=== PATIENT | female | born 1940 | race Caucasian/White ===

== ENCOUNTER 2023-02-05 07:18 | Inpatient (IN) | payer OTHER ==
[~2023-02-05] VITALS: Ht 393.7 cm; Wt 95.1 kg
[2023-02-05] MEDS ORDERED: methylPREDNISolone SOD SUCC 125 MG/2 ML VL IV ONE ×2 (07:30→08:15)
[2023-02-05 08:08] LABS: Basophils # (auto) 0.1 10 ^3/uL (0-0.2); Basophils % (auto) 0.5 % (0.0-2.0); Eosinophils # (auto) 0.6 10 ^3/uL (0-0.8); Eosinophils % (auto) 5.2 % (0.0-7.0); Hematocrit 36.6 % (36.0-46.0); Lymphocytes # (auto) 1.3 10 ^3/uL (0.4-5.4); Lymphocytes % (auto) 11.9 % (10.0-50.0); Mean Corpuscular Hemoglobin 30.5 pg (28.0-32.0); Mean Corpuscular Hgb Conc. 32.8 g/dL (32.0-36.0); Mean Corpuscular Volume 92.9 fL (80.0-100.0); Monocytes # (auto) 0.7 10 ^3/uL (0-1.3); Neutrophils # (auto) 8.1 10 ^3/uL (1.6-8.6); Neutrophils % (auto) 75.4 % (37.0-80.0); Nucleated Red Blood Cells % 0.3 %; Red Blood Cells 3.94 10^6/uL (4.0-5.20); Red Cell Distribution Width 15.5 % (11.8-14.3); White Blood Cell 10.7 10^3/uL (4.4-10.8)
[2023-02-05] MEDS ORDERED: methylPREDNISolone SOD SUCC 40 MG/ML VL ONE (08:15)
[2023-02-05 08:23] LABS: Albumin 3.4 g/dL (3.4-5.0); Calcium 8.9 mg/dL (8.5-10.1); Potassium 4.4 mmol/L (3.5-5.1)
[2023-02-05 08:25] LABS: Bilirubin, Total 0.6 mg/dL (0.2-1.0); Total Protein 7.4 g/dL (6.4-8.2)
[2023-02-05 08:33] LABS: BUN/Creatinine Ratio 20.5 (10.0-20.0)
[2023-02-05 08:46] LABS: INR 1.05 (0.9-1.15); Partial Thromboplastin Time 30.8 sec (24.6-33.4)
[2023-02-05] MEDS ORDERED: cefTRIAXone 1GM/50ML D5W 50 ML IV ONE (10:15)
[2023-02-05] MEDS ORDERED: AZITHROMYCIN 500MG/ 250ML 250 ML IV ONE (10:15)
[2023-02-05] MEDS: SODIUM CHLORIDE 0.9% 1,000 ML IV SCH ×2 (12:00→22:48)
[2023-02-05] MEDS ORDERED: MORPHINE SULFATE INJ 2 MG/ml SYRG IV PRN (12:00)
[2023-02-05] MEDS ORDERED: NITROGLYCERIN 0.4 MG SL TAB SL PRN (12:00)
[2023-02-05] MEDS ORDERED: ONDANSETRON HCL 4 MG/2 ML VIAL IV PRN (12:00)
[2023-02-05] MEDS ORDERED: PROMETHAZINE W/CODEINE 5 ML ORAL SYRUP PO PRN (12:00)
[2023-02-05 13:54] LABS: Urine Bacteria NONE SEEN /hpf (None Seen); Urine Blood Negative /uL (Negative); Urine Specific Gravity 1.014 (1.001-1.035); Urine WBC <1 /hpf (0 - 5)
[2023-02-05] MEDS ORDERED: ALBUTEROL SULF HFA 90MCG INH 200DOSE IN SCH (14:00)
[2023-02-05] MEDS: PIPERACILLIN-TAZOB 3.375GM 100 ML IV SCH ×2 (14:06→22:48)
[2023-02-05] MEDS: ALBUTEROL SULF 2.5 MG/0.5ML(0.5%) NEB SOLN NEB SCH ×2 (14:26→22:55)
[2023-02-05] MEDS: amLODIPine BESYLATE 5 MG TAB PO SCH (17:31)
[2023-02-05] MEDS ORDERED: AMIODARONE 450mg/250ml AE 250 ML IV SCH (18:30)
[2023-02-05] MEDS ORDERED: AMIODARONE HCL (50 MG/ ML) 3 ML VIAL IV ONE (18:42)
[2023-02-05] MEDS: AMIODARONE HCL 150 MG in D5W 5% 100 ML IV ONE ×2 (18:46→19:33)
[2023-02-05] MEDS ORDERED: DIGOXIN (250MCG/ML) 2 ML AMPULE IV ONE (20:00)
[2023-02-05] MEDS: ENOXAPARIN SOD 80 MG/0.8ML SYRINGE SC SCH (21:02)
[2023-02-05] MEDS ORDERED: METOPROLOL TARTRATE 25 MG TAB PO SCH (22:00)
[2023-02-05] MEDS ORDERED: ENOXAPARIN SOD 60 MG/0.6 ML SYRINGE SC SCH (22:00)
[2023-02-05] MEDS: methylPREDNISolone SOD SUCC 40 MG/ML VL IV SCH (22:48)
[2023-02-05] MEDS: CARVEDILOL 3.125 MG TAB PO SCH (22:48)
[2023-02-05 23:55] VITALS: BP 121/79
[2023-02-06] MEDS: AMIODARONE 450mg/250ml AE 250 ML IV SCH ×3 (00:30→21:03)
[2023-02-06] MEDS ORDERED: BUSP15TA60 PO (00:46)
[2023-02-06] MEDS ORDERED: MULT-1018 PO (00:46)
[2023-02-06] MEDS ORDERED: ZINC220C8 PO (00:46)
[2023-02-06] MEDS ORDERED: ATOR20TA50 PO (00:46)
[2023-02-06] MEDS ORDERED: ALBU2SYP10 NEB (00:46)
[2023-02-06] MEDS ORDERED: FURO1TAB33 PO (00:46)
[2023-02-06] MEDS ORDERED: CHOL20007 PO (00:46)
[2023-02-06] MEDS ORDERED: SODI10PA PO (00:46)
[2023-02-06] MEDS: PIPERACILLIN-TAZOB 3.375GM 100 ML IV SCH ×3 (05:30→21:14)
[2023-02-06 05:33] VITALS: BP_SYST 101; BP_SYST 130; BP_DIAS 57; BP_DIAS 80
[2023-02-06] MEDS: ALBUTEROL SULF 2.5 MG/0.5ML(0.5%) NEB SOLN NEB SCH ×2 (06:53→21:51)
[2023-02-06] MEDS ORDERED: ASPI-543 PO (06:57)
[2023-02-06] MEDS ORDERED: PSYL58.632 PO (06:57)
[2023-02-06 07:19] LABS: BUN/Creatinine Ratio 20.6 (10.0-20.0); Calcium 8.7 mg/dL (8.5-10.1); Potassium 4.5 mmol/L (3.5-5.1)
[2023-02-06] MEDS: ENOXAPARIN SOD 80 MG/0.8ML SYRINGE SC SCH ×3 (08:19→20:45)
[2023-02-06] MEDS: CARVEDILOL 3.125 MG TAB PO SCH ×2 (08:58→21:13)
[2023-02-06] MEDS: FAMOTIDINE 20 MG TAB PO SCH (08:58)
[2023-02-06] MEDS: methylPREDNISolone SOD SUCC 40 MG/ML VL IV SCH ×2 (08:59→21:13)
[2023-02-06 09:00] VITALS: BP 135/91
[2023-02-06 13:00] VITALS: BP 130/89
[2023-02-06] MEDS: SODIUM CHLORIDE 0.9% 1,000 ML IV SCH ×2 (13:45→22:05)
[2023-02-06] MEDS ORDERED: ALBUTEROL SULF 2.5 MG/0.5ML(0.5%) NEB SOLN NEB PRN (13:45)
[2023-02-06 16:47] VITALS: BP 154/81
[2023-02-06] MEDS: amLODIPine BESYLATE 5 MG TAB PO SCH (18:10)
[2023-02-06] MEDS ORDERED: ALBUTEROL SULF HFA 90MCG INH 200DOSE IN PRN (20:00)
[2023-02-06] MEDS: busPIRone HCL 10 MG TAB PO SCH (21:13)
[2023-02-06] MEDS: ATORVASTATIN 20 MG TAB PO SCH (21:14)
[2023-02-06] MEDS: ACETYLCYSTEINE 20%(200MG/ML) SOL 4ML NEB SCH (21:51)
[2023-02-07] MEDS: SODIUM CHLORIDE 0.9% 1,000 ML IV SCH ×3 (02:23→23:05)
[2023-02-07 05:00] VITALS: BP 143/95
[2023-02-07] MEDS: PIPERACILLIN-TAZOB 3.375GM 100 ML IV SCH ×2 (05:19→14:11)
[2023-02-07 05:54] LABS: Potassium 4.8 mmol/L (3.5-5.1)
[2023-02-07 06:05] LABS: Albumin 3.2 g/dL (3.4-5.0); BUN/Creatinine Ratio 26.4 (10.0-20.0); Bilirubin, Total 0.4 mg/dL (0.2-1.0); Calcium 8.4 mg/dL (8.5-10.1); Total Protein 6.9 g/dL (6.4-8.2)
[2023-02-07] MEDS: ACETYLCYSTEINE 20%(200MG/ML) SOL 4ML NEB SCH ×3 (07:36→21:59)
[2023-02-07] MEDS: ALBUTEROL SULF 2.5 MG/0.5ML(0.5%) NEB SOLN NEB SCH ×3 (07:36→21:59)
[2023-02-07 08:00] VITALS: BP 150/89
[2023-02-07 09:00] VITALS: BP 150/89
[2023-02-07] MEDS: methylPREDNISolone SOD SUCC 40 MG/ML VL IV SCH ×2 (10:26→22:05)
[2023-02-07] MEDS: ENOXAPARIN SOD 80 MG/0.8ML SYRINGE SC SCH ×2 (10:26→19:32)
[2023-02-07] MEDS: CARVEDILOL 3.125 MG TAB PO SCH ×2 (10:27→22:06)
[2023-02-07] MEDS: busPIRone HCL 10 MG TAB PO SCH ×2 (10:27→22:05)
[2023-02-07] MEDS: FAMOTIDINE 20 MG TAB PO SCH (10:27)
[2023-02-07 13:00] VITALS: BP 129/88
[2023-02-07] MEDS: AMIODARONE 450mg/250ml AE 250 ML IV SCH (16:42)
[2023-02-07 17:00] VITALS: BP 155/91
[2023-02-07] MEDS: amLODIPine BESYLATE 5 MG TAB PO SCH (17:53)
[2023-02-07] MEDS: DOXYCYCLINE 100MG/250ML 250 ML IV SCH (19:32)
[2023-02-07] MEDS: ATORVASTATIN 20 MG TAB PO SCH (22:05)
[2023-02-07 23:32] VITALS: BP 118/73
[2023-02-08] VITALS (15 sets, daily range): BP systolic 118–147; BP diastolic 60–80
[2023-02-08] MEDS: DOXYCYCLINE 100MG/250ML 250 ML IV SCH (06:43)
[2023-02-08] MEDS: ALBUTEROL SULF 2.5 MG/0.5ML(0.5%) NEB SOLN NEB SCH ×2 (07:05→14:35)
[2023-02-08] MEDS: SODIUM CHLORIDE 0.9% 1,000 ML IV SCH (07:25)
[2023-02-08] MEDS: ENOXAPARIN SOD 80 MG/0.8ML SYRINGE SC SCH (09:12)
[2023-02-08] MEDS: busPIRone HCL 10 MG TAB PO SCH (10:16)
[2023-02-08] MEDS: methylPREDNISolone SOD SUCC 40 MG/ML VL IV SCH (10:16)
[2023-02-08] MEDS: CARVEDILOL 3.125 MG TAB PO SCH (10:17)
[2023-02-08] MEDS: FAMOTIDINE 20 MG TAB PO SCH (10:17)
[2023-02-08] MEDS: ACETYLCYSTEINE 20%(200MG/ML) SOL 4ML NEB SCH ×2 (13:39→14:35)
[2023-02-08] MEDS ORDERED: MULT-1018 PO (15:07)
[2023-02-08] MEDS ORDERED: APIX2.5T PO (15:07)
[2023-02-08] MEDS ORDERED: GUAI1SOL3 PO (15:07)
[2023-02-08] MEDS ORDERED: CAR3125T PO (15:07)
[2023-02-08] MEDS ORDERED: LOPERAMIDE HCL 2 MG CAP/TAB PO PRN (17:00)
[2023-02-08] MEDS: amLODIPine BESYLATE 5 MG TAB PO SCH (18:44)
[2023-02-08] MEDS ORDERED: APIXABAN 2.5 MG TAB PO SCH (22:00)
== END 2023-02-08 19:49 | disposition home or self-care (01) | DRG 177 ==
LOC: EDBD 07:18 → ER 07:18 → TELE 11:52 → TELE-WESTW 23:38
PROVIDERS: ADMIT Hospitalist; ATTEND Hospitalist
DX: U07.1 COVID-19 (principal); J18.9 Pneumonia, unspecified organism; J96.00 Acute respiratory failure, unspecified whether with hypoxia or hypercapnia; I48.92 Unspecified atrial flutter; J98.11 Atelectasis; N17.9 Acute kidney failure, unspecified; E66.9 Obesity, unspecified; U09.9 Post COVID-19 condition, unspecified; I12.9 Hypertensive chronic kidney disease with stage 1 through stage 4 chronic kidney disease, or unspecified chronic kidney disease; I48.91 Unspecified atrial fibrillation; N18.9 Chronic kidney disease, unspecified; Z68.35 Body mass index [BMI] 35.0-35.9, adult; Z82.49 Family history of ischemic heart disease and other diseases of the circulatory system
CPT/HCPCS: 36415; 71045; 76775; 80048; 80053; 81001; 83880; 84484; 85025; 85379; 85610; 85730; 87426; 93005; 93306; 94640; 96365; 96368; 97110; 97116; 97163; 97530; 99291; G0378; J0696; J2405; J2543; J3490; J7060

== ENCOUNTER 2023-02-10 19:46 | Inpatient (IN) | payer OTHER ==
[~2023-02-10] VITALS: Ht 160 cm; Wt 81.6 kg
[~2023-02-10 19:46] MED LIST: ALBU2SYP10 NEB; APIX2.5T PO; ATOR20TA50 PO; BUSP15TA60 PO; CAR3125T PO; CHOL20007 PO; FURO1TAB33 PO; GUAI1SOL3 PO; MULT-1018 PO
[2023-02-10 20:51] LABS: Basophils # (auto) 0 10 ^3/uL (0-0.2); Basophils % (auto) 0.3 % (0.0-2.0); Eosinophils # (auto) 0.4 10 ^3/uL (0-0.8); Eosinophils % (auto) 3.4 % (0.0-7.0); Hematocrit 39.7 % (36.0-46.0); Hemoglobin 13.3 g/dL (12.2-16.2); Lymphocytes # (auto) 1.3 10 ^3/uL (0.4-5.4); Lymphocytes % (auto) 12.5 % (10.0-50.0); Mean Corpuscular Hemoglobin 30.3 pg (28.0-32.0); Mean Corpuscular Hgb Conc. 33.5 g/dL (32.0-36.0); Mean Corpuscular Volume 90.7 fL (80.0-100.0); Monocytes # (auto) 1.5 10 ^3/uL (0-1.3); Monocytes % (auto) 13.5 % (0.0-12.0); Neutrophils # (auto) 7.6 10 ^3/uL (1.6-8.6); Neutrophils % (auto) 70.3 % (37.0-80.0); Nucleated Red Blood Cells % 0.3 %; Red Blood Cells 4.38 10^6/uL (4.0-5.20); Red Cell Distribution Width 15.2 % (11.8-14.3); White Blood Cell 10.8 10^3/uL (4.4-10.8)
[2023-02-10] MEDS ORDERED: FUROSEMIDE 20 MG TAB PO ONE (21:00)
[2023-02-10] MEDS ORDERED: ALPRAZolam 0.25 MG TAB PO ONE (21:00)
[2023-02-10 21:05] LABS: Albumin 3.3 g/dL (3.4-5.0); BUN/Creatinine Ratio 30.8 (10.0-20.0); Calcium 9.1 mg/dL (8.5-10.1); Magnesium 2.6 mg/dL (1.6-2.6); Potassium 4.2 mmol/L (3.5-5.1)
[2023-02-10 21:06] LABS: INR 1.05 (0.9-1.15); Partial Thromboplastin Time 29.1 sec (24.6-33.4)
[2023-02-10 21:07] LABS: Bilirubin, Total 0.7 mg/dL (0.2-1.0); Total Protein 7.1 g/dL (6.4-8.2)
[2023-02-11 03:58] LABS: Urine Bacteria NONE SEEN /hpf (None Seen); Urine Blood Negative /uL (Negative); Urine Specific Gravity 1.006 (1.001-1.035); Urine WBC 1 /hpf (0 - 5)
[2023-02-11] MEDS ORDERED: HEPARIN SODIUM (PORCINE) 5000 UNITS/ML 1ML VIAL IV ONE (04:45)
[2023-02-11] MEDS ORDERED: MORPHINE SULFATE INJ 2 MG/ml SYRG IV PRN (05:00)
[2023-02-11] MEDS ORDERED: ONDANSETRON HCL 4 MG/2 ML VIAL IV PRN (05:00)
[2023-02-11] MEDS ORDERED: ACETAMINOPHEN 325 MG TAB PO PRN (05:00)
[2023-02-11] MEDS ORDERED: NITROGLYCERIN 0.4 MG SL TAB SL PRN (05:00)
[2023-02-11] MEDS ORDERED: HEPARIN SODIUM (PORCINE) 5000 UNITS/ML 1ML VIAL IV PRN (05:15)
[2023-02-11] MEDS: ALBUTEROL SULF 2.5 MG/0.5ML(0.5%) NEB SOLN NEB PRN (06:08)
[2023-02-11] MEDS: HEPARIN DRIP/D5W 100UNITS/ML 250 ML IV SCH (06:15)
[2023-02-11 06:27] VITALS: BP 148/68
[2023-02-11] MEDS: FUROSEMIDE 20 MG/2 ML VIAL IV SCH ×2 (06:31→16:01)
[2023-02-11 07:54] LABS: INR 1.14 (0.9-1.15); Partial Thromboplastin Time 41.8 sec (24.6-33.4)
[2023-02-11] MEDS ORDERED: PANTOPRAZOLE 40 MG TAB PO SCH (10:00)
[2023-02-11] MEDS ORDERED: ASPirin 81 mg TAB PO SCH (10:00)
[2023-02-11] MEDS: CARVEDILOL 3.125 MG TAB PO SCH ×2 (10:47→22:44)
[2023-02-11] MEDS: APIXABAN 2.5 MG TAB PO SCH ×2 (10:48→22:43)
[2023-02-11] MEDS ORDERED: metOLazone 5 MG TAB PO ONE (13:30)
[2023-02-11 13:52] LABS: INR 1.14 (0.9-1.15); Partial Thromboplastin Time 45.7 sec (24.6-33.4)
[2023-02-11] MEDS ORDERED: busPIRone HCL 10 MG TAB PO PRN (18:00)
[2023-02-11 21:06] LABS: INR 1.15 (0.9-1.15); Partial Thromboplastin Time 66.1 sec (24.6-33.4)
[2023-02-11] MEDS: ATORVASTATIN 20 MG TAB PO SCH (22:44)
[2023-02-12] MEDS: HEPARIN DRIP/D5W 100UNITS/ML 250 ML IV SCH (03:18)
[2023-02-12 05:55] LABS: Basophils # (auto) 0.1 10 ^3/uL (0-0.2); Basophils % (auto) 0.8 % (0.0-2.0); Eosinophils # (auto) 0.7 10 ^3/uL (0-0.8); Eosinophils % (auto) 5.7 % (0.0-7.0); Hematocrit 38.5 % (36.0-46.0); Hemoglobin 13.3 g/dL (12.2-16.2); Lymphocytes % (auto) 17.5 % (10.0-50.0); Mean Corpuscular Hgb Conc. 34.6 g/dL (32.0-36.0); Mean Corpuscular Volume 89.6 fL (80.0-100.0); Monocytes # (auto) 1.1 10 ^3/uL (0-1.3); Monocytes % (auto) 9.8 % (0.0-12.0); Neutrophils # (auto) 7.6 10 ^3/uL (1.6-8.6); Neutrophils % (auto) 66.2 % (37.0-80.0); Nucleated Red Blood Cells % 0.1 %; White Blood Cell 11.5 10^3/uL (4.4-10.8)
[2023-02-12 06:11] LABS: Potassium 4.2 mmol/L (3.5-5.1)
[2023-02-12 06:26] LABS: Albumin 2.8 g/dL (3.4-5.0); BUN/Creatinine Ratio 23.1 (10.0-20.0); Bilirubin, Total 0.8 mg/dL (0.2-1.0); Calcium 8.5 mg/dL (8.5-10.1)
[2023-02-12] MEDS ORDERED: FUROSEMIDE 20 MG TAB PO SCH (10:00)
[2023-02-12] MEDS: ASPirin 81 mg TAB PO SCH (10:01)
[2023-02-12] MEDS: APIXABAN 2.5 MG TAB PO SCH ×2 (10:02→21:54)
[2023-02-12] MEDS: ALBUTEROL SULF 2.5 MG/0.5ML(0.5%) NEB SOLN NEB PRN (10:08)
[2023-02-12] MEDS: CHOLECALCIFEROL (VITD3) 1,000UNIT=25mCg TAB PO SCH (10:13)
[2023-02-12] MEDS: FUROSEMIDE 20 MG TAB PO SCH (12:02)
[2023-02-12] MEDS: CARVEDILOL 3.125 MG TAB PO SCH ×2 (12:03→21:54)
[2023-02-12] MEDS: ATORVASTATIN 20 MG TAB PO SCH (21:54)
[2023-02-12 22:03] VITALS: BP_SYST 124; BP_SYST 130; BP_DIAS 64; BP_DIAS 79
[2023-02-12] MEDS ORDERED: levoFLOXacin 500MG 100 ML IV ONE (22:15)
[2023-02-13 04:24] VITALS: BP 113/48
[2023-02-13 09:00] VITALS: BP 118/51
[2023-02-13] MEDS: levoFLOXacin 250MG 50 ML IV SCH (09:33)
[2023-02-13] MEDS: APIXABAN 2.5 MG TAB PO SCH ×2 (09:33→21:33)
[2023-02-13] MEDS: FUROSEMIDE 20 MG TAB PO SCH (09:34)
[2023-02-13] MEDS: CHOLECALCIFEROL (VITD3) 1,000UNIT=25mCg TAB PO SCH (09:35)
[2023-02-13] MEDS: ASPirin 81 mg TAB PO SCH (09:35)
[2023-02-13] MEDS: CARVEDILOL 3.125 MG TAB PO SCH ×2 (09:35→21:33)
[2023-02-13 12:41] VITALS: BP 108/44
[2023-02-13] MEDS ORDERED: FUR20T PO (14:28)
[2023-02-13] MEDS ORDERED: LEVO500T31 PO (14:28)
[2023-02-13 16:29] VITALS: BP 127/58
[2023-02-13] MEDS: ATORVASTATIN 20 MG TAB PO SCH (21:34)
[2023-02-13 22:00] VITALS: BP 112/53
[2023-02-14 05:00] VITALS: BP 120/58
[2023-02-14 07:46] VITALS: BP 113/64
[2023-02-14 09:00] VITALS: BP 112/69
[2023-02-14] MEDS: FUROSEMIDE 20 MG TAB PO SCH (09:43)
[2023-02-14] MEDS: CARVEDILOL 3.125 MG TAB PO SCH (09:44)
[2023-02-14] MEDS: APIXABAN 2.5 MG TAB PO SCH (09:45)
[2023-02-14] MEDS: CHOLECALCIFEROL (VITD3) 1,000UNIT=25mCg TAB PO SCH (09:45)
[2023-02-14] MEDS: levoFLOXacin 250MG 50 ML IV SCH (09:45)
== END 2023-02-14 13:05 | disposition hospice, home (50) | DRG 280 ==
LOC: EDBD 19:46 → ER 19:46 → TELE 02-11 04:51 → TELE-WESTW 02-12 18:07
PROVIDERS: ADMIT Nurse Practitioner; ATTEND Internal Medicine
DX: I21.4 Non-ST elevation (NSTEMI) myocardial infarction (principal); J18.9 Pneumonia, unspecified organism; J96.01 Acute respiratory failure with hypoxia; I13.0 Hypertensive heart and chronic kidney disease with heart failure and stage 1 through stage 4 chronic kidney disease, or unspecified chronic kidney disease; J98.11 Atelectasis; I50.20 Unspecified systolic (congestive) heart failure; N17.9 Acute kidney failure, unspecified; I35.0 Nonrheumatic aortic (valve) stenosis; E66.9 Obesity, unspecified; F41.9 Anxiety disorder, unspecified; Z20.822 Contact with and (suspected) exposure to COVID-19; R79.89 Other specified abnormal findings of blood chemistry; I48.91 Unspecified atrial fibrillation; N18.9 Chronic kidney disease, unspecified; F32.A Depression, unspecified; I25.2 Old myocardial infarction; Z86.16 Personal history of COVID-19; Z68.31 Body mass index [BMI] 31.0-31.9, adult; Z82.49 Family history of ischemic heart disease and other diseases of the circulatory system; Z87.01 Personal history of pneumonia (recurrent); Z79.899 Other long term (current) drug therapy
CPT/HCPCS: 36415; 71045; 71250; 76604; 78582; 80053; 81001; 83735; 83880; 84484; 85025; 85610; 85730; 87040; 87081; 87426; 93970; 94640; 99291; G0378; J1956

== ENCOUNTER 2023-06-25 07:47 | Day surgery (SDC) | payer OTHER ==
[~2023-06-25] VITALS: Ht 162.6 cm; Wt 81.6 kg
[2023-06-25] VITALS (9 sets, daily range): BP systolic 89–114; BP diastolic 33–56; PULSE 72–82; RESP 13–17; TEMP 97.9; O2SAT 91–95
[~2023-06-25 07:47] MED LIST changes: +ALBU108A5 IN; -ALBU2SYP10 NEB; +ASPI1TAB19 PO; -CAR3125T PO; +CARV3.1240 PO; +CHOL1CAP55 PO; -CHOL20007 PO; -FURO1TAB33 PO; +FURO20TA3 PO; -GUAI1SOL3 PO; +LEVO500T91 PO; +LIDOCAINE VISCOUS 2% 15ML UD PO ONE; +MIDAZOLAM HCL 2MG/2ML 2ml VIAL (1mg/ml) IV ONE; -MULT-1018 PO; +PANT40TA2 PO; +fentaNYL CITRATE 100 MCG/2 ML VL IV ONE
[2023-06-25] MEDS ORDERED: VERAPAMIL 2.5MG/ML INJ 2ML VIAL IV ONE (09:33)
[2023-06-25] MEDS ORDERED: ANGIOMAX 250 MG VIAL IV ONE (09:33)
[2023-06-25] MEDS ORDERED: LIDOCAINE 2%HCL (LOCAL ANESTH.) INJ 10ml MDV ONE (09:33)
[2023-06-25] MEDS ORDERED: IODIXANOL 320MG/ML 100ML BTL IV ONE (09:33)
[2023-06-25] MEDS ORDERED: HEPARIN SODIUM (PORCINE) 5000 UNITS/ML 1ML VIAL ONE (09:33)
[2023-06-25] MEDS ORDERED: SODIUM CHL 0.9% 0 ML ONE (09:33)
[2023-06-25] MEDS ORDERED: LIDOCAINE 2%HCL (LOCAL ANESTH.) INJ 20ML MDV ONE (09:35)
== END 2023-06-25 13:10 | disposition home or self-care (01) ==
LOC: CATH 07:47
PROVIDERS: ATTEND Internal Medicine
DX: I25.10 Atherosclerotic heart disease of native coronary artery without angina pectoris (principal); I35.0 Nonrheumatic aortic (valve) stenosis; Z79.82 Long term (current) use of aspirin; Z79.899 Other long term (current) drug therapy; Z87.891 Personal history of nicotine dependence; Z82.49 Family history of ischemic heart disease and other diseases of the circulatory system; Z90.710 Acquired absence of both cervix and uterus
CPT/HCPCS: 93005; 93312; 93458; C1725; C1757; C1769; C1894; J1644; J2250; J3010; J7030; Q9967; 99152; 99153; J2001

== ENCOUNTER 2024-02-21 09:14 | Inpatient (IN) | payer OTHER ==
[2024-02-21] VITALS (9 sets, daily range): BP systolic 103–112; BP diastolic 32–46; PULSE 77–106; RESP 13–25; TEMP 98.2–99.1; O2SAT 95–100
[~2024-02-21] VITALS: Ht 154.9 cm; Wt 93.3 kg
[~2024-02-21 09:14] MED LIST changes: -LIDOCAINE VISCOUS 2% 15ML UD PO ONE; -MIDAZOLAM HCL 2MG/2ML 2ml VIAL (1mg/ml) IV ONE; -fentaNYL CITRATE 100 MCG/2 ML VL IV ONE
[2024-02-21 09:41] LABS: Basophils # (auto) 0.1 10 ^3/uL (0-0.2); Eosinophils # (auto) 0.3 10 ^3/uL (0-0.8)
[2024-02-21 09:44] LABS: Basophils % (auto) 1.4 % (0.0-2.0); Eosinophils % (auto) 4.4 % (0.0-7.0); Hematocrit 17.3 % (36.0-46.0); Lymphocytes % (auto) 15.5 % (10.0-50.0); Mean Corpuscular Hemoglobin 28.6 pg (28.0-32.0); Mean Corpuscular Hgb Conc. 32.5 g/dL (32.0-36.0); Mean Corpuscular Volume 88.1 fL (80.0-100.0); Monocytes # (auto) 0.5 10 ^3/uL (0-1.3); Monocytes % (auto) 8.4 % (0.0-12.0); Neutrophils # (auto) 4.6 10 ^3/uL (1.6-8.6); Neutrophils % (auto) 70.3 % (37.0-80.0); Nucleated Red Blood Cells % 0.1 %; Red Blood Cells 1.96 10^6/uL (4.0-5.20); Red Cell Distribution Width 16.1 % (11.8-14.3); White Blood Cell 6.5 10^3/uL (4.4-10.8)
[2024-02-21 10:00] LABS: Alanine Aminotransferase 16 U/L (7-40); Alkaline Phosphatase 45 U/L (46-116); Anion Gap 10 (5-15); Aspartate Aminotransferase 21 U/L (13-40); BUN/Creatinine Ratio 29.9 (10.0-20.0); Blood Urea Nitrogen 52 mg/dL (9-23); Carbon Dioxide 22 mmol/L (20-30); Chloride 108 mmol/L (98-107); Glucose 129 mg/dL (74-106); Potassium 4.2 mmol/L (3.5-5.1); Sodium 140 mmol/L (136-145)
[2024-02-21 10:01] LABS: Bilirubin, Total 0.3 mg/dL (0.2-1.0); Total Protein 5.5 g/dL (5.7-8.2)
[2024-02-21 10:07] LABS: Hemoglobin 5.6 g/dL (12.2-16.2)
[2024-02-21] MEDS: FUROSEMIDE 20 MG/2 ML VIAL IV ONE (12:17)
[2024-02-21 13:40] LABS: Urine Bacteria None Seen /hpf (None Seen)
[2024-02-21 13:56] LABS: Urine Blood Negative /uL (Negative); Urine Clarity Clear (Clear); Urine Hyaline Cast FEW /lpf (0 - 2); Urine Protein, UAD Negative (Negative); Urine Specific Gravity 1.008 (1.001-1.035); Urine Urobilinogen Normal (Negative); Urine WBC <1 /hpf (0 - 5); Urine pH 5.5 (5.0-9.0)
[2024-02-21 13:59] LABS: Urine Color Straw (Yellow)
[2024-02-21] MEDS ORDERED: DOCUSATE SOD 100 MG CAP PO PRN (15:15)
[2024-02-21] MEDS ORDERED: ONDANSETRON HCL 4 MG/2 ML VIAL IV PRN (15:15)
[2024-02-21] MEDS ORDERED: HYDROcodone-ACET 5/325MG TAB PO PRN (15:15)
[2024-02-21] MEDS ORDERED: ACETAMINOPHEN 325 MG TAB PO PRN (15:15)
[2024-02-21] MEDS ORDERED: MORPHINE SULFATE INJ 2 MG/ml SYRG IV PRN ×2 (15:15)
[2024-02-21] MEDS: PANTOPRAZOLE 40mg/50ML NS AE 50 ML IV SCH (19:08)
[2024-02-21] MEDS: D5W/SOD CHLO 0.9% 1,000 ML IV SCH (20:43)
[2024-02-21 22:13] LABS: Hematocrit 22.1 % (36.0-46.0); Hemoglobin 7.1 g/dL (12.2-16.2)
[2024-02-22] VITALS (12 sets, daily range): BP systolic 100–139; BP diastolic 29–67; PULSE 74–97; RESP 16–74; TEMP 36.5; O2SAT 92–100
[2024-02-22 07:00] LABS: Eosinophils # (auto) 0.3 10 ^3/uL (0-0.8); Hemoglobin 8.3 g/dL (12.2-16.2); Neutrophils # (auto) 5.1 10 ^3/uL (1.6-8.6); White Blood Cell 7.6 10^3/uL (4.4-10.8)
[2024-02-22 07:02] LABS: Basophils # (auto) 0 10 ^3/uL (0-0.2); Basophils % (auto) 0.6 % (0.0-2.0); Hematocrit 25.2 % (36.0-46.0); Lymphocytes # (auto) 1.1 10 ^3/uL (0.4-5.4); Lymphocytes % (auto) 14.5 % (10.0-50.0); Mean Corpuscular Hemoglobin 29.8 pg (28.0-32.0); Mean Corpuscular Hgb Conc. 33.2 g/dL (32.0-36.0); Mean Corpuscular Volume 89.9 fL (80.0-100.0); Monocytes % (auto) 13.5 % (0.0-12.0); Neutrophils % (auto) 67.4 % (37.0-80.0); Nucleated Red Blood Cells % 0.1 %; Red Cell Distribution Width 15.8 % (11.8-14.3)
[2024-02-22 07:17] LABS: Alanine Aminotransferase 13 U/L (7-40); Albumin 3.7 g/dL (3.2-4.8); Alkaline Phosphatase 45 U/L (46-116); Anion Gap 8 (5-15); Aspartate Aminotransferase 19 U/L (13-40); BUN/Creatinine Ratio 23.5 (10.0-20.0); Carbon Dioxide 25 mmol/L (20-30); Chloride 112 mmol/L (98-107); Glucose 99 mg/dL (74-106); Potassium 4.3 mmol/L (3.5-5.1)
[2024-02-22 07:18] LABS: Bilirubin, Total 0.6 mg/dL (0.2-1.0); Total Protein 5.3 g/dL (5.7-8.2)
[2024-02-22 07:28] LABS: Blood Urea Nitrogen 38 mg/dL (9-23); Sodium 145 mmol/L (136-145)
[2024-02-22] MEDS ORDERED: LORazepam 2MG/ML-1ML VIAL ONE (13:14)
[2024-02-22] MEDS: LORazepam 2MG/ML-1ML VIAL IV ONE (13:23)
[2024-02-22 14:20] LABS: Hematocrit 26.8 % (36.0-46.0); Hemoglobin 8.6 g/dL (12.2-16.2)
[2024-02-22 22:28] LABS: Hemoglobin 7.8 g/dL (12.2-16.2)
[2024-02-23] VITALS (9 sets, daily range): BP systolic 113–138; BP diastolic 40–94; PULSE 68–85; RESP 16–19; TEMP 97.8–98.6; O2SAT 96–100
[2024-02-23 10:19] LABS: Basophils # (auto) 0 10 ^3/uL (0-0.2); Basophils % (auto) 0.5 % (0.0-2.0); Eosinophils # (auto) 0.3 10 ^3/uL (0-0.8); Eosinophils % (auto) 4.1 % (0.0-7.0); Hemoglobin 8.5 g/dL (12.2-16.2); Lymphocytes # (auto) 1.1 10 ^3/uL (0.4-5.4); Lymphocytes % (auto) 12.9 % (10.0-50.0); Mean Corpuscular Hemoglobin 29.7 pg (28.0-32.0); Mean Corpuscular Hgb Conc. 32.7 g/dL (32.0-36.0); Monocytes % (auto) 12.4 % (0.0-12.0); Neutrophils # (auto) 5.9 10 ^3/uL (1.6-8.6); Neutrophils % (auto) 70.1 % (37.0-80.0); Nucleated Red Blood Cells % 0.1 %; Red Blood Cells 2.86 10^6/uL (4.0-5.20); Red Cell Distribution Width 16.1 % (11.8-14.3); White Blood Cell 8.5 10^3/uL (4.4-10.8)
[2024-02-23 10:29] LABS: Alanine Aminotransferase 16 U/L (7-40); Albumin 3.9 g/dL (3.2-4.8); Alkaline Phosphatase 49 U/L (46-116); Anion Gap 10 (5-15); Aspartate Aminotransferase 29 U/L (13-40); BUN/Creatinine Ratio 13.7 (10.0-20.0); Bilirubin, Total 0.8 mg/dL (0.2-1.0); Blood Urea Nitrogen 19 mg/dL (9-23); Calcium 9.1 mg/dL (8.7-10.4); Carbon Dioxide 22 mmol/L (20-30); Chloride 110 mmol/L (98-107); Glucose 111 mg/dL (74-106); Potassium 4.5 mmol/L (3.5-5.1); Sodium 142 mmol/L (136-145)
[2024-02-23 10:34] LABS: INR 1.03 (0.9-1.15); Prothrombin Time 10.8 sec (9.3-11.8)
[2024-02-23] MEDS ORDERED: LIDOCAINE VISCOUS 2% 15ML UD ONE (14:06)
[2024-02-23] MEDS ORDERED: MIDAZOLAM HCL 2MG/2ML 2ml VIAL (1mg/ml) ONE (14:09)
[2024-02-23] MEDS ORDERED: fentaNYL CITRATE 100 MCG/2 ML VL ONE (14:09)
[2024-02-23] MEDS ORDERED: DexAMETHasone SOD PHOS 10MG/1ML VIAL INJ ONE (14:20)
[2024-02-23] MEDS ORDERED: PROPOFOL 10 MG/ML 20 ML IV ONE (14:20)
[2024-02-24] VITALS (8 sets, daily range): BP systolic 123–146; BP diastolic 52–73; PULSE 73–90; RESP 15–20; TEMP 97.5–99; O2SAT 93–98
[2024-02-25] VITALS (16 sets, daily range): BP systolic 97–159; BP diastolic 45–86; PULSE 64–103; RESP 18–24; TEMP 97.5–99.2; O2SAT 94–100
[2024-02-25] MEDS: NITROGLYCERIN 0.4 MG SL TAB SL PRN (08:13)
[2024-02-25] MEDS: ALBUTEROL SULF 2.5 MG/0.5ML(0.5%) NEB SOLN NEB PRN (15:34)
[2024-02-25] MEDS: IPRATROPIUM BROM 0.5 MG/2.5ML INH SOL NEB PRN (15:35)
[2024-02-25] MEDS: ALBUTEROL SULF 2.5 MG/0.5ML(0.5%) NEB SOLN NEB SCH (19:15)
[2024-02-25] MEDS: IPRATROPIUM BROM 0.5 MG/2.5ML INH SOL NEB SCH (19:15)
[2024-02-25] MEDS: CARVEDILOL 3.125 MG TAB PO SCH (22:00)
[2024-02-25] MEDS: APIXABAN 2.5 MG TAB PO SCH (22:34)
[2024-02-26] VITALS (16 sets, daily range): BP systolic 97–122; BP diastolic 43–59; PULSE 53–98; RESP 16–24; TEMP 97.9–99.2; O2SAT 93–100
[2024-02-26] MEDS: busPIRone HCL 10 MG TAB PO PRN (08:21)
[2024-02-26 16:13] LABS: Hematocrit 23.8 % (36.0-46.0); Hemoglobin 7.6 g/dL (12.2-16.2)
[2024-02-26] MEDS: busPIRone HCL 10 MG TAB PO SCH (21:37)
[2024-02-27] VITALS (18 sets, daily range): BP systolic 119–134; BP diastolic 47–66; PULSE 74–101; RESP 17–24; TEMP 98.1–98.9; O2SAT 96–100
[2024-02-27] MEDS ORDERED: FUROSEMIDE 20 MG/2 ML VIAL IV SCH (06:30)
[2024-02-27] MEDS: methylPREDNISolone SOD SUCC 125 MG/2 ML VL IV SCH (06:52)
[2024-02-27] MEDS: FUROSEMIDE 40 MG/4 ML VIAL IV ONE (12:17)
[2024-02-27 15:56] LABS: Hematocrit 25.6 % (36.0-46.0); Hemoglobin 8.3 g/dL (12.2-16.2); Mean Corpuscular Hemoglobin 28.9 pg (28.0-32.0); Red Blood Cells 2.86 10^6/uL (4.0-5.20)
[2024-02-27 15:57] LABS: Mean Corpuscular Hgb Conc. 32.3 g/dL (32.0-36.0); Mean Corpuscular Volume 89.5 fL (80.0-100.0); Red Cell Distribution Width 16.4 % (11.8-14.3); White Blood Cell 7.3 10^3/uL (4.4-10.8)
[2024-02-27 16:00] LABS: Basophils % (manual) 0 (0.0-2.0); Blast Cells 0; Eosinophils % (manual) 0 (0-7); Metamyelocytes % 0; Myelocytes % 0; Promyelocytes % 0; Reactive Lymphocytes 0
[2024-02-27 16:16] LABS: Alanine Aminotransferase 17 U/L (7-40); Alkaline Phosphatase 48 U/L (46-116); Anion Gap 9 (5-15); Aspartate Aminotransferase 16 U/L (13-40); BUN/Creatinine Ratio 10.5 (10.0-20.0); Bilirubin, Total 0.5 mg/dL (0.2-1.0); Blood Urea Nitrogen 15 mg/dL (9-23); Calcium 8.8 mg/dL (8.5-10.1); Carbon Dioxide 20 mmol/L (20-30); Chloride 111 mmol/L (98-107); Glucose 204 mg/dL (74-106); Potassium 4.8 mmol/L (3.5-5.1); Sodium 140 mmol/L (136-145); Total Protein 5.9 g/dL (5.7-8.2)
[2024-02-27 16:22] LABS: Band Neutrophils % (manual) 4; Lymphocytes % (manual) 7 (10.0-50.0); Monocytes % (manual) 1 (0-12); Platelet Estimate Adequate
[2024-02-28] VITALS (16 sets, daily range): BP systolic 122–146; BP diastolic 44–66; PULSE 70–93; RESP 16–21; TEMP 98.2–98.5; O2SAT 95–100
[2024-02-28] MEDS: THROAT LOZENGES(CEPASTAT) MT PRN (06:47)
[2024-02-28] MEDS: FUROSEMIDE 20 MG TAB PO SCH (15:12)
== END 2024-02-28 19:55 | DRG 811 ==
LOC: ER 09:14 → EDUNIT# 09:14 → EDBD 09:14 → TELE 15:03 → TELE-WESTW 23:20
PROVIDERS: ADMIT Internal Medicine; ATTEND Internal Medicine
PROC: 30233N1 Transfusion of Nonautologous Red Blood Cells into Peripheral Vein, Percutaneous Approach (ICD-10-PCS; principal; 2024-02-21)
PROC: 0DB48ZX Excision of Esophagogastric Junction, Via Natural or Artificial Opening Endoscopic, Diagnostic (ICD-10-PCS; 2024-02-23)
DX: D62 Acute posthemorrhagic anemia (principal); I50.33 Acute on chronic diastolic (congestive) heart failure; I13.0 Hypertensive heart and chronic kidney disease with heart failure and stage 1 through stage 4 chronic kidney disease, or unspecified chronic kidney disease; J45.901 Unspecified asthma with (acute) exacerbation; K92.1 Melena; I35.0 Nonrheumatic aortic (valve) stenosis; N18.9 Chronic kidney disease, unspecified; I25.10 Atherosclerotic heart disease of native coronary artery without angina pectoris; F41.1 Generalized anxiety disorder; Z88.5 Allergy status to narcotic agent
CPT/HCPCS: 36415; 71045; 80053; 81001; 82270; 83880; 84484; 85007; 85014; 85018; 85025; 85027; 85610; 86850; 86900; 86901; 86920; 93005; 94640; 96374; 97110; 97116; 97163; 97530; 99291; G0378; J1100; J2250; J2704; J7042

== ENCOUNTER 2025-06-11 09:41 | Inpatient (IN) | payer MEDICARE, MEDICAID ==
[~2025-06-11] VITALS: Ht 157.5 cm; Wt 96.0 kg
[~2025-06-11 09:41] MED LIST changes: +ALLO100T PO; -BUSP15TA60 PO; -CHOL1CAP55 PO; +FURO40TA4 PO; -LEVO500T91 PO; +MONT-8 PO
--- NOTE | 2025-06-11 10:01 | ED.PDOC ---
SOB-HPI HPI Comments This is a 85 year old female ARDENA presenting to the ED with chief complaint of SOB. Patient reports that she has been experiencing SOB with associated chest pain for the past 2 days. EMS relays that the patient was at 95% O2 on room air and the patient has been utilizing her Abuterol inhalers for relief. EMS states that they provided the patient a DuoNeb breathing treatment on route. Patient denies any N/V, cough, fever, chills, abdominal pain, or dizziness. Chief Complaint: Shortness of Breath Time Seen by MD: 09:59 Primary Care Provider: TIFFANIE Reviewed notes: Nurses Notes, [employer] Supervisor Notes, Medications, Allergies Information Source: Patient, Emergency Med Personnel Mode of Arrival: EMS Severity: Moderate Timing: Days Duration: Since onset Context: At Rest PE Risk Factors: None History of: COPD, CHF Prehospital treatment: Breathing Tx Associated Signs and Symptoms: Chest Pain Quality: Tightness Radiation: No Radiation Location: Substernal Past Medical History PAST MEDICAL HISTORY: CHF, CKF, COPD, GERD, HTN, [place] Surgical History (Other): Valve replacement 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 Hx Family History Family History: Reviewed,noncontributory to illness Social History Smoker: Non-Smoker Alcohol: Denies ETOH Use Drugs: Denies Drug Use Lives In: Home Constitutional: denies: chills, diaphoresis, fatigue, fever, malaise, sweats, weakness, others EENTM: denies: blurred vision, double vision, ear bleeding, ear discharge, ear drainage, ear pain, ear ringing, eye pain, eye redness, hearing loss, mouth pain, mouth swelling, nasal discharge, nose bleeding, nose congestion, nose pain, photophobia, tearing, throat pain, throat swelling, voice changes, others Respiratory: reports: shortness of breath; denies: cough, hemoptysis, orthopnea, SOB at rest, SOB with excertion, stridor, wheezing, others Cardiovascular: reports: chest pain; denies: dizzy spells, diaphoresis, Dyspnea on exertion, edema, irregular heart beat, left arm pain, lightheadedness, palpitations, PND, syncope, others Gastrointestinal: denies: abdomen distended, abdominal pain, blood streaked bowels, constipated, diarrhea, dysphagia, difficulty swallowing, hematemesis, melena, nausea, poor appetite, poor fluid intake, rectal bleeding, rectal pain, vomiting, others Genitourinary: denies: abnormal vagina bleeding, burning, dyspareunia, dysuria, flank pain, frequency, hematuria, incontinence, pain, , vagina discharge, urgency, others Neurological: denies: dizziness, fainting, headache, left sided numbness, left sided weakness, numbness, paresthesia, pre-existing deficit, right sided numbness, right sided weakness, seizure, speech problems, tingling, tremors, weakness, others Musculoskeletal: denies: back pain, gout, joint pain, joint swelling, muscle pain, muscle stiffness, neck pain, others Integumetry: denies: bruises, change in color, change in hair/nails, dryness, laceration, lesions, lumps, rash, wounds, others Allergic/Immunocompromised: denies: Difficulty Healing, Frequent Infections, Hives, Itching, others Hematologic/Lymphatic: denies: anemia, blood clots, easy bleeding, easy bruising, swollen glands, others Endocrine: denies: excessive hunger, excessive sweating, excessive thirst, excessive urination, flushing, intolerance to cold, intolerance to heat, unexplained weight gain, unexplained weight loss, others Psychiatric: denies: anxiety, bipolar disorder, depression, hopeless, panic disorder, schizophrenia, sleepless, suicidal, others All Other Systems: Reviewed and Negative Physical Exam General Appearance: No Apparent Distress, Normal HEENT: Normal ENT Inspection, Pharynx Normal, TMs Normal Neck: Full Range of Motion, Non-Tender, Normal, Normal Inspection Respiratory: Chest Non-Tender, Lungs Clear, No Accessory Muscle Use, No Respiratory Distress, Normal Breath Sounds Cardiovascular: Bradycardia, No Edema, No JVD, No Murmur, No Gallop, Normal Peripheral Pulses Breast Exam: Deferred Gastrointestinal: No Organomegaly, Non Tender, No Pulsatile Mass, Normal Bowel Sounds, Soft Genitalia: Deferred Pelvic: Deferred Rectal: Deferred Extremities: No calf tenderness, Normal capillary refill, Normal inspection, Normal range of motion, Non-tender, No pedal edema Musculoskeletal : Apperance: Normal Neurologic: Alert, bottle labeler II-XII nml as Tested, No Motor Deficits, Normal Affect, Normal Mood, No Sensory Deficits Cerebellar Function: NOT DONE Reflexes: NOT DONE Skin: Dry, Normal Color, Warm Peripheral Pulses: 3+ Radial (R), 3+ Radial (L) Lymphatic: No Adenopathy EKG EKG : Pulse Rate (adult): 43 [place]: Normal Cardiac Rhythm: SB Block: None Hypertrophy: None ST: Normal Was a procedure done? Was a procedure done?: No Differential Dx Differential Diagnosis: Anxiety, Asthma, Bronchitis, CHF, COPD, Pneumonia, Respiratory Distress X-Ray, Labs, Meds, VS Vital Signs Date Time Temp Pulse Resp B/P (MAP) Pulse Ox O2 Delivery O2 Flow Rate FiO2 06/11/25 10:54 40 20 99 Nasal Cannula* 3 32 06/11/25 10:36 131/34 06/11/25 10:35 98.0 45 14 131/34 (66) 99 98.0 06/11/25 10:01 43 06/11/25 09:54 43 06/11/25 09:50 98.3 50 18 164/62 97 98.3 Lab Test 06/11/25 11:33 06/11/25 10:25 Range/Units Troponin I High Sensitivity Pending 186 *H </=34 ng/L White Blood Count 12.3 H 4.4-10.8 10^3/uL Red Blood Count 3.45 L 4.0-5.20 10^6/uL Hemoglobin 10.8 L 12.2-16.2 g/dL Hematocrit 33.1 L 36.0-46.0 % Mean Corpuscular Volume 95.8 80.0-100.0 fL Mean Corpuscular Hemoglobin 31.2 28.0-32.0 pg Mean Corpuscular Hemoglobin Concent 32.6 32.0-36.0 g/dL Red Cell Distribution Width 16.5 H 11.8-14.3 % Platelet Count 211 140-450 10^3/uL Mean Platelet Volume 10.3 6.9-10.8 fL Neutrophils (%) (Auto) 68.0 37.0-80.0 % Lymphocytes (%) (Auto) 8.6 L 10.0-50.0 % Monocytes (%) (Auto) 13.4 H 0.0-12.0 % Eosinophils (%) (Auto) 9.3 H 0.0-7.0 % Basophils (%) (Auto) 0.7 0.0-2.0 % Neutrophils # (Auto) 8.4 1.6-8.6 10 ^3/uL Lymphocytes # (Auto) 1.1 0.4-5.4 10 ^3/uL Monocytes # (Auto) 1.7 H 0-1.3 10 ^3/uL Eosinophils # (Auto) 1.2 H 0-0.8 10 ^3/uL Basophils # (Auto) 0.1 0-0.2 10 ^3/uL Nucleated Red Blood Cells 0.1 % Sodium Level 141 136-145 mmol/L Potassium Level 4.5 3.5-5.1 mmol/L Chloride Level 107 98-107 mmol/L Carbon Dioxide Level 26 20-31 mmol/L Anion Gap 8 5-15 Blood Urea Nitrogen 39 H 9-23 mg/dL Creatinine 1.87 H 0.550-1.02 mg/dL Glomerular Filtration Rate Calc 26 >90 mL/min BUN/Creatinine Ratio 20.9 H 10.0-20.0 Serum Glucose 104 74-106 mg/dL Calcium Level 9.2 8.7-10.4 mg/dL B-Type Natriuretic Peptide 792.39 0-100 pg/mL Current Medications Medications (Trade) Dose Ordered Sig/Payam Route Start Time Stop Time Status Last Admin Furosemide (Lasix Injection) 40 mg ONCE ONCE IV 06/11/25 10:15 06/11/25 10:16 DC 06/11/25 10:36 Methylprednisolone Sodium Succinate (Solu Medrol) 125 mg ONCE ONCE IV 06/11/25 10:15 06/11/25 10:16 DC 06/11/25 10:36 Time of 1ST Reevaluation: 10:57 Reevaluation 1ST: Unchanged Patient Education/Counseling: Diagnosis, Treatment Family Education/Counseling: No Family Present SEPSIS Sepsis Screen Date sepsis recognized/suspect: Jun 11, 2025 Time Sepsis recognized/suspect: 951 Recent Procedure: No On Antibiotic Therapy: No Respiratory Rate >20: No Heart Rate >90: No Temp<36 C (96.8 F) or >38.3 C: No SBP <90 or MAP <65 mmHG: No New Acute Mental Status Change: No Is the patient on CPAP, BIPAP,: No Physician Orders Chest Portable (06/11/25 10:05) Urinalysis (06/11/25 10:05) Troponin-I Hs (06/11/25 11:05) Troponin-I Hs (06/11/25 13:05) Electrocardigram (06/11/25 10:09) Complete Blood Count (06/11/25 12:09) Comprehensive Metabolic Panel (06/11/25 12:09) PTPTT (06/11/25 12:09) Urinalysis (06/11/25 12:09) Chest Portable (06/11/25 12:09) Accucheck (06/11/25 12:09) Blood Culture (06/11/25 12:09) Vancomycin 1gm/200ml Pm (06/11/25 12:15) Lactic Acid W/ Reflex Order (06/11/25 14:00) Lactic Acid W/ Reflex Order (06/11/25 16:00) Cefepime 1gm/ 50ml (Maxipime 1gm/50ml) (06/11/25 14:00) Notify Md If Map <65 Or Bp<90 (06/11/25 12:09) If Map<65 Start Vasopressor (06/11/25 12:09) Sepsis Reassesment After Fluid (06/11/25 13:09) Vital Signs Date Time Temp Pulse Resp B/P (MAP) Pulse Ox O2 Delivery O2 Flow Rate FiO2 06/11/25 10:54 40 20 99 Nasal Cannula* 3 32 06/11/25 10:36 131/34 06/11/25 10:35 98.0 45 14 131/34 (66) 99 98.0 06/11/25 10:01 43 06/11/25 09:54 43 06/11/25 09:50 98.3 50 18 164/62 97 98.3 Laboratory Tests Test 06/11/25 10:25 White Blood Count 12.3 10^3/uL (4.4-10.8) H Medications Medications Dose Ordered Sig/Payam Route Start Time Stop Time Status Last Admin Dose Admin Furosemide 40 mg ONCE ONCE IV 06/11/25 10:15 06/11/25 10:16 DC 06/11/25 10:36 Methylprednisolone Sodium Succinate 125 mg ONCE ONCE IV 06/11/25 10:15 06/11/25 10:16 DC 06/11/25 10:36 Departure 1 Departure Time of Disposition: 12:15 Impression: Primary Impression: CHF (congestive heart failure) Qualified Codes: I50.43 - Acute on chronic combined systolic (congestive) and diastolic (congestive) heart failure Additional Impressions: NSTEMI (non-ST elevated myocardial infarction) Sepsis, unspecified organism Qualified Codes: A41.9 - Sepsis, unspecified organism Disposition: ADMITTED INPATIENT Admit to: Med Surg Condition: Guarded Critical Care Note Critical Care Time?: Yes (90 min-critical care time only) Stability Stability form required: No Heart Score Heart Score: Heart Score Response (Comments) Value History Moderate Suspicious 1 EKG Normal 0 Age >65 2 Risk Factors >3 or Hx ASHD 2 Troponin >3 x's Normal limit 2 Total 7 I personally scribed for NIMA DIAS MD ([email or web address]) on 06/11/25 at 10:01. Electronically submitted by Benji Fonseca ([email or web address]). NIMA DIAS MD Jun 11, 2025 10:01
--- NOTE | 2025-06-11 10:35 | DVH ---
EXAM: XY CHEST PORTABLE Indication: sob Technique: Single frontal view of the chest was obtained Comparison: XY CHEST PORTABLE on DOS: 02/27/24, XY CHEST PORTABLE on DOS: 02/21/24, US CHEST ULTRASOUND on DOS: 02/11/23, CT CHEST WITHOUT CONTRAST on DOS: 02/11/23, XY CHEST PORTABLE on DOS: 02/10/23 FINDINGS: Lines and Tubes: None Lungs: No focal consolidation. Pleura: No effusion. No pneumothorax. Cardiomediastinal contours: Unremarkable Bones: No acute osseous abnormality. IMPRESSION: No acute cardiopulmonary disease.
[2025-06-11] MEDS: FUROSEMIDE 40 MG/4 ML VIAL IV ONE (10:36)
[2025-06-11] MEDS: methylPREDNISolone SOD SUCC 125 MG/2 ML VL IV ONE (10:36)
[2025-06-11 10:54] VITALS: PULSE 40; RESP 20; O2SAT 99
[2025-06-11 11:10] LABS: Hematocrit 33.1 % (36.0-46.0); Hemoglobin 10.8 g/dL (12.2-16.2); Mean Corpuscular Hemoglobin 31.2 pg (28.0-32.0); Mean Corpuscular Volume 95.8 fL (80.0-100.0); Nucleated Red Blood Cells % 0.1 %
[2025-06-11 11:17] LABS: Chloride 107 mmol/L (98-107); Potassium 4.5 mmol/L (3.5-5.1); Sodium 141 mmol/L (136-145)
[2025-06-11 11:18] LABS: Anion Gap 8 (5-15); Calcium 9.2 mg/dL (8.7-10.4); Carbon Dioxide 26 mmol/L (20-31)
[2025-06-11 11:23] LABS: BUN/Creatinine Ratio 20.9 (10.0-20.0); Glucose 104 mg/dL (74-106)
[2025-06-11 11:24] LABS: Blood Urea Nitrogen 39 mg/dL (9-23)
[2025-06-11] MEDS: VANCOMYCIN 1GM/200ML PM 200 ML IV ONE (12:21)
[2025-06-11 12:36] LABS: Alanine Aminotransferase 14 U/L (7-40); Albumin 3.9 g/dL (3.2-4.8); Alkaline Phosphatase 75 U/L (46-116); Anion Gap 9 (5-15); BUN/Creatinine Ratio 23.7 (10.0-20.0); Calcium 8.8 mg/dL (8.7-10.4); Carbon Dioxide 26 mmol/L (20-31); Chloride 106 mmol/L (98-107); Glucose 101 mg/dL (74-106); Potassium 4.6 mmol/L (3.5-5.1); Sodium 141 mmol/L (136-145)
[2025-06-11 12:37] LABS: Bilirubin, Total 0.4 mg/dL (0.2-1.0)
[2025-06-11 12:38] LABS: Blood Urea Nitrogen 44 mg/dL (9-23); Total Protein 5.6 g/dL (5.7-8.2)
[2025-06-11 12:46] LABS: INR 1.06 (0.9-1.15); Partial Thromboplastin Time 28.4 SEC (24.5-34.5); Prothrombin Time 11.2 sec (9.3-11.8)
[2025-06-11] MEDS: CEFEPIME 1GM/ 50ML 50 ML IV SCH (14:52)
[2025-06-11 17:34] LABS: Urine Protein, UAD Negative (Negative)
--- NOTE | 2025-06-11 18:27 | ECG ---
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
--- NOTE | 2025-06-11 19:40 | DVHHP2 ---
Admitting Diagnosis: Shortness of breaths History of Present Illness This is a 85 year old female ARDENA presenting to the ED with chief complaint of SOB. Patient reports that she has been experiencing SOB with associated chest pain for the past 2 days. EMS relays that the patient was at 95% O2 on room air and the patient has been utilizing her Abuterol inhalers for relief. EMS states that they provided the patient a DuoNeb breathing treatment on route. Patient denies any N/V, cough, fever, chills, abdominal pain, or dizziness. PAST MEDICAL HISTORY: CHF, CKF, COPD, GERD, HTN, [place] Surgical History (Other): Valve replacement [employer] MAN History: Denies all [employer] MAN Hx Family History Family History: Reviewed,noncontributory to illness Social History Smoker: Non-Smoker Alcohol: Denies ETOH Use Drugs: Denies Drug Use Lives In: Home Patient Family History: Hypertension G8 MOTHER G8 FATHER 19 CHILD Allergies: Coded Allergies: Acetaminophen (Verified Allergy, Unknown, 06/11/25) Hydrocodone (Verified Allergy, Unknown, 06/11/25) Tramadol (Verified Allergy, Unknown, 02/21/24) Home Meds Reported Medications Pantoprazole Sodium Sesquihydr (Protonix) 40 Mg Tab, 1 TAB PO QAM for GERD 06/20/23 Aspirin (Aspirin) 81 Mg Tab, 2 TAB PO QAM for CAD 06/20/23 Furosemide (Furosemide) 20 Mg Tab, 1 TAB PO QAM for CHF 06/20/23 Carvedilol (Carvedilol) 3.125 Mg Tab, 1 TAB PO QAM for HYPERTENSION 06/20/23 Apixaban Base (ELIQUIS) 2.5 Mg Tab, 1 TAB PO BID for CAD 06/20/23 Albuterol Sulfate (Albuterol Sulfate Hfa) 108 Mcg/Act Aer, 2 PUFF IN QID PRN for SHORTNESS OF BREATH 06/20/23 Atorvastatin Calcium (ATORVASTATIN CALCIUM) 20 Mg Tab, 1 TAB PO QPM for HIGH CHOLESTEROL 02/06/23 Current Medications Current Medications Medications (Trade) Dose Ordered Sig/Payam Route PRN Reason Start Time Stop Time Status Last Admin Cefepime HCl 50 ml @ 12.5 mls/hr DAILY IV 06/11/25 14:00 06/11/25 14:52 Vital Signs Vital Signs Date Time Temp Pulse Resp B/P (MAP) Pulse Ox O2 Delivery O2 Flow Rate FiO2 06/11/25 16:00 46 12 172/61 (98) 94 06/11/25 10:54 Nasal Cannula* 3 32 06/11/25 10:35 98.0 98.0 Physical Exam Generally-85 years old woman, overweight, sitting on bed. Mild distress On nasal cannula HEENT-atraumatic normocephalic Heart-sinus bradycardic Lungs decreased breath sounds bilaterally Abdomen soft nontender nondistended Musculoskeletal-pedal edema, no cyanosis. Tender to palpate Neuro-AO x3, no focal deficits SEPSIS Sepsis Screen Date sepsis recognized/suspect: Jun 11, 2025 Time Sepsis recognized/suspect: 951 Recent Procedure: No On Antibiotic Therapy: No Respiratory Rate >20: No Heart Rate >90: No Temp<36 C (96.8 F) or >38.3 C: No SBP <90 or MAP <65 mmHG: No New Acute Mental Status Change: No Is the patient on CPAP, BIPAP,: No Physician Orders Chest Portable (06/11/25 10:05) Accucheck (06/11/25 12:09) Blood Culture (06/11/25 12:09) Cefepime 1gm/ 50ml (Maxipime 1gm/50ml) (06/11/25 14:00) Notify Md If Map <65 Or Bp<90 (06/11/25 12:09) If Map<65 Start Vasopressor (06/11/25 12:09) Sepsis Reassesment After Fluid (06/11/25 13:09) Cardiac Diet-2gna,Lofat,Lochol (06/11/25 Dinner) Vital Signs Date Time Temp Pulse Resp B/P (MAP) Pulse Ox O2 Delivery O2 Flow Rate FiO2 06/11/25 16:00 46 12 172/61 (98) 94 06/11/25 16:00 46 06/11/25 14:00 43 18 143/49 (80) 94 06/11/25 12:00 41 06/11/25 10:54 40 20 99 Nasal Cannula* 3 32 06/11/25 10:36 131/34 06/11/25 10:35 98.0 45 14 131/34 (66) 99 98.0 06/11/25 10:01 43 06/11/25 09:54 43 06/11/25 09:50 98.3 50 18 164/62 97 98.3 Laboratory Tests Test 06/11/25 10:25 06/11/25 12:30 White Blood Count 12.3 10^3/uL (4.4-10.8) H Lactic Acid Level 1.3 mmol/L (0.4-2.0) Medications Medications Dose Ordered Sig/Payam Route Start Time Stop Time Status Last Admin Dose Admin Cefepime HCl 50 ml @ 12.5 mls/hr DAILY IV 06/11/25 14:00 06/11/25 14:52 Furosemide 40 mg ONCE ONCE IV 06/11/25 10:15 06/11/25 10:16 DC 06/11/25 10:36 Methylprednisolone Sodium Succinate 125 mg ONCE ONCE IV 06/11/25 10:15 06/11/25 10:16 DC 06/11/25 10:36 Vancomycin HCl 200 ml @ 200 mls/hr ONCE ONCE IV 06/11/25 12:15 06/11/25 13:15 DC 06/11/25 12:21 Results Labs Test 06/11/25 17:00 06/11/25 12:30 06/11/25 11:33 06/11/25 10:25 Range/Units Urine Color Colorless Yellow Urine Clarity Clear Clear Urine pH 5.5 5.0-9.0 Urine Specific [place] 1.007 1.001-1.035 Urine Protein Negative Negative Urine Ketones Negative Negative Urine Blood Negative Negative /uL Urine Nitrite Negative Negative Urine Bilirubin Negative Negative Urine Urobilinogen Normal Negative mg/dL Urine Leukocyte Esterase Negative Negative /uL Urine RBC 1 0 - 4 /hpf Urine Microscopic WBC 2 0-5 /HPF Urine Squamous Epithelial Cells Few <5 /hpf Urine Bacteria Few H None Seen /hpf Urine Glucose Normal Normal mg/dL Lactic Acid Level 1.3 0.4-2.0 mmol/L Troponin I High Sensitivity 186 *H </=34 ng/L Sodium Level 141 136-145 mmol/L Potassium Level 4.6 3.5-5.1 mmol/L Chloride Level 106 98-107 mmol/L Carbon Dioxide Level 26 20-31 mmol/L Anion Gap 9 5-15 Blood Urea Nitrogen 44 H 9-23 mg/dL Creatinine 1.86 H 0.550-1.02 mg/dL Glomerular Filtration Rate Calc 27 >90 mL/min BUN/Creatinine Ratio 23.7 H 10.0-20.0 Serum Glucose 101 74-106 mg/dL Calcium Level 8.8 8.7-10.4 mg/dL Total Bilirubin 0.4 0.2-1.0 mg/dL Aspartate Amino Transferase (AST) 20 13-40 U/L Alanine Aminotransferase (ALT) 14 7-40 U/L Alkaline Phosphatase 75 46-116 U/L Total Protein 5.6 L 5.7-8.2 g/dL Albumin 3.9 3.2-4.8 g/dL White Blood Count 12.3 H 4.4-10.8 10^3/uL Red Blood Count 3.45 L 4.0-5.20 10^6/uL Hemoglobin 10.8 L 12.2-16.2 g/dL Hematocrit 33.1 L 36.0-46.0 % Mean Corpuscular Volume 95.8 80.0-100.0 fL Mean Corpuscular Hemoglobin 31.2 28.0-32.0 pg Mean Corpuscular Hemoglobin Concent 32.6 32.0-36.0 g/dL Red Cell Distribution Width 16.5 H 11.8-14.3 % Platelet Count 211 140-450 10^3/uL Mean Platelet Volume 10.3 6.9-10.8 fL Neutrophils (%) (Auto) 68.0 37.0-80.0 % Lymphocytes (%) (Auto) 8.6 L 10.0-50.0 % Monocytes (%) (Auto) 13.4 H 0.0-12.0 % Eosinophils (%) (Auto) 9.3 H 0.0-7.0 % Basophils (%) (Auto) 0.7 0.0-2.0 % Neutrophils # (Auto) 8.4 1.6-8.6 10 ^3/uL Lymphocytes # (Auto) 1.1 0.4-5.4 10 ^3/uL Monocytes # (Auto) 1.7 H 0-1.3 10 ^3/uL Eosinophils # (Auto) 1.2 H 0-0.8 10 ^3/uL Basophils # (Auto) 0.1 0-0.2 10 ^3/uL Nucleated Red Blood Cells 0.1 % Prothrombin Time 11.2 9.3-11.8 sec Prothrombin Time INR 1.06 0.9-1.15 Activated Partial Thromboplast Time 28.4 24.5-34.5 SEC B-Type Natriuretic Peptide 792.39 0-100 pg/mL Primary Diagnosis Shortness of breaths likely due to CHF exacerbation Leukocytosis possible pneumonia Plan IV Lasix 40 mg b.i.d. Nephrology consult DESTINEE on CKD Daily weights Fluid restriction Strict in and out Potassium greater than four, magnesium greater than two Ceftriaxone, azithromycin for possible pneumonia bcx, sputum cx Check procalcitonin Oxygen saturation goal greater than 92% Resume home meds Cardiac diet Full code Heparin for DVT prophylaxis No GI prophylaxis needed Plan discussed with: Patient Problems List: (1) CHF (congestive heart failure) Status: Acute (2) Sepsis, unspecified organism Status: Acute (3) Awece-ya-nducsdr kidney injury Status: Acute Date of Service: Jun 11, 2025 Billing Provider: MEHREEN BABCOCK MD Common Visit Codes: [id number] INP/OBS CARE (HIGH) MEHREEN BABCOCK MD Jun 11, 2025 19:40
[2025-06-11] MEDS ORDERED: ONDANSETRON HCL 4 MG/2 ML VIAL IV PRN (19:45)
[2025-06-11] MEDS ORDERED: DOCUSATE SOD 100 MG CAP PO PRN (19:45)
[2025-06-11] MEDS ORDERED: HYDROcodone-ACET 5/325MG TAB PO PRN (19:45)
[2025-06-11 20:25] VITALS: PULSE 45; RESP 20; O2SAT 100
[2025-06-11 21:18] VITALS: RESP 18; O2SAT 98
[2025-06-11] MEDS: ALBUTEROL SULF 2.5 MG/0.5ML(0.5%) NEB SOLN NEB SCH (21:18)
[2025-06-11 21:24] VITALS: PULSE 43; RESP 18; O2SAT 100
[2025-06-11] MEDS: cefTRIAXone 1GM/50ML D5W 50 ML IV SCH (23:36)
[2025-06-11] MEDS: methylPREDNISolone SOD SUCC 125 MG/2 ML VL IV SCH (23:37)
[2025-06-11] MEDS: SODIUM CHLOR 0.9% PF (SALINE LOCK) 10ML VIAL/SYR IV SCH (23:37)
[2025-06-12] VITALS (18 sets, daily range): BP systolic 128–171; BP diastolic 34–104; PULSE 40–76; RESP 16–24; TEMP 97–98.3; O2SAT 95–100
[2025-06-12] MEDS: AZITHROMYCIN 500MG/ 250ML 250 ML IV SCH (10:46)
[2025-06-12 11:00] LABS: Hematocrit 33.5 % (36.0-46.0); Hemoglobin 10.9 g/dL (12.2-16.2); Mean Corpuscular Hemoglobin 31.3 pg (28.0-32.0); Mean Corpuscular Volume 96.7 fL (80.0-100.0); Nucleated Red Blood Cells % 0.0 %
[2025-06-12 11:22] LABS: Alanine Aminotransferase 17 U/L (7-40); Albumin 4.7 g/dL (3.2-4.8); Alkaline Phosphatase 78 U/L (46-116); Anion Gap 14 (5-15); BUN/Creatinine Ratio 22.7 (10.0-20.0); Bilirubin, Total 0.4 mg/dL (0.2-1.0); Calcium 9.1 mg/dL (8.7-10.4); Carbon Dioxide 22 mmol/L (20-31); Chloride 103 mmol/L (98-107); Magnesium 2.6 mg/dL (1.6-2.6); Potassium 4.1 mmol/L (3.5-5.1); Sodium 139 mmol/L (136-145); Total Protein 7.0 g/dL (5.7-8.2)
[2025-06-12 11:33] LABS: Blood Urea Nitrogen 52 mg/dL (9-23); Glucose 247 mg/dL (74-106)
--- NOTE | 2025-06-12 13:52 | DVHPN2 ---
Subjective c/o wheezing/denies any chest pain Changes from previous H/P or p: No Changes Objective Vitals Vital Signs Date Time Temp Pulse Resp B/P (MAP) Pulse Ox O2 Delivery O2 Flow Rate FiO2 06/12/25 12:30 43 20 06/12/25 12:20 100 06/12/25 08:09 Nasal Cannula* 2 28 06/12/25 05:00 97.0 162/69 (100) 97.0 Intake/Output Intake and Output 06/12/25 07:00 Intake Total 940.0 ml Balance 940.0 ml Intake Oral 690 ml IV Total 250.0 ml # Voids 2 General Appearance: Alert, Oriented X3, Cooperative Lungs: Other (bilateral wheezing ) Cardiovascular: Regular rate, Normal S1, Normal S2 Abdomen: Normal bowel sounds, Soft, No tenderness, No hepatospenomegaly Musculoskeletal: Normal sensory function, Normal motor function Neuro: Normal speech, Strength at 5/5 X4 ext, Normal tone, Sensation intact, C ranial nerves 3-12 NL Psych/Mental Status: Mental status NL Medications Current Medications Medications Dose Ordered Sig/Payam Route Start Time Stop Time Status Last Admin Dose Admin Ceftriaxone Sodium 50 ml @ 100 mls/hr DAILY IV 06/11/25 19:45 06/12/25 10:46 100 MLS/HR Azithromycin 250 ml @ 125 mls/hr DAILY IV 06/12/25 10:00 06/12/25 10:46 125 MLS/HR Albuterol 2.5 mg Q6H NEB 06/11/25 19:45 06/12/25 12:19 2.5 MG Methylprednisolone Sodium Succinate 60 mg Q6HR IV 06/12/25 00:00 06/12/25 12:18 60 MG Sodium Chloride 10 ml Q8HR IV 06/11/25 22:00 06/12/25 06:12 10 ML Docusate Sodium 100 mg BIDPRN PRN PO 06/11/25 19:45 Acetaminophen 650 mg Q6HP PRN PO 06/11/25 19:45 Acetaminophen/ Hydrocodone Bitart 1 tab Q4HP PRN PO 06/11/25 19:45 Hold Ondansetron HCl 4 mg Q4HP PRN IV 06/11/25 19:45 Laboratory Results Laboratory Tests 06/12/25 10:29 Chemistry Test 06/12/25 10:29 Albumin 4.7 g/dL (3.2-4.8) Calcium Level 9.1 mg/dL (8.7-10.4) Magnesium Level 2.6 mg/dL (1.6-2.6) Total Protein 7.0 g/dL (5.7-8.2) LFT Test 06/12/25 10:29 Alanine Aminotransferase (ALT) 17 U/L (7-40) Alkaline Phosphatase 78 U/L (46-116) Aspartate Amino Transferase (AST) 20 U/L (13-40) Total Bilirubin 0.4 mg/dL (0.2-1.0) Urinalysis Test 06/11/25 17:00 Urine Color Colorless (Yellow) Urine Clarity Clear (Clear) Urine pH 5.5 (5.0-9.0) Urine Specific [place] 1.007 (1.001-1.035) Urine Protein Negative (Negative) Urine Ketones Negative (Negative) Urine Blood Negative /uL (Negative) Urine Nitrite Negative (Negative) Urine Bilirubin Negative (Negative) Urine Urobilinogen Normal mg/dL (Negative) Urine Leukocyte Esterase Negative /uL (Negative) Urine RBC 1 /hpf (0 - 4) Urine Microscopic WBC 2 /HPF (0-5) Urine Squamous Epithelial Cells Few /hpf (<5) Urine Bacteria Few /hpf (None Seen) H Urine Glucose Normal mg/dL (Normal) Microbiology Microbiology Date/Time Source Procedure Growth Status 06/11/25 12:30 Blood Blood Culture - Preliminary NO GROWTH AFTER 24 HOURS OF INCUBATION. Resulted Assessment/Plan Assessment/Plan chf NORMAL CORONARY ANGIOGRAM 2022 symptomatic bradycardia-called cardiology again/transfer to [facility]- asthma- but low hr does not explain- s/p avr- obesity Plan discussed with: Patient, Other My Orders Orders - ARAMIS APODACA MD Procedure Category Date Status Time * Cardiology Consult CONS 06/12/25 Transmitted 13:38 Transfer Orders XFER 06/12/25 Transmitted 13:44 Date of Service: Jun 12, 2025 Billing Provider: ARAMIS APODACA MD Common Visit Codes: [id number] INP/OBS CARE(HIGH) ARAMIS APODACA MD Jun 12, 2025 13:52
--- NOTE | 2025-06-12 14:42 | DVHSR ---
APPROVED REPORT EXAM: Two-dimensional and M-mode echocardiogram with Doppler and color Doppler. Blood Pressure: 162/69 mmHg INDICATION Elevated toponin Rule out ACS CHF exacerbation Surgery/Intervention Valve Replacement: Bioprosthetic Type: TAVR RISK FACTORS Obesity: Height: 5'2", Weight: 218 DIMENSIONS LVDd4.3 (3.8-5.7cm)LA (2D)5.4 (1.9-4.0cm)Aortic Root (2.0-3.7cm) LVDs2.9 (2.5-4.0cm)LA (MM) (1.9-4.0cm)Aortic Cusp Exc (1.5-2.0cm) EF (%) 61.0 (55-70%)Rt. Atrium4.8 (1.9-4.0cm)Asc. Aorta cm IVSd1.3 (0.7-1.1cm)RV (D) (1.8-2.4cm) PWd1.1 (0.7-1.1cm) Mitral Valve MitralMitral Stenosis E wave0.56m/sMV Mean GR.7mmHg A wave1.68m/sMV Peak GR.27mmHg E/A ratio0.32D MVAcm2 DECEL [id number] 1/2 Timems Aortic Valve Aortic ValveAortic Stenosis V11.58m/Zuleika Mean GR.9mmHg V22.00m/[place] Peak GR.16mmHg LVOT Diameter1.8 (1.8-2.4cm)Doppler AVA2.01cm2 Pulmonic Valve V21.38m/s Tricuspid Valve TR Velocity3.29m/s [id number] Other Information Technically limited study due to body habitus. Conclusion MODERATE DEGREE LVH AND MODERATE DEGREE LV DIASTOLIC DYSFUNCTION LV EF IS 65% VERY HEAVILY CALCIFIED ANTERIOR AND POSTERIOR MITRAL LEAFLETS WITH DECREASED EXCURSION CALCIFIC MITRAL STENOSIS MODERATELY DILATED LA MODERATELY DILATED RV BUT NORMAL FUNCTION RVSP IS 58 MM OF HG AND IS VERY HIGH SEVERE PULMONARY HYPERTENSION NO EFFUSION
--- NOTE | 2025-06-12 15:24 | DVHINCON2 ---
Date Seen: Jun 12, [address] 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 On presentation,12-lead ECG revealed sinus bradycardia in the 40s, and initial troponin was elevated at 180s, trending down to 150s. Blood pressure is elevated at171/69. The patient is alert and oriented and reports she followed up with her butane compressor operator, Dr Thomas, on 05/27/25. She describes an episode two days ago of chest tightness radiating to the left arm, associated with shortness of breath, which prompted her ED visit. She denies any dizziness, syncope, or palpitations. She has history of transient atrial fibrillation, diastolic heart failure, severe pulmonary hypertension, and severe aortic stenosis for which she underwent TAVR in March 2024. She is currently on Eliquis, isosorbide, furosemide, carvedilol, and atorvastatin. Prior left heart catheterization in June 2023 showed mild CAD and severe , which led to the TAVR referral. A repeat echocardiogram during this admission shows EF 65%, moderate LVH, LV diastolic dysfunction, and severe pulmonary hypertension with RVSP 58mmHg. Past Medical History As stated in HPI Past Surgical History TAVR Family History: Hypertension G8 MOTHER G8 FATHER 19 CHILD Family History Reviewed, non-contributory to the management of this case. Social History The patient lives at home, denies smoking, alcohol or illicit drugs abuse. Allergies: Coded Allergies: Acetaminophen (Verified Allergy, Unknown, 06/11/25) Hydrocodone (Verified Allergy, Unknown, 06/11/25) Tramadol (Verified Allergy, Unknown, 02/21/24) Home Meds Reported Medications Allopurinol (Allopurinol) 100 Mg Tab, 100 MG PO DAILY for 30 Days, MG 06/12/25 Pantoprazole Sodium Sesquihydr (Protonix) 40 Mg Tab, 1 TAB PO QAM for GERD 06/20/23 Aspirin (Aspirin) 81 Mg Tab, 2 TAB PO QAM for CAD 06/20/23 Furosemide (Furosemide) 20 Mg Tab, 1 TAB PO QAM for CHF 06/20/23 Carvedilol (Carvedilol) 3.125 Mg Tab, 1 TAB PO QAM for HYPERTENSION 06/20/23 Apixaban Base (ELIQUIS) 2.5 Mg Tab, 1 TAB PO BID for CAD 06/20/23 Albuterol Sulfate (Albuterol Sulfate Hfa) 108 Mcg/Act Aer, 2 PUFF IN QID PRN for SHORTNESS OF BREATH 06/20/23 Atorvastatin Calcium (ATORVASTATIN CALCIUM) 20 Mg Tab, 1 TAB PO QPM for HIGH CHOLESTEROL 02/06/23 Current Medications Current Medications Medications (Trade) Dose Ordered Sig/Payam Route PRN Reason Start Time Stop Time Status Last Admin Ceftriaxone Sodium 50 ml @ 100 mls/hr DAILY IV 06/11/25 19:45 06/12/25 10:46 Azithromycin 250 ml @ 125 mls/hr DAILY IV 06/12/25 10:00 06/12/25 10:46 Albuterol (Ventolin Medneb) 2.5 mg Q6H NEB 06/11/25 19:45 06/12/25 12:19 Methylprednisolone Sodium Succinate (Solu Medrol) 60 mg Q6HR IV 06/12/25 00:00 06/12/25 12:18 Sodium Chloride (Saline Lock Ns) 10 ml Q8HR IV 06/11/25 22:00 06/12/25 14:34 Docusate Sodium (Colace Capsule) 100 mg BIDPRN PRN PO FOR CONSTIPATION 06/11/25 19:45 Acetaminophen (Tylenol Tablet) 650 mg Q6HP PRN PO PAIN SCALE 1-3 OR TEMP>100.4 06/11/25 19:45 Acetaminophen/ Hydrocodone Bitart ([place] 5/325MG Tab) 1 tab Q4HP PRN PO MODERATE PAIN (4-6 PAIN SCALE) 06/11/25 19:45 Hold Ondansetron HCl (Zofran) 4 mg Q4HP PRN IV NAUSEA / VOMITING 06/11/25 19:45 Review of Systems Constitutional: No symptom reported Ears, Nose, & Throat: No symptom reported Eyes: No symptom reported Neurological: No symptoms reported Pulmonary/Respiratory: No symptom reported Cardiovascular: Chest pain, shortness of breath Gastrointestinal: No symptom reported Genitourinary: No symptom reported Musculoskeletal: No symptom reported Skin: No symptom reported Psychiatric: No symptom reported Endocrine: No symptom reported Hematologic/Lymphatic: No symptom reported Vital Signs Vital Signs Date Time Temp Pulse Resp B/P (MAP) Pulse Ox O2 Delivery O2 Flow Rate FiO2 8/2/25 13:00 97.9 46 20 171/69 (103) 96 97.9 06/12/25 08:09 Nasal Cannula* 2 28 Physical Exam INITIAL VITAL SIGNS: Reviewed by me GENERAL: Alert and interactive. No acute distress. HEAD: Head is normocephalic and atraumatic. EYES: EOMI, PERRL. No scleral icterus. No conjunctival injection. ENT: Moist mucous membranes. NECK: Supple, No masses, Full range of motion. RESPIRATORY: No tachypnea. Clear breath sounds bilaterally. No wheezing, rales, rhonchi. CV: Bradycardic, regular rhythm, no murmur GI/: Active bowel sounds, soft, nondistended, nontender. No guarding. No rebound. No masses. No CVA tenderness. INTEGUMENTARY: Warm and dry. No obvious rashes. NEUROLOGIC: Alert and oriented. Face is symmetric. Speech is normal. Moves all extremities equally. Labs/Diagnostic Data Labs Test 06/12/25 10:29 06/11/25 17:00 06/11/25 12:30 06/11/25 10:25 Range/Units White Blood Count 13.7 H 4.4-10.8 10^3/uL Red Blood Count 3.47 L 4.0-5.20 10^6/uL Hemoglobin 10.9 L 12.2-16.2 g/dL Hematocrit 33.5 L 36.0-46.0 % Mean Corpuscular Volume 96.7 80.0-100.0 fL Mean Corpuscular Hemoglobin 31.3 28.0-32.0 pg Mean Corpuscular Hemoglobin Concent 32.4 32.0-36.0 g/dL Red Cell Distribution Width 16.7 H 11.8-14.3 % Platelet Count 220 140-450 10^3/uL Mean Platelet Volume 10.3 6.9-10.8 fL Neutrophils (%) (Auto) 95.9 H 37.0-80.0 % Lymphocytes (%) (Auto) 2.6 L 10.0-50.0 % Monocytes (%) (Auto) 1.4 0.0-12.0 % Eosinophils (%) (Auto) 0.0 0.0-7.0 % Basophils (%) (Auto) 0.1 0.0-2.0 % Neutrophils # (Auto) 13.1 H 1.6-8.6 10 ^3/uL Lymphocytes # (Auto) 0.3 L 0.4-5.4 10 ^3/uL Monocytes # (Auto) 0.2 0-1.3 10 ^3/uL Eosinophils # (Auto) 0 0-0.8 10 ^3/uL Basophils # (Auto) 0 0-0.2 10 ^3/uL Nucleated Red Blood Cells 0.0 % Platelet Estimate Adequate Sodium Level 139 136-145 mmol/L Potassium Level 4.1 3.5-5.1 mmol/L Chloride Level 103 98-107 mmol/L Carbon Dioxide Level 22 20-31 mmol/L Anion Gap 14 5-15 Blood Urea Nitrogen 52 H 9-23 mg/dL Creatinine 2.29 H 0.550-1.02 mg/dL Glomerular Filtration Rate Calc 21 >90 mL/min BUN/Creatinine Ratio 22.7 H 10.0-20.0 Serum Glucose 247 H 74-106 mg/dL Calcium Level 9.1 8.7-10.4 mg/dL Magnesium Level 2.6 1.6-2.6 mg/dL Total Bilirubin 0.4 0.2-1.0 mg/dL Aspartate Amino Transferase (AST) 20 13-40 U/L Alanine Aminotransferase (ALT) 17 7-40 U/L Alkaline Phosphatase 78 46-116 U/L Troponin I High Sensitivity 152 *H </=34 ng/L Total Protein 7.0 5.7-8.2 g/dL Albumin 4.7 3.2-4.8 g/dL Urine Color Colorless Yellow Urine Clarity Clear Clear Urine pH 5.5 5.0-9.0 Urine Specific [place] 1.007 1.001-1.035 Urine Protein Negative Negative Urine Ketones Negative Negative Urine Blood Negative Negative /uL Urine Nitrite Negative Negative Urine Bilirubin Negative Negative Urine Urobilinogen Normal Negative mg/dL Urine Leukocyte Esterase Negative Negative /uL Urine RBC 1 0 - 4 /hpf Urine Microscopic WBC 2 0-5 /HPF Urine Squamous Epithelial Cells Few <5 /hpf Urine Bacteria Few H None Seen /hpf Urine Glucose Normal Normal mg/dL Lactic Acid Level 1.3 0.4-2.0 mmol/L Prothrombin Time 11.2 9.3-11.8 sec Prothrombin Time INR 1.06 0.9-1.15 Activated Partial Thromboplast Time 28.4 24.5-34.5 SEC B-Type Natriuretic Peptide 792.39 0-100 pg/mL Microbiology Date/Time Source Procedure Growth Status 06/11/25 12:30 Blood Blood Culture - Preliminary NO GROWTH AFTER 24 HOURS OF INCUBATION. Resulted PROCEDURE(s): CXRP - CHEST PORTABLE REASON: sob ORDER NUMBER(s): [id number], ACCESSION NUMBER(s): [id number] EXAM: XY CHEST PORTABLE Indication: sob Technique: Single frontal view of the chest was obtained Comparison: XY CHEST PORTABLE on DOS: 02/27/24, XY CHEST PORTABLE on DOS: 02/21/24, US CHEST ULTRASOUND on DOS: 02/11/23, CT CHEST WITHOUT CONTRAST on DOS: 02/11/23, XY CHEST PORTABLE on DOS: 02/10/23 FINDINGS: Lines and Tubes: None Lungs: No focal consolidation. Pleura: No effusion. No pneumothorax. Cardiomediastinal contours: Unremarkable Bones: No acute osseous abnormality. IMPRESSION: No acute cardiopulmonary disease. Assessment NSTEMI Symptomatic bradycardia Transient AFib on anticoagulation Acute on chronic diastolic HF (HFpEF) Severe pulmonary hypertension Severe aortic stenosis, s/p TAVR Hypertension COPD Obesity Plan/Recommendation (Dr. Ayala ): Troponins are down trending from 180s -150s. Current echocardiogram shows preserved EF (65%) , moderate LVH, diastolic dysfunction and severe pulmonary hypertension (RVSP 58 mmHg). Given symptomatic bradycardia, carvedilol is held at this time. Due to worsening renal function, SALONI inhibitors and arbs are avoided. The patient remains hypertensive, and for afterload reduction and BP control, we will continue isosorbide mononitrate 60 daily, initiate amlodipine 5 mg daily, and start hydralazine 25 mg b.i.d. Furosemide 20 mg daily will be continued for volume management, with monitoring of renal function and electrolytes. We will continue to monitor rate, rhythm, BP, and renal function closely. This medical document was created using an electronic medical record system with voice recognition software and computerized dictation system. Although this document has been carefully reviewed, there might still be some phonetic and typographical errors. Occasional wrong-word or ``sound-alike substitutions may have occurred due to the inherent limitations of voice recognition software. These areas are purely typographical due to imperfections of the software programs and do not reflect any compromise in the patient's medical care. Please read the chart carefully and recognize, using context, where these substitutions have occurred. Plan discussed with: Patient Symptomatic bradycardia and elevated BP Plan discussed with: Patient NYHA Physical activity limitations: Class2(Slight)fatigue,sob Date of Service: Jun 12, 2025 Billing Provider: CHELY AYALA MD Cardiology Common Codes: CONSULT ONLY Cardiology Consultation Codes: 67561-[id number] CONSULT <45MIN WILIAN CLAYTON [facility] Jun 12, 2025 15:24
[2025-06-12] MEDS ORDERED: hydrALAZINE HCL 20 MG/ML VL IV PRN (15:30)
[2025-06-12] MEDS: ENOXAPARIN SOD 30 MG/0.3 ML SYRINGE SC ONE (18:06)
--- NOTE | 2025-06-12 23:41 | DVHINCON2 ---
Date Seen: Jun 12, [address] 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 On presentation,12-lead ECG revealed sinus bradycardia in the 40s, and initial troponin was elevated at 180s, trending down to 150s. Blood pressure is elevated at171/69. Patient is alert and oriented and reports she followed up with her certified midwife, Dr Thomas, on 05/27/25. Patient describes an episode two days ago of chest tightness radiating to the left arm, associated with shortness of breath, which prompted her ED visit. Patient denies any dizziness, syncope, or palpitations. Patient has history of transient atrial fibrillation, diastolic heart failure, severe pulmonary hypertension, and severe aortic stenosis for which she underwent TAVR in March 2024. She is currently on Eliquis, isosorbide, furosemide, carvedilol, and atorvastatin. Prior left heart catheterization in June 2023 showed mild CAD and severe , which led to the TAVR referral. A repeat echocardiogram during this admission shows EF 65%, moderate LVH, LV diastolic dysfunction, and severe pulmonary hypertension with RVSP 58mmHg. Chest x-ray shows NAD. Patient was admitted to the hospital. I am asked to consult on this patient. Past Medical History As stated in HPI Past Surgical History TAVR Family History: Hypertension G8 MOTHER G8 FATHER 19 CHILD Allergies: Coded Allergies: Acetaminophen (Verified Allergy, Unknown, 06/11/25) Hydrocodone (Verified Allergy, Unknown, 06/11/25) Tramadol (Verified Allergy, Unknown, 02/21/24) Home Meds Reported Medications Allopurinol (Allopurinol) 100 Mg Tab, 100 MG PO DAILY for 30 Days, MG 06/12/25 Pantoprazole Sodium Sesquihydr (Protonix) 40 Mg Tab, 1 TAB PO QAM for GERD 06/20/23 Aspirin (Aspirin) 81 Mg Tab, 2 TAB PO QAM for CAD 06/20/23 Furosemide (Furosemide) 20 Mg Tab, 1 TAB PO QAM for CHF 06/20/23 Carvedilol (Carvedilol) 3.125 Mg Tab, 1 TAB PO QAM for HYPERTENSION 06/20/23 Apixaban Base (ELIQUIS) 2.5 Mg Tab, 1 TAB PO BID for CAD 06/20/23 Albuterol Sulfate (Albuterol Sulfate Hfa) 108 Mcg/Act Aer, 2 PUFF IN QID PRN for SHORTNESS OF BREATH 06/20/23 Atorvastatin Calcium (ATORVASTATIN CALCIUM) 20 Mg Tab, 1 TAB PO QPM for HIGH CHOLESTEROL 02/06/23 Current Medications Current Medications Medications (Trade) Dose Ordered Sig/Payam Route PRN Reason Start Time Stop Time Status Last Admin Azithromycin 250 ml @ 125 mls/hr DAILY IV 06/12/25 10:00 06/12/25 10:46 Methylprednisolone Sodium Succinate (Solu Medrol) 60 mg Q6HR IV 06/12/25 00:00 06/12/25 18:05 Hydralazine HCl (Apresoline Injection) 10 mg Q6HP PRN IV SBP>150 06/12/25 15:30 Hydralazine HCl (Apresoline Tablet) 25 mg BID PO 06/12/25 22:00 06/12/25 21:18 Amlodipine Besylate (Norvasc Tablet) 5 mg DAILY PO 06/13/25 10:00 Isosorbide Mononitrate (Imdur Er Tablet) 60 mg DAILY PO 06/13/25 10:00 Enoxaparin Sodium (Lovenox) 30 mg DAILY SC 06/13/25 10:00 06/12/25 17:19 DC Enoxaparin Sodium (Lovenox) 30 mg DAILY SC 06/13/25 10:00 Review of Systems Constitutional: No symptom reported Ears, Nose, & Throat: No symptom reported Eyes: No symptom reported Neurological: No symptoms reported Pulmonary/Respiratory: No symptom reported Cardiovascular: Chest pain, shortness of breath Gastrointestinal: No symptom reported Genitourinary: No symptom reported Musculoskeletal: No symptom reported Skin: No symptom reported Psychiatric: No symptom reported Endocrine: No symptom reported Hematologic/Lymphatic: No symptom reported Vital Signs Vital Signs Date Time Temp Pulse Resp B/P (MAP) Pulse Ox O2 Delivery O2 Flow Rate FiO2 06/12/25 21:18 140/69 06/12/25 21:00 97.7 45 19 98 97.7 06/12/25 20:20 Nasal Cannula* 3 32 Physical Exam GENERAL: Alert and oriented x 3. No acute distress. EYES: PERRL, EOMI. Anicteric. HENT: Moist mucous membranes. LUNGS: Clear to auscultation bilaterally. CARDIOVASCULAR: Regular rate and rhythm. ABDOMEN: Soft, nontender and nondistended. EXTREMITIES: No edema. NEUROLOGIC: No focal neurological deficits. SKIN: Warm, dry. Labs/Diagnostic Data Labs Test 06/12/25 17:58 06/12/25 10:29 06/11/25 17:00 06/11/25 12:30 Range/Units Troponin I High Sensitivity 168 *H </=34 ng/L White Blood Count 13.7 H 4.4-10.8 10^3/uL Red Blood Count 3.47 L 4.0-5.20 10^6/uL Hemoglobin 10.9 L 12.2-16.2 g/dL Hematocrit 33.5 L 36.0-46.0 % Mean Corpuscular Volume 96.7 80.0-100.0 fL Mean Corpuscular Hemoglobin 31.3 28.0-32.0 pg Mean Corpuscular Hemoglobin Concent 32.4 32.0-36.0 g/dL Red Cell Distribution Width 16.7 H 11.8-14.3 % Platelet Count 220 140-450 10^3/uL Mean Platelet Volume 10.3 6.9-10.8 fL Neutrophils (%) (Auto) 95.9 H 37.0-80.0 % Lymphocytes (%) (Auto) 2.6 L 10.0-50.0 % Monocytes (%) (Auto) 1.4 0.0-12.0 % Eosinophils (%) (Auto) 0.0 0.0-7.0 % Basophils (%) (Auto) 0.1 0.0-2.0 % Neutrophils # (Auto) 13.1 H 1.6-8.6 10 ^3/uL Lymphocytes # (Auto) 0.3 L 0.4-5.4 10 ^3/uL Monocytes # (Auto) 0.2 0-1.3 10 ^3/uL Eosinophils # (Auto) 0 0-0.8 10 ^3/uL Basophils # (Auto) 0 0-0.2 10 ^3/uL Nucleated Red Blood Cells 0.0 % Platelet Estimate Adequate Sodium Level 139 136-145 mmol/L Potassium Level 4.1 3.5-5.1 mmol/L Chloride Level 103 98-107 mmol/L Carbon Dioxide Level 22 20-31 mmol/L Anion Gap 14 5-15 Blood Urea Nitrogen 52 H 9-23 mg/dL Creatinine 2.29 H 0.550-1.02 mg/dL Glomerular Filtration Rate Calc 21 >90 mL/min BUN/Creatinine Ratio 22.7 H 10.0-20.0 Serum Glucose 247 H 74-106 mg/dL Calcium Level 9.1 8.7-10.4 mg/dL Magnesium Level 2.6 1.6-2.6 mg/dL Total Bilirubin 0.4 0.2-1.0 mg/dL Aspartate Amino Transferase (AST) 20 13-40 U/L Alanine Aminotransferase (ALT) 17 7-40 U/L Alkaline Phosphatase 78 46-116 U/L Total Protein 7.0 5.7-8.2 g/dL Albumin 4.7 3.2-4.8 g/dL Urine Color Colorless Yellow Urine Clarity Clear Clear Urine pH 5.5 5.0-9.0 Urine Specific [place] 1.007 1.001-1.035 Urine Protein Negative Negative Urine Ketones Negative Negative Urine Blood Negative Negative /uL Urine Nitrite Negative Negative Urine Bilirubin Negative Negative Urine Urobilinogen Normal Negative mg/dL Urine Leukocyte Esterase Negative Negative /uL Urine RBC 1 0 - 4 /hpf Urine Microscopic WBC 2 0-5 /HPF Urine Squamous Epithelial Cells Few <5 /hpf Urine Bacteria Few H None Seen /hpf Urine Glucose Normal Normal mg/dL Lactic Acid Level 1.3 0.4-2.0 mmol/L Test 06/11/25 10:25 Range/Units Prothrombin Time 11.2 9.3-11.8 sec Prothrombin Time INR 1.06 0.9-1.15 Activated Partial Thromboplast Time 28.4 24.5-34.5 SEC B-Type Natriuretic Peptide 792.39 0-100 pg/mL Microbiology Date/Time Source Procedure Growth Status 06/11/25 12:30 Blood Blood Culture - Preliminary NO GROWTH AFTER 24 HOURS OF INCUBATION. Resulted Assessment NSTEMI. Symptomatic bradycardia. Transient AFib on anticoagulation. Acute on chronic diastolic HF (HFpEF). Severe pulmonary hypertension. Severe aortic stenosis, s/p TAVR. Hypertension. COPD. Obesity. Plan/Recommendation I agree with your ongoing assessment and care of plan. Patient has been seen by Janie Adams NP on my behalf, her and I discussed the plan with the patient. Troponins are down trending from 180s -150s. Current echocardiogram shows preserved EF (65%) , moderate LVH, diastolic dysfunction and severe pulmonary hypertension (RVSP 58 mmHg). Given symptomatic bradycardia, carvedilol is held at this time. Due to worsening renal function, SALONI inhibitors and arbs are avoided. The patient remains hypertensive, and for afterload reduction and BP control, we will continue isosorbide mononitrate 60 daily, initiate amlodipine 5 mg daily, and start hydralazine 25 mg b.i.d. Furosemide 20 mg daily will be continued for volume management, with monitoring of renal function and electrolytes. We will continue to monitor rate, rhythm, BP, and renal function closely. Additional plan as per the hospital course. Plan discussed with: Patient NYHA Physical activity limitations: Class2(Slight)fatigue,sob Date of Service: Jun 12, 2025 Billing Provider: CHELY SUMNER MD Cardiology Common Codes: 13342-[id number] INP/OBS CARE (High) Cardiology Consultation Codes: [id number] CONSULT <45MIN CHELY SUMNER MD Jun 12, 2025 22:18
[2025-06-13] VITALS (18 sets, daily range): BP systolic 113–144; BP diastolic 34–57; PULSE 4–48; RESP 15–20; TEMP 96.1–98.4; O2SAT 96–100
[2025-06-13 07:27] LABS: Hematocrit 31.6 % (36.0-46.0); Hemoglobin 10.6 g/dL (12.2-16.2); Mean Corpuscular Hemoglobin 31.7 pg (28.0-32.0); Mean Corpuscular Volume 94.7 fL (80.0-100.0); Nucleated Red Blood Cells % 0.1 %
[2025-06-13 07:28] LABS: Albumin 4.3 g/dL (3.2-4.8); Alkaline Phosphatase 74 U/L (46-116); Anion Gap 14 (5-15); BUN/Creatinine Ratio 27.0 (10.0-20.0); Calcium 9.0 mg/dL (8.7-10.4); Carbon Dioxide 21 mmol/L (20-31); Chloride 102 mmol/L (98-107); Potassium 4.2 mmol/L (3.5-5.1); Sodium 137 mmol/L (136-145); Total Protein 6.4 g/dL (5.7-8.2)
[2025-06-13 07:29] LABS: Bilirubin, Total 0.3 mg/dL (0.2-1.0)
[2025-06-13 07:34] LABS: Alanine Aminotransferase 42 U/L (7-40); Blood Urea Nitrogen 65 mg/dL (9-23); Glucose 182 mg/dL (74-106); Magnesium 2.8 mg/dL (1.6-2.6)
[2025-06-13] MEDS: FUROSEMIDE 20 MG/2 ML VIAL IV SCH (08:54)
[2025-06-13] MEDS: ENOXAPARIN SOD 30 MG/0.3 ML SYRINGE SC SCH (08:55)
[2025-06-13] MEDS: ISOSORBIDE MONONITRATE ER 60 MG TAB PO SCH (08:55)
[2025-06-13] MEDS ORDERED: ENOXAPARIN SOD 30 MG/0.3 ML SYRINGE SC SCH (10:00)
--- NOTE | 2025-06-13 15:48 | DVHPN2 ---
Subjective No cardiac events reported Denies chest pain, dizziness or syncope Reviewed: Care Plan Changes from previous H/P or p: No Changes Objective Vitals Vital Signs Date Time Temp Pulse Resp B/P (MAP) Pulse Ox O2 Delivery O2 Flow Rate FiO2 06/13/25 13:00 97.2 46 20 118/57 (77) 97 97.2 06/13/25 11:41 Nasal Cannula 3.0 06/13/25 11:41 32 Intake/Output Intake and Output 06/13/25 07:00 Intake Total 1980 ml Balance 1980 ml Intake Oral 1630 ml IV Total 350 ml # Voids 7 General Appearance: Alert, Oriented X3, Cooperative Lungs: Other (bilateral wheezing ) Cardiovascular: Regular rate, Normal S1, Normal S2 Abdomen: Normal bowel sounds, Soft, No tenderness, No hepatospenomegaly Musculoskeletal: Normal sensory function, Normal motor function Neuro: Normal speech, Strength at 5/5 X4 ext, Normal tone, Sensation intact, C ranial nerves 3-12 NL Psych/Mental Status: Mental status NL Medications Current Medications Medications Dose Ordered Sig/Payam Route Start Time Stop Time Status Last Admin Dose Admin Ceftriaxone Sodium 50 ml @ 100 mls/hr DAILY IV 06/11/25 19:45 06/13/25 08:56 100 MLS/HR Azithromycin 250 ml @ 125 mls/hr DAILY IV 06/12/25 10:00 06/13/25 11:30 125 MLS/HR Albuterol 2.5 mg Q6H NEB 06/11/25 19:45 06/13/25 11:41 2.5 MG Methylprednisolone Sodium Succinate 60 mg Q6HR IV 06/12/25 00:00 06/13/25 11:30 60 MG Sodium Chloride 10 ml Q8HR IV 06/11/25 22:00 06/13/25 14:00 10 ML Docusate Sodium 100 mg BIDPRN PRN PO 06/11/25 19:45 Acetaminophen 650 mg Q6HP PRN PO 06/11/25 19:45 Acetaminophen/ Hydrocodone Bitart 1 tab Q4HP PRN PO 06/11/25 19:45 Hold Ondansetron HCl 4 mg Q4HP PRN IV 06/11/25 19:45 Hydralazine HCl 10 mg Q6HP PRN IV 06/12/25 15:30 Hydralazine HCl 25 mg BID PO 06/12/25 22:00 8/2/25 21:18 25 MG Amlodipine Besylate 5 mg DAILY PO 06/13/25 10:00 Isosorbide Mononitrate 60 mg DAILY PO 06/13/25 10:00 06/13/25 08:55 60 MG Enoxaparin Sodium 30 mg DAILY SC 06/13/25 10:00 06/13/25 08:55 30 MG Furosemide 20 mg DAILY IV 06/13/25 10:00 06/13/25 08:54 20 MG Laboratory Results Laboratory Tests 06/13/25 06:42 Chemistry Test 06/13/25 06:42 Albumin 4.3 g/dL (3.2-4.8) Calcium Level 9.0 mg/dL (8.7-10.4) Magnesium Level 2.8 mg/dL (1.6-2.6) H Total Protein 6.4 g/dL (5.7-8.2) Cardiac Markers Test 06/13/25 06:42 B-Type Natriuretic Peptide 1267.22 pg/mL (0-100) LFT Test 06/13/25 06:42 Alanine Aminotransferase (ALT) 42 U/L (7-40) H Alkaline Phosphatase 74 U/L (46-116) Aspartate Amino Transferase (AST) 35 U/L (13-40) Total Bilirubin 0.3 mg/dL (0.2-1.0) HgA1c, TSH Test 06/13/25 06:42 Thyroid Stimulating Hormone (TSH) 0.29 uIU/mL (0.55-4.78) L Urinalysis Test 06/11/25 17:00 Urine Color Colorless (Yellow) Urine Clarity Clear (Clear) Urine pH 5.5 (5.0-9.0) Urine Specific [place] 1.007 (1.001-1.035) Urine Protein Negative (Negative) Urine Ketones Negative (Negative) Urine Blood Negative /uL (Negative) Urine Nitrite Negative (Negative) Urine Bilirubin Negative (Negative) Urine Urobilinogen Normal mg/dL (Negative) Urine Leukocyte Esterase Negative /uL (Negative) Urine RBC 1 /hpf (0 - 4) Urine Microscopic WBC 2 /HPF (0-5) Urine Squamous Epithelial Cells Few /hpf (<5) Urine Bacteria Few /hpf (None Seen) H Urine Glucose Normal mg/dL (Normal) Microbiology Microbiology Date/Time Source Procedure Growth Status 06/11/25 12:30 Blood Blood Culture - Preliminary NO GROWTH AFTER 48 HOURS OF INCUBATION. Resulted Assessment/Plan Assessment/Plan Assessment NSTEMI Symptomatic bradycardia Transient AFib on anticoagulation Acute on chronic diastolic HF (HFpEF) Severe pulmonary hypertension Severe aortic stenosis, s/p TAVR Hypertension COPD Obesity Plan/Recommendation (Dr. Torre ): 06/13/25 - continue with O2 supplement, telemetry monitoring, avoid AV loi agents. Close cardiac surveillance. Cardiology to continue to follow. Troponins are down trending from 180s -150s. Current echocardiogram shows preserved EF (65%) , moderate LVH, diastolic dysfunction and severe pulmonary hypertension (RVSP 58 mmHg). Given symptomatic bradycardia, carvedilol is held at this time. Due to worsening renal function, SALONI inhibitors and arbs are avoided. The patient remains hypertensive, and for afterload reduction and BP control, we will continue isosorbide mononitrate 60 daily, initiate amlodipine 5 mg daily, and start hydralazine 25 mg b.i.d. Furosemide 20 mg daily will be continued for volume management, with monitoring of renal function and electrolytes. We will continue to monitor rate, rhythm, BP, and renal function closely. This medical document was created using an electronic medical record system with voice recognition software and computerized dictation system. Although this document has been carefully reviewed, there might still be some phonetic and typographical errors. Occasional wrong-word or ``sound-alike substitutions may have occurred due to the inherent limitations of voice recognition software. These areas are purely typographical due to imperfections of the software programs and do not reflect any compromise in the patient's medical care. Please read the chart carefully and recognize, using context, where these substitutions have occurred. Plan discussed with: Patient Symptomatic bradycardia and elevated BP Plan discussed with: Patient NYHA Plan discussed with: Patient My Orders Orders - WILIAN CLAYTON [employer]NA[employer] Procedure Category Date Status Time Hydralazine Hcl PHA 06/12/25 In Process Tablet (Apresoline 22:00 Amlodipine Tablet PHA 06/13/25 In Process (Norvasc Tablet) 10:00 Isosorbide PHA 06/13/25 In Process Mononitrate Tablet 10:00 Electrocardigram EKG 06/13/25 Logged 04:00 Date of Service: Jun 13, 2025 Billing Provider: JENN TORRE MD Common Visit Codes: CONSULT ONLY Consultation Codes: [id number] CONSULT <45MIN WILIAN CLAYTON [facility] Jun 13, 2025 15:48
--- NOTE | 2025-06-13 15:54 | DVHPN2 ---
Subjective c/o wheezing/denies any chest pain Reviewed: Care Plan Changes from previous H/P or p: No Changes Objective Vitals Vital Signs Date Time Temp Pulse Resp B/P (MAP) Pulse Ox O2 Delivery O2 Flow Rate FiO2 06/13/25 13:00 97.2 46 20 118/57 (77) 97 97.2 06/13/25 11:41 Nasal Cannula 3.0 06/13/25 11:41 32 Intake/Output Intake and Output 06/13/25 07:00 Intake Total 1980 ml Balance 1980 ml Intake Oral 1630 ml IV Total 350 ml # Voids 7 General Appearance: Alert, Oriented X3, Cooperative Lungs: Other (bilateral wheezing ) Cardiovascular: Regular rate, Normal S1, Normal S2 Abdomen: Normal bowel sounds, Soft, No tenderness, No hepatospenomegaly Musculoskeletal: Normal sensory function, Normal motor function Neuro: Normal speech, Strength at 5/5 X4 ext, Normal tone, Sensation intact, C ranial nerves 3-12 NL Psych/Mental Status: Mental status NL Medications Current Medications Medications Dose Ordered Sig/Payam Route Start Time Stop Time Status Last Admin Dose Admin Ceftriaxone Sodium 50 ml @ 100 mls/hr DAILY IV 06/11/25 19:45 06/13/25 08:56 100 MLS/HR Azithromycin 250 ml @ 125 mls/hr DAILY IV 06/12/25 10:00 06/13/25 11:30 125 MLS/HR Albuterol 2.5 mg Q6H NEB 06/11/25 19:45 06/13/25 11:41 2.5 MG Methylprednisolone Sodium Succinate 60 mg Q6HR IV 06/12/25 00:00 06/13/25 11:30 60 MG Sodium Chloride 10 ml Q8HR IV 06/11/25 22:00 06/13/25 14:00 10 ML Docusate Sodium 100 mg BIDPRN PRN PO 06/11/25 19:45 Acetaminophen 650 mg Q6HP PRN PO 06/11/25 19:45 Acetaminophen/ Hydrocodone Bitart 1 tab Q4HP PRN PO 06/11/25 19:45 Hold Ondansetron HCl 4 mg Q4HP PRN IV 06/11/25 19:45 Hydralazine HCl 10 mg Q6HP PRN IV 06/12/25 15:30 Hydralazine HCl 25 mg BID PO 06/12/25 22:00 06/12/25 21:18 25 MG Amlodipine Besylate 5 mg DAILY PO 06/13/25 10:00 Isosorbide Mononitrate 60 mg DAILY PO 06/13/25 10:00 06/13/25 08:55 60 MG Enoxaparin Sodium 30 mg DAILY SC 06/13/25 10:00 06/13/25 08:55 30 MG Furosemide 20 mg DAILY IV 06/13/25 10:00 06/13/25 08:54 20 MG Laboratory Results Laboratory Tests 06/13/25 06:42 Chemistry Test 06/13/25 06:42 Albumin 4.3 g/dL (3.2-4.8) Calcium Level 9.0 mg/dL (8.7-10.4) Magnesium Level 2.8 mg/dL (1.6-2.6) H Total Protein 6.4 g/dL (5.7-8.2) Cardiac Markers Test 06/13/25 06:42 B-Type Natriuretic Peptide 1267.22 pg/mL (0-100) LFT Test 06/13/25 06:42 Alanine Aminotransferase (ALT) 42 U/L (7-40) H Alkaline Phosphatase 74 U/L (46-116) Aspartate Amino Transferase (AST) 35 U/L (13-40) Total Bilirubin 0.3 mg/dL (0.2-1.0) HgA1c, TSH Test 06/13/25 06:42 Thyroid Stimulating Hormone (TSH) 0.29 uIU/mL (0.55-4.78) L Urinalysis Test 06/11/25 17:00 Urine Color Colorless (Yellow) Urine Clarity Clear (Clear) Urine pH 5.5 (5.0-9.0) Urine Specific [place] 1.007 (1.001-1.035) Urine Protein Negative (Negative) Urine Ketones Negative (Negative) Urine Blood Negative /uL (Negative) Urine Nitrite Negative (Negative) Urine Bilirubin Negative (Negative) Urine Urobilinogen Normal mg/dL (Negative) Urine Leukocyte Esterase Negative /uL (Negative) Urine RBC 1 /hpf (0 - 4) Urine Microscopic WBC 2 /HPF (0-5) Urine Squamous Epithelial Cells Few /hpf (<5) Urine Bacteria Few /hpf (None Seen) H Urine Glucose Normal mg/dL (Normal) Microbiology Microbiology Date/Time Source Procedure Growth Status 06/11/25 12:30 Blood Blood Culture - Preliminary NO GROWTH AFTER 48 HOURS OF INCUBATION. 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 Moreno Critical CONS 06/12/25 Transmitted Care 17:15 Enoxaparin Sodium PHA 06/13/25 In Process (Lovenox) 10:00 Date of Service: Jun 13, 2025 Billing Provider: ARAMIS APODACA MD Common Visit Codes: [id number] INP/OBS CARE(HIGH) ARAMIS APODACA MD Jun 13, 2025 15:54
[2025-06-13] MEDS: FUROSEMIDE 20 MG/2 ML VIAL IV ONE (16:12)
[2025-06-14] VITALS (15 sets, daily range): BP systolic 124–155; BP diastolic 40–67; PULSE 39–47; RESP 15–20; TEMP 97.7–98.6; O2SAT 94–100
[2025-06-14 10:50] LABS: Hematocrit 31.2 % (36.0-46.0); Hemoglobin 10.2 g/dL (12.2-16.2); Mean Corpuscular Hemoglobin 31.1 pg (28.0-32.0); Mean Corpuscular Volume 95.1 fL (80.0-100.0); Nucleated Red Blood Cells % 0.1 %
[2025-06-14 10:51] LABS: Alanine Aminotransferase 39 U/L (7-40); Albumin 4.3 g/dL (3.2-4.8); Alkaline Phosphatase 68 U/L (46-116); Anion Gap 13 (5-15); BUN/Creatinine Ratio 31.1 (10.0-20.0); Carbon Dioxide 23 mmol/L (20-31); Chloride 101 mmol/L (98-107); Potassium 4.2 mmol/L (3.5-5.1); Sodium 137 mmol/L (136-145); Total Protein 6.3 g/dL (5.7-8.2)
[2025-06-14 10:52] LABS: Bilirubin, Total 0.3 mg/dL (0.2-1.0)
[2025-06-14 10:55] LABS: Blood Urea Nitrogen 79 mg/dL (9-23); Calcium 8.5 mg/dL (8.7-10.4); Glucose 307 mg/dL (74-106); Magnesium 2.9 mg/dL (1.6-2.6)
--- NOTE | 2025-06-14 12:01 | ECG ---
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
--- NOTE | 2025-06-14 12:26 | ECG ---
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
--- NOTE | 2025-06-14 12:27 | DVHPN2 ---
Progress Note Date Seen: Jun 14, 2025 Medical Necessity Reason Pt with a Central, PICC or Fol: No Subjective Patient reports: No new complaints Review of Systems: HEENT:Normal, CVS:Normal, RESPIRATORY:Normal, GI:Normal, :Normal, MSK:Normal, NEURO:Normal Objective vital signs Vital Sign Date Time Temp Pulse Resp B/P (MAP) Pulse Ox O2 Delivery O2 Flow Rate FiO2 06/14/25 11:57 45 19 99 06/14/25 11:51 Nasal Cannula 3.0 06/14/25 11:51 32 06/14/25 10:31 140/72 06/14/25 09:00 98.3 98.3 Total Intake and Output 06/13/25 06/13/25 06/14/25 15:00 23:00 07:00 Intake Total 536 ml 466 ml 595 ml Output Total 700 ml 350 ml Balance 536 ml -234 ml 245 ml medications Current Medications Medications Dose Ordered Sig/Payam Route Start Time Stop Time Status Last Admin Dose Admin Ceftriaxone Sodium 50 ml @ 100 mls/hr DAILY IV 06/11/25 19:45 06/14/25 09:04 100 MLS/HR Azithromycin 250 ml @ 125 mls/hr DAILY IV 06/12/25 10:00 06/14/25 10:28 125 MLS/HR Albuterol 2.5 mg Q6H NEB 06/11/25 19:45 06/14/25 11:51 2.5 MG Methylprednisolone Sodium Succinate 60 mg Q6HR IV 06/12/25 00:00 06/14/25 11:44 60 MG Sodium Chloride 10 ml Q8HR IV 06/11/25 22:00 06/14/25 05:06 10 ML Docusate Sodium 100 mg BIDPRN PRN PO 06/11/25 19:45 Acetaminophen 650 mg Q6HP PRN PO 06/11/25 19:45 Acetaminophen/ Hydrocodone Bitart 1 tab Q4HP PRN PO 06/11/25 19:45 Hold Ondansetron HCl 4 mg Q4HP PRN IV 06/11/25 19:45 Hydralazine HCl 10 mg Q6HP PRN IV 06/12/25 15:30 Hydralazine HCl 25 mg BID PO 06/12/25 22:00 06/14/25 10:31 25 MG Amlodipine Besylate 5 mg DAILY PO 06/13/25 10:00 Isosorbide Mononitrate 60 mg DAILY PO 06/13/25 10:00 06/14/25 09:07 60 MG Enoxaparin Sodium 30 mg DAILY SC 06/13/25 10:00 06/14/25 09:04 30 MG Furosemide 20 mg DAILY IV 06/13/25 10:00 06/14/25 09:07 20 MG Examination: GENERAL:Normal, HEENT:Normal, NECK:Normal, LUNGS:Normal, LUNGS:Abnormal (on oxygen, rhonchi), CVS:Normal, ABDOMEN:Normal, MSK:Normal, SKIN:Normal, NEURO:Normal, :Normal laboratory and microbiology Laboratory Tests 06/14/25 09:55 Test 06/14/25 09:55 Range/Units Serum Glucose 307 H 74-106 mg/dL Microbiology Date/Time Source Procedure Growth Status 06/11/25 12:30 Blood Blood Culture - Preliminary NO GROWTH AFTER 48 HOURS OF INCUBATION. Resulted Problem List/Assessment/Plan Problem List/Assessment/Plan #1 acute resp failure: cont oxygen #2 acute on chronic diastolic heart failure: lasix iv #3 htn #4 morbid obesity #5 acute on chronic renal failure ?vasomotor nephropathy: nephro eval #6 s/p tavr #7 bradycardia #8 gout #9 copd ?exacerbation #10 ?pneumonia- gram positive/neg: iv antibiotics advance care planning- full code- time spent 19 mins Plan discussed with: Patient My Orders My Orders Orders - ARI FRAZIER MD Procedure Category Date Status Time Furosemide Injection PHA 06/14/25 Transmitted (Lasix Injection) 22:00 Azithromycin Tablet PHA 06/15/25 Transmitted (Zithromax Tablet) 10:00 *[facility] CONS 06/14/25 Transmitted -[place] 12:15 Basic Metabolic Panel LAB 06/15/25 Verified 06:00 Complete Blood Count LAB 06/15/25 Verified 06:00 Chest Portable XY 06/15/25 Logged 06:00 Date of Service: Jun 14, 2025 Billing Provider: ARI FRAZIER MD Common Visit Codes: [id number] INP/OBS CARE(HIGH) Secondary Visit Codes: [id number] CARE PLAN 30 MINUTES ARI FRAZIER MD Jun 14, 2025 12:27
--- NOTE | 2025-06-14 12:27 | ECG ---
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
[2025-06-14] MEDS: ALLOPURINOL 100 MG TAB PO ONE (13:51)
--- NOTE | 2025-06-14 13:55 | DVHPN2 ---
Progress Note Date Seen: Jun 14, 2025 Medical Necessity Reason Pt with a Central, PICC or Fol: No Subjective Patient reports: Feels better Objective vital signs Vital Sign Date Time Temp Pulse Resp B/P (MAP) Pulse Ox O2 Delivery O2 Flow Rate FiO2 06/14/25 11:57 45 19 99 06/14/25 11:51 Nasal Cannula 3.0 06/14/25 11:51 32 06/14/25 10:31 140/72 06/14/25 09:00 98.3 98.3 Total Intake and Output 06/13/25 06/13/25 06/14/25 15:00 23:00 07:00 Intake Total 536 ml 466 ml 595 ml Output Total 700 ml 350 ml Balance 536 ml -234 ml 245 ml medications Current Medications Medications Dose Ordered Sig/Payam Route Start Time Stop Time Status Last Admin Dose Admin Ceftriaxone Sodium 50 ml @ 100 mls/hr DAILY IV 06/11/25 19:45 06/14/25 09:04 100 MLS/HR Albuterol 2.5 mg Q6H NEB 06/11/25 19:45 06/14/25 11:51 2.5 MG Sodium Chloride 10 ml Q8HR IV 06/11/25 22:00 06/14/25 13:51 10 ML Docusate Sodium 100 mg BIDPRN PRN PO 06/11/25 19:45 Acetaminophen 650 mg Q6HP PRN PO 06/11/25 19:45 Acetaminophen/ Hydrocodone Bitart 1 tab Q4HP PRN PO 06/11/25 19:45 Hold Ondansetron HCl 4 mg Q4HP PRN IV 06/11/25 19:45 Hydralazine HCl 10 mg Q6HP PRN IV 06/12/25 15:30 Hydralazine HCl 25 mg BID PO 06/12/25 22:00 06/14/25 10:31 25 MG Amlodipine Besylate 5 mg DAILY PO 06/13/25 10:00 Isosorbide Mononitrate 60 mg DAILY PO 06/13/25 10:00 06/14/25 09:07 60 MG Enoxaparin Sodium 30 mg DAILY SC 06/13/25 10:00 06/14/25 09:04 30 MG Furosemide 20 mg BIDD IV 06/14/25 18:00 Azithromycin 500 mg DAILY PO 06/15/25 10:00 Allopurinol 100 mg DAILY PO 06/15/25 10:00 Examination: GENERAL:Abnormal, HEENT:Abnormal, LUNGS:Abnormal, CVS:Abnormal, ABDOMEN:Abnormal laboratory and microbiology Laboratory Tests 06/14/25 09:55 Test 06/14/25 09:55 Range/Units Serum Glucose 307 H 74-106 mg/dL Microbiology Date/Time Source Procedure Growth Status 06/11/25 12:30 Blood Blood Culture - Preliminary NO GROWTH AFTER 72 HOURS OF INCUBATION. Resulted Problem List/Assessment/Plan Problem List/Assessment/Plan sp tavr diastolc advanced HF CKD advanced morbid obesity HTN pulm htn pt on iv lasix 20 here, poor uop, on 60 at home with her nepro increase diuresis renal consult, renal function may worsen could add revatio, minimal help prob 2:1 av block, possible PPM for sinus rates 40s off BB, d/w pt and MD Moreno Plan discussed with: Patient Date of Service: Jun 14, 2025 Billing Provider: JENN TORRE MD Common Visit Codes: NOT BILLABLE JENN TORRE MD Jun 14, 2025 13:55
--- NOTE | 2025-06-14 17:09 | DVHINCON2 ---
Date of service: Jun 14, [address] Moreno Reason for Consultation Acute kidney injury History of Present Illness 85-year-old female past medical history of chronic kidney disease stage [address] Casiano , aortic valve disease status post TAVR on AC, congestive heart failure, hypertension, COPD she presents to the hospital complaining of progressive cough and shortness of breath. She was admitted with a diagnosis of CHF. Nephrology was consulted due to progressive worsening renal function during the hospitalization. Allergies: Coded Allergies: Acetaminophen (Verified Allergy, Unknown, 06/11/25) Hydrocodone (Verified Allergy, Unknown, 06/11/25) Tramadol (Verified Allergy, Unknown, 02/21/24) Home Meds Reported Medications Montelukast Sodium (MONTELUKAST SODIUM) 10 Mg Tab, 1 TAB PO DAILY for 30 Days, #30 06/14/25 Furosemide (Furosemide) 40 Mg Tab, 1 TAB PO DAILY for 30 Days, #30 06/14/25 Allopurinol (Allopurinol) 100 Mg Tab, 1 TAB PO DAILY for 30 Days, #30 06/12/25 Pantoprazole Sodium Sesquihydr (Protonix) 40 Mg Tab, 1 TAB PO QAM for GERD 06/20/23 Aspirin (Aspirin) 81 Mg Tab, 2 TAB PO QAM for CAD 06/20/23 Carvedilol (Carvedilol) 3.125 Mg Tab, 1 TAB PO QAM for HYPERTENSION 06/20/23 Apixaban Base (ELIQUIS) 2.5 Mg Tab, 1 TAB PO BID for CAD 06/20/23 Albuterol Sulfate (Albuterol Sulfate Hfa) 108 Mcg/Act Aer, 2 PUFF IN QID PRN for SHORTNESS OF BREATH 06/20/23 Atorvastatin Calcium (ATORVASTATIN CALCIUM) 20 Mg Tab, 1 TAB PO QPM for HIGH CHOLESTEROL 02/06/23 Current Medications Current Medications Medications (Trade) Dose Ordered Sig/Payam Route PRN Reason Start Time Stop Time Status Last Admin Furosemide (Lasix Injection) 20 mg BIDD IV 06/14/25 18:00 Azithromycin (Zithromax Tablet) 500 mg DAILY PO 06/15/25 10:00 Allopurinol (Zyloprim Tablet) 100 mg DAILY PO 06/15/25 10:00 Family History: Hypertension G8 MOTHER G8 FATHER 19 CHILD H&P Exam Vital Signs/I&O Vital Sign Date Time Temp Pulse Resp B/P (MAP) Pulse Ox O2 Delivery O2 Flow Rate FiO2 06/14/25 16:42 97.9 41 16 124/40 (68) 98 97.9 06/14/25 11:51 Nasal Cannula 3.0 06/14/25 11:51 32 Intake and Output 06/13/25 06/14/25 19:00 07:00 Intake Total 1002 ml 595 ml Output Total 700 ml 350 ml Balance 302 ml 245 ml Intake Oral 702 ml 595 ml IV Total 300 ml Output Urine Total 700 ml 350 ml # Bowel Movements 1 Physical Exam Obese elderly white female Mildly in distress Abdomen is soft nontender nondistended Currently has a cough poor inspiratory effort Bradycardia Trace edema Labs/Diagnostic Data Labs/Diagnostic Data Laboratory Tests Test 06/14/25 09:55 06/13/25 06:42 06/12/25 17:58 06/12/25 10:29 Range/Units White Blood Count 12.8 H 15.6 H 13.7 H 4.4-10.8 10^3/uL Red Blood Count 3.28 L 3.33 L 3.47 L 4.0-5.20 10^6/uL Hemoglobin 10.2 L 10.6 L 10.9 L 12.2-16.2 g/dL Hematocrit 31.2 L 31.6 L 33.5 L 36.0-46.0 % Mean Corpuscular Volume 95.1 94.7 96.7 80.0-100.0 fL Mean Corpuscular Hemoglobin 31.1 31.7 31.3 28.0-32.0 pg Mean Corpuscular Hemoglobin Concent 32.7 33.5 32.4 32.0-36.0 g/dL Red Cell Distribution Width 16.5 H 16.5 H 16.7 H 11.8-14.3 % Platelet Count 225 204 220 140-450 10^3/uL Mean Platelet Volume 11.2 H 10.8 10.3 6.9-10.8 fL Neutrophils (%) (Auto) 96.1 H 94.6 H 95.9 H 37.0-80.0 % Lymphocytes (%) (Auto) 1.9 L 2.6 L 2.6 L 10.0-50.0 % Monocytes (%) (Auto) 2.0 2.8 1.4 0.0-12.0 % Eosinophils (%) (Auto) 0.0 0.0 0.0 0.0-7.0 % Basophils (%) (Auto) 0.0 0.0 0.1 0.0-2.0 % Neutrophils # (Auto) 12.3 H 14.8 H 13.1 H 1.6-8.6 10 ^3/uL Lymphocytes # (Auto) 0.2 L 0.4 0.3 L 0.4-5.4 10 ^3/uL Monocytes # (Auto) 0.3 0.4 0.2 0-1.3 10 ^3/uL Eosinophils # (Auto) 0 0 0 0-0.8 10 ^3/uL Basophils # (Auto) 0 0 0 0-0.2 10 ^3/uL Nucleated Red Blood Cells 0.1 0.1 0.0 % Sodium Level 137 137 139 136-145 mmol/L Potassium Level 4.2 4.2 4.1 3.5-5.1 mmol/L Chloride Level 101 102 103 98-107 mmol/L Carbon Dioxide Level 23 21 22 20-31 mmol/L Anion Gap 13 14 14 5-15 Blood Urea Nitrogen 79 #H 65 #H 52 H 9-23 mg/dL Creatinine 2.54 H 2.41 H 2.29 H 0.550-1.02 mg/dL Glomerular Filtration Rate Calc 18 19 21 >90 mL/min BUN/Creatinine Ratio 31.1 H 27.0 H 22.7 H 10.0-20.0 Serum Glucose 307 H 182 H 247 H 74-106 mg/dL Calcium Level 8.5 L 9.0 9.1 8.7-10.4 mg/dL Magnesium Level 2.9 H 2.8 H 2.6 1.6-2.6 mg/dL Total Bilirubin 0.3 0.3 0.4 0.2-1.0 mg/dL Aspartate Amino Transferase (AST) 24 35 20 13-40 U/L Alanine Aminotransferase (ALT) 39 42 H 17 7-40 U/L Alkaline Phosphatase 68 74 78 46-116 U/L B-Type Natriuretic Peptide 832.48 1267.22 0-100 pg/mL Total Protein 6.3 6.4 7.0 5.7-8.2 g/dL Albumin 4.3 4.3 4.7 3.2-4.8 g/dL Thyroid Stimulating Hormone (TSH) 0.29 L 0.55-4.78 uIU/mL Free Thyroxine (T4) Calculated 1.02 0.89-1.76 ng/dL Troponin I High Sensitivity 168 *H 152 *H </=34 ng/L Platelet Estimate Adequate Test 06/11/25 17:00 06/11/25 12:30 06/11/25 11:33 06/11/25 10:25 Range/Units Urine Color Colorless Yellow Urine Clarity Clear Clear Urine pH 5.5 5.0-9.0 Urine Specific [place] 1.007 1.001-1.035 Urine Protein Negative Negative Urine Ketones Negative Negative Urine Blood Negative Negative /uL Urine Nitrite Negative Negative Urine Bilirubin Negative Negative Urine Urobilinogen Normal Negative mg/dL Urine Leukocyte Esterase Negative Negative /uL Urine RBC 1 0 - 4 /hpf Urine Microscopic WBC 2 0-5 /HPF Urine Squamous Epithelial Cells Few <5 /hpf Urine Bacteria Few H None Seen /hpf Urine Glucose Normal Normal mg/dL Lactic Acid Level 1.3 0.4-2.0 mmol/L Troponin I High Sensitivity 186 *H 177 *H 186 *H </=34 ng/L Sodium Level 141 141 136-145 mmol/L Potassium Level 4.6 4.5 3.5-5.1 mmol/L Chloride Level 106 107 98-107 mmol/L Carbon Dioxide Level 26 26 20-31 mmol/L Anion Gap 9 8 5-15 Blood Urea Nitrogen 44 H 39 H 9-23 mg/dL Creatinine 1.86 H 1.87 H 0.550-1.02 mg/dL Glomerular Filtration Rate Calc 27 26 >90 mL/min BUN/Creatinine Ratio 23.7 H 20.9 H 10.0-20.0 Serum Glucose 101 104 74-106 mg/dL Calcium Level 8.8 9.2 8.7-10.4 mg/dL Total Bilirubin 0.4 0.2-1.0 mg/dL Aspartate Amino Transferase (AST) 20 13-40 U/L Alanine Aminotransferase (ALT) 14 7-40 U/L Alkaline Phosphatase 75 46-116 U/L Total Protein 5.6 L 5.7-8.2 g/dL Albumin 3.9 3.2-4.8 g/dL White Blood Count 12.3 H 4.4-10.8 10^3/uL Red Blood Count 3.45 L 4.0-5.20 10^6/uL Hemoglobin 10.8 L 12.2-16.2 g/dL Hematocrit 33.1 L 36.0-46.0 % Mean Corpuscular Volume 95.8 80.0-100.0 fL Mean Corpuscular Hemoglobin 31.2 28.0-32.0 pg Mean Corpuscular Hemoglobin Concent 32.6 32.0-36.0 g/dL Red Cell Distribution Width 16.5 H 11.8-14.3 % Platelet Count 211 140-450 10^3/uL Mean Platelet Volume 10.3 6.9-10.8 fL Neutrophils (%) (Auto) 68.0 37.0-80.0 % Lymphocytes (%) (Auto) 8.6 L 10.0-50.0 % Monocytes (%) (Auto) 13.4 H 0.0-12.0 % Eosinophils (%) (Auto) 9.3 H 0.0-7.0 % Basophils (%) (Auto) 0.7 0.0-2.0 % Neutrophils # (Auto) 8.4 1.6-8.6 10 ^3/uL Lymphocytes # (Auto) 1.1 0.4-5.4 10 ^3/uL Monocytes # (Auto) 1.7 H 0-1.3 10 ^3/uL Eosinophils # (Auto) 1.2 H 0-0.8 10 ^3/uL Basophils # (Auto) 0.1 0-0.2 10 ^3/uL Nucleated Red Blood Cells 0.1 % Prothrombin Time 11.2 9.3-11.8 sec Prothrombin Time INR 1.06 0.9-1.15 Activated Partial Thromboplast Time 28.4 24.5-34.5 SEC B-Type Natriuretic Peptide 792.39 0-100 pg/mL Assessment 85-year-old female past medical chronic kidney disease and aortic valve disease presents with shortness of breath Acute kidney injury suspect in the setting of cardiorenal syndrome and hemodynamics Chronic kidney disease stage 3 a, Dr. 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 History of TAVR Patient likely has a combination of systolic heart failure and pneumonia. Worsening creatinine while diuresis likely may be due to poor mobilization of fluid and poor cardiac function. We will gradually increase diuretic therapy although we will add albumin IV for the next 24 hours. Given patient's extensive cardiac history recommend avoid hypotensive or hemodynamic changes at this time. If patient were to receive contrast studies for any reason at this time she would be high-risk for contrast induced nephropathy and would likely need to start dialysis recommend evaluation b enefits prior to making a decision if required. Treatment of pneumonia Cardiology Patient has very guarded renal prognosis with very high-risk and requiring acute or long-term dialysis. Care time 55mins Plan discussed with: Patient GREG HA MD Jun 14, 2025 17:08
[2025-06-14] MEDS ORDERED: FUROSEMIDE 20 MG/2 ML VIAL IV SCH (18:00)
[2025-06-14] MEDS: ALBUMIN 25% 50 ML IV SCH (18:08)
[2025-06-14] MEDS: FUROSEMIDE 20 MG/2 ML VIAL IV SCH (18:32)
[2025-06-15] VITALS (19 sets, daily range): BP systolic 107–135; BP diastolic 45–57; PULSE 36–45; RESP 17–22; TEMP 97.1–98.7; O2SAT 92–100
--- NOTE | 2025-06-15 01:29 | DVH ---
BILATERAL RENAL ULTRASOUND CLINICAL HISTORY: [place] COMPARISON: US ABDOMEN LIMITED on DOS: 02/06/23 TECHNIQUE: High-resolution real-time grayscale and color flow imaging is performed. FINDINGS: Right kidney: Measures 7.3 cm in length. No hydronephrosis. Increased parenchymal echogenicity. Joann l cortical thickness. Left kidney: Measures 7.9 cm in length. No hydronephrosis. Increased parenchymal echogenicity. Joann l cortical thickness. Bladder: The bladder is partially filled, but grossly unremarkable as visualized. IMPRESSION: No hydronephrosis. Increased bilateral renal parenchymal echogenicity which can be seen with medical renal disease. Plea se correlate clinically. HS:Y
[2025-06-15] MEDS: AZITHROMYCIN 250 MG TAB PO SCH (09:13)
[2025-06-15] MEDS: ALLOPURINOL 100 MG TAB PO SCH (09:15)
--- NOTE | 2025-06-15 09:29 | DVH ---
EXAM: XY CHEST PORTABLE Indication: chf Technique: Single frontal view of the chest was obtained Comparison: XY CHEST PORTABLE on DOS: 06/11/25, XY CHEST PORTABLE on DOS: 02/27/24, XY CHEST PORTABLE on DOS: 02/21/24, US CHEST ULTRASOUND on DOS: 02/11/23, CT CHEST WITHOUT CONTRAST on DOS: 02/11/23 FINDINGS: Lines and Tubes: None Lungs: Mild pulmonary vascular congestion. Pleura: No effusion. No pneumothorax. Cardiomediastinal contours: Unremarkable. Atherosclerotic vascular calcifications of the thoracic ao rta are noted. Bones: No acute osseous abnormality. IMPRESSION: Mild pulmonary vascular congestion.
--- NOTE | 2025-06-15 11:04 | DVHPN2 ---
Progress Note Date Seen: Jun 15, 2025 Medical Necessity Reason Pt with a Central, PICC or Fol: No Subjective Patient reports: No new complaints Review of Systems: HEENT:Normal, CVS:Normal, RESPIRATORY:Normal, GI:Normal, :Normal, MSK:Normal, NEURO:Normal Objective vital signs Vital Sign Date Time Temp Pulse Resp B/P (MAP) Pulse Ox O2 Delivery O2 Flow Rate FiO2 06/15/25 09:39 122/74 06/15/25 08:50 97.1 43 20 98 97.1 06/15/25 06:34 Nasal Cannula 3.0 06/15/25 06:34 32 Total Intake and Output 06/14/25 06/14/25 06/15/25 15:00 23:00 07:00 Intake Total 300 ml 700 ml 200 ml Output Total 900 ml 1100 ml Balance 300 ml -200 ml -900 ml medications Current Medications Medications Dose Ordered Sig/Payam Route Start Time Stop Time Status Last Admin Dose Admin Ceftriaxone Sodium 50 ml @ 100 mls/hr DAILY IV 06/11/25 19:45 06/15/25 09:37 100 MLS/HR Albuterol 2.5 mg Q6H NEB 06/11/25 19:45 06/15/25 06:34 2.5 MG Sodium Chloride 10 ml Q8HR IV 06/11/25 22:00 06/15/25 05:43 10 ML Docusate Sodium 100 mg BIDPRN PRN PO 06/11/25 19:45 Acetaminophen 650 mg Q6HP PRN PO 06/11/25 19:45 Acetaminophen/ Hydrocodone Bitart 1 tab Q4HP PRN PO 06/11/25 19:45 Hold Ondansetron HCl 4 mg Q4HP PRN IV 06/11/25 19:45 Hydralazine HCl 10 mg Q6HP PRN IV 06/12/25 15:30 Hydralazine HCl 25 mg BID PO 06/12/25 22:00 06/15/25 09:39 25 MG Amlodipine Besylate 5 mg DAILY PO 06/13/25 10:00 Isosorbide Mononitrate 60 mg DAILY PO 06/13/25 10:00 06/15/25 09:15 60 MG Enoxaparin Sodium 30 mg DAILY SC 06/13/25 10:00 06/15/25 09:15 30 MG Azithromycin 500 mg DAILY PO 06/15/25 10:00 06/15/25 09:13 500 MG Allopurinol 100 mg DAILY PO 06/15/25 10:00 06/15/25 09:15 100 MG Furosemide 40 mg BIDD IV 06/14/25 18:00 06/15/25 05:44 40 MG Examination: GENERAL:Normal, HEENT:Normal, NECK:Normal, LUNGS:Normal, LUNGS:Abnormal (on oxygen), CVS:Normal, ABDOMEN:Normal, MSK:Normal, SKIN:Normal, NEURO:Normal, :Normal laboratory and microbiology Laboratory Tests 06/14/25 09:55 Test 06/14/25 09:55 Range/Units Serum Glucose 307 H 74-106 mg/dL Microbiology Date/Time Source Procedure Growth Status 06/11/25 12:30 Blood Blood Culture - Preliminary NO GROWTH AFTER 72 HOURS OF INCUBATION. Resulted Problem List/Assessment/Plan Problem List/Assessment/Plan #1 acute resp failure: cont oxygen #2 acute on chronic diastolic heart failure: lasix iv #3 htn #4 morbid obesity #5 acute on chronic renal failure ?vasomotor nephropathy: nephro eval #6 s/p tavr #7 bradycardia #8 gout #9 copd ?exacerbation #10 ?pneumonia- gram positive/neg: iv antibiotics advance care planning- full code- time spent 19 mins Plan discussed with: Patient My Orders My Orders Orders - ARI FRAZIER MD Procedure Category Date Status Time Azithromycin Tablet PHA 06/15/25 In Process (Zithromax Tablet) 10:00 *[facility] CONS 06/14/25 Transmitted -[facility] 12:15 Chest Portable XY 06/15/25 Resulted 06:00 Allopurinol Tablet PHA 06/15/25 In Process (Zyloprim Tablet) 10:00 Date of Service: Jun 15, 2025 Billing Provider: ARI FRAZIER MD Common Visit Codes: [id number] INP/OBS CARE([facility]) ARI FRAZIER MD Jun 15, 2025 11:04
[2025-06-15 11:42] LABS: Hematocrit 29.1 % (36.0-46.0); Hemoglobin 9.6 g/dL (12.2-16.2); Mean Corpuscular Hemoglobin 30.8 pg (28.0-32.0); Mean Corpuscular Volume 93.5 fL (80.0-100.0); Nucleated Red Blood Cells % 0.1 %
[2025-06-15 11:56] LABS: Alanine Aminotransferase 28 U/L (7-40); Albumin 4.3 g/dL (3.2-4.8); Alkaline Phosphatase 60 U/L (46-116); Anion Gap 10 (5-15); BUN/Creatinine Ratio 37.1 (10.0-20.0); Carbon Dioxide 27 mmol/L (20-31); Chloride 99 mmol/L (98-107); Potassium 3.7 mmol/L (3.5-5.1); Sodium 136 mmol/L (136-145); Total Protein 6.2 g/dL (5.7-8.2)
[2025-06-15 11:57] LABS: Bilirubin, Total 0.3 mg/dL (0.2-1.0)
[2025-06-15 12:07] LABS: Glucose 171 mg/dL (74-106)
--- NOTE | 2025-06-15 12:09 | DVHPN2 ---
Progress Note Date Seen: Jun 16, 2025 Medical Necessity Reason Pt with a Central, PICC or Fol: No Objective vital signs Vital Sign Date Time Temp Pulse Resp B/P (MAP) Pulse Ox O2 Delivery O2 Flow Rate FiO2 06/15/25 11:48 38 18 100 06/15/25 11:42 Nasal Cannula* 2 28 06/15/25 09:39 122/74 06/15/25 08:50 97.1 97.1 Total Intake and Output 06/14/25 06/14/25 06/15/25 15:00 23:00 07:00 Intake Total 300 ml 700 ml 200 ml Output Total 900 ml 1100 ml Balance 300 ml -200 ml -900 ml medications Current Medications Medications Dose Ordered Sig/Payam Route Start Time Stop Time Status Last Admin Dose Admin Ceftriaxone Sodium 50 ml @ 100 mls/hr DAILY IV 06/11/25 19:45 06/15/25 09:37 100 MLS/HR Albuterol 2.5 mg Q6H NEB 06/11/25 19:45 06/15/25 11:42 2.5 MG Sodium Chloride 10 ml Q8HR IV 06/11/25 22:00 06/15/25 05:43 10 ML Docusate Sodium 100 mg BIDPRN PRN PO 06/11/25 19:45 Acetaminophen 650 mg Q6HP PRN PO 06/11/25 19:45 Ondansetron HCl 4 mg Q4HP PRN IV 06/11/25 19:45 Hydralazine HCl 10 mg Q6HP PRN IV 06/12/25 15:30 Hydralazine HCl 25 mg BID PO 06/12/25 22:00 06/15/25 09:39 25 MG Amlodipine Besylate 5 mg DAILY PO 06/13/25 10:00 Isosorbide Mononitrate 60 mg DAILY PO 06/13/25 10:00 06/15/25 09:15 60 MG Enoxaparin Sodium 30 mg DAILY SC 06/13/25 10:00 06/15/25 09:15 30 MG Azithromycin 500 mg DAILY PO 06/15/25 10:00 06/15/25 09:13 500 MG Allopurinol 100 mg DAILY PO 06/15/25 10:00 06/15/25 09:15 100 MG Furosemide 40 mg BIDD IV 06/14/25 18:00 06/15/25 05:44 40 MG laboratory and microbiology Laboratory Tests 06/15/25 11:13 Test 06/15/25 11:13 Range/Units Serum Glucose Pending Microbiology Date/Time Source Procedure Growth Status 06/11/25 12:30 Blood Blood Culture - Preliminary NO GROWTH AFTER 72 HOURS OF INCUBATION. Resulted Problem List/Assessment/Plan Problem List/Assessment/Plan sp tavr diastolc advanced HF CKD advanced morbid obesity HTN pulm htn pt on iv lasix 20 here, poor uop, on 60 at home with her nepro increase diuresis renal consult, renal function may worsen could add revatio, minimal help prob 2:1 av block, possible PPM for sinus rates 40s off BB, d/w pt and MD Moreno Plan discussed with: Patient Date of Service: Jun 16, 2025 Billing Provider: JENN TORRE MD Common Visit Codes: NOT BILLABLE JENN TORRE MD Jun 15, 2025 12:09
[2025-06-15 12:10] LABS: Blood Urea Nitrogen 96 mg/dL (9-23); Calcium 8.5 mg/dL (8.7-10.4); Magnesium 2.8 mg/dL (1.6-2.6)
--- NOTE | 2025-06-15 13:00 | DVHPN2 ---
Progress Note Date Seen: Jun 15, 2025 Medical Necessity Reason Pt with a Central, PICC or Fol: No Subjective Patient reports: Feels better Review of Systems: CVS:Abnormal Objective vital signs Vital Sign Date Time Temp Pulse Resp B/P (MAP) Pulse Ox O2 Delivery O2 Flow Rate FiO2 06/15/25 12:35 97.3 42 19 107/45 (65) 99 97.3 06/15/25 11:42 Nasal Cannula* 2 28 Total Intake and Output 06/14/25 06/14/25 06/15/25 15:00 23:00 07:00 Intake Total 300 ml 700 ml 200 ml Output Total 900 ml 1100 ml Balance 300 ml -200 ml -900 ml medications Current Medications Medications Dose Ordered Sig/Payam Route Start Time Stop Time Status Last Admin Dose Admin Ceftriaxone Sodium 50 ml @ 100 mls/hr DAILY IV 06/11/25 19:45 06/15/25 09:37 100 MLS/HR Albuterol 2.5 mg Q6H NEB 06/11/25 19:45 06/15/25 11:42 2.5 MG Sodium Chloride 10 ml Q8HR IV 06/11/25 22:00 06/15/25 05:43 10 ML Docusate Sodium 100 mg BIDPRN PRN PO 06/11/25 19:45 Acetaminophen 650 mg Q6HP PRN PO 06/11/25 19:45 Ondansetron HCl 4 mg Q4HP PRN IV 06/11/25 19:45 Hydralazine HCl 10 mg Q6HP PRN IV 06/12/25 15:30 Hydralazine HCl 25 mg BID PO 06/12/25 22:00 06/15/25 09:39 25 MG Amlodipine Besylate 5 mg DAILY PO 06/13/25 10:00 Isosorbide Mononitrate 60 mg DAILY PO 06/13/25 10:00 06/15/25 09:15 60 MG Enoxaparin Sodium 30 mg DAILY SC 06/13/25 10:00 06/15/25 09:15 30 MG Azithromycin 500 mg DAILY PO 06/15/25 10:00 06/15/25 09:13 500 MG Allopurinol 100 mg DAILY PO 06/15/25 10:00 06/15/25 09:15 100 MG Furosemide 40 mg BIDD IV 06/14/25 18:00 06/15/25 05:44 40 MG Examination: GENERAL:Abnormal, LUNGS:Abnormal, CVS:Abnormal laboratory and microbiology Laboratory Tests 06/15/25 11:13 Test 06/15/25 11:13 Range/Units Serum Glucose 171 H 74-106 mg/dL Microbiology Date/Time Source Procedure Growth Status 06/11/25 12:30 Blood Blood Culture - Preliminary NO GROWTH AFTER 72 HOURS OF INCUBATION. Resulted Problem List/Assessment/Plan Problem List/Assessment/Plan 85-year-old female past medical chronic kidney disease and aortic valve disease presents with shortness of breath Acute kidney injury suspect in the setting of cardiorenal syndrome and hemodynamics Chronic kidney disease stage 3 a, Dr. 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 s/p 2L removed with diuretics . Will hold dose today and resume tomorrow due to BUN rise resume tomorrow as 40mg IV daily Given patient's extensive cardiac history recommend avoid hypotensive or hemodynamic changes at this time. If patient were to receive contrast studies for any reason at this time she would be high-risk for contrast induced nephropathy and would likely need to start dialysis recommend evaluation benefits prior to making a decision if required. Treatment of pneumonia Cardiology Patient has very guarded renal prognosis with very high-risk and requiring acute or long-term dialysis. Plan discussed with: Patient My Orders My Orders Orders - GREG HA MD Procedure Category Date Status Time Furosemide Injection PHA 06/14/25 In Process (Lasix Injection) 18:00 Kidney US 06/14/25 Resulted 17:09 Total Time (mins): 40 GREG HA MD Jun 15, 2025 13:00
[2025-06-15] MEDS: ACETAMINOPHEN 325 MG TAB PO PRN (21:51)
[2025-06-16] VITALS (14 sets, daily range): BP systolic 118–163; BP diastolic 50–57; PULSE 40–51; RESP 16–20; TEMP 97.6–98.5; O2SAT 92–100
[2025-06-16 08:31] LABS: Hematocrit 32.8 % (36.0-46.0); Mean Corpuscular Hemoglobin 31.1 pg (28.0-32.0); Mean Corpuscular Volume 95.1 fL (80.0-100.0); Nucleated Red Blood Cells % 0.1 %
[2025-06-16 08:32] LABS: Hemoglobin 10.7 g/dL (12.2-16.2)
[2025-06-16 08:55] LABS: Alanine Aminotransferase 25 U/L (7-40); Albumin 4.2 g/dL (3.2-4.8); Alkaline Phosphatase 58 U/L (46-116); Anion Gap 12 (5-15); BUN/Creatinine Ratio 36.4 (10.0-20.0); Carbon Dioxide 26 mmol/L (20-31); Chloride 100 mmol/L (98-107); Potassium 4.2 mmol/L (3.5-5.1); Sodium 138 mmol/L (136-145); Total Protein 5.9 g/dL (5.7-8.2)
[2025-06-16 08:56] LABS: Bilirubin, Total 0.6 mg/dL (0.2-1.0)
[2025-06-16 09:02] LABS: Glucose 111 mg/dL (74-106)
[2025-06-16 09:03] LABS: Blood Urea Nitrogen 92 mg/dL (9-23); Calcium 8.7 mg/dL (8.7-10.4); Magnesium 3.1 mg/dL (1.6-2.6)
[2025-06-16] MEDS: FUROSEMIDE 40 MG/4 ML VIAL IV SCH (09:41)
[2025-06-16] MEDS: ALBUTEROL SULF 2.5 MG/0.5ML(0.5%) NEB SOLN NEB SCH (11:13)
--- NOTE | 2025-06-16 11:25 | DVHPN2 ---
Progress Note Date Seen: Jun 16, 2025 Medical Necessity Reason Pt with a Central, PICC or Fol: No Subjective Patient reports: No new complaints Review of Systems: HEENT:Normal, CVS:Normal, RESPIRATORY:Normal, GI:Normal, :Normal, MSK:Normal, NEURO:Normal Objective vital signs Vital Sign Date Time Temp Pulse Resp B/P (MAP) Pulse Ox O2 Delivery O2 Flow Rate FiO2 06/16/25 11:22 51 18 100 06/16/25 11:16 Nasal Cannula* 2 28 06/16/25 09:42 163/52 06/16/25 09:00 98.5 98.5 Total Intake and Output 06/15/25 06/15/25 06/16/25 15:00 23:00 07:00 Intake Total 100 ml 580 ml 150 ml Output Total 801 ml 400 ml Balance 100 ml -221 ml -250 ml medications Current Medications Medications Dose Ordered Sig/Payam Route Start Time Stop Time Status Last Admin Dose Admin Ceftriaxone Sodium 50 ml @ 100 mls/hr DAILY IV 06/11/25 19:45 06/16/25 09:41 100 MLS/HR Sodium Chloride 10 ml Q8HR IV 06/11/25 22:00 06/16/25 05:40 10 ML Docusate Sodium 100 mg BIDPRN PRN PO 06/11/25 19:45 Acetaminophen 650 mg Q6HP PRN PO 06/11/25 19:45 06/15/25 21:51 650 MG Ondansetron HCl 4 mg Q4HP PRN IV 06/11/25 19:45 Hydralazine HCl 10 mg Q6HP PRN IV 06/12/25 15:30 Hydralazine HCl 25 mg BID PO 06/12/25 22:00 06/16/25 09:42 25 MG Amlodipine Besylate 5 mg DAILY PO 06/13/25 10:00 06/16/25 09:42 5 MG Isosorbide Mononitrate 60 mg DAILY PO 06/13/25 10:00 06/16/25 09:42 60 MG Enoxaparin Sodium 30 mg DAILY SC 06/13/25 10:00 06/16/25 09:42 30 MG Azithromycin 500 mg DAILY PO 06/15/25 10:00 06/16/25 09:43 500 MG Allopurinol 100 mg DAILY PO 06/15/25 10:00 06/16/25 09:43 100 MG Furosemide 40 mg DAILY IV 06/16/25 10:00 06/16/25 09:41 40 MG Albuterol 2.5 mg Q6H NEB 06/16/25 12:00 06/16/25 11:13 2.5 MG Examination: GENERAL:Normal, HEENT:Normal, NECK:Normal, LUNGS:Normal, LUNGS:Abnormal (on oxygen), CVS:Normal, CVS:Abnormal (ana), ABDOMEN:Normal, MSK:Normal, SKIN:Normal, NEURO:Normal, :Normal laboratory and microbiology Laboratory Tests 06/16/25 07:40 Test 06/16/25 07:40 Range/Units Serum Glucose 111 H 74-106 mg/dL Microbiology Date/Time Source Procedure Growth Status 06/11/25 12:30 Blood Blood Culture - Preliminary NO GROWTH AFTER 72 HOURS OF INCUBATION. Resulted Problem List/Assessment/Plan Problem List/Assessment/Plan #1 acute resp failure: cont oxygen #2 acute on chronic diastolic heart failure: hold lasix iv #3 htn #4 morbid obesity #5 acute on chronic renal failure ?vasomotor nephropathy: nephro eval #6 s/p tavr #7 bradycardia ?pacer #8 gout #9 copd ?exacerbation: iv steroids #10 ?pneumonia- gram positive/neg: iv antibiotics #11 left ear wax: debrox advance care planning- full code- time spent 19 mins Plan discussed with: Patient Date of Service: Jun 16, 2025 Billing Provider: ARI FRAZIER MD Common Visit Codes: [id number] INP/OBS CARE([facility]) ARI FRAZIER MD Jun 16, 2025 11:25
[2025-06-16] MEDS: methylPREDNISolone SOD SUCC 40 MG/ML VL IV ONE (12:15)
[2025-06-16] MEDS: CARBAMIDE PEROXIDE 6.5% OTIC(EAR) SOLN 15ML LEFT EAR ONE (12:15)
--- NOTE | 2025-06-16 17:28 | DVHPN2 ---
Progress Note Date Seen: Jun 16, 2025 Medical Necessity Reason Pt with a Central, PICC or Fol: No Objective vital signs Vital Sign Date Time Temp Pulse Resp B/P (MAP) Pulse Ox O2 Delivery O2 Flow Rate FiO2 06/16/25 11:22 51 18 100 06/16/25 11:16 Nasal Cannula* 2 28 06/16/25 09:42 163/52 06/16/25 09:00 98.5 98.5 Total Intake and Output 06/15/25 06/15/25 06/16/25 15:00 23:00 07:00 Intake Total 100 ml 580 ml 150 ml Output Total 801 ml 400 ml Balance 100 ml -221 ml -250 ml medications Current Medications Medications Dose Ordered Sig/Payam Route Start Time Stop Time Status Last Admin Dose Admin Ceftriaxone Sodium 50 ml @ 100 mls/hr DAILY IV 06/11/25 19:45 06/16/25 09:41 100 MLS/HR Sodium Chloride 10 ml Q8HR IV 06/11/25 22:00 06/16/25 13:16 10 ML Docusate Sodium 100 mg BIDPRN PRN PO 06/11/25 19:45 Acetaminophen 650 mg Q6HP PRN PO 06/11/25 19:45 06/15/25 21:51 650 MG Ondansetron HCl 4 mg Q4HP PRN IV 06/11/25 19:45 Hydralazine HCl 10 mg Q6HP PRN IV 06/12/25 15:30 Hydralazine HCl 25 mg BID PO 06/12/25 22:00 06/16/25 09:42 25 MG Amlodipine Besylate 5 mg DAILY PO 06/13/25 10:00 06/16/25 09:42 5 MG Isosorbide Mononitrate 60 mg DAILY PO 06/13/25 10:00 06/16/25 09:42 60 MG Azithromycin 500 mg DAILY PO 06/15/25 10:00 06/16/25 09:43 500 MG Allopurinol 100 mg DAILY PO 06/15/25 10:00 06/16/25 09:43 100 MG Albuterol 2.5 mg Q6H NEB 06/16/25 12:00 06/16/25 11:13 2.5 MG Methylprednisolone Sodium Succinate 40 mg BID IV 06/16/25 22:00 Carbamide Peroxide 5 drop Q12HR LEFT EAR 06/16/25 22:00 Albuterol 2.5 mg Q4HPRN PRN NEB 06/16/25 11:30 Examination: GENERAL:Abnormal, HEENT:Abnormal, LUNGS:Abnormal, CVS:Abnormal, ABDOMEN:Abnormal laboratory and microbiology Laboratory Tests 06/16/25 07:40 Test 06/16/25 07:40 Range/Units Serum Glucose 111 H 74-106 mg/dL Microbiology Date/Time Source Procedure Growth Status 06/11/25 12:30 Blood Blood Culture - Final NO GROWTH AFTER 5 DAYS OF INCUBATION. Complete Problem List/Assessment/Plan Problem List/Assessment/Plan sp tavr diastolc advanced HF CKD advanced morbid obesity HTN pulm htn pt on iv lasix 20 here, poor uop, on 60 at home with her nepro increase diuresis renal consult, renal function may worsen could add revatio, minimal help prob 2:1 av block, possible PPM for sinus rates 40s off BB, d/w pt and MD Moreno Plan discussed with: Patient Dietary Evaluation Review Comments: Nutrition Recommendaiton 1) MVI 1 tab daily 2) Monitor PO intake, lab values, weight trend, and I/O Expected Outcomes/Goals: Lab values to improve Fu 3-5 days Date of Service: Jun 20, 2025 Billing Provider: JENN TORRE MD Common Visit Codes: NOT BILLABLE JENN TORRE MD Jun 16, 2025 17:28
--- NOTE | 2025-06-16 18:47 | DVHPN2 ---
Progress Note Date Seen: Jun 16, 2025 Medical Necessity Reason Pt with a Central, PICC or Fol: No Subjective Patient reports: No new complaints Review of Systems: Deferred Objective vital signs Vital Sign Date Time Temp Pulse Resp B/P (MAP) Pulse Ox O2 Delivery O2 Flow Rate FiO2 06/16/25 17:00 97.6 43 17 123/57 (79) 99 97.6 06/16/25 11:16 Nasal Cannula* 2 28 Total Intake and Output 06/15/25 06/15/25 06/16/25 15:00 23:00 07:00 Intake Total 100 ml 580 ml 150 ml Output Total 801 ml 400 ml Balance 100 ml -221 ml -250 ml medications Current Medications Medications Dose Ordered Sig/Payam Route Start Time Stop Time Status Last Admin Dose Admin Ceftriaxone Sodium 50 ml @ 100 mls/hr DAILY IV 06/11/25 19:45 06/16/25 09:41 100 MLS/HR Sodium Chloride 10 ml Q8HR IV 06/11/25 22:00 06/16/25 13:16 10 ML Docusate Sodium 100 mg BIDPRN PRN PO 06/11/25 19:45 Acetaminophen 650 mg Q6HP PRN PO 06/11/25 19:45 06/15/25 21:51 650 MG Ondansetron HCl 4 mg Q4HP PRN IV 06/11/25 19:45 Hydralazine HCl 10 mg Q6HP PRN IV 06/12/25 15:30 Hydralazine HCl 25 mg BID PO 06/12/25 22:00 06/16/25 09:42 25 MG Amlodipine Besylate 5 mg DAILY PO 06/13/25 10:00 06/16/25 09:42 5 MG Isosorbide Mononitrate 60 mg DAILY PO 06/13/25 10:00 06/16/25 09:42 60 MG Azithromycin 500 mg DAILY PO 06/15/25 10:00 06/16/25 09:43 500 MG Allopurinol 100 mg DAILY PO 06/15/25 10:00 06/16/25 09:43 100 MG Albuterol 2.5 mg Q6H NEB 06/16/25 12:00 06/16/25 17:43 2.5 MG Methylprednisolone Sodium Succinate 40 mg BID IV 06/16/25 22:00 Carbamide Peroxide 5 drop Q12HR LEFT EAR 06/16/25 22:00 Albuterol 2.5 mg Q4HPRN PRN NEB 06/16/25 11:30 laboratory and microbiology Laboratory Tests 06/16/25 07:40 Test 06/16/25 07:40 Range/Units Serum Glucose 111 H 74-106 mg/dL Microbiology Date/Time Source Procedure Growth Status 06/11/25 12:30 Blood Blood Culture - Final NO GROWTH AFTER 5 DAYS OF INCUBATION. Complete Problem List/Assessment/Plan Problem List/Assessment/Plan Acute kidney injury suspect in the setting of cardiorenal syndrome and hemodynamics Chronic kidney disease stage 3 a, Dr. 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
[2025-06-16] MEDS: methylPREDNISolone SOD SUCC 40 MG/ML VL IV SCH (22:03)
[2025-06-16] MEDS: CARBAMIDE PEROXIDE 6.5% OTIC(EAR) SOLN 15ML LEFT EAR SCH (22:13)
[2025-06-17] VITALS (19 sets, daily range): BP systolic 125–157; BP diastolic 52–76; PULSE 28–78; RESP 16–20; TEMP 97.7–98.4; O2SAT 94–100
[2025-06-17 06:53] LABS: Hematocrit 31.8 % (36.0-46.0); Hemoglobin 10.7 g/dL (12.2-16.2); Mean Corpuscular Hemoglobin 31.4 pg (28.0-32.0); Mean Corpuscular Volume 93.2 fL (80.0-100.0); Nucleated Red Blood Cells % 0.0 %
[2025-06-17 06:57] LABS: Chloride 100 mmol/L (98-107); Potassium 4.4 mmol/L (3.5-5.1); Sodium 137 mmol/L (136-145)
[2025-06-17 06:58] LABS: Anion Gap 11 (5-15); Carbon Dioxide 26 mmol/L (20-31)
[2025-06-17 06:59] LABS: Calcium 9.2 mg/dL (8.7-10.4)
[2025-06-17 07:04] LABS: BUN/Creatinine Ratio 36.1 (10.0-20.0)
[2025-06-17 07:10] LABS: Glucose 177 mg/dL (74-106)
[2025-06-17 07:12] LABS: Blood Urea Nitrogen 88 mg/dL (9-23)
--- NOTE | 2025-06-17 16:13 | DVHPN2 ---
Progress Note Date Seen: Jun 17, 2025 Medical Necessity Reason Pt with a Central, PICC or Fol: No Subjective Patient reports: No new complaints Review of Systems: HEENT:Normal, CVS:Normal, RESPIRATORY:Normal, GI:Normal, :Normal, MSK:Normal, NEURO:Normal Objective vital signs Vital Sign Date Time Temp Pulse Resp B/P (MAP) Pulse Ox O2 Delivery O2 Flow Rate FiO2 06/17/25 13:03 40 16 98 06/17/25 13:00 98.4 147/52 (83) 98.4 06/17/25 08:14 Nasal Cannula* 3 32 Total Intake and Output 06/16/25 06/16/25 06/17/25 15:00 23:00 07:00 Intake Total 50 ml 715 ml 500 ml Output Total 1300 ml 900 ml Balance 50 ml -585 ml -400 ml medications Current Medications Medications Dose Ordered Sig/Payam Route Start Time Stop Time Status Last Admin Dose Admin Ceftriaxone Sodium 50 ml @ 100 mls/hr DAILY IV 06/11/25 19:45 06/17/25 10:18 100 MLS/HR Sodium Chloride 10 ml Q8HR IV 06/11/25 22:00 06/17/25 14:28 10 ML Docusate Sodium 100 mg BIDPRN PRN PO 06/11/25 19:45 Acetaminophen 650 mg Q6HP PRN PO 06/11/25 19:45 06/15/25 21:51 650 MG Ondansetron HCl 4 mg Q4HP PRN IV 06/11/25 19:45 Hydralazine HCl 10 mg Q6HP PRN IV 06/12/25 15:30 Hydralazine HCl 25 mg BID PO 06/12/25 22:00 06/16/25 09:42 25 MG Amlodipine Besylate 5 mg DAILY PO 06/13/25 10:00 06/16/25 09:42 5 MG Isosorbide Mononitrate 60 mg DAILY PO 06/13/25 10:00 06/16/25 09:42 60 MG Azithromycin 500 mg DAILY PO 06/15/25 10:00 06/17/25 10:18 500 MG Allopurinol 100 mg DAILY PO 06/15/25 10:00 06/17/25 10:18 100 MG Albuterol 2.5 mg Q6H NEB 06/16/25 12:00 06/17/25 12:53 2.5 MG Methylprednisolone Sodium Succinate 40 mg BID IV 06/16/25 22:00 06/17/25 10:18 40 MG Carbamide Peroxide 5 drop Q12HR LEFT EAR 06/16/25 22:00 06/17/25 10:18 5 DROP Albuterol 2.5 mg Q4HPRN PRN NEB 06/16/25 11:30 Examination: GENERAL:Normal, HEENT:Normal, NECK:Normal, LUNGS:Normal, LUNGS:Abnormal (on oxygen), CVS:Normal, ABDOMEN:Normal, MSK:Normal, SKIN:Normal, NEURO:Normal, :Normal laboratory and microbiology Laboratory Tests 06/17/25 05:18 Test 06/17/25 05:18 Range/Units Serum Glucose 177 H 74-106 mg/dL Microbiology Date/Time Source Procedure Growth Status 06/11/25 12:30 Blood Blood Culture - Final NO GROWTH AFTER 5 DAYS OF INCUBATION. Complete Problem List/Assessment/Plan Problem List/Assessment/Plan #1 acute resp failure: cont oxygen #2 acute on chronic diastolic heart failure: hold lasix iv #3 htn #4 morbid obesity #5 acute on chronic renal failure ?vasomotor nephropathy: nephro eval #6 s/p tavr #7 bradycardia/ a flutter: pacer today #8 gout #9 copd ?exacerbation: iv steroids #10 ?pneumonia- gram positive/neg: iv antibiotics #11 left ear wax: debrox advance care planning- full code- time spent 19 mins Plan discussed with: Other (rn) My Orders My Orders Orders - ARI FRAZIER MD Procedure Category Date Status Time Communication Order ORDERS 06/16/25 Transmitted 16:52 Basic Metabolic Panel LAB 06/18/25 Verified 06:00 Complete Blood Count LAB 06/18/25 Verified 06:00 Dietary Evaluation Review Comments: Nutrition Recommendaiton 1) MVI 1 tab daily 2) Monitor PO intake, lab values, weight trend, and I/O Expected Outcomes/Goals: Lab values to improve Fu 3-5 days Date of Service: Jun 17, 2025 Billing Provider: ARI FRAZIER MD Common Visit Codes: [id number] INP/OBS CARE([facility]) ARI FRAZIER MD Jun 17, 2025 16:12
--- NOTE | 2025-06-17 17:26 | DVHPN2 ---
Progress Note Date Seen: Jun 17, 2025 Medical Necessity Reason Pt with a Central, PICC or Fol: No Objective vital signs Vital Sign Date Time Temp Pulse Resp B/P (MAP) Pulse Ox O2 Delivery O2 Flow Rate FiO2 06/17/25 13:03 40 16 98 06/17/25 13:00 98.4 147/52 (83) 98.4 06/17/25 08:14 Nasal Cannula* 3 32 Total Intake and Output 06/16/25 06/16/25 06/17/25 15:00 23:00 07:00 Intake Total 50 ml 715 ml 500 ml Output Total 1300 ml 900 ml Balance 50 ml -585 ml -400 ml medications Current Medications Medications Dose Ordered Sig/Payam Route Start Time Stop Time Status Last Admin Dose Admin Ceftriaxone Sodium 50 ml @ 100 mls/hr DAILY IV 06/11/25 19:45 06/17/25 10:18 100 MLS/HR Sodium Chloride 10 ml Q8HR IV 06/11/25 22:00 06/17/25 14:28 10 ML Docusate Sodium 100 mg BIDPRN PRN PO 06/11/25 19:45 Acetaminophen 650 mg Q6HP PRN PO 06/11/25 19:45 06/15/25 21:51 650 MG Ondansetron HCl 4 mg Q4HP PRN IV 06/11/25 19:45 Hydralazine HCl 10 mg Q6HP PRN IV 06/12/25 15:30 Hydralazine HCl 25 mg BID PO 06/12/25 22:00 06/16/25 09:42 25 MG Amlodipine Besylate 5 mg DAILY PO 06/13/25 10:00 06/16/25 09:42 5 MG Isosorbide Mononitrate 60 mg DAILY PO 06/13/25 10:00 06/16/25 09:42 60 MG Azithromycin 500 mg DAILY PO 06/15/25 10:00 06/17/25 10:18 500 MG Allopurinol 100 mg DAILY PO 06/15/25 10:00 06/17/25 10:18 100 MG Albuterol 2.5 mg Q6H NEB 06/16/25 12:00 06/17/25 12:53 2.5 MG Methylprednisolone Sodium Succinate 40 mg BID IV 06/16/25 22:00 06/17/25 10:18 40 MG Carbamide Peroxide 5 drop Q12HR LEFT EAR 06/16/25 22:00 06/17/25 10:18 5 DROP Albuterol 2.5 mg Q4HPRN PRN NEB 06/16/25 11:30 Examination: GENERAL:Abnormal, LUNGS:Abnormal, CVS:Abnormal laboratory and microbiology Laboratory Tests 06/17/25 05:18 Test 06/17/25 05:18 Range/Units Serum Glucose 177 H 74-106 mg/dL Microbiology Date/Time Source Procedure Growth Status 06/11/25 12:30 Blood Blood Culture - Final NO GROWTH AFTER 5 DAYS OF INCUBATION. Complete Problem List/Assessment/Plan Problem List/Assessment/Plan 85-year-old female past medical chronic kidney disease and aortic valve disease presents with shortness of breath Acute kidney injury suspect in the setting of cardiorenal syndrome and hemodynamics Chronic kidney disease stage 3 a, Dr. 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
[2025-06-17] MEDS: LIDOCAINE 2%HCL (LOCAL ANESTH.) INJ 20ML MDV ONE ×2 (20:07→21:20)
[2025-06-17] MEDS: VANCOMYCIN HCL 1000 MG VL ONE (20:07)
[2025-06-17] MEDS: VANCOMYCIN 1GM/200ML PM 200 ML IV ONE (20:09)
[2025-06-17] MEDS: MIDAZOLAM HCL 2MG/2ML 2ml VIAL (1mg/ml) ONE ×2 (20:13→21:18)
[2025-06-17] MEDS: fentaNYL CITRATE 100 MCG/2 ML VL ONE ×2 (20:13→21:18)
--- NOTE | 2025-06-17 21:23 | DVHPN2 ---
Progress Note - Dictate Date Seen: Jun 13, 2025 Medical Necessity Reason Pt with a Central, PICC or Fol: No Subjective Patient was seen and evaluated in follow up. Patient resting in bed. She denies any cardiac symptoms. No chest pain or SOB. vital signs Vital Sign Date Time Temp Pulse Resp B/P (MAP) Pulse Ox O2 Delivery O2 Flow Rate FiO2 06/17/25 13:03 40 16 98 06/17/25 13:00 98.4 147/52 (83) 98.4 06/17/25 08:14 Nasal Cannula* 3 32 Total Intake and Output 06/16/25 06/16/25 06/17/25 15:00 23:00 07:00 Intake Total 50 ml 715 ml 500 ml Output Total 1300 ml 900 ml Balance 50 ml -585 ml -400 ml medications Current Medications Medications Dose Ordered Sig/Payam Route Start Time Stop Time Status Last Admin Dose Admin Ceftriaxone Sodium 50 ml @ 100 mls/hr DAILY IV 06/11/25 19:45 06/17/25 10:18 100 MLS/HR Sodium Chloride 10 ml Q8HR IV 06/11/25 22:00 06/17/25 14:28 10 ML Docusate Sodium 100 mg BIDPRN PRN PO 06/11/25 19:45 Acetaminophen 650 mg Q6HP PRN PO 06/11/25 19:45 06/15/25 21:51 650 MG Ondansetron HCl 4 mg Q4HP PRN IV 06/11/25 19:45 Hydralazine HCl 10 mg Q6HP PRN IV 06/12/25 15:30 Hydralazine HCl 25 mg BID PO 06/12/25 22:00 06/16/25 09:42 25 MG Amlodipine Besylate 5 mg DAILY PO 06/13/25 10:00 06/16/25 09:42 5 MG Isosorbide Mononitrate 60 mg DAILY PO 06/13/25 10:00 06/16/25 09:42 60 MG Azithromycin 500 mg DAILY PO 06/15/25 10:00 06/17/25 10:18 500 MG Allopurinol 100 mg DAILY PO 06/15/25 10:00 06/17/25 10:18 100 MG Albuterol 2.5 mg Q6H NEB 06/16/25 12:00 06/17/25 12:53 2.5 MG Methylprednisolone Sodium Succinate 40 mg BID IV 06/16/25 22:00 06/17/25 10:18 40 MG Carbamide Peroxide 5 drop Q12HR LEFT EAR 06/16/25 22:00 06/17/25 10:18 5 DROP Albuterol 2.5 mg Q4HPRN PRN NEB 06/16/25 11:30 objective GENERAL: Alert and oriented x 3. No acute distress. EYES: PERRL, EOMI. Anicteric. HENT: Moist mucous membranes. LUNGS: Clear to auscultation bilaterally. CARDIOVASCULAR: Regular rate and rhythm. ABDOMEN: Soft, nontender and nondistended. EXTREMITIES: No edema. NEUROLOGIC: No focal neurological deficits. SKIN: Warm, dry. laboratory and microbiology Laboratory Tests 06/17/25 05:18 Test 06/17/25 05:18 Range/Units Serum Glucose 177 H 74-106 mg/dL Problem List NSTEMI. Symptomatic bradycardia. Transient AFib on anticoagulation. Acute on chronic diastolic HF (HFpEF). Severe pulmonary hypertension. Severe aortic stenosis, s/p TAVR. Hypertension. COPD. Obesity. Assessment/Plan Continued all current supportive medical care. Current echocardiogram shows preserved EF (65%) , moderate LVH, diastolic dysfunction and severe pulmonary hypertension (RVSP 58 mmHg). Given symptomatic bradycardia, carvedilol is held at this time. Due to worsening renal function, SALONI inhibitors and arbs are avoided. The patient remains hypertensive, and for afterload reduction and BP control, we will continue isosorbide mononitrate 60 daily, initiate amlodipine 5 mg daily, and start hydralazine 25 mg b.i.d. Furosemide 20 mg daily will be continued for volume management, with monitoring of renal function and electrolytes. We will continue to monitor rate, rhythm, BP, and renal function closely. Additional plan as per the hospital course. Dietary Evaluation Review Comments: Nutrition Recommendaiton 1) MVI 1 tab daily 2) Monitor PO intake, lab values, weight trend, and I/O Expected Outcomes/Goals: Lab values to improve Fu 3-5 days Plan discussed with: Patient CHELY SUMNER MD Jun 17, 2025 21:23
--- NOTE | 2025-06-17 21:25 | DVHPN2 ---
Progress Note - Dictate Date Seen: Jun 14, 2025 Medical Necessity Reason Pt with a Central, PICC or Fol: No Subjective Patient was seen and evaluated in follow up. No overnight events. She is on supplemental O2. Patient reports feeling well today. Telemetry reviewed. vital signs Vital Sign Date Time Temp Pulse Resp B/P (MAP) Pulse Ox O2 Delivery O2 Flow Rate FiO2 06/17/25 13:03 40 16 98 06/17/25 13:00 98.4 147/52 (83) 98.4 06/17/25 08:14 Nasal Cannula* 3 32 Total Intake and Output 06/16/25 06/16/25 06/17/25 15:00 23:00 07:00 Intake Total 50 ml 715 ml 500 ml Output Total 1300 ml 900 ml Balance 50 ml -585 ml -400 ml medications Current Medications Medications Dose Ordered Sig/Payam Route Start Time Stop Time Status Last Admin Dose Admin Ceftriaxone Sodium 50 ml @ 100 mls/hr DAILY IV 06/11/25 19:45 06/17/25 10:18 100 MLS/HR Sodium Chloride 10 ml Q8HR IV 06/11/25 22:00 06/17/25 14:28 10 ML Docusate Sodium 100 mg BIDPRN PRN PO 06/11/25 19:45 Acetaminophen 650 mg Q6HP PRN PO 06/11/25 19:45 06/15/25 21:51 650 MG Ondansetron HCl 4 mg Q4HP PRN IV 06/11/25 19:45 Hydralazine HCl 10 mg Q6HP PRN IV 06/12/25 15:30 Hydralazine HCl 25 mg BID PO 06/12/25 22:00 06/16/25 09:42 25 MG Amlodipine Besylate 5 mg DAILY PO 06/13/25 10:00 06/16/25 09:42 5 MG Isosorbide Mononitrate 60 mg DAILY PO 06/13/25 10:00 06/16/25 09:42 60 MG Azithromycin 500 mg DAILY PO 06/15/25 10:00 06/17/25 10:18 500 MG Allopurinol 100 mg DAILY PO 06/15/25 10:00 06/17/25 10:18 100 MG Albuterol 2.5 mg Q6H NEB 06/16/25 12:00 06/17/25 12:53 2.5 MG Methylprednisolone Sodium Succinate 40 mg BID IV 06/16/25 22:00 06/17/25 10:18 40 MG Carbamide Peroxide 5 drop Q12HR LEFT EAR 06/16/25 22:00 06/17/25 10:18 5 DROP Albuterol 2.5 mg Q4HPRN PRN NEB 06/16/25 11:30 objective GENERAL: Alert and oriented x 3. No acute distress. EYES: PERRL, EOMI. Anicteric. HENT: Moist mucous membranes. LUNGS: Clear to auscultation bilaterally. CARDIOVASCULAR: Regular rate and rhythm. ABDOMEN: Soft, nontender and nondistended. EXTREMITIES: No edema. NEUROLOGIC: No focal neurological deficits. SKIN: Warm, dry. laboratory and microbiology Laboratory Tests 06/17/25 05:18 Test 06/17/25 05:18 Range/Units Serum Glucose 177 H 74-106 mg/dL Problem List NSTEMI. Symptomatic bradycardia. Transient AFib on anticoagulation. Acute on chronic diastolic HF (HFpEF). Severe pulmonary hypertension. Severe aortic stenosis, s/p TAVR. Hypertension. COPD. Obesity. Assessment/Plan Continued all current supportive medical care. Current echocardiogram shows preserved EF (65%) , moderate LVH, diastolic dysfunction and severe pulmonary hypertension (RVSP 58 mmHg). Given symptomatic bradycardia, carvedilol is held at this time. Due to worsening renal function, SALONI inhibitors and arbs are avoided. The patient remains hypertensive, and for afterload reduction and BP control, we will continue isosorbide mononitrate 60 daily, initiate amlodipine 5 mg daily, and start hydralazine 25 mg b.i.d. Furosemide 20 mg daily will be continued for volume management, with monitoring of renal function and electrolytes. We will continue to monitor rate, rhythm, BP, and renal function closely. Additional plan as per the hospital course. Dietary Evaluation Review Comments: Nutrition Recommendaiton 1) MVI 1 tab daily 2) Monitor PO intake, lab values, weight trend, and I/O Expected Outcomes/Goals: Lab values to improve Fu 3-5 days Plan discussed with: Patient CHELY SUMNER MD Jun 17, 2025 21:25
--- NOTE | 2025-06-17 21:26 | DVHPN2 ---
Progress Note - Dictate Date Seen: Jun 15, 2025 Medical Necessity Reason Pt with a Central, PICC or Fol: No Subjective Patient was seen and evaluated in follow up. Patient is on 3 LPM NC. Patient has poor urine output, diuretics increased. HS in the 40s, may benefit from PPM. Telemetry reviewed. vital signs Vital Sign Date Time Temp Pulse Resp B/P (MAP) Pulse Ox O2 Delivery O2 Flow Rate FiO2 06/17/25 13:03 40 16 98 06/17/25 13:00 98.4 147/52 (83) 98.4 06/17/25 08:14 Nasal Cannula* 3 32 Total Intake and Output 06/16/25 06/16/25 06/17/25 15:00 23:00 07:00 Intake Total 50 ml 715 ml 500 ml Output Total 1300 ml 900 ml Balance 50 ml -585 ml -400 ml medications Current Medications Medications Dose Ordered Sig/Payam Route Start Time Stop Time Status Last Admin Dose Admin Ceftriaxone Sodium 50 ml @ 100 mls/hr DAILY IV 06/11/25 19:45 06/17/25 10:18 100 MLS/HR Sodium Chloride 10 ml Q8HR IV 06/11/25 22:00 06/17/25 14:28 10 ML Docusate Sodium 100 mg BIDPRN PRN PO 06/11/25 19:45 Acetaminophen 650 mg Q6HP PRN PO 06/11/25 19:45 06/15/25 21:51 650 MG Ondansetron HCl 4 mg Q4HP PRN IV 06/11/25 19:45 Hydralazine HCl 10 mg Q6HP PRN IV 06/12/25 15:30 Hydralazine HCl 25 mg BID PO 06/12/25 22:00 06/16/25 09:42 25 MG Amlodipine Besylate 5 mg DAILY PO 06/13/25 10:00 06/16/25 09:42 5 MG Isosorbide Mononitrate 60 mg DAILY PO 06/13/25 10:00 06/16/25 09:42 60 MG Azithromycin 500 mg DAILY PO 06/15/25 10:00 06/17/25 10:18 500 MG Allopurinol 100 mg DAILY PO 06/15/25 10:00 06/17/25 10:18 100 MG Albuterol 2.5 mg Q6H NEB 06/16/25 12:00 06/17/25 12:53 2.5 MG Methylprednisolone Sodium Succinate 40 mg BID IV 06/16/25 22:00 06/17/25 10:18 40 MG Carbamide Peroxide 5 drop Q12HR LEFT EAR 06/16/25 22:00 06/17/25 10:18 5 DROP Albuterol 2.5 mg Q4HPRN PRN NEB 06/16/25 11:30 objective GENERAL: Alert and oriented x 3. No acute distress. EYES: PERRL, EOMI. Anicteric. HENT: Moist mucous membranes. LUNGS: Clear to auscultation bilaterally. CARDIOVASCULAR: Regular rate and rhythm. ABDOMEN: Soft, nontender and nondistended. EXTREMITIES: No edema. NEUROLOGIC: No focal neurological deficits. SKIN: Warm, dry. laboratory and microbiology Laboratory Tests 06/17/25 05:18 Test 06/17/25 05:18 Range/Units Serum Glucose 177 H 74-106 mg/dL Problem List NSTEMI. Symptomatic bradycardia. Transient AFib on anticoagulation. Acute on chronic diastolic HF (HFpEF). Severe pulmonary hypertension. Severe aortic stenosis, s/p TAVR. Hypertension. COPD. Obesity. Assessment/Plan Continued all current supportive medical care. Current echocardiogram shows preserved EF (65%) , moderate LVH, diastolic dysfunction and severe pulmonary hypertension (RVSP 58 mmHg). Given symptomatic bradycardia, carvedilol is held at this time. Due to worsening renal function, SALONI inhibitors and arbs are avoided. The patient remains hypertensive, and for afterload reduction and BP control, we will continue isosorbide mononitrate 60 daily, initiate amlodipine 5 mg daily, and start hydralazine 25 mg b.i.d. Furosemide 20 mg daily will be continued for volume management, with monitoring of renal function and electrolytes. We will continue to monitor rate, rhythm, BP, and renal function closely. Additional plan as per the hospital course. Dietary Evaluation Review Comments: Nutrition Recommendaiton 1) MVI 1 tab daily 2) Monitor PO intake, lab values, weight trend, and I/O Expected Outcomes/Goals: Lab values to improve Fu 3-5 days Plan discussed with: Patient CHELY SUMNER MD Jun 17, 2025 21:26
--- NOTE | 2025-06-17 21:29 | DVHPN2 ---
Progress Note - Dictate Date Seen: Jun 16, 2025 Medical Necessity Reason Pt with a Central, PICC or Fol: No Subjective Patient was seen and evaluated in follow up. Patient is on 3 LPM NC. Patients HR continues to be in the mid 40s. Patient advised for PPM insertion at this time. Risks and benefits were discussed with the patient. Patient scheduled for cytology laboratory manager tomorrow. Telemetry reviewed. vital signs Vital Sign Date Time Temp Pulse Resp B/P (MAP) Pulse Ox O2 Delivery O2 Flow Rate FiO2 06/17/25 13:03 40 16 98 06/17/25 13:00 98.4 147/52 (83) 98.4 06/17/25 08:14 Nasal Cannula* 3 32 Total Intake and Output 06/16/25 06/16/25 06/17/25 15:00 23:00 07:00 Intake Total 50 ml 715 ml 500 ml Output Total 1300 ml 900 ml Balance 50 ml -585 ml -400 ml medications Current Medications Medications Dose Ordered Sig/Payam Route Start Time Stop Time Status Last Admin Dose Admin Ceftriaxone Sodium 50 ml @ 100 mls/hr DAILY IV 06/11/25 19:45 06/17/25 10:18 100 MLS/HR Sodium Chloride 10 ml Q8HR IV 06/11/25 22:00 06/17/25 14:28 10 ML Docusate Sodium 100 mg BIDPRN PRN PO 06/11/25 19:45 Acetaminophen 650 mg Q6HP PRN PO 06/11/25 19:45 06/15/25 21:51 650 MG Ondansetron HCl 4 mg Q4HP PRN IV 06/11/25 19:45 Hydralazine HCl 10 mg Q6HP PRN IV 06/12/25 15:30 Hydralazine HCl 25 mg BID PO 06/12/25 22:00 06/16/25 09:42 25 MG Amlodipine Besylate 5 mg DAILY PO 06/13/25 10:00 06/16/25 09:42 5 MG Isosorbide Mononitrate 60 mg DAILY PO 06/13/25 10:00 06/16/25 09:42 60 MG Azithromycin 500 mg DAILY PO 06/15/25 10:00 06/17/25 10:18 500 MG Allopurinol 100 mg DAILY PO 06/15/25 10:00 06/17/25 10:18 100 MG Albuterol 2.5 mg Q6H NEB 06/16/25 12:00 06/17/25 12:53 2.5 MG Methylprednisolone Sodium Succinate 40 mg BID IV 06/16/25 22:00 06/17/25 10:18 40 MG Carbamide Peroxide 5 drop Q12HR LEFT EAR 06/16/25 22:00 06/17/25 10:18 5 DROP Albuterol 2.5 mg Q4HPRN PRN NEB 06/16/25 11:30 objective GENERAL: Alert and oriented x 3. No acute distress. EYES: PERRL, EOMI. Anicteric. HENT: Moist mucous membranes. LUNGS: Clear to auscultation bilaterally. CARDIOVASCULAR: Regular rate and rhythm. ABDOMEN: Soft, nontender and nondistended. EXTREMITIES: No edema. NEUROLOGIC: No focal neurological deficits. SKIN: Warm, dry. laboratory and microbiology Laboratory Tests 06/17/25 05:18 Test 06/17/25 05:18 Range/Units Serum Glucose 177 H 74-106 mg/dL Problem List NSTEMI. Symptomatic bradycardia. Transient AFib on anticoagulation. Acute on chronic diastolic HF (HFpEF). Severe pulmonary hypertension. Severe aortic stenosis, s/p TAVR. Hypertension. COPD. Obesity. Assessment/Plan Continued all current supportive medical care. Amlodipine. IV antibiotics as ordered. IV Hydralazine for SBP >150. Hydralazine. Imdur. IVFs. PPM insertion. Risks and benefits discussed with the patient. Additional plan as per the hospital course. Dietary Evaluation Review Comments: Nutrition Recommendaiton 1) MVI 1 tab daily 2) Monitor PO intake, lab values, weight trend, and I/O Expected Outcomes/Goals: Lab values to improve Fu 3-5 days Plan discussed with: Patient CHELY SUMNER MD Jun 17, 2025 21:29
--- NOTE | 2025-06-17 21:30 | DVHPN2 ---
Progress Note - Dictate Date Seen: Jun 17, 2025 Medical Necessity Reason Pt with a Central, PICC or Fol: No Subjective Patient was seen and evaluated in follow up. No overnight events. Patient remains on 3 LPM NC. Patient continues to be bradycardia, HR in the 40s. Patient is scheduled for PPM today. Patient NPO for procedure. Telemetry reviewed. vital signs Vital Sign Date Time Temp Pulse Resp B/P (MAP) Pulse Ox O2 Delivery O2 Flow Rate FiO2 06/17/25 13:03 40 16 98 06/17/25 13:00 98.4 147/52 (83) 98.4 06/17/25 08:14 Nasal Cannula* 3 32 Total Intake and Output 06/16/25 06/16/25 06/17/25 15:00 23:00 07:00 Intake Total 50 ml 715 ml 500 ml Output Total 1300 ml 900 ml Balance 50 ml -585 ml -400 ml medications Current Medications Medications Dose Ordered Sig/Payam Route Start Time Stop Time Status Last Admin Dose Admin Ceftriaxone Sodium 50 ml @ 100 mls/hr DAILY IV 06/11/25 19:45 06/17/25 10:18 100 MLS/HR Sodium Chloride 10 ml Q8HR IV 06/11/25 22:00 06/17/25 14:28 10 ML Docusate Sodium 100 mg BIDPRN PRN PO 06/11/25 19:45 Acetaminophen 650 mg Q6HP PRN PO 06/11/25 19:45 06/15/25 21:51 650 MG Ondansetron HCl 4 mg Q4HP PRN IV 06/11/25 19:45 Hydralazine HCl 10 mg Q6HP PRN IV 06/12/25 15:30 Hydralazine HCl 25 mg BID PO 06/12/25 22:00 06/16/25 09:42 25 MG Amlodipine Besylate 5 mg DAILY PO 06/13/25 10:00 06/16/25 09:42 5 MG Isosorbide Mononitrate 60 mg DAILY PO 06/13/25 10:00 06/16/25 09:42 60 MG Azithromycin 500 mg DAILY PO 06/15/25 10:00 06/17/25 10:18 500 MG Allopurinol 100 mg DAILY PO 06/15/25 10:00 06/17/25 10:18 100 MG Albuterol 2.5 mg Q6H NEB 06/16/25 12:00 06/17/25 12:53 2.5 MG Methylprednisolone Sodium Succinate 40 mg BID IV 06/16/25 22:00 06/17/25 10:18 40 MG Carbamide Peroxide 5 drop Q12HR LEFT EAR 06/16/25 22:00 06/17/25 10:18 5 DROP Albuterol 2.5 mg Q4HPRN PRN [facility] 06/16/25 11:30 objective GENERAL: Alert and oriented x 3. No acute distress. EYES: PERRL, EOMI. Anicteric. HENT: Moist mucous membranes. LUNGS: Clear to auscultation bilaterally. CARDIOVASCULAR: Regular rate and rhythm. ABDOMEN: Soft, nontender and nondistended. EXTREMITIES: No edema. NEUROLOGIC: No focal neurological deficits. SKIN: Warm, dry. laboratory and microbiology Laboratory Tests 06/17/25 05:18 Test 06/17/25 05:18 Range/Units Serum Glucose 177 H 74-106 mg/dL Problem List NSTEMI. Symptomatic bradycardia. Transient AFib on anticoagulation. Acute on chronic diastolic HF (HFpEF). Severe pulmonary hypertension. Severe aortic stenosis, s/p TAVR. Hypertension. COPD. Obesity. Assessment/Plan Continued all current supportive medical care. Amlodipine. IV antibiotics as ordered. IV Hydralazine for SBP >150. Hydralazine. Imdur. IVFs. Additional plan as per the hospital course. Dietary Evaluation Review Comments: Nutrition Recommendaiton 1) MVI 1 tab daily 2) Monitor PO intake, lab values, weight trend, and I/O Expected Outcomes/Goals: Lab values to improve Fu 3-5 days Plan discussed with: Patient CHELY SUMNER MD Jun 17, 2025 21:30
--- NOTE | 2025-06-17 23:45 | ECG ---
[facility] Test Date: 2025-06-17 Test Time: 23:43:21 Pat Name: KEN BENTLEY Department: Respiratoy Room: 0294T A Gender: F [employer] Lead: AT : 1940 Requested By: CHELY SUMNER Order Number: [id number] Reading MD: Farooq Jarquin Measurements Intervals [place] Rate: 70 P: -3 [place]: 215 QRS: -68 QRSD: 151 T: 93 QT: 486 QTc: 525 Interpretive Statements Atrial-sensed ventricular-paced rhythm No further analysis attempted due to paced rhythm Electronically Signed On 06-21-2025 18:41:05 PDT by Farooq Jarquin Please click the below link to view image of tracing.
--- NOTE | 2025-06-17 23:53 | DVH ---
CHEST RADIOGRAPH Indication: S/P PACEMAKER Technique: 1 view Comparison: XY CHEST PORTABLE on DOS: 06/15/25, XY CHEST PORTABLE on DOS: 06/11/25, XY CHEST PORTABLE on DOS: 02/27/24, XY CHEST PORTABLE on DOS: 02/21/24, CT CHEST WITHOUT CONTRAST on DOS: 02/11/23 FINDINGS: Heterogeneously dense material overlying the left shoulder, axilla and chest. Lines and Tubes: Left implanted cardiac device with leads terminating over the right atrial appendage and right ventricle. Lungs: Bilateral interstitial prominence. No focal consolidation. Pleura: No large effusion or pneumothorax. Cardiomediastinal contours: Unremarkable. Other: No acute osseous abnormality. IMPRESSION: 1. Mild heart failure pattern similar to 2 days prior. 2. Intervally placed cardiac device with expected positioning.
[2025-06-18] VITALS (15 sets, daily range): BP systolic 99–150; BP diastolic 53–85; PULSE 70–86; RESP 16–22; TEMP 97.8–98.8; O2SAT 96–99
--- NOTE | 2025-06-18 00:01 | DVHOP ---
DATE OF SURGERY: 06/17/2025 TECHNIQUE PERFORMED: 1. Emergency case. 2. Left subclavian venography. 3. Fluoroscopic guidance and supervision. 4. Management of the conscious sedation. 5. Implantation of a dual chamber permanent pacemaker from the left subclavian region under fluoroscopic guidance. 6. Interrogation of the device. COMPLICATIONS: None. ASSISTANTS: Assisted by the staff here is: Juany and Henri. INDICATIONS: The patient had advanced heart block, heart rate dropping down to 20. DESCRIPTION OF PROCEDURE: In a standard manner, risks and benefits discussed. The patient was brought to our labor service representative. The left femoral area thoroughly cleaned with soap and Betadine. Lidocaine was given. Venography was done. A venous line has been obtained under fluoroscopy guidance. An incision was made 2 inches semi-horizontally. A 9-Greek venous sheath was passed. Dilator was removed. Ventricular lead was passed, screwed in very well. Subsequently, a 7-Greek venous lead was passed. Atrial lead was passed, screwed in very well. Both atrial and ventricular leads have been individually sutured with Ethibond. Pulse generator applied, screwed in very well, put under subcutaneous pocket. Antibiotic powder was applied. An antibiotic sleeve applied. Prior to that, the whole area was cleaned with antibiotic solution. Subsequently, we used 2-0 Vicryl, 3-0 and 4-0 Monocryl and subsequently the Dermabond, the whole wound has been very well closed without any problem. We have following report available, the right atrium is 6.4, pacing impedance 608, threshold 1.25 at 0.4 ms, right ventricle 4.8, pacing impedance 551, threshold 0.5 at 0.4 ms. The procedure went well. PLAN OF ACTION: Doxycycline for the next 2-week period and advised to remove the dressing 3 weeks. The patient is following Dr. Thomas. Dr. Thomas is going to follow the patient and advised not to wet the dressing and keep the left arm in a sling for 3 weeks. Tomas Ayala MD MP/MATTHEW TID: [id number] RECEIPT: [id number]
[2025-06-18 06:37] LABS: Hematocrit 31.0 % (36.0-46.0); Hemoglobin 10.2 g/dL (12.2-16.2); Mean Corpuscular Hemoglobin 31.0 pg (28.0-32.0); Mean Corpuscular Volume 94.2 fL (80.0-100.0); Nucleated Red Blood Cells % 0.0 %
[2025-06-18 06:49] LABS: Chloride 102 mmol/L (98-107); Potassium 4.5 mmol/L (3.5-5.1); Sodium 140 mmol/L (136-145)
[2025-06-18 06:50] LABS: Anion Gap 12 (5-15); Carbon Dioxide 26 mmol/L (20-31)
[2025-06-18 06:51] LABS: Calcium 8.9 mg/dL (8.7-10.4)
[2025-06-18 06:55] LABS: BUN/Creatinine Ratio 48.2 (10.0-20.0)
[2025-06-18 06:57] LABS: Glucose 201 mg/dL (74-106)
[2025-06-18 06:58] LABS: Blood Urea Nitrogen 106 mg/dL (9-23)
--- NOTE | 2025-06-18 07:40 | ECG ---
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
--- NOTE | 2025-06-18 08:11 | ECG ---
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
--- NOTE | 2025-06-18 08:47 | DVH ---
CHEST RADIOGRAPH Indication: CXR FOR PACEMAKER/ICD LEAD PLACEMENT Technique: Single frontal view of the chest was obtained COMPARISON: XY CHEST PORTABLE on DOS: 06/17/25, XY CHEST PORTABLE on DOS: 06/15/25, XY CHEST PORTABLE on DOS: 06/11/25, XY CHEST PORTABLE on DOS: 02/27/24, XY CHEST PORTABLE on DOS: 02/21/24 FINDINGS: Lines and Tubes: Left chest pacemaker Lungs: Congestion Pleura: No effusion. No pneumothorax. Cardiomediastinal contours: Unremarkable Bones: Unremarkable IMPRESSION: Increased interstital prominence. This may represent pulmonary vascular congestion or viral pneumonia . Clinical correlation advised.
[2025-06-18] MEDS: ceFAZolin 1GM/50ML 50 ML IV SCH (09:58)
[2025-06-18] MEDS: DOXYCYCLINE 100 MG TAB/CAP PO SCH (09:59)
[2025-06-18] MEDS: MORPHINE SULFATE INJ 2 MG/ml SYRG IV PRN (11:13)
--- NOTE | 2025-06-18 12:03 | DVHPN2 ---
Progress Note Date Seen: Jun 18, 2025 Medical Necessity Reason Pt with a Central, PICC or Fol: No Subjective Changes from previous H/P or p: No Changes Objective vital signs Vital Sign Date Time Temp Pulse Resp B/P (MAP) Pulse Ox O2 Delivery O2 Flow Rate FiO2 06/18/25 11:13 74 20 134/53 06/18/25 09:00 98.2 96 98.2 06/18/25 07:58 Nasal Cannula* 3 32 Total Intake and Output 06/17/25 06/17/25 06/18/25 15:00 23:00 07:00 Intake Total 50 ml 0 ml 560 ml Output Total 450 ml 500 ml Balance 50 ml -450 ml 60 ml medications Current Medications Medications Dose Ordered Sig/Payam Route Start Time Stop Time Status Last Admin Dose Admin Sodium Chloride 10 ml Q8HR IV 06/11/25 22:00 06/18/25 11:43 10 ML Docusate Sodium 100 mg BIDPRN PRN PO 06/11/25 19:45 Acetaminophen 650 mg Q6HP PRN PO 06/11/25 19:45 06/15/25 21:51 650 MG Ondansetron HCl 4 mg Q4HP PRN IV 06/11/25 19:45 Hydralazine HCl 10 mg Q6HP PRN IV 06/12/25 15:30 Hydralazine HCl 25 mg BID PO 06/12/25 22:00 06/18/25 00:00 25 MG Amlodipine Besylate 5 mg DAILY PO 06/13/25 10:00 06/18/25 09:59 5 MG Isosorbide Mononitrate 60 mg DAILY PO 06/13/25 10:00 06/18/25 09:59 60 MG Allopurinol 100 mg DAILY PO 06/15/25 10:00 06/18/25 09:59 100 MG Albuterol 2.5 mg Q6H NEB 06/16/25 12:00 06/18/25 07:24 2.5 MG Methylprednisolone Sodium Succinate 40 mg BID IV 06/16/25 22:00 06/18/25 09:58 40 MG Carbamide Peroxide 5 drop Q12HR LEFT EAR 06/16/25 22:00 06/18/25 09:58 5 DROP Albuterol 2.5 mg Q4HPRN PRN NEB 06/16/25 11:30 Doxycycline Monohydrate 100 mg Q12HR PO 06/18/25 10:00 06/18/25 09:59 100 MG Cefazolin Sodium 50 ml @ 100 mls/hr Q12HR IV 06/18/25 10:00 06/18/25 09:58 100 MLS/HR Oxycodone HCl 5 mg Q6HP PRN PO 06/18/25 11:00 Morphine Sulfate 1 mg Q6HP PRN IV 06/18/25 11:00 06/18/25 11:13 1 MG Examination: GENERAL:Normal, LUNGS:Abnormal, CVS:Abnormal, SKIN:Normal laboratory and microbiology Laboratory Tests 06/18/25 05:17 Test 06/18/25 05:17 Range/Units Serum Glucose 201 H 74-106 mg/dL Microbiology Date/Time Source Procedure Growth Status 06/11/25 12:30 Blood Blood Culture - Final NO GROWTH AFTER 5 DAYS OF INCUBATION. Complete Problem List/Assessment/Plan Problem List/Assessment/Plan 85-year-old female past medical chronic kidney disease and aortic valve disease presents with shortness of breath Acute kidney injury suspect in the setting of cardiorenal syndrome and hemodynamics Chronic kidney disease stage 3 a, Dr. 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 --> HR 30s-40s History of TAVR no acute changes noted from renal standpoint. will continue treatment plan pending PPM diuretics on hold Azotemia due to catabolism and steroids Treatment of pneumonia Cardiology Patient has very guarded renal prognosis with very high-risk Plan discussed with: Patient Dietary Evaluation Review Comments: Nutrition Recommendaiton 1) MVI 1 tab daily 2) Monitor PO intake, lab values, weight trend, and I/O Expected Outcomes/Goals: Lab values to improve Fu 3-5 days Total Time (mins): 33 GREG HA MD Jun 18, 2025 12:03
--- NOTE | 2025-06-18 17:42 | DVHPN2 ---
Subjective Patient continues to report having chest pain Reviewed: Care Plan Changes from previous H/P or p: No Changes General: Per HPI Objective Vitals Vital Signs Date Time Temp Pulse Resp B/P (MAP) Pulse Ox O2 Delivery O2 Flow Rate FiO2 06/18/25 13:00 98.1 79 22 121/63 (82) 98 98.1 06/18/25 12:48 Nasal Cannula* 3 32 Intake/Output Intake and Output 06/18/25 07:00 Intake Total 610 ml Output Total 950 ml Balance -340 ml Intake Oral 560 ml IV Total 50 ml Output Urine Total 950 ml General Appearance: Alert, Oriented X3, Cooperative Lungs: Other (bilateral wheezing ) Chest/Breasts: Other (Left upper chest surgical site dry and intact.) Cardiovascular: Regular rate, Normal S1, Normal S2 Abdomen: Normal bowel sounds, Soft, No tenderness, No hepatospenomegaly Musculoskeletal: Normal sensory function, Normal motor function Neuro: Normal speech, Strength at 5/5 X4 ext, Normal tone, Sensation intact, C ranial nerves 3-12 NL Psych/Mental Status: Mental status NL Medications Current Medications Medications Dose Ordered Sig/Payam Route Start Time Stop Time Status Last Admin Dose Admin Sodium Chloride 10 ml Q8HR IV 06/11/25 22:00 06/18/25 11:43 10 ML Docusate Sodium 100 mg BIDPRN PRN PO 06/11/25 19:45 Acetaminophen 650 mg Q6HP PRN PO 06/11/25 19:45 06/15/25 21:51 650 MG Ondansetron HCl 4 mg Q4HP PRN IV 06/11/25 19:45 Hydralazine HCl 10 mg Q6HP PRN IV 06/12/25 15:30 Hydralazine HCl 25 mg BID PO 06/12/25 22:00 06/18/25 00:00 25 MG Amlodipine Besylate 5 mg DAILY PO 06/13/25 10:00 06/18/25 09:59 5 MG Isosorbide Mononitrate 60 mg DAILY PO 06/13/25 10:00 06/18/25 09:59 60 MG Allopurinol 100 mg DAILY PO 06/15/25 10:00 06/18/25 09:59 100 MG Albuterol 2.5 mg Q6H NEB 06/16/25 12:00 06/18/25 12:52 2.5 MG Methylprednisolone Sodium Succinate 40 mg BID IV 06/16/25 22:00 06/18/25 09:58 40 MG Carbamide Peroxide 5 drop Q12HR LEFT EAR 06/16/25 22:00 06/18/25 09:58 5 DROP Albuterol 2.5 mg Q4HPRN PRN NEB 06/16/25 11:30 Doxycycline Monohydrate 100 mg Q12HR PO 06/18/25 10:00 06/18/25 09:59 100 MG Cefazolin Sodium 50 ml @ 100 mls/hr Q12HR IV 06/18/25 10:00 06/18/25 09:58 100 MLS/HR Oxycodone HCl 5 mg Q6HP PRN PO 06/18/25 11:00 Morphine Sulfate 1 mg Q6HP PRN IV 06/18/25 11:00 06/18/25 11:13 1 MG Laboratory Results Laboratory Tests 06/18/25 05:17 Chemistry Test 06/18/25 05:17 Calcium Level 8.9 mg/dL (8.7-10.4) Urinalysis Test 06/11/25 17:00 Urine Color Colorless (Yellow) Urine Clarity Clear (Clear) Urine pH 5.5 (5.0-9.0) Urine Specific [place] 1.007 (1.001-1.035) Urine Protein Negative (Negative) Urine Ketones Negative (Negative) Urine Blood Negative /uL (Negative) Urine Nitrite Negative (Negative) Urine Bilirubin Negative (Negative) Urine Urobilinogen Normal mg/dL (Negative) Urine Leukocyte Esterase Negative /uL (Negative) Urine RBC 1 /hpf (0 - 4) Urine Microscopic WBC 2 /HPF (0-5) Urine Squamous Epithelial Cells Few /hpf (<5) Urine Bacteria Few /hpf (None Seen) H Urine Glucose Normal mg/dL (Normal) Microbiology Microbiology Date/Time Source Procedure Growth Status 06/11/25 12:30 Blood Blood Culture - Final NO GROWTH AFTER 5 DAYS OF INCUBATION. Complete Labs and/or images reviewed: Labs reviewed by me, Image(s) reviewed by me Assessment/Plan Assessment/Plan Impression: -acute hypoxic respiratory failure -acute on chronic diastolic heart failure -pulmonary hypertension -atrial flutter with persistent bradycardia -primary hypertension -obesity -acute on chronic renal failure with questionable vasomotor nephropathy -status post TAVR -COPD with exacerbation -rule out community-acquired pneumonia, Gram-positive/Gram-negative etiology -left ear wax Plan: -O2 supplementation to keep saturation greater than 90% -patient is status post PPI. Heart rate in the 80s. -stop steroids -continue antibiotics -bronchodilators -pain management -consultations: Cardiology, Nephrology -repeat labs in a.m. Total time spent with patient discussing and formulating plan of care: 35 minutes. This medical document was created using an electronic medical record system with [employer] dictation system. Although this document has been carefully reviewed, there may still be some phonetic and typographical errors. These areas are purely typographical due to imperfections of the software programs, and do not reflect any compromise in the patient's medical care. Plan discussed with: Patient, Other (RN) My Orders Orders - JEREMY KELLY NP Procedure Category Date Status Time Oxycodone Immediate PHA 06/18/25 In Process Rel Tablet 11:00 Morphine Sulfate PHA 06/18/25 In Process Injection 11:00 Date of Service: Jun 18, 2025 Billing Provider: JEREMY KELLY NP Common Visit Codes: [id number] INP/OBS CARE(HIGH) JEREMY KELLY NP Jun 18, 2025 17:41
--- NOTE | 2025-06-18 21:52 | DVHPN2 ---
Progress Note - Dictate Date Seen: Jun 18, 2025 Medical Necessity Reason Pt with a Central, PICC or Fol: No Subjective Patient was seen and evaluated in follow up. Patient remains on 3 LPM NC. 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 Patient advised for Doxycycline for the next 2-week period and advised to remove the dressing 3 weeks. The patient is following Dr. Thomas. Dr. Thomas is going to follow the patient and advised not to wet the dressing and keep the left arm in a sling for 3 weeks. Telemetry reviewed. vital signs Vital Sign Date Time Temp Pulse Resp B/P (MAP) Pulse Ox O2 Delivery O2 Flow Rate FiO2 06/18/25 18:38 83 16 99 06/18/25 18:32 Nasal Cannula* 3 32 06/18/25 17:00 98.8 99/60 (73) 98.8 Total Intake and Output 06/17/25 06/17/25 06/18/25 15:00 23:00 07:00 Intake Total 50 ml 0 ml 560 ml Output Total 450 ml 500 ml Balance 50 ml -450 ml 60 ml medications Current Medications Medications Dose Ordered Sig/Payam Route Start Time Stop Time Status Last Admin Dose Admin Sodium Chloride 10 ml Q8HR IV 06/11/25 22:00 06/18/25 11:43 10 ML Docusate Sodium 100 mg BIDPRN PRN PO 06/11/25 19:45 Acetaminophen 650 mg Q6HP PRN PO 06/11/25 19:45 06/15/25 21:51 650 MG Ondansetron HCl 4 mg Q4HP PRN IV 06/11/25 19:45 Hydralazine HCl 10 mg Q6HP PRN IV 06/12/25 15:30 Hydralazine HCl 25 mg BID PO 06/12/25 22:00 06/18/25 00:00 25 MG Amlodipine Besylate 5 mg DAILY PO 06/13/25 10:00 06/18/25 09:59 5 MG Isosorbide Mononitrate 60 mg DAILY PO 06/13/25 10:00 06/18/25 09:59 60 MG Allopurinol 100 mg DAILY PO 06/15/25 10:00 06/18/25 09:59 100 MG Albuterol 2.5 mg Q6H NEB 06/16/25 12:00 06/18/25 18:32 2.5 MG Carbamide Peroxide 5 drop Q12HR LEFT EAR 06/16/25 22:00 06/18/25 09:58 5 DROP Albuterol 2.5 mg Q4HPRN PRN NEB 06/16/25 11:30 Doxycycline Monohydrate 100 mg Q12HR PO 06/18/25 10:00 06/18/25 09:59 100 MG Cefazolin Sodium 50 ml @ 100 mls/hr Q12HR IV 06/18/25 10:00 06/18/25 09:58 100 MLS/HR Oxycodone HCl 5 mg Q6HP PRN PO 06/18/25 11:00 06/18/25 19:35 5 MG Morphine Sulfate 1 mg Q6HP PRN IV 06/18/25 11:00 06/18/25 11:13 1 MG objective GENERAL: Alert and oriented x 3. No acute distress. EYES: PERRL, EOMI. Anicteric. HENT: Moist mucous membranes. LUNGS: Clear to auscultation bilaterally. CARDIOVASCULAR: Regular rate and rhythm. ABDOMEN: Soft, nontender and nondistended. EXTREMITIES: No edema. NEUROLOGIC: No focal neurological deficits. SKIN: Warm, dry. laboratory and microbiology Laboratory Tests 06/18/25 05:17 Test 06/18/25 05:17 Range/Units Serum Glucose 201 H 74-106 mg/dL Problem List NSTEMI. Symptomatic bradycardia. Transient AFib on anticoagulation. Acute on chronic diastolic HF (HFpEF). Severe pulmonary hypertension. Severe aortic stenosis, s/p TAVR. Hypertension. COPD. Obesity. Assessment/Plan Continued all current supportive medical care. Amlodipine. IV antibiotics as ordered. Doxycycline x 2 weeks. Advised not to wet the dressing and keep the left arm in a sling for 3 weeks. Remove the dressing in 3 weeks. Follow up with Dr. Thomas. Dr. Thomas is going IV Hydralazine for SBP >150. Hydralazine. Imdur. IVFs. Additional plan as per the hospital course. Dietary Evaluation Review Comments: Nutrition Recommendaiton 1) MVI 1 tab daily 2) Monitor PO intake, lab values, weight trend, and I/O Expected Outcomes/Goals: Lab values to improve Fu 3-5 days Plan discussed with: Patient CHELY SUMNER MD Jun 18, 2025 21:52
[2025-06-19] VITALS (18 sets, daily range): BP systolic 115–143; BP diastolic 40–89; PULSE 63–79; RESP 16–20; TEMP 97.7–98.1; O2SAT 96–100
--- NOTE | 2025-06-19 10:40 | DVHPN2 ---
Progress Note Date Seen: Jun 19, 2025 Medical Necessity Reason Pt with a Central, PICC or Fol: No Subjective Patient reports: Feels better Objective vital signs Vital Sign Date Time Temp Pulse Resp B/P (MAP) Pulse Ox O2 Delivery O2 Flow Rate FiO2 06/19/25 09:44 126/56 06/19/25 09:00 98.1 79 17 97 98.1 06/19/25 08:17 Nasal Cannula* 3 32 Total Intake and Output 06/18/25 06/18/25 06/19/25 15:00 23:00 07:00 Intake Total 50 ml 800 ml 440 ml Output Total 615 ml 800 ml Balance 50 ml 185 ml -360 ml medications Current Medications Medications Dose Ordered Sig/Payam Route Start Time Stop Time Status Last Admin Dose Admin Sodium Chloride 10 ml Q8HR IV 06/11/25 22:00 06/19/25 06:00 10 ML Docusate Sodium 100 mg BIDPRN PRN PO 06/11/25 19:45 Acetaminophen 650 mg Q6HP PRN PO 06/11/25 19:45 06/15/25 21:51 650 MG Ondansetron HCl 4 mg Q4HP PRN IV 06/11/25 19:45 Hydralazine HCl 10 mg Q6HP PRN IV 06/12/25 15:30 Hydralazine HCl 25 mg BID PO 06/12/25 22:00 06/18/25 22:30 25 MG Amlodipine Besylate 5 mg DAILY PO 06/13/25 10:00 06/18/25 09:59 5 MG Isosorbide Mononitrate 60 mg DAILY PO 06/13/25 10:00 06/18/25 09:59 60 MG Allopurinol 100 mg DAILY PO 06/15/25 10:00 06/18/25 09:59 100 MG Albuterol 2.5 mg Q6H NEB 06/16/25 12:00 06/19/25 05:41 2.5 MG Carbamide Peroxide 5 drop Q12HR LEFT EAR 06/16/25 22:00 06/18/25 22:33 5 DROP Albuterol 2.5 mg Q4HPRN PRN NEB 06/16/25 11:30 Doxycycline Monohydrate 100 mg Q12HR PO 06/18/25 10:00 06/19/25 10:03 100 MG Cefazolin Sodium 50 ml @ 100 mls/hr Q12HR IV 06/18/25 10:00 06/19/25 10:03 100 MLS/HR Oxycodone HCl 5 mg Q6HP PRN PO 06/18/25 11:00 06/19/25 05:13 5 MG Morphine Sulfate 1 mg Q6HP PRN IV 06/18/25 11:00 06/18/25 11:13 1 MG Examination: GENERAL:Abnormal, HEENT:Abnormal, LUNGS:Abnormal, CVS:Abnormal, ABDOMEN:Abnormal laboratory and microbiology Laboratory Tests 06/18/25 05:17 Test 06/18/25 05:17 Range/Units Serum Glucose 201 H 74-106 mg/dL Microbiology Date/Time Source Procedure Growth Status 06/11/25 12:30 Blood Blood Culture - Final NO GROWTH AFTER 5 DAYS OF INCUBATION. Complete Problem List/Assessment/Plan Problem List/Assessment/Plan sp tavr diastolc advanced HF CKD advanced morbid obesity HTN pulm htn sp PPM for sick sinus/ intermittent 2: 1 block , on doxycycline for abx could add revatio, minimal help prob 2:1 av block, possible PPM for sinus rates 40s off BB, cont renal eval consider PT/OT placement if indicated d/w pt and MD [place] Plan discussed with: Patient Dietary Evaluation Review Comments: Nutrition Recommendaiton 1) MVI 1 tab daily 2) Monitor PO intake, lab values, weight trend, and I/O Expected Outcomes/Goals: Lab values to improve Fu 3-5 days Date of Service: Jun 19, 2025 Billing Provider: JENN TORRE MD Common Visit Codes: NOT BILLABLE JENN TORRE MD Jun 19, 2025 10:40
--- NOTE | 2025-06-19 15:39 | DVHPN2 ---
Progress Note Date Seen: Jun 19, 2025 Medical Necessity Reason Pt with a Central, PICC or Fol: No Subjective Patient reports: Feels better Objective vital signs Vital Sign Date Time Temp Pulse Resp B/P (MAP) Pulse Ox O2 Delivery O2 Flow Rate FiO2 06/19/25 13:00 97.8 68 20 134/68 (90) 98 97.8 06/19/25 11:15 Nasal Cannula* 3 32 Total Intake and Output 06/18/25 06/18/25 06/19/25 15:00 23:00 07:00 Intake Total 50 ml 800 ml 440 ml Output Total 615 ml 800 ml Balance 50 ml 185 ml -360 ml medications Current Medications Medications Dose Ordered Sig/Payam Route Start Time Stop Time Status Last Admin Dose Admin Sodium Chloride 10 ml Q8HR IV 06/11/25 22:00 06/19/25 06:00 10 ML Docusate Sodium 100 mg BIDPRN PRN PO 06/11/25 19:45 Acetaminophen 650 mg Q6HP PRN PO 06/11/25 19:45 06/15/25 21:51 650 MG Ondansetron HCl 4 mg Q4HP PRN IV 06/11/25 19:45 Hydralazine HCl 10 mg Q6HP PRN IV 06/12/25 15:30 Hydralazine HCl 25 mg BID PO 06/12/25 22:00 06/18/25 22:30 25 MG Amlodipine Besylate 5 mg DAILY PO 06/13/25 10:00 06/18/25 09:59 5 MG Isosorbide Mononitrate 60 mg DAILY PO 06/13/25 10:00 06/18/25 09:59 60 MG Allopurinol 100 mg DAILY PO 06/15/25 10:00 06/19/25 11:09 100 MG Albuterol 2.5 mg Q6H NEB 06/16/25 12:00 06/19/25 11:15 2.5 MG Carbamide Peroxide 5 drop Q12HR LEFT EAR 06/16/25 22:00 06/19/25 11:10 5 DROP Albuterol 2.5 mg Q4HPRN PRN NEB 06/16/25 11:30 Doxycycline Monohydrate 100 mg Q12HR PO 06/18/25 10:00 06/19/25 10:03 100 MG Cefazolin Sodium 50 ml @ 100 mls/hr Q12HR IV 06/18/25 10:00 06/19/25 10:03 100 MLS/HR Oxycodone HCl 5 mg Q6HP PRN PO 06/18/25 11:00 06/19/25 05:13 5 MG Morphine Sulfate 1 mg Q6HP PRN IV 06/18/25 11:00 06/18/25 11:13 1 MG Examination: GENERAL:Abnormal, CVS:Abnormal, SKIN:Normal laboratory and microbiology Laboratory Tests 06/18/25 05:17 Test 06/18/25 05:17 Range/Units Serum Glucose 201 H 74-106 mg/dL Microbiology Date/Time Source Procedure Growth Status 06/11/25 12:30 Blood Blood Culture - Final NO GROWTH AFTER 5 DAYS OF INCUBATION. Complete Problem List/Assessment/Plan Problem List/Assessment/Plan 85-year-old female past medical chronic kidney disease and aortic valve disease presents with shortness of breath Acute kidney injury suspect in the setting of cardiorenal syndrome and hemodynamics Chronic kidney disease stage 3 a, Dr. 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 --> HR 30s-40s s/p PPM HR is better now History of TAVR PPM placed HR better steroids stopped expect BUN to decrease over the next 48 hrs diuretics on hold Treatment of pneumonia Cardiology cr has been stable, continue to monitor UOP Plan discussed with: Patient My Orders My Orders Orders - GREG HA MD Procedure Category Date Status Time Basic Metabolic Panel LAB 06/19/25 Logged 15:35 Basic Metabolic Panel LAB 06/20/25 Verified 04:00 Dietary Evaluation Review Comments: Nutrition Recommendaiton 1) MVI 1 tab daily 2) Monitor PO intake, lab values, weight trend, and I/O Expected Outcomes/Goals: Lab values to improve Fu 3-5 days Total Time (mins): 26 GREG HA MD Jun 19, 2025 15:39
[2025-06-19 16:32] LABS: Chloride 102 mmol/L (98-107); Potassium 4.3 mmol/L (3.5-5.1); Sodium 141 mmol/L (136-145)
[2025-06-19 16:33] LABS: Anion Gap 10 (5-15); Calcium 9.1 mg/dL (8.7-10.4); Carbon Dioxide 29 mmol/L (20-31)
[2025-06-19 16:38] LABS: BUN/Creatinine Ratio 47.1 (10.0-20.0)
[2025-06-19 16:40] LABS: Glucose 127 mg/dL (74-106)
[2025-06-19 16:41] LABS: Blood Urea Nitrogen 90 mg/dL (9-23)
--- NOTE | 2025-06-19 17:28 | DVHPN2 ---
Subjective Patient continues to report having chest pain Reviewed: Care Plan Changes from previous H/P or p: No Changes General: Per HPI Objective Vitals Vital Signs Date Time Temp Pulse Resp B/P (MAP) Pulse Ox O2 Delivery O2 Flow Rate FiO2 06/19/25 16:33 97.9 70 17 129/89 (102) 99 97.9 06/19/25 11:15 Nasal Cannula* 3 32 Intake/Output Intake and Output 06/19/25 07:00 Intake Total 1290 ml Output Total 1415 ml Balance -125 ml Intake Oral 1190 ml IV Total 100 ml Output Urine Total 1415 ml General Appearance: Alert, Oriented X3, Cooperative Lungs: Other Chest/Breasts: Other Cardiovascular: Regular rate, Normal S1, Normal S2 Abdomen: Normal bowel sounds, Soft, No tenderness, No hepatospenomegaly Musculoskeletal: Normal sensory function, Normal motor function Neuro: Normal speech, Strength at 5/5 X4 ext, Normal tone, Sensation intact, C ranial nerves 3-12 NL Skin: Dry, Intact Psych/Mental Status: Mental status NL Medications Current Medications Medications Dose Ordered Sig/Payam Route Start Time Stop Time Status Last Admin Dose Admin Sodium Chloride 10 ml Q8HR IV 06/11/25 22:00 06/19/25 15:44 10 ML Docusate Sodium 100 mg BIDPRN PRN PO 06/11/25 19:45 Acetaminophen 650 mg Q6HP PRN PO 06/11/25 19:45 06/15/25 21:51 650 MG Ondansetron HCl 4 mg Q4HP PRN IV 06/11/25 19:45 Hydralazine HCl 10 mg Q6HP PRN IV 06/12/25 15:30 Hydralazine HCl 25 mg BID PO 06/12/25 22:00 06/18/25 22:30 25 MG Amlodipine Besylate 5 mg DAILY PO 06/13/25 10:00 06/18/25 09:59 5 MG Isosorbide Mononitrate 60 mg DAILY PO 06/13/25 10:00 06/18/25 09:59 60 MG Allopurinol 100 mg DAILY PO 06/15/25 10:00 06/19/25 11:09 100 MG Albuterol 2.5 mg Q6H NEB 06/16/25 12:00 06/19/25 11:15 2.5 MG Carbamide Peroxide 5 drop Q12HR LEFT EAR 06/16/25 22:00 06/19/25 11:10 5 DROP Albuterol 2.5 mg Q4HPRN PRN NEB 06/16/25 11:30 Doxycycline Monohydrate 100 mg Q12HR PO 06/18/25 10:00 06/19/25 10:03 100 MG Cefazolin Sodium 50 ml @ 100 mls/hr Q12HR IV 06/18/25 10:00 06/19/25 10:03 100 MLS/HR Oxycodone HCl 5 mg Q6HP PRN PO 06/18/25 11:00 06/19/25 05:13 5 MG Morphine Sulfate 1 mg Q6HP PRN IV 06/18/25 11:00 06/18/25 11:13 1 MG Laboratory Results Laboratory Tests 06/18/25 05:17 06/19/25 16:11 Chemistry Test 06/19/25 16:11 Calcium Level 9.1 mg/dL (8.7-10.4) Urinalysis Test 06/11/25 17:00 Urine Color Colorless (Yellow) Urine Clarity Clear (Clear) Urine pH 5.5 (5.0-9.0) Urine Specific [place] 1.007 (1.001-1.035) Urine Protein Negative (Negative) Urine Ketones Negative (Negative) Urine Blood Negative /uL (Negative) Urine Nitrite Negative (Negative) Urine Bilirubin Negative (Negative) Urine Urobilinogen Normal mg/dL (Negative) Urine Leukocyte Esterase Negative /uL (Negative) Urine RBC 1 /hpf (0 - 4) Urine Microscopic WBC 2 /HPF (0-5) Urine Squamous Epithelial Cells Few /hpf (<5) Urine Bacteria Few /hpf (None Seen) H Urine Glucose Normal mg/dL (Normal) Microbiology Microbiology Date/Time Source Procedure Growth Status 06/11/25 12:30 Blood Blood Culture - Final NO GROWTH AFTER 5 DAYS OF INCUBATION. Complete Labs and/or images reviewed: Labs reviewed by me, Image(s) reviewed by me Assessment/Plan Assessment/Plan Impression: -acute hypoxic respiratory failure -acute on chronic diastolic heart failure -pulmonary hypertension -atrial flutter with persistent bradycardia -primary hypertension -obesity -acute on chronic renal failure with questionable vasomotor nephropathy -status post TAVR -COPD with exacerbation -rule out community-acquired pneumonia, Gram-positive/Gram-negative etiology -left ear wax Plan: Events: No events overnight. Clinically improving. Renal function improving -physical therapy -O2 supplementation to keep saturation greater than 90% -patient is status post PPI. Heart rate in the 80s. -continue antibiotics -bronchodilators -pain management -consultations: Cardiology, Nephrology -repeat labs in a.m. Total time spent with patient discussing and formulating plan of care: 35 minutes. This medical document was created using an electronic medical record system with [employer] dictation system. Although this document has been carefully reviewed, there may still be some phonetic and typographical errors. These areas are purely typographical due to imperfections of the software programs, and do not reflect any compromise in the patient's medical care. Plan discussed with: Patient, Other (RN) My Orders Orders - JEREMY KELLY NP Procedure Category Date Status Time Chest Portable XY 06/20/25 Logged 04:00 Complete Blood Count LAB 06/20/25 Verified 04:00 Pt Request For Service PT 06/19/25 Logged 17:08 Date of Service: Jun 19, 2025 Billing Provider: JEREMY KELLY NP Common Visit Codes: [id number] INP/OBS CARE(HIGH) JEREMY KELLY NP Jun 19, 2025 17:28
--- NOTE | 2025-06-19 21:10 | DVHPN2 ---
Progress Note - Dictate Date Seen: Jun 19, 2025 Medical Necessity Reason Pt with a Central, PICC or Fol: No Subjective Patient was seen and evaluated in follow up. No overnight events. Patient remains on 3 LPM NC. Patient reports feeling better today. BUN 90, Side Door Worker 1.91. Pending PT eval. Telemetry reviewed. vital signs Vital Sign Date Time Temp Pulse Resp B/P (MAP) Pulse Ox O2 Delivery O2 Flow Rate FiO2 06/19/25 19:20 78 16 100 06/19/25 19:14 Nasal Cannula 3.0 06/19/25 19:14 32 06/19/25 16:33 97.9 129/89 (102) 97.9 Total Intake and Output 06/18/25 06/18/25 06/19/25 15:00 23:00 07:00 Intake Total 50 ml 800 ml 440 ml Output Total 615 ml 800 ml Balance 50 ml 185 ml -360 ml medications Current Medications Medications Dose Ordered Sig/Payam Route Start Time Stop Time Status Last Admin Dose Admin Sodium Chloride 10 ml Q8HR IV 06/11/25 22:00 06/19/25 15:44 10 ML Docusate Sodium 100 mg BIDPRN PRN PO 06/11/25 19:45 Acetaminophen 650 mg Q6HP PRN PO 06/11/25 19:45 06/15/25 21:51 650 MG Ondansetron HCl 4 mg Q4HP PRN IV 06/11/25 19:45 Hydralazine HCl 10 mg Q6HP PRN IV 06/12/25 15:30 Hydralazine HCl 25 mg BID PO 06/12/25 22:00 06/18/25 22:30 25 MG Amlodipine Besylate 5 mg DAILY PO 06/13/25 10:00 06/18/25 09:59 5 MG Isosorbide Mononitrate 60 mg DAILY PO 06/13/25 10:00 06/18/25 09:59 60 MG Allopurinol 100 mg DAILY PO 06/15/25 10:00 06/19/25 11:09 100 MG Albuterol 2.5 mg Q6H NEB 06/16/25 12:00 06/19/25 19:14 2.5 MG Carbamide Peroxide 5 drop Q12HR LEFT EAR 06/16/25 22:00 06/19/25 11:10 5 DROP Albuterol 2.5 mg Q4HPRN PRN NEB 06/16/25 11:30 Doxycycline Monohydrate 100 mg Q12HR PO 06/18/25 10:00 06/19/25 10:03 100 MG Cefazolin Sodium 50 ml @ 100 mls/hr Q12HR IV 06/18/25 10:00 06/19/25 10:03 100 MLS/HR Oxycodone HCl 5 mg Q6HP PRN PO 06/18/25 11:00 06/19/25 05:13 5 MG Morphine Sulfate 1 mg Q6HP PRN IV 06/18/25 11:00 06/18/25 11:13 1 MG objective GENERAL: Alert and oriented x 3. No acute distress. EYES: PERRL, EOMI. Anicteric. HENT: Moist mucous membranes. LUNGS: Clear to auscultation bilaterally. CARDIOVASCULAR: Regular rate and rhythm. ABDOMEN: Soft, nontender and nondistended. EXTREMITIES: No edema. NEUROLOGIC: No focal neurological deficits. SKIN: Warm, dry. laboratory and microbiology Laboratory Tests 06/19/25 16:11 06/18/25 05:17 Test 06/19/25 16:11 Range/Units Serum Glucose 127 H 74-106 mg/dL Problem List NSTEMI. Symptomatic bradycardia. Transient AFib on anticoagulation. Acute on chronic diastolic HF (HFpEF). Severe pulmonary hypertension. Severe aortic stenosis, s/p TAVR. Hypertension. COPD. Obesity. Assessment/Plan Continued all current supportive medical care. Amlodipine. IV antibiotics as ordered. Doxycycline x 2 weeks. Advised not to wet the dressing and keep the left arm in a sling for 3 weeks. Remove the dressing in 3 weeks. Follow up with Dr. Thomas. Dr. Thomas is going IV Hydralazine for SBP >150. Hydralazine. Imdur. IVFs. Additional plan as per the hospital course. Dietary Evaluation Review Comments: Nutrition Recommendaiton 1) MVI 1 tab daily 2) Monitor PO intake, lab values, weight trend, and I/O Expected Outcomes/Goals: Lab values to improve Fu 3-5 days Plan discussed with: Patient CHELY SUMNER MD Jun 19, 2025 21:10
[2025-06-20] VITALS (17 sets, daily range): BP systolic 114–149; BP diastolic 42–76; PULSE 65–79; RESP 14–99; TEMP 97.9–98.5; O2SAT 96–100
[2025-06-20 07:30] LABS: Chloride 104 mmol/L (98-107); Potassium 4.3 mmol/L (3.5-5.1); Sodium 140 mmol/L (136-145)
[2025-06-20 07:31] LABS: Anion Gap 7 (5-15); Calcium 8.7 mg/dL (8.7-10.4); Carbon Dioxide 29 mmol/L (20-31); Hematocrit 31.9 % (36.0-46.0); Hemoglobin 10.7 g/dL (12.2-16.2); Mean Corpuscular Hemoglobin 31.4 pg (28.0-32.0); Mean Corpuscular Volume 93.8 fL (80.0-100.0); Nucleated Red Blood Cells % 0.0 %
[2025-06-20 07:36] LABS: BUN/Creatinine Ratio 32.8 (10.0-20.0); Glucose 97 mg/dL (74-106)
[2025-06-20 07:38] LABS: Blood Urea Nitrogen 60 mg/dL (9-23)
--- NOTE | 2025-06-20 11:48 | DVHPN2 ---
Progress Note Date Seen: Jun 20, 2025 Medical Necessity Reason Pt with a Central, PICC or Fol: No Subjective Patient reports: Feels better Objective vital signs Vital Sign Date Time Temp Pulse Resp B/P (MAP) Pulse Ox O2 Delivery O2 Flow Rate FiO2 06/20/25 09:39 148/75 06/20/25 08:39 97.9 69 18 98 97.9 06/20/25 08:18 Nasal Cannula* 2 28 Total Intake and Output 06/19/25 06/19/25 06/20/25 15:00 23:00 07:00 Intake Total 230 ml 990 ml 800 ml Output Total 450 ml 700 ml Balance 230 ml 540 ml 100 ml medications Current Medications Medications Dose Ordered Sig/Payam Route Start Time Stop Time Status Last Admin Dose Admin Sodium Chloride 10 ml Q8HR IV 06/11/25 22:00 06/20/25 05:13 10 ML Docusate Sodium 100 mg BIDPRN PRN PO 06/11/25 19:45 Acetaminophen 650 mg Q6HP PRN PO 06/11/25 19:45 06/20/25 04:09 650 MG Ondansetron HCl 4 mg Q4HP PRN IV 06/11/25 19:45 Hydralazine HCl 10 mg Q6HP PRN IV 06/12/25 15:30 Hydralazine HCl 25 mg BID PO 06/12/25 22:00 06/20/25 09:38 25 MG Amlodipine Besylate 5 mg DAILY PO 06/13/25 10:00 06/20/25 09:39 5 MG Isosorbide Mononitrate 60 mg DAILY PO 06/13/25 10:00 06/18/25 09:59 60 MG Allopurinol 100 mg DAILY PO 06/15/25 10:00 06/20/25 09:38 100 MG Albuterol 2.5 mg Q6H NEB 06/16/25 12:00 06/20/25 07:14 2.5 MG Carbamide Peroxide 5 drop Q12HR LEFT EAR 06/16/25 22:00 06/19/25 21:00 5 DROP Albuterol 2.5 mg Q4HPRN PRN NEB 06/16/25 11:30 Doxycycline Monohydrate 100 mg Q12HR PO 06/18/25 10:00 06/20/25 09:38 100 MG Cefazolin Sodium 50 ml @ 100 mls/hr Q12HR IV 06/18/25 10:00 06/20/25 09:37 100 MLS/HR Oxycodone HCl 5 mg Q6HP PRN PO 06/18/25 11:00 06/19/25 05:13 5 MG Morphine Sulfate 1 mg Q6HP PRN IV 06/18/25 11:00 06/18/25 11:13 1 MG Examination: GENERAL:Normal, CVS:Normal laboratory and microbiology Laboratory Tests 06/20/25 06:58 Test 06/20/25 06:58 Range/Units Serum Glucose 97 74-106 mg/dL Microbiology Date/Time Source Procedure Growth Status 06/11/25 12:30 Blood Blood Culture - Final NO GROWTH AFTER 5 DAYS OF INCUBATION. Complete Problem List/Assessment/Plan Problem List/Assessment/Plan 85-year-old female past medical chronic kidney disease and aortic valve disease presents with shortness of breath Acute kidney injury suspect in the setting of cardiorenal syndrome and hemodynamics Chronic kidney disease stage 3 a, Dr. 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
--- NOTE | 2025-06-20 12:43 | DVHPN2 ---
Progress Note Date Seen: Jun 20, 2025 Medical Necessity Reason Pt with a Central, PICC or Fol: No Subjective Patient reports: Feels better Objective vital signs Vital Sign Date Time Temp Pulse Resp B/P (MAP) Pulse Ox O2 Delivery O2 Flow Rate FiO2 06/20/25 12:27 98.5 74 20 142/42 (75) 99 98.5 06/20/25 08:18 Nasal Cannula* 2 28 Total Intake and Output 06/19/25 06/19/25 06/20/25 15:00 23:00 07:00 Intake Total 230 ml 990 ml 800 ml Output Total 450 ml 700 ml Balance 230 ml 540 ml 100 ml medications Current Medications Medications Dose Ordered Sig/Payam Route Start Time Stop Time Status Last Admin Dose Admin Sodium Chloride 10 ml Q8HR IV 06/11/25 22:00 06/20/25 05:13 10 ML Docusate Sodium 100 mg BIDPRN PRN PO 06/11/25 19:45 Acetaminophen 650 mg Q6HP PRN PO 06/11/25 19:45 06/20/25 04:09 650 MG Ondansetron HCl 4 mg Q4HP PRN IV 06/11/25 19:45 Hydralazine HCl 10 mg Q6HP PRN IV 06/12/25 15:30 Hydralazine HCl 25 mg BID PO 06/12/25 22:00 06/20/25 09:38 25 MG Amlodipine Besylate 5 mg DAILY PO 06/13/25 10:00 06/20/25 09:39 5 MG Isosorbide Mononitrate 60 mg DAILY PO 06/13/25 10:00 06/18/25 09:59 60 MG Allopurinol 100 mg DAILY PO 06/15/25 10:00 06/20/25 09:38 100 MG Albuterol 2.5 mg Q6H NEB 06/16/25 12:00 06/20/25 11:58 2.5 MG Carbamide Peroxide 5 drop Q12HR LEFT EAR 06/16/25 22:00 06/19/25 21:00 5 DROP Albuterol 2.5 mg Q4HPRN PRN NEB 06/16/25 11:30 Doxycycline Monohydrate 100 mg Q12HR PO 06/18/25 10:00 06/20/25 09:38 100 MG Cefazolin Sodium 50 ml @ 100 mls/hr Q12HR IV 06/18/25 10:00 06/20/25 09:37 100 MLS/HR Oxycodone HCl 5 mg Q6HP PRN PO 06/18/25 11:00 06/19/25 05:13 5 MG Morphine Sulfate 1 mg Q6HP PRN IV 06/18/25 11:00 06/18/25 11:13 1 MG Furosemide 40 mg DAILY PO 06/20/25 11:45 Examination: GENERAL:Abnormal, HEENT:Abnormal, LUNGS:Abnormal, CVS:Abnormal, ABDOMEN:Normal, ABDOMEN:Abnormal laboratory and microbiology Laboratory Tests 06/20/25 06:58 Test 06/20/25 06:58 Range/Units Serum Glucose 97 74-106 mg/dL Microbiology Date/Time Source Procedure Growth Status 06/11/25 12:30 Blood Blood Culture - Final NO GROWTH AFTER 5 DAYS OF INCUBATION. Complete Problem List/Assessment/Plan Problem List/Assessment/Plan sp tavr diastolc advanced HF CKD advanced morbid obesity HTN pulm htn sp PPM for sick sinus/ intermittent 2: 1 block , on doxycycline for abx could add revatio, minimal help prob 2:1 av block, possible PPM for sinus rates 40s off BB, cont renal eval--renal function much better now consider PT/OT placement if indicated Plan discussed with: Patient Dietary Evaluation Review Comments: Nutrition Recommendaiton 1) MVI 1 tab daily 2) Monitor PO intake, lab values, weight trend, and I/O Expected Outcomes/Goals: Lab values to improve Fu 3-5 days Date of Service: Jun 20, 2025 Billing Provider: JENN TORRE MD Common Visit Codes: NOT BILLABLE JENN TORRE MD Jun 20, 2025 12:43
[2025-06-20] MEDS: FUROSEMIDE 20 MG TAB PO SCH (13:44)
--- NOTE | 2025-06-20 14:18 | DVH ---
INDICATION: pna TECHNIQUE: Single frontal view of the chest was obtained COMPARISON: XY CHEST XRAY 1 VIEW on DOS: 06/18/25, XY CHEST PORTABLE on DOS: 06/17/25, XY CHEST PORTABLE on DOS: 06/15/25, XY CHEST PORTABLE on DOS: 06/11/25, XY CHEST PORTABLE on DOS: 02/27/24, XY CHEST XRAY 1 VIEW on DOS: 06/18/25 FINDINGS: Lines and Tubes: Left chest pacemaker Lungs: Congestion Pleura: No effusion. No pneumothorax. Cardiomediastinal contours: Unremarkable Bones: Unremarkable IMPRESSION: Increased interstital prominence. This may represent pulmonary vascular congestion or viral pneumonia . Clinical correlation advised.
--- NOTE | 2025-06-20 14:59 | DVHPN2 ---
Subjective Patient denies any chest pain. Reports respiratory status has improved. Reviewed: Care Plan Changes from previous H/P or p: Changes General: Per HPI Objective Vitals Vital Signs Date Time Temp Pulse Resp B/P (MAP) Pulse Ox O2 Delivery O2 Flow Rate FiO2 06/20/25 13:44 143/56 06/20/25 12:27 98.5 74 20 99 98.5 06/20/25 08:18 Nasal Cannula* 2 28 Intake/Output Intake and Output 06/20/25 07:00 Intake Total 2020 ml Output Total 1150 ml Balance 870 ml Intake Oral 1970 ml IV Total 50 ml Output Urine Total 1150 ml # Voids 3 General Appearance: Alert, Oriented X3, Cooperative Lungs: Other Chest/Breasts: Other Cardiovascular: Regular rate, Normal S1, Normal S2 Abdomen: Normal bowel sounds, Soft, No tenderness, No hepatospenomegaly Musculoskeletal: Normal sensory function, Normal motor function Neuro: Normal speech, Strength at 5/5 X4 ext, Normal tone, Sensation intact, C ranial nerves 3-12 NL Skin: Dry, Intact Psych/Mental Status: Mental status NL Medications Current Medications Medications Dose Ordered Sig/Payam Route Start Time Stop Time Status Last Admin Dose Admin Sodium Chloride 10 ml Q8HR IV 06/11/25 22:00 06/20/25 05:13 10 ML Docusate Sodium 100 mg BIDPRN PRN PO 06/11/25 19:45 Acetaminophen 650 mg Q6HP PRN PO 06/11/25 19:45 06/20/25 04:09 650 MG Ondansetron HCl 4 mg Q4HP PRN IV 06/11/25 19:45 Hydralazine HCl 10 mg Q6HP PRN IV 06/12/25 15:30 Hydralazine HCl 25 mg BID PO 06/12/25 22:00 06/20/25 09:38 25 MG Amlodipine Besylate 5 mg DAILY PO 06/13/25 10:00 06/20/25 09:39 5 MG Isosorbide Mononitrate 60 mg DAILY PO 06/13/25 10:00 06/18/25 09:59 60 MG Allopurinol 100 mg DAILY PO 06/15/25 10:00 06/20/25 09:38 100 MG Albuterol 2.5 mg Q6H NEB 06/16/25 12:00 06/20/25 11:58 2.5 MG Carbamide Peroxide 5 drop Q12HR LEFT EAR 06/16/25 22:00 06/20/25 13:45 5 DROP Albuterol 2.5 mg Q4HPRN PRN NEB 06/16/25 11:30 Doxycycline Monohydrate 100 mg Q12HR PO 06/18/25 10:00 06/20/25 09:38 100 MG Cefazolin Sodium 50 ml @ 100 mls/hr Q12HR IV 06/18/25 10:00 06/20/25 09:37 100 MLS/HR Oxycodone HCl 5 mg Q6HP PRN PO 06/18/25 11:00 06/19/25 05:13 5 MG Morphine Sulfate 1 mg Q6HP PRN IV 06/18/25 11:00 06/18/25 11:13 1 MG Furosemide 40 mg DAILY PO 06/20/25 11:45 06/20/25 13:44 40 MG Laboratory Results Laboratory Tests 06/20/25 06:58 Chemistry Test 06/19/25 16:11 06/20/25 06:58 Calcium Level 9.1 mg/dL (8.7-10.4) 8.7 mg/dL (8.7-10.4) Urinalysis Test 06/11/25 17:00 Urine Color Colorless (Yellow) Urine Clarity Clear (Clear) Urine pH 5.5 (5.0-9.0) Urine Specific [place] 1.007 (1.001-1.035) Urine Protein Negative (Negative) Urine Ketones Negative (Negative) Urine Blood Negative /uL (Negative) Urine Nitrite Negative (Negative) Urine Bilirubin Negative (Negative) Urine Urobilinogen Normal mg/dL (Negative) Urine Leukocyte Esterase Negative /uL (Negative) Urine RBC 1 /hpf (0 - 4) Urine Microscopic WBC 2 /HPF (0-5) Urine Squamous Epithelial Cells Few /hpf (<5) Urine Bacteria Few /hpf (None Seen) H Urine Glucose Normal mg/dL (Normal) Microbiology Microbiology Date/Time Source Procedure Growth Status 06/11/25 12:30 Blood Blood Culture - Final NO GROWTH AFTER 5 DAYS OF INCUBATION. Complete Labs and/or images reviewed: Labs reviewed by me, Image(s) reviewed by me Assessment/Plan Assessment/Plan Impression: -acute hypoxic respiratory failure -acute on chronic diastolic heart failure -pulmonary hypertension -atrial flutter with persistent bradycardia -primary hypertension -obesity -acute on chronic renal failure with questionable vasomotor nephropathy -status post TAVR -COPD with exacerbation -rule out community-acquired pneumonia, Gram-positive/Gram-negative etiology -left ear wax Plan: Events: BUN and creatinine improving. Surgical site benign. Out of bed with nursing to chair. Continues to report having ear pain -physical therapy -O2 supplementation to keep saturation greater than 90% . Currently on 2 L nasal cannula -continue antibiotics -bronchodilators -pain management -consultations: Cardiology, Nephrology -repeat labs in a.m. Total time spent with patient discussing and formulating plan of care: 35 minutes. This medical document was created using an electronic medical record system with [email or web address] dictation system. Although this document has been carefully reviewed, there may still be some phonetic and typographical errors. These areas are purely typographical due to imperfections of the software programs, and do not reflect any compromise in the patient's medical care. Plan discussed with: Patient, Other (RN) My Orders Orders - JEREMY KELLY NP Procedure Category Date Status Time Chest Portable XY 06/20/25 Resulted 04:00 Pt Request For Service PT 06/19/25 Logged 17:08 Basic Metabolic Panel LAB 06/21/25 Verified 05:00 Basic Metabolic Panel LAB 06/22/25 Verified 05:00 Basic Metabolic Panel LAB 06/23/25 Verified 05:00 Complete Blood Count LAB 06/21/25 Verified 05:00 Complete Blood Count LAB 06/22/25 Verified 05:00 Complete Blood Count LAB 06/23/25 Verified 05:00 Date of Service: Jun 20, 2025 Billing Provider: JEREMY KELLY NP Common Visit Codes: [id number] INP/OBS CARE(HIGH) JEREMY KELLY NP Jun 20, 2025 14:58
--- NOTE | 2025-06-20 21:08 | DVHPN2 ---
Progress Note - Dictate Date Seen: Jun 20, 2025 Medical Necessity Reason Pt with a Central, PICC or Fol: No Subjective Patient was seen and evaluated in follow up. No overnight events. Patient now on 2 LPM NC. Patient reports improvement in SOB. WBC 14.5, BUN 60, Small Equipment Operator 1.83. Telemetry reviewed. vital signs Vital Sign Date Time Temp Pulse Resp B/P (MAP) Pulse Ox O2 Delivery O2 Flow Rate FiO2 06/20/25 16:50 98.3 79 20 114/53 (73) 99 98.3 06/20/25 08:18 Nasal Cannula* 2 28 Total Intake and Output 06/19/25 06/19/25 06/20/25 15:00 23:00 07:00 Intake Total 230 ml 990 ml 800 ml Output Total 450 ml 700 ml Balance 230 ml 540 ml 100 ml medications Current Medications Medications Dose Ordered Sig/Payam Route Start Time Stop Time Status Last Admin Dose Admin Sodium Chloride 10 ml Q8HR IV 06/11/25 22:00 06/20/25 17:25 10 ML Docusate Sodium 100 mg BIDPRN PRN PO 06/11/25 19:45 Acetaminophen 650 mg Q6HP PRN PO 06/11/25 19:45 06/20/25 04:09 650 MG Ondansetron HCl 4 mg Q4HP PRN IV 06/11/25 19:45 Hydralazine HCl 10 mg Q6HP PRN IV 06/12/25 15:30 Hydralazine HCl 25 mg BID PO 06/12/25 22:00 06/20/25 09:38 25 MG Amlodipine Besylate 5 mg DAILY PO 06/13/25 10:00 06/20/25 09:39 5 MG Isosorbide Mononitrate 60 mg DAILY PO 06/13/25 10:00 06/18/25 09:59 60 MG Allopurinol 100 mg DAILY PO 06/15/25 10:00 06/20/25 09:38 100 MG Albuterol 2.5 mg Q6H NEB 06/16/25 12:00 06/20/25 11:58 2.5 MG Carbamide Peroxide 5 drop Q12HR LEFT EAR 06/16/25 22:00 06/20/25 13:45 5 DROP Albuterol 2.5 mg Q4HPRN PRN NEB 06/16/25 11:30 Doxycycline Monohydrate 100 mg Q12HR PO 06/18/25 10:00 06/20/25 09:38 100 MG Cefazolin Sodium 50 ml @ 100 mls/hr Q12HR IV 06/18/25 10:00 06/20/25 09:37 100 MLS/HR Oxycodone HCl 5 mg Q6HP PRN PO 06/18/25 11:00 06/19/25 05:13 5 MG Morphine Sulfate 1 mg Q6HP PRN IV 06/18/25 11:00 06/18/25 11:13 1 MG Furosemide 40 mg DAILY PO 06/20/25 11:45 06/20/25 13:44 40 MG objective GENERAL: Alert and oriented x 3. No acute distress. EYES: PERRL, EOMI. Anicteric. HENT: Moist mucous membranes. LUNGS: Clear to auscultation bilaterally. CARDIOVASCULAR: Regular rate and rhythm. ABDOMEN: Soft, nontender and nondistended. EXTREMITIES: No edema. NEUROLOGIC: No focal neurological deficits. SKIN: Warm, dry. laboratory and microbiology Laboratory Tests 06/20/25 06:58 Test 06/20/25 06:58 Range/Units Serum Glucose 97 74-106 mg/dL Problem List NSTEMI. Symptomatic bradycardia. Transient AFib on anticoagulation. Acute on chronic diastolic HF (HFpEF). Severe pulmonary hypertension. Severe aortic stenosis, s/p TAVR. Hypertension. COPD. Obesity. Assessment/Plan Continued all current supportive medical care. Amlodipine. IV antibiotics as ordered. Doxycycline x 2 weeks. Advised not to wet the dressing and keep the left arm in a sling for 3 weeks. Remove the dressing in 3 weeks. Follow up with Dr. Thomas. Dr. Thomas is going IV Hydralazine for SBP >150. Hydralazine. Imdur. IVFs. Additional plan as per the hospital course. Dietary Evaluation Review Comments: Nutrition Recommendaiton 1) MVI 1 tab daily 2) Monitor PO intake, lab values, weight trend, and I/O Expected Outcomes/Goals: Lab values to improve Fu 3-5 days Plan discussed with: Patient CHELY SUMNER MD Jun 20, 2025 21:08
[2025-06-21] VITALS (14 sets, daily range): BP systolic 95–127; BP diastolic 42–86; PULSE 50–94; RESP 16–20; TEMP 97.7–98.3; O2SAT 95–100
[2025-06-21 07:40] LABS: Hematocrit 33.6 % (36.0-46.0); Hemoglobin 11.3 g/dL (12.2-16.2); Mean Corpuscular Hemoglobin 31.3 pg (28.0-32.0); Mean Corpuscular Volume 93.1 fL (80.0-100.0); Nucleated Red Blood Cells % 0.0 %
[2025-06-21 07:46] LABS: Chloride 101 mmol/L (98-107); Potassium 4.2 mmol/L (3.5-5.1); Sodium 139 mmol/L (136-145)
[2025-06-21 07:47] LABS: Anion Gap 9 (5-15); Calcium 8.8 mg/dL (8.7-10.4); Carbon Dioxide 29 mmol/L (20-31)
[2025-06-21 07:52] LABS: BUN/Creatinine Ratio 27.2 (10.0-20.0)
[2025-06-21 07:53] LABS: Blood Urea Nitrogen 43 mg/dL (9-23); Glucose 112 mg/dL (74-106)
--- NOTE | 2025-06-21 12:14 | DVHPN2 ---
Progress Note Date Seen: Jun 21, 2025 Medical Necessity Reason Pt with a Central, PICC or Fol: No Subjective Patient reports: No new complaints Review of Systems: HEENT:Normal, CVS:Normal, RESPIRATORY:Normal, GI:Normal, :Normal, MSK:Normal, NEURO:Normal Objective vital signs Vital Sign Date Time Temp Pulse Resp B/P (MAP) Pulse Ox O2 Delivery O2 Flow Rate FiO2 06/21/25 11:55 60 16 100 06/21/25 11:49 Nasal Cannula 2.0 06/21/25 11:49 28 06/21/25 10:00 120/86 06/21/25 09:05 98.2 98.2 Total Intake and Output 06/20/25 06/20/25 06/21/25 15:00 23:00 07:00 Intake Total 450 ml 600 ml Output Total 800 ml Balance 450 ml -200 ml medications Current Medications Medications Dose Ordered Sig/Payam Route Start Time Stop Time Status Last Admin Dose Admin Sodium Chloride 10 ml Q8HR IV 06/11/25 22:00 06/21/25 06:14 10 ML Docusate Sodium 100 mg BIDPRN PRN PO 06/11/25 19:45 Acetaminophen 650 mg Q6HP PRN PO 06/11/25 19:45 06/20/25 21:29 650 MG Ondansetron HCl 4 mg Q4HP PRN IV 06/11/25 19:45 Hydralazine HCl 10 mg Q6HP PRN IV 06/12/25 15:30 Hydralazine HCl 25 mg BID PO 06/12/25 22:00 06/20/25 09:38 25 MG Allopurinol 100 mg DAILY PO 06/15/25 10:00 06/21/25 09:13 100 MG Albuterol 2.5 mg Q6H NEB 06/16/25 12:00 06/21/25 11:49 2.5 MG Carbamide Peroxide 5 drop Q12HR LEFT EAR 06/16/25 22:00 06/21/25 09:12 5 DROP Albuterol 2.5 mg Q4HPRN PRN NEB 06/16/25 11:30 Cefazolin Sodium 50 ml @ 100 mls/hr Q12HR IV 06/18/25 10:00 06/21/25 09:07 100 MLS/HR Oxycodone HCl 5 mg Q6HP PRN PO 06/18/25 11:00 06/19/25 05:13 5 MG Morphine Sulfate 1 mg Q6HP PRN IV 06/18/25 11:00 06/18/25 11:13 1 MG Furosemide 40 mg DAILY PO 06/20/25 11:45 06/21/25 09:13 40 MG Isosorbide Mononitrate 30 mg DAILY PO 06/22/25 10:00 UNV Examination: GENERAL:Normal, HEENT:Normal, NECK:Normal, LUNGS:Normal, LUNGS:Abnormal (ON OXYGEN), CVS:Normal, ABDOMEN:Normal, MSK:Normal, SKIN:Normal, NEURO:Normal, :Normal laboratory and microbiology Laboratory Tests 06/21/25 06:56 06/21/25 06:54 Test 06/21/25 06:56 Range/Units Serum Glucose 112 H 74-106 mg/dL Microbiology Date/Time Source Procedure Growth Status 06/11/25 12:30 Blood Blood Culture - Final NO GROWTH AFTER 5 DAYS OF INCUBATION. Complete Problem List/Assessment/Plan Problem List/Assessment/Plan #1 acute resp failure: cont oxygen #2 acute on chronic diastolic heart failure: hold lasix #3 htn #4 morbid obesity #5 acute on chronic renal failure ?vasomotor nephropathy: improving #6 s/p tavr #7 bradycardia/ a flutter: pacer today #8 gout #9 copd ?exacerbation: iv steroids #10 ?pneumonia- gram positive/neg: iv antibiotics #11 left ear wax: debrox advance care planning- full code- time spent 19 mins Plan discussed with: Patient, Son My Orders My Orders Orders - ARI FRAZIER MD Procedure Category Date Status Time Isosorbide PHA 06/22/25 Logged Mononitrate Tablet 10:00 Dietary Evaluation Review Comments: Nutrition Recommendaiton 1) MVI 1 tab daily 2) Monitor PO intake, lab values, weight trend, and I/O Expected Outcomes/Goals: Lab values to improve Fu 3-5 days Date of Service: Jun 21, 2025 Billing Provider: ARI FRAZIER MD Common Visit Codes: [id number] INP/OBS CARE(HIGH) ARI FRAZIER MD Jun 21, 2025 12:14
--- NOTE | 2025-06-21 14:47 | DVHPN2 ---
Progress Note Date Seen: Jun 21, 2025 Medical Necessity Reason Pt with a Central, PICC or Fol: No Subjective Patient reports: No new complaints, Feels better Review of Systems: RESPIRATORY:Abnormal Objective vital signs Vital Sign Date Time Temp Pulse Resp B/P (MAP) Pulse Ox O2 Delivery O2 Flow Rate FiO2 06/21/25 13:24 97.7 84 20 95/48 (64) 95 97.7 06/21/25 11:49 Nasal Cannula 2.0 06/21/25 11:49 28 Total Intake and Output 06/20/25 06/20/25 06/21/25 15:00 23:00 07:00 Intake Total 450 ml 600 ml Output Total 800 ml Balance 450 ml -200 ml medications Current Medications Medications Dose Ordered Sig/Payam Route Start Time Stop Time Status Last Admin Dose Admin Sodium Chloride 10 ml Q8HR IV 06/11/25 22:00 06/21/25 06:14 10 ML Docusate Sodium 100 mg BIDPRN PRN PO 06/11/25 19:45 Acetaminophen 650 mg Q6HP PRN PO 06/11/25 19:45 06/20/25 21:29 650 MG Ondansetron HCl 4 mg Q4HP PRN IV 06/11/25 19:45 Hydralazine HCl 10 mg Q6HP PRN IV 06/12/25 15:30 Hydralazine HCl 25 mg BID PO 06/12/25 22:00 06/20/25 09:38 25 MG Allopurinol 100 mg DAILY PO 06/15/25 10:00 06/21/25 09:13 100 MG Albuterol 2.5 mg Q6H NEB 06/16/25 12:00 06/21/25 11:49 2.5 MG Carbamide Peroxide 5 drop Q12HR LEFT EAR 06/16/25 22:00 06/21/25 09:12 5 DROP Albuterol 2.5 mg Q4HPRN PRN NEB 06/16/25 11:30 Cefazolin Sodium 50 ml @ 100 mls/hr Q12HR IV 06/18/25 10:00 06/21/25 09:07 100 MLS/HR Oxycodone HCl 5 mg Q6HP PRN PO 06/18/25 11:00 06/19/25 05:13 5 MG Morphine Sulfate 1 mg Q6HP PRN IV 06/18/25 11:00 06/18/25 11:13 1 MG Furosemide 40 mg DAILY PO 06/20/25 11:45 06/21/25 09:13 40 MG Isosorbide Mononitrate 30 mg DAILY PO 06/22/25 10:00 Montelukast Sodium 10 mg HS PO 06/21/25 22:00 Examination: GENERAL:Normal, LUNGS:Abnormal, MSK:Abnormal, NEURO:Normal laboratory and microbiology Laboratory Tests 06/21/25 06:56 06/21/25 06:54 Test 06/21/25 06:56 Range/Units Serum Glucose 112 H 74-106 mg/dL Microbiology Date/Time Source Procedure Growth Status 06/11/25 12:30 Blood Blood Culture - Final NO GROWTH AFTER 5 DAYS OF INCUBATION. Complete Problem List/Assessment/Plan Problem List/Assessment/Plan Acute kidney injury suspect in the setting of cardiorenal syndrome and hemodynamics Chronic kidney disease stage 3 Dr. 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
[2025-06-21] MEDS: PANTOPRAZOLE 40 MG TAB PO ONE (17:26)
[2025-06-21] MEDS: MONTELUKAST SODIUM 10 MG TAB PO SCH (21:18)
--- NOTE | 2025-06-21 23:41 | DVHPN2 ---
Progress Note - Dictate Date Seen: Jun 21, 2025 Medical Necessity Reason Pt with a Central, PICC or Fol: No Subjective Patient was seen and evaluated in follow up. Patient now on 2 LPM NC. Patient states she feels better today. 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 Telemetry reviewed. vital signs Vital Sign Date Time Temp Pulse Resp B/P (MAP) Pulse Ox O2 Delivery O2 Flow Rate FiO2 06/21/25 21:16 99/42 06/21/25 21:00 98.0 63 17 95 98.0 06/21/25 20:00 Nasal Cannula* 2 28 Total Intake and Output 06/20/25 06/20/25 06/21/25 15:00 23:00 07:00 Intake Total 450 ml 600 ml Output Total 800 ml Balance 450 ml -200 ml medications Current Medications Medications Dose Ordered Sig/Payam Route Start Time Stop Time Status Last Admin Dose Admin Sodium Chloride 10 ml Q8HR IV 06/11/25 22:00 06/21/25 21:18 10 ML Docusate Sodium 100 mg BIDPRN PRN PO 06/11/25 19:45 Acetaminophen 650 mg Q6HP PRN PO 06/11/25 19:45 06/20/25 21:29 650 MG Ondansetron HCl 4 mg Q4HP PRN IV 06/11/25 19:45 Hydralazine HCl 10 mg Q6HP PRN IV 06/12/25 15:30 Hydralazine HCl 25 mg BID PO 06/12/25 22:00 06/20/25 09:38 25 MG Allopurinol 100 mg DAILY PO 06/15/25 10:00 06/21/25 09:13 100 MG Albuterol 2.5 mg Q6H NEB 06/16/25 12:00 06/21/25 18:59 2.5 MG Carbamide Peroxide 5 drop Q12HR LEFT EAR 06/16/25 22:00 06/21/25 21:17 5 DROP Albuterol 2.5 mg Q4HPRN PRN NEB 06/16/25 11:30 Cefazolin Sodium 50 ml @ 100 mls/hr Q12HR IV 06/18/25 10:00 06/21/25 21:17 100 MLS/HR Oxycodone HCl 5 mg Q6HP PRN PO 06/18/25 11:00 06/19/25 05:13 5 MG Morphine Sulfate 1 mg Q6HP PRN IV 06/18/25 11:00 06/18/25 11:13 1 MG Furosemide 40 mg DAILY PO 06/20/25 11:45 06/21/25 09:13 40 MG Isosorbide Mononitrate 30 mg DAILY PO 06/22/25 10:00 Montelukast Sodium 10 mg HS PO 06/21/25 22:00 06/21/25 21:18 10 MG Pantoprazole Sodium 40 mg DAILY@0600 PO 06/22/25 06:00 objective GENERAL: Alert and oriented x 3. No acute distress. EYES: PERRL, EOMI. Anicteric. HENT: Moist mucous membranes. LUNGS: Clear to auscultation bilaterally. CARDIOVASCULAR: Regular rate and rhythm. ABDOMEN: Soft, nontender and nondistended. EXTREMITIES: No edema. NEUROLOGIC: No focal neurological deficits. SKIN: Warm, dry. laboratory and microbiology Laboratory Tests 06/21/25 06:56 06/21/25 06:54 Test 06/21/25 06:56 Range/Units Serum Glucose 112 H 74-106 mg/dL Problem List NSTEMI. Symptomatic bradycardia. Transient AFib on anticoagulation. Acute on chronic diastolic HF (HFpEF). Severe pulmonary hypertension. Severe aortic stenosis, s/p TAVR. Hypertension. COPD. Obesity. Assessment/Plan Continued all current supportive medical care. Amlodipine. IV antibiotics as ordered. Doxycycline x 2 weeks. Advised not to wet the dressing and keep the left arm in a sling for 3 weeks. Remove the dressing in 3 weeks. Follow up with Dr. Thomas. Dr. Thomas is going IV Hydralazine for SBP >150. Hydralazine. Imdur. IVFs. Additional plan as per the hospital course. Dietary Evaluation Review Comments: Nutrition Recommendaiton 1) MVI 1 tab daily 2) Monitor PO intake, lab values, weight trend, and I/O Expected Outcomes/Goals: Lab values to improve Fu 3-5 days Plan discussed with: Patient CHELY SUMNER MD Jun 21, 2025 23:41
[2025-06-22] VITALS (15 sets, daily range): BP systolic 120–132; BP diastolic 42–78; PULSE 61–80; RESP 16–20; TEMP 97.7–98.5; O2SAT 95–100
[2025-06-22] MEDS: PANTOPRAZOLE 40 MG TAB PO SCH (05:21)
[2025-06-22 07:40] LABS: Anion Gap 8 (5-15); Carbon Dioxide 29 mmol/L (20-31); Chloride 102 mmol/L (98-107); Potassium 4.1 mmol/L (3.5-5.1); Sodium 139 mmol/L (136-145)
[2025-06-22 07:43] LABS: Hematocrit 31.1 % (36.0-46.0); Hemoglobin 10.6 g/dL (12.2-16.2); Mean Corpuscular Hemoglobin 31.5 pg (28.0-32.0); Mean Corpuscular Volume 92.4 fL (80.0-100.0); Nucleated Red Blood Cells % 0.1 %
[2025-06-22 07:46] LABS: BUN/Creatinine Ratio 26.6 (10.0-20.0)
[2025-06-22 07:47] LABS: Blood Urea Nitrogen 46 mg/dL (9-23); Calcium 8.5 mg/dL (8.7-10.4); Glucose 107 mg/dL (74-106)
[2025-06-22] MEDS: ISOSORBIDE MONONITRATE ER 60 MG TAB PO SCH (09:40)
--- NOTE | 2025-06-22 13:56 | DVHPN2 ---
Progress Note Date Seen: Jun 22, 2025 Medical Necessity Reason Pt with a Central, PICC or Fol: No Subjective Patient reports: No new complaints Review of Systems: HEENT:Normal, CVS:Normal, RESPIRATORY:Normal, GI:Normal, :Normal, MSK:Normal, NEURO:Normal Objective vital signs Vital Sign Date Time Temp Pulse Resp B/P (MAP) Pulse Ox O2 Delivery O2 Flow Rate FiO2 06/22/25 12:39 98.4 61 20 120/62 (81) 95 98.4 06/22/25 11:51 Nasal Cannula 2.0 06/22/25 11:51 28 Total Intake and Output 06/21/25 06/21/25 06/22/25 15:00 23:00 07:00 Intake Total 50 ml 700 ml 425 ml Output Total 300 ml 450 ml Balance 50 ml 400 ml -25 ml medications Current Medications Medications Dose Ordered Sig/Payam Route Start Time Stop Time Status Last Admin Dose Admin Sodium Chloride 10 ml Q8HR IV 06/11/25 22:00 06/22/25 13:36 10 ML Docusate Sodium 100 mg BIDPRN PRN PO 06/11/25 19:45 Acetaminophen 650 mg Q6HP PRN PO 06/11/25 19:45 06/20/25 21:29 650 MG Ondansetron HCl 4 mg Q4HP PRN IV 06/11/25 19:45 Hydralazine HCl 10 mg Q6HP PRN IV 06/12/25 15:30 Hydralazine HCl 25 mg BID PO 06/12/25 22:00 06/22/25 09:40 25 MG Allopurinol 100 mg DAILY PO 06/15/25 10:00 06/22/25 09:41 100 MG Albuterol 2.5 mg Q6H NEB 06/16/25 12:00 06/22/25 11:51 2.5 MG Carbamide Peroxide 5 drop Q12HR LEFT EAR 06/16/25 22:00 06/22/25 10:04 5 DROP Albuterol 2.5 mg Q4HPRN PRN NEB 06/16/25 11:30 Cefazolin Sodium 50 ml @ 100 mls/hr Q12HR IV 06/18/25 10:00 06/22/25 09:39 100 MLS/HR Oxycodone HCl 5 mg Q6HP PRN PO 06/18/25 11:00 06/19/25 05:13 5 MG Morphine Sulfate 1 mg Q6HP PRN IV 06/18/25 11:00 06/18/25 11:13 1 MG Furosemide 40 mg DAILY PO 06/20/25 11:45 06/22/25 09:41 40 MG Isosorbide Mononitrate 30 mg DAILY PO 06/22/25 10:00 06/22/25 09:40 30 MG Montelukast Sodium 10 mg HS PO 06/21/25 22:00 06/21/25 21:18 10 MG Pantoprazole Sodium 40 mg DAILY@0600 PO 06/22/25 06:00 06/22/25 05:21 40 MG Examination: GENERAL:Normal, HEENT:Normal, NECK:Normal, LUNGS:Normal, LUNGS:Abnormal (on oxygen), CVS:Normal, ABDOMEN:Normal, MSK:Normal, SKIN:Normal, NEURO:Normal, :Normal laboratory and microbiology Laboratory Tests 06/22/25 06:48 Test 06/22/25 06:48 Range/Units Serum Glucose 107 H 74-106 mg/dL Microbiology Date/Time Source Procedure Growth Status 06/11/25 12:30 Blood Blood Culture - Final NO GROWTH AFTER 5 DAYS OF INCUBATION. Complete Problem List/Assessment/Plan Problem List/Assessment/Plan #1 acute resp failure: cont oxygen #2 acute on chronic diastolic heart failure: hold lasix #3 htn #4 morbid obesity #5 acute on chronic renal failure ?vasomotor nephropathy: improving #6 s/p tavr #7 bradycardia/ a flutter: pacer today #8 gout #9 copd ?exacerbation: iv steroids #10 ?pneumonia- gram positive/neg: iv antibiotics #11 left ear wax: debrox advance care planning- full code- time spent 19 mins Plan discussed with: Patient My Orders My Orders Orders - ARI FRAZIER MD Procedure Category Date Status Time Pantoprazole Tablet PHA 06/22/25 In Process (Protonix Tablet) 06:00 * Brick 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
--- NOTE | 2025-06-22 16:08 | DVHPN2 ---
Progress Note Date Seen: Jun 22, 2025 Medical Necessity Reason Pt with a Central, PICC or Fol: No Objective vital signs Vital Sign Date Time Temp Pulse Resp B/P (MAP) Pulse Ox O2 Delivery O2 Flow Rate FiO2 06/22/25 12:39 98.4 61 20 120/62 (81) 95 98.4 06/22/25 11:51 Nasal Cannula 2.0 06/22/25 11:51 28 Total Intake and Output 06/21/25 06/21/25 06/22/25 15:00 23:00 07:00 Intake Total 50 ml 700 ml 425 ml Output Total 300 ml 450 ml Balance 50 ml 400 ml -25 ml medications Current Medications Medications Dose Ordered Sig/Payam Route Start Time Stop Time Status Last Admin Dose Admin Sodium Chloride 10 ml Q8HR IV 06/11/25 22:00 06/22/25 13:36 10 ML Docusate Sodium 100 mg BIDPRN PRN PO 06/11/25 19:45 Acetaminophen 650 mg Q6HP PRN PO 06/11/25 19:45 06/20/25 21:29 650 MG Ondansetron HCl 4 mg Q4HP PRN IV 06/11/25 19:45 Hydralazine HCl 10 mg Q6HP PRN IV 06/12/25 15:30 Hydralazine HCl 25 mg BID PO 06/12/25 22:00 06/22/25 09:40 25 MG Allopurinol 100 mg DAILY PO 06/15/25 10:00 06/22/25 09:41 100 MG Albuterol 2.5 mg Q6H NEB 06/16/25 12:00 06/22/25 11:51 2.5 MG Carbamide Peroxide 5 drop Q12HR LEFT EAR 06/16/25 22:00 06/22/25 10:04 5 DROP Albuterol 2.5 mg Q4HPRN PRN NEB 06/16/25 11:30 Cefazolin Sodium 50 ml @ 100 mls/hr Q12HR IV 06/18/25 10:00 06/22/25 09:39 100 MLS/HR Oxycodone HCl 5 mg Q6HP PRN PO 06/18/25 11:00 06/19/25 05:13 5 MG Morphine Sulfate 1 mg Q6HP PRN IV 06/18/25 11:00 06/18/25 11:13 1 MG Isosorbide Mononitrate 30 mg DAILY PO 06/22/25 10:00 06/22/25 09:40 30 MG Montelukast Sodium 10 mg HS PO 06/21/25 22:00 06/21/25 21:18 10 MG Pantoprazole Sodium 40 mg DAILY@0600 PO 06/22/25 06:00 06/22/25 05:21 40 MG Examination: GENERAL:Abnormal, HEENT:Abnormal, LUNGS:Abnormal, CVS:Abnormal, ABDOMEN:Normal laboratory and microbiology Laboratory Tests 06/22/25 06:48 Test 06/22/25 06:48 Range/Units Serum Glucose 107 H 74-106 mg/dL Microbiology Date/Time Source Procedure Growth Status 06/11/25 12:30 Blood Blood Culture - Final NO GROWTH AFTER 5 DAYS OF INCUBATION. Complete Problem List/Assessment/Plan Problem List/Assessment/Plan sp tavr diastolc advanced HF CKD advanced morbid obesity HTN pulm htn sp PPM for sick sinus/ intermittent 2: 1 block , on doxycycline for abx could add revatio, minimal help prob 2:1 av block, possible PPM for sinus rates 40s off BB, cont renal eval--renal function much better now consider PT/OT placement if indicated Plan discussed with: Patient Dietary Evaluation Review Comments: Nutrition Recommendaiton 1) MVI 1 tab daily 2) Monitor PO intake, lab values, weight trend, and I/O Expected Outcomes/Goals: Lab values to improve Fu 3-5 days Date of Service: Jun 22, 2025 Billing Provider: JENN TORRE MD Common Visit Codes: NOT BILLABLE JENN TORRE MD Jun 22, 2025 16:08
--- NOTE | 2025-06-22 21:06 | DVHPN2 ---
Progress Note Date Seen: Jun 22, 2025 Medical Necessity Reason Pt with a Central, PICC or Fol: No Subjective Patient reports: No new complaints Review of Systems: Deferred Objective vital signs Vital Sign Date Time Temp Pulse Resp B/P (MAP) Pulse Ox O2 Delivery O2 Flow Rate FiO2 06/22/25 19:52 Nasal Cannula* 2 28 06/22/25 16:54 97.7 61 20 132/78 (96) 98 97.7 Total Intake and Output 06/21/25 06/21/25 06/22/25 15:00 23:00 07:00 Intake Total 50 ml 700 ml 425 ml Output Total 300 ml 450 ml Balance 50 ml 400 ml -25 ml medications Current Medications Medications Dose Ordered Sig/Payam Route Start Time Stop Time Status Last Admin Dose Admin Sodium Chloride 10 ml Q8HR IV 06/11/25 22:00 06/22/25 13:36 10 ML Docusate Sodium 100 mg BIDPRN PRN PO 06/11/25 19:45 Acetaminophen 650 mg Q6HP PRN PO 06/11/25 19:45 06/22/25 17:50 650 MG Ondansetron HCl 4 mg Q4HP PRN IV 06/11/25 19:45 Hydralazine HCl 10 mg Q6HP PRN IV 06/12/25 15:30 Hydralazine HCl 25 mg BID PO 06/12/25 22:00 06/22/25 09:40 25 MG Allopurinol 100 mg DAILY PO 06/15/25 10:00 06/22/25 09:41 100 MG Albuterol 2.5 mg Q6H NEB 06/16/25 12:00 06/22/25 19:48 2.5 MG Carbamide Peroxide 5 drop Q12HR LEFT EAR 06/16/25 22:00 06/22/25 10:04 5 DROP Albuterol 2.5 mg Q4HPRN PRN NEB 06/16/25 11:30 Cefazolin Sodium 50 ml @ 100 mls/hr Q12HR IV 06/18/25 10:00 06/22/25 09:39 100 MLS/HR Oxycodone HCl 5 mg Q6HP PRN PO 06/18/25 11:00 06/19/25 05:13 5 MG Morphine Sulfate 1 mg Q6HP PRN IV 06/18/25 11:00 06/18/25 11:13 1 MG Isosorbide Mononitrate 30 mg DAILY PO 06/22/25 10:00 06/22/25 09:40 30 MG Montelukast Sodium 10 mg HS PO 06/21/25 22:00 06/21/25 21:18 10 MG Pantoprazole Sodium 40 mg DAILY@0600 PO 06/22/25 06:00 06/22/25 05:21 40 MG Examination: GENERAL:Normal, LUNGS:Abnormal, MSK:Abnormal, SKIN:Abnormal laboratory and microbiology Laboratory Tests 06/22/25 06:48 Test 06/22/25 06:48 Range/Units Serum Glucose 107 H 74-106 mg/dL Microbiology Date/Time Source Procedure Growth Status 06/11/25 12:30 Blood Blood Culture - Final NO GROWTH AFTER 5 DAYS OF INCUBATION. Complete Problem List/Assessment/Plan Problem List/Assessment/Plan Acute kidney injury suspect in the setting of cardiorenal syndrome and hemodynamics Chronic kidney disease stage 3 Dr. 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
--- NOTE | 2025-06-22 23:04 | DVHPN2 ---
Progress Note - Dictate Date Seen: Jun 22, 2025 Medical Necessity Reason Pt with a Central, PICC or Fol: No Subjective Patient was seen and evaluated in follow up. Patient is on 2 LPM NC. Patient is c/o minimal SOB, she is receiving PRN breathing treatments. 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 Telemetry reviewed. vital signs Vital Sign Date Time Temp Pulse Resp B/P (MAP) Pulse Ox O2 Delivery O2 Flow Rate FiO2 06/22/25 21:22 126/43 06/22/25 21:00 98.1 80 16 96 98.1 06/22/25 19:52 Nasal Cannula* 2 28 Total Intake and Output 06/21/25 06/21/25 06/22/25 15:00 23:00 07:00 Intake Total 50 ml 700 ml 425 ml Output Total 300 ml 450 ml Balance 50 ml 400 ml -25 ml medications Current Medications Medications Dose Ordered Sig/Payam Route Start Time Stop Time Status Last Admin Dose Admin Sodium Chloride 10 ml Q8HR IV 06/11/25 22:00 06/22/25 21:21 10 ML Docusate Sodium 100 mg BIDPRN PRN PO 06/11/25 19:45 Acetaminophen 650 mg Q6HP PRN PO 06/11/25 19:45 06/22/25 17:50 650 MG Ondansetron HCl 4 mg Q4HP PRN IV 06/11/25 19:45 Hydralazine HCl 10 mg Q6HP PRN IV 06/12/25 15:30 Hydralazine HCl 25 mg BID PO 06/12/25 22:00 06/22/25 21:22 25 MG Allopurinol 100 mg DAILY PO 06/15/25 10:00 06/22/25 09:41 100 MG Albuterol 2.5 mg Q6H NEB 06/16/25 12:00 06/22/25 19:48 2.5 MG Carbamide Peroxide 5 drop Q12HR LEFT EAR 06/16/25 22:00 06/22/25 21:22 5 DROP Albuterol 2.5 mg Q4HPRN PRN NEB 06/16/25 11:30 Cefazolin Sodium 50 ml @ 100 mls/hr Q12HR IV 06/18/25 10:00 06/22/25 21:21 100 MLS/HR Oxycodone HCl 5 mg Q6HP PRN PO 06/18/25 11:00 06/19/25 05:13 5 MG Morphine Sulfate 1 mg Q6HP PRN IV 06/18/25 11:00 06/18/25 11:13 1 MG Isosorbide Mononitrate 30 mg DAILY PO 06/22/25 10:00 06/22/25 09:40 30 MG Montelukast Sodium 10 mg HS PO 06/21/25 22:00 06/22/25 21:22 10 MG Pantoprazole Sodium 40 mg DAILY@0600 PO 06/22/25 06:00 06/22/25 05:21 40 MG objective GENERAL: Alert and oriented x 3. No acute distress. EYES: PERRL, EOMI. Anicteric. HENT: Moist mucous membranes. LUNGS: Clear to auscultation bilaterally. CARDIOVASCULAR: Regular rate and rhythm. ABDOMEN: Soft, nontender and nondistended. EXTREMITIES: No edema. NEUROLOGIC: No focal neurological deficits. SKIN: Warm, dry. laboratory and microbiology Laboratory Tests 06/22/25 06:48 Test 06/22/25 06:48 Range/Units Serum Glucose 107 H 74-106 mg/dL Problem List NSTEMI. Symptomatic bradycardia. Transient AFib on anticoagulation. Acute on chronic diastolic HF (HFpEF). Severe pulmonary hypertension. Severe aortic stenosis, s/p TAVR. Hypertension. COPD. Obesity. Assessment/Plan Continued all current supportive medical care. Antibiotics as ordered. IV Hydralazine for SBP >150. Hydralazine. Imdur. GI prophylactics. Additional plan as per the hospital course. Dietary Evaluation Review Comments: Nutrition Recommendaiton 1) MVI 1 tab daily 2) Monitor PO intake, lab values, weight trend, and I/O Expected Outcomes/Goals: Lab values to improve Fu 3-5 days Plan discussed with: Patient CHELY SUMNER MD Jun 22, 2025 23:04
[2025-06-23] VITALS (18 sets, daily range): BP systolic 101–143; BP diastolic 41–83; PULSE 60–89; RESP 16–19; TEMP 97.9–98.3; O2SAT 95–100
[2025-06-23 07:18] LABS: Anion Gap 9 (5-15); Carbon Dioxide 29 mmol/L (20-31); Chloride 100 mmol/L (98-107); Potassium 3.8 mmol/L (3.5-5.1); Sodium 138 mmol/L (136-145)
[2025-06-23 07:21] LABS: Hematocrit 30.2 % (36.0-46.0); Hemoglobin 10.1 g/dL (12.2-16.2); Mean Corpuscular Hemoglobin 31.3 pg (28.0-32.0); Mean Corpuscular Volume 93.6 fL (80.0-100.0); Nucleated Red Blood Cells % 0.0 %
[2025-06-23 07:24] LABS: BUN/Creatinine Ratio 24.5 (10.0-20.0)
[2025-06-23 07:27] LABS: Blood Urea Nitrogen 49 mg/dL (9-23); Calcium 8.4 mg/dL (8.7-10.4); Glucose 168 mg/dL (74-106)
--- NOTE | 2025-06-23 12:30 | DVHPN2 ---
Progress Note Date Seen: Jun 23, 2025 Medical Necessity Reason Pt with a Central, PICC or Fol: No Subjective Patient reports: No new complaints Review of Systems: HEENT:Normal, CVS:Normal, RESPIRATORY:Normal, GI:Normal, :Normal, MSK:Normal, NEURO:Normal Objective vital signs Vital Sign Date Time Temp Pulse Resp B/P (MAP) Pulse Ox O2 Delivery O2 Flow Rate FiO2 06/23/25 11:05 60 18 98 06/23/25 11:00 Nasal Cannula 2.0 06/23/25 11:00 28 06/23/25 10:16 101/83 06/23/25 09:00 97.9 97.9 Total Intake and Output 06/22/25 06/22/25 06/23/25 15:00 23:00 07:00 Intake Total 500 ml 800 ml Output Total 800 ml Balance 500 ml 0 ml medications Current Medications Medications Dose Ordered Sig/Payam Route Start Time Stop Time Status Last Admin Dose Admin Sodium Chloride 10 ml Q8HR IV 06/11/25 22:00 06/23/25 05:04 10 ML Docusate Sodium 100 mg BIDPRN PRN PO 06/11/25 19:45 Acetaminophen 650 mg Q6HP PRN PO 06/11/25 19:45 06/23/25 11:50 650 MG Ondansetron HCl 4 mg Q4HP PRN IV 06/11/25 19:45 Hydralazine HCl 10 mg Q6HP PRN IV 06/12/25 15:30 Hydralazine HCl 25 mg BID PO 06/12/25 22:00 06/23/25 10:16 25 MG Allopurinol 100 mg DAILY PO 06/15/25 10:00 06/23/25 10:15 100 MG Albuterol 2.5 mg Q6H NEB 06/16/25 12:00 06/23/25 11:00 2.5 MG Carbamide Peroxide 5 drop Q12HR LEFT EAR 06/16/25 22:00 06/23/25 10:18 5 DROP Albuterol 2.5 mg Q4HPRN PRN NEB 06/16/25 11:30 Cefazolin Sodium 50 ml @ 100 mls/hr Q12HR IV 06/18/25 10:00 06/23/25 11:50 100 MLS/HR Oxycodone HCl 5 mg Q6HP PRN PO 06/18/25 11:00 06/19/25 05:13 5 MG Morphine Sulfate 1 mg Q6HP PRN IV 06/18/25 11:00 06/18/25 11:13 1 MG Isosorbide Mononitrate 30 mg DAILY PO 06/22/25 10:00 06/23/25 10:15 30 MG Montelukast Sodium 10 mg HS PO 06/21/25 22:00 06/22/25 21:22 10 MG Pantoprazole Sodium 40 mg DAILY@0600 PO 06/22/25 06:00 06/23/25 05:04 40 MG Examination: GENERAL:Normal, HEENT:Normal, NECK:Normal, LUNGS:Normal, CVS:Normal, ABDOMEN:Normal, MSK:Normal, SKIN:Normal, NEURO:Normal, :Normal laboratory and microbiology Laboratory Tests 06/23/25 06:27 Test 06/23/25 06:27 Range/Units Serum Glucose 168 H 74-106 mg/dL Microbiology Date/Time Source Procedure Growth Status 06/11/25 12:30 Blood Blood Culture - Final NO GROWTH AFTER 5 DAYS OF INCUBATION. Complete Problem List/Assessment/Plan Problem List/Assessment/Plan #1 acute resp failure: cont oxygen #2 acute on chronic diastolic heart failure: hold lasix #3 htn #4 morbid obesity #5 acute on chronic renal failure ?vasomotor nephropathy: improving #6 s/p tavr #7 bradycardia/ a flutter: pacer today #8 gout #9 copd ?exacerbation: iv steroids #10 ?pneumonia- gram positive/neg: iv antibiotic, chest xray #11 left ear wax: debrox- dc advance care planning- full code- time spent 19 mins Plan discussed with: Patient My Orders My Orders Orders - ARI FRAZIER MD Procedure Category Date Status Time * [facility] Director CONS 06/22/25 Transmitted Consult Transfer Orders XFER 06/22/25 Transmitted 18:16 Chest Portable XY 06/23/25 Logged 12:23 Doxycycline PHA 06/23/25 Transmitted 100mg/100ml 12:30 Urinalysis LAB 06/23/25 Uncollected 12:26 Dietary Evaluation Review Comments: Nutrition Recommendaiton 1) MVI 1 tab daily 2) Monitor PO intake, lab values, weight trend, and I/O Expected Outcomes/Goals: Lab values to improve Fu 3-5 days Date of Service: Jun 23, 2025 Billing Provider: ARI FRAZIER MD Common Visit Codes: [id number] INP/OBS CARE(HIGH) ARI FRAZIER MD Jun 23, 2025 12:30
--- NOTE | 2025-06-23 13:28 | DVH ---
INDICATION: chf TECHNIQUE: Frontal view of the chest. COMPARISON: XY CHEST PORTABLE on DOS: 06/20/25, XY CHEST XRAY 1 VIEW on DOS: 06/18/25, XY CHEST PORTABLE on DOS: 06/17/25, XY CHEST PORTABLE on DOS: 06/15/25, XY CHEST PORTABLE on DOS: 06/11/25 FINDINGS: Left sided pacemaker . The heart and mediastinal contours are grossly unremarkable. There is no evid ence of pleural disease. The lungs are clear. The bony structures of the chest are intact without fracture. IMPRESSION: 1. No evidence of acute disease.
[2025-06-23] MEDS: PANTOPRAZOLE 40 MG TAB PO ONE (15:54)
[2025-06-23] MEDS: DOXYCYCLINE 100MG/100ML 100 ML IV SCH (15:55)
--- NOTE | 2025-06-23 18:16 | DVHPN2 ---
Progress Note Date Seen: Jun 23, 2025 Medical Necessity Reason Pt with a Central, PICC or Fol: No Subjective Patient reports: No new complaints Review of Systems: HEENT:Normal, RESPIRATORY:Abnormal, MSK:Abnormal Objective vital signs Vital Sign Date Time Temp Pulse Resp B/P (MAP) Pulse Ox O2 Delivery O2 Flow Rate FiO2 06/23/25 13:00 97.9 60 19 143/81 (101) 95 97.9 06/23/25 11:00 Nasal Cannula 2.0 06/23/25 11:00 28 Total Intake and Output 06/22/25 06/22/25 06/23/25 15:00 23:00 07:00 Intake Total 500 ml 800 ml Output Total 800 ml Balance 500 ml 0 ml medications Current Medications Medications Dose Ordered Sig/Payam Route Start Time Stop Time Status Last Admin Dose Admin Sodium Chloride 10 ml Q8HR IV 06/11/25 22:00 06/23/25 14:00 10 ML Docusate Sodium 100 mg BIDPRN PRN PO 06/11/25 19:45 Acetaminophen 650 mg Q6HP PRN PO 06/11/25 19:45 06/23/25 11:50 650 MG Ondansetron HCl 4 mg Q4HP PRN IV 06/11/25 19:45 Hydralazine HCl 10 mg Q6HP PRN IV 06/12/25 15:30 Hydralazine HCl 25 mg BID PO 06/12/25 22:00 06/23/25 10:16 25 MG Allopurinol 100 mg DAILY PO 06/15/25 10:00 06/23/25 10:15 100 MG Albuterol 2.5 mg Q6H NEB 06/16/25 12:00 06/23/25 11:00 2.5 MG Albuterol 2.5 mg Q4HPRN PRN NEB 06/16/25 11:30 Oxycodone HCl 5 mg Q6HP PRN PO 06/18/25 11:00 06/19/25 05:13 5 MG Morphine Sulfate 1 mg Q6HP PRN IV 06/18/25 11:00 06/18/25 11:13 1 MG Isosorbide Mononitrate 30 mg DAILY PO 06/22/25 10:00 06/23/25 10:15 30 MG Montelukast Sodium 10 mg HS PO 06/21/25 22:00 06/22/25 21:22 10 MG Doxycycline Hyclate 100 ml @ 50 mls/hr Q12H IV 06/23/25 12:30 06/23/25 15:55 50 MLS/HR Pantoprazole Sodium 40 mg DAILY@0600 PO 06/24/25 06:00 Examination: GENERAL:Normal, MSK:Abnormal, SKIN:Abnormal laboratory and microbiology Laboratory Tests 06/23/25 06:27 Test 06/23/25 06:27 Range/Units Serum Glucose 168 H 74-106 mg/dL Microbiology Date/Time Source Procedure Growth Status 06/11/25 12:30 Blood Blood Culture - Final NO GROWTH AFTER 5 DAYS OF INCUBATION. Complete Problem List/Assessment/Plan Problem List/Assessment/Plan Acute kidney injury suspect in the setting of cardiorenal syndrome and hemodynamics Chronic kidney disease stage 3 Dr. 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
[2025-06-23 19:52] LABS: Urine Protein, UAD TRACE (Negative)
--- NOTE | 2025-06-23 23:49 | DVHPN2 ---
Progress Note - Dictate Date Seen: Jun 23, 2025 Medical Necessity Reason Pt with a Central, PICC or Fol: No Subjective Patient was seen and evaluated in follow up. Patient is stable on 2 LPM NC. Patient complains of chest pain/acid reflux. 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 Chest x-ray showed NAD. Telemetry reviewed. vital signs Vital Sign Date Time Temp Pulse Resp B/P (MAP) Pulse Ox O2 Delivery O2 Flow Rate FiO2 06/23/25 13:00 97.9 60 19 143/81 (101) 95 97.9 06/23/25 11:00 Nasal Cannula 2.0 06/23/25 11:00 28 Total Intake and Output 06/22/25 06/22/25 06/23/25 15:00 23:00 07:00 Intake Total 500 ml 800 ml Output Total 800 ml Balance 500 ml 0 ml medications Current Medications Medications Dose Ordered Sig/Payam Route Start Time Stop Time Status Last Admin Dose Admin Sodium Chloride 10 ml Q8HR IV 06/11/25 22:00 06/23/25 05:04 10 ML Docusate Sodium 100 mg BIDPRN PRN PO 06/11/25 19:45 Acetaminophen 650 mg Q6HP PRN PO 06/11/25 19:45 06/23/25 11:50 650 MG Ondansetron HCl 4 mg Q4HP PRN IV 06/11/25 19:45 Hydralazine HCl 10 mg Q6HP PRN IV 06/12/25 15:30 Hydralazine HCl 25 mg BID PO 06/12/25 22:00 06/23/25 10:16 25 MG Allopurinol 100 mg DAILY PO 06/15/25 10:00 06/23/25 10:15 100 MG Albuterol 2.5 mg Q6H NEB 06/16/25 12:00 06/23/25 11:00 2.5 MG Albuterol 2.5 mg Q4HPRN PRN NEB 06/16/25 11:30 Oxycodone HCl 5 mg Q6HP PRN PO 06/18/25 11:00 06/19/25 05:13 5 MG Morphine Sulfate 1 mg Q6HP PRN IV 06/18/25 11:00 06/18/25 11:13 1 MG Isosorbide Mononitrate 30 mg DAILY PO 06/22/25 10:00 06/23/25 10:15 30 MG Montelukast Sodium 10 mg HS PO 06/21/25 22:00 06/22/25 21:22 10 MG Doxycycline Hyclate 100 ml @ 50 mls/hr Q12H IV 06/23/25 12:30 Pantoprazole Sodium 40 mg DAILY@0600 PO 06/24/25 06:00 objective GENERAL: Alert and oriented x 3. No acute distress. EYES: PERRL, EOMI. Anicteric. HENT: Moist mucous membranes. LUNGS: Clear to auscultation bilaterally. CARDIOVASCULAR: Regular rate and rhythm. ABDOMEN: Soft, nontender and nondistended. EXTREMITIES: No edema. NEUROLOGIC: No focal neurological deficits. SKIN: Warm, dry. laboratory and microbiology Laboratory Tests 06/23/25 06:27 Test 06/23/25 06:27 Range/Units Serum Glucose 168 H 74-106 mg/dL Problem List NSTEMI. Symptomatic bradycardia. Transient AFib on anticoagulation. Acute on chronic diastolic HF (HFpEF). Severe pulmonary hypertension. Severe aortic stenosis, s/p TAVR. Hypertension. COPD. Obesity. Assessment/Plan Continued all current supportive medical care. IV antibiotics as ordered. IV Hydralazine for SBP >150. Hydralazine. Imdur. GI prophylactics. Additional plan as per the hospital course. Dietary Evaluation Review Comments: Nutrition Recommendaiton 1) MVI 1 tab daily 2) Monitor PO intake, lab values, weight trend, and I/O Expected Outcomes/Goals: Lab values to improve Fu 3-5 days Plan discussed with: Patient CHELY SUMNER MD Jun 23, 2025 14:50
[2025-06-24] VITALS (15 sets, daily range): BP systolic 102–133; BP diastolic 40–66; PULSE 60–84; RESP 16–18; TEMP 97.7–98.6; O2SAT 96–100
[2025-06-24] MEDS: PANTOPRAZOLE 40 MG TAB PO SCH (06:11)
--- NOTE | 2025-06-24 08:17 | ECG ---
[facility] Test Date: 2025-06-23 Test Time: 11:42:20 Pat Name: KEN BENTLEY Department: Room: 0294T A Gender: F [employer]: tb : [id number] Requested By: ARI FRAZIER Order Number: [id number] Reading MD: Farooq Jarquin Measurements Intervals [place] Rate: 60 P: 0 MD: 38 QRS: -71 QRSD: 146 T: 92 QT: 590 QTc: 590 Interpretive Statements Ventricular-paced rhythm No further analysis attempted due to paced rhythm Electronically Signed On 06-28-2025 22:13:30 PDT by Farooq Jarquin Please click the below link to view image of tracing.
[2025-06-24 12:19] LABS: Chloride 102 mmol/L (98-107); Potassium 4.6 mmol/L (3.5-5.1); Sodium 139 mmol/L (136-145)
[2025-06-24 12:20] LABS: Anion Gap 11 (5-15); Carbon Dioxide 26 mmol/L (20-31)
[2025-06-24 12:23] LABS: Calcium 8.5 mg/dL (8.7-10.4)
[2025-06-24 12:25] LABS: BUN/Creatinine Ratio 24.0 (10.0-20.0)
[2025-06-24 12:26] LABS: Blood Urea Nitrogen 53 mg/dL (9-23); Glucose 148 mg/dL (74-106)
--- NOTE | 2025-06-24 12:53 | DVHPN2 ---
Progress Note Date Seen: Jun 24, 2025 Medical Necessity Reason Pt with a Central, PICC or Fol: No Subjective Patient reports: Other (iv site pain ) Review of Systems: Deferred Objective vital signs Vital Sign Date Time Temp Pulse Resp B/P (MAP) Pulse Ox O2 Delivery O2 Flow Rate FiO2 06/24/25 11:01 133/66 06/24/25 09:00 97.7 65 18 97 97.7 06/24/25 06:18 Nasal Cannula* 2 28 Total Intake and Output 06/23/25 06/23/25 06/24/25 15:00 23:00 07:00 Intake Total 50 ml 550 ml 770 ml Output Total 451 ml Balance 50 ml 550 ml 319 ml medications Current Medications Medications Dose Ordered Sig/Payam Route Start Time Stop Time Status Last Admin Dose Admin Sodium Chloride 10 ml Q8HR IV 06/11/25 22:00 06/24/25 06:11 10 ML Docusate Sodium 100 mg BIDPRN PRN PO 06/11/25 19:45 Acetaminophen 650 mg Q6HP PRN PO 06/11/25 19:45 06/23/25 21:57 650 MG Ondansetron HCl 4 mg Q4HP PRN IV 06/11/25 19:45 Hydralazine HCl 10 mg Q6HP PRN IV 06/12/25 15:30 Hydralazine HCl 25 mg BID PO 06/12/25 22:00 06/24/25 11:01 25 MG Allopurinol 100 mg DAILY PO 06/15/25 10:00 06/24/25 11:00 100 MG Albuterol 2.5 mg Q6H NEB 06/16/25 12:00 06/24/25 06:18 2.5 MG Albuterol 2.5 mg Q4HPRN PRN NEB 06/16/25 11:30 Oxycodone HCl 5 mg Q6HP PRN PO 06/18/25 11:00 06/19/25 05:13 5 MG Morphine Sulfate 1 mg Q6HP PRN IV 06/18/25 11:00 06/18/25 11:13 1 MG Isosorbide Mononitrate 30 mg DAILY PO 06/22/25 10:00 06/24/25 11:00 30 MG Montelukast Sodium 10 mg HS PO 06/21/25 22:00 06/23/25 21:47 10 MG Doxycycline Hyclate 100 ml @ 50 mls/hr Q12H IV 06/23/25 12:30 06/24/25 00:37 50 MLS/HR Pantoprazole Sodium 40 mg DAILY@0600 PO 06/24/25 06:00 06/24/25 06:11 40 MG Sodium Chloride 1,000 ml @ 75 mls/hr [id number] IV 06/24/25 13:00 UNV Examination: GENERAL:Normal, LUNGS:Normal, MSK:Normal, SKIN:Abnormal, NEURO:Normal laboratory and microbiology Laboratory Tests 06/24/25 11:39 06/23/25 06:27 Test 06/24/25 11:39 Range/Units Serum Glucose 148 H 74-106 mg/dL Microbiology Date/Time Source Procedure Growth Status 06/11/25 12:30 Blood Blood Culture - Final NO GROWTH AFTER 5 DAYS OF INCUBATION. Complete Problem List/Assessment/Plan Problem List/Assessment/Plan Acute kidney injury suspect in the setting of cardiorenal syndrome and hemodynamics Chronic kidney disease stage 3 a, Dr. 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 History of TAVR recs Ns iv as ordered slightly worse renal function--abx ?induced dc lasix Plan discussed with: Patient, Son My Orders My Orders Orders - TONO WITT MD Procedure Category Date Status Time Basic Metabolic Panel LAB 06/25/25 Verified 05:00 Basic Metabolic Panel LAB 06/26/25 Verified 05:00 Basic Metabolic Panel LAB 06/27/25 Verified 05:00 Basic Metabolic Panel LAB 06/28/25 Verified 05:00 Basic Metabolic Panel LAB 06/29/25 Verified 05:00 Basic Metabolic Panel LAB 06/30/25 Verified 05:00 Basic Metabolic Panel LAB 07/01/25 Verified 05:00 Sodium Chloride 0.9% PHA 06/24/25 Logged 13:00 Dietary Evaluation Review Comments: Nutrition Recommendaiton 1) MVI 1 tab daily 2) Monitor PO intake, lab values, weight trend, and I/O Expected Outcomes/Goals: Lab values to improve Fu 3-5 days TONO WITT MD Jun 24, 2025 12:52
--- NOTE | 2025-06-24 16:25 | DVHPN2 ---
Progress Note Date Seen: Jun 24, 2025 Medical Necessity Reason Pt with a Central, PICC or Fol: No Subjective Patient reports: No new complaints Review of Systems: HEENT:Normal, CVS:Normal, RESPIRATORY:Normal, GI:Normal, :Normal, MSK:Normal, NEURO:Normal Objective vital signs Vital Sign Date Time Temp Pulse Resp B/P (MAP) Pulse Ox O2 Delivery O2 Flow Rate FiO2 06/24/25 13:00 98.3 60 16 106/64 (78) 99 98.3 06/24/25 12:37 Nasal Cannula* 2 28 Total Intake and Output 06/23/25 06/23/25 06/24/25 15:00 23:00 07:00 Intake Total 50 ml 550 ml 770 ml Output Total 451 ml Balance 50 ml 550 ml 319 ml medications Current Medications Medications Dose Ordered Sig/Payam Route Start Time Stop Time Status Last Admin Dose Admin Sodium Chloride 10 ml Q8HR IV 06/11/25 22:00 06/24/25 06:11 10 ML Docusate Sodium 100 mg BIDPRN PRN PO 06/11/25 19:45 Acetaminophen 650 mg Q6HP PRN PO 06/11/25 19:45 06/23/25 21:57 650 MG Ondansetron HCl 4 mg Q4HP PRN IV 06/11/25 19:45 Hydralazine HCl 10 mg Q6HP PRN IV 06/12/25 15:30 Hydralazine HCl 25 mg BID PO 06/12/25 22:00 06/24/25 11:01 25 MG Allopurinol 100 mg DAILY PO 06/15/25 10:00 06/24/25 11:00 100 MG Albuterol 2.5 mg Q6H NEB 06/16/25 12:00 06/24/25 12:37 2.5 MG Albuterol 2.5 mg Q4HPRN PRN NEB 06/16/25 11:30 Oxycodone HCl 5 mg Q6HP PRN PO 06/18/25 11:00 06/19/25 05:13 5 MG Morphine Sulfate 1 mg Q6HP PRN IV 06/18/25 11:00 06/18/25 11:13 1 MG Isosorbide Mononitrate 30 mg DAILY PO 06/22/25 10:00 06/24/25 11:00 30 MG Montelukast Sodium 10 mg HS PO 06/21/25 22:00 06/23/25 21:47 10 MG Doxycycline Hyclate 100 ml @ 50 mls/hr Q12H IV 06/23/25 12:30 06/24/25 00:37 50 MLS/HR Pantoprazole Sodium 40 mg DAILY@0600 PO 06/24/25 06:00 06/24/25 06:11 40 MG Sodium Chloride 1,000 ml @ 75 mls/hr [id number] IV 06/24/25 13:00 Examination: GENERAL:Normal, HEENT:Normal, NECK:Normal, LUNGS:Normal, CVS:Normal, ABDOMEN:Normal, MSK:Normal, SKIN:Normal, NEURO:Normal, :Normal laboratory and microbiology Laboratory Tests 06/24/25 11:39 06/23/25 06:27 Test 06/24/25 11:39 Range/Units Serum Glucose 148 H 74-106 mg/dL Microbiology Date/Time Source Procedure Growth Status 06/11/25 12:30 Blood Blood Culture - Final NO GROWTH AFTER 5 DAYS OF INCUBATION. Complete Problem List/Assessment/Plan Problem List/Assessment/Plan #1 acute resp failure: cont oxygen #2 acute on chronic diastolic heart failure: hold lasix #3 htn #4 morbid obesity #5 acute on chronic renal failure ?vasomotor nephropathy: improving #6 s/p tavr #7 bradycardia/ a flutter: pacer today #8 gout #9 copd ?exacerbation: iv steroids #10 ?pneumonia- gram positive/neg: iv antibiotic, chest xray #11 left ear wax: debrox- dc advance care planning- full code- time spent 19 mins Plan discussed with: Patient My Orders My Orders Orders - ARI FRAZIER MD Procedure Category Date Status Time Complete Blood Count LAB 06/25/25 Verified 06:00 Dietary Evaluation Review Comments: Nutrition Recommendaiton 1) MVI 1 tab daily 2) Monitor PO intake, lab values, weight trend, and I/O Expected Outcomes/Goals: Lab values to improve Fu 3-5 days Date of Service: Jun 24, 2025 Billing Provider: ARI FRAZIER MD Common Visit Codes: [id number] INP/OBS CARE(HIGH) ARI FRAZIER MD Jun 24, 2025 16:25
[2025-06-24] MEDS: SODIUM CHLORIDE 0.9% 1,000 ML IV SCH (17:00)
--- NOTE | 2025-06-24 23:17 | DVHPN2 ---
Progress Note - Dictate Date Seen: Jun 24, 2025 Medical Necessity Reason Pt with a Central, PICC or Fol: No Subjective Patient was seen and evaluated in follow up. Patient remains on 2 LPM NC. Patient complains of chest discomfort with acid reflux. 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 Telemetry reviewed. vital signs Vital Sign Date Time Temp Pulse Resp B/P (MAP) Pulse Ox O2 Delivery O2 Flow Rate FiO2 06/24/25 12:43 80 18 100 06/24/25 12:37 Nasal Cannula* 2 28 06/24/25 11:01 133/66 06/24/25 09:00 97.7 97.7 Total Intake and Output 06/23/25 06/23/25 06/24/25 15:00 23:00 07:00 Intake Total 50 ml 550 ml 770 ml Output Total 451 ml Balance 50 ml 550 ml 319 ml medications Current Medications Medications Dose Ordered Sig/Payam Route Start Time Stop Time Status Last Admin Dose Admin Sodium Chloride 10 ml Q8HR IV 06/11/25 22:00 06/24/25 06:11 10 ML Docusate Sodium 100 mg BIDPRN PRN PO 06/11/25 19:45 Acetaminophen 650 mg Q6HP PRN PO 06/11/25 19:45 06/23/25 21:57 650 MG Ondansetron HCl 4 mg Q4HP PRN IV 06/11/25 19:45 Hydralazine HCl 10 mg Q6HP PRN IV 06/12/25 15:30 Hydralazine HCl 25 mg BID PO 06/12/25 22:00 06/24/25 11:01 25 MG Allopurinol 100 mg DAILY PO 06/15/25 10:00 06/24/25 11:00 100 MG Albuterol 2.5 mg Q6H NEB 06/16/25 12:00 06/24/25 12:37 2.5 MG Albuterol 2.5 mg Q4HPRN PRN NEB 06/16/25 11:30 Oxycodone HCl 5 mg Q6HP PRN PO 06/18/25 11:00 06/19/25 05:13 5 MG Morphine Sulfate 1 mg Q6HP PRN IV 06/18/25 11:00 06/18/25 11:13 1 MG Isosorbide Mononitrate 30 mg DAILY PO 06/22/25 10:00 06/24/25 11:00 30 MG Montelukast Sodium 10 mg HS PO 06/21/25 22:00 06/23/25 21:47 10 MG Doxycycline Hyclate 100 ml @ 50 mls/hr Q12H IV 06/23/25 12:30 06/24/25 00:37 50 MLS/HR Pantoprazole Sodium 40 mg DAILY@0600 PO 06/24/25 06:00 06/24/25 06:11 40 MG Sodium Chloride 1,000 ml @ 75 mls/hr [id number] IV 06/24/25 13:00 objective GENERAL: Alert and oriented x 3. No acute distress. EYES: PERRL, EOMI. Anicteric. HENT: Moist mucous membranes. LUNGS: Clear to auscultation bilaterally. CARDIOVASCULAR: Regular rate and rhythm. ABDOMEN: Soft, nontender and nondistended. EXTREMITIES: No edema. NEUROLOGIC: No focal neurological deficits. SKIN: Warm, dry. laboratory and microbiology Laboratory Tests 06/24/25 11:39 06/23/25 06:27 Test 06/24/25 11:39 Range/Units Serum Glucose 148 H 74-106 mg/dL Problem List NSTEMI. Symptomatic bradycardia. Transient AFib on anticoagulation. Acute on chronic diastolic HF (HFpEF). Severe pulmonary hypertension. Severe aortic stenosis, s/p TAVR. Hypertension. COPD. Obesity. Assessment/Plan Continued all current supportive medical care. IV antibiotics as ordered. IV Hydralazine for SBP >150. Hydralazine. Imdur. GI prophylactics. Additional plan as per the hospital course. Dietary Evaluation Review Comments: Nutrition Recommendaiton 1) MVI 1 tab daily 2) Monitor PO intake, lab values, weight trend, and I/O Expected Outcomes/Goals: Lab values to improve Fu 3-5 days Plan discussed with: Patient CHELY SUMNER MD Jun 24, 2025 13:12
[2025-06-25] VITALS (15 sets, daily range): BP systolic 113–137; BP diastolic 40–88; PULSE 55–84; RESP 16–24; TEMP 97.4–98.8; O2SAT 90–99
[2025-06-25 08:04] LABS: Hematocrit 26.0 % (36.0-46.0); Hemoglobin 8.9 g/dL (12.2-16.2); Mean Corpuscular Hemoglobin 31.9 pg (28.0-32.0); Mean Corpuscular Volume 93.6 fL (80.0-100.0); Nucleated Red Blood Cells % 0.1 %
[2025-06-25 08:14] LABS: Anion Gap 9 (5-15); Carbon Dioxide 26 mmol/L (20-31); Chloride 104 mmol/L (98-107); Potassium 3.9 mmol/L (3.5-5.1); Sodium 139 mmol/L (136-145)
[2025-06-25 08:20] LABS: BUN/Creatinine Ratio 19.3 (10.0-20.0); Glucose 99 mg/dL (74-106)
[2025-06-25 08:21] LABS: Blood Urea Nitrogen 39 mg/dL (9-23); Calcium 8.3 mg/dL (8.7-10.4)
--- NOTE | 2025-06-25 10:10 | DVHPN2 ---
Progress Note Date Seen: Jun 25, 2025 Medical Necessity Reason Pt with a Central, PICC or Fol: No Subjective Patient reports: Feels worse Review of Systems: MSK:Abnormal (ue pain iv site) Objective vital signs Vital Sign Date Time Temp Pulse Resp B/P (MAP) Pulse Ox O2 Delivery O2 Flow Rate FiO2 06/25/25 09:35 135/61 06/25/25 08:30 97.9 57 17 90 97.9 06/25/25 06:53 Nasal Cannula 2.0 06/25/25 06:53 28 Total Intake and Output 06/24/25 06/24/25 06/25/25 15:00 23:00 07:00 Intake Total 550 ml 1285 ml Output Total 450 ml Balance 550 ml 835 ml medications Current Medications Medications Dose Ordered Sig/Payam Route Start Time Stop Time Status Last Admin Dose Admin Sodium Chloride 10 ml Q8HR IV 06/11/25 22:00 06/25/25 06:08 10 ML Docusate Sodium 100 mg BIDPRN PRN PO 06/11/25 19:45 Acetaminophen 650 mg Q6HP PRN PO 06/11/25 19:45 06/23/25 21:57 650 MG Ondansetron HCl 4 mg Q4HP PRN IV 06/11/25 19:45 Hydralazine HCl 10 mg Q6HP PRN IV 06/12/25 15:30 Hydralazine HCl 25 mg BID PO 06/12/25 22:00 06/25/25 09:35 25 MG Allopurinol 100 mg DAILY PO 06/15/25 10:00 06/25/25 09:35 100 MG Albuterol 2.5 mg Q6H NEB 06/16/25 12:00 06/25/25 06:53 2.5 MG Albuterol 2.5 mg Q4HPRN PRN NEB 06/16/25 11:30 Oxycodone HCl 5 mg Q6HP PRN PO 06/18/25 11:00 06/19/25 05:13 5 MG Morphine Sulfate 1 mg Q6HP PRN IV 06/18/25 11:00 06/18/25 11:13 1 MG Isosorbide Mononitrate 30 mg DAILY PO 06/22/25 10:00 06/25/25 09:35 30 MG Montelukast Sodium 10 mg HS PO 06/21/25 22:00 06/24/25 21:51 10 MG Doxycycline Hyclate 100 ml @ 50 mls/hr Q12H IV 06/23/25 12:30 06/25/25 00:46 50 MLS/HR Pantoprazole Sodium 40 mg DAILY@0600 PO 06/24/25 06:00 06/25/25 06:08 40 MG Sodium Chloride 1,000 ml @ 75 mls/hr [id number] IV 06/24/25 13:00 06/24/25 17:00 75 MLS/HR Examination: GENERAL:Normal, MSK:Normal, NEURO:Normal laboratory and microbiology Laboratory Tests 06/25/25 06:46 Test 06/25/25 06:46 Range/Units Serum Glucose 99 74-106 mg/dL Microbiology Date/Time Source Procedure Growth Status 06/11/25 12:30 Blood Blood Culture - Final NO GROWTH AFTER 5 DAYS OF INCUBATION. Complete Problem List/Assessment/Plan Problem List/Assessment/Plan Acute kidney injury hemodynamic mediated etiology Chronic kidney disease stage 3 a, Dr. 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 History of TAVR recs Ns iv as ordered continue for today and stop tomorrow Better Renal function Plan discussed with: Patient, Son My Orders My Orders Orders - TONO WITT MD Procedure Category Date Status Time Basic Metabolic Panel LAB 06/26/25 Verified 05:00 Basic Metabolic Panel LAB 06/27/25 Verified 05:00 Basic Metabolic Panel LAB 06/28/25 Verified 05:00 Basic Metabolic Panel LAB 06/29/25 Verified 05:00 Basic Metabolic Panel LAB 06/30/25 Verified 05:00 Basic Metabolic Panel LAB 07/01/25 Verified 05:00 Sodium Chloride 0.9% PHA 06/24/25 In Process 13:00 Dietary Evaluation Review Comments: Nutrition Recommendaiton 1) MVI 1 tab daily 2) Monitor PO intake, lab values, weight trend, and I/O Expected Outcomes/Goals: Lab values to improve Fu 3-5 days TONO WITT MD Jun 25, 2025 10:10
--- NOTE | 2025-06-25 14:32 | DVHPN2 ---
Subjective Patient denies any chest pain. Reports respiratory status has improved. Reviewed: Care Plan Changes from previous H/P or p: No Changes General: Per HPI Objective Vitals Vital Signs Date Time Temp Pulse Resp B/P (MAP) Pulse Ox O2 Delivery O2 Flow Rate FiO2 06/25/25 13:06 97.4 55 16 121/44 (69) 91 97.4 06/25/25 11:19 Nasal Cannula* 2 28 Intake/Output Intake and Output 06/25/25 07:00 Intake Total 1835 ml Output Total 450 ml Balance 1385 ml Intake Oral 990 ml IV Total 845 ml Output Urine Total 450 ml # Voids 2 # Bowel Movements 1 General Appearance: Alert, Oriented X3, Cooperative HEENT: Atraumatic, PERRLA Lungs: Other Chest/Breasts: Other Cardiovascular: Regular rate, Normal S1, Normal S2 Abdomen: Normal bowel sounds, Soft, No tenderness, No hepatospenomegaly Musculoskeletal: Normal sensory function, Normal motor function Neuro: Normal speech, Strength at 5/5 X4 ext, Normal tone, Sensation intact, C ranial nerves 3-12 NL Skin: Dry, Intact Psych/Mental Status: Mental status NL, Mood NL Medications Current Medications Medications Dose Ordered Sig/Payam Route Start Time Stop Time Status Last Admin Dose Admin Sodium Chloride 10 ml Q8HR IV 06/11/25 22:00 06/25/25 06:08 10 ML Docusate Sodium 100 mg BIDPRN PRN PO 06/11/25 19:45 Acetaminophen 650 mg Q6HP PRN PO 06/11/25 19:45 06/23/25 21:57 650 MG Ondansetron HCl 4 mg Q4HP PRN IV 06/11/25 19:45 Hydralazine HCl 10 mg Q6HP PRN IV 06/12/25 15:30 Hydralazine HCl 25 mg BID PO 06/12/25 22:00 06/25/25 09:35 25 MG Allopurinol 100 mg DAILY PO 06/15/25 10:00 06/25/25 09:35 100 MG Albuterol 2.5 mg Q6H NEB 06/16/25 12:00 06/25/25 11:19 2.5 MG Albuterol 2.5 mg Q4HPRN PRN NEB 06/16/25 11:30 Oxycodone HCl 5 mg Q6HP PRN PO 06/18/25 11:00 06/19/25 05:13 5 MG Morphine Sulfate 1 mg Q6HP PRN IV 06/18/25 11:00 06/18/25 11:13 1 MG Isosorbide Mononitrate 30 mg DAILY PO 06/22/25 10:00 06/25/25 09:35 30 MG Montelukast Sodium 10 mg HS PO 06/21/25 22:00 06/24/25 21:51 10 MG Doxycycline Hyclate 100 ml @ 50 mls/hr Q12H IV 06/23/25 12:30 06/25/25 12:57 50 MLS/HR Pantoprazole Sodium 40 mg DAILY@0600 PO 06/24/25 06:00 06/25/25 06:08 40 MG Sodium Chloride 1,000 ml @ 75 mls/hr [id number] IV 06/24/25 13:00 06/24/25 17:00 75 MLS/HR Laboratory Results Laboratory Tests 06/25/25 06:46 Chemistry Test 06/25/25 06:46 Calcium Level 8.3 mg/dL (8.7-10.4) L Urinalysis Test 06/23/25 19:39 Urine Color Yellow (Yellow) Urine Clarity Turbid (Clear) H Urine pH 5.5 (5.0-9.0) Urine Specific [place] 1.019 (1.001-1.035) Urine Protein Trace (Negative) H Urine Ketones Negative (Negative) Urine Blood Negative /uL (Negative) Urine Nitrite Negative (Negative) Urine Bilirubin Negative (Negative) Urine Urobilinogen Normal mg/dL (Negative) Urine Leukocyte Esterase 3+ /uL (Negative) Urine RBC 22 /hpf (0 - 4) Urine Microscopic WBC 31 /HPF (0-5) H Urine Squamous Epithelial Cells Few /hpf (<5) Urine Bacteria Few /hpf (None Seen) H Urine Glucose Normal mg/dL (Normal) Microbiology Microbiology Date/Time Source Procedure Growth Status 06/11/25 12:30 Blood Blood Culture - Final NO GROWTH AFTER 5 DAYS OF INCUBATION. Complete Labs and/or images reviewed: Labs reviewed by me, Image(s) reviewed by me Assessment/Plan Assessment/Plan Impression: -acute hypoxic respiratory failure -acute on chronic diastolic heart failure -pulmonary hypertension -atrial flutter with persistent bradycardia -primary hypertension -obesity -acute on chronic renal failure with questionable vasomotor nephropathy -status post TAVR -COPD with exacerbation -rule out community-acquired pneumonia, Gram-positive/Gram-negative etiology -left ear wax Plan: Events: Patient reporting have severe dyspnea while ambulating. [facility]. Patient states that her dyspnea is too severe to be transferred today. Re-evaluate for transfer to SNF tomorrow. -physical therapy -O2 supplementation to keep saturation greater than 90% . Currently on 2 L nasal cannula -continue antibiotics -bronchodilators -pain management -consultations: Cardiology, Nephrology -repeat labs in a.m. Total time spent with patient discussing and formulating plan of care: 35 minutes. This medical document was created using an electronic medical record system with [employer] dictation system. Although this document has been carefully reviewed, there may still be some phonetic and typographical errors. These areas are purely typographical due to imperfections of the software programs, and do not reflect any compromise in the patient's medical care. Plan discussed with: Patient, Other (RN) Date of Service: Jun 25, 2025 Billing Provider: JEREMY KELLY NP Common Visit Codes: [id number] INP/OBS CARE(HIGH) JEREMY KELLY NP Jun 25, 2025 14:32
--- NOTE | 2025-06-25 20:36 | DVHPN2 ---
Progress Note - Dictate Date Seen: Jun 25, 2025 Medical Necessity Reason Pt with a Central, PICC or Fol: No Subjective Patient was seen and evaluated in follow up. Patient remains on 2 LPM NC. Patient complains of perineal itching/redness. 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 Telemetry reviewed. vital signs Vital Sign Date Time Temp Pulse Resp B/P (MAP) Pulse Ox O2 Delivery O2 Flow Rate FiO2 06/25/25 13:06 97.4 55 16 121/44 (69) 91 97.4 06/25/25 11:19 Nasal Cannula* 2 28 Total Intake and Output 06/24/25 06/24/25 06/25/25 15:00 23:00 07:00 Intake Total 550 ml 1285 ml Output Total 450 ml Balance 550 ml 835 ml medications Current Medications Medications Dose Ordered Sig/Payam Route Start Time Stop Time Status Last Admin Dose Admin Sodium Chloride 10 ml Q8HR IV 06/11/25 22:00 06/25/25 06:08 10 ML Docusate Sodium 100 mg BIDPRN PRN PO 06/11/25 19:45 Acetaminophen 650 mg Q6HP PRN PO 06/11/25 19:45 06/23/25 21:57 650 MG Ondansetron HCl 4 mg Q4HP PRN IV 06/11/25 19:45 Hydralazine HCl 10 mg Q6HP PRN IV 06/12/25 15:30 Hydralazine HCl 25 mg BID PO 06/12/25 22:00 06/25/25 09:35 25 MG Allopurinol 100 mg DAILY PO 06/15/25 10:00 06/25/25 09:35 100 MG Albuterol 2.5 mg Q6H NEB 06/16/25 12:00 06/25/25 11:19 2.5 MG Albuterol 2.5 mg Q4HPRN PRN NEB 06/16/25 11:30 Oxycodone HCl 5 mg Q6HP PRN PO 06/18/25 11:00 06/19/25 05:13 5 MG Morphine Sulfate 1 mg Q6HP PRN IV 06/18/25 11:00 06/18/25 11:13 1 MG Isosorbide Mononitrate 30 mg DAILY PO 06/22/25 10:00 06/25/25 09:35 30 MG Montelukast Sodium 10 mg HS PO 06/21/25 22:00 06/24/25 21:51 10 MG Doxycycline Hyclate 100 ml @ 50 mls/hr Q12H IV 06/23/25 12:30 06/25/25 12:57 50 MLS/HR Pantoprazole Sodium 40 mg DAILY@0600 PO 06/24/25 06:00 06/25/25 06:08 40 MG Sodium Chloride 1,000 ml @ 75 mls/hr [id number] IV 06/24/25 13:00 06/24/25 17:00 75 MLS/HR objective GENERAL: Alert and oriented x 3. No acute distress. EYES: PERRL, EOMI. Anicteric. HENT: Moist mucous membranes. LUNGS: Clear to auscultation bilaterally. CARDIOVASCULAR: Regular rate and rhythm. ABDOMEN: Soft, nontender and nondistended. EXTREMITIES: No edema. NEUROLOGIC: No focal neurological deficits. SKIN: Warm, dry. laboratory and microbiology Laboratory Tests 06/25/25 06:46 Test 06/25/25 06:46 Range/Units Serum Glucose 99 74-106 mg/dL Problem List NSTEMI. Symptomatic bradycardia. Transient AFib on anticoagulation. Acute on chronic diastolic HF (HFpEF). Severe pulmonary hypertension. Severe aortic stenosis, s/p TAVR. Hypertension. COPD. Obesity. Assessment/Plan Continued all current supportive medical care. IV antibiotics as ordered. IV Hydralazine for SBP >150. Hydralazine. Imdur. GI prophylactics. Additional plan as per the hospital course. Dietary Evaluation Review Comments: Nutrition Recommendaiton 1) MVI 1 tab daily 2) Monitor PO intake, lab values, weight trend, and I/O Expected Outcomes/Goals: Lab values to improve Fu 3-5 days Plan discussed with: Patient CHELY SUMNER MD Jun 25, 2025 13:50
[2025-06-25] MEDS: DOXYCYCLINE 100 MG TAB/CAP PO SCH (22:07)
[2025-06-26] VITALS (15 sets, daily range): BP systolic 108–155; BP diastolic 51–88; PULSE 61–162; RESP 18–22; TEMP 97.7–98.5; O2SAT 91–100
[2025-06-26 08:23] LABS: Anion Gap 11 (5-15); Carbon Dioxide 23 mmol/L (20-31); Chloride 105 mmol/L (98-107); Potassium 4.1 mmol/L (3.5-5.1); Sodium 139 mmol/L (136-145)
[2025-06-26] MEDS: dilTIAZem 25 MG/5 ML VIAL IV ONE (08:28)
[2025-06-26 08:29] LABS: BUN/Creatinine Ratio 15.4 (10.0-20.0)
[2025-06-26 08:31] LABS: Blood Urea Nitrogen 31 mg/dL (9-23); Calcium 8.6 mg/dL (8.7-10.4); Glucose 112 mg/dL (74-106)
--- NOTE | 2025-06-26 09:07 | DVHPN2 ---
Progress Note Date Seen: Jun 26, 2025 Medical Necessity Reason Pt with a Central, PICC or Fol: No Subjective Patient reports: No new complaints Objective vital signs Vital Sign Date Time Temp Pulse Resp B/P (MAP) Pulse Ox O2 Delivery O2 Flow Rate FiO2 06/26/25 08:30 98.2 67 18 138/67 (90) 94 98.2 06/26/25 06:53 Nasal Cannula* 2 28 Total Intake and Output 06/25/25 06/25/25 06/26/25 14:59 22:59 06:59 Intake Total 400 ml 1100 ml 1390 ml Output Total 350 ml Balance 400 ml 1100 ml 1040 ml medications Current Medications Medications Dose Ordered Sig/Payam Route Start Time Stop Time Status Last Admin Dose Admin Sodium Chloride 10 ml Q8HR IV 06/11/25 22:00 06/26/25 06:21 10 ML Docusate Sodium 100 mg BIDPRN PRN PO 06/11/25 19:45 Acetaminophen 650 mg Q6HP PRN PO 06/11/25 19:45 06/25/25 22:12 650 MG Ondansetron HCl 4 mg Q4HP PRN IV 06/11/25 19:45 Hydralazine HCl 10 mg Q6HP PRN IV 06/12/25 15:30 Hydralazine HCl 25 mg BID PO 06/12/25 22:00 06/25/25 09:35 25 MG Allopurinol 100 mg DAILY PO 06/15/25 10:00 06/25/25 09:35 100 MG Albuterol 2.5 mg Q6H NEB 06/16/25 12:00 06/26/25 06:53 2.5 MG Albuterol 2.5 mg Q4HPRN PRN NEB 06/16/25 11:30 Oxycodone HCl 5 mg Q6HP PRN PO 06/18/25 11:00 06/19/25 05:13 5 MG Morphine Sulfate 1 mg Q6HP PRN IV 06/18/25 11:00 06/26/25 08:09 1 MG Isosorbide Mononitrate 30 mg DAILY PO 06/22/25 10:00 06/25/25 09:35 30 MG Montelukast Sodium 10 mg HS PO 06/21/25 22:00 06/25/25 22:08 10 MG Pantoprazole Sodium 40 mg DAILY@0600 PO 06/24/25 06:00 06/26/25 06:21 40 MG Sodium Chloride 1,000 ml @ 75 mls/hr [id number] IV 06/24/25 13:00 06/25/25 22:17 75 MLS/HR Doxycycline Monohydrate 100 mg Q12HR PO 06/25/25 22:00 06/25/25 22:07 100 MG Enoxaparin Sodium 100 mg Q12HR SC 06/26/25 10:00 UNV Examination: GENERAL:Normal, MSK:Normal, NEURO:Normal laboratory and microbiology Laboratory Tests 06/26/25 07:55 06/25/25 06:46 Test 06/26/25 07:55 Range/Units Serum Glucose 112 H 74-106 mg/dL Microbiology Date/Time Source Procedure Growth Status 06/11/25 12:30 Blood Blood Culture - Final NO GROWTH AFTER 5 DAYS OF INCUBATION. Complete Problem List/Assessment/Plan Problem List/Assessment/Plan Acute kidney injury hemodynamic mediated etiology Chronic kidney disease stage 3 a, Dr. 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
[2025-06-26] MEDS: AMIODARONE BOLUS KIT 100 ML IV ONE ×2 (09:47)
[2025-06-26] MEDS: AMIODARONE 360mg/200mL PREMIX 200 ML IV ONE ×2 (09:54)
--- NOTE | 2025-06-26 09:55 | DVHPN2 ---
Subjective AFib with RVR Reviewed: Care Plan Changes from previous H/P or p: Changes (Developed AFib with RVR 160s) General: Per HPI Objective Vitals Vital Signs Date Time Temp Pulse Resp B/P (MAP) Pulse Ox O2 Delivery O2 Flow Rate FiO2 06/26/25 08:30 98.2 67 18 138/67 (90) 94 98.2 06/26/25 06:53 Nasal Cannula* 2 28 Intake/Output Intake and Output 06/26/25 07:00 Intake Total 2890 ml Output Total 350 ml Balance 2540 ml Intake Oral 2290 ml IV Total 600 ml Output Urine Total 350 ml # Voids 5 General Appearance: Alert, Oriented X3, Cooperative HEENT: Atraumatic, PERRLA Lungs: Other Chest/Breasts: Other Cardiovascular: Regular rate, Normal S1, Normal S2 Abdomen: Normal bowel sounds, Soft, No tenderness, No hepatospenomegaly Musculoskeletal: Normal sensory function, Normal motor function Neuro: Normal speech, Strength at 5/5 X4 ext, Normal tone, Sensation intact, C ranial nerves 3-12 NL Skin: Dry, Intact Psych/Mental Status: Mental status NL, Mood NL Medications Current Medications Medications Dose Ordered Sig/Payam Route Start Time Stop Time Status Last Admin Dose Admin Sodium Chloride 10 ml Q8HR IV 06/11/25 22:00 06/26/25 06:21 10 ML Docusate Sodium 100 mg BIDPRN PRN PO 06/11/25 19:45 Acetaminophen 650 mg Q6HP PRN PO 06/11/25 19:45 06/25/25 22:12 650 MG Ondansetron HCl 4 mg Q4HP PRN IV 06/11/25 19:45 Hydralazine HCl 10 mg Q6HP PRN IV 06/12/25 15:30 Hydralazine HCl 25 mg BID PO 06/12/25 22:00 06/25/25 09:35 25 MG Allopurinol 100 mg DAILY PO 06/15/25 10:00 06/25/25 09:35 100 MG Albuterol 2.5 mg Q6H NEB 06/16/25 12:00 06/26/25 06:53 2.5 MG Albuterol 2.5 mg Q4HPRN PRN NEB 06/16/25 11:30 Oxycodone HCl 5 mg Q6HP PRN PO 06/18/25 11:00 06/19/25 05:13 5 MG Morphine Sulfate 1 mg Q6HP PRN IV 06/18/25 11:00 06/26/25 08:09 1 MG Isosorbide Mononitrate 30 mg DAILY PO 06/22/25 10:00 06/25/25 09:35 30 MG Montelukast Sodium 10 mg HS PO 06/21/25 22:00 06/25/25 22:08 10 MG Pantoprazole Sodium 40 mg DAILY@0600 PO 06/24/25 06:00 06/26/25 06:21 40 MG Doxycycline Monohydrate 100 mg Q12HR PO 06/25/25 22:00 06/25/25 22:07 100 MG Enoxaparin Sodium 100 mg Q12HR SC 06/26/25 10:00 UNV Laboratory Results Laboratory Tests 06/25/25 06:46 06/26/25 07:55 Chemistry Test 06/26/25 07:55 Calcium Level 8.6 mg/dL (8.7-10.4) L Urinalysis Test 06/23/25 19:39 Urine Color Yellow (Yellow) Urine Clarity Turbid (Clear) H Urine pH 5.5 (5.0-9.0) Urine Specific [place] 1.019 (1.001-1.035) Urine Protein Trace (Negative) H Urine Ketones Negative (Negative) Urine Blood Negative /uL (Negative) Urine Nitrite Negative (Negative) Urine Bilirubin Negative (Negative) Urine Urobilinogen Normal mg/dL (Negative) Urine Leukocyte Esterase 3+ /uL (Negative) Urine RBC 22 /hpf (0 - 4) Urine Microscopic WBC 31 /HPF (0-5) H Urine Squamous Epithelial Cells Few /hpf (<5) Urine Bacteria Few /hpf (None Seen) H Urine Glucose Normal mg/dL (Normal) Microbiology Microbiology Date/Time Source Procedure Growth Status 06/11/25 12:30 Blood Blood Culture - Final NO GROWTH AFTER 5 DAYS OF INCUBATION. Complete Assessment/Plan Assessment/Plan Assessment AFib with RVR s/p Dual chamber PPM with medtronic NSTEMI Symptomatic bradycardia Transient AFib on anticoagulation Acute on chronic diastolic HF (HFpEF) Severe pulmonary hypertension Severe aortic stenosis, s/p TAVR Hypertension COPD Obesity Plan/Recommendation (Dr. Sumner ): Patient developed atrial fibrillation with rapid ventricular response (150- 160bpm). Initial management with IV diltiazem 10 mg was unsuccessful in controlling rate. Patient was subsequently started on amiodarone per protocol. Anticoagulation initiated with therapeutic Lovenox. Chads Vasc score : 4 HAS-BLED: 1 * Continue amiodarone infusion per protocol * Monitor hemodynamic status, electrolytes, and QT interval * Continue therapeutic Lovenox, transition to Eliquis 2.5mg bid on discharge * Pacemaker interrogation once rate is controlled * Close cardiac surveillance This medical document was created using an electronic medical record system with voice recognition software and computerized dictation system. Although this document has been carefully reviewed, there might still be some phonetic and typographical errors. Occasional wrong-word or ``sound-alike substitutions may have occurred due to the inherent limitations of voice recognition software. These areas are purely typographical due to imperfections of the software programs and do not reflect any compromise in the patient's medical care. Please read the chart carefully and recognize, using context, where these substitutions have occurred. Plan discussed with: Patient Symptomatic bradycardia and elevated BP Plan discussed with: Patient NYHA Plan discussed with: Patient, Other (RN) My Orders Orders - WILIAN CLAYTON Procedure Category Date Status Time Magnesium Vs MOODY 06/26/25 In Process 08:53 Enoxaparin Sodium PHA 06/26/25 Logged (Lovenox) 10:00 Amiodarone PHA 06/26/25 Logged 360mg/200ml Premix 09:15 Amiodarone PHA 06/26/25 Logged 360mg/200ml Premix 15:15 Magnesium LAB 06/26/25 Logged 08:53 Date of Service: Jun 26, 2025 Billing Provider: CHELY SUMNER MD Common Visit Codes: CONSULT ONLY Consultation Codes: [id number] CONSULT <60MIN WILIAN CLAYTON Jun 26, 2025 09:55
[2025-06-26] MEDS: ENOXAPARIN SOD 100 MG/1 ML SYRINGE SC SCH (10:33)
[2025-06-26] MEDS: AMIODARONE 360mg/200mL PREMIX 200 ML IV SCH (15:23)
--- NOTE | 2025-06-26 16:16 | DVHPN2 ---
Subjective Patient denies any chest pain. Reports respiratory status has improved. Reviewed: Care Plan Changes from previous H/P or p: No Changes General: Per HPI Objective Vitals Vital Signs Date Time Temp Pulse Resp B/P (MAP) Pulse Ox O2 Delivery O2 Flow Rate FiO2 06/26/25 13:00 98.5 151 22 108/87 (94) 99 98.5 06/26/25 12:17 Nasal Cannula 2.0 06/26/25 12:17 28 Intake/Output Intake and Output 06/26/25 07:00 Intake Total 2890 ml Output Total 350 ml Balance 2540 ml Intake Oral 2290 ml IV Total 600 ml Output Urine Total 350 ml # Voids 5 General Appearance: Alert, Oriented X3, Cooperative HEENT: Atraumatic, PERRLA Lungs: Other Chest/Breasts: Other Cardiovascular: Regular rate, Normal S1, Normal S2 Abdomen: Normal bowel sounds, Soft, No tenderness, No hepatospenomegaly Musculoskeletal: Normal sensory function, Normal motor function Neuro: Normal speech, Strength at 5/5 X4 ext, Normal tone, Sensation intact, C ranial nerves 3-12 NL Skin: Dry, Intact Psych/Mental Status: Mental status NL, Mood NL Medications Current Medications Medications Dose Ordered Sig/Payam Route Start Time Stop Time Status Last Admin Dose Admin Sodium Chloride 10 ml Q8HR IV 06/11/25 22:00 06/26/25 15:25 10 ML Docusate Sodium 100 mg BIDPRN PRN PO 06/11/25 19:45 Acetaminophen 650 mg Q6HP PRN PO 06/11/25 19:45 06/25/25 22:12 650 MG Ondansetron HCl 4 mg Q4HP PRN IV 06/11/25 19:45 Hydralazine HCl 10 mg Q6HP PRN IV 06/12/25 15:30 Hydralazine HCl 25 mg BID PO 06/12/25 22:00 06/25/25 09:35 25 MG Allopurinol 100 mg DAILY PO 06/15/25 10:00 06/26/25 10:34 100 MG Albuterol 2.5 mg Q6H NEB 06/16/25 12:00 06/26/25 06:53 2.5 MG Albuterol 2.5 mg Q4HPRN PRN NEB 06/16/25 11:30 Oxycodone HCl 5 mg Q6HP PRN PO 06/18/25 11:00 06/19/25 05:13 5 MG Morphine Sulfate 1 mg Q6HP PRN IV 06/18/25 11:00 06/26/25 08:09 1 MG Isosorbide Mononitrate 30 mg DAILY PO 06/22/25 10:00 06/26/25 10:34 30 MG Montelukast Sodium 10 mg HS PO 06/21/25 22:00 06/25/25 22:08 10 MG Pantoprazole Sodium 40 mg DAILY@0600 PO 06/24/25 06:00 06/26/25 06:21 40 MG Doxycycline Monohydrate 100 mg Q12HR PO 06/25/25 22:00 06/26/25 10:34 100 MG Enoxaparin Sodium 100 mg DAILY SC 06/26/25 10:00 06/26/25 10:33 100 MG Laboratory Results Laboratory Tests 06/25/25 06:46 06/26/25 07:55 Chemistry Test 06/26/25 07:55 Calcium Level 8.6 mg/dL (8.7-10.4) L Magnesium Level 2.2 mg/dL (1.6-2.6) Urinalysis Test 06/23/25 19:39 Urine Color Yellow (Yellow) Urine Clarity Turbid (Clear) H Urine pH 5.5 (5.0-9.0) Urine Specific [place] 1.019 (1.001-1.035) Urine Protein Trace (Negative) H Urine Ketones Negative (Negative) Urine Blood Negative /uL (Negative) Urine Nitrite Negative (Negative) Urine Bilirubin Negative (Negative) Urine Urobilinogen Normal mg/dL (Negative) Urine Leukocyte Esterase 3+ /uL (Negative) Urine RBC 22 /hpf (0 - 4) Urine Microscopic WBC 31 /HPF (0-5) H Urine Squamous Epithelial Cells Few /hpf (<5) Urine Bacteria Few /hpf (None Seen) H Urine Glucose Normal mg/dL (Normal) Microbiology Microbiology Date/Time Source Procedure Growth Status 06/11/25 12:30 Blood Blood Culture - Final NO GROWTH AFTER 5 DAYS OF INCUBATION. Complete Labs and/or images reviewed: Labs reviewed by me, Image(s) reviewed by me Assessment/Plan Assessment/Plan Impression: -acute hypoxic respiratory failure -acute on chronic diastolic heart failure -pulmonary hypertension -atrial flutter with persistent bradycardia -primary hypertension -obesity -acute on chronic renal failure with questionable vasomotor nephropathy -status post TAVR -COPD with exacerbation -rule out community-acquired pneumonia, Gram-positive/Gram-negative etiology -left ear wax Plan: Events: Patient went into AFib with RVR. Persistent dyspnea. Re-evaluate echocardiogram. Patient is status post TAVR, with noted severe stenosis of mitral valve with pulmonary hypertension. -patient placed on amiodarone drip by Cardiology. -physical therapy -O2 supplementation to keep saturation greater than 90% . Currently on 2 L nasal cannula -continue antibiotics -bronchodilators -pain management -consultations: Cardiology, Nephrology -repeat labs in a.m. Critical care time spent with patient discussing and formulating plan of care: 40 minutes. This does not include time spent performing procedures. This medical document was created using an electronic medical record system with [employer] dictation system. Although this document has been carefully reviewed, there may still be some phonetic and typographical errors. These areas are purely typographical due to imperfections of the software programs, and do not reflect any compromise in the patient's medical care. Plan discussed with: Patient, Other (RN) My Orders Orders - JEREMY KELLY NP Procedure Category Date Status Time Apply Barrier Cream MOODY 06/25/25 In Process 15:43 Cleanse Wound With MOODY 06/25/25 In Process Mild Soap A 15:43 Date of Service: Jun 26, 2025 Billing Provider: JEREMY KELLY NP Common Visit Codes: 69942-IUF/OBS DISCH DAY >30min JEREMY KELLY NP Jun 26, 2025 16:16
[2025-06-26] MEDS: AMIODARONE HCL 200 MG TAB PO ONE (17:43)
[2025-06-26] MEDS: AMIODARONE HCL 200 MG TAB PO SCH (21:26)
--- NOTE | 2025-06-26 23:14 | DVHPN2 ---
Consult Progress Note Subjective Other Systems: Patient was seen and evaluated in follow up. Patient developed AFib with RVR 160s on the environmental monitoring specialist. BUN 31, MACHINERY REPAIR MAINTENANCE SUPERVISOR 2.01, [place] 8.6. Telemetry reviewed. Objective vital signs Vital Sign Date Time Temp Pulse Resp B/P (MAP) Pulse Ox O2 Delivery O2 Flow Rate FiO2 06/26/25 12:17 98 Nasal Cannula 2.0 06/26/25 12:17 28 06/26/25 12:17 72 18 06/26/25 10:34 119/81 06/26/25 08:30 98.2 98.2 Total Intake and Output 06/25/25 06/25/25 06/26/25 15:00 23:00 07:00 Intake Total 400 ml 1100 ml 1390 ml Output Total 350 ml Balance 400 ml 1100 ml 1040 ml medications Current Medications Medications Dose Ordered Sig/Payam Route Start Time Stop Time Status Last Admin Dose Admin Sodium Chloride 10 ml Q8HR IV 06/11/25 22:00 06/26/25 06:21 10 ML Docusate Sodium 100 mg BIDPRN PRN PO 06/11/25 19:45 Acetaminophen 650 mg Q6HP PRN PO 06/11/25 19:45 06/25/25 22:12 650 MG Ondansetron HCl 4 mg Q4HP PRN IV 06/11/25 19:45 Hydralazine HCl 10 mg Q6HP PRN IV 06/12/25 15:30 Hydralazine HCl 25 mg BID PO 06/12/25 22:00 06/25/25 09:35 25 MG Allopurinol 100 mg DAILY PO 06/15/25 10:00 06/26/25 10:34 100 MG Albuterol 2.5 mg Q6H NEB 06/16/25 12:00 06/26/25 12:17 2.5 MG Albuterol 2.5 mg Q4HPRN PRN NEB 06/16/25 11:30 Oxycodone HCl 5 mg Q6HP PRN PO 06/18/25 11:00 06/19/25 05:13 5 MG Morphine Sulfate 1 mg Q6HP PRN IV 06/18/25 11:00 06/26/25 08:09 1 MG Isosorbide Mononitrate 30 mg DAILY PO 06/22/25 10:00 06/26/25 10:34 30 MG Montelukast Sodium 10 mg HS PO 06/21/25 22:00 06/25/25 22:08 10 MG Pantoprazole Sodium 40 mg DAILY@0600 PO 06/24/25 06:00 06/26/25 06:21 40 MG Doxycycline Monohydrate 100 mg Q12HR PO 06/25/25 22:00 06/26/25 10:34 100 MG Enoxaparin Sodium 100 mg DAILY SC 06/26/25 10:00 06/26/25 10:33 100 MG Examination: GENERAL:Normal, HEENT:Normal, NECK:Normal, LUNGS:Normal, LUNGS:Abnormal, CVS:Abnormal, ABDOMEN:Normal, MSK:Normal laboratory and microbiology Laboratory Tests 06/26/25 07:55 06/25/25 06:46 Test 06/26/25 07:55 Range/Units Serum Glucose 112 H 74-106 mg/dL Problem List/Assessment/Plan Problem List/Assessment/Plan Problem List AFib with RVR. s/p Dual chamber PPM with medtronic. NSTEMI. Symptomatic bradycardia. Transient AFib on anticoagulation. Acute on chronic diastolic HF (HFpEF). Severe pulmonary hypertension. Severe aortic stenosis, s/p TAVR. Hypertension. COPD. Obesity. Assessment/Plan Continued all current supportive medical care. Patient has been seen by Janie Adams NP on my behalf, her and I discussed the plan with the patient. Patient developed atrial fibrillation with rapid ventricular response (150- 160bpm). Initial management with IV diltiazem 10 mg was unsuccessful in controlling rate. Patient was subsequently started on amiodarone per protocol. Anticoagulation initiated with therapeutic Lovenox. Chads Vasc score : 4. HAS-BLED: 1. Continue amiodarone infusion per protocol. Monitor hemodynamic status, electrolytes, and QT interval. Continue therapeutic Lovenox, transition to Eliquis 2.5mg bid on discharge. Pacemaker interrogation once rate is controlled. Close cardiac surveillance. Additional plan as per the hospital course. Plan discussed with: Patient Dietary Evaluation Review Comments: Nutrition Recommendaiton 1) MVI 1 tab daily 2) Monitor PO intake, lab values, weight trend, and I/O Expected Outcomes/Goals: Lab values to improve Fu 3-5 days Date of Service: Jun 26, 2025 Billing Provider: CHELY SUMNER MD Cardiology Common Codes: [id number] HOSP CARE(High Cardiology Consultation Codes: [id number] CONSULT <60MIN CHELY SUMNER MD Jun 26, 2025 13:20
[2025-06-27] VITALS (16 sets, daily range): BP systolic 118–164; BP diastolic 67–97; PULSE 59–85; RESP 16–22; TEMP 97.4–98.7; O2SAT 96–100
--- NOTE | 2025-06-27 10:56 | ECG ---
[facility] Test Date: 2025-06-26 Test Time: 07:55:47 Pat Name: KEN BENTLEY Department: Respiratoy Room: 0294T A Gender: F Benefit Director: RAAD HER : 1940 Requested By: CHELY SUMNER Order Number: [id number] Reading MD: Farooq Jarquin Measurements Intervals [place] Rate: 157 P: 0 IA: 0 QRS: 68 QRSD: 78 T: 246 QT: 274 QTc: 443 Interpretive Statements Atrial fibrillation with rapid V-rate Ventricular premature complex Repolarization abnormality, prob rate related Electronically Signed On 06-28-2025 22:16:02 PDT by Farooq Jarquin Please click the below link to view image of tracing.
[2025-06-27 11:09] LABS: Anion Gap 9 (5-15); Carbon Dioxide 25 mmol/L (20-31); Chloride 105 mmol/L (98-107); Potassium 4.4 mmol/L (3.5-5.1); Sodium 139 mmol/L (136-145)
[2025-06-27 11:10] LABS: Calcium 8.9 mg/dL (8.7-10.4)
[2025-06-27 11:15] LABS: BUN/Creatinine Ratio 18.6 (10.0-20.0); Blood Urea Nitrogen 36 mg/dL (9-23); Glucose 113 mg/dL (74-106)
--- NOTE | 2025-06-27 11:33 | DVHPN2 ---
Subjective Patient denies any chest pain. Reports respiratory status has improved. Reviewed: Care Plan Changes from previous H/P or p: No Changes General: Per HPI Objective Vitals Vital Signs Date Time Temp Pulse Resp B/P (MAP) Pulse Ox O2 Delivery O2 Flow Rate FiO2 06/27/25 09:06 133/72 06/27/25 06:43 59 18 99 06/27/25 06:37 Nasal Cannula 2.0 06/27/25 06:37 28 06/27/25 05:00 98.2 98.2 Intake/Output Intake and Output 06/27/25 07:00 Intake Total 1490 ml Output Total 200 ml Balance 1290 ml Intake Oral 1490 ml Output Urine Total 200 ml # Voids 7 General Appearance: Alert, Oriented X3, Cooperative HEENT: Atraumatic, PERRLA Lungs: Other Chest/Breasts: Other Cardiovascular: Regular rate, Normal S1, Normal S2 Abdomen: Normal bowel sounds, Soft, No tenderness, No hepatospenomegaly Musculoskeletal: Normal sensory function, Normal motor function Neuro: Normal speech, Strength at 5/5 X4 ext, Normal tone, Sensation intact, C ranial nerves 3-12 NL Skin: Dry, Intact Psych/Mental Status: Mental status NL, Mood NL Medications Current Medications Medications Dose Ordered Sig/Payam Route Start Time Stop Time Status Last Admin Dose Admin Sodium Chloride 10 ml Q8HR IV 06/11/25 22:00 06/27/25 06:00 10 ML Docusate Sodium 100 mg BIDPRN PRN PO 06/11/25 19:45 Acetaminophen 650 mg Q6HP PRN PO 06/11/25 19:45 06/27/25 02:16 650 MG Ondansetron HCl 4 mg Q4HP PRN IV 06/11/25 19:45 Hydralazine HCl 10 mg Q6HP PRN IV 06/12/25 15:30 Hydralazine HCl 25 mg BID PO 06/12/25 22:00 06/27/25 09:05 25 MG Allopurinol 100 mg DAILY PO 06/15/25 10:00 06/27/25 09:05 100 MG Albuterol 2.5 mg Q6H NEB 06/16/25 12:00 06/27/25 06:36 2.5 MG Albuterol 2.5 mg Q4HPRN PRN NEB 06/16/25 11:30 Oxycodone HCl 5 mg Q6HP PRN PO 06/18/25 11:00 06/19/25 05:13 5 MG Morphine Sulfate 1 mg Q6HP PRN IV 06/18/25 11:00 06/26/25 08:09 1 MG Isosorbide Mononitrate 30 mg DAILY PO 06/22/25 10:00 06/27/25 09:06 30 MG Montelukast Sodium 10 mg HS PO 06/21/25 22:00 06/26/25 21:26 10 MG Pantoprazole Sodium 40 mg DAILY@0600 PO 06/24/25 06:00 06/27/25 06:42 40 MG Doxycycline Monohydrate 100 mg Q12HR PO 06/25/25 22:00 06/27/25 09:05 100 MG Enoxaparin Sodium 100 mg DAILY SC 06/26/25 10:00 06/27/25 09:07 100 MG Amiodarone HCl 200 mg Q12HR PO 06/26/25 22:00 06/27/25 09:05 200 MG Laboratory Results Laboratory Tests 06/25/25 06:46 06/27/25 10:40 Chemistry Test 06/27/25 10:40 Calcium Level 8.9 mg/dL (8.7-10.4) Urinalysis Test 06/23/25 19:39 Urine Color Yellow (Yellow) Urine Clarity Turbid (Clear) H Urine pH 5.5 (5.0-9.0) Urine Specific [place] 1.019 (1.001-1.035) Urine Protein Trace (Negative) H Urine Ketones Negative (Negative) Urine Blood Negative /uL (Negative) Urine Nitrite Negative (Negative) Urine Bilirubin Negative (Negative) Urine Urobilinogen Normal mg/dL (Negative) Urine Leukocyte Esterase 3+ /uL (Negative) Urine RBC 22 /hpf (0 - 4) Urine Microscopic WBC 31 /HPF (0-5) H Urine Squamous Epithelial Cells Few /hpf (<5) Urine Bacteria Few /hpf (None Seen) H Urine Glucose Normal mg/dL (Normal) Microbiology Microbiology Date/Time Source Procedure Growth Status 06/11/25 12:30 Blood Blood Culture - Final NO GROWTH AFTER 5 DAYS OF INCUBATION. Complete Labs and/or images reviewed: Labs reviewed by me, Image(s) reviewed by me Assessment/Plan Assessment/Plan Impression: -acute hypoxic respiratory failure -acute on chronic diastolic heart failure -pulmonary hypertension -atrial flutter with persistent bradycardia -primary hypertension -obesity -acute on chronic renal failure with questionable vasomotor nephropathy -status post TAVR -COPD with exacerbation -rule out community-acquired pneumonia, Gram-positive/Gram-negative etiology -left ear wax Plan: Events: Patient now V paced. Stop amiodarone drip. Transitioned to p.o.. Stop anticoagulation with Lovenox. Restart Eliquis at 2.5 mg p.o. b.i.d. repeat chest x-ray -patient placed on amiodarone drip by Cardiology. -physical therapy -O2 supplementation to keep saturation greater than 90% . Currently on 2 L nasal cannula -continue antibiotics -bronchodilators -pain management -consultations: Cardiology, Nephrology -repeat labs in a.m. Critical care time spent with patient discussing and formulating plan of care: 40 minutes. This does not include time spent performing procedures. This medical document was created using an electronic medical record system with [employer] dictation system. Although this document has been carefully reviewed, there may still be some phonetic and typographical errors. These areas are purely typographical due to imperfections of the software programs, and do not reflect any compromise in the patient's medical care. Plan discussed with: Patient, Other (RN) My Orders Orders - JEREMY KELLY NP Procedure Category Date Status Time Basic Metabolic Panel LAB 06/28/25 Verified 04:00 Complete Blood Count LAB 06/28/25 Verified 04:00 Chest Xray 1 View XY 06/27/25 Verified 11:29 Apixaban (Eliquis) PHA 06/27/25 Verified 22:00 Date of Service: Jun 27, 2025 Billing Provider: JEREMY KELLY NP Common Visit Codes: [id number] INP/OBS CARE(HIGH) JEREMY KELLY NP Jun 27, 2025 11:33
--- NOTE | 2025-06-27 12:21 | DVHPN2 ---
Progress Note Date Seen: Jun 27, 2025 Medical Necessity Reason Pt with a Central, PICC or Fol: No Subjective Patient reports: No new complaints, Feels better Review of Systems: Deferred Objective vital signs Vital Sign Date Time Temp Pulse Resp B/P (MAP) Pulse Ox O2 Delivery O2 Flow Rate FiO2 06/27/25 11:54 78 18 100 06/27/25 11:48 Nasal Cannula 2.0 06/27/25 11:48 28 06/27/25 09:06 133/72 06/27/25 05:00 98.2 98.2 Total Intake and Output 06/26/25 06/26/25 06/27/25 15:00 23:00 07:00 Intake Total 650 ml 600 ml 240 ml Output Total 200 ml Balance 650 ml 400 ml 240 ml medications Current Medications Medications Dose Ordered Sig/Payam Route Start Time Stop Time Status Last Admin Dose Admin Sodium Chloride 10 ml Q8HR IV 06/11/25 22:00 06/27/25 06:00 10 ML Docusate Sodium 100 mg BIDPRN PRN PO 06/11/25 19:45 Acetaminophen 650 mg Q6HP PRN PO 06/11/25 19:45 06/27/25 02:16 650 MG Ondansetron HCl 4 mg Q4HP PRN IV 06/11/25 19:45 Hydralazine HCl 10 mg Q6HP PRN IV 06/12/25 15:30 Hydralazine HCl 25 mg BID PO 06/12/25 22:00 06/27/25 09:05 25 MG Allopurinol 100 mg DAILY PO 06/15/25 10:00 06/27/25 09:05 100 MG Albuterol 2.5 mg Q6H NEB 06/16/25 12:00 06/27/25 11:48 2.5 MG Albuterol 2.5 mg Q4HPRN PRN NEB 06/16/25 11:30 Isosorbide Mononitrate 30 mg DAILY PO 06/22/25 10:00 06/27/25 09:06 30 MG Montelukast Sodium 10 mg HS PO 06/21/25 22:00 06/26/25 21:26 10 MG Pantoprazole Sodium 40 mg DAILY@0600 PO 06/24/25 06:00 06/27/25 06:42 40 MG Doxycycline Monohydrate 100 mg Q12HR PO 06/25/25 22:00 06/27/25 09:05 100 MG Amiodarone HCl 200 mg Q12HR PO 06/26/25 22:00 06/27/25 09:05 200 MG Apixaban 2.5 mg BID PO 06/27/25 22:00 laboratory and microbiology Laboratory Tests 06/27/25 10:40 06/25/25 06:46 Test 06/27/25 10:40 Range/Units Serum Glucose 113 H 74-106 mg/dL Microbiology Date/Time Source Procedure Growth Status 06/11/25 12:30 Blood Blood Culture - Final NO GROWTH AFTER 5 DAYS OF INCUBATION. Complete Problem List/Assessment/Plan Problem List/Assessment/Plan Acute kidney injury hemodynamic mediated etiology Chronic kidney disease stage 3 a, Dr. 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
--- NOTE | 2025-06-27 12:53 | DVH ---
CHEST RADIOGRAPH Indication: shortness of breath Technique: Single frontal view of the chest was obtained Comparison: XY CHEST PORTABLE on DOS: 06/23/25, XY CHEST PORTABLE on DOS: 06/20/25, XY CHEST XRAY 1 VIE W on DOS: 06/18/25, XY CHEST PORTABLE on DOS: 06/17/25, XY CHEST PORTABLE on DOS: 06/15/25 FINDINGS: Lines and Tubes: Left-sided pacemaker Lungs: No focal consolidation. Pleura: No effusion. No pneumothorax. Cardiomediastinal contours: Cardiomegaly Bones: No acute osseous abnormality. IMPRESSION: Cardiomegaly with CHF
--- NOTE | 2025-06-27 14:32 | DVHPN2 ---
Subjective Cardiac events reported Denies chest pain, palpitations, or shortness of breath Paced rhythm on monitor Reviewed: Care Plan Changes from previous H/P or p: No Changes General: Per HPI Objective Vitals Vital Signs Date Time Temp Pulse Resp B/P (MAP) Pulse Ox O2 Delivery O2 Flow Rate FiO2 06/27/25 11:54 78 18 100 06/27/25 11:48 Nasal Cannula 2.0 06/27/25 11:48 28 06/27/25 09:06 133/72 06/27/25 05:00 98.2 98.2 Intake/Output Intake and Output 06/27/25 07:00 Intake Total 1490 ml Output Total 200 ml Balance 1290 ml Intake Oral 1490 ml Output Urine Total 200 ml # Voids 7 General Appearance: Alert, Oriented X3, Cooperative HEENT: Atraumatic, PERRLA Lungs: Other Chest/Breasts: Other Cardiovascular: Regular rate, Normal S1, Normal S2 Abdomen: Normal bowel sounds, Soft, No tenderness, No hepatospenomegaly Musculoskeletal: Normal sensory function, Normal motor function Neuro: Normal speech, Strength at 5/5 X4 ext, Normal tone, Sensation intact, C ranial nerves 3-12 NL Skin: Dry, Intact Psych/Mental Status: Mental status NL, Mood NL Medications Current Medications Medications Dose Ordered Sig/Payam Route Start Time Stop Time Status Last Admin Dose Admin Sodium Chloride 10 ml Q8HR IV 06/11/25 22:00 06/27/25 06:00 10 ML Docusate Sodium 100 mg BIDPRN PRN PO 06/11/25 19:45 Acetaminophen 650 mg Q6HP PRN PO 06/11/25 19:45 06/27/25 02:16 650 MG Ondansetron HCl 4 mg Q4HP PRN IV 06/11/25 19:45 Hydralazine HCl 10 mg Q6HP PRN IV 06/12/25 15:30 Hydralazine HCl 25 mg BID PO 06/12/25 22:00 06/27/25 09:05 25 MG Allopurinol 100 mg DAILY PO 06/15/25 10:00 06/27/25 09:05 100 MG Albuterol 2.5 mg Q6H NEB 06/16/25 12:00 06/27/25 11:48 2.5 MG Albuterol 2.5 mg Q4HPRN PRN NEB 06/16/25 11:30 Isosorbide Mononitrate 30 mg DAILY PO 06/22/25 10:00 06/27/25 09:06 30 MG Montelukast Sodium 10 mg HS PO 06/21/25 22:00 06/26/25 21:26 10 MG Pantoprazole Sodium 40 mg DAILY@0600 PO 06/24/25 06:00 06/27/25 06:42 40 MG Doxycycline Monohydrate 100 mg Q12HR PO 06/25/25 22:00 06/27/25 09:05 100 MG Amiodarone HCl 200 mg Q12HR PO 06/26/25 22:00 06/27/25 09:05 200 MG Apixaban 2.5 mg BID PO 06/27/25 22:00 Laboratory Results Laboratory Tests 06/25/25 06:46 06/27/25 10:40 Chemistry Test 06/27/25 10:40 Calcium Level 8.9 mg/dL (8.7-10.4) Urinalysis Test 06/23/25 19:39 Urine Color Yellow (Yellow) Urine Clarity Turbid (Clear) H Urine pH 5.5 (5.0-9.0) Urine Specific [place] 1.019 (1.001-1.035) Urine Protein Trace (Negative) H Urine Ketones Negative (Negative) Urine Blood Negative /uL (Negative) Urine Nitrite Negative (Negative) Urine Bilirubin Negative (Negative) Urine Urobilinogen Normal mg/dL (Negative) Urine Leukocyte Esterase 3+ /uL (Negative) Urine RBC 22 /hpf (0 - 4) Urine Microscopic WBC 31 /HPF (0-5) H Urine Squamous Epithelial Cells Few /hpf (<5) Urine Bacteria Few /hpf (None Seen) H Urine Glucose Normal mg/dL (Normal) Microbiology Microbiology Date/Time Source Procedure Growth Status 06/11/25 12:30 Blood Blood Culture - Final NO GROWTH AFTER 5 DAYS OF INCUBATION. Complete Assessment/Plan Assessment/Plan Assessment AFib with RVR, currently paced rhythm s/p Dual chamber PPM with medtronic NSTEMI Symptomatic bradycardia Transient AFib on anticoagulation Acute on chronic diastolic HF (HFpEF) Severe pulmonary hypertension Severe aortic stenosis, s/p TAVR Hypertension COPD Obesity Plan/Recommendation (Dr. Sumner ): Currently paced rhythm in 60s, Transitioned from amiodarone drip to p.o.. Continue with DOAC. Patient developed atrial fibrillation with rapid ventricular response (150- 160bpm). Initial management with IV diltiazem 10 mg was unsuccessful in controlling rate. Patient was subsequently started on amiodarone per protocol. Anticoagulation initiated with therapeutic Lovenox. Chads Vasc score : 4 HAS-BLED: 1 * Continue amiodarone infusion per protocol * Monitor hemodynamic status, electrolytes, and QT interval * Continue therapeutic Lovenox, transition to Eliquis 2.5mg bid on discharge * Pacemaker interrogation once rate is controlled * Close cardiac surveillance This medical document was created using an electronic medical record system with voice recognition software and computerized dictation system. Although this document has been carefully reviewed, there might still be some phonetic and typographical errors. Occasional wrong-word or ``sound-alike substitutions may have occurred due to the inherent limitations of voice recognition software. These areas are purely typographical due to imperfections of the software programs and do not reflect any compromise in the patient's medical care. Please read the chart carefully and recognize, using context, where these substitutions have occurred. Plan discussed with: Patient Symptomatic bradycardia and elevated BP Plan discussed with: Patient NYHA Plan discussed with: Patient My Orders Orders - WILIAN CLAYTON Procedure Category Date Status Time Amiodarone Tablet PHA 06/26/25 In Process (Cordarone Tablet) 22:00 Communication Order ORDERS 06/26/25 Transmitted 17:28 Date of Service: Jun 27, 2025 Billing Provider: CHELY SUMNER MD Common Visit Codes: CONSULT ONLY Consultation Codes: [id number] CONSULT <45MIN WILIAN CLAYTON Jun 27, 2025 14:32
[2025-06-27] MEDS: APIXABAN 2.5 MG TAB PO SCH (21:37)
--- NOTE | 2025-06-27 23:22 | DVHPN2 ---
Consult Progress Note Subjective Other Systems: Patient was seen and evaluated in follow-up. Cardiac events reported. Patient denies chest pain, palpitations, or shortness of breath. Patient is in a paced rhythm on the quality assurance monitor final. BUN 36, FINANCIAL ANALYSIS CONSULTANT 1.94. Telemetry reviewed. Objective vital signs Vital Sign Date Time Temp Pulse Resp B/P (MAP) Pulse Ox O2 Delivery O2 Flow Rate FiO2 06/27/25 11:54 78 18 100 06/27/25 11:48 Nasal Cannula 2.0 06/27/25 11:48 28 06/27/25 09:06 133/72 06/27/25 05:00 98.2 98.2 Total Intake and Output 06/26/25 06/26/25 06/27/25 15:00 23:00 07:00 Intake Total 650 ml 600 ml 240 ml Output Total 200 ml Balance 650 ml 400 ml 240 ml medications Current Medications Medications Dose Ordered Sig/Payam Route Start Time Stop Time Status Last Admin Dose Admin Sodium Chloride 10 ml Q8HR IV 06/11/25 22:00 06/27/25 06:00 10 ML Docusate Sodium 100 mg BIDPRN PRN PO 06/11/25 19:45 Acetaminophen 650 mg Q6HP PRN PO 06/11/25 19:45 06/27/25 02:16 650 MG Ondansetron HCl 4 mg Q4HP PRN IV 06/11/25 19:45 Hydralazine HCl 10 mg Q6HP PRN IV 06/12/25 15:30 Hydralazine HCl 25 mg BID PO 06/12/25 22:00 06/27/25 09:05 25 MG Allopurinol 100 mg DAILY PO 06/15/25 10:00 06/27/25 09:05 100 MG Albuterol 2.5 mg Q6H NEB 06/16/25 12:00 06/27/25 11:48 2.5 MG Albuterol 2.5 mg Q4HPRN PRN NEB 06/16/25 11:30 Isosorbide Mononitrate 30 mg DAILY PO 06/22/25 10:00 06/27/25 09:06 30 MG Montelukast Sodium 10 mg HS PO 06/21/25 22:00 06/26/25 21:26 10 MG Pantoprazole Sodium 40 mg DAILY@0600 PO 06/24/25 06:00 06/27/25 06:42 40 MG Doxycycline Monohydrate 100 mg Q12HR PO 06/25/25 22:00 06/27/25 09:05 100 MG Amiodarone HCl 200 mg Q12HR PO 06/26/25 22:00 06/27/25 09:05 200 MG Apixaban 2.5 mg BID PO 06/27/25 22:00 Examination: GENERAL:Normal, HEENT:Normal, NECK:Normal, LUNGS:Normal, CVS:Normal, ABDOMEN:Normal, MSK:Normal, SKIN:Normal laboratory and microbiology Laboratory Tests 06/27/25 10:40 06/25/25 06:46 Test 06/27/25 10:40 Range/Units Serum Glucose 113 H 74-106 mg/dL Problem List/Assessment/Plan Problem List/Assessment/Plan Problem List AFib with RVR, currently paced rhythm. s/p Dual chamber PPM with medtronic. NSTEMI. Symptomatic bradycardia. Transient AFib on anticoagulation. Acute on chronic diastolic HF (HFpEF). Severe pulmonary hypertension. Severe aortic stenosis, s/p TAVR. Hypertension. COPD. Obesity. Assessment/Plan Continued all current supportive medical care. Patient has been seen by Janie Adams NP on my behalf, her and I discussed the plan with the patient. Currently paced rhythm in 60s, Transitioned from amiodarone drip to p.o.. Continue with DOAC. Patient developed atrial fibrillation with rapid ventricular response (150- 160bpm). Initial management with IV diltiazem 10 mg was unsuccessful in controlling rate. Patient was subsequently started on amiodarone per protocol. Anticoagulation initiated with therapeutic Lovenox. Chads Vasc score : 4. HAS-BLED: 1. Continue amiodarone infusion per protocol. Monitor hemodynamic status, electrolytes, and QT interval. Continue therapeutic Lovenox, transition to Eliquis 2.5mg bid on discharge. Pacemaker interrogation once rate is controlled. Close cardiac surveillance. Additional plan as per the hospital course. Plan discussed with: Patient Dietary Evaluation Review Comments: Nutrition Recommendaiton 1) MVI 1 tab daily 2) Monitor PO intake, lab values, weight trend, and I/O Expected Outcomes/Goals: Lab values to improve Fu 3-5 days Date of Service: Jun 27, 2025 Billing Provider: CHELY SUMNER MD Cardiology Common Codes: [id number] HOSP CARE(High Cardiology Consultation Codes: [id number] CONSULT <45MIN CHELY SUMNER MD Jun 27, 2025 14:50
[2025-06-28] VITALS (18 sets, daily range): BP systolic 111–138; BP diastolic 42–67; PULSE 57–84; RESP 16–22; TEMP 97.9–98.5; O2SAT 96–100
[2025-06-28] MEDS: MELATONIN 5 MG TAB PO ONE (02:15)
[2025-06-28] MEDS: ALBUTEROL SULF 2.5 MG/0.5ML(0.5%) NEB SOLN NEB PRN (04:35)
[2025-06-28 08:51] LABS: Hematocrit 27.5 % (36.0-46.0); Hemoglobin 8.9 g/dL (12.2-16.2); Mean Corpuscular Hemoglobin 31.1 pg (28.0-32.0); Mean Corpuscular Volume 95.6 fL (80.0-100.0); Nucleated Red Blood Cells % 0.1 %
[2025-06-28 09:01] LABS: Chloride 103 mmol/L (98-107); Potassium 4.2 mmol/L (3.5-5.1); Sodium 138 mmol/L (136-145)
[2025-06-28 09:02] LABS: Anion Gap 11 (5-15); Calcium 8.8 mg/dL (8.7-10.4); Carbon Dioxide 24 mmol/L (20-31)
[2025-06-28 09:07] LABS: BUN/Creatinine Ratio 14.7 (10.0-20.0)
[2025-06-28 09:08] LABS: Blood Urea Nitrogen 27 mg/dL (9-23); Glucose 111 mg/dL (74-106)
--- NOTE | 2025-06-28 10:37 | DVHPN2 ---
Progress Note Date Seen: Jun 28, 2025 Medical Necessity Reason Pt with a Central, PICC or Fol: No Objective vital signs Vital Sign Date Time Temp Pulse Resp B/P (MAP) Pulse Ox O2 Delivery O2 Flow Rate FiO2 06/28/25 10:02 138/63 06/28/25 09:00 98.4 84 19 97 98.4 06/28/25 08:00 Nasal Cannula* 2 28 Total Intake and Output 06/27/25 06/27/25 06/28/25 15:00 23:00 07:00 Intake Total 300 ml 185 ml Output Total 225 ml Balance 300 ml -40 ml medications Current Medications Medications Dose Ordered Sig/Payam Route Start Time Stop Time Status Last Admin Dose Admin Sodium Chloride 10 ml Q8HR IV 06/11/25 22:00 06/28/25 05:05 10 ML Docusate Sodium 100 mg BIDPRN PRN PO 06/11/25 19:45 Acetaminophen 650 mg Q6HP PRN PO 06/11/25 19:45 06/27/25 02:16 650 MG Ondansetron HCl 4 mg Q4HP PRN IV 06/11/25 19:45 Hydralazine HCl 10 mg Q6HP PRN IV 06/12/25 15:30 Hydralazine HCl 25 mg BID PO 06/12/25 22:00 06/28/25 09:59 25 MG Allopurinol 100 mg DAILY PO 06/15/25 10:00 06/28/25 10:02 100 MG Albuterol 2.5 mg Q6H NEB 06/16/25 12:00 06/28/25 06:55 2.5 MG Albuterol 2.5 mg Q4HPRN PRN NEB 06/16/25 11:30 06/28/25 04:35 2.5 MG Isosorbide Mononitrate 30 mg DAILY PO 06/22/25 10:00 06/28/25 10:02 30 MG Montelukast Sodium 10 mg HS PO 06/21/25 22:00 06/27/25 21:37 10 MG Pantoprazole Sodium 40 mg DAILY@0600 PO 06/24/25 06:00 06/28/25 05:05 40 MG Doxycycline Monohydrate 100 mg Q12HR PO 06/25/25 22:00 06/28/25 10:00 100 MG Amiodarone HCl 200 mg Q12HR PO 06/26/25 22:00 06/28/25 10:00 200 MG Apixaban 2.5 mg BID PO 06/27/25 22:00 06/28/25 10:00 2.5 MG Examination: GENERAL:Abnormal, SKIN:Normal laboratory and microbiology Laboratory Tests 06/28/25 07:23 Test 06/28/25 07:23 Range/Units Serum Glucose 111 H 74-106 mg/dL Microbiology Date/Time Source Procedure Growth Status 06/11/25 12:30 Blood Blood Culture - Final NO GROWTH AFTER 5 DAYS OF INCUBATION. Complete Problem List/Assessment/Plan Problem List/Assessment/Plan 85-year-old female past medical chronic kidney disease and aortic valve disease presents with shortness of breath Acute kidney injury suspect in the setting of cardiorenal syndrome and hemodynamics Chronic kidney disease stage [address] 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
--- NOTE | 2025-06-28 11:29 | DVHPN2 ---
Progress Note Date Seen: Jun 28, 2025 Medical Necessity Reason Pt with a Central, PICC or Fol: No Subjective Patient reports: No new complaints Review of Systems: HEENT:Normal, CVS:Normal, RESPIRATORY:Normal, GI:Normal, :Normal, MSK:Normal, NEURO:Normal Objective vital signs Vital Sign Date Time Temp Pulse Resp B/P (MAP) Pulse Ox O2 Delivery O2 Flow Rate FiO2 06/28/25 10:02 138/63 06/28/25 09:00 98.4 84 19 97 98.4 06/28/25 08:00 Nasal Cannula* 2 28 Total Intake and Output 06/27/25 06/27/25 06/28/25 15:00 23:00 07:00 Intake Total 300 ml 185 ml Output Total 225 ml Balance 300 ml -40 ml medications Current Medications Medications Dose Ordered Sig/Payam Route Start Time Stop Time Status Last Admin Dose Admin Sodium Chloride 10 ml Q8HR IV 06/11/25 22:00 06/28/25 05:05 10 ML Docusate Sodium 100 mg BIDPRN PRN PO 06/11/25 19:45 Acetaminophen 650 mg Q6HP PRN PO 06/11/25 19:45 06/27/25 02:16 650 MG Ondansetron HCl 4 mg Q4HP PRN IV 06/11/25 19:45 Hydralazine HCl 10 mg Q6HP PRN IV 06/12/25 15:30 Hydralazine HCl 25 mg BID PO 06/12/25 22:00 06/28/25 09:59 25 MG Allopurinol 100 mg DAILY PO 06/15/25 10:00 06/28/25 10:02 100 MG Albuterol 2.5 mg Q6H NEB 06/16/25 12:00 06/28/25 06:55 2.5 MG Albuterol 2.5 mg Q4HPRN PRN NEB 06/16/25 11:30 06/28/25 04:35 2.5 MG Isosorbide Mononitrate 30 mg DAILY PO 06/22/25 10:00 06/28/25 10:02 30 MG Montelukast Sodium 10 mg HS PO 06/21/25 22:00 06/27/25 21:37 10 MG Pantoprazole Sodium 40 mg DAILY@0600 PO 06/24/25 06:00 06/28/25 05:05 40 MG Doxycycline Monohydrate 100 mg Q12HR PO 06/25/25 22:00 06/28/25 10:00 100 MG Amiodarone HCl 200 mg Q12HR PO 06/26/25 22:00 06/28/25 10:00 200 MG Apixaban 2.5 mg BID PO 06/27/25 22:00 06/28/25 10:00 2.5 MG Sildenafil Citrate 20 mg TID@08,14,20 PO 06/28/25 14:00 UNV Examination: GENERAL:Normal, HEENT:Normal, NECK:Normal, LUNGS:Normal, LUNGS:Abnormal (RALES, ON OXYGEN), CVS:Normal, ABDOMEN:Normal, MSK:Normal, SKIN:Normal, NEURO:Normal, :Normal laboratory and microbiology Laboratory Tests 06/28/25 07:23 Test 06/28/25 07:23 Range/Units Serum Glucose 111 H 74-106 mg/dL Microbiology Date/Time Source Procedure Growth Status 06/11/25 12:30 Blood Blood Culture - Final NO GROWTH AFTER 5 DAYS OF INCUBATION. Complete Problem List/Assessment/Plan Problem List/Assessment/Plan #1 acute resp failure: cont oxygen #2 acute on chronic diastolic heart failure: lasix #3 htn #4 morbid obesity #5 acute on chronic renal failure ?vasomotor nephropathy: improving #6 s/p tavr #7 bradycardia/ a flutter: pacer today #8 gout #9 copd ?exacerbation: iv steroids #10 ?pneumonia- gram positive/neg: iv antibiotic, chest xray #11 left ear wax: debrox- dc #12 ? mitral stenosis: fito in am #13 pulmonary htn: revatio advance care planning- full code- time spent 19 mins Plan discussed with: Patient, Son My Orders My Orders Orders - ARI FRAZIER MD Procedure Category Date Status Time Furosemide Injection PHA 06/28/25 Logged (Lasix Injection) 11:30 Basic Metabolic Panel LAB 06/29/25 Verified 06:00 Dietary Evaluation Review Comments: Nutrition Recommendaiton 1) MVI 1 tab daily 2) Monitor PO intake, lab values, weight trend, and I/O Expected Outcomes/Goals: Lab values to improve Fu 3-5 days Date of Service: Jun 28, 2025 Billing Provider: ARI FRAZIER MD Common Visit Codes: [id number] INP/OBS CARE(HIGH) ARI FRAZIER MD Jun 28, 2025 11:29
[2025-06-28] MEDS: FUROSEMIDE 20 MG/2 ML VIAL IV ONE (12:38)
[2025-06-28] MEDS: SILDENAFIL CITRATE 20 MG TAB PO SCH (12:38)
--- NOTE | 2025-06-28 13:43 | DVHPN2 ---
Progress Note Date Seen: Jun 28, 2025 Medical Necessity Reason Pt with a Central, PICC or Fol: No Objective vital signs Vital Sign Date Time Temp Pulse Resp B/P (MAP) Pulse Ox O2 Delivery O2 Flow Rate FiO2 06/28/25 12:38 132/68 06/28/25 12:04 60 18 100 06/28/25 11:58 Nasal Cannula* 2 28 06/28/25 09:00 98.4 98.4 Total Intake and Output 06/27/25 06/27/25 06/28/25 15:00 23:00 07:00 Intake Total 300 ml 185 ml Output Total 225 ml Balance 300 ml -40 ml medications Current Medications Medications Dose Ordered Sig/Payam Route Start Time Stop Time Status Last Admin Dose Admin Sodium Chloride 10 ml Q8HR IV 06/11/25 22:00 06/28/25 12:38 10 ML Docusate Sodium 100 mg BIDPRN PRN PO 06/11/25 19:45 Acetaminophen 650 mg Q6HP PRN PO 06/11/25 19:45 06/27/25 02:16 650 MG Ondansetron HCl 4 mg Q4HP PRN IV 06/11/25 19:45 Hydralazine HCl 10 mg Q6HP PRN IV 06/12/25 15:30 Hydralazine HCl 25 mg BID PO 06/12/25 22:00 06/28/25 09:59 25 MG Allopurinol 100 mg DAILY PO 06/15/25 10:00 06/28/25 10:02 100 MG Albuterol 2.5 mg Q4HPRN PRN NEB 06/16/25 11:30 06/28/25 11:58 2.5 MG Isosorbide Mononitrate 30 mg DAILY PO 06/22/25 10:00 06/28/25 10:02 30 MG Montelukast Sodium 10 mg HS PO 06/21/25 22:00 06/27/25 21:37 10 MG Pantoprazole Sodium 40 mg DAILY@0600 PO 06/24/25 06:00 06/28/25 05:05 40 MG Doxycycline Monohydrate 100 mg Q12HR PO 06/25/25 22:00 06/28/25 10:00 100 MG Amiodarone HCl 200 mg Q12HR PO 06/26/25 22:00 06/28/25 10:00 200 MG Sildenafil Citrate 20 mg TID@08,14,20 PO 06/28/25 14:00 06/28/25 12:38 20 MG Examination: GENERAL:Abnormal, HEENT:Abnormal, LUNGS:Abnormal, CVS:Abnormal, ABDOMEN:Abnormal laboratory and microbiology Laboratory Tests 06/28/25 07:23 Test 06/28/25 07:23 Range/Units Serum Glucose 111 H 74-106 mg/dL Microbiology Date/Time Source Procedure Growth Status 06/11/25 12:30 Blood Blood Culture - Final NO GROWTH AFTER 5 DAYS OF INCUBATION. Complete Problem List/Assessment/Plan Problem List/Assessment/Plan sp tavr diastolc advanced HF CKD advanced morbid obesity HTN pulm htn sp PPM for sick sinus/ intermittent 2: 1 block , on doxycycline for abx could add revatio, minimal help prob 2:1 av block, possible PPM for sinus rates 40s off BB, cont renal eval--renal function much better now consider PT/OT placement if indicated AFIB--- amiodarone moderate MS--ROLY planned for AM ongoing progressive sob, multifacctorial, diastolic HF, ckd, morbid obesity , pulm htn, afib, vavlular heart disease consider home o2 pt/ot prognosis is guarded Plan discussed with: Patient My Orders My Orders Orders - JENN TORRE MD Procedure Category Date Status Time Echo Roly Complete BD 06/28/25 Transmitted 10:54 Sildenafil Citrate PHA 06/28/25 In Process (Revatio) 14:00 Dietary Evaluation Review Comments: Nutrition Recommendaiton 1) MVI 1 tab daily 2) Monitor PO intake, lab values, weight trend, and I/O Expected Outcomes/Goals: Lab values to improve Fu 3-5 days Date of Service: Jun 28, 2025 Billing Provider: JENN TORRE MD Common Visit Codes: NOT BILLABLE JENN TORRE MD Jun 28, 2025 13:43
[2025-06-28] MEDS: ALPRAZolam 0.5 MG TAB PO PRN (17:28)
[2025-06-29] VITALS (10 sets, daily range): BP systolic 92–144; BP diastolic 40–60; PULSE 60–87; RESP 17–22; TEMP 97.9–98.4; O2SAT 92–100
--- NOTE | 2025-06-29 00:31 | DVHPN2 ---
Progress Note - Dictate Date Seen: Jun 28, 2025 Medical Necessity Reason Pt with a Central, PICC or Fol: No Subjective Patient was seen and evaluated in follow up. Patient is on 2 LPM NC. WBC 11.7, HGB 8.9, HCT 27.5, BUN 27, Lead Nurse 1.84. Echocardiogram planned for morning. Telemetry reviewed. vital signs Vital Sign Date Time Temp Pulse Resp B/P (MAP) Pulse Ox O2 Delivery O2 Flow Rate FiO2 06/28/25 22:17 118/50 06/28/25 20:43 98.2 84 18 98 98.2 06/28/25 11:58 Nasal Cannula* 2 28 Total Intake and Output 06/28/25 06/28/25 06/29/25 15:00 23:00 07:00 Intake Total 480 ml Balance 480 ml medications Current Medications Medications Dose Ordered Sig/Payam Route Start Time Stop Time Status Last Admin Dose Admin Sodium Chloride 10 ml Q8HR IV 06/11/25 22:00 06/28/25 22:18 10 ML Docusate Sodium 100 mg BIDPRN PRN PO 06/11/25 19:45 Acetaminophen 650 mg Q6HP PRN PO 06/11/25 19:45 06/27/25 02:16 650 MG Ondansetron HCl 4 mg Q4HP PRN IV 06/11/25 19:45 Hydralazine HCl 10 mg Q6HP PRN IV 06/12/25 15:30 Hydralazine HCl 25 mg BID PO 06/12/25 22:00 06/28/25 22:17 25 MG Allopurinol 100 mg DAILY PO 06/15/25 10:00 06/28/25 10:02 100 MG Albuterol 2.5 mg Q4HPRN PRN NEB 06/16/25 11:30 06/28/25 11:58 2.5 MG Isosorbide Mononitrate 30 mg DAILY PO 06/22/25 10:00 06/28/25 10:02 30 MG Montelukast Sodium 10 mg HS PO 06/21/25 22:00 06/28/25 22:15 10 MG Pantoprazole Sodium 40 mg DAILY@0600 PO 06/24/25 06:00 06/28/25 05:05 40 MG Doxycycline Monohydrate 100 mg Q12HR PO 06/25/25 22:00 06/28/25 22:17 100 MG Amiodarone HCl 200 mg Q12HR PO 06/26/25 22:00 06/28/25 22:17 200 MG Sildenafil Citrate 20 mg TID@08,14,20 PO 06/28/25 14:00 06/28/25 22:16 20 MG Alprazolam 0.5 mg Q8HPRN PRN PO 06/28/25 16:30 06/28/25 17:28 0.5 MG objective GENERAL: Alert and oriented x 3. No acute distress. EYES: PERRL, EOMI. Anicteric. HENT: Moist mucous membranes. LUNGS: Clear to auscultation bilaterally. CARDIOVASCULAR: Regular rate and rhythm. ABDOMEN: Soft, nontender and nondistended. EXTREMITIES: No edema. NEUROLOGIC: No focal neurological deficits. SKIN: Warm, dry. laboratory and microbiology Laboratory Tests 06/28/25 07:23 Test 06/28/25 07:23 Range/Units Serum Glucose 111 H 74-106 mg/dL Problem List AFib with RVR, currently paced rhythm. s/p Dual chamber PPM with medtronic. NSTEMI. Symptomatic bradycardia. Transient AFib on anticoagulation. Acute on chronic diastolic HF (HFpEF). Severe pulmonary hypertension. Severe aortic stenosis, s/p TAVR. Hypertension. COPD. Obesity. Assessment/Plan Continued all current supportive medical care. Pacemaker interrogation once rate is controlled. Close cardiac surveillance. Amiodarone. Oral antibiotics. IV Hydralazine for SBP > 150. Hydralazine. GI prophylactics. Additional plan as per the hospital course. Dietary Evaluation Review Comments: Nutrition Recommendaiton 1) MVI 1 tab daily 2) Monitor PO intake, lab values, weight trend, and I/O Expected Outcomes/Goals: Lab values to improve Fu 3-5 days Plan discussed with: Patient CHELY SUMNER MD Jun 29, 2025 00:31
[2025-06-29 07:40] LABS: Chloride 105 mmol/L (98-107); Potassium 4.6 mmol/L (3.5-5.1); Sodium 139 mmol/L (136-145)
[2025-06-29 07:42] LABS: Anion Gap 10 (5-15); Calcium 8.8 mg/dL (8.7-10.4); Carbon Dioxide 24 mmol/L (20-31)
[2025-06-29 07:47] LABS: BUN/Creatinine Ratio 12.5 (10.0-20.0); Glucose 97 mg/dL (74-106)
[2025-06-29 08:09] LABS: Blood Urea Nitrogen 25 mg/dL (9-23)
--- NOTE | 2025-06-29 09:42 | DVHPN2 ---
Progress Note Date Seen: Jun 29, 2025 Medical Necessity Reason Pt with a Central, PICC or Fol: No Subjective Patient reports: No new complaints Objective vital signs Vital Sign Date Time Temp Pulse Resp B/P (MAP) Pulse Ox O2 Delivery O2 Flow Rate FiO2 06/29/25 08:00 Nasal Cannula* 2 28 06/29/25 07:17 98 06/29/25 05:00 98.2 60 22 144/43 (76) 98.2 Total Intake and Output 06/28/25 06/28/25 06/29/25 14:59 22:59 06:59 Intake Total 480 ml 200 ml Output Total 160 ml Balance 480 ml 40 ml medications Current Medications Medications Dose Ordered Sig/Payam Route Start Time Stop Time Status Last Admin Dose Admin Sodium Chloride 10 ml Q8HR IV 06/11/25 22:00 06/29/25 06:13 10 ML Docusate Sodium 100 mg BIDPRN PRN PO 06/11/25 19:45 Acetaminophen 650 mg Q6HP PRN PO 06/11/25 19:45 06/27/25 02:16 650 MG Ondansetron HCl 4 mg Q4HP PRN IV 06/11/25 19:45 Hydralazine HCl 10 mg Q6HP PRN IV 06/12/25 15:30 Hydralazine HCl 25 mg BID PO 06/12/25 22:00 06/28/25 22:17 25 MG Allopurinol 100 mg DAILY PO 06/15/25 10:00 06/28/25 10:02 100 MG Albuterol 2.5 mg Q4HPRN PRN NEB 06/16/25 11:30 06/28/25 11:58 2.5 MG Isosorbide Mononitrate 30 mg DAILY PO 06/22/25 10:00 06/28/25 10:02 30 MG Montelukast Sodium 10 mg HS PO 06/21/25 22:00 06/28/25 22:15 10 MG Pantoprazole Sodium 40 mg DAILY@0600 PO 06/24/25 06:00 06/29/25 06:12 40 MG Doxycycline Monohydrate 100 mg Q12HR PO 06/25/25 22:00 06/28/25 22:17 100 MG Amiodarone HCl 200 mg Q12HR PO 06/26/25 22:00 06/28/25 22:17 200 MG Sildenafil Citrate 20 mg TID@08,14,20 PO 06/28/25 14:00 06/28/25 22:16 20 MG Alprazolam 0.5 mg Q8HPRN PRN PO 06/28/25 16:30 06/29/25 01:30 0.5 MG Examination: GENERAL:Abnormal, LUNGS:Abnormal, CVS:Abnormal laboratory and microbiology Laboratory Tests 06/29/25 06:41 06/28/25 07:23 Test 06/29/25 06:41 Range/Units Serum Glucose 97 74-106 mg/dL Microbiology Date/Time Source Procedure Growth Status 06/11/25 12:30 Blood Blood Culture - Final NO GROWTH AFTER 5 DAYS OF INCUBATION. Complete Problem List/Assessment/Plan Problem List/Assessment/Plan 85-year-old female past medical chronic kidney disease and aortic valve disease presents with shortness of breath Acute kidney injury suspect in the setting of cardiorenal syndrome and hemodynamics Chronic kidney disease stage 3 a, Dr. 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
--- NOTE | 2025-06-29 11:08 | DVHPN2 ---
Progress Note Date Seen: Jun 29, 2025 Medical Necessity Reason Pt with a Central, PICC or Fol: No Subjective Patient reports: No new complaints Review of Systems: HEENT:Normal, CVS:Normal, RESPIRATORY:Normal, GI:Normal, :Normal, MSK:Normal, NEURO:Normal Objective vital signs Vital Sign Date Time Temp Pulse Resp B/P (MAP) Pulse Ox O2 Delivery O2 Flow Rate FiO2 06/29/25 10:00 124/62 06/29/25 09:00 98.1 80 18 97 98.1 06/29/25 08:00 Nasal Cannula* 2 28 Total Intake and Output 06/28/25 06/28/25 06/29/25 15:00 23:00 07:00 Intake Total 480 ml 200 ml Output Total 160 ml Balance 480 ml 40 ml medications Current Medications Medications Dose Ordered Sig/Payam Route Start Time Stop Time Status Last Admin Dose Admin Sodium Chloride 10 ml Q8HR IV 06/11/25 22:00 06/29/25 06:13 10 ML Docusate Sodium 100 mg BIDPRN PRN PO 06/11/25 19:45 Acetaminophen 650 mg Q6HP PRN PO 06/11/25 19:45 06/27/25 02:16 650 MG Ondansetron HCl 4 mg Q4HP PRN IV 06/11/25 19:45 Hydralazine HCl 10 mg Q6HP PRN IV 06/12/25 15:30 Hydralazine HCl 25 mg BID PO 06/12/25 22:00 06/29/25 09:56 25 MG Allopurinol 100 mg DAILY PO 06/15/25 10:00 06/29/25 09:53 100 MG Albuterol 2.5 mg Q4HPRN PRN NEB 06/16/25 11:30 06/28/25 11:58 2.5 MG Isosorbide Mononitrate 30 mg DAILY PO 06/22/25 10:00 06/29/25 10:00 30 MG Montelukast Sodium 10 mg HS PO 06/21/25 22:00 06/28/25 22:15 10 MG Pantoprazole Sodium 40 mg DAILY@0600 PO 06/24/25 06:00 06/29/25 06:12 40 MG Doxycycline Monohydrate 100 mg Q12HR PO 06/25/25 22:00 06/29/25 09:52 100 MG Amiodarone HCl 200 mg Q12HR PO 06/26/25 22:00 06/29/25 09:45 200 MG Sildenafil Citrate 20 mg TID@08,14,20 PO 06/28/25 14:00 06/29/25 09:52 20 MG Alprazolam 0.5 mg Q8HPRN PRN PO 06/28/25 16:30 06/29/25 01:30 0.5 MG Examination: GENERAL:Normal, HEENT:Normal, NECK:Normal, LUNGS:Normal, LUNGS:Abnormal (ON OXYGEN), CVS:Normal, ABDOMEN:Normal, MSK:Normal, SKIN:Normal, NEURO:Normal, :Normal laboratory and microbiology Laboratory Tests 06/29/25 06:41 06/28/25 07:23 Test 06/29/25 06:41 Range/Units Serum Glucose 97 74-106 mg/dL Microbiology Date/Time Source Procedure Growth Status 06/11/25 12:30 Blood Blood Culture - Final NO GROWTH AFTER 5 DAYS OF INCUBATION. Complete Problem List/Assessment/Plan Problem List/Assessment/Plan #1 acute resp failure: cont oxygen #2 acute on chronic diastolic heart failure: lasix #3 htn #4 morbid obesity #5 acute on chronic renal failure ?vasomotor nephropathy: improving #6 s/p tavr #7 bradycardia/ a flutter: pacer #8 gout #9 copd ?exacerbation #10 ?pneumonia- gram positive/neg: antibiotic, chest xray #11 left ear wax: debrox- dc #12 ? mitral stenosis: fito #13 pulmonary htn: revatio advance care planning- full code- time spent 19 mins Plan discussed with: Patient My Orders My Orders Orders - ARI FRAZIER MD Procedure Category Date Status Time Alprazolam Tablet PHA 06/28/25 In Process (Xanax Tablet) 16:30 Saline (Placer Nasal PHA 06/29/25 Verified [place]) 11:15 Saline (Placer Nasal PHA 06/29/25 Verified [place]) 12:00 Furosemide Tablet PHA 06/29/25 Verified (Lasix Tablet) 11:15 Furosemide Tablet PHA 06/30/25 Verified (Lasix Tablet) 10:00 Complete Blood Count LAB 06/30/25 Verified 06:00 Comprehensive LAB 06/30/25 Verified Metabolic Panel 06:00 Chest Portable XY 06/30/25 Verified 06:00 Dietary Evaluation Review Comments: Nutrition Recommendaiton 1) MVI 1 tab daily 2) Monitor PO intake, lab values, weight trend, and I/O Expected Outcomes/Goals: Lab values to improve Fu 3-5 days Date of Service: Jun 29, 2025 Billing Provider: ARI FRAZIER MD Common Visit Codes: [id number] INP/OBS CARE(HIGH) ARI FRAZIER MD Jun 29, 2025 11:08
[2025-06-29] MEDS: FUROSEMIDE 40 MG TAB PO ONE (11:33)
[2025-06-29] MEDS: SALINE 0.65 % NASAL SPRAY 45ML BOTTLE EACHNOSTRI ONE (11:34)
[2025-06-29] MEDS: SALINE 0.65 % NASAL SPRAY 45ML BOTTLE EACHNOSTRI SCH (11:59)
--- NOTE | 2025-06-29 23:00 | DVHPN2 ---
Progress Note - Dictate Date Seen: Jun 29, 2025 Medical Necessity Reason Pt with a Central, PICC or Fol: No Subjective Patient was seen and evaluated in follow up. Patient is on 2 LPM NC. BUN 25, Installation Supervisor 2.00. Patient transitioned to p.o. Lasix. Chest x-ray is pending. Telemetry reviewed. vital signs Vital Sign Date Time Temp Pulse Resp B/P (MAP) Pulse Ox O2 Delivery O2 Flow Rate FiO2 06/29/25 21:37 105/42 06/29/25 21:00 98.2 87 17 96 98.2 06/29/25 18:50 Nasal Cannula 2.0 06/29/25 18:50 28 Total Intake and Output 06/28/25 06/28/25 06/29/25 15:00 23:00 07:00 Intake Total 480 ml 200 ml Output Total 160 ml Balance 480 ml 40 ml medications Current Medications Medications Dose Ordered Sig/Payam Route Start Time Stop Time Status Last Admin Dose Admin Sodium Chloride 10 ml Q8HR IV 06/11/25 22:00 06/29/25 21:37 10 ML Docusate Sodium 100 mg BIDPRN PRN PO 06/11/25 19:45 Acetaminophen 650 mg Q6HP PRN PO 06/11/25 19:45 06/27/25 02:16 650 MG Ondansetron HCl 4 mg Q4HP PRN IV 06/11/25 19:45 Hydralazine HCl 10 mg Q6HP PRN IV 06/12/25 15:30 Hydralazine HCl 25 mg BID PO 06/12/25 22:00 06/29/25 09:56 25 MG Allopurinol 100 mg DAILY PO 06/15/25 10:00 06/29/25 09:53 100 MG Albuterol 2.5 mg Q4HPRN PRN NEB 06/16/25 11:30 06/28/25 11:58 2.5 MG Isosorbide Mononitrate 30 mg DAILY PO 06/22/25 10:00 06/29/25 10:00 30 MG Montelukast Sodium 10 mg HS PO 06/21/25 22:00 06/29/25 21:56 10 MG Pantoprazole Sodium 40 mg DAILY@0600 PO 06/24/25 06:00 06/29/25 06:12 40 MG Doxycycline Monohydrate 100 mg Q12HR PO 06/25/25 22:00 06/29/25 21:56 100 MG Amiodarone HCl 200 mg Q12HR PO 06/26/25 22:00 06/29/25 21:56 200 MG Sildenafil Citrate 20 mg TID@08,14,20 PO 06/28/25 14:00 06/29/25 20:19 20 MG Alprazolam 0.5 mg Q8HPRN PRN PO 06/28/25 16:30 06/29/25 01:30 0.5 MG Sodium Chloride 1 spr QID EACHNOSTRI 06/29/25 12:00 06/29/25 21:57 1 SPR Furosemide 40 mg DAILY PO 06/30/25 10:00 objective GENERAL: Alert and oriented x 3. No acute distress. EYES: PERRL, EOMI. Anicteric. HENT: Moist mucous membranes. LUNGS: Clear to auscultation bilaterally. CARDIOVASCULAR: Regular rate and rhythm. ABDOMEN: Soft, nontender and nondistended. EXTREMITIES: No edema. NEUROLOGIC: No focal neurological deficits. SKIN: Warm, dry. laboratory and microbiology Laboratory Tests 06/29/25 06:41 06/28/25 07:23 Test 06/29/25 06:41 Range/Units Serum Glucose 97 74-106 mg/dL Problem List AFib with RVR, currently paced rhythm. s/p Dual chamber PPM with medtronic. NSTEMI. Symptomatic bradycardia. Transient AFib on anticoagulation. Acute on chronic diastolic HF (HFpEF). Severe pulmonary hypertension. Severe aortic stenosis, s/p TAVR. Hypertension. COPD. Obesity. Assessment/Plan Continued all current supportive medical care. Amiodarone. Oral antibiotics. Diuretics with Lasix. IV Hydralazine for SBP > 150. Hydralazine. GI prophylactics. Additional plan as per the hospital course. Dietary Evaluation Review Comments: Nutrition Recommendaiton 1) MVI 1 tab daily 2) Monitor PO intake, lab values, weight trend, and I/O Expected Outcomes/Goals: Lab values to improve Fu 3-5 days Plan discussed with: Patient CHELY SUMNER MD Jun 29, 2025 23:00
[2025-06-30] VITALS (13 sets, daily range): BP systolic 112–140; BP diastolic 34–69; PULSE 66–94; RESP 17–21; TEMP 98–99.1; O2SAT 95–99
--- NOTE | 2025-06-30 07:23 | DVH ---
CHEST RADIOGRAPH Indication:CHF Technique: Single frontal view of the chest was obtained COMPARISON: 06/27/2025 FINDINGS: Lines and Tubes: None. Left anterior chest wall cardiac pacing device. Lungs: Stable appearing diffuse increased prominence of the pulmonary vasculature. No evidence of foc al consolidation. Pleura: No definite effusion. No pneumothorax. Cardiomediastinal contours: Unremarkable Bones: Unremarkable IMPRESSION: 1. No acute disease. Stable appearing diffuse increased prominence of the pulmonary vasculature.
[2025-06-30 08:11] LABS: Hematocrit 25.7 % (36.0-46.0); Hemoglobin 8.8 g/dL (12.2-16.2); Mean Corpuscular Hemoglobin 31.9 pg (28.0-32.0); Mean Corpuscular Volume 93.6 fL (80.0-100.0); Nucleated Red Blood Cells % 0.1 %
[2025-06-30 08:24] LABS: Alanine Aminotransferase 13 U/L (7-40); Albumin 3.5 g/dL (3.2-4.8); Alkaline Phosphatase 55 U/L (46-116); Anion Gap 10 (5-15); BUN/Creatinine Ratio 15.3 (10.0-20.0); Bilirubin, Total 0.6 mg/dL (0.2-1.0); Calcium 9.1 mg/dL (8.7-10.4); Carbon Dioxide 25 mmol/L (20-31); Chloride 104 mmol/L (98-107); Glucose 98 mg/dL (74-106); Potassium 4.2 mmol/L (3.5-5.1); Sodium 139 mmol/L (136-145); Total Protein 6.0 g/dL (5.7-8.2)
[2025-06-30 08:26] LABS: Blood Urea Nitrogen 31 mg/dL (9-23)
[2025-06-30] MEDS: FUROSEMIDE 40 MG TAB PO SCH (10:03)
--- NOTE | 2025-06-30 12:36 | DVHPN2 ---
Progress Note Date Seen: Jun 30, 2025 Medical Necessity Reason Pt with a Central, PICC or Fol: No Subjective Patient reports: No new complaints Review of Systems: HEENT:Normal, CVS:Normal, RESPIRATORY:Normal, GI:Normal, :Normal, MSK:Normal, NEURO:Normal Objective vital signs Vital Sign Date Time Temp Pulse Resp B/P (MAP) Pulse Ox O2 Delivery O2 Flow Rate FiO2 06/30/25 10:03 118/67 06/30/25 09:00 98.1 76 17 97 98.1 06/30/25 08:00 Nasal Cannula* 3 32 Total Intake and Output 06/29/25 06/29/25 06/30/25 15:00 23:00 07:00 Intake Total 500 ml 500 ml Output Total 625 ml Balance -125 ml 500 ml medications Current Medications Medications Dose Ordered Sig/Payam Route Start Time Stop Time Status Last Admin Dose Admin Sodium Chloride 10 ml Q8HR IV 06/11/25 22:00 06/30/25 06:07 10 ML Docusate Sodium 100 mg BIDPRN PRN PO 06/11/25 19:45 Acetaminophen 650 mg Q6HP PRN PO 06/11/25 19:45 06/30/25 02:25 650 MG Ondansetron HCl 4 mg Q4HP PRN IV 06/11/25 19:45 Hydralazine HCl 10 mg Q6HP PRN IV 06/12/25 15:30 Hydralazine HCl 25 mg BID PO 06/12/25 22:00 06/29/25 09:56 25 MG Allopurinol 100 mg DAILY PO 06/15/25 10:00 06/30/25 10:03 100 MG Albuterol 2.5 mg Q4HPRN PRN NEB 06/16/25 11:30 06/28/25 11:58 2.5 MG Isosorbide Mononitrate 30 mg DAILY PO 06/22/25 10:00 06/30/25 10:02 30 MG Montelukast Sodium 10 mg HS PO 06/21/25 22:00 06/29/25 21:56 10 MG Pantoprazole Sodium 40 mg DAILY@0600 PO 06/24/25 06:00 06/30/25 06:08 40 MG Doxycycline Monohydrate 100 mg Q12HR PO 06/25/25 22:00 06/30/25 10:03 100 MG Amiodarone HCl 200 mg Q12HR PO 06/26/25 22:00 06/30/25 10:02 200 MG Sildenafil Citrate 20 mg TID@08,14,20 PO 06/28/25 14:00 06/30/25 08:33 20 MG Alprazolam 0.5 mg Q8HPRN PRN PO 06/28/25 16:30 06/30/25 08:36 0.5 MG Sodium Chloride 1 spr QID EACHNOSTRI 06/29/25 12:00 06/30/25 06:08 1 SPR Furosemide 40 mg DAILY PO 06/30/25 10:00 06/30/25 10:03 40 MG Examination: GENERAL:Normal, HEENT:Normal, NECK:Normal, LUNGS:Normal, LUNGS:Abnormal (ON OXYGEN), CVS:Normal, ABDOMEN:Normal, MSK:Normal, SKIN:Normal, NEURO:Normal, :Normal laboratory and microbiology Laboratory Tests 06/30/25 07:20 Test 06/30/25 07:20 Range/Units Serum Glucose 98 74-106 mg/dL Microbiology Date/Time Source Procedure Growth Status 06/11/25 12:30 Blood Blood Culture - Final NO GROWTH AFTER 5 DAYS OF INCUBATION. Complete Problem List/Assessment/Plan Problem List/Assessment/Plan #1 acute resp failure: cont oxygen #2 acute on chronic diastolic heart failure: lasix #3 htn #4 morbid obesity #5 acute on chronic renal failure ?vasomotor nephropathy: improving #6 s/p tavr #7 bradycardia/ a flutter: pacer #8 gout #9 copd ?exacerbation #10 ?pneumonia- gram positive/neg: antibiotic, chest xray #11 left ear wax: debrox- dc #12 ? mitral stenosis: fito #13 pulmonary htn: revatio advance care planning- full code- time spent 19 mins Plan discussed with: Patient Dietary Evaluation Review Comments: Nutrition Recommendaiton 1) MVI 1 tab daily 2) Monitor PO intake, lab values, weight trend, and I/O Expected Outcomes/Goals: Lab values to improve Fu 3-5 days Date of Service: Jun 30, 2025 Billing Provider: ARI FRAZIER MD Common Visit Codes: [id number] INP/OBS CARE(HIGH) ARI FRAZIER MD Jun 30, 2025 12:36
--- NOTE | 2025-06-30 23:09 | DVHPN2 ---
Progress Note - Dictate Date Seen: Jun 30, 2025 Medical Necessity Reason Pt with a Central, PICC or Fol: No Subjective Patient was seen and evaluated in follow up. Patient is on 2 LPM NC. TOMMY has been rescheduled for tomorrow 07/01. Patient to be NPO after midnight. HGB 8.8, HCT 25.7, BUN 31, ENVIRONMENTAL PROTECTION INSPECTOR 2.03. Chest x-ray shows stable appearing diffuse increased prominence of the pulmonary vasculature. Telemetry reviewed. vital signs Vital Sign Date Time Temp Pulse Resp B/P (MAP) Pulse Ox O2 Delivery O2 Flow Rate FiO2 06/30/25 13:00 98.0 66 18 133/51 (78) 98 98.0 06/30/25 08:00 Nasal Cannula* 3 32 Total Intake and Output 06/29/25 06/29/25 06/30/25 15:00 23:00 07:00 Intake Total 500 ml 500 ml Output Total 625 ml Balance -125 ml 500 ml medications Current Medications Medications Dose Ordered Sig/Payam Route Start Time Stop Time Status Last Admin Dose Admin Sodium Chloride 10 ml Q8HR IV 06/11/25 22:00 06/30/25 14:00 10 ML Docusate Sodium 100 mg BIDPRN PRN PO 06/11/25 19:45 Acetaminophen 650 mg Q6HP PRN PO 06/11/25 19:45 06/30/25 02:25 650 MG Ondansetron HCl 4 mg Q4HP PRN IV 06/11/25 19:45 Hydralazine HCl 10 mg Q6HP PRN IV 06/12/25 15:30 Hydralazine HCl 25 mg BID PO 06/12/25 22:00 06/29/25 09:56 25 MG Allopurinol 100 mg DAILY PO 06/15/25 10:00 06/30/25 10:03 100 MG Albuterol 2.5 mg Q4HPRN PRN NEB 06/16/25 11:30 06/28/25 11:58 2.5 MG Isosorbide Mononitrate 30 mg DAILY PO 06/22/25 10:00 06/30/25 10:02 30 MG Montelukast Sodium 10 mg HS PO 06/21/25 22:00 06/29/25 21:56 10 MG Pantoprazole Sodium 40 mg DAILY@0600 PO 06/24/25 06:00 06/30/25 06:08 40 MG Doxycycline Monohydrate 100 mg Q12HR PO 06/25/25 22:00 06/30/25 10:03 100 MG Amiodarone HCl 200 mg Q12HR PO 06/26/25 22:00 06/30/25 10:02 200 MG Sildenafil Citrate 20 mg TID@08,14,20 PO 06/28/25 14:00 06/30/25 08:33 20 MG Alprazolam 0.5 mg Q8HPRN PRN PO 06/28/25 16:30 06/30/25 08:36 0.5 MG Sodium Chloride 1 spr QID EACHNOSTRI 06/29/25 12:00 06/30/25 06:08 1 SPR Furosemide 40 mg DAILY PO 06/30/25 10:00 06/30/25 10:03 40 MG objective GENERAL: Alert and oriented x 3. No acute distress. EYES: PERRL, EOMI. Anicteric. HENT: Moist mucous membranes. LUNGS: Clear to auscultation bilaterally. CARDIOVASCULAR: Regular rate and rhythm. ABDOMEN: Soft, nontender and nondistended. EXTREMITIES: No edema. NEUROLOGIC: No focal neurological deficits. SKIN: Warm, dry. laboratory and microbiology Laboratory Tests 06/30/25 07:20 Test 06/30/25 07:20 Range/Units Serum Glucose 98 74-106 mg/dL Problem List AFib with RVR, currently paced rhythm. s/p Dual chamber PPM with medtronic. NSTEMI. Symptomatic bradycardia. Transient AFib on anticoagulation. Acute on chronic diastolic HF (HFpEF). Severe pulmonary hypertension. Severe aortic stenosis, s/p TAVR. Hypertension. COPD. Obesity. Assessment/Plan Continued all current supportive medical care. Amiodarone. Oral antibiotics. Diuretics with Lasix. IV Hydralazine for SBP > 150. GI prophylactics. Additional plan as per the hospital course. Dietary Evaluation Review Comments: Nutrition Recommendaiton 1) MVI 1 tab daily 2) Monitor PO intake, lab values, weight trend, and I/O Expected Outcomes/Goals: Lab values to improve Fu 3-5 days Plan discussed with: Patient CHELY SUMNER MD Jun 30, 2025 15:01
[2025-07-01] VITALS (21 sets, daily range): BP systolic 87–130; BP diastolic 23–58; PULSE 60–85; RESP 16–22; TEMP 97.9–98.9; O2SAT 93–100
[2025-07-01 08:12] LABS: Calcium 9.1 mg/dL (8.7-10.4); Chloride 104 mmol/L (98-107); Potassium 3.8 mmol/L (3.5-5.1); Sodium 140 mmol/L (136-145)
[2025-07-01 08:13] LABS: Anion Gap 13 (5-15); Carbon Dioxide 23 mmol/L (20-31)
[2025-07-01 08:18] LABS: BUN/Creatinine Ratio 15.7 (10.0-20.0); Glucose 92 mg/dL (74-106)
[2025-07-01 08:24] LABS: Blood Urea Nitrogen 30 mg/dL (9-23)
[2025-07-01] MEDS: LIDOCAINE VISCOUS 2% 15ML UD PO ONE (14:25)
[2025-07-01] MEDS: fentaNYL CITRATE 100 MCG/2 ML VL IV ONE (14:29)
[2025-07-01] MEDS: MIDAZOLAM HCL 2MG/2ML 2ml VIAL (1mg/ml) IV ONE (14:29)
--- NOTE | 2025-07-01 15:24 | DVHPN2 ---
Progress Note Date Seen: Jul 01, 2025 Medical Necessity Reason Pt with a Central, PICC or Fol: No Subjective Patient reports: Feels better Objective vital signs Vital Sign Date Time Temp Pulse Resp B/P (MAP) Pulse Ox O2 Delivery O2 Flow Rate FiO2 07/01/25 12:56 98.0 60 16 119/58 (78) 97 98.0 07/01/25 08:00 Nasal Cannula* 3 32 Total Intake and Output 06/30/25 06/30/25 07/01/25 15:00 23:00 07:00 Intake Total 625 ml 350 ml Balance 625 ml 350 ml medications Current Medications Medications Dose Ordered Sig/Payam Route Start Time Stop Time Status Last Admin Dose Admin Sodium Chloride 10 ml Q8HR IV 06/11/25 22:00 07/01/25 05:49 10 ML Docusate Sodium 100 mg BIDPRN PRN PO 06/11/25 19:45 Acetaminophen 650 mg Q6HP PRN PO 06/11/25 19:45 06/30/25 02:25 650 MG Ondansetron HCl 4 mg Q4HP PRN IV 06/11/25 19:45 Hydralazine HCl 10 mg Q6HP PRN IV 06/12/25 15:30 Hydralazine HCl 25 mg BID PO 06/12/25 22:00 06/29/25 09:56 25 MG Allopurinol 100 mg DAILY PO 06/15/25 10:00 06/30/25 10:03 100 MG Albuterol 2.5 mg Q4HPRN PRN NEB 06/16/25 11:30 06/28/25 11:58 2.5 MG Isosorbide Mononitrate 30 mg DAILY PO 06/22/25 10:00 06/30/25 10:02 30 MG Montelukast Sodium 10 mg HS PO 06/21/25 22:00 06/30/25 21:52 10 MG Pantoprazole Sodium 40 mg DAILY@0600 PO 06/24/25 06:00 07/01/25 05:49 40 MG Doxycycline Monohydrate 100 mg Q12HR PO 06/25/25 22:00 06/30/25 22:03 100 MG Amiodarone HCl 200 mg Q12HR PO 06/26/25 22:00 06/30/25 22:03 200 MG Sildenafil Citrate 20 mg TID@08,,20 PO 06/28/25 14:00 06/30/25 20:08 20 MG Alprazolam 0.5 mg Q8HPRN PRN PO 06/28/25 16:30 06/30/25 08:36 0.5 MG Sodium Chloride 1 spr QID EACHNOSTRI 06/29/25 12:00 06/30/25 18:18 1 SPR Furosemide 40 mg DAILY PO 06/30/25 10:00 06/30/25 10:03 40 MG Examination: GENERAL:Abnormal, HEENT:Abnormal, LUNGS:Abnormal, CVS:Abnormal, ABDOMEN:Abnormal laboratory and microbiology Laboratory Tests 07/01/25 06:53 06/30/25 07:20 Test 07/01/25 06:53 Range/Units Serum Glucose 92 74-106 mg/dL Microbiology Date/Time Source Procedure Growth Status 06/11/25 12:30 Blood Blood Culture - Final NO GROWTH AFTER 5 DAYS OF INCUBATION. Complete Problem List/Assessment/Plan Problem List/Assessment/Plan sp tavr diastolc advanced HF CKD advanced morbid obesity HTN pulm htn sp PPM for sick sinus/ intermittent 2: 1 block , on doxycycline for abx could add revatio, minimal help prob 2:1 av block, possible PPM for sinus rates 40s off BB, cont renal eval--renal function much better now consider PT/OT placement if indicated AFIB--- amiodarone severe MS---noted on TOMMY today, HR in 60s, will review options prognosis is guarded Plan discussed with: Patient My Orders My Orders Orders - JENN TORRE MD Procedure Category Date Status Time Post Cath Vital Signs MOODY 07/01/25 In Process Q 15min Communication Order ORDERS 07/01/25 Transmitted 15:17 Dietary Evaluation Review Comments: Nutrition Recommendaiton 1) MVI 1 tab daily 2) Monitor PO intake, lab values, weight trend, and I/O Expected Outcomes/Goals: Lab values to improve Fu 3-5 days Date of Service: Jul 01, 2025 Billing Provider: JENN TORRE MD Common Visit Codes: NOT BILLABLE JENN TORRE MD Jul 01, 2025 15:24
--- NOTE | 2025-07-01 15:30 | DVHOP2 ---
Operative Report Operative Report CARDIAC GENERAL ASSIGNMENT REPORTER PROCEDURE REPORT [place], [place] Date of Service: 07/01/25 Co Pilot: Jenn Torre MD PROCEDURES PERFORMED: trans esophageal echocardiogram, conscious sedation <15 mins, doppler assesment complete TOMMY, PREOPERATIVE DIAGNOSES: MS POSTOP DIAGNOSIS: severe MS DESCRIPTION OF PROCEDURE: The patient or appropriate family signed informed consent understanding the risks, benefits and alternatives of the procedure, they wished to proceed. The patient was brought to the cardiac skill labor in n.p.o. state. the patient was given 15 ml of oral viscous lidocaine. the patient was placed in a left lateral decubitus position with bite block in mouth. NExt conscious sedation was administered per skill labor protocol with _x_ mg of versed and __25 _ mcg of fentanyl. Next a TOMMY probe was advanced to the mid esophagus with ease and multiple planar images obtained. At the completion of the procedure , probe was removed and there were no immediate complications. FINDINGS: Left Ventricle: Normal LV size and function, LVEF estimated at 55% Right Ventricle: NOrmal RV function Left atrium: enlarged, in LA Right atrium: mild enlarged Left atrial appendage: no thrombus noted, decreased velocity on PW monitoring Aortic valve: s p TAVR, no sig , trivial AI Mitral Valve: structurally normal, heavily calcific and degenerated, severe MS, mean gradient of 10 mmhg, mild to moderate mitral regurg Tricuspid Valve: mild tricuspid regurgitaiton, no TS Pulmonic Valve: strucutrally normal, no severe PIor PS Interatrial septum: negative color flow for R to L shunt Ascending aorta: no severe plaquing JENN TORRE MD Jul 01, 2025 15:29
--- NOTE | 2025-07-01 15:49 | DVHPN2 ---
Progress Note Date Seen: Jul 01, 2025 Medical Necessity Reason Pt with a Central, PICC or Fol: No Subjective Patient reports: No new complaints Review of Systems: HEENT:Normal, CVS:Normal, RESPIRATORY:Normal, GI:Normal, :Normal, MSK:Normal, NEURO:Normal Objective vital signs Vital Sign Date Time Temp Pulse Resp B/P (MAP) Pulse Ox O2 Delivery O2 Flow Rate FiO2 07/01/25 15:20 60 18 108/53 (71) 97 07/01/25 12:56 98.0 98.0 07/01/25 08:00 Nasal Cannula* 3 32 Total Intake and Output 06/30/25 06/30/25 07/01/25 15:00 23:00 07:00 Intake Total 625 ml 350 ml Balance 625 ml 350 ml medications Current Medications Medications Dose Ordered Sig/Payam Route Start Time Stop Time Status Last Admin Dose Admin Sodium Chloride 10 ml Q8HR IV 06/11/25 22:00 07/01/25 05:49 10 ML Docusate Sodium 100 mg BIDPRN PRN PO 06/11/25 19:45 Acetaminophen 650 mg Q6HP PRN PO 06/11/25 19:45 06/30/25 02:25 650 MG Ondansetron HCl 4 mg Q4HP PRN IV 06/11/25 19:45 Hydralazine HCl 10 mg Q6HP PRN IV 06/12/25 15:30 Hydralazine HCl 25 mg BID PO 06/12/25 22:00 06/29/25 09:56 25 MG Allopurinol 100 mg DAILY PO 06/15/25 10:00 06/30/25 10:03 100 MG Albuterol 2.5 mg Q4HPRN PRN NEB 06/16/25 11:30 06/28/25 11:58 2.5 MG Isosorbide Mononitrate 30 mg DAILY PO 06/22/25 10:00 06/30/25 10:02 30 MG Montelukast Sodium 10 mg HS PO 06/21/25 22:00 06/30/25 21:52 10 MG Pantoprazole Sodium 40 mg DAILY@0600 PO 06/24/25 06:00 07/01/25 05:49 40 MG Amiodarone HCl 200 mg Q12HR PO 06/26/25 22:00 06/30/25 22:03 200 MG Sildenafil Citrate 20 mg TID@08,14,20 PO 06/28/25 14:00 06/30/25 20:08 20 MG Alprazolam 0.5 mg Q8HPRN PRN PO 06/28/25 16:30 06/30/25 08:36 0.5 MG Sodium Chloride 1 spr QID EACHNOSTRI 06/29/25 12:00 06/30/25 18:18 1 SPR Furosemide 40 mg DAILY PO 06/30/25 10:00 06/30/25 10:03 40 MG Enteral Nutritional Formula 240 ml BIDWM PO 07/01/25 18:00 UNV Examination: GENERAL:Normal, HEENT:Normal, NECK:Normal, LUNGS:Normal, CVS:Normal, ABDOMEN:Normal, MSK:Normal, SKIN:Normal, NEURO:Normal, :Normal laboratory and microbiology Laboratory Tests 07/01/25 06:53 06/30/25 07:20 Test 07/01/25 06:53 Range/Units Serum Glucose 92 74-106 mg/dL Microbiology Date/Time Source Procedure Growth Status 06/11/25 12:30 Blood Blood Culture - Final NO GROWTH AFTER 5 DAYS OF INCUBATION. Complete Problem List/Assessment/Plan Problem List/Assessment/Plan #1 acute resp failure: cont oxygen #2 acute on chronic diastolic heart failure: lasix #3 htn #4 morbid obesity #5 acute on chronic renal failure ?vasomotor nephropathy: improving #6 s/p tavr #7 bradycardia/ a flutter: pacer #8 gout #9 copd ?exacerbation #10 ?pneumonia- gram positive/neg: antibiotic, chest xray #11 left ear wax: debrox- dc #12 severe mitral stenosis on fito #13 pulmonary htn: revatio advance care planning- full code- time spent 19 mins Plan discussed with: Other (rn) My Orders My Orders Orders - ARI FRAZIER MD Procedure Category Date Status Time Urinalysis LAB 07/01/25 Uncollected 15:43 Nutritional PHA 07/01/25 Logged Supplements (Ensure 18:00 2 Gm Sodium Diet DIET 07/01/25 Transmitted Dinner * Loans Officer CONS 07/01/25 Transmitted Consult Dietary Evaluation Review Comments: Nutrition Recommendaiton 1) MVI 1 tab daily 2) Monitor PO intake, lab values, weight trend, and I/O Expected Outcomes/Goals: Lab values to improve Fu 3-5 days Date of Service: Jul 01, 2025 Billing Provider: ARI FRAZIER MD Common Visit Codes: [id number] INP/OBS CARE(HIGH) ARI FRAZIER MD Jul 01, 2025 15:49
[2025-07-01] MEDS: Ensure HIGH Protein Chocolate 8oz Bottle PO SCH (18:00)
--- NOTE | 2025-07-01 18:57 | DVHPN2 ---
Progress Note Date Seen: Jul 01, 2025 Medical Necessity Reason Pt with a Central, PICC or Fol: No Objective vital signs Vital Sign Date Time Temp Pulse Resp B/P (MAP) Pulse Ox O2 Delivery O2 Flow Rate FiO2 07/01/25 17:45 130/55 07/01/25 17:00 98.1 60 18 98 98.1 07/01/25 08:15 Nasal Cannula 3.0 07/01/25 08:15 32 Total Intake and Output 06/30/25 06/30/25 07/01/25 15:00 23:00 07:00 Intake Total 625 ml 350 ml Balance 625 ml 350 ml medications Current Medications Medications Dose Ordered Sig/Payam Route Start Time Stop Time Status Last Admin Dose Admin Sodium Chloride 10 ml Q8HR IV 06/11/25 22:00 07/01/25 14:00 10 ML Docusate Sodium 100 mg BIDPRN PRN PO 06/11/25 19:45 Acetaminophen 650 mg Q6HP PRN PO 06/11/25 19:45 06/30/25 02:25 650 MG Ondansetron HCl 4 mg Q4HP PRN IV 06/11/25 19:45 Hydralazine HCl 10 mg Q6HP PRN IV 06/12/25 15:30 Hydralazine HCl 25 mg BID PO 06/12/25 22:00 06/29/25 09:56 25 MG Allopurinol 100 mg DAILY PO 06/15/25 10:00 07/01/25 17:44 100 MG Albuterol 2.5 mg Q4HPRN PRN NEB 06/16/25 11:30 06/28/25 11:58 2.5 MG Isosorbide Mononitrate 30 mg DAILY PO 06/22/25 10:00 06/30/25 10:02 30 MG Montelukast Sodium 10 mg HS PO 06/21/25 22:00 06/30/25 21:52 10 MG Pantoprazole Sodium 40 mg DAILY@0600 PO 06/24/25 06:00 07/01/25 05:49 40 MG Amiodarone HCl 200 mg Q12HR PO 06/26/25 22:00 06/30/25 22:03 200 MG Sildenafil Citrate 20 mg TID@08,14,20 PO 06/28/25 14:00 07/01/25 17:44 20 MG Alprazolam 0.5 mg Q8HPRN PRN PO 06/28/25 16:30 06/30/25 08:36 0.5 MG Sodium Chloride 1 spr QID EACHNOSTRI 06/29/25 12:00 06/30/25 18:18 1 SPR Furosemide 40 mg DAILY PO 06/30/25 10:00 07/01/25 17:45 40 MG Enteral Nutritional Formula 240 ml BIDWM PO 07/01/25 18:00 Examination: GENERAL:Normal, CVS:Abnormal, SKIN:Normal laboratory and microbiology Laboratory Tests 07/01/25 06:53 06/30/25 07:20 Test 07/01/25 06:53 Range/Units Serum Glucose 92 74-106 mg/dL Microbiology Date/Time Source Procedure Growth Status 06/11/25 12:30 Blood Blood Culture - Final NO GROWTH AFTER 5 DAYS OF INCUBATION. Complete Problem List/Assessment/Plan Problem List/Assessment/Plan 85-year-old female past medical chronic kidney disease and aortic valve disease presents with shortness of breath Acute kidney injury suspect in the setting of cardiorenal syndrome and hemodynamics Chronic kidney disease stage [address] 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 --> HR 30s-40s s/p PPM HR is better now History of TAVR s/p TOMMY which shows severe MS PPM placed HR better diuretics resume home dose lasix 40mg po once a day renal function has been stable no indication for dialysis Treatment of pneumonia Cardiology s/p TOMMY pulm htn meds stable renal function no medical changes at this time Plan discussed with: Patient Dietary Evaluation Review Comments: Nutrition Recommendaiton 1) MVI 1 tab daily 2) Monitor PO intake, lab values, weight trend, and I/O Expected Outcomes/Goals: Lab values to improve Fu 3-5 days Total Time (mins): 33 GREG HA MD Jul 01, 2025 18:57
[2025-07-01] MEDS: MIDODRINE HCL 10 MG TAB PO SCH (21:27)
--- NOTE | 2025-07-01 22:16 | ECG ---
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
--- NOTE | 2025-07-01 23:50 | DVHPN2 ---
Progress Note - Dictate Date Seen: Jul 01, 2025 Medical Necessity Reason Pt with a Central, PICC or Fol: No Subjective Patient was seen and evaluated in follow up. Patient is on 3 LPM NC. Patient's son Keyon is present at bedside. Patient is scheduled for TOMMY this afternoon. 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 Telemetry reviewed. vital signs Vital Sign Date Time Temp Pulse Resp B/P (MAP) Pulse Ox O2 Delivery O2 Flow Rate FiO2 07/01/25 08:43 97.9 60 18 96/42 (60) 95 97.9 07/01/25 08:00 Nasal Cannula* 3 32 Total Intake and Output 06/30/25 06/30/25 07/01/25 15:00 23:00 07:00 Intake Total 625 ml 350 ml Balance 625 ml 350 ml medications Current Medications Medications Dose Ordered Sig/Payam Route Start Time Stop Time Status Last Admin Dose Admin Sodium Chloride 10 ml Q8HR IV 06/11/25 22:00 07/01/25 05:49 10 ML Docusate Sodium 100 mg BIDPRN PRN PO 06/11/25 19:45 Acetaminophen 650 mg Q6HP PRN PO 06/11/25 19:45 06/30/25 02:25 650 MG Ondansetron HCl 4 mg Q4HP PRN IV 06/11/25 19:45 Hydralazine HCl 10 mg Q6HP PRN IV 06/12/25 15:30 Hydralazine HCl 25 mg BID PO 06/12/25 22:00 06/29/25 09:56 25 MG Allopurinol 100 mg DAILY PO 06/15/25 10:00 06/30/25 10:03 100 MG Albuterol 2.5 mg Q4HPRN PRN NEB 06/16/25 11:30 06/28/25 11:58 2.5 MG Isosorbide Mononitrate 30 mg DAILY PO 06/22/25 10:00 06/30/25 10:02 30 MG Montelukast Sodium 10 mg HS PO 06/21/25 22:00 06/30/25 21:52 10 MG Pantoprazole Sodium 40 mg DAILY@0600 PO 06/24/25 06:00 07/01/25 05:49 40 MG Doxycycline Monohydrate 100 mg Q12HR PO 06/25/25 22:00 06/30/25 22:03 100 MG Amiodarone HCl 200 mg Q12HR PO 06/26/25 22:00 06/30/25 22:03 200 MG Sildenafil Citrate 20 mg TID@08,14,20 PO 06/28/25 14:00 06/30/25 20:08 20 MG Alprazolam 0.5 mg Q8HPRN PRN PO 06/28/25 16:30 06/30/25 08:36 0.5 MG Sodium Chloride 1 spr QID EACHNOSTRI 06/29/25 12:00 06/30/25 18:18 1 SPR Furosemide 40 mg DAILY PO 06/30/25 10:00 06/30/25 10:03 40 MG objective GENERAL: Alert and oriented x 3. No acute distress. EYES: PERRL, EOMI. Anicteric. HENT: Moist mucous membranes. LUNGS: Clear to auscultation bilaterally. CARDIOVASCULAR: Regular rate and rhythm. ABDOMEN: Soft, nontender and nondistended. EXTREMITIES: No edema. NEUROLOGIC: No focal neurological deficits. SKIN: Warm, dry. laboratory and microbiology Laboratory Tests 07/01/25 06:53 06/30/25 07:20 Test 07/01/25 06:53 Range/Units Serum Glucose 92 74-106 mg/dL Problem List AFib with RVR, currently paced rhythm. s/p Dual chamber PPM with medtronic. NSTEMI. Symptomatic bradycardia. Transient AFib on anticoagulation. Acute on chronic diastolic HF (HFpEF). Severe pulmonary hypertension. Severe aortic stenosis, s/p TAVR. Hypertension. COPD. Obesity. Assessment/Plan Continued all current supportive medical care. IV Hydralazine for SBP > 150. GI prophylactics. Additional plan as per the hospital course. Dietary Evaluation Review Comments: Nutrition Recommendaiton 1) MVI 1 tab daily 2) Monitor PO intake, lab values, weight trend, and I/O Expected Outcomes/Goals: Lab values to improve Fu 3-5 days Plan discussed with: Patient CHELY SUMNER MD Jul 01, 2025 12:56
[2025-07-02] VITALS (13 sets, daily range): BP systolic 107–124; BP diastolic 46–90; PULSE 64–90; RESP 16–20; TEMP 97–98.4; O2SAT 94–100
[2025-07-02 06:20] LABS: Urine Protein, UAD Negative (Negative)
--- NOTE | 2025-07-02 11:16 | DVHPN2 ---
Progress Note Date Seen: Jul 02, 2025 Medical Necessity Reason Pt with a Central, PICC or Fol: No Subjective Patient reports: No new complaints Other Systems: Patient seen and examined by myself today in follow-up Objective vital signs Vital Sign Date Time Temp Pulse Resp B/P (MAP) Pulse Ox O2 Delivery O2 Flow Rate FiO2 07/02/25 09:00 98.4 72 20 123/57 (79) 99 98.4 07/02/25 08:00 Nasal Cannula* 3 32 Total Intake and Output 07/01/25 07/01/25 07/02/25 15:00 23:00 07:00 Intake Total 20 ml 100 ml Balance 20 ml 100 ml medications Current Medications Medications Dose Ordered Sig/Payam Route Start Time Stop Time Status Last Admin Dose Admin Sodium Chloride 10 ml Q8HR IV 06/11/25 22:00 07/02/25 05:32 10 ML Docusate Sodium 100 mg BIDPRN PRN PO 06/11/25 19:45 Acetaminophen 650 mg Q6HP PRN PO 06/11/25 19:45 07/02/25 02:35 650 MG Ondansetron HCl 4 mg Q4HP PRN IV 06/11/25 19:45 Hydralazine HCl 10 mg Q6HP PRN IV 06/12/25 15:30 Hydralazine HCl 25 mg BID PO 06/12/25 22:00 06/29/25 09:56 25 MG Allopurinol 100 mg DAILY PO 06/15/25 10:00 07/02/25 08:56 100 MG Albuterol 2.5 mg Q4HPRN PRN NEB 06/16/25 11:30 07/01/25 21:59 2.5 MG Isosorbide Mononitrate 30 mg DAILY PO 06/22/25 10:00 Hold 06/30/25 10:02 30 MG Montelukast Sodium 10 mg HS PO 06/21/25 22:00 07/01/25 23:25 10 MG Pantoprazole Sodium 40 mg DAILY@0600 PO 06/24/25 06:00 07/02/25 05:32 40 MG Amiodarone HCl 200 mg Q12HR PO 06/26/25 22:00 07/02/25 08:56 200 MG Sildenafil Citrate 20 mg TID@08,,20 PO 06/28/25 14:00 07/02/25 08:57 20 MG Alprazolam 0.5 mg Q8HPRN PRN PO 06/28/25 16:30 06/30/25 08:36 0.5 MG Sodium Chloride 1 spr QID EACHNOSTRI 06/29/25 12:00 07/02/25 05:32 1 SPR Furosemide 40 mg DAILY PO 06/30/25 10:00 07/02/25 08:55 40 MG Enteral Nutritional Formula 240 ml BIDWM PO 07/01/25 18:00 07/02/25 08:00 240 ML Midodrine 10 mg TID@0600,1200,1800 PO 07/01/25 21:15 07/01/25 21:27 10 MG Examination: LUNGS:Normal, CVS:Normal, MSK:Normal laboratory and microbiology Laboratory Tests 07/01/25 06:53 06/30/25 07:20 Test 07/01/25 06:53 Range/Units Serum Glucose 92 74-106 mg/dL Microbiology Date/Time Source Procedure Growth Status 06/11/25 12:30 Blood Blood Culture - Final NO GROWTH AFTER 5 DAYS OF INCUBATION. Complete Problem List/Assessment/Plan Problem List/Assessment/Plan Acute kidney injury superimposed Chronic Kidney Disease secondary hemodynamic mediated Chronic kidney disease stage 3 a, Dr. 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
--- NOTE | 2025-07-02 14:29 | DVHPN2 ---
Subjective Patient denies any chest pain. Reports respiratory status has improved. Reviewed: Care Plan Changes from previous H/P or p: No Changes General: Per HPI Objective Vitals Vital Signs Date Time Temp Pulse Resp B/P (MAP) Pulse Ox O2 Delivery O2 Flow Rate FiO2 07/02/25 13:00 97.8 70 19 107/90 (96) 98 97.8 07/02/25 08:00 Nasal Cannula* 3 32 Intake/Output Intake and Output 07/02/25 07:00 Intake Total 120 ml Balance 120 ml Intake Oral 120 ml # Voids 4 General Appearance: Alert, Oriented X3, Cooperative HEENT: Atraumatic, PERRLA Lungs: Other Chest/Breasts: Other Cardiovascular: Regular rate, Normal S1, Normal S2 Abdomen: Normal bowel sounds, Soft, No tenderness, No hepatospenomegaly Musculoskeletal: Normal sensory function, Normal motor function Neuro: Normal speech, Strength at 5/5 X4 ext, Normal tone, Sensation intact, C ranial nerves 3-12 NL Skin: Dry, Intact Psych/Mental Status: Mental status NL, Mood NL Medications Current Medications Medications Dose Ordered Sig/Payam Route Start Time Stop Time Status Last Admin Dose Admin Sodium Chloride 10 ml Q8HR IV 06/11/25 22:00 07/02/25 14:21 10 ML Docusate Sodium 100 mg BIDPRN PRN PO 06/11/25 19:45 Acetaminophen 650 mg Q6HP PRN PO 06/11/25 19:45 07/02/25 02:35 650 MG Ondansetron HCl 4 mg Q4HP PRN IV 06/11/25 19:45 Hydralazine HCl 10 mg Q6HP PRN IV 06/12/25 15:30 Hydralazine HCl 25 mg BID PO 06/12/25 22:00 06/29/25 09:56 25 MG Allopurinol 100 mg DAILY PO 06/15/25 10:00 07/02/25 08:56 100 MG Albuterol 2.5 mg Q4HPRN PRN NEB 06/16/25 11:30 07/01/25 21:59 2.5 MG Isosorbide Mononitrate 30 mg DAILY PO 06/22/25 10:00 Hold 06/30/25 10:02 30 MG Montelukast Sodium 10 mg HS PO 06/21/25 22:00 07/01/25 23:25 10 MG Pantoprazole Sodium 40 mg DAILY@0600 PO 06/24/25 06:00 07/02/25 05:32 40 MG Amiodarone HCl 200 mg Q12HR PO 06/26/25 22:00 07/02/25 08:56 200 MG Sildenafil Citrate 20 mg TID@08,14,20 PO 06/28/25 14:00 07/02/25 08:57 20 MG Alprazolam 0.5 mg Q8HPRN PRN PO 06/28/25 16:30 06/30/25 08:36 0.5 MG Sodium Chloride 1 spr QID EACHNOSTRI 06/29/25 12:00 07/02/25 05:32 1 SPR Furosemide 40 mg DAILY PO 06/30/25 10:00 07/02/25 08:55 40 MG Enteral Nutritional Formula 240 ml BIDWM PO 07/01/25 18:00 07/02/25 08:00 240 ML Midodrine 10 mg TID@0600,1200,1800 PO 07/01/25 21:15 07/01/25 21:27 10 MG Laboratory Results Laboratory Tests 06/30/25 07:20 07/01/25 06:53 Urinalysis Test 07/02/25 05:26 Urine Color Light-yellow (Yellow) Urine Clarity Clear (Clear) Urine pH 5.5 (5.0-9.0) Urine Specific [place] 1.010 (1.001-1.035) Urine Protein Negative (Negative) Urine Ketones Negative (Negative) Urine Blood Negative /uL (Negative) Urine Nitrite Negative (Negative) Urine Bilirubin Negative (Negative) Urine Urobilinogen Normal mg/dL (Negative) Urine Leukocyte Esterase 1+ /uL (Negative) Urine RBC None seen /hpf (0 - 4) Urine Microscopic WBC 3 /HPF (0-5) Urine Squamous Epithelial Cells Few /hpf (<5) Urine Bacteria None seen /hpf (None Seen) Urine Hyaline Casts Few /lpf (0 - 2) Urine Glucose Normal mg/dL (Normal) Microbiology Microbiology Date/Time Source Procedure Growth Status 06/11/25 12:30 Blood Blood Culture - Final NO GROWTH AFTER 5 DAYS OF INCUBATION. Complete Labs and/or images reviewed: Labs reviewed by me, Image(s) reviewed by me Assessment/Plan Assessment/Plan Impression: -acute hypoxic respiratory failure -acute on chronic diastolic heart failure -pulmonary hypertension -atrial flutter with persistent bradycardia -primary hypertension -obesity -acute on chronic renal failure with questionable vasomotor nephropathy -status post TAVR -COPD with exacerbation -rule out community-acquired pneumonia, Gram-positive/Gram-negative etiology -left ear wax -mitral stenosis -pulmonary hypertension Plan: Events: Patient's respiratory status mildly improved. Patient had TOMMY with noted severe mitral stenosis. Patient was started on Revatio. Renal function improved -physical therapy -O2 supplementation to keep saturation greater than 90% . Currently on 2 L nasal cannula -antibiotics discontinued -bronchodilators -pain management -consultations: Cardiology, Nephrology -DC planning for long term facility. Total time spent with patient discussing and formulating plan of care: 35 minutes. This medical document was created using an electronic medical record system with [employer] dictation system. Although this document has been carefully reviewed, there may still be some phonetic and typographical errors. These areas are purely typographical due to imperfections of the software programs, and do not reflect any compromise in the patient's medical care. Plan discussed with: Patient, Other (RN) Date of Service: Jul 02, 2025 Billing Provider: JEREMY KELLY NP Common Visit Codes: [id number] INP/OBS CARE(HIGH) JEREMY KELLY NP Jul 02, 2025 14:28
--- NOTE | 2025-07-02 17:38 | DVHPN2 ---
Progress Note - Dictate Date Seen: Jul 02, 2025 Medical Necessity Reason Pt with a Central, PICC or Fol: No Subjective Patient was seen and evaluated in follow up. Patient is on 3 LPM NC. Patients son is at bedside and is now requesting for patient to be discharged to [facility]. VS are stable. Telemetry reviewed. vital signs Vital Sign Date Time Temp Pulse Resp B/P (MAP) Pulse Ox O2 Delivery O2 Flow Rate FiO2 07/02/25 10:00 123/57 07/02/25 09:00 98.4 72 20 99 98.4 07/02/25 08:00 Nasal Cannula* 3 32 Total Intake and Output 07/01/25 07/01/25 07/02/25 15:00 23:00 07:00 Intake Total 20 ml 100 ml Balance 20 ml 100 ml medications Current Medications Medications Dose Ordered Sig/Payam Route Start Time Stop Time Status Last Admin Dose Admin Sodium Chloride 10 ml Q8HR IV 06/11/25 22:00 07/02/25 05:32 10 ML Docusate Sodium 100 mg BIDPRN PRN PO 06/11/25 19:45 Acetaminophen 650 mg Q6HP PRN PO 06/11/25 19:45 07/02/25 02:35 650 MG Ondansetron HCl 4 mg Q4HP PRN IV 06/11/25 19:45 Hydralazine HCl 10 mg Q6HP PRN IV 06/12/25 15:30 Hydralazine HCl 25 mg BID PO 06/12/25 22:00 06/29/25 09:56 25 MG Allopurinol 100 mg DAILY PO 06/15/25 10:00 07/02/25 08:56 100 MG Albuterol 2.5 mg Q4HPRN PRN NEB 06/16/25 11:30 07/01/25 21:59 2.5 MG Isosorbide Mononitrate 30 mg DAILY PO 06/22/25 10:00 Hold 06/30/25 10:02 30 MG Montelukast Sodium 10 mg HS PO 06/21/25 22:00 07/01/25 23:25 10 MG Pantoprazole Sodium 40 mg DAILY@0600 PO 06/24/25 06:00 07/02/25 05:32 40 MG Amiodarone HCl 200 mg Q12HR PO 06/26/25 22:00 07/02/25 08:56 200 MG Sildenafil Citrate 20 mg TID@08,14,20 PO 06/28/25 14:00 07/02/25 08:57 20 MG Alprazolam 0.5 mg Q8HPRN PRN PO 06/28/25 16:30 06/30/25 08:36 0.5 MG Sodium Chloride 1 spr QID EACHNOSTRI 06/29/25 12:00 07/02/25 05:32 1 SPR Furosemide 40 mg DAILY PO 06/30/25 10:00 07/02/25 08:55 40 MG Enteral Nutritional Formula 240 ml BIDWM PO 07/01/25 18:00 07/02/25 08:00 240 ML Midodrine 10 mg TID@0600,1200,1800 PO 07/01/25 21:15 07/01/25 21:27 10 MG objective GENERAL: Alert and oriented x 3. No acute distress. EYES: PERRL, EOMI. Anicteric. HENT: Moist mucous membranes. LUNGS: Clear to auscultation bilaterally. CARDIOVASCULAR: Regular rate and rhythm. ABDOMEN: Soft, nontender and nondistended. EXTREMITIES: No edema. NEUROLOGIC: No focal neurological deficits. SKIN: Warm, dry. laboratory and microbiology Laboratory Tests 07/01/25 06:53 06/30/25 07:20 Test 07/01/25 06:53 Range/Units Serum Glucose 92 74-106 mg/dL Problem List AFib with RVR, currently paced rhythm. s/p Dual chamber PPM with medtronic. NSTEMI. Symptomatic bradycardia. Transient AFib on anticoagulation. Acute on chronic diastolic HF (HFpEF). Severe pulmonary hypertension. Severe aortic stenosis, s/p TAVR. Hypertension. COPD. Obesity. Assessment/Plan Continued all current supportive medical care. Amiodarone. Diuretics with Lasix. IV Hydralazine for SBP > 150. GI prophylactics. Additional plan as per the hospital course. Dietary Evaluation Review Comments: Nutrition Recommendaiton 1) MVI 1 tab daily 2) Monitor PO intake, lab values, weight trend, and I/O Expected Outcomes/Goals: Lab values to improve Fu 3-5 days Plan discussed with: Patient CHELY SUMNER MD Jul 02, 2025 12:35
[2025-07-03] VITALS (13 sets, daily range): BP systolic 93–134; BP diastolic 45–72; PULSE 76–87; RESP 16–20; TEMP 96.8–98.4; O2SAT 96–100
--- NOTE | 2025-07-03 10:16 | DVHPN2 ---
Progress Note Date Seen: Jul 03, 2025 Medical Necessity Reason Pt with a Central, PICC or Fol: No Subjective Patient reports: No new complaints Other Systems: Patient seen and examined by myself today in follow-up Objective vital signs Vital Sign Date Time Temp Pulse Resp B/P (MAP) Pulse Ox O2 Delivery O2 Flow Rate FiO2 07/03/25 08:54 98.2 81 20 134/72 (92) 97 98.2 07/03/25 08:00 Nasal Cannula* 3 32 Total Intake and Output 07/02/25 07/02/25 07/03/25 15:00 23:00 07:00 Intake Total 1160 ml 0 ml Output Total 350 ml 700 ml Balance 810 ml -700 ml medications Current Medications Medications Dose Ordered Sig/Payam Route Start Time Stop Time Status Last Admin Dose Admin Sodium Chloride 10 ml Q8HR IV 06/11/25 22:00 07/03/25 06:42 10 ML Docusate Sodium 100 mg BIDPRN PRN PO 06/11/25 19:45 Acetaminophen 650 mg Q6HP PRN PO 06/11/25 19:45 07/03/25 06:43 650 MG Ondansetron HCl 4 mg Q4HP PRN IV 06/11/25 19:45 Hydralazine HCl 10 mg Q6HP PRN IV 06/12/25 15:30 Hydralazine HCl 25 mg BID PO 06/12/25 22:00 06/29/25 09:56 25 MG Allopurinol 100 mg DAILY PO 06/15/25 10:00 07/02/25 08:56 100 MG Albuterol 2.5 mg Q4HPRN PRN NEB 06/16/25 11:30 07/02/25 23:47 2.5 MG Isosorbide Mononitrate 30 mg DAILY PO 06/22/25 10:00 Hold 06/30/25 10:02 30 MG Montelukast Sodium 10 mg HS PO 06/21/25 22:00 07/02/25 22:12 10 MG Pantoprazole Sodium 40 mg DAILY@0600 PO 06/24/25 06:00 07/03/25 06:43 40 MG Amiodarone HCl 200 mg Q12HR PO 06/26/25 22:00 07/02/25 22:12 200 MG Sildenafil Citrate 20 mg TID@08,14,20 PO 06/28/25 14:00 07/02/25 20:53 20 MG Alprazolam 0.5 mg Q8HPRN PRN PO 06/28/25 16:30 06/30/25 08:36 0.5 MG Sodium Chloride 1 spr QID EACHNOSTRI 06/29/25 12:00 07/03/25 06:42 1 SPR Furosemide 40 mg DAILY PO 06/30/25 10:00 07/02/25 08:55 40 MG Enteral Nutritional Formula 240 ml BIDWM PO 07/01/25 18:00 07/02/25 18:10 240 ML Midodrine 10 mg TID@0600,1200,1800 PO 07/01/25 21:15 07/01/25 21:27 10 MG Examination: LUNGS:Normal, CVS:Normal, MSK:Normal laboratory and microbiology Laboratory Tests 07/01/25 06:53 06/30/25 07:20 Test 07/01/25 06:53 Range/Units Serum Glucose 92 74-106 mg/dL Microbiology Date/Time Source Procedure Growth Status 06/11/25 12:30 Blood Blood Culture - Final NO GROWTH AFTER 5 DAYS OF INCUBATION. Complete Problem List/Assessment/Plan Problem List/Assessment/Plan Acute kidney injury superimposed Chronic Kidney Disease secondary hemodynamic mediated Chronic kidney disease stage 3 a, Dr. 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
--- NOTE | 2025-07-03 12:55 | DVHPN2 ---
Reviewed: Care Plan Changes from previous H/P or p: No Changes General: Per HPI Objective Vitals Vital Signs Date Time Temp Pulse Resp B/P (MAP) Pulse Ox O2 Delivery O2 Flow Rate FiO2 07/03/25 12:31 98.4 78 18 93/60 (71) 98 98.4 07/03/25 08:00 Nasal Cannula* 3 32 Intake/Output Intake and Output 07/03/25 07:00 Intake Total 1160 ml Output Total 1050 ml Balance 110 ml Intake Oral 1160 ml Output Urine Total 1050 ml # Voids 5 # Bowel Movements 1 General Appearance: Alert, Oriented X3, Cooperative HEENT: Atraumatic, PERRLA Lungs: Other Chest/Breasts: Other Cardiovascular: Regular rate, Normal S1, Normal S2 Abdomen: Normal bowel sounds, Soft, No tenderness, No hepatospenomegaly Musculoskeletal: Normal sensory function, Normal motor function Neuro: Normal speech, Strength at 5/5 X4 ext, Normal tone, Sensation intact, C ranial nerves 3-12 NL Skin: Dry, Intact Psych/Mental Status: Mental status NL, Mood NL Medications Current Medications Medications Dose Ordered Sig/Payam Route Start Time Stop Time Status Last Admin Dose Admin Sodium Chloride 10 ml Q8HR IV 06/11/25 22:00 07/03/25 06:42 10 ML Docusate Sodium 100 mg BIDPRN PRN PO 06/11/25 19:45 Acetaminophen 650 mg Q6HP PRN PO 06/11/25 19:45 07/03/25 06:43 650 MG Ondansetron HCl 4 mg Q4HP PRN IV 06/11/25 19:45 Hydralazine HCl 10 mg Q6HP PRN IV 06/12/25 15:30 Hydralazine HCl 25 mg BID PO 06/12/25 22:00 07/03/25 10:21 25 MG Allopurinol 100 mg DAILY PO 06/15/25 10:00 07/03/25 10:22 100 MG Albuterol 2.5 mg Q4HPRN PRN NEB 06/16/25 11:30 07/02/25 23:47 2.5 MG Isosorbide Mononitrate 30 mg DAILY PO 06/22/25 10:00 Hold 06/30/25 10:02 30 MG Montelukast Sodium 10 mg HS PO 06/21/25 22:00 07/02/25 22:12 10 MG Pantoprazole Sodium 40 mg DAILY@0600 PO 06/24/25 06:00 07/03/25 06:43 40 MG Amiodarone HCl 200 mg Q12HR PO 06/26/25 22:00 07/03/25 10:22 200 MG Sildenafil Citrate 20 mg TID@08,14,20 PO 06/28/25 14:00 07/03/25 10:21 20 MG Alprazolam 0.5 mg Q8HPRN PRN PO 06/28/25 16:30 06/30/25 08:36 0.5 MG Sodium Chloride 1 spr QID EACHNOSTRI 06/29/25 12:00 07/03/25 06:42 1 SPR Furosemide 40 mg DAILY PO 06/30/25 10:00 07/03/25 10:22 40 MG Enteral Nutritional Formula 240 ml BIDWM PO 07/01/25 18:00 07/03/25 08:00 240 ML Midodrine 10 mg TID@0600,1200,1800 PO 07/01/25 21:15 07/01/25 21:27 10 MG Laboratory Results Laboratory Tests 06/30/25 07:20 07/01/25 06:53 Urinalysis Test 07/02/25 05:26 Urine Color Light-yellow (Yellow) Urine Clarity Clear (Clear) Urine pH 5.5 (5.0-9.0) Urine Specific [place] 1.010 (1.001-1.035) Urine Protein Negative (Negative) Urine Ketones Negative (Negative) Urine Blood Negative /uL (Negative) Urine Nitrite Negative (Negative) Urine Bilirubin Negative (Negative) Urine Urobilinogen Normal mg/dL (Negative) Urine Leukocyte Esterase 1+ /uL (Negative) Urine RBC None seen /hpf (0 - 4) Urine Microscopic WBC 3 /HPF (0-5) Urine Squamous Epithelial Cells Few /hpf (<5) Urine Bacteria None seen /hpf (None Seen) Urine Hyaline Casts Few /lpf (0 - 2) Urine Glucose Normal mg/dL (Normal) Microbiology Microbiology Date/Time Source Procedure Growth Status 06/11/25 12:30 Blood Blood Culture - Final NO GROWTH AFTER 5 DAYS OF INCUBATION. Complete Labs and/or images reviewed: Labs reviewed by me, Image(s) reviewed by me Assessment/Plan Assessment/Plan Covering for Dr. 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
--- NOTE | 2025-07-03 17:35 | DVHPN2 ---
Progress Note Date Seen: Jul 03, 2025 Medical Necessity Reason Pt with a Central, PICC or Fol: No Subjective Patient reports: Feels better Other Systems: spoke to son at length last night Objective vital signs Vital Sign Date Time Temp Pulse Resp B/P (MAP) Pulse Ox O2 Delivery O2 Flow Rate FiO2 07/03/25 16:53 97.8 87 18 131/59 (83) 100 97.8 07/03/25 08:00 Nasal Cannula* 3 32 Total Intake and Output 07/02/25 07/02/25 07/03/25 15:00 23:00 07:00 Intake Total 1160 ml 0 ml Output Total 350 ml 700 ml Balance 810 ml -700 ml medications Current Medications Medications Dose Ordered Sig/Payam Route Start Time Stop Time Status Last Admin Dose Admin Sodium Chloride 10 ml Q8HR IV 06/11/25 22:00 07/03/25 14:00 10 ML Docusate Sodium 100 mg BIDPRN PRN PO 06/11/25 19:45 Acetaminophen 650 mg Q6HP PRN PO 06/11/25 19:45 07/03/25 06:43 650 MG Ondansetron HCl 4 mg Q4HP PRN IV 06/11/25 19:45 Hydralazine HCl 10 mg Q6HP PRN IV 06/12/25 15:30 Hydralazine HCl 25 mg BID PO 06/12/25 22:00 07/03/25 10:21 25 MG Allopurinol 100 mg DAILY PO 06/15/25 10:00 07/03/25 10:22 100 MG Albuterol 2.5 mg Q4HPRN PRN NEB 06/16/25 11:30 07/02/25 23:47 2.5 MG Isosorbide Mononitrate 30 mg DAILY PO 06/22/25 10:00 Hold 06/30/25 10:02 30 MG Montelukast Sodium 10 mg HS PO 06/21/25 22:00 07/02/25 22:12 10 MG Pantoprazole Sodium 40 mg DAILY@0600 PO 06/24/25 06:00 07/03/25 06:43 40 MG Amiodarone HCl 200 mg Q12HR PO 06/26/25 22:00 07/03/25 10:22 200 MG Sildenafil Citrate 20 mg TID@08,,20 PO 06/28/25 14:00 07/03/25 10:21 20 MG Alprazolam 0.5 mg Q8HPRN PRN PO 06/28/25 16:30 06/30/25 08:36 0.5 MG Sodium Chloride 1 spr QID EACHNOSTRI 06/29/25 12:00 07/03/25 06:42 1 SPR Furosemide 40 mg DAILY PO 06/30/25 10:00 07/03/25 10:22 40 MG Enteral Nutritional Formula 240 ml BIDWM PO 07/01/25 18:00 07/03/25 08:00 240 ML Midodrine 10 mg TID@0600,1200,1800 PO 07/01/25 21:15 07/01/25 21:27 10 MG Examination: GENERAL:Abnormal, HEENT:Abnormal, LUNGS:Abnormal, CVS:Abnormal, ABDOMEN:Abnormal laboratory and microbiology Laboratory Tests 07/01/25 06:53 06/30/25 07:20 Test 07/01/25 06:53 Range/Units Serum Glucose 92 74-106 mg/dL Microbiology Date/Time Source Procedure Growth Status 06/11/25 12:30 Blood Blood Culture - Final NO GROWTH AFTER 5 DAYS OF INCUBATION. Complete Problem List/Assessment/Plan Problem List/Assessment/Plan sp tavr diastolc advanced HF CKD advanced morbid obesity HTN pulm htn sp PPM for sick sinus/ intermittent 2: 1 block , on doxycycline for abx could add revatio, minimal help prob 2:1 av block, possible PPM for sinus rates 40s off BB, cont renal eval--renal function much better now consider PT/OT placement if indicated AFIB--- amiodarone severe MS---noted on TOMMY today, HR in 60s, will review options prognosis is guarded shira/ diandra regarding pt prognosis Plan discussed with: Patient Dietary Evaluation Review Comments: Nutrition Recommendaiton 1) MVI 1 tab daily 2) Monitor PO intake, lab values, weight trend, and I/O Expected Outcomes/Goals: Lab values to improve Fu 3-5 days Date of Service: Jul 03, 2025 Billing Provider: JENN TORRE MD Common Visit Codes: NOT BILLABLE JENN TORRE MD Jul 03, 2025 17:35
--- NOTE | 2025-07-03 23:26 | DVHPN2 ---
Progress Note - Dictate Date Seen: Jul 03, 2025 Medical Necessity Reason Pt with a Central, PICC or Fol: No Subjective Patient was seen and evaluated in follow up. Patient is on 3 LPM NC. Patient is complaining of BLE pain. TOMMY shows severe MS. Telemetry reviewed. vital signs Vital Sign Date Time Temp Pulse Resp B/P (MAP) Pulse Ox O2 Delivery O2 Flow Rate FiO2 07/03/25 12:31 98.4 78 18 93/60 (71) 98 98.4 07/03/25 08:00 Nasal Cannula* 3 32 Total Intake and Output 07/02/25 07/02/25 07/03/25 15:00 23:00 07:00 Intake Total 1160 ml 0 ml Output Total 350 ml 700 ml Balance 810 ml -700 ml medications Current Medications Medications Dose Ordered Sig/Payam Route Start Time Stop Time Status Last Admin Dose Admin Sodium Chloride 10 ml Q8HR IV 06/11/25 22:00 07/03/25 06:42 10 ML Docusate Sodium 100 mg BIDPRN PRN PO 06/11/25 19:45 Acetaminophen 650 mg Q6HP PRN PO 06/11/25 19:45 07/03/25 06:43 650 MG Ondansetron HCl 4 mg Q4HP PRN IV 06/11/25 19:45 Hydralazine HCl 10 mg Q6HP PRN IV 06/12/25 15:30 Hydralazine HCl 25 mg BID PO 06/12/25 22:00 07/03/25 10:21 25 MG Allopurinol 100 mg DAILY PO 06/15/25 10:00 07/03/25 10:22 100 MG Albuterol 2.5 mg Q4HPRN PRN NEB 06/16/25 11:30 07/02/25 23:47 2.5 MG Isosorbide Mononitrate 30 mg DAILY PO 06/22/25 10:00 Hold 06/30/25 10:02 30 MG Montelukast Sodium 10 mg HS PO 06/21/25 22:00 07/02/25 22:12 10 MG Pantoprazole Sodium 40 mg DAILY@0600 PO 06/24/25 06:00 07/03/25 06:43 40 MG Amiodarone HCl 200 mg Q12HR PO 06/26/25 22:00 07/03/25 10:22 200 MG Sildenafil Citrate 20 mg TID@08,14,20 PO 06/28/25 14:00 07/03/25 10:21 20 MG Alprazolam 0.5 mg Q8HPRN PRN PO 06/28/25 16:30 06/30/25 08:36 0.5 MG Sodium Chloride 1 spr QID EACHNOSTRI 06/29/25 12:00 07/03/25 06:42 1 SPR Furosemide 40 mg DAILY PO 06/30/25 10:00 07/03/25 10:22 40 MG Enteral Nutritional Formula 240 ml BIDWM PO 07/01/25 18:00 07/03/25 08:00 240 ML Midodrine 10 mg TID@0600,1200,1800 PO 07/01/25 21:15 07/01/25 21:27 10 MG objective GENERAL: Alert and oriented x 3. No acute distress. EYES: PERRL, EOMI. Anicteric. HENT: Moist mucous membranes. LUNGS: Clear to auscultation bilaterally. CARDIOVASCULAR: Regular rate and rhythm. ABDOMEN: Soft, nontender and nondistended. EXTREMITIES: No edema. NEUROLOGIC: No focal neurological deficits. SKIN: Warm, dry. laboratory and microbiology Laboratory Tests 07/01/25 06:53 06/30/25 07:20 Test 07/01/25 06:53 Range/Units Serum Glucose 92 74-106 mg/dL Problem List AFib with RVR, currently paced rhythm. s/p Dual chamber PPM with medtronic. NSTEMI. Symptomatic bradycardia. Transient AFib on anticoagulation. Acute on chronic diastolic HF (HFpEF). Severe pulmonary hypertension. Severe aortic stenosis, s/p TAVR. Hypertension. COPD. Obesity. Assessment/Plan Continued all current supportive medical care. Amiodarone. Diuretics with Lasix. IV Hydralazine for SBP > 150. GI prophylactics. Additional plan as per the hospital course. Dietary Evaluation Review Comments: Nutrition Recommendaiton 1) MVI 1 tab daily 2) Monitor PO intake, lab values, weight trend, and I/O Expected Outcomes/Goals: Lab values to improve Fu 3-5 days Plan discussed with: Patient CHELY SUMNER MD Jul 03, 2025 12:45
[2025-07-04] VITALS (13 sets, daily range): BP systolic 115–133; BP diastolic 46–69; PULSE 72–95; RESP 17–19; TEMP 97.6–98.1; O2SAT 92–100
--- NOTE | 2025-07-04 11:00 | DVHPN2 ---
Progress Note Date Seen: Jul 04, 2025 Medical Necessity Reason Pt with a Central, PICC or Fol: No Subjective Review of Systems: RESPIRATORY:Abnormal Other Systems: Patient seen and examined by myself today in follow-up Objective vital signs Vital Sign Date Time Temp Pulse Resp B/P (MAP) Pulse Ox O2 Delivery O2 Flow Rate FiO2 07/04/25 09:29 123/69 07/04/25 09:00 97.7 91 19 92 97.7 07/04/25 08:00 Nasal Cannula* 3 32 Total Intake and Output 07/03/25 07/03/25 07/04/25 15:00 23:00 07:00 Intake Total 450 ml 300 ml Output Total 700 ml 250 ml Balance -250 ml 50 ml medications Current Medications Medications Dose Ordered Sig/Payam Route Start Time Stop Time Status Last Admin Dose Admin Sodium Chloride 10 ml Q8HR IV 06/11/25 22:00 07/04/25 06:34 10 ML Docusate Sodium 100 mg BIDPRN PRN PO 06/11/25 19:45 Acetaminophen 650 mg Q6HP PRN PO 06/11/25 19:45 07/03/25 06:43 650 MG Ondansetron HCl 4 mg Q4HP PRN IV 06/11/25 19:45 Hydralazine HCl 10 mg Q6HP PRN IV 06/12/25 15:30 Hydralazine HCl 25 mg BID PO 06/12/25 22:00 07/04/25 09:29 25 MG Allopurinol 100 mg DAILY PO 06/15/25 10:00 07/04/25 09:30 100 MG Albuterol 2.5 mg Q4HPRN PRN NEB 06/16/25 11:30 07/04/25 01:38 2.5 MG Isosorbide Mononitrate 30 mg DAILY PO 06/22/25 10:00 Hold 06/30/25 10:02 30 MG Montelukast Sodium 10 mg HS PO 06/21/25 22:00 07/03/25 22:37 10 MG Pantoprazole Sodium 40 mg DAILY@0600 PO 06/24/25 06:00 07/04/25 06:35 40 MG Amiodarone HCl 200 mg Q12HR PO 06/26/25 22:00 07/04/25 09:30 200 MG Sildenafil Citrate 20 mg TID@08,14,20 PO 06/28/25 14:00 07/04/25 09:34 20 MG Alprazolam 0.5 mg Q8HPRN PRN PO 06/28/25 16:30 06/30/25 08:36 0.5 MG Sodium Chloride 1 spr QID EACHNOSTRI 06/29/25 12:00 07/03/25 06:42 1 SPR Furosemide 40 mg DAILY PO 06/30/25 10:00 07/04/25 09:29 40 MG Enteral Nutritional Formula 240 ml BIDWM PO 07/01/25 18:00 07/04/25 08:00 240 ML Midodrine 10 mg TID@0600,1200,1800 PO 07/01/25 21:15 07/01/25 21:27 10 MG Examination: LUNGS:Normal, CVS:Normal, MSK:Normal laboratory and microbiology Laboratory Tests 07/01/25 06:53 06/30/25 07:20 Test 07/01/25 06:53 Range/Units Serum Glucose 92 74-106 mg/dL Microbiology Date/Time Source Procedure Growth Status 06/11/25 12:30 Blood Blood Culture - Final NO GROWTH AFTER 5 DAYS OF INCUBATION. Complete Problem List/Assessment/Plan Problem List/Assessment/Plan Acute kidney injury superimposed Chronic Kidney Disease secondary hemodynamic mediated Acute on chronic respiratory failure Chronic kidney disease stage 3 a, Dr. Silva Pneumonia Diastolic heart failure, pulmonary hypertension, Severe 2-1 heart block --> HR 30s-40s s/p PPM HR is better now History of TAVR s/p TOMMY which shows severe MS Recommendations Kidney function stabilize Chronic Kidney Disease stage 4 Increased urine output Strict I&Os I agree with diuresis Renal Avoid nephrotoxic medications Cardiology consult We will continue to follow up Plan discussed with: Patient Dietary Evaluation Review Comments: Nutrition Recommendaiton 1) MVI 1 tab daily 2) Monitor PO intake, lab values, weight trend, and I/O Expected Outcomes/Goals: Lab values to improve Fu 3-5 days DORCAS SILVA MD Jul 04, 2025 11:00
--- NOTE | 2025-07-04 12:53 | DVHPN2 ---
Reviewed: Care Plan Changes from previous H/P or p: No Changes General: Per HPI Objective Vitals Vital Signs Date Time Temp Pulse Resp B/P (MAP) Pulse Ox O2 Delivery O2 Flow Rate FiO2 07/04/25 09:29 123/69 07/04/25 09:00 97.7 91 19 92 97.7 07/04/25 08:00 Nasal Cannula* 3 32 Intake/Output Intake and Output 07/04/25 07:00 Intake Total 750 ml Output Total 950 ml Balance -200 ml Intake Oral 750 ml Output Urine Total 950 ml # Voids 2 # Bowel Movements 1 General Appearance: Alert, Oriented X3, Cooperative HEENT: Atraumatic, PERRLA Lungs: Other Chest/Breasts: Other Cardiovascular: Regular rate, Normal S1, Normal S2 Abdomen: Normal bowel sounds, Soft, No tenderness, No hepatospenomegaly Musculoskeletal: Normal sensory function, Normal motor function Neuro: Normal speech, Strength at 5/5 X4 ext, Normal tone, Sensation intact, C ranial nerves 3-12 NL Skin: Dry, Intact Psych/Mental Status: Mental status NL, Mood NL Medications Current Medications Medications Dose Ordered Sig/Payam Route Start Time Stop Time Status Last Admin Dose Admin Sodium Chloride 10 ml Q8HR IV 06/11/25 22:00 07/04/25 06:34 10 ML Docusate Sodium 100 mg BIDPRN PRN PO 06/11/25 19:45 Acetaminophen 650 mg Q6HP PRN PO 06/11/25 19:45 07/03/25 06:43 650 MG Ondansetron HCl 4 mg Q4HP PRN IV 06/11/25 19:45 Hydralazine HCl 10 mg Q6HP PRN IV 06/12/25 15:30 Hydralazine HCl 25 mg BID PO 06/12/25 22:00 07/04/25 09:29 25 MG Allopurinol 100 mg DAILY PO 06/15/25 10:00 07/04/25 09:30 100 MG Albuterol 2.5 mg Q4HPRN PRN NEB 06/16/25 11:30 07/04/25 01:38 2.5 MG Isosorbide Mononitrate 30 mg DAILY PO 06/22/25 10:00 Hold 06/30/25 10:02 30 MG Montelukast Sodium 10 mg HS PO 06/21/25 22:00 07/03/25 22:37 10 MG Pantoprazole Sodium 40 mg DAILY@0600 PO 06/24/25 06:00 07/04/25 06:35 40 MG Amiodarone HCl 200 mg Q12HR PO 06/26/25 22:00 07/04/25 09:30 200 MG Sildenafil Citrate 20 mg TID@08,14,20 PO 06/28/25 14:00 07/04/25 09:34 20 MG Alprazolam 0.5 mg Q8HPRN PRN PO 06/28/25 16:30 06/30/25 08:36 0.5 MG Sodium Chloride 1 spr QID EACHNOSTRI 06/29/25 12:00 07/03/25 06:42 1 SPR Furosemide 40 mg DAILY PO 06/30/25 10:00 07/04/25 09:29 40 MG Enteral Nutritional Formula 240 ml BIDWM PO 07/01/25 18:00 07/04/25 08:00 240 ML Midodrine 10 mg TID@0600,1200,1800 PO 07/01/25 21:15 07/01/25 21:27 10 MG Laboratory Results Laboratory Tests 06/30/25 07:20 07/01/25 06:53 Urinalysis Test 07/02/25 05:26 Urine Color Light-yellow (Yellow) Urine Clarity Clear (Clear) Urine pH 5.5 (5.0-9.0) Urine Specific [place] 1.010 (1.001-1.035) Urine Protein Negative (Negative) Urine Ketones Negative (Negative) Urine Blood Negative /uL (Negative) Urine Nitrite Negative (Negative) Urine Bilirubin Negative (Negative) Urine Urobilinogen Normal mg/dL (Negative) Urine Leukocyte Esterase 1+ /uL (Negative) Urine RBC None seen /hpf (0 - 4) Urine Microscopic WBC 3 /HPF (0-5) Urine Squamous Epithelial Cells Few /hpf (<5) Urine Bacteria None seen /hpf (None Seen) Urine Hyaline Casts Few /lpf (0 - 2) Urine Glucose Normal mg/dL (Normal) Microbiology Microbiology Date/Time Source Procedure Growth Status 06/11/25 12:30 Blood Blood Culture - Final NO GROWTH AFTER 5 DAYS OF INCUBATION. Complete Labs and/or images reviewed: Labs reviewed by me, Image(s) reviewed by me Assessment/Plan Assessment/Plan Covering for Dr. 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
--- NOTE | 2025-07-04 20:18 | DVHPN2 ---
Progress Note - Dictate Date Seen: Jul 04, 2025 Medical Necessity Reason Pt with a Central, PICC or Fol: No Subjective Patient was seen and evaluated in follow up. Patient is stable on 3 LPM NC. Patient is complaining of BLE discomfort. Telemetry reviewed. vital signs Vital Sign Date Time Temp Pulse Resp B/P (MAP) Pulse Ox O2 Delivery O2 Flow Rate FiO2 07/04/25 13:00 98.1 83 19 133/65 (87) 99 98.1 07/04/25 08:00 Nasal Cannula* 3 32 Total Intake and Output 07/03/25 07/03/25 07/04/25 15:00 23:00 07:00 Intake Total 450 ml 300 ml Output Total 700 ml 250 ml Balance -250 ml 50 ml medications Current Medications Medications Dose Ordered Sig/Payam Route Start Time Stop Time Status Last Admin Dose Admin Sodium Chloride 10 ml Q8HR IV 06/11/25 22:00 07/04/25 06:34 10 ML Docusate Sodium 100 mg BIDPRN PRN PO 06/11/25 19:45 Acetaminophen 650 mg Q6HP PRN PO 06/11/25 19:45 07/03/25 06:43 650 MG Ondansetron HCl 4 mg Q4HP PRN IV 06/11/25 19:45 Hydralazine HCl 10 mg Q6HP PRN IV 06/12/25 15:30 Hydralazine HCl 25 mg BID PO 06/12/25 22:00 07/04/25 09:29 25 MG Allopurinol 100 mg DAILY PO 06/15/25 10:00 07/04/25 09:30 100 MG Albuterol 2.5 mg Q4HPRN PRN NEB 06/16/25 11:30 07/04/25 01:38 2.5 MG Isosorbide Mononitrate 30 mg DAILY PO 06/22/25 10:00 Hold 06/30/25 10:02 30 MG Montelukast Sodium 10 mg HS PO 06/21/25 22:00 07/03/25 22:37 10 MG Pantoprazole Sodium 40 mg DAILY@0600 PO 06/24/25 06:00 07/04/25 06:35 40 MG Amiodarone HCl 200 mg Q12HR PO 06/26/25 22:00 07/04/25 09:30 200 MG Sildenafil Citrate 20 mg TID@,20 PO 06/28/25 14:00 07/04/25 09:34 20 MG Alprazolam 0.5 mg Q8HPRN PRN PO 06/28/25 16:30 06/30/25 08:36 0.5 MG Sodium Chloride 1 spr QID EACHNOSTRI 06/29/25 12:00 07/03/25 06:42 1 SPR Furosemide 40 mg DAILY PO 06/30/25 10:00 07/04/25 09:29 40 MG Enteral Nutritional Formula 240 ml BIDWM PO 07/01/25 18:00 07/04/25 08:00 240 ML Midodrine 10 mg TID@0600,1200,1800 PO 07/01/25 21:15 07/01/25 21:27 10 MG objective GENERAL: Alert and oriented x 3. No acute distress. EYES: PERRL, EOMI. Anicteric. HENT: Moist mucous membranes. LUNGS: Clear to auscultation bilaterally. CARDIOVASCULAR: Regular rate and rhythm. ABDOMEN: Soft, nontender and nondistended. EXTREMITIES: No edema. NEUROLOGIC: No focal neurological deficits. SKIN: Warm, dry. laboratory and microbiology Laboratory Tests 07/01/25 06:53 06/30/25 07:20 Test 07/01/25 06:53 Range/Units Serum Glucose 92 74-106 mg/dL Problem List AFib with RVR, currently paced rhythm. s/p Dual chamber PPM with medtronic. NSTEMI. Symptomatic bradycardia. Transient AFib on anticoagulation. Acute on chronic diastolic HF (HFpEF). Severe pulmonary hypertension. Severe aortic stenosis, s/p TAVR. Hypertension. COPD. Obesity. Assessment/Plan Continued all current supportive medical care. Amiodarone. Diuretics with Lasix. IV Hydralazine for SBP > 150. GI prophylactics. Additional plan as per the hospital course. Dietary Evaluation Review Comments: Nutrition Recommendaiton 1) MVI 1 tab daily 2) Monitor PO intake, lab values, weight trend, and I/O Expected Outcomes/Goals: Lab values to improve Fu 3-5 days Plan discussed with: Patient CHELY SUMNER MD Jul 04, 2025 14:10
[2025-07-05] VITALS (7 sets, daily range): BP systolic 97–130; BP diastolic 42–74; PULSE 74–91; RESP 17–18; TEMP 97.8–98.2; O2SAT 94–97
--- NOTE | 2025-07-05 12:07 | DVHPN2 ---
Progress Note Date Seen: Jul 05, 2025 Medical Necessity Reason Pt with a Central, PICC or Fol: No Subjective Other Systems: possible tx to SNF Objective vital signs Vital Sign Date Time Temp Pulse Resp B/P (MAP) Pulse Ox O2 Delivery O2 Flow Rate FiO2 07/05/25 10:00 97/42 07/05/25 09:00 97.8 84 18 94 97.8 07/05/25 08:25 Nasal Cannula* 3 32 Total Intake and Output 07/04/25 07/04/25 07/05/25 15:00 23:00 07:00 Intake Total 240 ml 740 ml 400 ml Output Total 340 ml Balance 240 ml 400 ml 400 ml medications Current Medications Medications Dose Ordered Sig/Payam Route Start Time Stop Time Status Last Admin Dose Admin Sodium Chloride 10 ml Q8HR IV 06/11/25 22:00 07/05/25 05:45 10 ML Docusate Sodium 100 mg BIDPRN PRN PO 06/11/25 19:45 Acetaminophen 650 mg Q6HP PRN PO 06/11/25 19:45 07/03/25 06:43 650 MG Ondansetron HCl 4 mg Q4HP PRN IV 06/11/25 19:45 Hydralazine HCl 10 mg Q6HP PRN IV 06/12/25 15:30 Hydralazine HCl 25 mg BID PO 06/12/25 22:00 07/04/25 22:18 25 MG Allopurinol 100 mg DAILY PO 06/15/25 10:00 07/05/25 09:26 100 MG Albuterol 2.5 mg Q4HPRN PRN NEB 06/16/25 11:30 07/04/25 20:35 2.5 MG Isosorbide Mononitrate 30 mg DAILY PO 06/22/25 10:00 Hold 06/30/25 10:02 30 MG Montelukast Sodium 10 mg HS PO 06/21/25 22:00 07/04/25 22:19 10 MG Pantoprazole Sodium 40 mg DAILY@0600 PO 06/24/25 06:00 07/05/25 05:45 40 MG Amiodarone HCl 200 mg Q12HR PO 06/26/25 22:00 07/05/25 09:26 200 MG Sildenafil Citrate 20 mg TID@08,14,20 PO 06/28/25 14:00 07/05/25 09:26 20 MG Alprazolam 0.5 mg Q8HPRN PRN PO 06/28/25 16:30 06/30/25 08:36 0.5 MG Sodium Chloride 1 spr QID EACHNOSTRI 06/29/25 12:00 07/04/25 12:00 1 SPR Furosemide 40 mg DAILY PO 06/30/25 10:00 07/04/25 09:29 40 MG Enteral Nutritional Formula 240 ml BIDWM PO 07/01/25 18:00 07/05/25 08:00 240 ML Midodrine 10 mg TID@0600,1200,1800 PO 07/01/25 21:15 07/05/25 05:45 10 MG Examination: GENERAL:Abnormal, HEENT:Abnormal, LUNGS:Abnormal, CVS:Abnormal, ABDOMEN:Abnormal laboratory and microbiology Laboratory Tests 07/01/25 06:53 06/30/25 07:20 Test 07/01/25 06:53 Range/Units Serum Glucose 92 74-106 mg/dL Microbiology Date/Time Source Procedure Growth Status 06/11/25 12:30 Blood Blood Culture - Final NO GROWTH AFTER 5 DAYS OF INCUBATION. Complete Problem List/Assessment/Plan Problem List/Assessment/Plan sp tavr diastolc advanced HF CKD advanced morbid obesity HTN pulm htn sp PPM for sick sinus/ intermittent 2: 1 block , on doxycycline for abx could add revatio, minimal help prob 2:1 av block, possible PPM for sinus rates 40s off BB, cont renal eval--renal function much better now consider PT/OT placement if indicated AFIB--- amiodarone severe MS---noted on TOMMY today, HR in 60s, will review options prognosis is guarded shira/ diandra regarding pt prognosis Plan discussed with: Patient Dietary Evaluation Review Comments: Nutrition Recommendaiton 1) MVI 1 tab daily 2) Monitor PO intake, lab values, weight trend, and I/O Expected Outcomes/Goals: Lab values to improve Fu 3-5 days Date of Service: Jul 05, 2025 Billing Provider: JENN TORRE MD Common Visit Codes: NOT BILLABLE JENN TORRE MD Jul 05, 2025 12:07
--- NOTE | 2025-07-05 12:12 | DVHDS2 ---
Discharge Summary Date of Admission Jun 11, 2025 at 19:47 Date of Discharge: Jul 05, 2025 Labs/Diagnostic Data: Laboratory Results Test 07/02/25 05:26 07/01/25 06:53 06/30/25 07:20 06/26/25 07:55 Urine Color Light-yellow (Yellow) Urine Clarity Clear (Clear) Urine pH 5.5 (5.0-9.0) Urine Specific [place] 1.010 (1.001-1.035) Urine Protein Negative (Negative) Urine Ketones Negative (Negative) Urine Blood Negative /uL (Negative) Urine Nitrite Negative (Negative) Urine Bilirubin Negative (Negative) Urine Urobilinogen Normal mg/dL (Negative) Urine Leukocyte Esterase 1+ /uL (Negative) Urine RBC None seen /hpf (0 - 4) Urine Microscopic WBC 3 /HPF (0-5) Urine Squamous Epithelial Cells Few /hpf (<5) Urine Bacteria None seen /hpf (None Seen) Urine Hyaline Casts Few /lpf (0 - 2) Urine Glucose Normal mg/dL (Normal) Sodium Level 140 mmol/L (136-145) Potassium Level 3.8 mmol/L (3.5-5.1) Chloride Level 104 mmol/L (98-107) Carbon Dioxide Level 23 mmol/L (20-31) Anion Gap 13 (5-15) Blood Urea Nitrogen 30 mg/dL (9-23) Creatinine 1.91 mg/dL (0.550-1.02) Glomerular Filtration Rate Calc 26 mL/min (>90) BUN/Creatinine Ratio 15.7 (10.0-20.0) Serum Glucose 92 mg/dL (74-106) Calcium Level 9.1 mg/dL (8.7-10.4) White Blood Count 10.4 10^3/uL (4.4-10.8) Red Blood Count 2.75 10^6/uL (4.0-5.20) Hemoglobin 8.8 g/dL (12.2-16.2) Hematocrit 25.7 % (36.0-46.0) Mean Corpuscular Volume 93.6 fL (80.0-100.0) Mean Corpuscular Hemoglobin 31.9 pg (28.0-32.0) Mean Corpuscular Hemoglobin Concent 34.1 g/dL (32.0-36.0) Red Cell Distribution Width 16.0 % (11.8-14.3) Platelet Count 231 10^3/uL (140-450) Mean Platelet Volume 9.0 fL (6.9-10.8) Neutrophils (%) (Auto) 73.8 % (37.0-80.0) Lymphocytes (%) (Auto) 7.3 % (10.0-50.0) Monocytes (%) (Auto) 12.4 % (0.0-12.0) Eosinophils (%) (Auto) 5.1 % (0.0-7.0) Basophils (%) (Auto) 1.4 % (0.0-2.0) Neutrophils # (Auto) 7.7 10 ^3/uL (1.6-8.6) Lymphocytes # (Auto) 0.8 10 ^3/uL (0.4-5.4) Monocytes # (Auto) 1.3 10 ^3/uL (0-1.3) Eosinophils # (Auto) 0.5 10 ^3/uL (0-0.8) Basophils # (Auto) 0.1 10 ^3/uL (0-0.2) Nucleated Red Blood Cells 0.1 % Total Bilirubin 0.6 mg/dL (0.2-1.0) Aspartate Amino Transferase (AST) 25 U/L (13-40) Alanine Aminotransferase (ALT) 13 U/L (7-40) Alkaline Phosphatase 55 U/L (46-116) Total Protein 6.0 g/dL (5.7-8.2) Albumin 3.5 g/dL (3.2-4.8) Magnesium Level 2.2 mg/dL (1.6-2.6) Test 06/17/25 05:18 06/13/25 06:42 06/12/25 17:58 06/12/25 10:29 B-Type Natriuretic Peptide 999.47 pg/mL (0-100) Thyroid Stimulating Hormone (TSH) 0.29 uIU/mL (0.55-4.78) Free Thyroxine (T4) Calculated 1.02 ng/dL (0.89-1.76) Troponin I High Sensitivity 168 ng/L (</=34) Platelet Estimate Adequate Test 06/11/25 12:30 06/11/25 10:25 Lactic Acid Level 1.3 mmol/L (0.4-2.0) Prothrombin Time 11.2 sec (9.3-11.8) Prothrombin Time INR 1.06 (0.9-1.15) Activated Partial Thromboplast Time 28.4 SEC (24.5-34.5) Other Laboratory Tests 07/01/25 06:53 06/30/25 07:20 Brief Hx & Hospital Course: see dictated note Condition at Discharge: Guarded Final Diagnosis/Problems List chf Discharge Disposition: [facility] Facility Discharge Instruct/Medications Diet: Cardiac 2g Na,low cholest Activity: No Restrictions, As Tolerated Follow Up/Referral: fu with pcp/cardiology Medications: per mar Scheduled Allopurinol (Allopurinol), 1 TAB PO DAILY, (Reported) Apixaban Base (Eliquis), 1 TAB PO BID, (Reported) Aspirin (Aspirin), 2 TAB PO QAM, (Reported) Atorvastatin Calcium (Atorvastatin Calcium), 1 TAB PO QPM, (Reported) Carvedilol (Carvedilol), 1 TAB PO QAM, (Reported) Furosemide (Furosemide), 1 TAB PO DAILY, (Reported) Montelukast Sodium (Montelukast Sodium), 1 TAB PO DAILY, (Reported) Pantoprazole Sodium Sesquihydr (Protonix), 1 TAB PO QAM, (Reported) Scheduled PRN Albuterol Sulfate (Albuterol Sulfate Hfa), 2 PUFF IN QID PRN for SHORTNESS OF BREATH, (Reported) Discharge Statement: "Patient was advised to return to the ER or call 911 if any headaches, dizziness, shortness of breath, chest pain, abdominal pain, bleeding, fevers, or worsening of medical condition. Patient was counseled about treatment plan, medications, possible side effects, patientverbalized understanding. All questions were answered to the best of my ability. This discharge took greater then 30 minutes in planning, reviewing documentation, counseling the patient, and discussing with other team members." ASSESSMENT ASSESSMENT Assessment chf Date of Service: Jul 05, 2025 Billing Provider: ARI FRAZIER MD Common Visit Codes: 13101-BGY/OBS DISCH DAY >30min ARI FRAZIER MD Jul 05, 2025 12:12
--- NOTE | 2025-07-05 13:33 | DVHDS ---
HISTORY OF PRESENT ILLNESS: The patient is an 85-year-old lady, who was admitted with history of increasing shortness of breath and chest pain and has history of COPD, congestive heart failure, hypertension, GERD, coronary artery disease, and aortic valve replacement. HOSPITAL COURSE: The patient was seen in Cardiology consult by Dr. Thomas. Echocardiogram done showed a moderate degree of LVH with calcified mitral stenosis and moderately dilated LA with severe pulmonary hypertension. The patient was placed on diuretics along with steroids. The patient's respiratory status has since improved. The patient's blood cultures have been negative. She was given antibiotics for possible pneumonia, which has since resolved. The patient had bradycardia and had a pacemaker placed by Dr. Ayala on 06/18/2025. The patient subsequently had a TOMMY done that showed severe mitral stenosis. As per Dr. Thomas, no further intervention can be done at this time. The patient will now be transferred to a assisted facility for further management. FINAL DIAGNOSES: Therefore; * Acute respiratory failure. * Acute on chronic diastolic heart failure. * Hypertension. * Morbid obesity. * Acute on chronic renal failure, likely vasomotor nephropathy. * History of TAVR. * Bradycardia with atrial flutter, status post pacemaker. * Gout. * COPD with exacerbation. * Questionable pneumonia, Gram-positive, Gram-negative. * Severe mitral stenosis. * Severe pulmonary hypertension. Time spent in discharge planning and review of plan with the patient and nursing was 39 minutes. MD ZAHIRA Robles/KWABENA/AMI TID: [id number] RECEIPT: [id number]
--- NOTE | 2025-07-05 18:12 | DVHPN2 ---
Progress Note Date Seen: Jul 05, 2025 Medical Necessity Reason Pt with a Central, PICC or Fol: No Subjective Patient reports: No new complaints Objective vital signs Vital Sign Date Time Temp Pulse Resp B/P (MAP) Pulse Ox O2 Delivery O2 Flow Rate FiO2 07/05/25 13:00 98.1 78 18 130/57 (81) 96 98.1 07/05/25 08:25 Nasal Cannula* 3 32 Total Intake and Output 07/04/25 07/04/25 07/05/25 15:00 23:00 07:00 Intake Total 240 ml 740 ml 400 ml Output Total 340 ml Balance 240 ml 400 ml 400 ml medications Current Medications Medications Dose Ordered Sig/Payam Route Start Time Stop Time Status Last Admin Dose Admin Sodium Chloride 10 ml Q8HR IV 06/11/25 22:00 07/05/25 15:20 10 ML Docusate Sodium 100 mg BIDPRN PRN PO 06/11/25 19:45 Acetaminophen 650 mg Q6HP PRN PO 06/11/25 19:45 07/03/25 06:43 650 MG Ondansetron HCl 4 mg Q4HP PRN IV 06/11/25 19:45 Hydralazine HCl 10 mg Q6HP PRN IV 06/12/25 15:30 Hydralazine HCl 25 mg BID PO 06/12/25 22:00 07/04/25 22:18 25 MG Allopurinol 100 mg DAILY PO 06/15/25 10:00 07/05/25 09:26 100 MG Albuterol 2.5 mg Q4HPRN PRN NEB 06/16/25 11:30 07/04/25 20:35 2.5 MG Isosorbide Mononitrate 30 mg DAILY PO 06/22/25 10:00 Hold 06/30/25 10:02 30 MG Montelukast Sodium 10 mg HS PO 06/21/25 22:00 07/04/25 22:19 10 MG Pantoprazole Sodium 40 mg DAILY@0600 PO 06/24/25 06:00 07/05/25 05:45 40 MG Amiodarone HCl 200 mg Q12HR PO 06/26/25 22:00 07/05/25 09:26 200 MG Sildenafil Citrate 20 mg TID@08,14,20 PO 06/28/25 14:00 07/05/25 15:19 20 MG Alprazolam 0.5 mg Q8HPRN PRN PO 06/28/25 16:30 06/30/25 08:36 0.5 MG Sodium Chloride 1 spr QID EACHNOSTRI 06/29/25 12:00 07/04/25 12:00 1 SPR Furosemide 40 mg DAILY PO 06/30/25 10:00 07/05/25 12:40 40 MG Enteral Nutritional Formula 240 ml BIDWM PO 07/01/25 18:00 07/05/25 08:00 240 ML laboratory and microbiology Laboratory Tests 07/01/25 06:53 06/30/25 07:20 Test 07/01/25 06:53 Range/Units Serum Glucose 92 74-106 mg/dL Microbiology Date/Time Source Procedure Growth Status 06/11/25 12:30 Blood Blood Culture - Final NO GROWTH AFTER 5 DAYS OF INCUBATION. Complete Problem List/Assessment/Plan Problem List/Assessment/Plan Acute kidney injury hemodynamic mediated etiology Chronic kidney disease stage [address] 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 History of TAVR recs stable renal function Plan discussed with: Patient Dietary Evaluation Review Comments: Nutrition Recommendaiton 1) MVI 1 tab daily 2) Monitor PO intake, lab values, weight trend, and I/O Expected Outcomes/Goals: Lab values to improve Fu 3-5 days TONO WITT MD Jul 05, 2025 18:12
--- NOTE | 2025-07-05 21:53 | DVHPN2 ---
Progress Note - Dictate Date Seen: Jul 05, 2025 Medical Necessity Reason Pt with a Central, PICC or Fol: No Subjective Patient was seen and evaluated in follow up. Patient has no new complaints at this time. Patient denies any cardiac symptoms. Patient is cardiac stable for discharge. Follow up with cardiology outpatient. Telemetry reviewed. vital signs Vital Sign Date Time Temp Pulse Resp B/P (MAP) Pulse Ox O2 Delivery O2 Flow Rate FiO2 07/05/25 17:03 81 18 96 07/05/25 13:00 98.1 130/57 (81) 98.1 07/05/25 08:25 Nasal Cannula* 3 32 Total Intake and Output 07/04/25 07/04/25 07/05/25 15:00 23:00 07:00 Intake Total 240 ml 740 ml 400 ml Output Total 340 ml Balance 240 ml 400 ml 400 ml objective GENERAL: Alert and oriented x 3. No acute distress. EYES: PERRL, EOMI. Anicteric. HENT: Moist mucous membranes. LUNGS: Clear to auscultation bilaterally. CARDIOVASCULAR: Regular rate and rhythm. ABDOMEN: Soft, nontender and nondistended. EXTREMITIES: No edema. NEUROLOGIC: No focal neurological deficits. SKIN: Warm, dry. laboratory and microbiology Laboratory Tests 07/01/25 06:53 06/30/25 07:20 Test 07/01/25 06:53 Range/Units Serum Glucose 92 74-106 mg/dL Problem List AFib with RVR, currently paced rhythm. s/p Dual chamber PPM with medtronic. NSTEMI. Symptomatic bradycardia. Transient AFib on anticoagulation. Acute on chronic diastolic HF (HFpEF). Severe pulmonary hypertension. Severe aortic stenosis, s/p TAVR. Hypertension. COPD. Obesity. Assessment/Plan Continued all current supportive medical care. Amiodarone. Diuretics with Lasix. IV Hydralazine for SBP > 150. GI prophylactics. Additional plan as per the hospital course. Dietary Evaluation Review Comments: Nutrition Recommendaiton 1) MVI 1 tab daily 2) Monitor PO intake, lab values, weight trend, and I/O Expected Outcomes/Goals: Lab values to improve Fu 3-5 days Plan discussed with: Patient CHELY SUMNER MD Jul 05, 2025 21:53
== END 2025-07-05 18:26 | DRG 242 ==
LOC: EDBD 09:41 → ER 09:41 → OVERFLOW 19:47 → TELE-WESTW 22:50
PROVIDERS: ADMIT Internal Medicine; ATTEND Internal Medicine
PROC: 0JH606Z Insertion of Pacemaker, Dual Chamber into Chest Subcutaneous Tissue and Fascia, Open Approach (ICD-10-PCS; principal; 2025-06-17)
PROC: 02H63JZ Insertion of Pacemaker Lead into Right Atrium, Percutaneous Approach (ICD-10-PCS; 2025-06-17)
PROC: 02HK3JZ Insertion of Pacemaker Lead into Right Ventricle, Percutaneous Approach (ICD-10-PCS; 2025-06-17)
PROC: B517YZZ Fluoroscopy of Left Subclavian Vein using Other Contrast (ICD-10-PCS; 2025-06-17)
PROC: B24BZZ4 Ultrasonography of Heart with Aorta, Transesophageal (ICD-10-PCS; 2025-07-01)
DX: I13.0 Hypertensive heart and chronic kidney disease with heart failure and stage 1 through stage 4 chronic kidney disease, or unspecified chronic kidney disease (principal); I50.33 Acute on chronic diastolic (congestive) heart failure; J96.01 Acute respiratory failure with hypoxia; J15.69 Pneumonia due to other Gram-negative bacteria; N17.0 Acute kidney failure with tubular necrosis; J15.9 Unspecified bacterial pneumonia; I48.92 Unspecified atrial flutter; J44.1 Chronic obstructive pulmonary disease with (acute) exacerbation; J44.0 Chronic obstructive pulmonary disease with (acute) lower respiratory infection; Z68.41 Body mass index [BMI] 40.0-44.9, adult; I25.10 Atherosclerotic heart disease of native coronary artery without angina pectoris; I27.20 Pulmonary hypertension, unspecified; I35.0 Nonrheumatic aortic (valve) stenosis; I48.91 Unspecified atrial fibrillation; E66.01 Morbid (severe) obesity due to excess calories; K21.9 Gastro-esophageal reflux disease without esophagitis; M10.9 Gout, unspecified; H61.22 Impacted cerumen, left ear; I05.0 Rheumatic mitral stenosis; N18.30 Chronic kidney disease, stage 3 unspecified; Z79.899 Other long term (current) drug therapy; Z82.49 Family history of ischemic heart disease and other diseases of the circulatory system; Z95.2 Presence of prosthetic heart valve; Z88.5 Allergy status to narcotic agent; Z88.6 Allergy status to analgesic agent; Z79.82 Long term (current) use of aspirin; Z79.01 Long term (current) use of anticoagulants
CPT/HCPCS: 33208; 36415; 71045; 76775; 80048; 80053; 81001; 83605; 83735; 83880; 84439; 84443; 84484; 85025; 85610; 85730; 87040; 93005; 93306; 93312; 94640; 96365; 96375; 97110; 97116; 97163; 97530; 99152; 99291; 99292; G0378; J2250

== ENCOUNTER 2025-08-09 13:16 | Inpatient (IN) | payer MEDICARE, MEDICAID ==
[~2025-08-09] VITALS: Ht 195.6 cm; Wt 91.0 kg
[~2025-08-09 13:16] MED LIST changes: +AMIO200T13 PO; +ATOR-507 PO; +COLC1CAP PO; -FURO20TA3 PO; +SILD20TA41 PO
[2025-08-09] MEDS: IPRATROPIUM BROM 0.5 MG/2.5ML INH SOL NEB ONE ×2 (13:41→19:42)
[2025-08-09] MEDS: ALBUTEROL SULF 2.5 MG/0.5ML(0.5%) NEB SOLN NEB ONE ×2 (13:41→19:42)
--- NOTE | 2025-08-09 13:42 | ED.PDOC ---
SOB-HPI HPI Comments 85 year old female PMHx CHF, CKF, COPD, GERD, HTN, GA presents to the ED with a chief complaint of cough onset 5 days. Patient was discharged from [facility] on 07/05/25, was treated for Pneumonia, had pacemaker placed on 06/18/25. Patient is currently at [facility]. She states she has been experiencing cough for the past 5 days, began experiencing hemoptysis for the past day, with chest pain. Upon EMS arrival O2 sat was 87%on RA, was placed on 1L current o2 sat was 90%. She is currently on Eliquis. Denies fever, chills, nausea, vomiting, diarrhea, hematemesis, dizziness, blurred vision. No other symptoms or modifying factors present at this time. Time Seen by MD: 13:30 Primary Care Provider: TIFFANIE Doss notes: Medications, Allergies Information Source: Patient, Emergency Med Personnel Mode of Arrival: EMS Severity: Moderate Timing: Days Duration: Since onset Context: At Rest PE Risk Factors: None History of: COPD, CHF, Recent URI Prehospital treatment: Oxygen Modifying Factors: Nothing Associated Signs and Symptoms: Cough Quality: Pressure Radiation: No Radiation Past Medical History PAST MEDICAL HISTORY: CHF, CKF, COPD, GERD, HTN, GA Surgical History: Pacemaker [employer]AND [employer]OR History: Denies all BRAND [employer]OR Hx Family History Family History: Reviewed,noncontributory to illness Social History Smoker: Non-Smoker Alcohol: Denies ETOH Use Drugs: Denies Drug Use Lives In: Home Constitutional: denies: chills, diaphoresis, fatigue, fever, malaise, sweats, weakness, others EENTM: denies: blurred vision, double vision, ear bleeding, ear discharge, ear drainage, ear pain, ear ringing, eye pain, eye redness, hearing loss, mouth pain, mouth swelling, nasal discharge, nose bleeding, nose congestion, nose pain, photophobia, tearing, throat pain, throat swelling, voice changes, others Respiratory: reports: cough, hemoptysis; denies: orthopnea, SOB at rest, shortness of breath, SOB with excertion, stridor, wheezing, others Cardiovascular: reports: chest pain; denies: dizzy spells, diaphoresis, Dyspnea on exertion, edema, irregular heart beat, left arm pain, lightheadedness, palpitations, PND, syncope, others Gastrointestinal: denies: abdomen distended, abdominal pain, blood streaked bowels, constipated, diarrhea, dysphagia, difficulty swallowing, hematemesis, melena, nausea, poor appetite, poor fluid intake, rectal bleeding, rectal pain, vomiting, others Genitourinary: denies: abnormal vagina bleeding, burning, dyspareunia, dysuria, flank pain, frequency, hematuria, incontinence, pain, , vagina discharg e, urgency, others Neurological: denies: dizziness, fainting, headache, left sided numbness, left sided weakness, numbness, paresthesia, pre-existing deficit, right sided numbness, right sided weakness, seizure, speech problems, tingling, tremors, weakness, others Musculoskeletal: denies: back pain, gout, joint pain, joint swelling, muscle pain, muscle stiffness, neck pain, others Integumetry: denies: bruises, change in color, change in hair/nails, dryness, laceration, lesions, lumps, rash, wounds, others Allergic/Immunocompromised: denies: Difficulty Healing, Frequent Infections, Hives, Itching, others Hematologic/Lymphatic: denies: anemia, blood clots, easy bleeding, easy bruising, swollen glands, others Endocrine: denies: excessive hunger, excessive sweating, excessive thirst, excessive urination, flushing, intolerance to cold, intolerance to heat, unexplained weight gain, unexplained weight loss, others Psychiatric: denies: anxiety, bipolar disorder, depression, hopeless, panic d isorder, schizophrenia, sleepless, suicidal, others All Other Systems: Reviewed and Negative Physical Exam General Appearance: Moderate Distress, Normal HEENT: Normal ENT Inspection, Pharynx Normal, TMs Normal Neck: Full Range of Motion, Non-Tender, Normal, Normal Inspection Respiratory: Chest Non-Tender, No Accessory Muscle Use, Respiratory Distress, Other (Coarse breath sounds) Cardiovascular: No Edema, No JVD, No Murmur, No Gallop, Normal Peripheral Pulses, Regular Rate/Rhythm Breast Exam: Deferred Gastrointestinal: No Organomegaly, Non Tender, No Pulsatile Mass, Normal Bowel Sounds, Soft Genitalia: Deferred Pelvic: Deferred Rectal: Deferred Extremities: No calf tenderness, Normal capillary refill, No pedal edema Musculoskeletal : Apperance: Normal Neurologic: Alert, fashion show director II-XII nml as Tested, No Motor Deficits, Normal Affect, Normal Mood, No Sensory Deficits Cerebellar Function: NOT DONE Reflexes: NOT DONE Skin: Dry, Normal Color, Warm Peripheral Pulses: 3+ Radial (R), 3+ Radial (L) Lymphatic: No Adenopathy Was a procedure done? Was a procedure done?: No Differential Dx Differential Diagnosis: Anxiety, Asthma, Bronchitis, CHF, COPD, Pneumonia, URI X-Ray, Labs, Meds, VS Vital Signs Date Time Temp Pulse Resp B/P (MAP) Pulse Ox O2 Delivery O2 Flow Rate FiO2 08/09/25 16:00 66 08/09/25 14:20 61 19 97 Nasal Cannula* 1 08/09/25 14:19 97.8 61 19 127/104 (112) 97 97.8 08/09/25 13:41 18 91 Nasal Cannula* 1 08/09/25 13:30 97.4 63 14 164/112 90 97.4 Lab Test 08/09/25 14:59 08/09/25 13:43 Range/Units Troponin I High Sensitivity 34 36 *H </=34 ng/L White Blood Count 4.7 4.4-10.8 10^3/uL Red Blood Count 2.80 L 4.0-5.20 10^6/uL Hemoglobin 8.5 L 12.2-16.2 g/dL Hematocrit 26.2 L 36.0-46.0 % Mean Corpuscular Volume 93.5 80.0-100.0 fL Mean Corpuscular Hemoglobin 30.4 28.0-32.0 pg Mean Corpuscular Hemoglobin Concent 32.5 32.0-36.0 g/dL Red Cell Distribution Width 17.2 H 11.8-14.3 % Platelet Count 201 140-450 10^3/uL Mean Platelet Volume 9.6 6.9-10.8 fL Neutrophils (%) (Auto) 37.0-80.0 % Lymphocytes (%) (Auto) 10.0-50.0 % Monocytes (%) (Auto) 0.0-12.0 % Basophils (%) (Auto) 0.0-2.0 % Neutrophils # (Auto) 1.6-8.6 10 ^3/uL Lymphocytes # (Auto) 0.4-5.4 10 ^3/uL Monocytes # (Auto) 0-1.3 10 ^3/uL Differential Total Cells Counted 100.0 100 Neutrophils % (Manual) 54 37.0-80.0 Band Neutrophils % (Manual) 0 Lymphocytes % (Manual) 19 10.0-50.0 Monocytes % (Manual) 20 H 0-12 Eosinophils % (Manual) 7 0-7 Basophils % (Manual) 0 0.0-2.0 Metamyelocytes % (manual) 0 Myelocytes % (Manual) 0 Promyelocytes % (Manual) 0 Blast Cells % (Manual) 0 Reactive Lymphocytes 0 Platelet Estimate Adequate Sodium Level 140 136-145 mmol/L Potassium Level 4.8 3.5-5.1 mmol/L Chloride Level 103 98-107 mmol/L Carbon Dioxide Level 26 20-31 mmol/L Anion Gap 11 5-15 Blood Urea Nitrogen 40 H 9-23 mg/dL Creatinine 2.22 H 0.550-1.02 mg/dL Glomerular Filtration Rate Calc 21 >90 mL/min BUN/Creatinine Ratio 18.0 10.0-20.0 Serum Glucose 96 74-106 mg/dL Calcium Level 8.2 L 8.7-10.4 mg/dL Current Medications Medications (Trade) Dose Ordered Sig/Payam Route Start Time Stop Time Status Last Admin Methylprednisolone Sodium Succinate (Solu Medrol) 125 mg ONCE ONCE IV 08/09/25 13:30 08/09/25 13:32 DC 08/09/25 14:40 Albuterol (Ventolin Medneb) 5 mg ONCE ONCE NEB 08/09/25 13:30 08/09/25 13:32 DC 08/09/25 13:41 Ipratropium [place] (Atrovent Medneb) 0.5 mg ONCE ONCE NEB 08/09/25 13:30 08/09/25 13:32 DC 08/09/25 13:41 Patient alert pain Complaining of shortness a breath. Was given steroid. Was given breathing treatment. Placed on oxygen. Possible pneumonitis. Was given Zosyn. Was given azithromycin. Cardiac marker slightly elevated. Demand ischemia. Explained to the patient. Continue monitoring. Time of 1ST Reevaluation: 14:00 Reevaluation 1ST: Unchanged Patient Education/Counseling: Diagnosis, Treatment, Prognosis Family Education/Counseling: No Family Present SEPSIS Sepsis Screen Physician Orders Chest Portable (08/09/25 13:29) Urinalysis (08/09/25 13:29) Troponin-I Hs (08/09/25 16:29) Vital Signs Date Time Temp Pulse Resp B/P (MAP) Pulse Ox O2 Delivery O2 Flow Rate FiO2 08/09/25 16:00 66 08/09/25 14:20 61 19 97 Nasal Cannula* 1 08/09/25 14:19 97.8 61 19 127/104 (112) 97 97.8 08/09/25 13:41 18 91 Nasal Cannula* 1 08/09/25 13:30 97.4 63 14 164/112 90 97.4 Laboratory Tests Test 08/09/25 13:43 White Blood Count 4.7 10^3/uL (4.4-10.8) Medications Medications Dose Ordered Sig/Payam Route Start Time Stop Time Status Last Admin Dose Admin Albuterol 5 mg ONCE ONCE NEB 08/09/25 13:30 08/09/25 13:32 DC 08/09/25 13:41 Ipratropium [place] 0.5 mg ONCE ONCE NEB 08/09/25 13:30 08/09/25 13:32 DC 08/09/25 13:41 Methylprednisolone Sodium Succinate 125 mg ONCE ONCE IV 08/09/25 13:30 08/09/25 13:32 DC 08/09/25 14:40 Departure 1 Departure Time of Disposition: 17:03 Impression: Primary Impression: Acute respiratory distress Additional Impression: Pneumonitis Disposition: ADMITTED INPATIENT Admit to: Med Surg Condition: Guarded Critical Care Note Critical Care Time?: Yes (90 min-critical care time only) Stability Stability form required: No Heart Score Heart Score: Heart Score Response (Comments) Value History Slightly Suspicious 0 EKG Normal 0 Age >65 2 Risk Factors >3 or Hx ASHD 2 Troponin 1-2 x's Normal limit 1 Total 5 I personally scribed for NIMA DIAS MD ([email or web address]) on 08/09/25 at 13:42. Electronically submitted by Felisha Green [email or web address]). NIMA DIAS MD Aug 09, 2025 13:42
[2025-08-09 13:52] LABS: Hematocrit 26.2 % (36.0-46.0); Hemoglobin 8.5 g/dL (12.2-16.2); Mean Corpuscular Hemoglobin 30.4 pg (28.0-32.0); Mean Corpuscular Volume 93.5 fL (80.0-100.0)
[2025-08-09 14:04] LABS: Chloride 103 mmol/L (98-107); Potassium 4.8 mmol/L (3.5-5.1); Sodium 140 mmol/L (136-145)
[2025-08-09 14:05] LABS: Anion Gap 11 (5-15); Carbon Dioxide 26 mmol/L (20-31)
[2025-08-09 14:06] LABS: Calcium 8.2 mg/dL (8.7-10.4)
[2025-08-09 14:10] LABS: BUN/Creatinine Ratio 18.0 (10.0-20.0); Glucose 96 mg/dL (74-106)
[2025-08-09 14:11] LABS: Blood Urea Nitrogen 40 mg/dL (9-23)
[2025-08-09 14:20] VITALS: PULSE 61; RESP 19; O2SAT 97
[2025-08-09 14:31] LABS: Total Cells Counted 100.0 (100)
[2025-08-09] MEDS: methylPREDNISolone SOD SUCC 125 MG/2 ML VL IV ONE (14:40)
--- NOTE | 2025-08-09 15:40 | DVH ---
CHEST RADIOGRAPH Indication: sob Technique: Single frontal view of the chest was obtained Comparison: XY CHEST PORTABLE on DOS: 06/30/25, XY CHEST XRAY 1 VIEW on DOS: 06/27/25, XY CHEST PORTABL E on DOS: 06/23/25 FINDINGS: Lines and Tubes: Dual-chamber pacemaker is in place with pulse generator over the left chest. Lungs: Pulmonary vascular congestion is seen bilaterally. Pleura: No effusion. No pneumothorax. Cardiomediastinal contours: Cardiac size is at the upper limits of normal. Bones: No acute osseous abnormality. IMPRESSION: 1. Pulmonary vascular congestion. 2. Findings are suggestive of congestive failure. Correlate clinically.
[2025-08-09] MEDS: PIPERACILLIN-TAZOB 3.375GM 100 ML IV ONE ×2 (17:38→21:58)
[2025-08-09] MEDS: AZITHROMYCIN 500MG/ 250ML 250 ML IV ONE (17:59)
[2025-08-09 18:15] LABS: Urine Protein, UAD Negative (Negative)
--- NOTE | 2025-08-09 20:09 | DVHHPRES ---
History of Present Illness Resident Creating Document: LORI LANG RESIDENT History of Present Illness 85-year-old female with past medical history of chronic diastolic heart failure, HFpEF 65%, status post pacemaker on 06/18/2025, hypertension, severe aortic stenosis status post TAVR, gout, COPD, mitral stenosis, GERD, CKD stage 4 presented to the emergency department with a chief complaint of cough for 5 days which was associated with mucus plugs that were brown in color for the past day. Patient states that she uses 4 L of oxygen at home and has been hearing herself wheeze and is short of breath in the past few days. She was discharged from [facility] on 07/05/2025 and was treated for pneumonia and pacemaker was placed on 06/18/2025. She is currently on Eliquis. She denies any fever, chills, nausea, vomiting, diarrhea, dizziness, hematemesis, blurred vision. She is currently on 2 L of oxygen with saturation of 93 and chest x-ray shows pulmonary vascular congestion. past medical history: As stated in [facility] past surgical history: Pacemaker Family history: Reviewed, noncontributory to illness Social history: Nonsmoker, denies drinking alcohol or taking any other drugs allergies: None code: Full code Review of Systems Constitutional: No: Fever, Chills, Sweats, Weakness, Malaise, Other Eyes: No: Pain, Vision change, Conjunctivae inflammation, Eyelid inflammation, Other, Redness ENT: No: Ear pain, Ear discharge, Nose pain, Nose discharge, Nose congestion, Mouth pain, Mouth swelling, Throat pain, Throat swelling, Other Respiratory: Cough, Shortness of breath, SOB with excertion, Wheezing, Sputum; No: Dry, Hemoptysis, Pleuritic Pain, Wheezing, Other Cardiovascular: Chest Pain; No: Palpitations, Orthopnea, Paroxysmal Noc. Dyspnea, Edema, Lt Headedness, Other Gastrointestinal: No: Nausea, Vomiting, Abdominal Pain, Diarrhea, Constipation, Melena, Hematochezia, Other Genitourinary: No Dysuria, No Frequency, No Incontinence, No Hematuria, No Retention, No Other Musculoskeletal: No: other, neck pain, shoulder pain, arm pain, back pain, hand pain, leg pain, foot pain Skin: No: Rash, Lesions, Jaundice, Bruising, Other Neurological: No: Weakness, Numbness, Incoordination, Change in speech, Confusion, Seizures, Other Allergies: Coded Allergies: Acetaminophen (Verified Allergy, Unknown, 08/09/25) Hydrocodone (Verified Allergy, Unknown, 08/09/25) Tramadol (Verified Adverse Reaction, Unknown, 06/18/25) Medications Current Medications Medications Dose Ordered Sig/Payam Route Start Time Stop Time Status Last Admin Dose Admin Albuterol 2.5 mg Q4HPRN PRN NEB 08/09/25 19:15 Ipratropium Greene 0.5 mg Q4HPRN PRN NEB 08/09/25 19:15 Piperacillin Sod/ Tazobactam Sod 100 ml @ 25 mls/hr Q8HR IV 08/09/25 22:00 UNV Azithromycin 250 ml @ 125 mls/hr DAILY IV 08/10/25 10:00 UNV Prednisone 40 mg DAILY PO 08/10/25 10:00 UNV Furosemide 80 mg DAILY IV 08/09/25 19:45 UNV Enoxaparin Sodium 100 mg Q12HR SC 08/10/25 10:00 UNV Pantoprazole Sodium 40 mg DAILY@0600 PO 08/10/25 06:00 UNV Atorvastatin Calcium 40 mg HS PO 08/09/25 22:00 UNV Exam Vital Signs Vital Signs Date Time Temp Pulse Resp B/P (MAP) Pulse Ox O2 Delivery O2 Flow Rate FiO2 08/09/25 19:43 98.0 72 19 125/56 (79) 98 98.0 08/09/25 14:20 Nasal Cannula* 1 24 Exam Pt is lying on bed General Appearance: Alert, Oriented X3, Cooperative, Not in acute distress HEENT: Atraumatic, Mucous membranes moist/pink Respiratory: Clear to auscultation, Normal air movement, bilateral wheezing Cardiovascular: Regular rate, Normal S1, Normal S2, No murmurs Abdominal: Active bowel sounds, Soft, no distention, no tenderness Extremities: No edema, Normal pulses, +1 pitting edema in bilateral legs Skin: No Significant rash, except past surgical scars Neuro: Normal speech, sensorimotor deficits none Psych/Mental Status: Mental status NL, Mood NL Nurse was there as mainframe consultant during examination Labs/Xrays Labs Test 08/09/25 17:10 08/09/25 16:59 08/09/25 13:43 Range/Units Urine Color Colorless Yellow Urine Clarity Clear Clear Urine pH 5.5 5.0-9.0 Urine Specific [place] 1.006 1.001-1.035 Urine Protein Negative Negative Urine Ketones Negative Negative Urine Blood Negative Negative /uL Urine Nitrite Negative Negative Urine Bilirubin Negative Negative Urine Urobilinogen Normal Negative mg/dL Urine Leukocyte Esterase Negative Negative /uL Urine RBC None seen 0 - 4 /hpf Urine Microscopic WBC < 1 0-5 /HPF Urine Squamous Epithelial Cells None seen <5 /hpf Urine Bacteria Many H None Seen /hpf Urine Glucose Normal Normal mg/dL Troponin I High Sensitivity 29 </=34 ng/L White Blood Count 4.7 4.4-10.8 10^3/uL Red Blood Count 2.80 L 4.0-5.20 10^6/uL Hemoglobin 8.5 L 12.2-16.2 g/dL Hematocrit 26.2 L 36.0-46.0 % Mean Corpuscular Volume 93.5 80.0-100.0 fL Mean Corpuscular Hemoglobin 30.4 28.0-32.0 pg Mean Corpuscular Hemoglobin Concent 32.5 32.0-36.0 g/dL Red Cell Distribution Width 17.2 H 11.8-14.3 % Platelet Count 201 140-450 10^3/uL Mean Platelet Volume 9.6 6.9-10.8 fL Neutrophils (%) (Auto) 37.0-80.0 % Lymphocytes (%) (Auto) 10.0-50.0 % Monocytes (%) (Auto) 0.0-12.0 % Basophils (%) (Auto) 0.0-2.0 % Neutrophils # (Auto) 1.6-8.6 10 ^3/uL Lymphocytes # (Auto) 0.4-5.4 10 ^3/uL Monocytes # (Auto) 0-1.3 10 ^3/uL Differential Total Cells Counted 100.0 100 Neutrophils % (Manual) 54 37.0-80.0 Band Neutrophils % (Manual) 0 Lymphocytes % (Manual) 19 10.0-50.0 Monocytes % (Manual) 20 H 0-12 Eosinophils % (Manual) 7 0-7 Basophils % (Manual) 0 0.0-2.0 Metamyelocytes % (manual) 0 Myelocytes % (Manual) 0 Promyelocytes % (Manual) 0 Blast Cells % (Manual) 0 Reactive Lymphocytes 0 Platelet Estimate Adequate Sodium Level 140 136-145 mmol/L Potassium Level 4.8 3.5-5.1 mmol/L Chloride Level 103 98-107 mmol/L Carbon Dioxide Level 26 20-31 mmol/L Anion Gap 11 5-15 Blood Urea Nitrogen 40 H 9-23 mg/dL Creatinine 2.22 H 0.550-1.02 mg/dL Glomerular Filtration Rate Calc 21 >90 mL/min BUN/Creatinine Ratio 18.0 10.0-20.0 Serum Glucose 96 74-106 mg/dL Calcium Level 8.2 L 8.7-10.4 mg/dL SEPSIS Sepsis Screen Date sepsis recognized/suspect: Aug 09, 2025 Time Sepsis recognized/suspect: 1329 Recent Procedure: No On Antibiotic Therapy: No Respiratory Rate >20: No Heart Rate >90: No Temp<36 C (96.8 F) or >38.3 C: No SBP <90 or MAP <65 mmHG: No New Acute Mental Status Change: No Is the patient on CPAP, BIPAP,: No Physician Orders Chest Portable (08/09/25 13:29) Admit (08/09/25 19:06) Oxygen By Nasal Cannula (08/09/25 19:06) Stat Ekg For Chest Pain (08/09/25 19:06) Notify Md Of Changes From Base (08/09/25 19:06) Food Service Director For 24 Hours (08/09/25 19:06) Emergency Dysrhythmia Protocol (08/09/25 19:06) Rhythm Strips Once Every Shift (08/09/25 19:06) Albuterol Medneb (Ventolin Medneb) (08/09/25 19:15) Ipratropium Medneb (Atrovent Medneb) (08/09/25 19:15) Piperacillin-Tazob 3.375gm (Zosyn 3.375g (08/09/25 19:45) Piperacillin-Tazob 3.375gm (Zosyn 3.375g (08/09/25 22:00) Azithromycin 500mg/ 250ml (Zithromax 50 (08/10/25 10:00) Mrsa Screen (08/09/25 19:31) Covid19 Antigen Eladia (08/09/25 ) Rapid Influenza A&B (08/09/25 19:31) Prednisone Tablet (08/09/25 19:45) Prednisone Tablet (08/10/25 10:00) Respiratory Culture W/ Gs (08/09/25 19:31) Chest Portable (08/10/25 04:00) Electrocardigram (08/09/25 19:31) Troponin-I Hs (08/09/25 19:31) B-Type Natriuretic Peptide (08/09/25 19:31) Thyroid Stimulating Hormone (08/09/25 19:31) Furosemide Injection (Lasix Injection) (08/09/25 19:45) D-Dimer (08/09/25 19:31) Enoxaparin Sodium (Lovenox) (08/09/25 19:45) Enoxaparin Sodium (Lovenox) (08/10/25 10:00) Document Fluid Input And Outpu (08/09/25 19:31) Strict I & O QSHIFT (08/09/25 19:31) Cardiac Diet-2gna,Lofat,Lochol (08/10/25 Breakfast) Urinalysis (08/09/25 19:39) Magnesium (08/09/25 19:40) Comprehensive Metabolic Panel (08/09/25 19:40) Basic Metabolic Panel (08/10/25 04:00) Complete Blood Count (08/10/25 04:00) Magnesium (08/10/25 04:00) Pantoprazole Tablet (Protonix Tablet) (08/09/25 19:45) Pantoprazole Tablet (Protonix Tablet) (08/10/25 06:00) Atorvastatin (Lipitor) (08/09/25 22:00) Vital Signs Date Time Temp Pulse Resp B/P (MAP) Pulse Ox O2 Delivery O2 Flow Rate FiO2 08/09/25 19:43 98.0 72 19 125/56 (79) 98 98.0 08/09/25 18:00 60 16 131/50 (77) 97 08/09/25 16:00 66 08/09/25 15:00 60 18 111/45 (67) 97 08/09/25 14:20 61 19 97 Nasal Cannula* 1 24 08/09/25 14:19 97.8 61 19 127/104 (112) 97 97.8 08/09/25 13:41 18 91 Nasal Cannula* 1 24 08/09/25 13:30 97.4 63 14 164/112 90 97.4 Laboratory Tests Test 08/09/25 13:43 White Blood Count 4.7 10^3/uL (4.4-10.8) Medications Medications Dose Ordered Sig/Payam Route Start Time Stop Time Status Last Admin Dose Admin Albuterol 2.5 mg ONCE ONCE NEB 08/09/25 19:15 08/09/25 19:32 DC 08/09/25 19:42 2.5 MG Albuterol 5 mg ONCE ONCE NEB 08/09/25 13:30 08/09/25 13:32 DC 08/09/25 13:41 5 MG Azithromycin 250 ml @ 125 mls/hr ONCE ONCE IV 08/09/25 17:15 08/09/25 19:14 DC 08/09/25 17:59 125 MLS/HR Ipratropium Greene 0.5 mg ONCE ONCE NEB 08/09/25 13:30 08/09/25 13:32 DC 08/09/25 13:41 0.5 MG Ipratropium Greene 0.5 mg ONCE ONCE NEB 08/09/25 19:15 08/09/25 19:32 DC 08/09/25 19:42 0.5 MG Methylprednisolone Sodium Succinate 125 mg ONCE ONCE IV 08/09/25 13:30 08/09/25 13:32 DC 08/09/25 14:40 125 MG Piperacillin Sod/ Tazobactam Sod 100 ml @ 100 mls/hr ONCE ONCE IV 08/09/25 17:15 08/09/25 18:14 DC 08/09/25 17:38 100 MLS/HR Assessment/Plan Assessment/Plan * Acute Hypoxic respiratory failure due to acute exacerbation of COPD versus CHF versus pneumonia * acute exacerbation of COPD * Questionable pneumonia, Gram-positive, Gram-negative. - Med neb ipratropium 0.5 mg q.4 PRN - Med neb albuterol 2.5 mg q.4 PRN - prednisolone 40 mg p.o. daily scheduled - Zosyn 3.375 IV Q8 scheduled - Azithromycin 500 mg IV daily scheduled - Respiratory culture - Influenza, COVID test - MRSA screen - Protonix 40 mg p.o. daily * Acute on chronic diastolic heart failure, HFpEF 65 % * Hypertension * NSTEMI type 2 * Severe aortic stenosis, s/p TAVR. - Severe Mitral stenosis - status post pacemaker 06/18/2025 - last echo done on 07/01/25 - telemetry - EKG - atorvastatin 40 mg p.o. HS - Furosemide 80 mg IV daily scheduled - Enoxaparin sodium 100 mg subcutaneous b.i.d. - strict input-output measurement - BNP - Troponin I 36>34>29 * Acute on chronic renal failure stage 4, likely cardiorenal * Anemia of chronic disease - GFR 21 - creatinine 2.22, BUN 40 - monitor BMP * Morbid obesity - patient counseled regarding weight loss, exercise * Gout - continue home medication allopurinol 100 mg GI prophylaxis: Protonix 40 mg p.o. daily DVT prophylaxis: Lovenox 100 mg subcutaneous b.i.d. Diet: cardiac Goals of care discussed with the patient for more than 27 minutes: Full code status Case discussed with Dr. Justice, patient and nurse. Plan discussed with: Patient Date of Service: Aug 09, 2025 Billing Provider: FAIZAN JUSTICE MD Common Visit Codes: [id number] INP/OBS CARE (HIGH) Secondary Visit Codes: [id number] CARE PLAN 30 MINUTES LORI LANG RESIDENT Aug 09, 2025 20:09
[2025-08-09 20:10] VITALS: BP 125/56; PULSE 72; RESP 19; TEMP 98; O2SAT 97
[2025-08-09 20:21] LABS: Alkaline Phosphatase 57 U/L (46-116); Anion Gap 15 (5-15); BUN/Creatinine Ratio 19.1 (10.0-20.0); Carbon Dioxide 22 mmol/L (20-31); Chloride 103 mmol/L (98-107); Glucose 96 mg/dL (74-106); Magnesium 2.1 mg/dL (1.6-2.6); Potassium 4.8 mmol/L (3.5-5.1); Sodium 140 mmol/L (136-145); Total Protein 6.2 g/dL (5.7-8.2)
[2025-08-09 20:22] LABS: Albumin 3.9 g/dL (3.2-4.8); Bilirubin, Total 0.5 mg/dL (0.2-1.0)
[2025-08-09 20:23] LABS: Alanine Aminotransferase 43 U/L (7-40); Blood Urea Nitrogen 42 mg/dL (9-23); Calcium 8.3 mg/dL (8.7-10.4)
[2025-08-09 21:38] LABS: COVID19 ANTIGEN SOFIA FIA POSITIVE (NEGATIVE)
[2025-08-09] MEDS: predniSONE 20 MG TAB PO ONE (21:57)
[2025-08-09] MEDS: PANTOPRAZOLE 40 MG TAB PO ONE (21:57)
[2025-08-09] MEDS: FUROSEMIDE 100 MG/10ML VIAL IV SCH (22:00)
[2025-08-09] MEDS: ENOXAPARIN SOD 100 MG/1 ML SYRINGE SC ONE (22:00)
[2025-08-09] MEDS: ATORVASTATIN 20 MG TAB PO SCH (22:26)
[2025-08-10] VITALS (12 sets, daily range): BP systolic 132–167; BP diastolic 44–77; PULSE 63–72; RESP 18–20; TEMP 97.1–98.5; O2SAT 90–100
[2025-08-10] MEDS: PIPERACILLIN-TAZOB 3.375GM 100 ML IV SCH (05:35)
[2025-08-10] MEDS: PANTOPRAZOLE 40 MG TAB PO SCH (05:35)
--- NOTE | 2025-08-10 06:25 | ECG ---
[facility] Test Date: 2025-08-09 Test Time: 19:42:31 Pat Name: KEN BENTLEY Department: [facility] ED Patient ID: [facility]-[id number] Room: 0205 Gender: F Governor Assembler: MINNA : 1940 Requested By: MARINE WASHINGTON Order Number: [id number] Reading MD: Farooq Jarquin Measurements Intervals [place] Rate: 67 P: 11 KS: 215 QRS: -75 QRSD: 165 T: 69 QT: 520 QTc: 549 Interpretive Statements Atrial-sensed ventricular-paced rhythm No further analysis attempted due to paced rhythm Baseline wander in lead(s) V2 Electronically Signed On 08-12-2025 22:09:02 PDT by Farooq Jarquin Please click the below link to view image of tracing.
[2025-08-10 07:50] LABS: Hematocrit 28.4 % (36.0-46.0); Hemoglobin 9.6 g/dL (12.2-16.2); Mean Corpuscular Hemoglobin 31.1 pg (28.0-32.0); Mean Corpuscular Volume 92.2 fL (80.0-100.0); Nucleated Red Blood Cells % 0.1 %
[2025-08-10 07:55] LABS: Anion Gap 12 (5-15); Carbon Dioxide 28 mmol/L (20-31); Chloride 100 mmol/L (98-107); Potassium 4.0 mmol/L (3.5-5.1); Sodium 140 mmol/L (136-145)
[2025-08-10 07:56] LABS: Calcium 9.2 mg/dL (8.7-10.4)
[2025-08-10 08:01] LABS: BUN/Creatinine Ratio 14.1 (10.0-20.0); Blood Urea Nitrogen 30 mg/dL (9-23); Glucose 130 mg/dL (74-106); Magnesium 2.3 mg/dL (1.6-2.6)
--- NOTE | 2025-08-10 08:17 | DVH ---
CHEST RADIOGRAPH Indication: sob Technique: Single frontal view of the chest was obtained Comparison: XY CHEST PORTABLE on DOS: 08/09/25 FINDINGS: Lines and Tubes: There is a dual lead pacemaker with right atrial and ventricular leads. Lungs: No focal consolidation. Pleura: No effusion. No pneumothorax. Cardiomediastinal contours: Unremarkable Bones: No acute osseous abnormality. IMPRESSION: 1. No acute cardiopulmonary disease.
[2025-08-10] MEDS: ENOXAPARIN SOD 100 MG/1 ML SYRINGE SC SCH (10:18)
[2025-08-10] MEDS: predniSONE 20 MG TAB PO SCH (10:18)
[2025-08-10] MEDS: AZITHROMYCIN 500MG/ 250ML 250 ML IV SCH (10:18)
[2025-08-10] MEDS: IPRATROPIUM BROM 0.5 MG/2.5ML INH SOL NEB PRN (10:27)
[2025-08-10] MEDS: ALBUTEROL SULF 2.5 MG/0.5ML(0.5%) NEB SOLN NEB PRN (10:27)
--- NOTE | 2025-08-10 13:37 | DVHPNRES ---
Progress Note Date Seen: Aug 10, 2025 Resident Creating Document: LORI LANG RESIDENT Has the PT tested + for MRSA If YES, has PT been informed?: Yes Medical Necessity Reason Pt with a Central, PICC or Fol: Yes Subjective Review of Systems 85-year-old female with past medical history of chronic diastolic heart failure, HFpEF 65%, a flutter with ana status post pacemaker on 06/18/2025, hypertension, severe aortic stenosis status post TAVR, gout, COPD, mitral stenosis, GERD, CKD stage 4 presented to the emergency department with a chief complaint of cough for 5 days which was associated with mucus plugs that were brown in color for the past day. Patient states that she uses 4 L of oxygen at home and has been hearing herself wheeze and is short of breath in the past few days. She was discharged from [facility] on 07/05/2025 and was treated for pneumonia and pacemaker was placed on 06/18/2025. She is currently on Eliquis. She denies any fever, chills, nausea, vomiting, diarrhea, dizziness, hematemesis, blurred vision. She is currently on 2 L of oxygen with saturation of 93 and chest x-ray shows pulmonary vascular congestion. past medical history: As stated in [facility] past surgical history: Pacemaker Family history: Reviewed, noncontributory to illness Social history: Nonsmoker, denies drinking alcohol or taking any other drugs allergies: None code: Full code ROS 08/10/2025: Today the patient reports feeling better but still has bilateral wheezing. Reports show she is COVID positive. Patient reports she takes melatonin 10 mg for insomnia which we began today. We are continuing her IV antibiotics, prednisolone and med neub. possibly starting Jardiance from tomorrow. Objective vital signs Vital Sign Date Time Temp Pulse Resp B/P (MAP) Pulse Ox O2 Delivery O2 Flow Rate FiO2 08/10/25 12:31 98.2 66 18 143/75 (97) 97 98.2 08/10/25 10:27 Nasal Cannula* 2 28 Total Intake and Output 08/09/25 08/09/25 08/10/25 15:00 23:00 07:00 Intake Total 225 ml 200 ml Output Total 350 ml Balance 225 ml -150 ml medications Current Medications Medications Dose Ordered Sig/Payam Route Start Time Stop Time Status Last Admin Dose Admin Albuterol 2.5 mg Q4HPRN PRN NEB 08/09/25 19:15 08/10/25 10:27 2.5 MG Ipratropium Latta 0.5 mg Q4HPRN PRN NEB 08/09/25 19:15 08/10/25 10:27 0.5 MG Piperacillin Sod/ Tazobactam Sod 100 ml @ 25 mls/hr Q8HR IV 08/10/25 06:00 08/10/25 05:35 25 MLS/HR Azithromycin 250 ml @ 125 mls/hr DAILY IV 08/10/25 10:00 08/10/25 10:18 125 MLS/HR Prednisone 40 mg DAILY PO 08/10/25 10:00 08/10/25 10:18 40 MG Furosemide 80 mg DAILY IV 08/09/25 19:45 08/10/25 10:18 80 MG Enoxaparin Sodium 100 mg DAILY SC 08/10/25 10:00 08/10/25 10:18 100 MG Pantoprazole Sodium 40 mg DAILY@0600 PO 08/10/25 06:00 08/10/25 05:35 40 MG Atorvastatin Calcium 40 mg HS PO 08/09/25 22:00 08/09/25 22:26 40 MG Allopurinol 100 mg DAILY PO 08/11/25 10:00 Melatonin 10 mg HS PO 08/10/25 22:00 Carvedilol 3.125 mg BID PO 08/10/25 22:00 Examination Pt is lying on bed General Appearance: Alert, Oriented X3, Cooperative, Not in acute distress HEENT: Atraumatic, Mucous membranes moist/pink, on 2l of o2 NC Respiratory: Clear to auscultation, Normal air movement, bilateral wheezing Cardiovascular: Regular rate, Normal S1, Normal S2, No murmurs Abdominal: Active bowel sounds, Soft, no distention, no tenderness Extremities: No edema, Normal pulses, +1 pitting edema in bilateral legs Skin: No Significant rash, except past surgical scars Neuro: Normal speech, sensorimotor deficits none Psych/Mental Status: Mental status NL, Mood NL Nurse was there as cdl a driver during examination laboratory and microbiology Laboratory Tests 08/10/25 06:53 Test 08/10/25 06:53 Range/Units Serum Glucose 130 H 74-106 mg/dL Microbiology Date/Time Source Procedure Growth Status 08/10/25 06:42 Nose MRSA Screen - Final Complete Labs and/or images reviewed: Labs reviewed by me, Image(s) reviewed by me Problem List/Assessment/Plan Problem List/Assessment/Plan * Acute Hypoxic respiratory failure due to acute exacerbation of COPD versus CHF versus pneumonia * acute exacerbation of COPD * Questionable pneumonia, Gram-positive, Gram-negative. - Med neb ipratropium 0.5 mg q.4 PRN - Med neb albuterol 2.5 mg q.4 PRN - prednisolone 40 mg p.o. daily scheduled - Zosyn 3.375 IV Q8 scheduled - Azithromycin 500 mg IV daily scheduled - Respiratory culture - Influenza neg, COVID test- POSITIVE - MRSA screen - Protonix 40 mg p.o. daily - * Acute on chronic diastolic heart failure, HFpEF 65 % * Hypertension * NSTEMI type 2 * Severe aortic stenosis, s/p TAVR. * Severe Mitral stenosis - status post pacemaker 06/18/2025 - last echo done on 07/01/25 - telemetry - EKG - atorvastatin 40 mg p.o. HS - Furosemide 80 mg IV daily scheduled - Enoxaparin sodium 100 mg subcutaneous b.i.d. - strict input-output measurement - BNP 390.37 - Troponin I 36>34>29 * Acute on chronic renal failure stage 4, likely cardiorenal * Anemia of chronic disease - GFR 21 - creatinine 2.22, BUN 40 - monitor BMP * Morbid obesity - patient counseled regarding weight loss, exercise * Gout - continue home medication allopurinol 100 mg GI prophylaxis: Protonix 40 mg p.o. daily DVT prophylaxis: Lovenox 100 mg subcutaneous b.i.d. Diet: cardiac Goals of care discussed with the patient for more than 27 minutes: Full code status Case discussed with Dr. Justice, patient and nurse. Plan discussed with: Patient, Other (rn) My Orders My Orders Orders - LORI LANG RESIDENT Procedure Category Date Status Time Allopurinol Tablet PHA 08/11/25 In Process (Zyloprim Tablet) 10:00 Melatonin (Melatonin) PHA 08/10/25 In Process 22:00 Carvedilol Tablet PHA 08/10/25 In Process (Coreg Tablet) 22:00 Dietary Evaluation Review Comments: 1) Continue current plan of care 2) Monitor PO intake, lab values, weight trend, and I/O Expected Outcomes/Goals: Lab values to improve Fu 3-5 days Date of Service: Aug 10, 2025 Billing Provider: FAIZAN JUSTICE MD Common Visit Codes: [id number] INP/OBS CARE(HIGH) LORI LANG RESIDENT Aug 10, 2025 13:37 FAIZAN JUSTICE MD Aug 12, 2025 00:12
--- NOTE | 2025-08-10 14:43 | MEDREC ---
[facility] Intervention Section I [facility] Intervention: Review courses of therapy (QTc 549, recommend to switch azithromycin to doxycycline) ANNEMARIE LESLIE [facility] RESIDENT Aug 10, 2025 14:43
[2025-08-10] MEDS: GABAPENTIN 100 MG CAP PO ONE (17:53)
[2025-08-10] MEDS: MELATONIN 5 MG TAB PO SCH (22:16)
[2025-08-10] MEDS: CARVEDILOL 3.125 MG TAB PO SCH (22:17)
[2025-08-10] MEDS: GABAPENTIN 100 MG CAP PO SCH (22:17)
[2025-08-11] VITALS (10 sets, daily range): BP systolic 101–144; BP diastolic 42–78; PULSE 60–62; RESP 13–19; TEMP 97.6–98.4; O2SAT 96–100
[2025-08-11 07:12] LABS: Hematocrit 27.5 % (36.0-46.0); Hemoglobin 9.2 g/dL (12.2-16.2); Mean Corpuscular Hemoglobin 30.4 pg (28.0-32.0); Mean Corpuscular Volume 91.2 fL (80.0-100.0); Nucleated Red Blood Cells % 0.2 %
[2025-08-11 07:23] LABS: Potassium 3.6 mmol/L (3.5-5.1); Sodium 139 mmol/L (136-145)
[2025-08-11 07:24] LABS: Anion Gap 12 (5-15); Calcium 8.8 mg/dL (8.7-10.4); Carbon Dioxide 29 mmol/L (20-31)
[2025-08-11 07:25] LABS: Chloride 98 mmol/L (98-107)
[2025-08-11 07:29] LABS: BUN/Creatinine Ratio 15.8 (10.0-20.0)
[2025-08-11 07:31] LABS: Blood Urea Nitrogen 37 mg/dL (9-23); Glucose 131 mg/dL (74-106)
[2025-08-11] MEDS: ALLOPURINOL 100 MG TAB PO SCH (10:09)
--- NOTE | 2025-08-11 14:02 | DVHPNRES ---
Progress Note Date Seen: Aug 11, 2025 Resident Creating Document: LORI LANG RESIDENT Has the PT tested + for MRSA If YES, has PT been informed?: Yes Medical Necessity Reason Pt with a Central, PICC or Fol: Yes The following are medically ne: [place] Catheter Subjective Review of Systems 85-year-old female with past medical history of chronic diastolic heart failure, HFpEF 65%, a flutter with ana status post pacemaker on 06/18/2025, hypertension, severe aortic stenosis status post TAVR, gout, COPD, mitral stenosis, GERD, CKD stage 4 presented to the emergency department with a chief complaint of cough for 5 days which was associated with mucus plugs that were brown in color for the past day. Patient states that she uses 4 L of oxygen at home and has been hearing herself wheeze and is short of breath in the past few days. She was discharged from [facility] on 07/05/2025 and was treated for pneumonia and pacemaker was placed on 06/18/2025. She is currently on Eliquis. She denies any fever, chills, nausea, vomiting, diarrhea, dizziness, hematemesis, blurred vision. She is currently on 2 L of oxygen with saturation of 93 and chest x-ray shows pulmonary vascular congestion. past medical history: As stated in [place] past surgical history: Pacemaker Family history: Reviewed, noncontributory to illness Social history: Nonsmoker, denies drinking alcohol or taking any other drugs allergies: None code: Full code ROS 08/10/2025: Today the patient reports feeling better but still has bilateral wheezing. Reports show she is COVID positive. Patient reports she takes melatonin 10 mg for insomnia which we began today. We are continuing her IV antibiotics, prednisolone and med neub. possibly starting Jardiance from tomorrow. 08/11/2025: Today patient was seen and examined by me at the bedside. Patient reports feeling slightly better than yesterday. We will be continuing her antibiotics and med nebulizations. Gabapentin is given twice a day for her pins and needle sensation in the feet. Objective vital signs Vital Sign Date Time Temp Pulse Resp B/P (MAP) Pulse Ox O2 Delivery O2 Flow Rate FiO2 08/11/25 12:51 98.4 60 17 144/78 (100) 100 98.4 08/11/25 10:30 Nasal Cannula 2.0 08/11/25 10:30 28 Total Intake and Output 08/10/25 08/10/25 08/11/25 15:00 23:00 07:00 Intake Total 350 ml 900 ml 900 ml Output Total 1610 ml 700 ml Balance 350 ml -710 ml 200 ml medications Current Medications Medications Dose Ordered Sig/Payam Route Start Time Stop Time Status Last Admin Dose Admin Piperacillin Sod/ Tazobactam Sod 100 ml @ 25 mls/hr Q8HR IV 08/10/25 06:00 08/11/25 13:10 25 MLS/HR Azithromycin 250 ml @ 125 mls/hr DAILY IV 08/10/25 10:00 08/11/25 10:09 125 MLS/HR Prednisone 40 mg DAILY PO 08/10/25 10:00 08/11/25 10:10 40 MG Furosemide 80 mg DAILY IV 08/09/25 19:45 08/11/25 10:03 80 MG Enoxaparin Sodium 100 mg DAILY SC 08/10/25 10:00 08/11/25 10:10 100 MG Pantoprazole Sodium 40 mg DAILY@0600 PO 08/10/25 06:00 08/11/25 05:49 40 MG Atorvastatin Calcium 40 mg HS PO 08/09/25 22:00 08/10/25 22:17 40 MG Allopurinol 100 mg DAILY PO 08/11/25 10:00 08/11/25 10:09 100 MG Melatonin 10 mg HS PO 08/10/25 22:00 08/10/25 22:16 10 MG Carvedilol 3.125 mg BID PO 08/10/25 22:00 08/11/25 10:10 3.125 MG Gabapentin 100 mg TID PO 08/10/25 22:00 08/11/25 13:10 100 MG Examination Pt is lying on bed General Appearance: Alert, Oriented X3, Cooperative, Not in acute distress HEENT: Atraumatic, Mucous membranes moist/pink, on 2l of o2 NC Respiratory: Clear to auscultation, Normal air movement, bilateral wheezing Cardiovascular: Regular rate, Normal S1, Normal S2, No murmurs Abdominal: Active bowel sounds, Soft, no distention, no tenderness Extremities: No edema, Normal pulses, +1 pitting edema in bilateral legs Skin: No Significant rash, except past surgical scars Neuro: Normal speech, sensorimotor deficits none Psych/Mental Status: Mental status NL, Mood NL Nurse was there as jogger operator during exam laboratory and microbiology Laboratory Tests 08/11/25 06:37 Test 08/11/25 06:37 Range/Units Serum Glucose 131 H 74-106 mg/dL Microbiology Date/Time Source Procedure Growth Status 08/10/25 06:42 Nose MRSA Screen - Final Complete Labs and/or images reviewed: Labs reviewed by me, Image(s) reviewed by me Problem List/Assessment/Plan Problem List/Assessment/Plan * Acute Hypoxic respiratory failure due to acute exacerbation of COPD versus CHF versus pneumonia * acute exacerbation of COPD * Questionable pneumonia, Gram-positive, Gram-negative. - Med neb ipratropium 0.5 mg q.4 PRN - Med neb albuterol 2.5 mg q.4 PRN - prednisolone 40 mg p.o. daily scheduled - Zosyn 3.375 IV Q8 scheduled - Azithromycin 500 mg IV daily scheduled - Respiratory culture - Influenza neg, COVID test- POSITIVE - MRSA screen - Protonix 40 mg p.o. daily - * Acute on chronic diastolic heart failure, HFpEF 65 % * Hypertension * NSTEMI type 2 * Severe aortic stenosis, s/p TAVR. * Severe Mitral stenosis - status post pacemaker 06/18/2025 - last echo done on 07/01/25 - telemetry - EKG - atorvastatin 40 mg p.o. HS - Furosemide 80 mg IV daily scheduled - Enoxaparin sodium 100 mg subcutaneous b.i.d. - strict input-output measurement - BNP 390.37 - Troponin I 36>34>29 * Acute on chronic renal failure stage 4, likely cardiorenal * Anemia of chronic disease - GFR 21 - creatinine 2.22, BUN 40 - monitor BMP * Morbid obesity - patient counseled regarding weight loss, exercise * Gout - continue home medication allopurinol 100 mg GI prophylaxis: Protonix 40 mg p.o. daily DVT prophylaxis: Lovenox 100 mg subcutaneous b.i.d. Diet: cardiac Goals of care discussed with the patient for more than 27 minutes: Full code status Case discussed with Dr. Justice, and patient Plan discussed with: Patient My Orders My Orders Orders - LORI LANG RESIDENT Procedure Category Date Status Time Gabapentin Capsule PHA 08/10/25 In Process (Neurontin Capsule) 22:00 Discontinue Tele MOODY 08/11/25 In Process 10:37 Transfer Orders XFER 10/1/25 Transmitted 10:37 Dietary Evaluation Review Comments: 1) Continue current plan of care 2) Monitor PO intake, lab values, weight trend, and I/O Expected Outcomes/Goals: Lab values to improve Fu 3-5 days Date of Service: Aug 11, 2025 Billing Provider: FAIZAN JUSTICE MD Common Visit Codes: [id number] INP/OBS CARE(HIGH) LORI LANG RESIDENT Aug 11, 2025 14:02 FAIZAN JUSTICE MD Aug 11, 2025 22:12
[2025-08-12] VITALS (8 sets, daily range): BP systolic 95–154; BP diastolic 46–82; PULSE 58–60; RESP 16–19; TEMP 97.3–98; O2SAT 97–100
[2025-08-12 06:07] LABS: Hematocrit 27.8 % (36.0-46.0); Hemoglobin 9.4 g/dL (12.2-16.2); Mean Corpuscular Hemoglobin 30.8 pg (28.0-32.0); Mean Corpuscular Volume 91.5 fL (80.0-100.0); Nucleated Red Blood Cells % 0.0 %
[2025-08-12 06:20] LABS: Anion Gap 11 (5-15); Chloride 99 mmol/L (98-107); Potassium 3.9 mmol/L (3.5-5.1); Sodium 142 mmol/L (136-145)
[2025-08-12 06:22] LABS: Calcium 8.9 mg/dL (8.7-10.4); Carbon Dioxide 32 mmol/L (20-31)
[2025-08-12 06:26] LABS: Glucose 104 mg/dL (74-106)
[2025-08-12 06:27] LABS: BUN/Creatinine Ratio 16.3 (10.0-20.0)
[2025-08-12 06:31] LABS: Blood Urea Nitrogen 42 mg/dL (9-23)
--- NOTE | 2025-08-12 12:21 | DVHPNRES ---
Progress Note Date Seen: Aug 12, 2025 Resident Creating Document: LORI LANG RESIDENT Has the PT tested + for MRSA If YES, has PT been informed?: Yes Medical Necessity Reason Pt with a Central, PICC or Fol: Yes The following are medically ne: [place] Catheter Subjective Review of Systems 85-year-old female with past medical history of chronic diastolic heart failure, HFpEF 65%, a flutter with ana status post pacemaker on 06/18/2025, hypertension, severe aortic stenosis status post TAVR, gout, COPD, mitral stenosis, GERD, CKD stage 4 presented to the emergency department with a chief complaint of cough for 5 days which was associated with mucus plugs that were brown in color for the past day. Patient states that she uses 4 L of oxygen at home and has been hearing herself wheeze and is short of breath in the past few days. She was discharged from [facility] on 07/05/2025 and was treated for pneumonia and pacemaker was placed on 06/18/2025. She is currently on Eliquis. She denies any fever, chills, nausea, vomiting, diarrhea, dizziness, hematemesis, blurred vision. She is currently on 2 L of oxygen with saturation of 93 and chest x-ray shows pulmonary vascular congestion. past medical history: As stated in [place] past surgical history: Pacemaker Family history: Reviewed, noncontributory to illness Social history: Nonsmoker, denies drinking alcohol or taking any other drugs allergies: None code: Full code 08/10/2025: Today the patient reports feeling better but still has bilateral wheezing. Reports show she is COVID positive. Patient reports she takes melatonin 10 mg for insomnia which we began today. We are continuing her IV antibiotics, prednisolone and med neub. possibly starting Jardiance from tomorrow. 08/11/2025: Today patient was seen and examined by me at the bedside. Patient reports feeling slightly better than yesterday. We will be continuing her antibiotics and med nebulizations. Gabapentin is given twice a day for her pins and needle sensation in the feet. 08/12/2025: today the patient reports feeling better. wheezes have improved. no active new complaints. possible d/c tommorow back home with home health services Objective vital signs Vital Sign Date Time Temp Pulse Resp B/P (MAP) Pulse Ox O2 Delivery O2 Flow Rate FiO2 08/12/25 10:59 60 140/59 08/12/25 09:00 97.7 19 98 97.7 08/11/25 20:00 Nasal Cannula* 2 28 Total Intake and Output 08/11/25 08/11/25 08/12/25 15:00 23:00 07:00 Intake Total 250 ml 550 ml Output Total 1200 ml 750 ml Balance -950 ml -200 ml medications Current Medications Medications Dose Ordered Sig/Payam Route Start Time Stop Time Status Last Admin Dose Admin Piperacillin Sod/ Tazobactam Sod 100 ml @ 25 mls/hr Q8HR IV 08/10/25 06:00 08/12/25 05:45 25 MLS/HR Azithromycin 250 ml @ 125 mls/hr DAILY IV 08/10/25 10:00 08/12/25 10:59 125 MLS/HR Prednisone 40 mg DAILY PO 08/10/25 10:00 08/12/25 10:55 40 MG Furosemide 80 mg DAILY IV 08/09/25 19:45 08/12/25 10:59 80 MG Enoxaparin Sodium 100 mg DAILY SC 08/10/25 10:00 08/12/25 10:59 100 MG Pantoprazole Sodium 40 mg DAILY@0600 PO 08/10/25 06:00 08/12/25 05:45 40 MG Atorvastatin Calcium 40 mg HS PO 08/09/25 22:00 08/11/25 21:24 40 MG Allopurinol 100 mg DAILY PO 08/11/25 10:00 08/12/25 10:56 100 MG Melatonin 10 mg HS PO 08/10/25 22:00 08/11/25 21:24 10 MG Carvedilol 3.125 mg BID PO 08/10/25 22:00 08/12/25 10:59 3.125 MG Gabapentin 100 mg TID PO 08/10/25 22:00 08/12/25 05:45 100 MG Examination Pt is lying on bed General Appearance: Alert, Oriented X3, Cooperative, Not in acute distress HEENT: Atraumatic, Mucous membranes moist/pink, on 2l of o2 NC Respiratory: Clear to auscultation, Normal air movement, mild bilateral wheezing Cardiovascular: Regular rate, Normal S1, Normal S2, No murmurs Abdominal: Active bowel sounds, Soft, no distention, no tenderness Extremities: No edema, Normal pulses, +1 pitting edema in bilateral legs Skin: No Significant rash, except past surgical scars Neuro: Normal speech, sensorimotor deficits none Psych/Mental Status: Mental status NL, Mood NL Nurse was there as idea man during exam laboratory and microbiology Laboratory Tests 08/12/25 05:01 Test 08/12/25 05:01 Range/Units Serum Glucose 104 74-106 mg/dL Microbiology Date/Time Source Procedure Growth Status 08/10/25 06:42 Nose MRSA Screen - Final Complete Labs and/or images reviewed: Labs reviewed by me, Image(s) reviewed by me Problem List/Assessment/Plan Problem List/Assessment/Plan * Acute Hypoxic respiratory failure due to acute exacerbation of COPD versus CHF versus pneumonia * acute exacerbation of COPD * Questionable pneumonia, Gram-positive, Gram-negative. - Med neb ipratropium 0.5 mg q.4 PRN - Med neb albuterol 2.5 mg q.4 PRN - prednisolone 40 mg p.o. daily scheduled - Zosyn 3.375 IV Q8 scheduled - Azithromycin 500 mg IV daily scheduled - Respiratory culture - Influenza neg, COVID test- POSITIVE - MRSA screen - Protonix 40 mg p.o. daily - * Acute on chronic diastolic heart failure, HFpEF 65 % * Hypertension * NSTEMI type 2 * Severe aortic stenosis, s/p TAVR. * Severe Mitral stenosis - status post pacemaker 06/18/2025 - last echo done on 07/01/25 - telemetry - EKG - atorvastatin 40 mg p.o. HS - Furosemide 80 mg IV daily scheduled - Enoxaparin sodium 100 mg subcutaneous b.i.d. - strict input-output measurement - BNP 390.37 - Troponin I 36>34>29 * Acute on chronic renal failure stage 4, likely cardiorenal * Anemia of chronic disease - GFR 21 - creatinine 2.22, BUN 40 - monitor BMP * Morbid obesity - patient counseled regarding weight loss, exercise * Gout - continue home medication allopurinol 100 mg GI prophylaxis: Protonix 40 mg p.o. daily DVT prophylaxis: Lovenox 100 mg subcutaneous b.i.d. Diet: cardiac Goals of care discussed with the patient for more than 27 minutes: Full code status Case discussed with Dr. Justice, and patient Plan discussed with: Patient Dietary Evaluation Review Comments: 1) Continue current plan of care 2) Monitor PO intake, lab values, weight trend, and I/O Expected Outcomes/Goals: Lab values to improve Fu 3-5 days Date of Service: Aug 12, 2025 Billing Provider: FAIZAN JUSTICE MD Common Visit Codes: [id number] INP/OBS CARE(HIGH) LORI LANG RESIDENT Aug 12, 2025 12:21 FAIZAN JUSTICE MD Aug 13, 2025 19:47
--- NOTE | 2025-08-12 15:58 | MEDREC ---
[facility] ASP Intervention Section I [facility] Intervention: Review courses of therapy (QTc 549, recommend to switch azithromycin to doxycycline) JOSE CRUZ PYLE PHARMACIST Aug 12, 2025 15:58
[2025-08-12] MEDS: AMOXICILLIN/CLAVULAN 500 MG TAB PO SCH (18:47)
[2025-08-12] MEDS: APIXABAN 2.5 MG TAB PO SCH (21:18)
[2025-08-12] MEDS: DOXYCYCLINE 100 MG TAB/CAP PO SCH (21:18)
[2025-08-13 01:00] VITALS: BP 151/69; PULSE 60; RESP 17; TEMP 97.3; O2SAT 99
[2025-08-13 05:00] VITALS: BP 160/57; PULSE 60; RESP 17; TEMP 97.3; O2SAT 98
[2025-08-13 05:53] LABS: Chloride 98 mmol/L (98-107); Potassium 3.8 mmol/L (3.5-5.1); Sodium 140 mmol/L (136-145)
[2025-08-13 05:54] LABS: Anion Gap 12 (5-15); Carbon Dioxide 30 mmol/L (20-31)
[2025-08-13 05:55] LABS: Calcium 9.1 mg/dL (8.7-10.4)
[2025-08-13 06:00] LABS: BUN/Creatinine Ratio 16.9 (10.0-20.0)
[2025-08-13 06:08] LABS: Blood Urea Nitrogen 45 mg/dL (9-23); Glucose 114 mg/dL (74-106)
[2025-08-13 06:19] LABS: Hematocrit 30.0 % (36.0-46.0); Hemoglobin 9.9 g/dL (12.2-16.2); Mean Corpuscular Hemoglobin 30.1 pg (28.0-32.0); Mean Corpuscular Volume 91.6 fL (80.0-100.0); Nucleated Red Blood Cells % 0.1 %
[2025-08-13 09:00] VITALS: BP 163/58; PULSE 59; RESP 18; TEMP 97.7; O2SAT 99
[2025-08-13] MEDS: FUROSEMIDE 40 MG TAB PO SCH (09:35)
--- NOTE | 2025-08-13 11:26 | DVH ---
CHEST RADIOGRAPH Indication: sob Technique: Single frontal view of the chest was obtained Comparison: XY CHEST PORTABLE on DOS: 08/10/25, XY CHEST PORTABLE on DOS: 08/09/25, XY CHEST PORTABLE o n DOS: 06/30/25 FINDINGS: Lines and Tubes: Dual-chamber pacemaker in place unchanged from prior study. Lungs: No focal consolidation. Pleura: No effusion. No pneumothorax. Cardiomediastinal contours: Unremarkable Bones: No acute osseous abnormality. IMPRESSION: 1. No significant change 08/10/2025. HS:Y
[2025-08-13 13:00] VITALS: BP 115/60; PULSE 60; RESP 18; TEMP 97.8; O2SAT 99
--- NOTE | 2025-08-13 13:24 | DVHPNRES ---
Progress Note Date Seen: Aug 13, 2025 Resident Creating Document: LORI LANG RESIDENT Has the PT tested + for MRSA If YES, has PT been informed?: Yes Medical Necessity Reason Pt with a Central, PICC or Fol: Yes The following are medically ne: [place] Catheter Subjective Review of Systems 85-year-old female with past medical history of chronic diastolic heart failure, HFpEF 65%, a flutter with ana status post pacemaker on 06/18/2025, hypertension, severe aortic stenosis status post TAVR, gout, COPD, mitral stenosis, GERD, CKD stage 4 presented to the emergency department with a chief complaint of cough for 5 days which was associated with mucus plugs that were brown in color for the past day. Patient states that she uses 4 L of oxygen at home and has been hearing herself wheeze and is short of breath in the past few days. She was discharged from [facility] on 07/05/2025 and was treated for pneumonia and pacemaker was placed on 06/18/2025. She is currently on Eliquis. She denies any fever, chills, nausea, vomiting, diarrhea, dizziness, hematemesis, blurred vision. She is currently on 2 L of oxygen with saturation of 93 and chest x-ray shows pulmonary vascular congestion. past medical history: As stated in [place] past surgical history: Pacemaker Family history: Reviewed, noncontributory to illness Social history: Nonsmoker, denies drinking alcohol or taking any other drugs allergies: None code: Full code 08/10/2025: Today the patient reports feeling better but still has bilateral wheezing. Reports show she is COVID positive. Patient reports she takes melatonin 10 mg for insomnia which we began today. We are continuing her IV antibiotics, prednisolone and med neub. possibly starting Jardiance from tomorrow. 08/11/2025: Today patient was seen and examined by me at the bedside. Patient reports feeling slightly better than yesterday. We will be continuing her antibiotics and med nebulizations. Gabapentin is given twice a day for her pins and needle sensation in the feet. 08/12/2025: today the patient reports feeling better. wheezes have improved. no active new complaints. possible d/c tommorow back home with home health services 08/13/2025: Patient reports feeling better but slightly drowsy. Patient is creatinine levels slowly up trending. Today creatinine was 2.67. Repeat chest x-ray shoed No significant change 08/10/2025. Today the patient had shaking movement of the hands and feet. On distraction however it stopped. We asked her to hold a glass- she had good rug designer, was able to hold it. Objective vital signs Vital Sign Date Time Temp Pulse Resp B/P (MAP) Pulse Ox O2 Delivery O2 Flow Rate FiO2 08/13/25 10:00 Nasal Cannula* 2 28 08/13/25 09:35 163/58 08/13/25 09:35 59 08/13/25 09:00 97.7 18 99 97.7 Total Intake and Output 08/12/25 08/12/25 08/13/25 15:00 23:00 07:00 Intake Total 350 ml 580 ml 700 ml Output Total 540 ml 1150 ml Balance 350 ml 40 ml -450 ml medications Current Medications Medications Dose Ordered Sig/Payam Route Start Time Stop Time Status Last Admin Dose Admin Prednisone 40 mg DAILY PO 08/10/25 10:00 08/13/25 09:35 40 MG Pantoprazole Sodium 40 mg DAILY@0600 PO 08/10/25 06:00 08/13/25 04:59 40 MG Atorvastatin Calcium 40 mg HS PO 08/09/25 22:00 08/12/25 21:18 40 MG Allopurinol 100 mg DAILY PO 08/11/25 10:00 08/13/25 09:36 100 MG Melatonin 10 mg HS PO 08/10/25 22:00 08/12/25 21:18 10 MG Carvedilol 3.125 mg BID PO 08/10/25 22:00 08/13/25 09:35 3.125 MG Gabapentin 100 mg TID PO 08/10/25 22:00 08/13/25 04:59 100 MG Furosemide 40 mg DAILY PO 08/13/25 10:00 08/13/25 09:35 40 MG Amoxicillin/ Clavulanate Potassium 500 mg Q12H PO 08/12/25 17:00 08/13/25 04:59 500 MG Doxycycline Monohydrate 100 mg Q12HR PO 08/12/25 22:00 08/13/25 09:36 100 MG Apixaban 2.5 mg BID PO 08/12/25 22:00 08/13/25 09:35 2.5 MG Examination Pt is lying on bed General Appearance: Alert, Oriented X3, Cooperative, Not in acute distress HEENT: Atraumatic, Mucous membranes moist/pink, on 2l of o2 NC Respiratory: Clear to auscultation, Normal air movement, mild bilateral wheezing Cardiovascular: Regular rate, Normal S1, Normal S2, No murmurs Abdominal: Active bowel sounds, Soft, no distention, no tenderness Extremities: No edema, Normal pulses, +1 pitting edema in bilateral legs Skin: No Significant rash, except past surgical scars Neuro: Normal speech, sensorimotor deficits none Psych/Mental Status: Mental status NL, Mood NL Nurse was there as plier worker during exam laboratory and microbiology Laboratory Tests 08/13/25 04:46 Test 08/13/25 04:46 Range/Units Serum Glucose 114 H 74-106 mg/dL Microbiology Date/Time Source Procedure Growth Status 08/10/25 06:42 Nose MRSA Screen - Final Complete Labs and/or images reviewed: Labs reviewed by me, Image(s) reviewed by me Problem List/Assessment/Plan Problem List/Assessment/Plan * Acute Hypoxic respiratory failure due to acute exacerbation of COPD versus CHF versus pneumonia * acute exacerbation of COPD * Questionable pneumonia, Gram-positive, Gram-negative. - Med neb ipratropium 0.5 mg q.4 PRN - Med neb albuterol 2.5 mg q.4 PRN - prednisolone 40 mg p.o. daily scheduled - Zosyn 3.375 IV Q8 scheduled - Azithromycin 500 mg IV daily scheduled - Respiratory culture - Influenza neg, COVID test- POSITIVE - MRSA screen - Protonix 40 mg p.o. daily - repeat chest x-ray: No significant change 08/10/2025. * Acute on chronic diastolic heart failure, HFpEF 65 % * Hypertension * NSTEMI type 2 * Severe aortic stenosis, s/p TAVR. * Severe Mitral stenosis - status post pacemaker 06/18/2025 - last echo done on 07/01/25 - telemetry - EKG - atorvastatin 40 mg p.o. HS - Furosemide 80 mg IV daily scheduled - Enoxaparin sodium 100 mg subcutaneous b.i.d. - strict input-output measurement - BNP 390.37 - Troponin I 36>34>29 * Acute on chronic renal failure stage 4, likely cardiorenal * Anemia of chronic disease - GFR 21 - creatinine 2.22, BUN 40 - monitor BMP * Morbid obesity - patient counseled regarding weight loss, exercise * Gout - continue home medication allopurinol 100 mg GI prophylaxis: Protonix 40 mg p.o. daily DVT prophylaxis: Lovenox 100 mg subcutaneous b.i.d. Diet: cardiac Goals of care discussed with the patient for more than 27 minutes: Full code status Case discussed with Dr. Justice, and patient Plan discussed with: Patient, Other (rn) Dietary Evaluation Review Comments: 1) Continue current plan of care 2) Monitor PO intake, lab values, weight trend, and I/O Expected Outcomes/Goals: Lab values to improve Fu 3-5 days Date of Service: Aug 13, 2025 Billing Provider: FAIZAN JUSTICE MD Common Visit Codes: [id number] INP/OBS CARE(HIGH) LORI LANG RESIDENT Aug 13, 2025 13:24 FAIZAN JUSTICE MD Aug 13, 2025 20:04
[2025-08-13 15:16] LABS: Potassium 4.5 mmol/L (3.5-5.1); Sodium 139 mmol/L (136-145)
[2025-08-13 15:17] LABS: Anion Gap 10 (5-15); Carbon Dioxide 31 mmol/L (20-31)
[2025-08-13 15:18] LABS: Calcium 9.3 mg/dL (8.7-10.4); Chloride 98 mmol/L (98-107)
[2025-08-13 15:23] LABS: BUN/Creatinine Ratio 18.4 (10.0-20.0); Magnesium 2.2 mg/dL (1.6-2.6)
[2025-08-13 15:24] LABS: Blood Urea Nitrogen 48 mg/dL (9-23); Glucose 125 mg/dL (74-106)
[2025-08-13 16:23] LABS: Uric Acid 6.1 mg/dL (3.1-7.8)
[2025-08-13 17:00] VITALS: BP 149/74; PULSE 59; RESP 18; TEMP 98.3; O2SAT 98
[2025-08-13] MEDS: SODIUM CHLORIDE 0.9% 250 ML IV ONE (18:14)
[2025-08-13 21:00] VITALS: BP 148/80; PULSE 70; RESP 17; TEMP 97.3; O2SAT 97
[2025-08-14 01:00] VITALS: BP 153/60; PULSE 63; RESP 20; TEMP 97.3; O2SAT 98
[2025-08-14 05:00] VITALS: BP 144/57; PULSE 60; RESP 20; TEMP 97.3; O2SAT 100
[2025-08-14 07:04] LABS: Chloride 100 mmol/L (98-107); Potassium 4.5 mmol/L (3.5-5.1); Sodium 140 mmol/L (136-145)
[2025-08-14 07:05] LABS: Anion Gap 14 (5-15); Calcium 8.8 mg/dL (8.7-10.4); Carbon Dioxide 26 mmol/L (20-31)
[2025-08-14 07:11] LABS: BUN/Creatinine Ratio 24.7 (10.0-20.0); Magnesium 2.5 mg/dL (1.6-2.6)
[2025-08-14 07:12] LABS: Blood Urea Nitrogen 61 mg/dL (9-23); Glucose 125 mg/dL (74-106)
[2025-08-14 09:00] VITALS: BP 153/64; PULSE 60; RESP 16; TEMP 97.9; O2SAT 100
--- NOTE | 2025-08-14 09:54 | DVHINCON2 ---
Date of service: Aug 14, [address] Young Reason for Consultation DESTINEE History of Present Illness 85 year old female known to renal service for ckd 4, diastolic HF, CAD, heart block s/p PPM and COPD p/w SOB. WAs admitted for decompensated HF. Inital diuresis improved symptoms but nephrology called for rising cr Past Medical History cad, copd, chf, htn, dm2 Past Surgical History PPM Allergies: Coded Allergies: Acetaminophen (Verified Allergy, Unknown, 08/09/25) Hydrocodone (Verified Allergy, Unknown, 08/09/25) Tramadol (Verified Adverse Reaction, Unknown, 06/18/25) Home Meds Reported Medications Atorvastatin Calcium (Lipitor) 40 Mg Tab, 1 TAB PO DAILY for 31 Days, #31 08/10/25 Sildenafil Citrate (Sildenafil Citrate) 20 Mg Tab, 1 TAB PO TID for 31 Days, #62 08/10/25 Amiodarone HCl (Amiodarone HCl) 200 Mg Tab, 1 TAB PO BID for 31 Days, #62 08/10/25 Carvedilol (Carvedilol) 3.125 Mg Tab, 1 TAB PO BID for 31 Days, #62 08/10/25 Colchicine (Colchicine) 0.6 Mg Cap, 1 CAP PO DAILY for 14 Days, #14 08/10/25 Montelukast Sodium (MONTELUKAST SODIUM) 10 Mg Tab, 1 TAB PO DAILY for 30 Days, #30 06/14/25 Furosemide (Furosemide) 40 Mg Tab, 1 TAB PO DAILY for 30 Days, #30 06/14/25 Allopurinol (Allopurinol) 100 Mg Tab, 1 TAB PO DAILY for 30 Days, #30 06/12/25 Pantoprazole Sodium Sesquihydr (Protonix) 40 Mg Tab, 1 TAB PO QAM for GERD 06/20/23 Apixaban Base (ELIQUIS) 2.5 Mg Tab, 1 TAB PO BID for CAD 06/20/23 Albuterol Sulfate (Albuterol Sulfate Hfa) 108 Mcg/Act Aer, 2 PUFF IN QID PRN for SHORTNESS OF BREATH 06/20/23 Discontinued Reported Medications Aspirin (Aspirin) 81 Mg Tab, 2 TAB PO QAM for CAD 06/20/23 Current Medications Current Medications Medications (Trade) Dose Ordered Sig/Payam Route PRN Reason Start Time Stop Time Status Last Admin Furosemide (Lasix Tablet) 40 mg DAILY PO 10/3/25 10:00 08/13/25 09:35 Buspirone HCl (Buspar Tablet) 15 mg Q12HR PO 08/13/25 22:00 08/13/25 21:27 Family History: Hypertension G8 MOTHER G8 FATHER 19 CHILD Review of Systems SOB H&P Exam Vital Signs/I&O Vital Sign Date Time Temp Pulse Resp B/P (MAP) Pulse Ox O2 Delivery O2 Flow Rate FiO2 08/14/25 07:40 Nasal Cannula* 2 28 08/14/25 05:00 97.3 60 20 144/57 (86) 100 97.3 Intake and Output 08/13/25 08/14/25 19:00 07:00 Intake Total 522 ml 450 ml Output Total 350 ml 1000 ml Balance 172 ml -550 ml Intake Oral 522 ml 450 ml Output Urine Total 350 ml 1000 ml # Bowel Movements 1 3 Physical Exam obese elderly female NAD mild rales 1+ ankle edema soft abd Labs/Diagnostic Data Labs/Diagnostic Data Laboratory Tests Test 08/14/25 04:49 08/13/25 14:52 08/13/25 04:46 08/12/25 05:01 Range/Units Sodium Level 140 139 140 142 136-145 mmol/L Potassium Level 4.5 4.5 3.8 3.9 3.5-5.1 mmol/L Chloride Level 100 98 98 99 98-107 mmol/L Carbon Dioxide Level 26 31 30 32 H 20-31 mmol/L Anion Gap 14 10 12 11 5-15 Blood Urea Nitrogen 61 #H 48 H 45 H 42 H 9-23 mg/dL Creatinine 2.47 H 2.61 H 2.67 H 2.58 H 0.550-1.02 mg/dL Glomerular Filtration Rate Calc 19 18 17 18 >90 mL/min BUN/Creatinine Ratio 24.7 H 18.4 16.9 16.3 10.0-20.0 Serum Glucose 125 H 125 H 114 H 104 74-106 mg/dL Calcium Level 8.8 9.3 9.1 8.9 8.7-10.4 mg/dL Magnesium Level 2.5 2.2 1.6-2.6 mg/dL Uric Acid 6.1 3.1-7.8 mg/dL Phosphorus Level 3.4 2.4-5.1 mg/dL White Blood Count 7.6 7.5 4.4-10.8 10^3/uL Red Blood Count 3.28 L 3.04 L 4.0-5.20 10^6/uL Hemoglobin 9.9 L 9.4 L 12.2-16.2 g/dL Hematocrit 30.0 L 27.8 L 36.0-46.0 % Mean Corpuscular Volume 91.6 91.5 80.0-100.0 fL Mean Corpuscular Hemoglobin 30.1 30.8 28.0-32.0 pg Mean Corpuscular Hemoglobin Concent 32.9 33.7 32.0-36.0 g/dL Red Cell Distribution Width 17.0 H 16.8 H 11.8-14.3 % Platelet Count 270 240 140-450 10^3/uL Mean Platelet Volume 10.4 9.9 6.9-10.8 fL Neutrophils (%) (Auto) 81.4 H 80.2 H 37.0-80.0 % Lymphocytes (%) (Auto) 7.7 L 7.4 L 10.0-50.0 % Monocytes (%) (Auto) 9.6 12.1 H 0.0-12.0 % Eosinophils (%) (Auto) 0.6 0.0 0.0-7.0 % Basophils (%) (Auto) 0.7 0.3 0.0-2.0 % Neutrophils # (Auto) 6.2 6.0 1.6-8.6 10 ^3/uL Lymphocytes # (Auto) 0.6 0.5 0.4-5.4 10 ^3/uL Monocytes # (Auto) 0.7 0.9 0-1.3 10 ^3/uL Eosinophils # (Auto) 0 0 0-0.8 10 ^3/uL Basophils # (Auto) 0.1 0 0-0.2 10 ^3/uL Nucleated Red Blood Cells 0.1 0.0 % Test 08/11/25 06:37 08/10/25 06:53 08/09/25 19:55 08/09/25 19:50 Range/Units White Blood Count 6.1 # 2.3 L 4.4-10.8 10^3/uL Red Blood Count 3.02 L 3.08 L 4.0-5.20 10^6/uL Hemoglobin 9.2 L 9.6 L 12.2-16.2 g/dL Hematocrit 27.5 L 28.4 L 36.0-46.0 % Mean Corpuscular Volume 91.2 92.2 80.0-100.0 fL Mean Corpuscular Hemoglobin 30.4 31.1 28.0-32.0 pg Mean Corpuscular Hemoglobin Concent 33.4 33.7 32.0-36.0 g/dL Red Cell Distribution Width 16.7 H 17.1 H 11.8-14.3 % Platelet Count 236 254 140-450 10^3/uL Mean Platelet Volume 9.9 10.4 6.9-10.8 fL Neutrophils (%) (Auto) 77.8 78.6 37.0-80.0 % Lymphocytes (%) (Auto) 8.2 L 11.0 10.0-50.0 % Monocytes (%) (Auto) 13.8 H 8.1 0.0-12.0 % Eosinophils (%) (Auto) 0.0 2.0 0.0-7.0 % Basophils (%) (Auto) 0.2 0.3 0.0-2.0 % Neutrophils # (Auto) 4.8 1.8 1.6-8.6 10 ^3/uL Lymphocytes # (Auto) 0.5 0.3 L 0.4-5.4 10 ^3/uL Monocytes # (Auto) 0.8 0.2 0-1.3 10 ^3/uL Eosinophils # (Auto) 0 0 0-0.8 10 ^3/uL Basophils # (Auto) 0 0 0-0.2 10 ^3/uL Nucleated Red Blood Cells 0.2 0.1 % Sodium Level 139 140 136-145 mmol/L Potassium Level 3.6 4.0 3.5-5.1 mmol/L Chloride Level 98 100 98-107 mmol/L Carbon Dioxide Level 29 28 20-31 mmol/L Anion Gap 12 12 5-15 Blood Urea Nitrogen 37 H 30 #H 9-23 mg/dL Creatinine 2.34 H 2.13 H 0.550-1.02 mg/dL Glomerular Filtration Rate Calc 20 23 >90 mL/min BUN/Creatinine Ratio 15.8 14.1 10.0-20.0 Serum Glucose 131 H 130 H 74-106 mg/dL Calcium Level 8.8 9.2 8.7-10.4 mg/dL Magnesium Level 2.3 1.6-2.6 mg/dL D-Dimer, Quantitative 0.51 H 0.0-0.49 mg/L FEU Troponin I High Sensitivity 31 </=34 ng/L Influenza Type A Antigen Negative Negative Influenza Type B Antigen Negative Negative SARS-CoV-2 Antigen (Rapid) Positive NEGATIVE Test 08/09/25 17:10 08/09/25 16:59 08/09/25 14:59 08/09/25 13:46 Range/Units Urine Color Colorless Yellow Urine Clarity Clear Clear Urine pH 5.5 5.0-9.0 Urine Specific [place] 1.006 1.001-1.035 Urine Protein Negative Negative Urine Ketones Negative Negative Urine Blood Negative Negative /uL Urine Nitrite Negative Negative Urine Bilirubin Negative Negative Urine Urobilinogen Normal Negative mg/dL Urine Leukocyte Esterase Negative Negative /uL Urine RBC None seen 0 - 4 /hpf Urine Microscopic WBC < 1 0-5 /HPF Urine Squamous Epithelial Cells None seen <5 /hpf Urine Bacteria Many H None Seen /hpf Urine Glucose Normal Normal mg/dL Troponin I High Sensitivity 29 34 </=34 ng/L B-Type Natriuretic Peptide 390.37 0-100 pg/mL Test 08/09/25 13:43 Range/Units White Blood Count 4.7 4.4-10.8 10^3/uL Red Blood Count 2.80 L 4.0-5.20 10^6/uL Hemoglobin 8.5 L 12.2-16.2 g/dL Hematocrit 26.2 L 36.0-46.0 % Mean Corpuscular Volume 93.5 80.0-100.0 fL Mean Corpuscular Hemoglobin 30.4 28.0-32.0 pg Mean Corpuscular Hemoglobin Concent 32.5 32.0-36.0 g/dL Red Cell Distribution Width 17.2 H 11.8-14.3 % Platelet Count 201 140-450 10^3/uL Mean Platelet Volume 9.6 6.9-10.8 fL Neutrophils (%) (Auto) 37.0-80.0 % Lymphocytes (%) (Auto) 10.0-50.0 % Monocytes (%) (Auto) 0.0-12.0 % Basophils (%) (Auto) 0.0-2.0 % Neutrophils # (Auto) 1.6-8.6 10 ^3/uL Lymphocytes # (Auto) 0.4-5.4 10 ^3/uL Monocytes # (Auto) 0-1.3 10 ^3/uL Differential Total Cells Counted 100.0 100 Neutrophils % (Manual) 54 37.0-80.0 Band Neutrophils % (Manual) 0 Lymphocytes % (Manual) 19 10.0-50.0 Monocytes % (Manual) 20 H 0-12 Eosinophils % (Manual) 7 0-7 Basophils % (Manual) 0 0.0-2.0 Metamyelocytes % (manual) 0 Myelocytes % (Manual) 0 Promyelocytes % (Manual) 0 Blast Cells % (Manual) 0 Reactive Lymphocytes 0 Platelet Estimate Adequate Sodium Level 140 136-145 mmol/L Potassium Level 4.8 3.5-5.1 mmol/L Chloride Level 103 98-107 mmol/L Carbon Dioxide Level 22 20-31 mmol/L Anion Gap 15 5-15 Blood Urea Nitrogen 42 H 9-23 mg/dL Creatinine 2.20 H 0.550-1.02 mg/dL Glomerular Filtration Rate Calc 22 >90 mL/min BUN/Creatinine Ratio 19.1 10.0-20.0 Serum Glucose 96 74-106 mg/dL Calcium Level 8.3 L 8.7-10.4 mg/dL Magnesium Level 2.1 1.6-2.6 mg/dL Total Bilirubin 0.5 0.2-1.0 mg/dL Aspartate Amino Transferase (AST) 57 H 13-40 U/L Alanine Aminotransferase (ALT) 43 H 7-40 U/L Alkaline Phosphatase 57 46-116 U/L Troponin I High Sensitivity 36 *H </=34 ng/L Total Protein 6.2 5.7-8.2 g/dL Albumin 3.9 3.2-4.8 g/dL Thyroid Stimulating Hormone (TSH) 4.99 H 0.55-4.78 uIU/mL Microbiology Date/Time Source Procedure Growth Status 08/10/25 06:42 Nose MRSA Screen - Final Complete Assessment Acute kidney injury suspect in the setting of cardiorenal syndrome and hemodynamics Chronic kidney disease stage 3 Dr. Oh slaughter Pneumonia Diastolic heart failure, pulmonary hypertension, Severe 2-1 heart block History of TAVR Acute kidney injury hemodynamic and cardioenal syndrome from decompensated HF - renal function improving on lasix - fluid restriction - low sodium Diastolic HF decompensated moderate pulm hypertension - diuretics as above - convert to lasxi 80mg po daily at DC heart block s/p PPM 06/2025 Ckd 4 - Dr. Casiano clinic return to clinic for volume optimization and advanced CKD COPD bronchdilators as per primary team care time 60mins Plan discussed with: Patient GREG HA MD Aug 14, 2025 09:54
[2025-08-14] MEDS: FUROSEMIDE 40 MG TAB PO SCH (10:23)
[2025-08-14 10:36] LABS: Hematocrit 29.5 % (36.0-46.0); Hemoglobin 9.7 g/dL (12.2-16.2); Mean Corpuscular Hemoglobin 30.0 pg (28.0-32.0); Mean Corpuscular Volume 91.0 fL (80.0-100.0); Nucleated Red Blood Cells % 0.0 %
[2025-08-14 13:00] VITALS: BP 103/60; PULSE 60; RESP 16; TEMP 97.9; O2SAT 95
--- NOTE | 2025-08-14 14:51 | DVHPNRES ---
Progress Note Date Seen: Aug 14, 2025 Resident Creating Document: SIENNA MEZA RESIDENT Has the PT tested + for MRSA If YES, has PT been informed?: No Medical Necessity Reason Pt with a Central, PICC or Fol: Yes The following are medically ne: [place] Catheter Subjective Review of Systems Patient was evaluated today at bedside. She is alert, oriented, and breathing comfortably on 2 L NC (previously 4 L home O?). Reports improvement in dyspnea and wheezing; denies chest pain, fever, chills, nausea, vomiting, or diarrhea.?She had four bowel movements today, tolerating oral diet well. Reports mild fatigue and generalized weakness during PT but not able to ambulate . Tremors that were present two days ago have significantly improved.Sleep has improved with melatonin. No new complaints REVIEW OF SYSTEMS * General: Improving fatigue; afebrile * Respiratory: Mild wheeze; improving dyspnea on 2 L NC * Cardiac: No chest pain, no palpitations * GI: Tolerating oral diet; 4 BMs today; no N/V * Neuro: Tremor improving; alert and oriented * : Voiding adequately * Extremities: No new edema or pain Objective vital signs Vital Sign Date Time Temp Pulse Resp B/P (MAP) Pulse Ox O2 Delivery O2 Flow Rate FiO2 08/14/25 13:00 97.9 60 16 103/60 (74) 95 97.9 08/14/25 10:00 Nasal Cannula* 2 28 Total Intake and Output 08/13/25 08/13/25 08/14/25 15:00 23:00 07:00 Intake Total 522 ml 450 ml Output Total 350 ml 1000 ml Balance 172 ml -550 ml medications Current Medications Medications Dose Ordered Sig/Payam Route Start Time Stop Time Status Last Admin Dose Admin Prednisone 40 mg DAILY PO 08/10/25 10:08/14/25 10:20 40 MG Pantoprazole Sodium 40 mg DAILY@0600 PO 08/10/25 06:00 08/14/25 05:28 40 MG Atorvastatin Calcium 40 mg HS PO 08/09/25 22:00 08/13/25 21:27 40 MG Allopurinol 100 mg DAILY PO 08/11/25 10:00 08/14/25 10:24 100 MG Melatonin 10 mg HS PO 08/10/25 22:00 08/13/25 21:26 10 MG Carvedilol 3.125 mg BID PO 08/10/25 22:00 08/14/25 10:21 3.125 MG Gabapentin 100 mg TID PO 08/10/25 22:00 08/14/25 12:41 100 MG Amoxicillin/ Clavulanate Potassium 500 mg Q12H PO 08/12/25 17:00 08/13/25 17:21 500 MG Doxycycline Monohydrate 100 mg Q12HR PO 08/12/25 22:00 08/14/25 10:23 100 MG Apixaban 2.5 mg BID PO 08/12/25 22:00 08/14/25 10:22 2.5 MG Buspirone HCl 15 mg Q12HR PO 08/13/25 22:00 08/14/25 10:17 15 MG Furosemide 80 mg DAILY PO 08/14/25 10:00 08/14/25 10:23 80 MG Examination General: Elderly female, alert, in no acute distress. HEENT: Normocephalic, no JVD, mucous membranes moist. Lungs: Diminished breath sounds bilaterally with scattered rhonchi and mild wheezing; improving air entry. Cardiac: Regular paced rhythm; no new murmurs; trace peripheral edema. Abdomen: Soft, non-tender, non-distended; bowel sounds active. Neuro: AAOx3, no focal deficit; mild fatigue with PT activity. Skin: Warm, intact. laboratory and microbiology Laboratory Tests 08/14/25 10:25 08/14/25 04:49 Test 08/14/25 04:49 Range/Units Serum Glucose 125 H 74-106 mg/dL Microbiology Date/Time Source Procedure Growth Status 08/10/25 06:42 Nose MRSA Screen - Final Complete Problem List/Assessment/Plan Problem List/Assessment/Plan ASSESSMENT & PLAN 1. Respiratory System Acute Hypoxic Respiratory Failure due to A/C COPD Exacerbation + CHF + Covid viral Pneumonia * COVID-19 positive (08/10); improving respiratory status. * CXR: no new infiltrate; mild vascular congestion. * On 2 L NC with SpO? 93 %. Plan: * Continue prednisolone 40 mg daily ? plan to taper to 20 mg over next 5 days. * Continue PO amoxicillin-clavulanate and doxycycline for broad coverage (Gram atypical). * Inhaled ipratropium and albuterol PRN. * Continue pulmonary toilet, incentive spirometry. * RT to assess need for home oxygen re-qualification prior to discharge. * Outpatient pulmonary follow-up in 12 weeks. 2. Cardiac System Chronic Diastolic HF (HFpEF 65 %), s/p TAVR & Aflutter with Alfredo s/p Pacemaker, HTN.,Type 2 NE * Hemodynamically stable, no volume overload clinically. Plan: * Continue carvedilol 3.125 mg BID and furosemide 80 mg PO daily. * Strict I/O and daily weights. * Monitor BNP and electrolytes. * Continue atorvastatin 40 mg HS. * Resume empagliflozin (Jardiance) 5 mg PO daily starting tomorrow if renal function stable. * Maintain BP goal < 130/80 per AHA HFpEF guidelines. 3. Renal System Acute on CKD Stage IV (Improving Cr 2.44 from 2.61) /VMN * Likely cardiorenal component; responding to oral diuretics. Plan: * Avoid nephrotoxins (NSAIDs, IV contrast). * Continue PO furosemide 80 mg daily. * BMP daily to monitor trend. * Encourage hydration while maintaining euvolemia. * OP follow-up in 2 weeks. 4. Neurologic System Tremor (Improving), Mild Weakness * Likely steroid related or metabolic; no focal deficit.?Plan: Continue gabapentin 100 mg TID for neuropathy; monitor for sedation.?PT/OT evaluation ? recommend front-wheel walker for ambulation support. 5. Infectious Diseases COVID-19 Positive, Resolved Bacterial Component * Afebrile, improving O? requirement, no new leukocytosis.?Plan: Continue current antibiotic course and steroids; droplet precautions as per protocol. 6. Endocrine / Metabolic * Blood glucose stable on steroids; monitor daily. * Consider insulin sliding scale if hyperglycemia > 180 mg/dL. 7. GI / Nutrition * Tolerating diet well. * Continue pantoprazole 40 mg daily (GI prophylaxis). * Cardiac diet with moderate Na restriction and high protein intake. 8. Hematology * Stable anemia of CKD (Hgb 9.7). * Monitor CBC q24h. * Apixaban 2.5 mg BID for atrial flutter (continue). 9. Musculoskeletal / Mobility * Generalized weakness improving.?Plan: Continue PT/OT therapy; arrange home PT on discharge.?Order front-wheel walker for safe ambulation. 10. Psychiatric / Sleep * Anxiety and insomnia controlled with buspirone and melatonin. * Continue current regimen. * Morbid obesity - patient counseled regarding weight loss, exercise * Gout - continue home medication allopurinol 100 mg 11. Prophylaxis and Supportive Care * DVT Prophylaxis: Apixaban (therapeutic). * GI Prophylaxis: Pantoprazole 40 mg PO daily. * Pressure Injury Prevention: Reposition q2h; skin checks daily. * Fall Precautions: PT evaluation, bed alarm, assist for ambulation. * PLAN FOR DISPOSITION * Clinically improving; * Pending PLACEMENT AT sn * Discharge likely tomorrow (08/15/25) TO SNF and close OP follow-up. Case discussed in detail with the attending physician, including the clinical presentation, diagnostic work-up, and comprehensive management plan. The patient was present for the discussion and demonstrated understanding of her condition and the proposed plan. Plan discussed with: Patient, Son My Orders My Orders Orders - SIENNA MEZA RESIDENT Procedure Category Date Status Time Furosemide Tablet PHA 08/14/25 In Process (Lasix Tablet) 10:00 * Tooling Manager CONS 08/14/25 Transmitted Consult * Tooling Manager CONS 08/14/25 Transmitted Consult Pt Request For Service PT 08/14/25 Logged 11:23 Dietary Evaluation Review Comments: 1) Continue current plan of care 2) Monitor PO intake, lab values, weight trend, and I/O Expected Outcomes/Goals: Lab values to improve Fu 3-5 days Date of Service: Aug 14, 2025 Billing Provider: CHRISTIN COVARRUBIAS DO Common Visit Codes: [id number] INP/OBS CARE(HIGH) SIENNA MEZA RESIDENT Aug 14, 2025 14:51 CHRISTIN COVARRUBIAS DO Aug 17, 2025 00:04
[2025-08-14 17:00] VITALS: BP 161/83; PULSE 60; RESP 16; TEMP 97.9; O2SAT 98
[2025-08-14 21:00] VITALS: BP 156/59; PULSE 60; RESP 20; TEMP 97.7; O2SAT 100
[2025-08-15] VITALS (9 sets, daily range): BP systolic 107–184; BP diastolic 62–69; PULSE 60–86; RESP 15–18; TEMP 92.7–98.5; O2SAT 95–100
[2025-08-15 05:42] LABS: Hematocrit 30.4 % (36.0-46.0); Hemoglobin 10.0 g/dL (12.2-16.2); Mean Corpuscular Hemoglobin 30.1 pg (28.0-32.0); Mean Corpuscular Volume 91.5 fL (80.0-100.0); Nucleated Red Blood Cells % 0.0 %
[2025-08-15 05:57] LABS: Chloride 100 mmol/L (98-107); Potassium 4.3 mmol/L (3.5-5.1); Sodium 141 mmol/L (136-145)
[2025-08-15 05:58] LABS: Anion Gap 10 (5-15); Carbon Dioxide 31 mmol/L (20-31)
[2025-08-15 05:59] LABS: Calcium 9.4 mg/dL (8.7-10.4)
[2025-08-15 06:03] LABS: BUN/Creatinine Ratio 19.1 (10.0-20.0)
[2025-08-15 06:04] LABS: Blood Urea Nitrogen 39 mg/dL (9-23); Glucose 117 mg/dL (74-106)
[2025-08-15] MEDS: hydrALAZINE HCL 20 MG/ML VL IV PRN (06:23)
[2025-08-15] MEDS ORDERED: hydrALAZINE HCL 20 MG/ML VL IV ONE (08:45)
[2025-08-15] MEDS ORDERED: ACETAMINOPHEN 325 MG TAB PO ONE (08:45)
--- NOTE | 2025-08-15 11:22 | DVHPNRES ---
Progress Note Date Seen: Aug 15, 2025 Resident Creating Document: LORI LANG RESIDENT Has the PT tested + for MRSA If YES, has PT been informed?: No Medical Necessity Reason Pt with a Central, PICC or Fol: Yes The following are medically ne: [place] Catheter Subjective Review of Systems 85-year-old female with past medical history of chronic diastolic heart failure, HFpEF 65%, a flutter with alfredo status post pacemaker on 06/18/2025, hypertension, severe aortic stenosis status post TAVR, gout, COPD, mitral stenosis, GERD, CKD stage 4 presented to the emergency department with a chief complaint of cough for 5 days which was associated with mucus plugs that were brown in color for the past day. Patient states that she uses 4 L of oxygen at home and has been hearing herself wheeze and is short of breath in the past few days. She was discharged from [facility] on 07/05/2025 and was treated for pneumonia and pacemaker was placed on 06/18/2025. She is currently on Eliquis. She denies any fever, chills, nausea, vomiting, diarrhea, dizziness, hematemesis, blurred vision. She is currently on 2 L of oxygen with saturation of 93 and chest x-ray shows pulmonary vascular congestion. past medical history: As stated in [facility] past surgical history: Pacemaker Family history: Reviewed, noncontributory to illness Social history: Nonsmoker, denies drinking alcohol or taking any other drugs allergies: None code: Full code 08/10/2025: Today the patient reports feeling better but still has bilateral wheezing. Reports show she is COVID positive. Patient reports she takes melatonin 10 mg for insomnia which we began today. We are continuing her IV antibiotics, prednisolone and med neub. possibly starting Jardiance from tomorrow. 08/11/2025: Today patient was seen and examined by me at the bedside. Patient reports feeling slightly better than yesterday. We will be continuing her antibiotics and med nebulizations. Gabapentin is given twice a day for her pins and needle sensation in the feet. 08/12/2025: today the patient reports feeling better. wheezes have improved. no active new complaints. possible d/c tommorow back home with home health services 08/13/2025: Patient reports feeling better but slightly drowsy. Patient is creatinine levels slowly up trending. Today creatinine was 2.67. Repeat chest x-ray shoed No significant change 08/10/2025. Today the patient had shaking movement of the hands and feet. On distraction however it stopped. 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 08/14 Patient was evaluated today at bedside. She is alert, oriented, and breathing comfortably on 2 L NC (previously 4 L home O?). Reports improvement in dyspnea and wheezing; denies chest pain, fever, chills, nausea, vomiting, or diarrhea.?She had four bowel movements today, tolerating oral diet well. Reports mild fatigue and generalized weakness during PT but not able to ambulate . Tremors that were present two days ago have significantly improved.Sleep has improved with melatonin. No new complaints 08/15 Patient was seen and examined by me at the bedside. Patient who reports improved in dyspnea and wheezing but complaints of a headache 04/20 (tylenol given) and overnight her blood pressure was high 184/68mmhg. IV hydralazine 10 was given and her blood pressure came back to 126/ 69mmhg. patient reports that she still feels weak and is not able to walk much. Possible discharge tomorrow go back to [facility]. PT jahal suggested SNF but patient does not want to go back to it. Truck Mechanic Apprentice consulted for home health PT Objective vital signs Vital Sign Date Time Temp Pulse Resp B/P (MAP) Pulse Ox O2 Delivery O2 Flow Rate FiO2 08/15/25 09:18 126/69 08/15/25 09:18 86 08/15/25 09:00 97.9 15 95 97.9 08/14/25 20:00 Nasal Cannula* 2 28 Total Intake and Output 08/14/25 08/14/25 08/15/25 15:00 23:00 07:00 Intake Total 875 ml 1135 ml Output Total 950 ml 2400 ml Balance -75 ml -1265 ml medications Current Medications Medications Dose Ordered Sig/Payam Route Start Time Stop Time Status Last Admin Dose Admin Prednisone 40 mg DAILY PO 08/10/25 10:00 08/15/25 09:17 40 MG Pantoprazole Sodium 40 mg DAILY@0600 PO 08/10/25 06:00 08/15/25 05:47 40 MG Atorvastatin Calcium 40 mg HS PO 08/09/25 22:00 08/14/25 21:38 40 MG Allopurinol 100 mg DAILY PO 08/11/25 10:00 08/15/25 09:18 100 MG Melatonin 10 mg HS PO 08/10/25 22:00 08/14/25 21:37 10 MG Carvedilol 3.125 mg BID PO 08/10/25 22:00 08/15/25 09:18 3.125 MG Gabapentin 100 mg TID PO 08/10/25 22:00 08/15/25 05:47 100 MG Amoxicillin/ Clavulanate Potassium 500 mg Q12H PO 08/12/25 17:00 08/14/25 15:24 500 MG Doxycycline Monohydrate 100 mg Q12HR PO 08/12/25 22:00 08/15/25 09:18 100 MG Apixaban 2.5 mg BID PO 08/12/25 22:00 08/15/25 09:18 2.5 MG Buspirone HCl 15 mg Q12HR PO 08/13/25 22:00 08/15/25 09:19 15 MG Furosemide 80 mg DAILY PO 08/14/25 10:00 08/15/25 09:18 80 MG Hydralazine HCl 10 mg Q6HP PRN IV 08/15/25 06:00 08/15/25 06:23 10 MG Examination General: Elderly female, alert, in no acute distress. HEENT: Normocephalic, no JVD, mucous membranes moist. Lungs: Diminished breath sounds bilaterally with scattered rhonchi and mild wheezing; improving air entry. Cardiac: Regular paced rhythm; no new murmurs; trace peripheral edema. Abdomen: Soft, non-tender, non-distended; bowel sounds active. Neuro: AAOx3, no focal deficit; mild fatigue with PT activity. Skin: Warm, intact. laboratory and microbiology Laboratory Tests 08/15/25 05:03 Test 08/15/25 05:03 Range/Units Serum Glucose 117 H 74-106 mg/dL Microbiology Date/Time Source Procedure Growth Status 08/10/25 06:42 Nose MRSA Screen - Final Complete Labs and/or images reviewed: Labs reviewed by me, Image(s) reviewed by me Problem List/Assessment/Plan Problem List/Assessment/Plan 1. Respiratory System Acute Hypoxic Respiratory Failure due to A/C COPD Exacerbation + CHF + Covid viral Pneumonia * COVID-19 positive (08/10); improving respiratory status. * CXR: no new infiltrate; mild vascular congestion. * On 2 L NC with SpO? 93 %. Plan: * Continue prednisolone 40 mg daily ? plan to taper to 20 mg over next 5 days. * Continue PO amoxicillin-clavulanate and doxycycline for broad coverage (Gram atypical). * Inhaled ipratropium and albuterol PRN. * Continue pulmonary toilet, incentive spirometry. * RT to assess need for home oxygen re-qualification prior to discharge. * Outpatient pulmonary follow-up in 12 weeks. 2. Cardiac System Chronic Diastolic HF (HFpEF 65 %), s/p TAVR & Aflutter with Alfredo s/p Pacemaker, HTN.,Type 2 [place] * Hemodynamically stable, no volume overload clinically. Plan: * Continue carvedilol 3.125 mg BID and furosemide 80 mg PO daily. * Strict I/O and daily weights. * Monitor BNP and electrolytes. * Continue atorvastatin 40 mg HS. * Resume empagliflozin (Jardiance) 5 mg PO daily starting tomorrow if renal function stable. * Maintain BP goal < 130/80 per AHA HFpEF guidelines. 3. Renal System Acute on CKD Stage IV (Improving Cr 2.44 from 2.61) /VMN * Likely cardiorenal component; responding to oral diuretics. Plan: * Avoid nephrotoxins (NSAIDs, IV contrast). * Continue PO furosemide 80 mg daily. * BMP daily to monitor trend. * Encourage hydration while maintaining euvolemia. * OP follow-up in 2 weeks. 4. Neurologic System Tremor (Improving), Mild Weakness * Likely steroid related or metabolic; no focal deficit.?Plan: Continue gabapentin 100 mg TID for neuropathy; monitor for sedation.?PT/OT evaluation ? recommend front-wheel walker for ambulation support. 5. Infectious Diseases COVID-19 Positive, Resolved Bacterial Component * Afebrile, improving O? requirement, no new leukocytosis.?Plan: Continue current antibiotic course and steroids; droplet precautions as per protocol. 6. Endocrine / Metabolic * Blood glucose stable on steroids; monitor daily. * Consider insulin sliding scale if hyperglycemia > 180 mg/dL. 7. GI / Nutrition * Tolerating diet well. * Continue pantoprazole 40 mg daily (GI prophylaxis). * Cardiac diet with moderate Na restriction and high protein intake. 8. Hematology * Stable anemia of CKD (Hgb 9.7). * Monitor CBC q24h. * Apixaban 2.5 mg BID for atrial flutter (continue). 9. Musculoskeletal / Mobility * Generalized weakness improving.?Plan: Continue PT/OT therapy; arrange home PT on discharge.?Order front-wheel walker for safe ambulation. 10. Psychiatric / Sleep * Anxiety and insomnia controlled with buspirone and melatonin. * Continue current regimen. * Morbid obesity - patient counseled regarding weight loss, exercise * Gout - continue home medication allopurinol 100 mg 11. Prophylaxis and Supportive Care * DVT Prophylaxis: Apixaban (therapeutic). * GI Prophylaxis: Pantoprazole 40 mg PO daily. * Pressure Injury Prevention: Reposition q2h; skin checks daily. * Fall Precautions: PT evaluation, bed alarm, assist for ambulation. * PLAN FOR DISPOSITION * Clinically improving; * social service consult for home health PT * possible discharge tomorrow on 08/16/2025 Case discussed in detail with the attending physician, including the clinical presentation, diagnostic work-up, and comprehensive management plan. The patient was present for the discussion and demonstrated understanding of her condition and the proposed plan. Plan discussed with: Dr Valenzuela, Patient, Son Plan discussed with: Patient, Other (rn) My Orders My Orders Orders - LORI LANG RESIDENT Procedure Category Date Status Time Acetaminophen Tablet PHA 08/15/25 Pending (Tylenol Tablet) 08:45 * Truck Mechanic Apprentice CONS 08/15/25 Transmitted Consult Dietary Evaluation Review Comments: 1) Continue current plan of care 2) Monitor PO intake, lab values, weight trend, and I/O Expected Outcomes/Goals: Lab values to improve Fu 3-5 days LORI LANG RESIDENT Aug 15, 2025 11:22
[2025-08-16] VITALS (11 sets, daily range): BP systolic 121–154; BP diastolic 44–67; PULSE 57–89; RESP 15–20; TEMP 97.5–98.3; O2SAT 97–100
[2025-08-16] MEDS ORDERED: SODIUM BICARB 8.4% 50Meq/50ml SYR Vial IV ONE (02:24)
[2025-08-16 07:56] LABS: Hematocrit 30.5 % (36.0-46.0); Hemoglobin 9.8 g/dL (12.2-16.2); Mean Corpuscular Hemoglobin 29.9 pg (28.0-32.0); Mean Corpuscular Volume 93.3 fL (80.0-100.0); Nucleated Red Blood Cells % 0.1 %
[2025-08-16 08:03] LABS: Anion Gap 11 (5-15); Carbon Dioxide 28 mmol/L (20-31); Chloride 100 mmol/L (98-107); Potassium 4.3 mmol/L (3.5-5.1); Sodium 139 mmol/L (136-145)
[2025-08-16 08:05] LABS: Calcium 8.9 mg/dL (8.7-10.4)
[2025-08-16 08:09] LABS: BUN/Creatinine Ratio 18.8 (10.0-20.0); Glucose 97 mg/dL (74-106)
[2025-08-16 08:11] LABS: Blood Urea Nitrogen 42 mg/dL (9-23)
[2025-08-16 10:35] LABS: COVID19 ANTIGEN SOFIA FIA NEGATIVE (NEGATIVE)
--- NOTE | 2025-08-16 11:12 | DVHPN2 ---
Progress Note Date Seen: Aug 16, 2025 Has the PT tested + for MRSA If YES, has PT been informed?: No Medical Necessity Reason Pt with a Central, PICC or Fol: Yes The following are medically ne: [place] Catheter Subjective Review of Systems: RESPIRATORY:Abnormal Other Systems: Patient seen and examined by myself today in follow-up Objective vital signs Vital Sign Date Time Temp Pulse Resp B/P (MAP) Pulse Ox O2 Delivery O2 Flow Rate FiO2 08/16/25 10:30 97 Nasal Cannula* 2 28 08/16/25 09:00 97.8 60 16 150/61 (90) 97.8 Total Intake and Output 08/15/25 08/15/25 08/16/25 15:00 23:00 07:00 Intake Total 1100 ml 375 ml Output Total 925 ml 150 ml Balance 175 ml 225 ml medications Current Medications Medications Dose Ordered Sig/Payam Route Start Time Stop Time Status Last Admin Dose Admin Prednisone 40 mg DAILY PO 08/10/25 10:00 08/16/25 08:52 40 MG Pantoprazole Sodium 40 mg DAILY@0600 PO 08/10/25 06:00 08/16/25 05:31 40 MG Atorvastatin Calcium 40 mg HS PO 08/09/25 22:00 08/15/25 22:10 40 MG Allopurinol 100 mg DAILY PO 08/11/25 10:00 08/16/25 08:54 100 MG Melatonin 10 mg HS PO 08/10/25 22:00 08/15/25 22:19 10 MG Carvedilol 3.125 mg BID PO 08/10/25 22:00 08/16/25 08:52 3.125 MG Gabapentin 100 mg TID PO 08/10/25 22:00 08/16/25 05:31 100 MG Amoxicillin/ Clavulanate Potassium 500 mg Q12H PO 08/12/25 17:00 08/16/25 05:31 500 MG Doxycycline Monohydrate 100 mg Q12HR PO 08/12/25 22:00 08/16/25 08:53 100 MG Apixaban 2.5 mg BID PO 08/12/25 22:00 08/16/25 08:51 2.5 MG Buspirone HCl 15 mg Q12HR PO 08/13/25 22:00 08/16/25 08:51 15 MG Furosemide 80 mg DAILY PO 08/14/25 10:00 08/16/25 08:53 80 MG Ipratropium [place] 0.5 mg Q4HWA [facility] 08/16/25 14:00 Albuterol 2.5 mg Q4HWA [facility] 08/16/25 14:00 Examination: LUNGS:Normal (Bilateral wheezing), LUNGS:Abnormal, CVS:Normal, ABDOMEN:Normal laboratory and microbiology Laboratory Tests 08/16/25 07:29 Test 08/16/25 07:29 Range/Units Serum Glucose 97 74-106 mg/dL Microbiology Date/Time Source Procedure Growth Status 08/10/25 06:42 Nose MRSA Screen - Final Complete Problem List/Assessment/Plan Problem List/Assessment/Plan Acute kidney injury superimposed Chronic Kidney Disease secondary hemodynamic mediated COPD exacerbation Chronic diastolic Congestive heart failure Hypertension Anemia of chronic kidney disease Recommendations Kidney function slowly improving Increased urine output Strict I&Os Renal diet Nebulize treatment q.4 hours Pulmonary consult We will continue to follow up Total care time 35 minutes Plan discussed with: Patient My Orders My Orders Orders - DORCAS SILVA MD Procedure Category Date Status Time Ipratropium Medneb PHA 08/16/25 In Process (Atrovent Medneb) 14:00 Albuterol Medneb PHA 08/16/25 In Process (Ventolin Medneb) 14:00 Dietary Evaluation Review Comments: 1) Continue current plan of care 2) Monitor PO intake, lab values, weight trend, and I/O Expected Outcomes/Goals: Lab values to improve Fu 3-5 days DORCAS SILVA MD Aug 16, 2025 11:12
[2025-08-16] MEDS: ALBUTEROL SULF 2.5 MG/0.5ML(0.5%) NEB SOLN NEB SCH (14:27)
[2025-08-16] MEDS: IPRATROPIUM BROM 0.5 MG/2.5ML INH SOL NEB SCH (14:27)
--- NOTE | 2025-08-16 15:01 | DVHPNRES ---
Progress Note Date Seen: Aug 16, 2025 Resident Creating Document: LORI LANG RESIDENT Has the PT tested + for MRSA If YES, has PT been informed?: No Medical Necessity Reason Pt with a Central, PICC or Fol: Yes The following are medically ne: [place] Catheter Subjective Review of Systems 85-year-old female with past medical history of chronic diastolic heart failure, HFpEF 65%, a flutter with alfredo status post pacemaker on 06/18/2025, hypertension, severe aortic stenosis status post TAVR, gout, COPD, mitral stenosis, GERD, CKD stage 4 presented to the emergency department with a chief complaint of cough for 5 days which was associated with mucus plugs that were brown in color for the past day. Patient states that she uses 4 L of oxygen at home and has been hearing herself wheeze and is short of breath in the past few days. She was discharged from [facility] on 07/05/2025 and was treated for pneumonia and pacemaker was placed on 06/18/2025. She is currently on Eliquis. She denies any fever, chills, nausea, vomiting, diarrhea, dizziness, hematemesis, blurred vision. She is currently on 2 L of oxygen with saturation of 93 and chest x-ray shows pulmonary vascular congestion. past medical history: As stated in [place] [place] past surgical history: Pacemaker Family history: Reviewed, noncontributory to illness Social history: Nonsmoker, denies drinking alcohol or taking any other drugs allergies: None code: Full code 08/10/2025: Today the patient reports feeling better but still has bilateral wheezing. Reports show she is COVID positive. Patient reports she takes melatonin 10 mg for insomnia which we began today. We are continuing her IV antibiotics, prednisolone and med neub. possibly starting Jardiance from tomorrow. 08/11/2025: Today patient was seen and examined by me at the bedside. Patient reports feeling slightly better than yesterday. We will be continuing her antibiotics and med nebulizations. Gabapentin is given twice a day for her pins and needle sensation in the feet. 08/12/2025: today the patient reports feeling better. wheezes have improved. no active new complaints. possible d/c tommorow back home with home health services 08/13/2025: Patient reports feeling better but slightly drowsy. Patient is creatinine levels slowly up trending. Today creatinine was 2.67. Repeat chest x-ray shoed No significant change 08/10/2025. Today the patient had shaking movement of the hands and feet. On distraction however it stopped. 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 08/14 Patient was evaluated today at bedside. She is alert, oriented, and breathing comfortably on 2 L NC (previously 4 L home O?). Reports improvement in dyspnea and wheezing; denies chest pain, fever, chills, nausea, vomiting, or diarrhea.?She had four bowel movements today, tolerating oral diet well. Reports mild fatigue and generalized weakness during PT but not able to ambulate . Tremors that were present two days ago have significantly improved.Sleep has improved with melatonin. No new complaints 08/15 Patient was seen and examined by me at the bedside. Patient who reports improved in dyspnea and wheezing but complaints of a headache 04/20 (tylenol given) and overnight her blood pressure was high 184/68mmhg. IV hydralazine 10 was given and her blood pressure came back to 126/ 69mmhg. patient reports that she still feels weak and is not able to walk much. Possible discharge tomorrow go back to [facility]. PT mushtaq suggested SNF but patient does not want to go back to it. Pickling Grader consulted for home health PT 08/16: Patient was seen and examined by me at the bedside. Patient's son also visited her. We discussed at length regarding patient home needs and patient and son agreed that patient requires SNF placement and requested for [facility] with the son works. patient services specialist consult was placed and we are awaiting on the SNF placement at [facility]. We will discharge the patient once placement has been confirmed. Objective vital signs Vital Sign Date Time Temp Pulse Resp B/P (MAP) Pulse Ox O2 Delivery O2 Flow Rate FiO2 08/16/25 14:35 75 20 100 08/16/25 14:27 Nasal Cannula 2.0 08/16/25 14:27 28 08/16/25 13:00 97.5 121/44 (69) 97.5 Total Intake and Output 08/15/25 08/15/25 08/16/25 15:00 23:00 07:00 Intake Total 1100 ml 375 ml Output Total 925 ml 150 ml Balance 175 ml 225 ml medications Current Medications Medications Dose Ordered Sig/Payam Route Start Time Stop Time Status Last Admin Dose Admin Prednisone 40 mg DAILY PO 08/10/25 10:00 08/16/25 08:52 40 MG Pantoprazole Sodium 40 mg DAILY@0600 PO 08/10/25 06:00 08/16/25 05:31 40 MG Atorvastatin Calcium 40 mg HS PO 08/09/25 22:00 08/15/25 22:10 40 MG Allopurinol 100 mg DAILY PO 08/11/25 10:00 08/16/25 08:54 100 MG Melatonin 10 mg HS PO 08/10/25 22:00 08/15/25 22:19 10 MG Carvedilol 3.125 mg BID PO 08/10/25 22:00 08/16/25 08:52 3.125 MG Gabapentin 100 mg TID PO 08/10/25 22:00 08/16/25 14:20 100 MG Amoxicillin/ Clavulanate Potassium 500 mg Q12H PO 08/12/25 17:00 08/16/25 05:31 500 MG Doxycycline Monohydrate 100 mg Q12HR PO 08/12/25 22:00 08/16/25 08:53 100 MG Apixaban 2.5 mg BID PO 08/12/25 22:00 08/16/25 08:51 2.5 MG Buspirone HCl 15 mg Q12HR PO 08/13/25 22:00 08/16/25 08:51 15 MG Furosemide 80 mg DAILY PO 08/14/25 10:00 08/16/25 08:53 80 MG Ipratropium [place] 0.5 mg Q4HWA [facility] 08/16/25 14:00 08/16/25 14:27 0.5 MG Albuterol 2.5 mg Q4HWA [facility] 08/16/25 14:00 08/16/25 14:27 2.5 MG Examination General: Elderly female, alert, in no acute distress. HEENT: Normocephalic, no JVD, mucous membranes moist. Lungs: Diminished breath sounds bilaterally with scattered rhonchi and mild wheezing; improving air entry. Cardiac: Regular paced rhythm; no new murmurs; trace peripheral edema. Abdomen: Soft, non-tender, non-distended; bowel sounds active. Neuro: AAOx3, no focal deficit; mild fatigue with PT activity. Skin: Warm, intact. laboratory and microbiology Laboratory Tests 08/16/25 07:29 Test 08/16/25 07:29 Range/Units Serum Glucose 97 74-106 mg/dL Microbiology Date/Time Source Procedure Growth Status 08/10/25 06:42 Nose MRSA Screen - Final Complete Problem List/Assessment/Plan Problem List/Assessment/Plan 1. Respiratory System Acute Hypoxic Respiratory Failure due to A/C COPD Exacerbation + CHF + Covid viral Pneumonia * COVID-19 positive (08/10); improving respiratory status. * CXR: no new infiltrate; mild vascular congestion. * On 2 L NC with SpO? 93 %. Plan: * Continue prednisolone 40 mg daily ? plan to taper to 20 mg over next 5 days. * Continue PO amoxicillin-clavulanate and doxycycline for broad coverage (Gram atypical). * Inhaled ipratropium and albuterol PRN. * Continue pulmonary toilet, incentive spirometry. * RT to assess need for home oxygen re-qualification prior to discharge. * Outpatient pulmonary follow-up in 12 weeks. 2. Cardiac System Chronic Diastolic HF (HFpEF 65 %), s/p TAVR & Aflutter with Alfredo s/p Pacemaker, HTN.,Type 2 [place] * Hemodynamically stable, no volume overload clinically. Plan: * Continue carvedilol 3.125 mg BID and furosemide 80 mg PO daily. * Strict I/O and daily weights. * Monitor BNP and electrolytes. * Continue atorvastatin 40 mg HS. * Resume empagliflozin (Jardiance) 5 mg PO daily starting tomorrow if renal function stable. * Maintain BP goal < 130/80 per AHA HFpEF guidelines. 3. Renal System Acute on CKD Stage IV (Improving Cr 2.44 from 2.61) /VMN * Likely cardiorenal component; responding to oral diuretics. Plan: * Avoid nephrotoxins (NSAIDs, IV contrast). * Continue PO furosemide 80 mg daily. * BMP daily to monitor trend. * Encourage hydration while maintaining euvolemia. * OP follow-up in 2 weeks. 4. Neurologic System Tremor (Improving), Mild Weakness * Likely steroid related or metabolic; no focal deficit.?Plan: Continue gabapentin 100 mg TID for neuropathy; monitor for sedation.?PT/OT evaluation ? recommend front-wheel walker for ambulation support. 5. Infectious Diseases COVID-19 Positive, Resolved Bacterial Component * Afebrile, improving O? requirement, no new leukocytosis.?Plan: Continue current antibiotic course and steroids; droplet precautions as per protocol. 6. Endocrine / Metabolic * Blood glucose stable on steroids; monitor daily. * Consider insulin sliding scale if hyperglycemia > 180 mg/dL. 7. GI / Nutrition * Tolerating diet well. * Continue pantoprazole 40 mg daily (GI prophylaxis). * Cardiac diet with moderate Na restriction and high protein intake. 8. Hematology * Stable anemia of CKD (Hgb 9.7). * Monitor CBC q24h. * Apixaban 2.5 mg BID for atrial flutter (continue). 9. Musculoskeletal / Mobility * Generalized weakness improving.?Plan: Continue PT/OT therapy; arrange home PT on discharge.?Order front-wheel walker for safe ambulation. 10. Psychiatric / Sleep * Anxiety and insomnia controlled with buspirone and melatonin. * Continue current regimen. * Morbid obesity - patient counseled regarding weight loss, exercise * Gout - continue home medication allopurinol 100 mg 11. Prophylaxis and Supportive Care * DVT Prophylaxis: Apixaban (therapeutic). * GI Prophylaxis: Pantoprazole 40 mg PO daily. * Pressure Injury Prevention: Reposition q2h; skin checks daily. * Fall Precautions: PT evaluation, bed alarm, assist for ambulation. * PLAN FOR DISPOSITION * Clinically improving; * Waiting for SNF placement Case discussed in detail with the attending physician, including the clinical presentation, diagnostic work-up, and comprehensive management plan. The patient was present for the discussion and demonstrated understanding of her condition and the proposed plan. Plan discussed with: Dr Justice, Patient, Son Plan discussed with: Patient, Son, Other (rn) My Orders My Orders Orders - LORI LANG Procedure Category Date Status Time * Pickling Grader CONS 08/16/25 Transmitted Consult Dietary Evaluation Review Comments: 1) Continue current plan of care 2) Monitor PO intake, lab values, weight trend, and I/O Expected Outcomes/Goals: Lab values to improve Fu 3-5 days Date of Service: Aug 16, 2025 Billing Provider: FAIZAN JUSTICE MD Common Visit Codes: 69815-XMQ/OBS DISCH DAY >30min LORI LANG Aug 16, 2025 15:01 FAIZAN JUSTICE MD Aug 16, 2025 18:29
--- NOTE | 2025-08-16 16:28 | DVHDSRES ---
Discharge Summary Date of Admission Resident Creating Document: LORI LANG RESIDENT Aug 09, 2025 at 19:06 Date of Discharge: Aug 16, 2025 Admitting Diagnosis Acute COPD exacerbation, acute CHF exacerbation Labs/Diagnostic Data: Laboratory Results Test 08/16/25 09:30 08/16/25 07:29 08/14/25 04:49 08/13/25 14:52 SARS-CoV-2 Antigen (Rapid) Negative (NEGATIVE) White Blood Count 10.5 10^3/uL (4.4-10.8) Red Blood Count 3.27 10^6/uL (4.0-5.20) Hemoglobin 9.8 g/dL (12.2-16.2) Hematocrit 30.5 % (36.0-46.0) Mean Corpuscular Volume 93.3 fL (80.0-100.0) Mean Corpuscular Hemoglobin 29.9 pg (28.0-32.0) Mean Corpuscular Hemoglobin Concent 32.1 g/dL (32.0-36.0) Red Cell Distribution Width 16.6 % (11.8-14.3) Platelet Count 258 10^3/uL (140-450) Mean Platelet Volume 10.1 fL (6.9-10.8) Neutrophils (%) (Auto) 80.7 % (37.0-80.0) Lymphocytes (%) (Auto) 9.3 % (10.0-50.0) Monocytes (%) (Auto) 9.4 % (0.0-12.0) Eosinophils (%) (Auto) 0.4 % (0.0-7.0) Basophils (%) (Auto) 0.2 % (0.0-2.0) Neutrophils # (Auto) 8.5 10 ^3/uL (1.6-8.6) Lymphocytes # (Auto) 1.0 10 ^3/uL (0.4-5.4) Monocytes # (Auto) 1.0 10 ^3/uL (0-1.3) Eosinophils # (Auto) 0 10 ^3/uL (0-0.8) Basophils # (Auto) 0 10 ^3/uL (0-0.2) Nucleated Red Blood Cells 0.1 % Sodium Level 139 mmol/L (136-145) Potassium Level 4.3 mmol/L (3.5-5.1) Chloride Level 100 mmol/L (98-107) Carbon Dioxide Level 28 mmol/L (20-31) Anion Gap 11 (5-15) Blood Urea Nitrogen 42 mg/dL (9-23) Creatinine 2.24 mg/dL (0.550-1.02) Glomerular Filtration Rate Calc 21 mL/min (>90) BUN/Creatinine Ratio 18.8 (10.0-20.0) Serum Glucose 97 mg/dL (74-106) Calcium Level 8.9 mg/dL (8.7-10.4) Magnesium Level 2.5 mg/dL (1.6-2.6) Uric Acid 6.1 mg/dL (3.1-7.8) Phosphorus Level 3.4 mg/dL (2.4-5.1) Test 08/09/25 19:55 08/09/25 19:50 08/09/25 17:10 08/09/25 13:46 D-Dimer, Quantitative 0.51 mg/L FEU (0.0-0.49) Troponin I High Sensitivity 31 ng/L (</=34) Influenza Type A Antigen Negative (Negative) Influenza Type B Antigen Negative (Negative) Urine Color Colorless (Yellow) Urine Clarity Clear (Clear) Urine pH 5.5 (5.0-9.0) Urine Specific [place] 1.006 (1.001-1.035) Urine Protein Negative (Negative) Urine Ketones Negative (Negative) Urine Blood Negative /uL (Negative) Urine Nitrite Negative (Negative) Urine Bilirubin Negative (Negative) Urine Urobilinogen Normal mg/dL (Negative) Urine Leukocyte Esterase Negative /uL (Negative) Urine RBC None seen /hpf (0 - 4) Urine Microscopic WBC < 1 /HPF (0-5) Urine Squamous Epithelial Cells None seen /hpf (<5) Urine Bacteria Many /hpf (None Seen) Urine Glucose Normal mg/dL (Normal) B-Type Natriuretic Peptide 390.37 pg/mL (0-100) Test 08/09/25 13:43 Differential Total Cells Counted 100.0 (100) Neutrophils % (Manual) 54 (37.0-80.0) Band Neutrophils % (Manual) 0 Lymphocytes % (Manual) 19 (10.0-50.0) Monocytes % (Manual) 20 (0-12) Eosinophils % (Manual) 7 (0-7) Basophils % (Manual) 0 (0.0-2.0) Metamyelocytes % (manual) 0 Myelocytes % (Manual) 0 Promyelocytes % (Manual) 0 Blast Cells % (Manual) 0 Reactive Lymphocytes 0 Platelet Estimate Adequate Total Bilirubin 0.5 mg/dL (0.2-1.0) Aspartate Amino Transferase (AST) 57 U/L (13-40) Alanine Aminotransferase (ALT) 43 U/L (7-40) Alkaline Phosphatase 57 U/L (46-116) Total Protein 6.2 g/dL (5.7-8.2) Albumin 3.9 g/dL (3.2-4.8) Thyroid Stimulating Hormone (TSH) 4.99 uIU/mL (0.55-4.78) Other Laboratory Tests 08/16/25 07:29 Brief Hx & Hospital Course: 85-year-old female with past medical history of chronic diastolic heart failure, HFpEF 65%, a flutter with ana status post pacemaker on 06/18/2025, hypertension, severe aortic stenosis status post TAVR, gout, COPD, mitral stenosis, GERD, CKD stage 4 presented to the emergency department with a chief complaint of cough for 5 days which was associated with mucus plugs that were brown in color for the past day. Patient states that she uses 4 L of oxygen at home and has been hearing herself wheeze and is short of breath in the past few days. She was discharged from [facility] on 07/05/2025 and was treated for pneumonia and pacemaker was placed on 06/18/2025. She is currently on Eliquis. She denies any fever, chills, nausea, vomiting, diarrhea, dizziness, hematemesis, blurred vision. She is currently on 2 L of oxygen with saturation of 93 and chest x-ray shows pulmonary vascular congestion. past medical history: As stated in [facility] past surgical history: Pacemaker Family history: Reviewed, noncontributory to illness Social history: Nonsmoker, denies drinking alcohol or taking any other drugs allergies: None code: Full code Brief history of hospitalization: patient came to the emergency with complaints of cough for 5 days with brown mucus plugs and shortness of breaths as well as wheezing. She had acute hypoxic respiratory failure due to acute exacerbation of COPD. We did an x-ray which showed marked congestion of bilateral lungs. We started med nebulization of ipratropium and albuterol and gave her prednisolone daily. Oxygen saturation was maintained up to 92 every day and we began Zosyn and azithromycin antibiotics for her. Respiratory culture was sent out and COVID and influenza tests were done. Patient came back COVID positive and was kept on isolation. Since Patient also has cardiac comorbidities in his HFpEF with ejection fraction of 65%, with her pitting edema of bilateral feet we started furosemide 80 mg IV daily. she has been in the hospital, her wheezing has improved and chest x-rays were repeated which improved as well. The bilateral pitting edema in her legs have decreased as well. BNP on admission was 390.37 and troponins were 36 34. Since patient takes Eliquis at home, we started Lovenox 100 mg subcutaneous b.i.d. here in the hospital, monitor on telemetry continued her home medication carvedilol. Patient also has acute on chronic renal failure stage 4, likely cardiorenal and anemia of chronic disease so we continue to monitor her labs. Patient has also been counseled regarding the need of weight loss and exercise for her morbid obesity and during hospitalization we continued her home medication for gout as well. Physical therapy was done daily during hospitalization. A repeat COVID test came back negative on 08/16/2025. Patient is now stable for discharge and will be going to [facility] facility[facility]. Patient and son have communicated understanding and will be discharged with antibiotics, she has agreed to the discharge plan. Pt is lying on bed General Appearance: Alert, Oriented X3, Cooperative, Not in acute distress HEENT: Atraumatic, Mucous membranes moist/pink, on 2l of o2 NC Respiratory: Clear to auscultation, Normal air movement, bilateral wheezing Cardiovascular: Regular rate, Normal S1, Normal S2, No murmurs Abdominal: Active bowel sounds, Soft, no distention, no tenderness Extremities: No edema, Normal pulses, +1 pitting edema in bilateral legs Skin: No Significant rash, except past surgical scars Neuro: Normal speech, sensorimotor deficits none Psych/Mental Status: Mental status NL, Mood NL Nurse was there as clinical rehabilitation aide during exam Operations or Procedures CHEST RADIOGRAPH Indication: sob IMPRESSION: 1. Pulmonary vascular congestion. 2. Findings are suggestive of congestive failure. Correlate clinically. CHEST RADIOGRAPH Indication: sob IMPRESSION: 1. No acute cardiopulmonary disease. Condition at Discharge: Stable Final Diagnosis/Problems List * Acute Hypoxic respiratory failure due to acute exacerbation of COPD, possible CHF exacerbation and acute gram positive/neg community acquired bacterial pneumonia * acute exacerbation of COPD * acute , Gram-positive, Gram-negative community acquired pneumonia * Acute on chronic diastolic heart failure, HFpEF 65 % * Hypertension * NSTEMI type 2 * Severe aortic stenosis, s/p TAVR. * Severe Mitral stenosis * Acute on chronic renal failure stage 4, likely cardiorenal * Anemia of chronic disease * Morbid obesity * Gout Discharge Disposition: Custodial Facility Discharge Instruct/Medications Diet: Consistent carbohydrate, Cardiac 2g Na,low cholest Activity: No Restrictions, As Tolerated Follow Up/Referral: Follow up with primary care physician in 10 days Follow up at [facility] within 2 weeks Follow up with line [facility] within 2 weeks Medications: Trelegy inhalation 1 puff daily Doxycycline 100 mg per orally daily for 5 days Augmentin 875 mg per orally daily for 5 days Scheduled Allopurinol (Allopurinol), 1 TAB PO DAILY, (Reported) Amiodarone HCl (Amiodarone HCl), 1 TAB PO BID, (Reported) Apixaban Base (Eliquis), 1 TAB PO BID, (Reported) Atorvastatin Calcium (Lipitor), 1 TAB PO DAILY, (Reported) Carvedilol (Carvedilol), 1 TAB PO BID, (Reported) Colchicine (Colchicine), 1 CAP PO DAILY, (Reported) Furosemide (Furosemide), 1 TAB PO DAILY, (Reported) Montelukast Sodium (Montelukast Sodium), 1 TAB PO DAILY, (Reported) Pantoprazole Sodium Sesquihydr (Protonix), 1 TAB PO QAM, (Reported) Sildenafil Citrate (Sildenafil Citrate), 1 TAB PO TID, (Reported) Scheduled PRN Albuterol Sulfate (Albuterol Sulfate Hfa), 2 PUFF IN QID PRN for SHORTNESS OF BREATH, (Reported) Discontinued Medications Aspirin (Aspirin), 2 TAB PO QAM, (Reported) Discharge Statement: "Patient was advised to return to the ER or call 911 if any headaches, dizziness, shortness of breath, chest pain, abdominal pain, bleeding, fevers, or worsening of medical condition. Patient was counseled about treatment plan, medications, possible side effects, patientverbalized understanding. All questions were answered to the best of my ability. This discharge took greater then 30 minutes in planning, reviewing documentation, counseling the patient, and discussing with other team members." ASSESSMENT ASSESSMENT Assessment * Acute Hypoxic respiratory failure due to acute exacerbation of COPD, possible CHF exacerbation and acute gram positive/neg community acquired bacterial pneumonia Date of Service: Aug 16, 2025 Billing Provider: LORI LANG Common Visit Codes: 05811-GOI/OBS DISCH DAY >30min LORI LANG Aug 16, 2025 16:28 FAIZAN JUSTICE MD Aug 16, 2025 18:30
[2025-08-16] MEDS ORDERED: SILDENAFIL CITRATE 20 MG TAB PO SCH (22:00)
== END 2025-08-16 19:00 | DRG 280 ==
LOC: EDBD 13:16 → ER 13:16 → OVERFLOW 19:06 → TELE-CENTR 23:45 → CENTRAL 08-11 11:11
PROVIDERS: ADMIT Student in an Organized Health Care Education/Training Program; ATTEND Student in an Organized Health Care Education/Training Program
DX: I13.0 Hypertensive heart and chronic kidney disease with heart failure and stage 1 through stage 4 chronic kidney disease, or unspecified chronic kidney disease (principal); I50.33 Acute on chronic diastolic (congestive) heart failure; I21.A1 Myocardial infarction type 2; U07.1 COVID-19; J96.01 Acute respiratory failure with hypoxia; J12.82 Pneumonia due to coronavirus disease 2019; J15.9 Unspecified bacterial pneumonia; J15.69 Pneumonia due to other Gram-negative bacteria; J44.1 Chronic obstructive pulmonary disease with (acute) exacerbation; N18.4 Chronic kidney disease, stage 4 (severe); J44.0 Chronic obstructive pulmonary disease with (acute) lower respiratory infection; N17.9 Acute kidney failure, unspecified; I48.92 Unspecified atrial flutter; I35.0 Nonrheumatic aortic (valve) stenosis; I05.0 Rheumatic mitral stenosis; E66.01 Morbid (severe) obesity due to excess calories; M10.9 Gout, unspecified; K21.9 Gastro-esophageal reflux disease without esophagitis; I25.10 Atherosclerotic heart disease of native coronary artery without angina pectoris; E11.22 Type 2 diabetes mellitus with diabetic chronic kidney disease; I27.20 Pulmonary hypertension, unspecified; I45.9 Conduction disorder, unspecified; D63.1 Anemia in chronic kidney disease; E11.65 Type 2 diabetes mellitus with hyperglycemia; F41.9 Anxiety disorder, unspecified; G47.00 Insomnia, unspecified; J98.4 Other disorders of lung; Z95.0 Presence of cardiac pacemaker; Z95.2 Presence of prosthetic heart valve; Z79.01 Long term (current) use of anticoagulants; Z88.5 Allergy status to narcotic agent; Z88.1 Allergy status to other antibiotic agents; Z82.49 Family history of ischemic heart disease and other diseases of the circulatory system; Z68.23 Body mass index [BMI] 23.0-23.9, adult
CPT/HCPCS: 36415; 71045; 80048; 80053; 81001; 83735; 83880; 84100; 84443; 84484; 84550; 85007; 85025; 85027; 85379; 87081; 87426; 87804; 93005; 94640; 96365; 97110; 97116; 97163; 99291; 99292; G0378; J2543

== ENCOUNTER 2025-10-22 12:11 | Inpatient (IN) | payer MEDICARE, MEDICAID ==
[~2025-10-22] VITALS: Ht 157.5 cm; Wt 87.2 kg
[2025-10-22] VITALS (15 sets, daily range): BP systolic 127–155; BP diastolic 40–72; PULSE 77–90; RESP 16–25; TEMP 97.7–98.6; O2SAT 93–100
[~2025-10-22 12:11] MED LIST changes: -ASPI1TAB19 PO; -ATOR20TA50 PO
--- NOTE | 2025-10-22 12:42 | ED.PDOC ---
SOB-HPI HPI Comments HPI: 85 year old obese female, presents to the ED via wheelchair with chief complaint of abnormal labs. Patient reports she was told to come to the ED by her PCP after identifying low HGB levels in her blood work yesterday. Patient additionally reports SOB onset as of July, after having pacemaker in place on 06/18/25. Patient reports being on 3L of 02 at home. There are no further complaints or modifying factors at this time. Patients vitals are stable. Initial Vitals BP: 138/52 HR: 79 RR: 18 O2: 99 on RA Temp: 98.5 Past Medical History: CHF, GA, HTN, CKF, COPD Past Surgical History: Heart Valve Replacement X1 year ago, Pacemaker as of 06/18/25 Social History: Denies Medications: Eliquis Allergies: Acetaminophen, Hydrocodone, Tramadol HPI: Poor Historian. REVIEW OF SYSTEMS: CONSTITUTIONAL: Denies acute: fever, diaphoresis, chills, HEAD: Denies acute: headache, photophobia Eyes: Denies acute: Double vision, vision loss, eye pain, eye discharge. EARS: Denies acute: tinnitus, hearing loss, ear discharge, ear pain, THROAT: Denies acute: sore throat, swelling, difficulty swallowing , pain with swallowing, change in voice. NECK: Denies acute: neck pain, neck swelling, stiff neck. HEART: Denies acute : chest pain, palpitations, LUNGS: Denies acute: wheezing, cough, hemoptysis ABDOMEN: Denies acute: abdominal pain, Nausea, Vomiting, diarrhea, melena , hematemesis, hematochezia SKIN: Denies acute: rash, redness, lesions, itchiness. EXTREMITIES: Denies acute: calf pain, numbness, tingling, weakness, denies pain in extremity. Denies acute: Low back pain. Neuro: Denies acute: focal neurological deficit, motor or sensory focal neurological deficit, tremors, seizure like activity, confusion, dizziness, change in mental status, loss of bowel or bladder function, cauda equina like symptoms. : Denies acute: dysuria, hematuria, flank pain, increase in urinary frequency. PSYCH: Denies acute: hallucination, suicidal ideation, homicidal ideation. FEMALE: Denies acute: abnormal vaginal bleeding, foul odor, unusual discharge. PHYSICAL EXAM: General: ----no----acute distress, awake and alert. Head: normocephalic, atraumatic. No raccoon's eyes, no bianchi sign. Neck: supple, trachea is midline, no swelling. Throat: Normal phonation. Eyes:, no erythema, no purulent discharge, no proptosis, no icterus. Heart: regular rate, regular rhythm, no significant murmur appreciated. Lungs: no apparent respiratory distress, Able to speak in full sentences. No wheezing, no rhonchi, no crackles. No stridors Clear to auscultation bilaterally. Abdomen: non tender to palpation, non distended, soft, no guarding, no rebound, + bowel sounds. Neuro: Awake, Alert, oriented to name, self, situation, follows commands GCS=15. Speech is normal. Skin: no petechia, no purpura, no cyanosis, slightly-pale, not jaundice. Lower extremities: --trace bilateral - Pitting edema no deformity, no focal swelling, no calf TTP. Makes eye contact. moves all four extremities. Face: no apparent facial droop. ED COURSE: DISCLAIMER: This medical document was created using an electronic medical record system with voice recognition software and computerized dictation system. Although this document has been carefully reviewed, there might still be some phonetic and typographical errors. Occasional wrong-word or "sound-alike" substitutions may have occurred due to the inherent limitations of voice recognition software. These areas are purely typographical due to imperfections of the software programs and do not reflect any compromise in the patient's medical care. Please read the chart carefully and recognize, using context, where these substitutions have occurred. 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 Was a procedure done?: No Differential Dx Differential Diagnosis: Anxiety, Asthma, Bronchitis, CHF, COPD, Hypertension, Pneumonia, Sinusitis, Pharyngitis X-Ray, Labs, Meds, VS Vital Signs Date Time Temp Pulse Resp B/P (MAP) Pulse Ox O2 Delivery O2 Flow Rate FiO2 10/22/25 13:37 98.6 90 25 127/49 (75) 96 98.6 10/22/25 13:37 90 25 96 Room Air* 0 21 10/22/25 12:59 20 100 Room Air* 0 21 10/22/25 12:21 98.5 79 18 138/52 99 98.5 10/22/25 12:15 87 Lab Test 10/22/25 14:10 10/22/25 13:00 Range/Units Troponin I High Sensitivity 47 *H 41 *H </=34 ng/L Triglycerides Level 66 < 150 mg/dL Cholesterol Level 143 < 200 mg/dL LDL Cholesterol 80 < 100 mg/dL HDL Cholesterol 52 40-59 mg/dL White Blood Count 7.6 4.4-10.8 10^3/uL Red Blood Count 2.59 L 4.0-5.20 10^6/uL Hemoglobin 6.8 *L 12.2-16.2 g/dL Hematocrit 21.7 L 36.0-46.0 % Mean Corpuscular Volume 83.9 80.0-100.0 fL Mean Corpuscular Hemoglobin 26.1 L 28.0-32.0 pg Mean Corpuscular Hemoglobin Concent 31.1 L 32.0-36.0 g/dL Red Cell Distribution Width 19.3 H 11.8-14.3 % Platelet Count 334 140-450 10^3/uL Mean Platelet Volume 8.8 6.9-10.8 fL Neutrophils (%) (Auto) 70.0 37.0-80.0 % Lymphocytes (%) (Auto) 12.0 10.0-50.0 % Monocytes (%) (Auto) 12.8 H 0.0-12.0 % Eosinophils (%) (Auto) 3.9 0.0-7.0 % Basophils (%) (Auto) 1.3 0.0-2.0 % Neutrophils # (Auto) 5.3 1.6-8.6 10 ^3/uL Lymphocytes # (Auto) 0.9 0.4-5.4 10 ^3/uL Monocytes # (Auto) 1.0 0-1.3 10 ^3/uL Eosinophils # (Auto) 0.3 0-0.8 10 ^3/uL Basophils # (Auto) 0.1 0-0.2 10 ^3/uL Nucleated Red Blood Cells 0.1 % Platelet Estimate Adequate Schistocytes Few Sodium Level 140 136-145 mmol/L Potassium Level 4.3 3.5-5.1 mmol/L Chloride Level 106 98-107 mmol/L Carbon Dioxide Level 23 20-31 mmol/L Anion Gap 11 5-15 Blood Urea Nitrogen 24 H 9-23 mg/dL Creatinine 1.79 H 0.550-1.02 mg/dL Glomerular Filtration Rate Calc 28 >90 mL/min BUN/Creatinine Ratio 13.4 10.0-20.0 Serum Glucose 101 74-106 mg/dL Lactic Acid Level 1.7 0.4-2.0 mmol/L Calcium Level 9.3 8.7-10.4 mg/dL Total Bilirubin 0.4 0.2-1.0 mg/dL Aspartate Amino Transferase (AST) 18 13-40 U/L Alanine Aminotransferase (ALT) 15 7-40 U/L Alkaline Phosphatase 69 46-116 U/L B-Type Natriuretic Peptide 394.76 0-100 pg/mL Total Protein 7.1 5.7-8.2 g/dL Albumin 4.4 3.2-4.8 g/dL [place] [id number] Ph: [phone] DIAGNOSTIC IMAGING Diagnostic Imaging Report : [id number] Signed PATIENT: KEN BENTLEY ACCT: [id number] UNIT: [id number] : 1940 LOC: ER ROOM / BED: / AGE / SEX: 85 / F ADM STATUS: REG ER SERVICE [id number] ORDERING PHYSICIAN: KELLEY SUTHERLAND DO PROCEDURE(s): CXRP - CHEST PORTABLE REASON: sob/cp ORDER NUMBER(s): [id number], ACCESSION NUMBER(s): [id number] EXAM: XY CHEST PORTABLE HISTORY: sob/cp COMPARISON: XY CHEST PORTABLE on DOS: 08/13/25, XY CHEST PORTABLE on DOS: 08/10/25, XY CHEST PORTABLE on DOS: 08/09/25, XY CHEST PORTABLE on DOS: 06/30/25, XY CHEST XRAY 1 VIEW on DOS: 06/27/25 TECHNIQUE: Portable upright AP view of the chest was performed. FINDINGS: Left chest pacemaker is re-identified. There is diffuse interstitial prominence throughout both lungs, increased versus prior chest x-ray. No pneumothorax or consolidative infiltrates. The heart is not enlarged. IMPRESSION: Diffusely increased interstitial prominence may be due to worsening CHF, interstitial pneumonia, or reactive airways disease. Time of 1ST Reevaluation: 13:25 Reevaluation 1ST: Unchanged Patient Education/Counseling: Diagnosis, Treatment Family Education/Counseling: No Family Present Comments MDM: patient presented with the above HPI.--abnormal lab----workup was initiated. patient was found with the above mentioned diagnosis. the following medications were ordered: please refer to order lists of meds and tests obtained by myself Dr. Sutherland. Patient ED course and VS have been stabilized. Patient has been reassessed in the ED and remained in a stable condition. Pertinent incidental findings were discussed with the patient and/or family. Patient/family voices understanding and is agreeable with plan. Patient has been observed in the ED adequate length of time to insure improvement/stability. Escalation of care considered: Consideration of escalation to observation or admission Patient was given COPD and CHF medications in the setting of shortness of breath. Patient was ADMITTED to the medicine team for further evaluation and treatment of their presentation. All the reports of any imaging studies that were ordered by myself were reviewed by myself. Departure 1 Departure Time of Disposition: 13:34 Impression: Primary Impression: Symptomatic anemia Additional Impression: Dyspnea Disposition: 09 ADMITTED INPATIENT Admit to: Tele Condition: Guarded e-Prescriptions Ferrous Sulfate (Iron (Ferrous Sulfate)) 50 Mg Tab 50 MG PO MWF for 90 Days, #50 TAB Prov: MIGUEL DUNN RESIDENT 10/25/25 Discharged With: Self Critical Care Note Critical Care Time?: Yes (45 min-critical care time only) Critical care comment: Due to a high probability of clinically significant, life threatening deterioration, the patient required my highest level of preparedness to intervene emergently and I personally spent this critical care time directly and personally managing the patient. This critical care time included obtaining a history; examining the patient; pulse oximetry; ordering and review of studies; arranging urgent treatment with development of a management plan; evaluation of patient's response to treatment; frequent reassessment; and, discussions with other providers. This critical care time was performed to assess and manage the high probability of imminent, life-threatening deterioration that could result in multi-organ failure. It was exclusive of separately billable procedures and treating other patients and teaching time. Please see my other sections and the rest of the note for further information on patient assessment and treatment. I personally scribed for KELLEY SUTHERLAND DO ([email or web address]) on 10/22/25 at 12:42. Electronically submitted by Codi Lozano ([employer]). I personally scribed for KELLEY SUTHERLAND DO ([email or web address]) on 10/22/25 at 13:17. Electronically submitted by Codi Lozano ([employer]). I personally scribed for KELLEY SUTHERLAND DO ([email or web address]) on 10/22/25 at 20:02. Electronically submitted by Keyanna Valencia ([facility]). KELLEY SUTHERLAND DO Oct 22, 2025 12:42
[2025-10-22] MEDS: IPRATROPIUM BROM 0.5 MG/2.5ML INH SOL NEB ONE (12:59)
[2025-10-22] MEDS: ALBUTEROL SULF 2.5 MG/0.5ML(0.5%) NEB SOLN NEB ONE (12:59)
--- NOTE | 2025-10-22 13:01 | DVH ---
EXAM: XY CHEST PORTABLE HISTORY: sob/cp COMPARISON: XY CHEST PORTABLE on DOS: 08/13/25, XY CHEST PORTABLE on DOS: 08/10/25, XY CHEST PORTABLE on DOS: 08/09/25, XY CHEST PORTABLE on DOS: 06/30/25, XY CHEST XRAY 1 VIEW on DOS: 06/27/25 TECHNIQUE: Portable upright AP view of the chest was performed. FINDINGS: Left chest pacemaker is re-identified. There is diffuse interstitial prominence throughout both lungs, increased versus prior chest x-ray. No pneumothorax or consolidative infiltrates. The heart is not enlarged. IMPRESSION: Diffusely increased interstitial prominence may be due to worsening CHF, interstitial pneumonia, or reactive airways disease.
[2025-10-22 13:21] LABS: Hematocrit 21.7 % (36.0-46.0); Mean Corpuscular Hemoglobin 26.1 pg (28.0-32.0); Mean Corpuscular Volume 83.9 fL (80.0-100.0); Nucleated Red Blood Cells % 0.1 %
[2025-10-22 13:24] LABS: Hemoglobin 6.8 g/dL (12.2-16.2)
[2025-10-22 13:38] LABS: Alanine Aminotransferase 15 U/L (7-40); Albumin 4.4 g/dL (3.2-4.8); Alkaline Phosphatase 69 U/L (46-116); Anion Gap 11 (5-15); BUN/Creatinine Ratio 13.4 (10.0-20.0); Calcium 9.3 mg/dL (8.7-10.4); Carbon Dioxide 23 mmol/L (20-31); Chloride 106 mmol/L (98-107); Glucose 101 mg/dL (74-106); Potassium 4.3 mmol/L (3.5-5.1); Sodium 140 mmol/L (136-145); Total Protein 7.1 g/dL (5.7-8.2)
[2025-10-22 13:39] LABS: Bilirubin, Total 0.4 mg/dL (0.2-1.0); Blood Urea Nitrogen 24 mg/dL (9-23)
[2025-10-22] MEDS ORDERED: MORPHINE SULFATE INJ 2 MG/ml SYRG IV PRN (14:30)
[2025-10-22] MEDS ORDERED: MORPHINE SULFATE 4 MG/ML SYR/VIAL IV PRN (14:45)
--- NOTE | 2025-10-22 14:45 | DVHHP2 ---
History of Present Illness History of Present Illness An 85-year-old female with a significant past medical history including HFpEF, severe valvular disease status post TAVR, atrial fibrillation on anticoagulation, chronic kidney disease stage 4, COPD, hypertension, and chronic anemia was sent to the ED by her PCP after outpatient labs showed a markedly low hemoglobin. She reports worsening shortness of breath over the past several days, primarily with exertion. She is currently on room air. She endorses intermittent black stools at home. Baseline hemoglobin is approximately 910. In the ED, hemoglobin was found to be 6.8, and she was started on transfusion of 2 units of packed red blood cells. Chest X-ray demonstrated pulmonary vascular congestion. She was admitted for further evaluation and management. PMHx HFpEF, severe aortic stenosis status post TAVR, severe mitral stenosis, atrial fibrillation on anticoagulation, chronic kidney disease stage 4, COPD, hypertension, chronic anemia, gout, morbid obesity, prior NSTEMI type 2 PSHx TAVR Social History Former smoker, denies alcohol or illicit drug use ROS Negative except as per HPI Review of Systems Allergies: Coded Allergies: Acetaminophen (Verified Allergy, Unknown, 08/09/25) Hydrocodone (Verified Allergy, Unknown, 08/09/25) Tramadol (Verified Adverse Reaction, Unknown, 06/18/25) Medications Current Medications Medications Dose Ordered Sig/Payam Route Start Time Stop Time Status Last Admin Dose Admin Pantoprazole Sodium 40 mg BID IV 10/22/25 22:00 Furosemide 40 mg DAILY IV 10/23/25 10:00 Albuterol 2.5 mg Q8HR NEB 10/22/25 22:00 Ipratropium [place] 0.5 mg Q8HR NEB 10/22/25 22:00 Morphine Sulfate 2 mg Q4HPRN PRN IV 10/22/25 14:45 Exam Vital Signs Vital Signs Date Time Temp Pulse Resp B/P (MAP) Pulse Ox O2 Delivery O2 Flow Rate FiO2 10/22/25 13:37 98.6 90 25 127/49 (75) 96 98.6 10/22/25 13:37 Room Air* 0 21 Exam General: Awake, alert, no acute distress HEENT: Conjunctival pallor present Neck: No JVD Cardiovascular: Regular rate and rhythm, systolic murmur Lungs: Bibasilar crackles, no wheezing Abdomen: Soft, non-tender, non-distended Extremities: Trace bilateral lower extremity edema Neurologic: Alert and oriented, no focal deficits Skin: Pale, warm, intact Labs/Xrays Labs Test 10/22/25 14:10 10/22/25 13:00 Range/Units White Blood Count 7.6 4.4-10.8 10^3/uL Red Blood Count 2.59 L 4.0-5.20 10^6/uL Hemoglobin 6.8 *L 12.2-16.2 g/dL Hematocrit 21.7 L 36.0-46.0 % Mean Corpuscular Volume 83.9 80.0-100.0 fL Mean Corpuscular Hemoglobin 26.1 L 28.0-32.0 pg Mean Corpuscular Hemoglobin Concent 31.1 L 32.0-36.0 g/dL Red Cell Distribution Width 19.3 H 11.8-14.3 % Platelet Count 334 140-450 10^3/uL Mean Platelet Volume 8.8 6.9-10.8 fL Neutrophils (%) (Auto) 70.0 37.0-80.0 % Lymphocytes (%) (Auto) 12.0 10.0-50.0 % Monocytes (%) (Auto) 12.8 H 0.0-12.0 % Eosinophils (%) (Auto) 3.9 0.0-7.0 % Basophils (%) (Auto) 1.3 0.0-2.0 % Neutrophils # (Auto) 5.3 1.6-8.6 10 ^3/uL Lymphocytes # (Auto) 0.9 0.4-5.4 10 ^3/uL Monocytes # (Auto) 1.0 0-1.3 10 ^3/uL Eosinophils # (Auto) 0.3 0-0.8 10 ^3/uL Basophils # (Auto) 0.1 0-0.2 10 ^3/uL Nucleated Red Blood Cells 0.1 % Platelet Estimate Adequate Schistocytes Few Sodium Level 140 136-145 mmol/L Potassium Level 4.3 3.5-5.1 mmol/L Chloride Level 106 98-107 mmol/L Carbon Dioxide Level 23 20-31 mmol/L Anion Gap 11 5-15 Blood Urea Nitrogen 24 H 9-23 mg/dL Creatinine 1.79 H 0.550-1.02 mg/dL Glomerular Filtration Rate Calc 28 >90 mL/min BUN/Creatinine Ratio 13.4 10.0-20.0 Serum Glucose 101 74-106 mg/dL Lactic Acid Level 1.7 0.4-2.0 mmol/L Calcium Level 9.3 8.7-10.4 mg/dL Total Bilirubin 0.4 0.2-1.0 mg/dL Aspartate Amino Transferase (AST) 18 13-40 U/L Alanine Aminotransferase (ALT) 15 7-40 U/L Alkaline Phosphatase 69 46-116 U/L B-Type Natriuretic Peptide 394.76 0-100 pg/mL Total Protein 7.1 5.7-8.2 g/dL Albumin 4.4 3.2-4.8 g/dL SEPSIS Sepsis Screen Date sepsis recognized/suspect: Oct 22, 2025 Time Sepsis recognized/suspect: 1223 Recent Procedure: No On Antibiotic Therapy: No Respiratory Rate >20: No Heart Rate >90: No Temp<36 C (96.8 F) or >38.3 C: No SBP <90 or MAP <65 mmHG: No New Acute Mental Status Change: No Is the patient on CPAP, BIPAP,: No Physician Orders Electrocardigram (10/22/25 12:23) H[employer]head Salvage (10/22/25 ) Chest Portable (10/22/25 12:28) Troponin-I Hs (10/22/25 13:28) Troponin-I Hs (10/22/25 15:28) Type And Screen (10/22/25 13:32) Packedcells -Active Bleeding (10/22/25 13:32) Admit (10/22/25 14:27) Code Status (10/22/25 14:27) Vital Signs .PER UNIT PROTOCOL (10/22/25 14:27) Review Orders With Adm.Md (10/22/25 14:27) Consistent Carb([facility])Diabetes (10/22/25 Dinner) Notify Md Of Changes From Base (10/22/25 14:27) Advance Directive (10/22/25 14:27) Urinalysis (10/22/25 14:27) Lipid Panel (10/22/25 14:27) Patient Condition (10/22/25 14:27) Allergies (10/22/25 14:27) Drug Screen (10/22/25 14:27) Hemoglobin A1c (10/22/25 14:27) Oxygen By Nasal Cannula (10/22/25 14:27) Stat Ekg For Chest Pain (10/22/25 14:27) Notify Md Of Changes From Base (10/22/25 14:27) Locomotive Switch Operator For 24 Hours (10/22/25 14:27) Emergency Dysrhythmia Protocol (10/22/25 14:27) Rhythm Strips Once Every Shift (10/22/25 14:27) Pantoprazole (Protonix) (10/22/25 22:00) Furosemide Injection (Lasix Injection) (10/23/25 10:00) Albuterol Medneb (Ventolin Medneb) (10/22/25 22:00) Ipratropium Medneb (Atrovent Medneb) (10/22/25 22:00) Morphine Sulfate Injection (10/22/25 14:45) Vital Signs Date Time Temp Pulse Resp B/P (MAP) Pulse Ox O2 Delivery O2 Flow Rate FiO2 10/22/25 13:37 98.6 90 25 127/49 (75) 96 98.6 10/22/25 13:37 90 25 96 Room Air* 0 21 10/22/25 12:59 20 100 Room Air* 0 21 10/22/25 12:21 98.5 79 18 138/52 99 98.5 10/22/25 12:15 87 Laboratory Tests Test 10/22/25 13:00 Lactic Acid Level 1.7 mmol/L (0.4-2.0) White Blood Count 7.6 10^3/uL (4.4-10.8) Medications Medications Dose Ordered Sig/Payam Route Start Time Stop Time Status Last Admin Dose Admin Albuterol 2.5 mg ONCE ONCE NEB 10/22/25 12:30 10/22/25 12:31 DC 10/22/25 12:59 2.5 MG Ipratropium [place] 1 mg ONCE ONCE NEB 10/22/25 12:30 10/22/25 12:31 DC 10/22/25 12:59 1 MG Assessment/Plan Assessment/Plan # Acute blood loss anemia Severe anemia with hemoglobin 6.8, significantly below baseline of 910, in the setting of reported intermittent melena and chronic anticoagulation use, concerning for gastrointestinal bleeding. Two units of PRBCs initiated in the ED. Trend hemoglobin and hematocrit, maintain active type and screen, hold anticoagulation, start IV PPI, monitor stools, obtain iron studies, and consult gastroenterology for further evaluation. # Acute on chronic diastolic heart failure Evidence of volume overload with pulmonary vascular congestion on chest X-ray and elevated BNP, likely exacerbated by severe anemia and transfusion. Monitor volume status closely, strict intake and output, daily weights, cautious diuresis as tolerated, and telemetry monitoring. # Chronic kidney disease stage 4 Renal function consistent with baseline with creatinine 1.79 and GFR 28. Avoid n ephrotoxic agents, renally dose medications, and monitor renal function closely during transfusion and diuresis. # Atrial fibrillation Chronic atrial fibrillation previously on anticoagulation, currently held due to concern for active gastrointestinal bleeding. Continue rate control and telemetry monitoring. # Type 2 myocardial infarction Mild troponin elevation without ischemic symptoms, likely demand-mediated in the setting of severe anemia and heart failure. Continue telemetry and trend troponin levels. # Chronic obstructive pulmonary disease No evidence of acute exacerbation. Continue duo nebs and monitor respiratory status. # Hypertension Blood pressure with low diastolic readings on admission. Hold antihypertensive medications for now and reassess as hemodynamics stabilize. Case discussed with Dr Valenzuela Full code Plan discussed with: Patient, Other (rn) My Orders Orders - JESSICA WONG Procedure Category Date Status Time Admit ADMIT 10/22/25 Transmitted 14:27 Code Status CODE 10/22/25 Transmitted 14:27 Vital Signs [facility] 10/22/25 In Process 14:27 Review Orders With MOODY 10/22/25 In Process Adm. 14:27 Consistent DIET 10/22/25 [facility]Diabetes Dinner Notify Of Changes MO[facility] 10/22/25 In Process From Base 14:27 Advance Directive [facility] 10/22/25 In Process 14:27 Urinalysis LAB 10/22/25 Logged 14:27 Lipid Panel LAB 10/22/25 Logged 14:27 Patient Condition ORDERS 10/22/25 Transmitted 14:27 Allergies [facility] 10/22/25 In Process 14:27 Drug Screen LAB 10/22/25 Logged 14:27 Hemoglobin A1c LAB 10/22/25 Logged 14:27 Oxygen By Nasal RT 10/22/25 Transmitted Cannula 14:27 Stat Ekg For Chest [facility] 10/22/25 In Process Pain 14:27 Notify Of Changes [facility]ODY 10/22/25 In Process From Base 14:27 Locomotive Switch Operator For MOODY 10/22/25 In Process 24 Hours 14:27 Emergency Dysrhythmia [facility] 10/22/25 In Process Protocol 14:27 Rhythm Strips Once [facility]ODY 10/22/25 In Process Every Shift 14:27 Pantoprazole PHA 10/22/25 In Process (Protonix) 22:00 Furosemide Injection PHA 10/23/25 In Process (Lasix Injection) 10:00 Albuterol Medneb PHA 10/22/25 In Process (Ventolin Medneb) 22:00 Ipratropium Medneb PHA 10/22/25 In Process (Atrovent Medneb) 22:00 Morphine Sulfate PHA 10/22/25 In Process Injection 14:45 Date of Service: Oct 22, 2025 Billing Provider: TOOTIE VALENZUELA MD Common Visit Codes: 39545-RTONXBP INP/OBS CARE (HIGH) Secondary Visit Codes: [id number] CARE PLAN 30 MINUTES JESSICA WONG RESIDENT Oct 22, 2025 14:45
[2025-10-22] MEDS: FUROSEMIDE 40 MG/4 ML VIAL IV ONE (15:00)
[2025-10-22] MEDS: methylPREDNISolone SOD SUCC 125 MG/2 ML VL IV ONE (15:01)
[2025-10-22 15:08] LABS: Triglycerides 66 mg/dL (< 150)
[2025-10-22 15:10] LABS: Cholesterol 143 mg/dL (< 200); HDL Cholesterol 52 mg/dL (40-59)
[2025-10-22 16:33] LABS: Iron 15.0 ug/dL (50-170); Total Iron Binding Capacity 410.0 ug/dL (250-425)
[2025-10-22] MEDS: ALBUTEROL SULF 2.5 MG/0.5ML(0.5%) NEB SOLN NEB SCH (20:04)
[2025-10-22] MEDS: IPRATROPIUM BROM 0.5 MG/2.5ML INH SOL NEB SCH (20:04)
[2025-10-22] MEDS: PANTOPRAZOLE 40 MG/10 ML VIAL INJ IV SCH (21:39)
[2025-10-22 22:11] LABS: Hemoglobin 8.1 g/dL (12.2-16.2)
[2025-10-22 22:12] LABS: Hematocrit 25.7 % (36.0-46.0)
[2025-10-23] VITALS (18 sets, daily range): BP systolic 115–157; BP diastolic 62–74; PULSE 69–82; RESP 16–20; TEMP 97.6–98.7; O2SAT 90–100
--- NOTE | 2025-10-23 06:03 | DVH ---
CHEST RADIOGRAPH Indication: dyspnea Technique: Single frontal view of the chest was obtained COMPARISON: XY CHEST PORTABLE on DOS: 10/22/25, XY CHEST PORTABLE on DOS: 08/13/25, XY CHEST PORTABLE on DOS: 08/10/25, XY CHEST PORTABLE on DOS: 08/09/25, XY CHEST PORTABLE on DOS: 06/30/25 FINDINGS: Lines and Tubes: Left chest wall pacemaker. Lungs: Diffuse increased interstitial prominence. Pleura: No effusion. No pneumothorax. Cardiomediastinal contours: Cardiomegaly. Bones: Unremarkable IMPRESSION: Cardiomegaly with probable mild pulmonary vascular congestion, unchanged.
[2025-10-23 07:15] LABS: Hematocrit 28.2 % (36.0-46.0); Hemoglobin 9.1 g/dL (12.2-16.2); Mean Corpuscular Hemoglobin 26.5 pg (28.0-32.0); Mean Corpuscular Volume 82.2 fL (80.0-100.0); Nucleated Red Blood Cells % 0.3 %
[2025-10-23 07:29] LABS: Alanine Aminotransferase 13 U/L (7-40); Alkaline Phosphatase 72 U/L (46-116); Anion Gap 11 (5-15); BUN/Creatinine Ratio 12.5 (10.0-20.0); Calcium 9.4 mg/dL (8.7-10.4); Carbon Dioxide 24 mmol/L (20-31); Chloride 106 mmol/L (98-107); Potassium 4.4 mmol/L (3.5-5.1); Sodium 141 mmol/L (136-145); Total Protein 7.1 g/dL (5.7-8.2)
[2025-10-23 07:30] LABS: Albumin 4.4 g/dL (3.2-4.8)
[2025-10-23 07:31] LABS: Bilirubin, Total 0.8 mg/dL (0.2-1.0); Blood Urea Nitrogen 23 mg/dL (9-23); Glucose 152 mg/dL (74-106)
[2025-10-23] MEDS: FUROSEMIDE 40 MG/4 ML VIAL IV SCH (09:23)
[2025-10-23] MEDS: PANTOPRAZOLE 80 MG in SODIUM CHL 0.9% 100 ML IV ONE (09:45)
[2025-10-23 09:53] LABS: Urine Protein, UAD Negative (Negative)
[2025-10-23 10:06] LABS: Amphetamine Screen, Urine Neg (NEGATIVE)
[2025-10-23 10:08] LABS: Barbiturate Scree,Urine Neg (NEGATIVE); Benzodiazephine Screen, Urine Neg (NEGATIVE); Cannabinoid Screen, Urine Neg (NEGATIVE); Cocaine Screen, Urine Neg (NEGATIVE); Opiate Scree,Urine Neg (NEGATIVE); Phencyclidine Screen, Urine Neg (NEGATIVE)
[2025-10-23 10:08] LABS: Wright Stain Ready for Review
[2025-10-23 10:10] LABS: Magnesium 2.5 mg/dL (1.6-2.6)
--- NOTE | 2025-10-23 10:20 | DVHINCON2 ---
Date of service: Oct 23, 2025 Referring Physician ANTONIO Reason for Consultation Severe anemia History of Present Illness The patient is a 85-year-old female with hypertension, COPD, chronic kidney disease, history of TAVR, atrial fibrillation, CHF, history of VA, on anticoagulation admitted with shortness of breath, dyspnea on exertion, found to have severe anemia. GI consultation was obtained. Patient denies gross ble eding, abdominal pain, dysphagia, hematemesis, hematochezia, or recent change in medications. She is on anticoagulation for heart disease. She has a history of the TAVR. Patient states that she had a colonoscopy several years ago and did not recall the results but noted that there were no large polyps or tumors. Patient denies any recent change in bowel habits or significant hemorrhoids. She denies any aspirin or NSAID use. GI consultation was obtained for evaluation. Past Medical History As above Past Surgical History History of TAVR Family History: Hypertension G8 MOTHER G8 FATHER 19 CHILD Family History Denies GI diseases or malignancies Social History Prior tobacco use no alcohol or recreational drug abuse Allergies: Coded Allergies: Acetaminophen (Verified Allergy, Unknown, 08/09/25) Hydrocodone (Verified Allergy, Unknown, 08/09/25) Tramadol (Verified Adverse Reaction, Unknown, 06/18/25) Home Meds Reported Medications Atorvastatin Calcium (Lipitor) 40 Mg Tab, 1 TAB PO DAILY for 31 Days, #31 08/10/25 Sildenafil Citrate (Sildenafil Citrate) 20 Mg Tab, 1 TAB PO TID for 31 Days, #62 08/10/25 Amiodarone HCl (Amiodarone HCl) 200 Mg Tab, 1 TAB PO BID for 31 Days, #62 08/10/25 Carvedilol (Carvedilol) 3.125 Mg Tab, 1 TAB PO BID for 31 Days, #62 08/10/25 Colchicine (Colchicine) 0.6 Mg Cap, 1 CAP PO DAILY for 14 Days, #14 08/10/25 Montelukast Sodium (MONTELUKAST SODIUM) 10 Mg Tab, 1 TAB PO DAILY for 30 Days, #30 06/14/25 Furosemide (Furosemide) 40 Mg Tab, 1 TAB PO DAILY for 30 Days, #30 06/14/25 Allopurinol (Allopurinol) 100 Mg Tab, 1 TAB PO DAILY for 30 Days, #30 06/12/25 Pantoprazole Sodium Sesquihydr (Protonix) 40 Mg Tab, 1 TAB PO QAM for GERD 06/20/23 Apixaban Base (ELIQUIS) 2.5 Mg Tab, 1 TAB PO BID for CAD 06/20/23 Albuterol Sulfate (Albuterol Sulfate Hfa) 108 Mcg/Act Aer, 2 PUFF IN QID PRN for SHORTNESS OF BREATH 06/20/23 Current Medications Current Medications Medications (Trade) Dose Ordered Sig/Payam Route PRN Reason Start Time Stop Time Status Last Admin Morphine Sulfate 2 mg Q4HPRN PRN IV SEVERE PAIN (7-10 PAIN SCALE) 10/22/25 14:30 10/22/25 14:44 DC Pantoprazole Sodium (Protonix) 40 mg BID IV 10/22/25 22:00 10/23/25 09:43 DC 10/23/25 09:13 Furosemide (Lasix Injection) 40 mg DAILY IV 10/23/25 10:00 10/23/25 09:43 DC 10/23/25 09:23 Albuterol (Ventolin Medneb) 2.5 mg Q8HR NEB 10/22/25 22:00 10/23/25 06:52 Ipratropium [place] (Atrovent Medneb) 0.5 mg Q8HR NEB 10/22/25 22:00 10/23/25 06:52 Morphine Sulfate 2 mg Q4HPRN PRN IV SEVERE PAIN (7-10 PAIN SCALE) 10/22/25 14:45 Iron Sucrose 110 ml @ 110 mls/hr DAILY@1200 IV 10/23/25 12:00 10/27/25 11:59 Pantoprazole Sodium 50 ml @ 10 mls/hr Q5H IV 10/23/25 09:45 Review of Systems Review of systems as per HPI Vital Signs Vital Signs Date Time Temp Pulse Resp B/P (MAP) Pulse Ox O2 Delivery O2 Flow Rate FiO2 10/23/25 09:23 134/72 10/23/25 08:51 98.1 81 17 99 98.1 10/23/25 08:12 Nasal Cannula* 2 28 Physical Exam General: Alert and oriented x4 sitting up in bed, HEENT: NC/AT EOMI PERRLA-O/P clear Heart: Regular rate irregular rhythm Lungs: Crackles at bases bilaterally Abdomen: Soft nontender nondistended normoactive bowel sounds Extremities: No clubbing cyanosis or edema Neuro: Cranial nerves 2-12 grossly intact moves all four extremity Labs/Diagnostic Data Labs Test 10/23/25 10:00 10/23/25 06:22 10/22/25 16:00 10/22/25 14:10 Range/Units Urine Color Light-yellow Yellow Urine Clarity Clear Clear Urine pH 6.0 5.0-9.0 Urine Specific [place] 1.016 1.001-1.035 Urine Protein Negative Negative Urine Ketones Negative Negative Urine Blood Negative Negative /uL Urine Nitrite Negative Negative Urine Bilirubin Negative Negative Urine Urobilinogen Normal Negative mg/dL Urine Leukocyte Esterase Negative Negative /uL Urine RBC 1 0 - 4 /hpf Urine Microscopic WBC < 1 0-5 /HPF Urine Squamous Epithelial Cells Few <5 /hpf Urine Bacteria None seen None Seen /hpf Urine Hyaline Casts Few 0 - 2 /lpf Urine Mucus Few None Seen Urine Glucose Normal Normal mg/dL Urine Opiates Screen Neg NEGATIVE Urine Fentanyl Screen Neg NEGATIVE Urine Barbiturates Screen Neg NEGATIVE Urine Phencyclidine Screen Neg NEGATIVE Urine Amphetamines Screen Neg NEGATIVE Urine Benzodiazepines Screen Neg NEGATIVE Urine Cocaine Screen Neg NEGATIVE Urine Cannabinoids Screen Neg NEGATIVE White Blood Count 5.4 # 4.4-10.8 10^3/uL Red Blood Count 3.43 L 4.0-5.20 10^6/uL Hemoglobin 9.1 L 12.2-16.2 g/dL Hematocrit 28.2 L 36.0-46.0 % Mean Corpuscular Volume 82.2 80.0-100.0 fL Mean Corpuscular Hemoglobin 26.5 L 28.0-32.0 pg Mean Corpuscular Hemoglobin Concent 32.3 32.0-36.0 g/dL Red Cell Distribution Width 18.7 H 11.8-14.3 % Platelet Count 311 140-450 10^3/uL Mean Platelet Volume 9.1 6.9-10.8 fL Neutrophils (%) (Auto) 94.3 H 37.0-80.0 % Lymphocytes (%) (Auto) 4.0 L 10.0-50.0 % Monocytes (%) (Auto) 1.4 0.0-12.0 % Eosinophils (%) (Auto) 0.0 0.0-7.0 % Basophils (%) (Auto) 0.3 0.0-2.0 % Neutrophils # (Auto) 5.1 1.6-8.6 10 ^3/uL Lymphocytes # (Auto) 0.2 L 0.4-5.4 10 ^3/uL Monocytes # (Auto) 0.1 0-1.3 10 ^3/uL Eosinophils # (Auto) 0 0-0.8 10 ^3/uL Basophils # (Auto) 0 0-0.2 10 ^3/uL Nucleated Red Blood Cells 0.3 % Reticulocyte Count (auto) 1.71 H 0.5-1.5 % Sodium Level 141 136-145 mmol/L Potassium Level 4.4 3.5-5.1 mmol/L Chloride Level 106 98-107 mmol/L Carbon Dioxide Level 24 20-31 mmol/L Anion Gap 11 5-15 Blood Urea Nitrogen 23 9-23 mg/dL Creatinine 1.84 H 0.550-1.02 mg/dL Glomerular Filtration Rate Calc 27 >90 mL/min BUN/Creatinine Ratio 12.5 10.0-20.0 Serum Glucose 152 H 74-106 mg/dL Calcium Level 9.4 8.7-10.4 mg/dL Phosphorus Level 3.8 2.4-5.1 mg/dL Magnesium Level 2.5 1.6-2.6 mg/dL Total Bilirubin 0.8 0.2-1.0 mg/dL Aspartate Amino Transferase (AST) 20 13-40 U/L Alanine Aminotransferase (ALT) 13 7-40 U/L Alkaline Phosphatase 72 46-116 U/L Total Protein 7.1 5.7-8.2 g/dL Albumin 4.4 3.2-4.8 g/dL Hemoglobin A1c 5.8 H <5.7 % A1C Iron Level 15 L 50-170 ug/dL Total Iron Binding Capacity 410 250-425 ug/dL Percent Iron Saturation 3.7 L 15-50 % Ferritin 15.3 10-291 ng/mL Troponin I High Sensitivity 47 *H </=34 ng/L Triglycerides Level 66 < 150 mg/dL Cholesterol Level 143 < 200 mg/dL LDL Cholesterol 80 < 100 mg/dL HDL Cholesterol 52 40-59 mg/dL Test 10/22/25 13:00 Range/Units Platelet Estimate Adequate Schistocytes Few Lactic Acid Level 1.7 0.4-2.0 mmol/L B-Type Natriuretic Peptide 394.76 0-100 pg/mL Assessment Symptomatic anemia likely multifactorial CHF COPD Anticoagulant use History of TAVR History atrial fibrillation Problems(with codes): (1) Symptomatic anemia (2) Dyspnea (3) Acute respiratory distress (4) CHF (congestive heart failure) (5) [id number] kidney injury (6) Shortness of breath Plan/Recommendation 1. Follow H&H and transfuse as needed, caution with transfusion due to CHF 2. Caution with anticoagulation 3. Diuresis 4. Follow up with CT scan of the abdomen pelvis 5. Labs were for any signs of bleeding 6. Hold off on any endoscopy and colonoscopy at this time 7. Consider EGD and/or colonoscopy if the patient has optimized from a cardiac perspective 8. We will follow up Plan discussed with: Patient VIVIANA SANCHEZ MD Oct 23, 2025 10:20
[2025-10-23 10:24] LABS: INR 1.04 (0.9-1.15); Partial Thromboplastin Time 28.2 SEC (24.5-34.5); Prothrombin Time 11.0 sec (9.3-11.8)
--- NOTE | 2025-10-23 10:38 | DVH ---
EXAM DESCRIPTION: CT CT AB PEL WO CON-NO ORAL OR IV CLINICAL HISTORY: GI bleed COMPARISON: None TECHNIQUE: CT abdomen and pelvis without IV contrast was performed. Coronal and sagittal MPR images were generated.CTDI/ DLP = 27.71 / 1204.51 Dose reduction technique with one or more of the following methods was performed: Automated exposure control, adjustment of the mA and/or kV according to patient size, use of iterative reconstruction technique FINDINGS: Lower chest: Clear lung bases. Liver: Homogenous in attenuation. . Biliary: No calcified gallstones. Dilated common bile duct measuring up to 1.4 cm. Pancreas: No fat stranding or focal lesion. Spleen: Normal in size.. Adrenal glands: No nodularity. Kidneys: No nephrolithiasis. No hydroureteronephrosis. . Bladder: Underdistended, limiting evaluation. Reproductive organs: Status post hysterectomy. No adnexal masses. Bowel: No bowel wall thickening or dilatation. Colonic diverticulosis without evidence of diverticulitis. . Peritoneum: No free fluid. No free air. Vessels: Normal caliber abdominal aorta. Severe atherosclerotic calcifications.. Lymph nodes: No suspicious lymph nodes. Soft tissues: Unremarkable. . Osseous structures: No acute fracture or subluxation. No suspicious osseous lesions. Degenerative changes of the visualized thoracolumbar spine. IMPRESSION: 1. Dilated common bile duct. Recommend further evaluation with MRCP. 2. Active gastrointestinal hemorrhage cannot be evaluated for on this study due to lack of IV contrast. Colonic diverticulosis without evidence of diverticulitis. 3. Severe atherosclerotic vascular disease.
[2025-10-23] MEDS: IRON SUCROSE COMPLEX 110 ML IV SCH (12:14)
[2025-10-23] MEDS: PANTOPRAZOLE 40mg/50ML NS AE 50 ML IV SCH (12:14)
[2025-10-23] MEDS ORDERED: BUSP10TA90 PO (13:23)
--- NOTE | 2025-10-23 14:25 | DVHPNRES ---
Progress Note Date Seen: Oct 23, 2025 Resident Creating Document: ANGELO ALEXANDER RESIDENT Medical Necessity Reason Pt with a Central, PICC or Fol: No Subjective Review of Systems PAtient seen and examined at bedside, Currently has no new complaint Consulted GI, nephrology and cardiology due to complex past medical history. Objective vital signs Vital Sign Date Time Temp Pulse Resp B/P (MAP) Pulse Ox O2 Delivery O2 Flow Rate FiO2 10/23/25 13:30 97.6 71 17 141/74 (96) 99 97.6 10/23/25 10:05 Nasal Cannula* 2 28 Total Intake and Output 10/22/25 10/22/25 10/23/25 15:00 23:00 07:00 Intake Total 900 ml 1460 ml Output Total 600 ml Balance 900 ml 860 ml medications Current Medications Medications Dose Ordered Sig/Payam Route Start Time Stop Time Status Last Admin Dose Admin Albuterol 2.5 mg Q8HR NEB 10/22/25 22:00 10/23/25 06:52 2.5 MG Ipratropium [place] 0.5 mg Q8HR NEB 10/22/25 22:00 10/23/25 06:52 0.5 MG Morphine Sulfate 2 mg Q4HPRN PRN IV 10/22/25 14:45 Iron Sucrose 110 ml @ 110 mls/hr DAILY@1200 IV 10/23/25 12:00 10/27/25 11:59 10/23/25 12:14 110 MLS/HR Pantoprazole Sodium 50 ml @ 10 mls/hr Q5H IV 10/23/25 09:45 10/23/25 12:14 10 MLS/HR Methylprednisolone Sodium Succinate 40 mg BID IV 10/23/25 22:00 UNV Examination Patient lying in bed, in no acute distress General: Lucid, afebrile, mucosae are moist Cardiovascular: Normal S1 and S2. No murmurs, gallops or rubs Respiratory: Normal ventilation mechanics. Diffuse wheezing in bilateral lung ghotra. Abdomen: Soft, nontender, no organomegaly, normal bowel sounds MSK/skin: Mobilizes 4 limbs. Skin is dry and warm Neurological: Oriented in 3 spheres. No motor no sensitive deficits. Pupils are isocoric and reactive laboratory and microbiology Laboratory Tests 10/23/25 06:22 Test 10/23/25 06:22 Range/Units Serum Glucose 152 H 74-106 mg/dL Problem List/Assessment/Plan Problem List/Assessment/Plan # Acute blood loss anemia # Probable GI bleed # Severe normocytic anemia with iron deficiency Severe anemia with hemoglobin 6.8, significantly below baseline of 910, in the setting of reported intermittent melena and chronic anticoagulation use, concerning for gastrointestinal bleeding. Two units of PRBCs initiated in the ED. Trend hemoglobin and hematocrit, maintain active type and screen, hold anticoagulation, start IV PPI, monitor stools, obtain iron studies, and consult gastroenterology for further evaluation. GI on board: Requested evaluation by cardiology (patient has untreated severe mitral stenosis # Acute on chronic diastolic heart failure # Paroxysmal Atrial fibrillation (CHADS VASC 5) secondary hypercoagulability state # Severe mitral stenosis # NSTEMI probable typr II # History of aortic stenosis s/p TAVR # Non Affiliated arrhythmia s/p PPM Evidence of volume overload with pulmonary vascular congestion on chest X-ray and elevated BNP, likely exacerbated by severe anemia and transfusion. Monitor volume status closely, strict intake and output, daily weights, cautious diuresis as tolerated, and telemetry monitoring. Avoid blood thinners due to high bleesing risk # Chronic kidney disease stage IV Renal function consistent with baseline with creatinine 1.79 and GFR 28. Avoid nephrotoxic agents, renally dose medications, and monitor renal function closely during transfusion and diuresis. # COPD exacerbation No evidence of acute exacerbation. Continue duo nebs and monitor respiratory status. Indicated IV steroids, bronchodilators, and empiric Iv antibiotics (Azithromycin) # Hypertension Blood pressure with low diastolic readings on admission. Hold antihypertensive medications for now and reassess as hemodynamics stabilize. Goals of care discussed with patient for over 18 minutes: Full code status Discussed plan with Dr Valenzuela, patient and nurses: Currently on telemetry status. Indicated medical therapy. Pending cardiology evaluation for eventual GI procedure. Plan discussed with: Patient, Other (Nurses) My Orders My Orders Orders - ANGELO ALEXANDER RESIDENT Procedure Category Date Status Time Iron Sucrose Complex PHA 10/23/25 In Process (Venofer) 12:00 Npo (Nothing By DIET 10/23/25 Transmitted Mouth) Diet Lunch Pantoprazole PHA 10/23/25 In Process 40mg/50ml Ns Ae 09:45 Electrocardigram EKG 10/23/25 Logged 09:34 Stool Occult Blood LAB 10/23/25 Logged 09:34 Haptoglobin LAB 10/23/25 In Process 09:34 Folate (Folic Acid) LAB 10/23/25 In Process 09:34 Vitamin D, 25-Hydroxy LAB 10/23/25 In Process 09:34 Vitamin B12 LAB 10/23/25 In Process 09:34 Ct Ab Pel Wo Con-No CT 10/23/25 Resulted Oral Or Iv 09:43 *Dr. [facility] CONS 10/23/25 Transmitted -[place] 14:17 Methylprednisolone PHA 10/23/25 Logged Sod Succ (Solu Medrol 22:00 Methylprednisolone PHA 10/23/25 Logged Sod Succ (Solu Medrol 14:30 * Cardiology Consult CONS 10/23/25 Transmitted 14:21 Visit Coding STANDARD RES Billing Provider: TOOTIE VALENZUELA MD Date of Service if different f: Oct 23, 2025 Common Visit Codes: [id number] INP/OBS CARE(HIGH) ANGELO ALEXANDER RESIDENT Oct 23, 2025 14:25
[2025-10-23] MEDS: methylPREDNISolone SOD SUCC 40 MG/ML VL IV ONE (15:18)
--- NOTE | 2025-10-23 17:45 | DVH ---
INDICATION: Evaluated dilated CBD TECHNIQUE: Multiple real-time sonographic images of the abdomen were obtained. COMPARISON: US GROIN / INGUINAL REGION BILAT on DOS: 12/29/24, US ABDOMEN LIMITED on DOS: 02/06/23 FINDINGS: The liver is homogenous in echogenicity. The liver measures 14 cm. No intrahepatic biliary ductal dilatation is noted. The gallbladder wall measures 0.17 cm and is unremarkable. No gallstones or sludge is seen. The common duct measures 0.67 cm and is mildly dilated. No pericholecystic fluid is noted. The right kidney measures 8.1 cm. No hydronephrosis. The pancreas is not well visualized due to obscuration from bowel gas. The visualized portions of the IVC and aorta are grossly unremarkable. IMPRESSION: 1. Normal exam of the abdomen. 2. Gallbladder appears normal with mildly dilated common bile duct. 3. Liver measures 14 cm in the parenchyma is homogeneous.
[2025-10-23] MEDS: methylPREDNISolone SOD SUCC 40 MG/ML VL IV SCH (21:39)
[2025-10-24] VITALS (11 sets, daily range): BP systolic 126–149; BP diastolic 60–79; PULSE 68–84; RESP 16–20; TEMP 97.5–98.2; O2SAT 94–100
[2025-10-24 08:05] LABS: Nucleated Red Blood Cells % 0.4 %
[2025-10-24 08:09] LABS: Hematocrit 28.1 % (36.0-46.0); Hemoglobin 8.9 g/dL (12.2-16.2); Mean Corpuscular Hemoglobin 26.1 pg (28.0-32.0); Mean Corpuscular Volume 82.1 fL (80.0-100.0)
[2025-10-24 08:10] LABS: Anion Gap 11 (5-15); Calcium 9.4 mg/dL (8.7-10.4); Carbon Dioxide 25 mmol/L (20-31); Chloride 106 mmol/L (98-107); Potassium 4.1 mmol/L (3.5-5.1); Sodium 142 mmol/L (136-145)
[2025-10-24 08:16] LABS: BUN/Creatinine Ratio 15.3 (10.0-20.0)
[2025-10-24 08:17] LABS: Blood Urea Nitrogen 28 mg/dL (9-23); Glucose 127 mg/dL (74-106); Magnesium 2.6 mg/dL (1.6-2.6)
[2025-10-24] MEDS ORDERED: ACETYLCYSTEINE 10 %(100MG/ML) SOL 4ML NEB SCH (10:00)
[2025-10-24] MEDS: PANTOPRAZOLE 40 MG/10 ML VIAL INJ IV SCH (11:02)
--- NOTE | 2025-10-24 12:18 | DVHINCON2 ---
Date of service: Oct 24, 2025 Referring Physician Carolynn Reason for Consultation CKD with anemia History of Present Illness 85-year-old female with past medical history of CKD stage IV, hypertension, heart failure, aortic and mitral stenosis, A-fib, COPD, and gout. Patient presented with chief complaint of worsening dyspnea with exertion, and low hemoglobin per outpatient lab draw. Patient reports she was sent by her physician due to low hemoglobin. Patient is status post blood transfusion. On arrival patient presented with hemoglobin 6.8, creatinine 1.79, BUN 24, GFR 28, NA 140, K+ 4.3. Last GFR 21 from August 2025. Patient denies NSAID use. Reports blood pressures are well-controlled. Follows up outpatient with Dr. Casiano. Received consult for CKD with anemia. Past Medical History CKD stage IV, hypertension, heart failure, aortic and mitral stenosis, A-fib, COPD, and gout. Allergies: Coded Allergies: Acetaminophen (Verified Allergy, Unknown, 08/09/25) Hydrocodone (Verified Allergy, Unknown, 08/09/25) Tramadol (Verified Adverse Reaction, Unknown, 06/18/25) Home Meds Reported Medications Buspirone Hcl (Buspirone Hcl) 10 Mg Tab, 10 MG PO Q12HR for 30 Days, MG 10/23/25 Atorvastatin Calcium (Lipitor) 40 Mg Tab, 1 TAB PO DAILY for 31 Days, #31 08/10/25 Sildenafil Citrate (Sildenafil Citrate) 20 Mg Tab, 1 TAB PO TID for 31 Days, #62 08/10/25 Amiodarone HCl (Amiodarone HCl) 200 Mg Tab, 1 TAB PO BID for 31 Days, #62 08/10/25 Carvedilol (Carvedilol) 3.125 Mg Tab, 1 TAB PO BID for 31 Days, #62 08/10/25 Colchicine (Colchicine) 0.6 Mg Cap, 1 CAP PO DAILY for 14 Days, #14 08/10/25 Montelukast Sodium (MONTELUKAST SODIUM) 10 Mg Tab, 1 TAB PO DAILY for 30 Days, #30 06/14/25 Furosemide (Furosemide) 40 Mg Tab, 1 TAB PO DAILY for 30 Days, #30 06/14/25 Allopurinol (Allopurinol) 100 Mg Tab, 1 TAB PO DAILY for 30 Days, #30 06/12/25 Pantoprazole Sodium Sesquihydr (Protonix) 40 Mg Tab, 1 TAB PO QAM for GERD 06/20/23 Apixaban Base (ELIQUIS) 2.5 Mg Tab, 1 TAB PO BID for CAD 06/20/23 Albuterol Sulfate (Albuterol Sulfate Hfa) 108 Mcg/Act Aer, 2 PUFF IN QID PRN for SHORTNESS OF BREATH 06/20/23 Current Medications Current Medications Medications (Trade) Dose Ordered Sig/Payam Route PRN Reason Start Time Stop Time Status Last Admin Methylprednisolone Sodium Succinate (Solu Medrol) 40 mg BID IV 10/23/25 22:00 10/24/25 11:00 Acetylcysteine (Mucomyst Inahalation 10%) 100 mg Q4HR NEB 10/24/25 10:00 10/24/25 09:41 DC Guaifenesin/ Dextromethorphan (Robitussin-Dm Liquid) 10 ml Q4HP PRN PO FOR COUGH 10/24/25 09:30 Acetylcysteine (Mucomyst Inahalation 10%) 100 mg Q8HR NEB 10/24/25 14:00 Pantoprazole Sodium (Protonix) 40 mg Q12HR IV 10/24/25 10:45 10/24/25 11:02 Family History: Hypertension G8 MOTHER G8 FATHER 19 CHILD Review of Systems 10 systems reviewed and negative except as per HPI H&P Exam Vital Signs/I&O Vital Sign Date Time Temp Pulse Resp B/P (MAP) Pulse Ox O2 Delivery O2 Flow Rate FiO2 10/24/25 13:00 98.2 74 16 126/60 (82) 98 98.2 10/24/25 08:10 Nasal Cannula* 2 28 Intake and Output 10/23/25 10/24/25 19:00 07:00 Intake Total 980 ml 500 ml Balance 980 ml 500 ml Intake Oral 800 ml 500 ml IV Total 180 ml # Voids 4 2 Physical Exam Gen: Appears stated age, NAD HEENT: PERRLA, mucous membranes moist Heart: RRR, normal S1 and S2 Lungs: Bilateral air entry, no rales Abd: Normoactive bowel sounds, soft, nontender, nondistended. Ext: + edema Neuro: Alert and oriented x 4 Labs/Diagnostic Data Labs/Diagnostic Data Laboratory Tests Test 10/24/25 04:43 10/23/25 10:00 10/23/25 09:34 10/23/25 06:22 Range/Units White Blood Count 8.0 # 5.4 # 4.4-10.8 10^3/uL Red Blood Count 3.42 L 3.43 L 4.0-5.20 10^6/uL Hemoglobin 8.9 L 9.1 L 12.2-16.2 g/dL Hematocrit 28.1 L 28.2 L 36.0-46.0 % Mean Corpuscular Volume 82.1 82.2 80.0-100.0 fL Mean Corpuscular Hemoglobin 26.1 L 26.5 L 28.0-32.0 pg Mean Corpuscular Hemoglobin Concent 31.8 L 32.3 32.0-36.0 g/dL Red Cell Distribution Width 19.0 H 18.7 H 11.8-14.3 % Platelet Count 331 311 140-450 10^3/uL Mean Platelet Volume 9.6 9.1 6.9-10.8 fL Neutrophils (%) (Auto) 96.2 H 94.3 H 37.0-80.0 % Lymphocytes (%) (Auto) 2.3 L 4.0 L 10.0-50.0 % Monocytes (%) (Auto) 1.3 1.4 0.0-12.0 % Eosinophils (%) (Auto) 0.0 0.0 0.0-7.0 % Basophils (%) (Auto) 0.2 0.3 0.0-2.0 % Neutrophils # (Auto) 7.7 5.1 1.6-8.6 10 ^3/uL Lymphocytes # (Auto) 0.2 L 0.2 L 0.4-5.4 10 ^3/uL Monocytes # (Auto) 0.1 0.1 0-1.3 10 ^3/uL Eosinophils # (Auto) 0 0 0-0.8 10 ^3/uL Basophils # (Auto) 0 0 0-0.2 10 ^3/uL Nucleated Red Blood Cells 0.4 0.3 % Sodium Level 142 141 136-145 mmol/L Potassium Level 4.1 4.4 3.5-5.1 mmol/L Chloride Level 106 106 98-107 mmol/L Carbon Dioxide Level 25 24 20-31 mmol/L Anion Gap 11 11 5-15 Blood Urea Nitrogen 28 H 23 9-23 mg/dL Creatinine 1.83 H 1.84 H 0.550-1.02 mg/dL Glomerular Filtration Rate Calc 27 27 >90 mL/min BUN/Creatinine Ratio 15.3 12.5 10.0-20.0 Serum Glucose 127 H 152 H 74-106 mg/dL Calcium Level 9.4 9.4 8.7-10.4 mg/dL Phosphorus Level 3.6 3.8 2.4-5.1 mg/dL Magnesium Level 2.6 2.5 1.6-2.6 mg/dL Haptoglobin 167 41-333 mg/dL Urine Color Light-yellow Yellow Urine Clarity Clear Clear Urine pH 6.0 5.0-9.0 Urine Specific [place] 1.016 1.001-1.035 Urine Protein Negative Negative Urine Ketones Negative Negative Urine Blood Negative Negative /uL Urine Nitrite Negative Negative Urine Bilirubin Negative Negative Urine Urobilinogen Normal Negative mg/dL Urine Leukocyte Esterase Negative Negative /uL Urine RBC 1 0 - 4 /hpf Urine Microscopic WBC < 1 0-5 /HPF Urine Squamous Epithelial Cells Few <5 /hpf Urine Bacteria None seen None Seen /hpf Urine Hyaline Casts Few 0 - 2 /lpf Urine Mucus Few None Seen Urine Glucose Normal Normal mg/dL Urine Opiates Screen Neg NEGATIVE Urine Fentanyl Screen Neg NEGATIVE Urine Barbiturates Screen Neg NEGATIVE Urine Phencyclidine Screen Neg NEGATIVE Urine Amphetamines Screen Neg NEGATIVE Urine Benzodiazepines Screen Neg NEGATIVE Urine Cocaine Screen Neg NEGATIVE Urine Cannabinoids Screen Neg NEGATIVE Reticulocyte Count (auto) 1.71 H 0.5-1.5 % Prothrombin Time 11.0 9.3-11.8 sec Prothrombin Time INR 1.04 0.9-1.15 Activated Partial Thromboplast Time 28.2 24.5-34.5 SEC Total Bilirubin 0.8 0.2-1.0 mg/dL Aspartate Amino Transferase (AST) 20 13-40 U/L Alanine Aminotransferase (ALT) 13 7-40 U/L Alkaline Phosphatase 72 46-116 U/L Total Protein 7.1 5.7-8.2 g/dL Albumin 4.4 3.2-4.8 g/dL Thyroid Stimulating Hormone (TSH) 1.04 0.55-4.78 uIU/mL Test 10/22/25 21:58 10/22/25 16:00 10/22/25 14:10 10/22/25 13:00 Range/Units Hemoglobin 8.1 #L 6.8 *L 12.2-16.2 g/dL Hematocrit 25.7 #L 21.7 L 36.0-46.0 % Hemoglobin A1c 5.8 H <5.7 % A1C Iron Level 15 L 50-170 ug/dL Total Iron Binding Capacity 410 250-425 ug/dL Percent Iron Saturation 3.7 L 15-50 % Ferritin 15.3 10-291 ng/mL Troponin I High Sensitivity 47 *H 47 *H 41 *H </=34 ng/L Triglycerides Level 66 < 150 mg/dL Cholesterol Level 143 < 200 mg/dL LDL Cholesterol 80 < 100 mg/dL HDL Cholesterol 52 40-59 mg/dL White Blood Count 7.6 4.4-10.8 10^3/uL Red Blood Count 2.59 L 4.0-5.20 10^6/uL Mean Corpuscular Volume 83.9 80.0-100.0 fL Mean Corpuscular Hemoglobin 26.1 L 28.0-32.0 pg Mean Corpuscular Hemoglobin Concent 31.1 L 32.0-36.0 g/dL Red Cell Distribution Width 19.3 H 11.8-14.3 % Platelet Count 334 140-450 10^3/uL Mean Platelet Volume 8.8 6.9-10.8 fL Neutrophils (%) (Auto) 70.0 37.0-80.0 % Lymphocytes (%) (Auto) 12.0 10.0-50.0 % Monocytes (%) (Auto) 12.8 H 0.0-12.0 % Eosinophils (%) (Auto) 3.9 0.0-7.0 % Basophils (%) (Auto) 1.3 0.0-2.0 % Neutrophils # (Auto) 5.3 1.6-8.6 10 ^3/uL Lymphocytes # (Auto) 0.9 0.4-5.4 10 ^3/uL Monocytes # (Auto) 1.0 0-1.3 10 ^3/uL Eosinophils # (Auto) 0.3 0-0.8 10 ^3/uL Basophils # (Auto) 0.1 0-0.2 10 ^3/uL Nucleated Red Blood Cells 0.1 % Platelet Estimate Adequate Schistocytes Few Sodium Level 140 136-145 mmol/L Potassium Level 4.3 3.5-5.1 mmol/L Chloride Level 106 98-107 mmol/L Carbon Dioxide Level 23 20-31 mmol/L Anion Gap 11 5-15 Blood Urea Nitrogen 24 H 9-23 mg/dL Creatinine 1.79 H 0.550-1.02 mg/dL Glomerular Filtration Rate Calc 28 >90 mL/min BUN/Creatinine Ratio 13.4 10.0-20.0 Serum Glucose 101 74-106 mg/dL Lactic Acid Level 1.7 0.4-2.0 mmol/L Calcium Level 9.3 8.7-10.4 mg/dL Total Bilirubin 0.4 0.2-1.0 mg/dL Aspartate Amino Transferase (AST) 18 13-40 U/L Alanine Aminotransferase (ALT) 15 7-40 U/L Alkaline Phosphatase 69 46-116 U/L B-Type Natriuretic Peptide 394.76 0-100 pg/mL Total Protein 7.1 5.7-8.2 g/dL Albumin 4.4 3.2-4.8 g/dL Plan/Recommendation IMP 1. Hemodynamically mediated DESTINEE on CKD IV 2. Volume depleted state/acute blood loss- s/p blood transfusion repeat hgb 8.9 3. hx of HTN 4. hx of COPD 5. Hx of CHF REC - Stable kidney function known hx of CKD IV - Repeat chemistry panel, CBC in am - Agree with iron infusion - Renal ultrasound - Strict I&O's - Avoidance of NSAIDs, and IV contrast studies if able - GI on board - Will continue to follow Thank you for the consultation Plan discussed with: Patient [facility]ONCHO CERDA [facility] Oct 24, 2025 12:18
[2025-10-24] MEDS: ACETYLCYSTEINE 10 %(100MG/ML) SOL 4ML NEB SCH (14:00)
[2025-10-24] MEDS: guaiFENesin-DM 100/10mg/5ml SYR PO PRN (14:49)
[2025-10-24 15:21] LABS: Protein, Urine 20.4 mg/dL (1-14)
--- NOTE | 2025-10-24 16:58 | DVHPNRES ---
Progress Note Date Seen: Oct 24, 2025 Resident Creating Document: ARI HARVEY RESIDENT Medical Necessity Reason Pt with a Central, PICC or Fol: No Subjective Review of Systems Patient was seen today at bedside Labs and chart reviewed Hemoglobin stable 8.9 Persistently elevated serum creatinine 1.83, Patient was seen by Nephrology recommended uterine sodium, uterine creatinine, uterine protein, kidney ultrasound. Patient on full liquid diet Pending stool occult blood test CT abdomen and pelvis dilated common bile duct, active Gastroenterology hemorrhoids could not be ruled out, chronic diverticulosis without diverticulitis, Gastroenterology recommended for cardiac clearance for possible endoscopy, Also recommended for nephrology cleared NPO Herminio said she is not going to give patient is clearance for severe aortic stenosis. [facility] Dr. Ayala did not put any note as of yet -pending cardiology clearance, Dr. Thomas with the enterprise application developer for the patient, we will ask Dr. Bishop for cardiology clearance tomorrow Patient had IV dilatation of the left upper extremity, Doppler study negative for deep vein thrombosis, there is occlusive thrombosis in the medial branch of the basilic vein distal to the elbow on the left, warm compression Objective vital signs Vital Sign Date Time Temp Pulse Resp B/P (MAP) Pulse Ox O2 Delivery O2 Flow Rate FiO2 10/24/25 16:39 98.1 68 16 142/70 (94) 94 98.1 10/24/25 10:14 Nasal Cannula* 2 28 Total Intake and Output 10/23/25 10/23/25 10/24/25 15:00 23:00 07:00 Intake Total 110 ml 870 ml 500 ml Balance 110 ml 870 ml 500 ml medications Current Medications Medications Dose Ordered Sig/Payam Route Start Time Stop Time Status Last Admin Dose Admin Albuterol 2.5 mg Q8HR NEB 10/22/25 22:00 10/24/25 07:24 2.5 MG Ipratropium [place] 0.5 mg Q8HR NEB 10/22/25 22:00 10/24/25 07:24 0.5 MG Morphine Sulfate 2 mg Q4HPRN PRN IV 10/22/25 14:45 Iron Sucrose 110 ml @ 110 mls/hr DAILY@1200 IV 10/23/25 12:00 10/27/25 11:59 10/24/25 11:03 110 MLS/HR Methylprednisolone Sodium Succinate 40 mg BID IV 10/23/25 22:00 10/24/25 11:00 40 MG Guaifenesin/ Dextromethorphan 10 ml Q4HP PRN PO 10/24/25 09:30 10/24/25 14:59 10 ML Acetylcysteine 100 mg Q8HR NEB 10/24/25 14:00 Pantoprazole Sodium 40 mg Q12HR IV 10/24/25 10:45 10/24/25 11:02 40 MG Examination General examination- awake and alert, HEENT- PEERLA, no acute nasal discharge Cardiovascular- S1-S2 audible, rate and rhythm regular, no murmur Respiratory- CTAB, no wheeze or rhonchi Gastrointestinal-nontender, bowel sound+. Nondistended Musculoskeletal-no acute joint swelling or tenderness or redness Lower extremity- no leg edema Neurological- cranial nerves intact, no acute dysarthria or dysphagia Psychiatry- denies depression or SI or HI Skin- no acute rash or purpura laboratory and microbiology Laboratory Tests 10/24/25 04:43 Test 10/24/25 04:43 Range/Units Serum Glucose 127 H 74-106 mg/dL Problem List/Assessment/Plan Problem List/Assessment/Plan Problem List/Assessment/Plan # Acute blood loss anemia # Probable GI bleed # Severe normocytic anemia with iron deficiency Severe anemia with hemoglobin 6.8, significantly below baseline of 910, in the setting of reported intermittent melena and chronic anticoagulation use, concerning for gastrointestinal bleeding. Two units of PRBCs initiated in the ED. Trend hemoglobin and hematocrit, maintain active type and screen, hold anticoagulation, start IV PPI, monitor stools, obtain iron studies, and consult gastroenterology for further evaluation. GI on board: Requested evaluation by cardiology (patient has untreated severe mitral stenosis) # Acute on chronic diastolic heart failure # Paroxysmal Atrial fibrillation (CHADS VASC 5) secondary hypercoagulability state # Severe mitral stenosis # NSTEMI probable typr II # History of aortic stenosis s/p TAVR # Non Affiliated arrhythmia s/p PPM Evidence of volume overload with pulmonary vascular congestion on chest X-ray and elevated BNP, likely exacerbated by severe anemia and transfusion. Monitor volume status closely, strict intake and output, daily weights, cautious diuresis as tolerated, and telemetry monitoring. Avoid blood thinners due to high bleesing risk -pending cardiology clearance, Dr. Thomas with the enterprise application developer for the patient, we will ask Dr. Bishop for cardiology clearance tomorrow # Chronic kidney disease stage IV Renal function consistent with baseline with creatinine 1.79 and GFR 28. Avoid nephrotoxic agents, renally dose medications, and monitor renal function closely during transfusion and diuresis. # COPD exacerbation No evidence of acute exacerbation. Continue duo nebs and monitor respiratory status. Indicated IV steroids, bronchodilators, and empiric Iv antibiotics (Azithromycin) -ordered and acidosis # Hypertension Blood pressure with low diastolic readings on admission. Hold antihypertensive medications for now and reassess as hemodynamics stabilize. # thrombus in the medial branch of the basilic vein -Doppler study negative for deep vein thrombosis, there is occlusive thrombosis in the medial branch of the basilic vein distal to the elbow on the left, -warm compression # diverticulosis with the diverticulitis-CT scan finding # dilated common bile duct -avoid dehydration and constipation -gastroenterology on board Goals of care discussed with patient for over 18 minutes: Full code status Discussed plan with Dr Valenzuela, patient and nurses: Currently on telemetry status. Indicated medical therapy. Plan discussed with: Patient, Other (Nurses) Plan discussed with: Patient, Other (RN) My Orders My Orders Orders - ARI HARVEY Procedure Category Date Status Time Guaifenesin-Dextromet PHA 10/24/25 In Process Liquid (Robitussin 09:30 Acetylcysteine PHA 10/24/25 In Process Inhalation 10% 14:00 Lt Upper Dvt US 10/24/25 Logged 14:36 Visit Coding STANDARD RES Billing Provider: TOOTIE VALENZUELA MD Date of Service if different f: Oct 24, 2025 Common Visit Codes: [id number] INP/OBS CARE(HIGH) ARI HARVEY Oct 24, 2025 16:58
--- NOTE | 2025-10-24 17:42 | DVH ---
INDICATION: fausto TECHNIQUE: Multiple real-time sonographic images of the kidneys and bladder were obtained. COMPARISON: US KIDNEY on DOS: 06/14/25 FINDINGS: RIGHT KIDNEY: Measures 7.9 cm in length, which is normal in size. There is decreased cortical thickness and increased echogenicity of the right kidney suggesting chronic renal disease. No hydronephrosis. In the cortex of the right kidney is an anechoic nodule measuring 1 x 0.6 x 0.7 cm consistent with a cortical cyst. LEFT KIDNEY: Measures 7.3 cm in length, which is normal in size. There is normal echogenicity of the left kidney. No hydronephrosis. No nephrolithiasis or hydronephrosis. There is decreased cortical thickness with increased echogenicity suggesting chronic renal disease. No large intraluminal masses are seen in the bladder. Prior to voiding the bladder volume measures volume 37 mL. No postvoid bladder images were received. IMPRESSION: 1. Bilateral kidneys appear atrophic. 2. 1 x 0.6 x 0.7 cm cortical cyst in the right kidney is noted 3. Bladder contains 37 mL of urine. 4. No postvoid bladder images were received.
--- NOTE | 2025-10-24 18:36 | DVH ---
LEFT Upper Extremity Venous Duplex CLINICAL HISTORY: infiltration of abx, r/o dvt COMPARISON: None TECHNIQUE: Duplex Doppler evaluation of the venous system of the LEFT lower neck and upper extremity including color Doppler and spectral/pulsed waveform analysis was performed. FINDINGS: The internal jugular vein demonstrates appropriate compressibility and waveform variability. The subclavian vein is patent on color Doppler evaluation without intraluminal thrombus and demonstrates waveform variability. The visualized portion of the brachiocephalic vein is patent on color Doppler evaluation without intraluminal thrombus and demonstrates waveform variability. The axillary vein demonstrates appropriate compressibility and waveform variability. The brachial veins demonstrate appropriate compressibility and patency on Doppler evaluation. The basilic vein demonstrates appropriate compressibility and patency on Doppler evaluation. The cephalic vein demonstrates appropriate compressibility and patency on Doppler evaluation. IMPRESSION: 1. No venous thrombus identified in the LEFT upper extremity vessels evaluated above. 2. THERE IS OCCLUSIVE THROMBUS NOTED IN THE MEDIAL BRANCH OF THE BASILIC VEIN DISTAL TO THE ELBOW ON THE LEFT. 3. If clinical concern/symptoms persist or worsen, short-interval follow-up study is suggested.
--- NOTE | 2025-10-24 19:41 | DVHINCON2 ---
Date of service: Oct 23, 2025 Referring Physician Carolynn Reason for Consultation Severe mitral stenosis History of Present Illness This is an 85-year-old female with a past medical history including HFpEF, severe valvular disease status post TAVR, atrial fibrillation on anticoagulation, chronic kidney disease stage 4, COPD, hypertension, and chronic anemia who was sent to the ED by her PCP after outpatient labs showed a markedly low hemoglobin. She reports worsening shortness of breath over the past several days, primarily with exertion. She is currently on room air. She endorses intermittent black stools at home. Baseline hemoglobin is approximately 910. In the ED, hemoglobin was found to be 6.8, and she was started on transfusion of 2 units of packed red blood cells. Chest x-ray demonstrated pulmonary vascular congestion. Patient was admitted to the hospital. I am asked to consult on this patient. Family History: Hypertension G8 MOTHER G8 FATHER 19 CHILD Allergies: Coded Allergies: Acetaminophen (Verified Allergy, Unknown, 08/09/25) Hydrocodone (Verified Allergy, Unknown, 08/09/25) Tramadol (Verified Adverse Reaction, Unknown, 06/18/25) Home Meds Reported Medications Buspirone Hcl (Buspirone Hcl) 10 Mg Tab, 10 MG PO Q12HR for 30 Days, MG 10/23/25 Atorvastatin Calcium (Lipitor) 40 Mg Tab, 1 TAB PO DAILY for 31 Days, #31 08/10/25 Sildenafil Citrate (Sildenafil Citrate) 20 Mg Tab, 1 TAB PO TID for 31 Days, #62 08/10/25 Amiodarone HCl (Amiodarone HCl) 200 Mg Tab, 1 TAB PO BID for 31 Days, #62 08/10/25 Carvedilol (Carvedilol) 3.125 Mg Tab, 1 TAB PO BID for 31 Days, #62 08/10/25 Colchicine (Colchicine) 0.6 Mg Cap, 1 CAP PO DAILY for 14 Days, #14 08/10/25 Montelukast Sodium (MONTELUKAST SODIUM) 10 Mg Tab, 1 TAB PO DAILY for 30 Days, #30 06/14/25 Furosemide (Furosemide) 40 Mg Tab, 1 TAB PO DAILY for 30 Days, #30 06/14/25 Allopurinol (Allopurinol) 100 Mg Tab, 1 TAB PO DAILY for 30 Days, #30 06/12/25 Pantoprazole Sodium Sesquihydr (Protonix) 40 Mg Tab, 1 TAB PO QAM for GERD 06/20/23 Apixaban Base (ELIQUIS) 2.5 Mg Tab, 1 TAB PO BID for CAD 06/20/23 Albuterol Sulfate (Albuterol Sulfate Hfa) 108 Mcg/Act Aer, 2 PUFF IN QID PRN for SHORTNESS OF BREATH 06/20/23 Current Medications Current Medications Medications (Trade) Dose Ordered Sig/Payam Route PRN Reason Start Time Stop Time Status Last Admin Methylprednisolone Sodium Succinate (Solu Medrol) 40 mg BID IV 10/23/25 22:00 10/24/25 11:00 Acetylcysteine (Mucomyst Inahalation 10%) 100 mg Q4HR NEB 10/24/25 10:00 10/24/25 09:41 DC Guaifenesin/ Dextromethorphan (Robitussin-Dm Liquid) 10 ml Q4HP PRN PO FOR COUGH 10/24/25 09:30 10/24/25 14:59 Acetylcysteine (Mucomyst Inahalation 10%) 100 mg Q8HR NEB 10/24/25 14:00 Pantoprazole Sodium (Protonix) 40 mg Q12HR IV 10/24/25 10:45 10/24/25 11:02 Review of Systems Negative except as per HPI Vital Signs Vital Signs Date Time Temp Pulse Resp B/P (MAP) Pulse Ox O2 Delivery O2 Flow Rate FiO2 10/24/25 16:39 98.1 68 16 142/70 (94) 94 98.1 10/24/25 10:14 Nasal Cannula* 2 28 Physical Exam GENERAL: Alert and oriented x 3. No acute distress. EYES: PERRL, EOMI. Anicteric. HENT: Moist mucous membranes. LUNGS: Clear to auscultation bilaterally. CARDIOVASCULAR: Regular rate and rhythm. ABDOMEN: Soft, nontender and nondistended. EXTREMITIES: No edema. NEUROLOGIC: No focal neurological deficits. SKIN: Warm, dry. Labs/Diagnostic Data Labs Test 10/24/25 04:43 10/23/25 10:00 10/23/25 09:34 10/23/25 06:22 Range/Units White Blood Count 8.0 # 4.4-10.8 10^3/uL Red Blood Count 3.42 L 4.0-5.20 10^6/uL Hemoglobin 8.9 L 12.2-16.2 g/dL Hematocrit 28.1 L 36.0-46.0 % Mean Corpuscular Volume 82.1 80.0-100.0 fL Mean Corpuscular Hemoglobin 26.1 L 28.0-32.0 pg Mean Corpuscular Hemoglobin Concent 31.8 L 32.0-36.0 g/dL Red Cell Distribution Width 19.0 H 11.8-14.3 % Platelet Count 331 140-450 10^3/uL Mean Platelet Volume 9.6 6.9-10.8 fL Neutrophils (%) (Auto) 96.2 H 37.0-80.0 % Lymphocytes (%) (Auto) 2.3 L 10.0-50.0 % Monocytes (%) (Auto) 1.3 0.0-12.0 % Eosinophils (%) (Auto) 0.0 0.0-7.0 % Basophils (%) (Auto) 0.2 0.0-2.0 % Neutrophils # (Auto) 7.7 1.6-8.6 10 ^3/uL Lymphocytes # (Auto) 0.2 L 0.4-5.4 10 ^3/uL Monocytes # (Auto) 0.1 0-1.3 10 ^3/uL Eosinophils # (Auto) 0 0-0.8 10 ^3/uL Basophils # (Auto) 0 0-0.2 10 ^3/uL Nucleated Red Blood Cells 0.4 % Sodium Level 142 136-145 mmol/L Potassium Level 4.1 3.5-5.1 mmol/L Chloride Level 106 98-107 mmol/L Carbon Dioxide Level 25 20-31 mmol/L Anion Gap 11 5-15 Blood Urea Nitrogen 28 H 9-23 mg/dL Creatinine 1.83 H 0.550-1.02 mg/dL Glomerular Filtration Rate Calc 27 >90 mL/min BUN/Creatinine Ratio 15.3 10.0-20.0 Serum Glucose 127 H 74-106 mg/dL Calcium Level 9.4 8.7-10.4 mg/dL Phosphorus Level 3.6 2.4-5.1 mg/dL Magnesium Level 2.6 1.6-2.6 mg/dL Haptoglobin 167 41-333 mg/dL Urine Color Light-yellow Yellow Urine Clarity Clear Clear Urine pH 6.0 5.0-9.0 Urine Specific [place] 1.016 1.001-1.035 Urine Protein Negative Negative Urine Ketones Negative Negative Urine Blood Negative Negative /uL Urine Nitrite Negative Negative Urine Bilirubin Negative Negative Urine Urobilinogen Normal Negative mg/dL Urine Leukocyte Esterase Negative Negative /uL Urine RBC 1 0 - 4 /hpf Urine Microscopic WBC < 1 0-5 /HPF Urine Squamous Epithelial Cells Few <5 /hpf Urine Bacteria None seen None Seen /hpf Urine Hyaline Casts Few 0 - 2 /lpf Urine Mucus Few None Seen Urine Creatinine 87.12 30.0-125.0 mg/dL Urine Sodium 54 40-220 mmol/L Urine Glucose Normal Normal mg/dL Urine Total Protein 20.4 H 1-14 mg/dL Urine Opiates Screen Neg NEGATIVE Urine Fentanyl Screen Neg NEGATIVE Urine Barbiturates Screen Neg NEGATIVE Urine Phencyclidine Screen Neg NEGATIVE Urine Amphetamines Screen Neg NEGATIVE Urine Benzodiazepines Screen Neg NEGATIVE Urine Cocaine Screen Neg NEGATIVE Urine Cannabinoids Screen Neg NEGATIVE Reticulocyte Count (auto) 1.71 H 0.5-1.5 % Prothrombin Time 11.0 9.3-11.8 sec Prothrombin Time INR 1.04 0.9-1.15 Activated Partial Thromboplast Time 28.2 24.5-34.5 SEC Total Bilirubin 0.8 0.2-1.0 mg/dL Aspartate Amino Transferase (AST) 20 13-40 U/L Alanine Aminotransferase (ALT) 13 7-40 U/L Alkaline Phosphatase 72 46-116 U/L Total Protein 7.1 5.7-8.2 g/dL Albumin 4.4 3.2-4.8 g/dL Thyroid Stimulating Hormone (TSH) 1.04 0.55-4.78 uIU/mL Test 10/22/25 16:00 10/22/25 14:10 10/22/25 13:00 Range/Units Hemoglobin A1c 5.8 H <5.7 % A1C Iron Level 15 L 50-170 ug/dL Total Iron Binding Capacity 410 250-425 ug/dL Percent Iron Saturation 3.7 L 15-50 % Ferritin 15.3 10-291 ng/mL Troponin I High Sensitivity 47 *H </=34 ng/L Triglycerides Level 66 < 150 mg/dL Cholesterol Level 143 < 200 mg/dL LDL Cholesterol 80 < 100 mg/dL HDL Cholesterol 52 40-59 mg/dL Platelet Estimate Adequate Schistocytes Few Lactic Acid Level 1.7 0.4-2.0 mmol/L B-Type Natriuretic Peptide 394.76 0-100 pg/mL Assessment Acute blood loss anemia. Acute on chronic diastolic heart failure. Chronic kidney disease stage 4. Atrial fibrillation. Type 2 myocardial infarction. Chronic obstructive pulmonary disease. Hypertension. Plan/Recommendation I agree with your ongoing assessment and care of plan. Morphine for pain management. GI prophylactics. Additional plan as per the hospital course. A total of 45 minutes was spent reviewing the patient record, examining the patient, making a diagnostic and therapeutic plan, discussing this plan with medical personnel, following up on diagnostic studies and following the patient for clinical stability excluding any and all procedures. At least 50% of this time was spent in direct, [id number] contact. Plan discussed with: Patient CHELY SUMNER MD Oct 24, 2025 18:13
--- NOTE | 2025-10-24 19:48 | DVHPN2 ---
Progress Note - Dictate Date Seen: Oct 24, 2025 Medical Necessity Reason Pt with a Central, PICC or Fol: No Subjective Patient seen at bedside, no acute complaint Patient denies any active GI bleeding ; H&H stable at 8.9 Patient has areas of bruising related to anticoagulation for her TVAR Patient stated she has had previous recent endoscopies x2 and colonoscopy as part of her workup for chronic anemia which she reports as negative vital signs Vital Sign Date Time Temp Pulse Resp B/P (MAP) Pulse Ox O2 Delivery O2 Flow Rate FiO2 10/24/25 16:39 98.1 68 16 142/70 (94) 94 98.1 10/24/25 10:14 Nasal Cannula* 2 28 Total Intake and Output 10/23/25 10/23/25 10/24/25 15:00 23:00 07:00 Intake Total 110 ml 870 ml 500 ml Balance 110 ml 870 ml 500 ml medications Current Medications Medications Dose Ordered Sig/Payam Route Start Time Stop Time Status Last Admin Dose Admin Albuterol 2.5 mg Q8HR NEB 10/22/25 22:00 10/24/25 07:24 2.5 MG Ipratropium Fraser 0.5 mg Q8HR NEB 10/22/25 22:00 10/24/25 07:24 0.5 MG Morphine Sulfate 2 mg Q4HPRN PRN IV 10/22/25 14:45 Iron Sucrose 110 ml @ 110 mls/hr DAILY@1200 IV 10/23/25 12:00 10/27/25 11:59 10/24/25 11:03 110 MLS/HR Methylprednisolone Sodium Succinate 40 mg BID IV 10/23/25 22:00 10/24/25 11:00 40 MG Guaifenesin/ Dextromethorphan 10 ml Q4HP PRN PO 10/24/25 09:30 10/24/25 14:59 10 ML Acetylcysteine 100 mg Q8HR NEB 10/24/25 14:00 Pantoprazole Sodium 40 mg Q12HR IV 10/24/25 10:45 10/24/25 11:02 40 MG objective Gen: Appears stated age, NAD HEENT: PERRLA, mucous membranes moist Heart: RRR, normal S1 and S2 Lungs: Bilateral air entry, no rales Abd: Normoactive bowel sounds, soft, nontender, nondistended. Ext: + edema Neuro: Alert and oriented x 4 laboratory and microbiology Laboratory Tests 10/24/25 04:43 Test 10/24/25 04:43 Range/Units Serum Glucose 127 H 74-106 mg/dL Problems(with codes): (1) Symptomatic anemia (2) Shortness of breath (3) CHF (congestive heart failure) (4) [id number] kidney injury Prognosis Assessment plan Based on patient's underlying chronic kidney and cardiac issues with anticoagulation I believe patient has anemia of chronic disease aggravated by her anticoagulation She has had a recent negative GI workup I would recommend conservative treatment and management at this time Protonix 40 mg IV twice a day and taper off the Protonix drip Clear liquid diet advance as tolerated Monitor labs and I will follow up patient with you Transfuse 1 unit PRBC if hemoglobin is less than eight Plan discussed with: Patient, Other (Nurse) PILY MILLS MD Oct 24, 2025 19:48
--- NOTE | 2025-10-24 21:01 | ECG ---
[facility] Test Date: 2025-10-22 Test Time: 12:15:42 Pat Name: KEN BENTLEY Department: ED [facility] Gender: F [employer]: JOHN : 1940 Requested By: TALIA ALLAN Order Number: [id number] Reading MD: Farooq Jarquin Measurements Intervals [place] Rate: 87 P: 0 MA: 59 QRS: -66 QRSD: 136 T: 91 QT: 418 QTc: 503 Interpretive Statements Ventricular-paced rhythm No further analysis attempted due to paced rhythm Electronically Signed On 10-28-2025 8:28:08 PST by Farooq Jarquin Please click the below link to view image of tracing.
[2025-10-24] MEDS: PANTOPRAZOLE 40 MG TAB PO ONE (21:46)
[2025-10-25] VITALS (13 sets, daily range): BP systolic 135–149; BP diastolic 66–76; PULSE 63–75; RESP 18–20; TEMP 97.7–98; O2SAT 96–100
[2025-10-25] MEDS: DOCUSATE SOD 100 MG CAP PO ONE (05:19)
[2025-10-25 06:56] LABS: Hematocrit 28.4 % (36.0-46.0); Hemoglobin 8.7 g/dL (12.2-16.2); Mean Corpuscular Hemoglobin 25.8 pg (28.0-32.0); Mean Corpuscular Volume 84.0 fL (80.0-100.0); Nucleated Red Blood Cells % 0.4 %
[2025-10-25 07:11] LABS: Anion Gap 11 (5-15); Carbon Dioxide 25 mmol/L (20-31); Chloride 106 mmol/L (98-107); Potassium 4.3 mmol/L (3.5-5.1); Sodium 142 mmol/L (136-145)
[2025-10-25 07:13] LABS: Calcium 9.1 mg/dL (8.7-10.4)
[2025-10-25 07:16] LABS: Uric Acid 8.9 mg/dL (3.1-7.8)
[2025-10-25 07:17] LABS: BUN/Creatinine Ratio 19.1 (10.0-20.0); Glucose 96 mg/dL (74-106)
[2025-10-25 07:22] LABS: Blood Urea Nitrogen 36 mg/dL (9-23)
--- NOTE | 2025-10-25 10:54 | ECG ---
[facility] Test Date: 2025-10-23 Test Time: 14:13:07 Pat Name: KEN BENTLEY Department: Respirat[facility] Room: 0251T B Gender: F [employer] Department Chair: CHERYLE GALARZA RN : 1940 Requested By: ANGELO ALEXANDER Order Number: [id number] Reading MD: Farooq Jarquin Measurements Intervals [place] Rate: 73 P: 19 ME: 212 QRS: -70 QRSD: 153 T: 98 QT: 469 QTc: 517 Interpretive Statements Ventricular-paced complexes No further analysis attempted due to paced rhythm Baseline wander in lead(s) V3 Electronically Signed On 10-28-2025 8:17:08 PST by Farooq Jarquin Please click the below link to view image of tracing.
[2025-10-25] MEDS ORDERED: FERR1TAB36 PO (11:46)
--- NOTE | 2025-10-25 11:48 | DVHDSRES ---
Discharge Summary Date of Admission Resident Creating Document: JESSICA ROUSE Oct 22, 2025 at 14:27 Date of Discharge: Oct 25, 2025 Admitting Diagnosis Severe anemia Labs/Diagnostic Data: Laboratory Results Test 10/25/25 05:43 10/24/25 04:43 10/23/25 10:00 10/23/25 09:34 White Blood Count 13.2 10^3/uL (4.4-10.8) Red Blood Count 3.38 10^6/uL (4.0-5.20) Hemoglobin 8.7 g/dL (12.2-16.2) Hematocrit 28.4 % (36.0-46.0) Mean Corpuscular Volume 84.0 fL (80.0-100.0) Mean Corpuscular Hemoglobin 25.8 pg (28.0-32.0) Mean Corpuscular Hemoglobin Concent 30.8 g/dL (32.0-36.0) Red Cell Distribution Width 19.2 % (11.8-14.3) Platelet Count 336 10^3/uL (140-450) Mean Platelet Volume 9.3 fL (6.9-10.8) Neutrophils (%) (Auto) 83.4 % (37.0-80.0) Lymphocytes (%) (Auto) 5.8 % (10.0-50.0) Monocytes (%) (Auto) 10.5 % (0.0-12.0) Eosinophils (%) (Auto) 0.1 % (0.0-7.0) Basophils (%) (Auto) 0.2 % (0.0-2.0) Neutrophils # (Auto) 11.0 10 ^3/uL (1.6-8.6) Lymphocytes # (Auto) 0.8 10 ^3/uL (0.4-5.4) Monocytes # (Auto) 1.4 10 ^3/uL (0-1.3) Eosinophils # (Auto) 0 10 ^3/uL (0-0.8) Basophils # (Auto) 0 10 ^3/uL (0-0.2) Nucleated Red Blood Cells 0.4 % Sodium Level 142 mmol/L (136-145) Potassium Level 4.3 mmol/L (3.5-5.1) Chloride Level 106 mmol/L (98-107) Carbon Dioxide Level 25 mmol/L (20-31) Anion Gap 11 (5-15) Blood Urea Nitrogen 36 mg/dL (9-23) Creatinine 1.88 mg/dL (0.550-1.02) Glomerular Filtration Rate Calc 26 mL/min (>90) BUN/Creatinine Ratio 19.1 (10.0-20.0) Serum Glucose 96 mg/dL (74-106) Uric Acid 8.9 mg/dL (3.1-7.8) Calcium Level 9.1 mg/dL (8.7-10.4) Phosphorus Level 3.0 mg/dL (2.4-5.1) Thyroid Stimulating Hormone (TSH) 1.47 uIU/mL (0.55-4.78) Magnesium Level 2.6 mg/dL (1.6-2.6) Haptoglobin 167 mg/dL (41-333) Urine Color Light-yellow (Yellow) Urine Clarity Clear (Clear) Urine pH 6.0 (5.0-9.0) Urine Specific [place] 1.016 (1.001-1.035) Urine Protein Negative (Negative) Urine Ketones Negative (Negative) Urine Blood Negative /uL (Negative) Urine Nitrite Negative (Negative) Urine Bilirubin Negative (Negative) Urine Urobilinogen Normal mg/dL (Negative) Urine Leukocyte Esterase Negative /uL (Negative) Urine RBC 1 /hpf (0 - 4) Urine Microscopic WBC < 1 /HPF (0-5) Urine Squamous Epithelial Cells Few /hpf (<5) Urine Bacteria None seen /hpf (None Seen) Urine Hyaline Casts Few /lpf (0 - 2) Urine Mucus Few (None Seen) Urine Creatinine 87.12 mg/dL (30.0-125.0) Urine Sodium 54 mmol/L (40-220) Urine Glucose Normal mg/dL (Normal) Urine Total Protein 20.4 mg/dL (1-14) Urine Opiates Screen Neg (NEGATIVE) Urine Fentanyl Screen Neg (NEGATIVE) Urine Barbiturates Screen Neg (NEGATIVE) Urine Phencyclidine Screen Neg (NEGATIVE) Urine Amphetamines Screen Neg (NEGATIVE) Urine Benzodiazepines Screen Neg (NEGATIVE) Urine Cocaine Screen Neg (NEGATIVE) Urine Cannabinoids Screen Neg (NEGATIVE) Test 10/23/25 06:22 10/22/25 16:00 10/22/25 14:10 10/22/25 13:00 Reticulocyte Count (auto) 1.71 % (0.5-1.5) Prothrombin Time 11.0 sec (9.3-11.8) Prothrombin Time INR 1.04 (0.9-1.15) Activated Partial Thromboplast Time 28.2 SEC (24.5-34.5) Total Bilirubin 0.8 mg/dL (0.2-1.0) Aspartate Amino Transferase (AST) 20 U/L (13-40) Alanine Aminotransferase (ALT) 13 U/L (7-40) Alkaline Phosphatase 72 U/L (46-116) Total Protein 7.1 g/dL (5.7-8.2) Albumin 4.4 g/dL (3.2-4.8) Vitamin B12 Level 494 pg/mL (211-911) Folic Acid 23.05 ng/mL (>5.38) Hemoglobin A1c 5.8 % A1C (<5.7) Iron Level 15 ug/dL (50-170) Total Iron Binding Capacity 410 ug/dL (250-425) Percent Iron Saturation 3.7 % (15-50) Ferritin 15.3 ng/mL (10-291) Troponin I High Sensitivity 47 ng/L (</=34) Triglycerides Level 66 mg/dL (< 150) Cholesterol Level 143 mg/dL (< 200) LDL Cholesterol 80 mg/dL (< 100) HDL Cholesterol 52 mg/dL (40-59) Platelet Estimate Adequate Schistocytes Few Lactic Acid Level 1.7 mmol/L (0.4-2.0) B-Type Natriuretic Peptide 394.76 pg/mL (0-100) Other Laboratory Tests 10/25/25 05:43 Brief Hx & Hospital Course: HPI: An 85-year-old female with a significant past medical history including HFpEF, COPD on home oxygen as needed, severe valvular disease status post TAVR, atrial fibrillation on anticoagulation, Non Affiliated arrhythmia s/p PPM, chronic kidney disease stage 4, COPD, hypertension, and chronic anemia was sent to the ED by her PCP after outpatient labs showed a markedly low hemoglobin. She reports worsening shortness of breath over the past several days, primarily with exertion. She is currently on room air. She endorses intermittent black stools at home. Baseline hemoglobin is approximately 910. In the ED, hemoglobin was found to be 6.8, and she was started on transfusion of 2 units of packed red blood cells. Chest X-ray demonstrated pulmonary vascular congestion. She was admitted for further evaluation and management. PMHx: HFpEF, severe aortic stenosis status post TAVR, severe mitral stenosis, atrial fibrillation on anticoagulation, chronic kidney disease stage 4, COPD, hypertension, chronic anemia, gout, morbid obesity, prior NSTEMI type 2 PSHx: TAVR, permanent pacemaker placement. Social History Former smoker, denies alcohol or illicit drug use Brief hospital course: On further evaluation patient was found to have severe normocytic anemia with a iron-deficiency, which initially was attributed to GI blood loss. However, after unremarkable GI workup, patient was started on Protonix. Continue procedure was planned at this time. Her anemia was size most likely due to anemia of chronic disease on top of anticoagulation use at home. The patient received 2 units of packed red blood cells on admission. Her H&H was closely monitored. Patient had history of acute on chronic diastolic heart failure, severe MS, arrhythmia status post ppm, aortic stenosis status post TAVR, paroxysmal AFib. Cardiology consultation was appreciated. Initially the patient was advised to hold dog, she was not deemed suitable candidate for any surgical valve procedures. Continued medical therapy and supportive care was provided. As per patient's history of CKD stage 4, renal function tests including strict I&Os were closely monitored. DVT was ruled out, her superficial thrombus on basilic vein was managed by supportive care including warm compression. Antihypertensive were held due to low blood pressures. On CT abdomen, dilated CBD was found, outpatient follow up with the GI recommended. The day of discharge patient was hemodynamically stable, treatment and discharge plan was discussed with the patient and her son. They verbalized understanding. Patient is advised to follow up outpatient with DC clinic, PCP, GI and Cardiology. Pt is lying on bed General Appearance: Alert, Oriented X3, Cooperative, Mild distress HEENT: Atraumatic, Mucous membranes moist/pink Respiratory: Clear to auscultation, Normal air movement, No added sounds Cardiovascular: Regular rate, Normal S1, Normal S2, No murmurs Abdominal/ : Active bowel sounds, Soft, no distention, no tenderness Extremities: No edema, Normal pulses, No tenderness/swelling Skin: No Significant rash, except past surgical scars Neuro: Normal speech, sensorimotor deficits none Psych/Mental Status: Mental status NL, Mood NL Nurse was there as brand marketing coordinator during examination Operations or Procedures PATIENT: KEN BENTLEY ACCT: [id number] UNIT: [id number] : 1940 LOC: [facility] ROOM / BED: [facility]T / B AGE / SEX: 85 / F ADM STATUS: ADM IN SERVICE 1439 ORDERING PHYSICIAN: PONCHO CERDA PROCEDURE(s): KIDUS - KIDNEY REASON: fausto ORDER NUMBER(s): [id number], ACCESSION NUMBER(s): [id number] INDICATION: fausto TECHNIQUE: Multiple real-time sonographic images of the kidneys and bladder were obtained. COMPARISON: US KIDNEY on DOS: 06/14/25 FINDINGS: RIGHT KIDNEY: Measures 7.9 cm in length, which is normal in size. There is decreased cortical thickness and increased echogenicity of the right kidney suggesting chronic renal disease. No hydronephrosis. In the cortex of the right kidney is an anechoic nodule measuring 1 x 0.6 x 0.7 cm consistent with a cortical cyst. LEFT KIDNEY: Measures 7.3 cm in length, which is normal in size. There is normal echogenicity of the left kidney. No hydronephrosis. No nephrolithiasis or hydronephrosis. There is decreased cortical thickness with increased echogenicity suggesting chronic renal disease. No large intraluminal masses are seen in the bladder. Prior to voiding the bladder volume measures volume 37 mL. No postvoid bladder images were received. IMPRESSION: 1. Bilateral kidneys appear atrophic. 2. 1 x 0.6 x 0.7 cm cortical cyst in the right kidney is noted 3. Bladder contains 37 mL of urine. 4. No postvoid bladder images were received. PATIENT: KEN BENTLEY ACCT: [id number] UNIT: [id number] : 1940 LOC: [facility]GE / SEX: 85 / F ADM STATUS: ADM IN SERVICE 1436 ORDERING PHYSICIAN: ARI HARVEY PROCEDURE(s): LUDVT - LT Upper DVT REASON: infiltration of abx, r/o dvt ORDER NUMBER(s): [id number], ACCESSION NUMBER(s): [id number] LEFT Upper Extremity Venous Duplex CLINICAL HISTORY: infiltration of abx, r/o dvt COMPARISON: None TECHNIQUE: Duplex Doppler evaluation of the venous system of the LEFT lower neck and upper extremity including color Doppler and spectral/pulsed waveform analysis was performed. FINDINGS: The internal jugular vein demonstrates appropriate compressibility and waveform variability. The subclavian vein is patent on color Doppler evaluation without intraluminal thrombus and demonstrates waveform variability. The visualized portion of the brachiocephalic vein is patent on color Doppler evaluation without intraluminal thrombus and demonstrates waveform variability. The axillary vein demonstrates appropriate compressibility and waveform variability. The brachial veins demonstrate appropriate compressibility and patency on Doppler evaluation. The basilic vein demonstrates appropriate compressibility and patency on Doppler evaluation. The cephalic vein demonstrates appropriate compressibility and patency on Doppler evaluation. IMPRESSION: 1. No venous thrombus identified in the LEFT upper extremity vessels evaluated above. 2. THERE IS OCCLUSIVE THROMBUS NOTED IN THE MEDIAL BRANCH OF THE BASILIC VEIN DISTAL TO THE ELBOW ON THE LEFT. 3. If clinical concern/symptoms persist or worsen, short-interval follow-up study is suggested. PATIENT: KEN BENTLEY ACCT: [id number] UNIT: [id number] : 1940 LOC: [facility] ROOM / BED: [address] [place] [address] B AGE / SEX: 85 / F ADM STATUS: ADM IN SERVICE 1422 ORDERING PHYSICIAN: ANGELO ALEXANDER RESIDENT PROCEDURE(s): ABDL - ABDOMEN LIMITED REASON: Evaluated dilated CBD ORDER NUMBER(s): [id number], ACCESSION NUMBER(s): [id number] INDICATION: Evaluated dilated CBD TECHNIQUE: Multiple real-time sonographic images of the abdomen were obtained. COMPARISON: US GROIN / INGUINAL REGION BILAT on DOS: 12/29/24, US ABDOMEN LIMITED on DOS: 02/06/23 FINDINGS: The liver is homogenous in echogenicity. The liver measures 14 cm. No intrahepatic biliary ductal dilatation is noted. The gallbladder wall measures 0.17 cm and is unremarkable. No gallstones or sludge is seen. The common duct measures 0.67 cm and is mildly dilated. No pericholecystic fluid is noted. The right kidney measures 8.1 cm. No hydronephrosis. The pancreas is not well visualized due to obscuration from bowel gas. The visualized portions of the IVC and aorta are grossly unremarkable. IMPRESSION: 1. Normal exam of the abdomen. 2. Gallbladder appears normal with mildly dilated common bile duct. 3. Liver measures 14 cm in the parenchyma is homogeneous. NT: KEN BENTLEY ACCT: [id number] UNIT: [id number] : 1940 LOC: [facility] ROOM / BED: 0251T / B AGE / SEX: 85 / F ADM STATUS: ADM IN SERVICE 0943 ORDERING PHYSICIAN: ANGELO ALEXANDER PROCEDURE(s): ABPL - CT AB PEL WO CON-NO ORAL OR IV REASON: GI bleed ORDER NUMBER(s): [id number], ACCESSION NUMBER(s): [id number] EXAM DESCRIPTION: CT CT AB PEL WO CON-NO ORAL OR IV CLINICAL HISTORY: GI bleed COMPARISON: None TECHNIQUE: CT abdomen and pelvis without IV contrast was performed. Coronal and sagittal MPR images were generated.CTDI/ DLP = 27.71 / 1204.51 Dose reduction technique with one or more of the following methods was performed: Automated exposure control, adjustment of the mA and/or kV according to patient size, use of iterative reconstruction technique FINDINGS: Lower chest: Clear lung bases. Liver: Homogenous in attenuation. . Biliary: No calcified gallstones. Dilated common bile duct measuring up to 1.4 cm. Pancreas: No fat stranding or focal lesion. Spleen: Normal in size.. Adrenal glands: No nodularity. Kidneys: No nephrolithiasis. No hydroureteronephrosis. . Bladder: Underdistended, limiting evaluation. Reproductive organs: Status post hysterectomy. No adnexal masses. Bowel: No bowel wall thickening or dilatation. Colonic diverticulosis without evidence of diverticulitis. . Peritoneum: No free fluid. No free air. Vessels: Normal caliber abdominal aorta. Severe atherosclerotic calcifications.. Lymph nodes: No suspicious lymph nodes. Soft tissues: Unremarkable. . Osseous structures: No acute fracture or subluxation. No suspicious osseous lesions. Degenerative changes of the visualized thoracolumbar spine. IMPRESSION: 1. Dilated common bile duct. Recommend further evaluation with MRCP. 2. Active gastrointestinal hemorrhage cannot be evaluated for on this study due to lack of IV contrast. Colonic diverticulosis without evidence of diverticulitis. 3. Severe atherosclerotic vascular disease. NT: KEN BENTLEY ACCT: [id number] UNIT: [id number] : 1940 LOC: [facility] ROOM / BED: 0251T / B AGE / SEX: 85 / F ADM STATUS: ADM IN SERVICE 0943 ORDERING PHYSICIAN: ANGELO ALEXANDER PROCEDURE(s): ABPL - CT AB PEL WO CON-NO ORAL OR IV REASON: GI bleed ORDER NUMBER(s): [id number], ACCESSION NUMBER(s): [id number] EXAM DESCRIPTION: CT CT AB PEL WO CON-NO ORAL OR IV CLINICAL HISTORY: GI bleed COMPARISON: None TECHNIQUE: CT abdomen and pelvis without IV contrast was performed. Coronal and sagittal MPR images were generated.CTDI/ DLP = 27.71 / 1204.51 Dose reduction technique with one or more of the following methods was performed: Automated exposure control, adjustment of the mA and/or kV according to patient size, use of iterative reconstruction technique FINDINGS: Lower chest: Clear lung bases. Liver: Homogenous in attenuation. . Biliary: No calcified gallstones. Dilated common bile duct measuring up to 1.4 cm. Pancreas: No fat stranding or focal lesion. Spleen: Normal in size.. Adrenal glands: No nodularity. Kidneys: No nephrolithiasis. No hydroureteronephrosis. . Bladder: Underdistended, limiting evaluation. Reproductive organs: Status post hysterectomy. No adnexal masses. Bowel: No bowel wall thickening or dilatation. Colonic diverticulosis without evidence of diverticulitis. . Peritoneum: No free fluid. No free air. Vessels: Normal caliber abdominal aorta. Severe atherosclerotic calcifications.. Lymph nodes: No suspicious lymph nodes. Soft tissues: Unremarkable. . Osseous structures: No acute fracture or subluxation. No suspicious osseous lesions. Degenerative changes of the visualized thoracolumbar spine. IMPRESSION: 1. Dilated common bile duct. Recommend further evaluation with MRCP. 2. Active gastrointestinal hemorrhage cannot be evaluated for on this study due to lack of IV contrast. Colonic diverticulosis without evidence of diverticulitis. 3. Severe atherosclerotic vascular disease. ENT: KEN BENTLEY ACCT: [id number] UNIT: [id number] : 1940 LOC: [facility] ROOM / BED: [facility]T / B AGE / SEX: 85 / F ADM STATUS: ADM IN SERVICE 0400 ORDERING PHYSICIAN: JESSICA WONG PROCEDURE(s): CXR1 - CHEST XRAY 1 VIEW REASON: dyspnea ORDER NUMBER(s): [id number], ACCESSION NUMBER(s): [id number] CHEST RADIOGRAPH Indication: dyspnea Technique: Single frontal view of the chest was obtained COMPARISON: XY CHEST PORTABLE on DOS: 10/22/25, XY CHEST PORTABLE on DOS: 08/13/25, XY CHEST PORTABLE on DOS: 08/10/25, XY CHEST PORTABLE on DOS: 08/09/25, XY CHEST PORTABLE on DOS: 06/30/25 FINDINGS: Lines and Tubes: Left chest wall pacemaker. Lungs: Diffuse increased interstitial prominence. Pleura: No effusion. No pneumothorax. Cardiomediastinal contours: Cardiomegaly. Bones: Unremarkable IMPRESSION: Cardiomegaly with probable mild pulmonary vascular congestion, unchanged. PATIENT: KEN BENTLEY ACCT: [id number] UNIT: [id number] : 1940 LOC: ER ROOM / BED: / AGE / SEX: 85 / F ADM STATUS: REG ER SERVICE 1228 ORDERING PHYSICIAN: KELLEY SUTHERLAND DO PROCEDURE(s): CXRP - CHEST PORTABLE REASON: sob/cp ORDER NUMBER(s): [id number], ACCESSION NUMBER(s): [id number] EXAM: XY CHEST PORTABLE HISTORY: sob/cp COMPARISON: XY CHEST PORTABLE on DOS: 08/13/25, XY CHEST PORTABLE on DOS: 08/10/25, XY CHEST PORTABLE on DOS: 08/09/25, XY CHEST PORTABLE on DOS: 06/30/25, XY CHEST XRAY 1 VIEW on DOS: 06/27/25 TECHNIQUE: Portable upright AP view of the chest was performed. FINDINGS: Left chest pacemaker is re-identified. There is diffuse interstitial prominence throughout both lungs, increased versus prior chest x-ray. No pneumothorax or consolidative infiltrates. The heart is not enlarged. IMPRESSION: Diffusely increased interstitial prominence may be due to worsening CHF, interstitial pneumonia, or reactive airways disease. Condition at Discharge: Stable Final Diagnosis/Problems List # Acute blood loss anemia # Probable GI bleed # Severe normocytic anemia with iron deficiency # Acute on chronic diastolic heart failure # Paroxysmal Atrial fibrillation (CHADS VASC 5) secondary hypercoagulability state # Severe mitral stenosis # NSTEMI probable typr II # History of aortic stenosis s/p TAVR # Non Affiliated arrhythmia s/p PPM # Chronic kidney disease stage IV # COPD exacerbation # Hypertension # thrombus in the medial branch of the basilic vein # diverticulosis with the diverticulitis-CT scan finding # dilated common bile duct Discharge Disposition: Home Discharge Instruct/Medications Diet: Consistent carbohydrate, Cardiac 2g Na,low cholest Activity: No Restrictions, As Tolerated Follow Up/Referral: Follow up with Dr. Rouse in [place] clinic (Saturday pm clinic) in 1 week Follow up with PCP in 1 week Follow up outpatient with Cardiology in 1 week next week follow up outpatient with GI in 1 week Medications: Per EMR Scheduled Allopurinol (Allopurinol), 1 TAB PO DAILY, (Reported) Amiodarone HCl (Amiodarone HCl), 1 TAB PO BID, (Reported) Apixaban Base (Eliquis), 1 TAB PO BID, (Reported) Atorvastatin Calcium (Lipitor), 1 TAB PO DAILY, (Reported) Buspirone Hcl (Buspirone Hcl), 10 MG PO Q12HR, (Reported) Carvedilol (Carvedilol), 1 TAB PO BID, (Reported) Colchicine (Colchicine), 1 CAP PO DAILY, (Reported) Ferrous Sulfate (Iron (Ferrous Sulfate)), 50 MG PO MWF Furosemide (Furosemide), 1 TAB PO DAILY, (Reported) Montelukast Sodium (Montelukast Sodium), 1 TAB PO DAILY, (Reported) Pantoprazole Sodium Sesquihydr (Protonix), 1 TAB PO QAM, (Reported) Sildenafil Citrate (Sildenafil Citrate), 1 TAB PO TID, (Reported) Scheduled PRN Albuterol Sulfate (Albuterol Sulfate Hfa), 2 PUFF IN QID PRN for SHORTNESS OF BREATH, (Reported) Discharge Statement: "Patient was advised to return to the ER or call 911 if any headaches, dizziness, shortness of breath, chest pain, abdominal pain, bleeding, fevers, or worsening of medical condition. Patient was counseled about treatment plan, medications, possible side effects, patientverbalized understanding. All questions were answered to the best of my ability. This discharge took greater then 30 minutes in planning, reviewing documentation, counseling the patient, and discussing with other team members." ASSESSMENT ASSESSMENT Assessment Anemia of chronic disease AFib Visit Coding STANDARD RES Billing Provider: TOOTIE FLORIAN MD Date of Service if different f: Oct 25, 2025 Common Visit Codes: 88654-MLN/OBS DISCH DAY >30min JESSICA ROUSE RESIDENT Oct 25, 2025 11:48 TOOTIE FLORIAN MD Oct 26, 2025 18:51
[2025-10-25 13:16] LABS: Urine Protein, UAD Negative (Negative)
--- NOTE | 2025-10-25 14:09 | DVHPN2 ---
Subjective No changes Discharge planning at this time Changes from previous H/P or p: No Changes Objective Vitals Vital Signs Date Time Temp Pulse Resp B/P (MAP) Pulse Ox O2 Delivery O2 Flow Rate FiO2 10/25/25 13:58 96 Nasal Cannula 1.0 10/25/25 13:58 74 18 10/25/25 13:58 24 10/25/25 13:02 98.0 145/66 (92) 98.0 Intake/Output Intake and Output 10/25/25 07:00 Intake Total 1840 ml Balance 1840 ml Intake Oral 1700 ml IV Total 140 ml # Voids 7 Exam Gen: Appears stated age, NAD HEENT: PERRLA, mucous membranes moist Heart: RRR, normal S1 and S2 Lungs: Bilateral air entry, no rales Abd: Normoactive bowel sounds, soft, nontender, nondistended. Ext: + edema Neuro: Alert and oriented x 4 Medications Current Medications Medications Dose Ordered Sig/Payam Route Start Time Stop Time Status Last Admin Dose Admin Albuterol 2.5 mg Q8HR NEB 10/22/25 22:00 10/25/25 13:58 2.5 MG Ipratropium [place] 0.5 mg Q8HR NEB 10/22/25 22:00 10/25/25 13:58 0.5 MG Morphine Sulfate 2 mg Q4HPRN PRN IV 10/22/25 14:45 Iron Sucrose 110 ml @ 110 mls/hr DAILY@1200 IV 10/23/25 12:00 10/27/25 11:59 10/24/25 11:03 110 MLS/HR Methylprednisolone Sodium Succinate 40 mg BID IV 10/23/25 22:00 10/24/25 11:00 40 MG Guaifenesin/ Dextromethorphan 10 ml Q4HP PRN PO 10/24/25 09:30 10/25/25 03:50 10 ML Acetylcysteine 100 mg Q8HR NEB 10/24/25 14:00 10/25/25 13:57 100 MG Pantoprazole Sodium 40 mg Q12HR IV 10/24/25 10:45 10/24/25 11:02 40 MG Laboratory Results Laboratory Tests 10/25/25 05:43 Chemistry Test 10/25/25 05:43 Calcium Level 9.1 mg/dL (8.7-10.4) Phosphorus Level 3.0 mg/dL (2.4-5.1) HgA1c, TSH Test 10/25/25 05:43 Thyroid Stimulating Hormone (TSH) 1.47 uIU/mL (0.55-4.78) Urinalysis Test 10/23/25 10:00 10/25/25 06:00 Urine Creatinine 87.12 mg/dL (30.0-125.0) Urine Sodium 54 mmol/L (40-220) Urine Total Protein 20.4 mg/dL (1-14) H Urine Color Light-yellow (Yellow) Urine Clarity Clear (Clear) Urine pH 5.5 (5.0-9.0) Urine Specific [place] 1.017 (1.001-1.035) Urine Protein Negative (Negative) Urine Ketones Negative (Negative) Urine Blood Negative /uL (Negative) Urine Nitrite Negative (Negative) Urine Bilirubin Negative (Negative) Urine Urobilinogen Normal mg/dL (Negative) Urine Leukocyte Esterase Negative /uL (Negative) Urine RBC <1 /hpf (0 - 4) Urine Microscopic WBC < 1 /HPF (0-5) Urine Squamous Epithelial Cells Few /hpf (<5) Urine Bacteria Few /hpf (None Seen) H Urine Hyaline Casts Few /lpf (0 - 2) Urine Mucus Few (None Seen) Urine Glucose Normal mg/dL (Normal) Assessment/Plan Assessment/Plan Symptomatic anemia Shortness of breath CHF Acute on chronic kidney injury Plan Discussed with Dr. Vance has had a recent negative GI workup Protonix Outpatient GI follow-up recommended Plan discussed with: Patient Date of Service: Oct 25, 2025 Billing Provider: GERTRUDE WOODS Common Visit Codes: 69696-RFFIATPCYZ INP/OBS CARE(HIGH) GERTRUDE WOODS Oct 25, 2025 14:09
--- NOTE | 2025-10-25 14:25 | DVHPN2 ---
Progress Note Date Seen: Oct 25, 2025 Medical Necessity Reason Pt with a Central, PICC or Fol: No Objective vital signs Vital Sign Date Time Temp Pulse Resp B/P (MAP) Pulse Ox O2 Delivery O2 Flow Rate FiO2 10/25/25 14:06 75 20 100 10/25/25 13:58 Nasal Cannula 1.0 10/25/25 13:58 24 10/25/25 13:02 98.0 145/66 (92) 98.0 Total Intake and Output 10/24/25 10/24/25 10/25/25 15:00 23:00 07:00 Intake Total 140 ml 800 ml 900 ml Balance 140 ml 800 ml 900 ml medications Current Medications Medications Dose Ordered Sig/Payam Route Start Time Stop Time Status Last Admin Dose Admin Albuterol 2.5 mg Q8HR NEB 10/22/25 22:00 10/25/25 13:58 2.5 MG Ipratropium Dilliner 0.5 mg Q8HR NEB 10/22/25 22:00 10/25/25 13:58 0.5 MG Morphine Sulfate 2 mg Q4HPRN PRN IV 10/22/25 14:45 Iron Sucrose 110 ml @ 110 mls/hr DAILY@1200 IV 10/23/25 12:00 10/27/25 11:59 10/24/25 11:03 110 MLS/HR Methylprednisolone Sodium Succinate 40 mg BID IV 10/23/25 22:00 10/24/25 11:00 40 MG Guaifenesin/ Dextromethorphan 10 ml Q4HP PRN PO 10/24/25 09:30 10/25/25 03:50 10 ML Acetylcysteine 100 mg Q8HR NEB 10/24/25 14:00 10/25/25 13:57 100 MG Pantoprazole Sodium 40 mg Q12HR IV 10/24/25 10:45 10/24/25 11:02 40 MG Examination: GENERAL:Abnormal, HEENT:Abnormal, LUNGS:Abnormal, CVS:Abnormal, ABDOMEN:Abnormal laboratory and microbiology Laboratory Tests 10/25/25 05:43 Test 10/25/25 05:43 Range/Units Serum Glucose 96 74-106 mg/dL Problem List/Assessment/Plan Problem List/Assessment/Plan anemia r/o GI bleed mitral stenosis hx of ppm hx of tavr pt can proceed to any GI procedures hold doac not a suitable candidate for any surgical valve procedures medical therapy and supportive care pt seen with Foreign [facility] Plan discussed with: Patient Date of Service: Oct 25, 2025 Billing Provider: JENN TORRE MD Common Visit Codes: NOT BILLABLE JENN TORRE MD Oct 25, 2025 14:25
--- NOTE | 2025-10-26 01:05 | DVHPN2 ---
Progress Note - Dictate Date Seen: Oct 25, 2025 Medical Necessity Reason Pt with a Central, PICC or Fol: No Subjective Patient was seen and evaluated in follow up. The patient can proceed with GI procedures. Hold doac. Patient is not a suitable candidate for any surgical valve procedures. Telemetry reviewed. vital signs Vital Sign Date Time Temp Pulse Resp B/P (MAP) Pulse Ox O2 Delivery O2 Flow Rate FiO2 10/25/25 17:35 97.8 74 20 99 10/25/25 17:00 135/75 (95) 10/25/25 16:15 1.0 24 10/25/25 13:58 Nasal Cannula Total Intake and Output 10/25/25 10/25/25 10/26/25 15:00 23:00 07:00 Intake Total 1060 ml Balance 1060 ml objective GENERAL: Alert and oriented x 3. No acute distress. EYES: PERRL, EOMI. Anicteric. HENT: Moist mucous membranes. LUNGS: Clear to auscultation bilaterally. CARDIOVASCULAR: Regular rate and rhythm. ABDOMEN: Soft, nontender and nondistended. EXTREMITIES: No edema. NEUROLOGIC: No focal neurological deficits. SKIN: Warm, dry. laboratory and microbiology Laboratory Tests 10/25/25 05:43 Test 10/25/25 05:43 Range/Units Serum Glucose 96 74-106 mg/dL Problem List Acute blood loss anemia. Acute on chronic diastolic heart failure. Chronic kidney disease stage 4. Atrial fibrillation. Type 2 myocardial infarction. Chronic obstructive pulmonary disease. Hypertension. Assessment/Plan Continued all current supportive medical care. Morphine for pain management. GI prophylactics. Additional plan as per the hospital course. Plan discussed with: Patient CHELY SUMNER MD Oct 26, 2025 01:05
== END 2025-10-25 18:00 | disposition home or self-care (01) | DRG 377 ==
LOC: ER 12:11 → OVERFLOW 14:27 → TELE-EAST 16:49
PROVIDERS: ADMIT Internal Medicine Geriatric Medicine; ATTEND Internal Medicine Geriatric Medicine
PROC: 30233N1 Transfusion of Nonautologous Red Blood Cells into Peripheral Vein, Percutaneous Approach (ICD-10-PCS; principal; 2025-10-22)
DX: K57.31 Diverticulosis of large intestine without perforation or abscess with bleeding (principal); I21.A1 Myocardial infarction type 2; I50.33 Acute on chronic diastolic (congestive) heart failure; I82.612 Acute embolism and thrombosis of superficial veins of left upper extremity; D62 Acute posthemorrhagic anemia; I13.0 Hypertensive heart and chronic kidney disease with heart failure and stage 1 through stage 4 chronic kidney disease, or unspecified chronic kidney disease; D63.8 Anemia in other chronic diseases classified elsewhere; K83.8 Other specified diseases of biliary tract; E86.9 Volume depletion, unspecified; I48.0 Paroxysmal atrial fibrillation; N17.9 Acute kidney failure, unspecified; Z79.01 Long term (current) use of anticoagulants; T45.515A Adverse effect of anticoagulants, initial encounter; J44.1 Chronic obstructive pulmonary disease with (acute) exacerbation; N18.4 Chronic kidney disease, stage 4 (severe); Z95.2 Presence of prosthetic heart valve; E66.01 Morbid (severe) obesity due to excess calories; I05.0 Rheumatic mitral stenosis; K21.9 Gastro-esophageal reflux disease without esophagitis; M10.9 Gout, unspecified; Z95.0 Presence of cardiac pacemaker; I25.2 Old myocardial infarction; Z79.899 Other long term (current) drug therapy; Z88.6 Allergy status to analgesic agent; Z68.35 Body mass index [BMI] 35.0-35.9, adult; Z88.5 Allergy status to narcotic agent; Z87.891 Personal history of nicotine dependence; Z82.49 Family history of ischemic heart disease and other diseases of the circulatory system; Y92.89 Other specified places as the place of occurrence of the external cause
CPT/HCPCS: 36415; 71045; 74176; 76705; 76775; 80048; 80053; 80061; 80307; 81001; 82306; 82570; 82607; 82728; 82746; 83010; 83036; 83540; 83550; 83605; 83735; 83880; 84100; 84156; 84300; 84443; 84484; 84550; 85014; 85018; 85025; 85045; 85610; 85730; 86850; 86900; 86901; 86920; 93005; 93971; 94640; G0378; J1756; J2470

== ENCOUNTER 2025-10-27 07:44 | Inpatient (IN) | payer MEDICARE, MEDICAID ==
[~2025-10-27] VITALS: Ht 162.6 cm; Wt 96.7 kg
[~2025-10-27 07:44] MED LIST changes: +BUSP10TA90 PO; +FERR1TAB36 PO
[2025-10-27 08:30] VITALS: PULSE 101; RESP 33; O2SAT 94
[2025-10-27 08:43] LABS: Hemoglobin 9.7 g/dL (12.2-16.2); Mean Corpuscular Volume 83.1 fL (80.0-100.0)
[2025-10-27 08:46] LABS: Hematocrit 30.8 % (36.0-46.0); Mean Corpuscular Hemoglobin 26.3 pg (28.0-32.0); Nucleated Red Blood Cells % 0.1 %
--- NOTE | 2025-10-27 08:51 | DVH ---
CHEST RADIOGRAPH Indication: sob Technique: Single frontal view of the chest was obtained COMPARISON: XY CHEST XRAY 1 VIEW on DOS: 10/23/25, XY CHEST PORTABLE on DOS: 10/22/25, XY CHEST PORTABLE on DOS: 08/13/25, XY CHEST PORTABLE on DOS: 08/10/25, XY CHEST PORTABLE on DOS: 08/09/25 FINDINGS: Lines and Tubes: Left chest wall pacemaker. Lungs: Increased interstitial prominence. This may represent pulmonary vascular congestion and/or viral pneumonia. Pleura: No effusion. No pneumothorax. Cardiomediastinal contours: Cardiomegaly. Bones: Unremarkable IMPRESSION: Cardiomegaly. Increased interstitial prominence. This may represent pulmonary vascular congestion and/or viral pneumonia.
[2025-10-27 08:53] LABS: Chloride 102 mmol/L (98-107); Potassium 4.6 mmol/L (3.5-5.1); Sodium 137 mmol/L (136-145)
[2025-10-27 08:59] LABS: Anion Gap 11 (5-15); Calcium 9.0 mg/dL (8.7-10.4); Carbon Dioxide 24 mmol/L (20-31)
[2025-10-27 09:06] LABS: BUN/Creatinine Ratio 16.3 (10.0-20.0); Blood Urea Nitrogen 29 mg/dL (9-23); Glucose 141 mg/dL (74-106)
[2025-10-27] MEDS: KETOROLAC TROMETH 30 MG/ML 1ML VIAL IV ONE (09:14)
[2025-10-27] MEDS: VANCOMYCIN 1GM/250ML KIT 250 ML IV ONE (09:15)
[2025-10-27] MEDS: LACTATED RINGER'S 1,650 ML IV ONE (09:15)
--- NOTE | 2025-10-27 09:18 | ED.PDOC ---
SOB-HPI HPI Comments 85F with PMHx of COPD, Hyperlipidemia, and CAD brought in by EMS to the ED for chief complaint of shortness of breath. Pt called EMS this morning when she started to have increased shortness of breath. EMS arrived to the scene, and noted Pt was pale and diaphoretic with noted unstable vitals, pt was given two breathing treatments and put on supplemental oxygen and brought to the ED for further evaluation. Pt in the ED noted continued shortness of breath. Pt vitals in the ED were taken with the noted blood pressure was elevated 151/73 with noted O2 saturation O2 98% on room air with otherwise stable vitals. Pt denies any associated symptoms like chest pain, fever, headaches, or chills. Pt otherwise denies any recent sick contacts. Pt in the ED is AxOx3. Pt denies any other symptoms at this time. Chief Complaint: Shortness of Breath Time Seen by MD: 08:50 Primary Care Provider: TIFFANIE Information Source: Patient, Emergency Med Personnel Mode of Arrival: EMS Past Medical History PAST MEDICAL HISTORY: CHF, CKF, COPD, GERD, HTN, ND Surgical History: Pacemaker BUSINESS PROCESS MANAGER History: Denies all BUSINESS PROCESS MANAGER Hx Family History Family History: Reviewed,noncontributory to illness Social History Smoker: Non-Smoker Alcohol: Denies ETOH Use Drugs: Denies Drug Use Lives In: Home Constitutional: denies: chills, diaphoresis, fatigue, fever, malaise, sweats, weakness, others EENTM: denies: blurred vision, double vision, ear bleeding, ear discharge, ear drainage, ear pain, ear ringing, eye pain, eye redness, hearing loss, mouth pain, mouth swelling, nasal discharge, nose bleeding, nose congestion, nose pain, photophobia, tearing, throat pain, throat swelling, voice changes, others Respiratory: reports: SOB at rest, shortness of breath, SOB with excertion; denies: cough, hemoptysis, orthopnea, stridor, wheezing, others Cardiovascular: denies: chest pain, dizzy spells, diaphoresis, Dyspnea on exertion, edema, irregular heart beat, left arm pain, lightheadedness, palpitations, PND, syncope, others Gastrointestinal: denies: abdomen distended, abdominal pain, blood streaked bowels, constipated, diarrhea, dysphagia, difficulty swallowing, hematemesis, melena, nausea, poor appetite, poor fluid intake, rectal bleeding, rectal pain, vomiting, others Genitourinary: denies: abnormal vagina bleeding, burning, dyspareunia, dysuria, flank pain, frequency, hematuria, incontinence, pain, , vagina discharge, urgency, others Neurological: denies: dizziness, fainting, headache, left sided numbness, left sided weakness, numbness, paresthesia, pre-existing deficit, right sided numbness, right sided weakness, seizure, speech problems, tingling, tremors, weakness, others Musculoskeletal: denies: back pain, gout, joint pain, joint swelling, muscle pain, muscle stiffness, neck pain, others Integumetry: denies: bruises, change in color, change in hair/nails, dryness, laceration, lesions, lumps, rash, wounds, others Allergic/Immunocompromised: denies: Difficulty Healing, Frequent Infections, Hives, Itching, others Hematologic/Lymphatic: denies: anemia, blood clots, easy bleeding, easy bruising, swollen glands, others Endocrine: denies: excessive hunger, excessive sweating, excessive thirst, excessive urination, flushing, intolerance to cold, intolerance to heat, unexplained weight gain, unexplained weight loss, others Psychiatric: denies: anxiety, bipolar disorder, depression, hopeless, panic disorder, schizophrenia, sleepless, suicidal, others All Other Systems: Reviewed and Negative Physical Exam General Appearance: No Apparent Distress, Normal HEENT: Normal ENT Inspection, Pharynx Normal, TMs Normal Neck: Full Range of Motion, Non-Tender, Normal, Normal Inspection Respiratory: Other (tachycardic, tachypneic, increased work of breathing) Cardiovascular: No Edema, No JVD, No Murmur, No Gallop, Normal Peripheral Pulses, Regular Rate/Rhythm Breast Exam: Deferred Gastrointestinal: No Organomegaly, Non Tender, No Pulsatile Mass, Normal Bowel Sounds, Soft Genitalia: Deferred Pelvic: Deferred Rectal: Deferred Extremities: No calf tenderness, Normal capillary refill, Normal inspection, Normal range of motion, Non-tender, No pedal edema Neurologic: Alert, nutrition specialist II-XII nml as Tested, No Motor Deficits, Normal Affect, Normal Mood, No Sensory Deficits Cerebellar Function: Normal Reflexes: Normal Skin: Dry, Normal Color, Warm Lymphatic: No Adenopathy Was a procedure done? Was a procedure done?: No X-Ray, Labs, Meds, VS Vital Signs Date Time Temp Pulse Resp B/P (MAP) Pulse Ox O2 Delivery O2 Flow Rate FiO2 10/27/25 13:00 88/27 10/27/25 12:41 92/33 10/27/25 12:05 99.2 74 22 103/45 (64) 97 99.2 10/27/25 12:05 74 22 97 Nasal Cannula* 3 32 10/27/25 10:10 86 22 103/26 (51) 97 10/27/25 10:00 89 22 98/34 (55) 98 10/27/25 09:50 88 22 88/24 (45) 98 10/27/25 09:40 92 30 91/25 (47) 98 10/27/25 09:30 84 20 82/26 (44) 98 10/27/25 09:20 101 14 80/27 (44) 97 10/27/25 09:10 101 32 82/21 (41) 98 10/27/25 09:00 101 28 90/26 (47) 85 10/27/25 08:30 101.8 108 23 105/29 (54) 87 101.8 10/27/25 08:30 101 33 94 Nasal Cannula* 4 36 10/27/25 07:58 98 10/27/25 07:45 99.4 99 18 151/73 98 99.4 Lab Test 10/27/25 11:20 10/27/25 10:34 10/27/25 09:17 10/27/25 09:00 Range/Units Troponin I High Sensitivity 101 *H 106 *H </=34 ng/L Influenza Type A Antigen Negative Negative Influenza Type B Antigen Negative Negative SARS-CoV-2 Antigen (Rapid) Negative NEGATIVE Urine Color Light-yellow Yellow Urine Clarity Clear Clear Urine pH 6.0 5.0-9.0 Urine Specific [place] 1.014 1.001-1.035 Urine Protein Negative Negative Urine Ketones Negative Negative Urine Blood Negative Negative /uL Urine Nitrite Negative Negative Urine Bilirubin Negative Negative Urine Urobilinogen Normal Negative mg/dL Urine Leukocyte Esterase Negative Negative /uL Urine RBC None seen 0 - 4 /hpf Urine Microscopic WBC 1 0-5 /HPF Urine Squamous Epithelial Cells Few <5 /hpf Urine Bacteria Few H None Seen /hpf Urine Glucose Normal Normal mg/dL Test 10/27/25 08:15 Range/Units White Blood Count 17.3 #H 4.4-10.8 10^3/uL Red Blood Count 3.70 L 4.0-5.20 10^6/uL Hemoglobin 9.7 L 12.2-16.2 g/dL Hematocrit 30.8 L 36.0-46.0 % Mean Corpuscular Volume 83.1 80.0-100.0 fL Mean Corpuscular Hemoglobin 26.3 L 28.0-32.0 pg Mean Corpuscular Hemoglobin Concent 31.6 L 32.0-36.0 g/dL Red Cell Distribution Width 20.6 H 11.8-14.3 % Platelet Count 332 140-450 10^3/uL Mean Platelet Volume 8.9 6.9-10.8 fL Neutrophils (%) (Auto) 95.3 H 37.0-80.0 % Lymphocytes (%) (Auto) 1.3 L 10.0-50.0 % Monocytes (%) (Auto) 2.0 0.0-12.0 % Eosinophils (%) (Auto) 0.7 0.0-7.0 % Basophils (%) (Auto) 0.7 0.0-2.0 % Neutrophils # (Auto) 16.5 H 1.6-8.6 10 ^3/uL Lymphocytes # (Auto) 0.2 L 0.4-5.4 10 ^3/uL Monocytes # (Auto) 0.3 0-1.3 10 ^3/uL Eosinophils # (Auto) 0.1 0-0.8 10 ^3/uL Basophils # (Auto) 0.1 0-0.2 10 ^3/uL Nucleated Red Blood Cells 0.1 % Sodium Level 137 # 136-145 mmol/L Potassium Level 4.6 3.5-5.1 mmol/L Chloride Level 102 98-107 mmol/L Carbon Dioxide Level 24 20-31 mmol/L Anion Gap 11 5-15 Blood Urea Nitrogen 29 H 9-23 mg/dL Creatinine 1.78 H 0.550-1.02 mg/dL Glomerular Filtration Rate Calc 28 >90 mL/min BUN/Creatinine Ratio 16.3 10.0-20.0 Serum Glucose 141 H 74-106 mg/dL Lactic Acid Level 1.7 0.4-2.0 mmol/L Calcium Level 9.0 8.7-10.4 mg/dL Troponin I High Sensitivity 108 *H </=34 ng/L B-Type Natriuretic Peptide 647.35 0-100 pg/mL Current Medications Medications (Trade) Dose Ordered Sig/Payam Route Start Time Stop Time Status Last Admin Ketorolac Tromethamine (Toradol Injection) 15 mg ONCE ONCE IV 10/27/25 09:00 10/27/25 09:01 DC 10/27/25 09:14 Lactated Ringer's 1,650 ml @ 1,650 mls/hr ONCE ONCE IV 10/27/25 09:00 10/27/25 09:59 DC 10/27/25 09:15 Vancomycin HCl 250 ml @ 250 mls/hr ONCE ONCE IV 10/27/25 09:00 10/27/25 09:59 DC 10/27/25 09:15 Cefepime HCl 50 ml @ 50 mls/hr ONCE ONCE IV 10/27/25 09:00 10/27/25 09:59 DC 10/27/25 09:24 Lactated Ringer's 1,000 ml @ 1,000 mls/hr Q1H ONCE IV 10/27/25 10:30 10/27/25 11:29 DC 10/27/25 10:52 Norepinephrine Bitartrate 250 ml @ 3.75 mls/hr Q24H IV 10/27/25 12:15 10/27/25 12:41 [place] [address] Ph: [phone] DIAGNOSTIC IMAGING Diagnostic Imaging Report : [id number] Signed PATIENT: KEN BENTLEY ACCT: [id number] UNIT: [id number] : 1940 LOC: ER ROOM / BED: / AGE / SEX: 85 / F ADM STATUS: REG ER SERVICE [id number] ORDERING PHYSICIAN: LEXII CARTER MD PROCEDURE(s): CXRP - CHEST PORTABLE REASON: sob ORDER NUMBER(s): [id number], ACCESSION NUMBER(s): [id number] CHEST RADIOGRAPH Indication: sob Technique: Single frontal view of the chest was obtained COMPARISON: XY CHEST XRAY 1 VIEW on DOS: 10/23/25, XY CHEST PORTABLE on DOS: 10/22/25, XY CHEST PORTABLE on DOS: 08/13/25, XY CHEST PORTABLE on DOS: 08/10/25, XY CHEST PORTABLE on DOS: 08/09/25 FINDINGS: Lines and Tubes: Left chest wall pacemaker. Lungs: Increased interstitial prominence. This may represent pulmonary vascular congestion and/or viral pneumonia. Pleura: No effusion. No pneumothorax. Cardiomediastinal contours: Cardiomegaly. Bones: Unremarkable IMPRESSION: Cardiomegaly. Increased interstitial prominence. This may represent pulmonary vascular congestion and/or viral pneumonia. ATED BY: SALVADOR ENGEL MD DICTATED DATE/TIME: 10/27/25848 SIGNED BY: SALVADOR ENGEL MD SIGNED DATE/TIME: 10/27/25848 CC: Time of 1ST Reevaluation: 09:20 Patient Education/Counseling: Diagnosis, Treatment Family Education/Counseling: No Family Present SEPSIS Sepsis Screen Date sepsis recognized/suspect: Oct 27, 2025 Time Sepsis recognized/suspect: 0745 Recent Procedure: No On Antibiotic Therapy: No Respiratory Rate >20: No Heart Rate >90: Yes Temp<36 C (96.8 F) or >38.3 C: No SBP <90 or MAP <65 mmHG: No New Acute Mental Status Change: No Is the patient on CPAP, BIPAP,: No Physician Orders Chest Portable (10/27/25 07:54) Electrocardigram (10/27/25 07:54) Blood Culture (10/27/25 07:54) Electrocardigram (10/27/25 08:54) Electrocardigram (10/27/25 10:54) Notify Md If Map <65 Or Bp<90 (10/27/25 08:54) If Map<65 Start Vasopressor (10/27/25 08:54) Sepsis Reassesment After Fluid (10/27/25 09:54) Insert [place] Catheter QSHIFT (10/27/25 12:10) Norepinephrine 8 Mg/250ml Kit (Levophed) (10/27/25 12:15) Urine Bacterial Culture (10/27/25 12:13) Vital Signs Date Time Temp Pulse Resp B/P (MAP) Pulse Ox O2 Delivery O2 Flow Rate FiO2 10/27/25 13:00 88/27 10/27/25 12:41 92/33 10/27/25 12:05 99.2 74 22 103/45 (64) 97 99.2 10/27/25 12:05 74 22 97 Nasal Cannula* 3 32 10/27/25 10:10 86 22 103/26 (51) 97 10/27/25 10:00 89 22 98/34 (55) 98 10/27/25 09:50 88 22 88/24 (45) 98 10/27/25 09:40 92 30 91/25 (47) 98 10/27/25 09:30 84 20 82/26 (44) 98 10/27/25 09:20 101 14 80/27 (44) 97 10/27/25 09:10 101 32 82/21 (41) 98 10/27/25 09:00 101 28 90/26 (47) 85 10/27/25 08:30 101.8 108 23 105/29 (54) 87 101.8 10/27/25 08:30 101 33 94 Nasal Cannula* 4 36 10/27/25 07:58 98 10/27/25 07:45 99.4 99 18 151/73 98 99.4 Laboratory Tests Test 10/27/25 08:15 Lactic Acid Level 1.7 mmol/L (0.4-2.0) White Blood Count 17.3 10^3/uL (4.4-10.8) #H Medications Medications Dose Ordered Sig/Payam Route Start Time Stop Time Status Last Admin Dose Admin Cefepime HCl 50 ml @ 50 mls/hr ONCE ONCE IV 10/27/25 09:00 10/27/25 09:59 DC 10/27/25 09:24 Ketorolac Tromethamine 15 mg ONCE ONCE IV 10/27/25 09:00 10/27/25 09:01 DC 10/27/25 09:14 Lactated Ringer's 1,000 ml @ 1,000 mls/hr Q1H ONCE IV 10/27/25 10:30 10/27/25 11:29 DC 10/27/25 10:52 Lactated Ringer's 1,650 ml @ 1,650 mls/hr ONCE ONCE IV 10/27/25 09:00 10/27/25 09:59 DC 10/27/25 09:15 Norepinephrine Bitartrate 250 ml @ 3.75 mls/hr Q24H IV 10/27/25 12:15 12/17/25 12:41 Vancomycin HCl 250 ml @ 250 mls/hr ONCE ONCE IV 10/27/25 09:00 10/27/25 09:59 DC 10/27/25 09:15 Critical Care Note Critical Care Time?: No Stability Stability form required: No Heart Score Heart Score: Heart Score Response (Comments) Value History Moderate Suspicious 1 Age >65 2 Risk Factors 1 or 2 risk factors 1 Troponin >3 x's Normal limit 2 Total 6 I personally scribed for LEXII CARTER MD ([email or web address]) on 10/27/25 at 09:18. Electronically submitted by Marge Solano ([email or web address]). I personally scribed for LEXII CARTER MD ([email or web address]) on 10/27/25 at 09:19. Electronically submitted by Marge Solano ([email or web address]). I personally scribed for LEXII CARTER MD ([email or web address]) on 10/27/25 at 09:48. Electronically submitted by Dawna Trejo ([email or web address]). I personally scribed for LEXII CARTER MD ([email or web address]) on 10/27/25 at 11:55. Electronically submitted by Dawna Trejo ([email or web address]). I personally scribed for LEXII CARTER MD ([email or web address]) on 10/27/25 at 18:16. Electronically submitted by Dawna Trejo ([email or web address]). LEXII CARTER MD Oct 27, 2025 09:18
[2025-10-27 09:20] LABS: Urine Protein, UAD Negative (Negative)
[2025-10-27] MEDS: CEFEPIME 1GM/50ML 50 ML IV ONE (09:24)
[2025-10-27] MEDS: LACTATED RINGER'S 1,000 ML IV ONE (10:52)
[2025-10-27 11:20] LABS: COVID19 ANTIGEN SOFIA FIA NEGATIVE (NEGATIVE)
[2025-10-27 12:05] VITALS: PULSE 74; RESP 22; O2SAT 97
[2025-10-27] MEDS: NOREPINEPHRINE 8 MG/250ML KIT 250 ML IV SCH (12:41)
[2025-10-27] MEDS ORDERED: NITROGLYCERIN 0.4 MG SL TAB SL PRN (13:30)
[2025-10-27] MEDS ORDERED: ACETAMINOPHEN 325 MG TAB PO PRN (13:30)
[2025-10-27] MEDS ORDERED: ONDANSETRON HCL 4 MG/2 ML VIAL IV PRN (13:30)
[2025-10-27] MEDS ORDERED: HYDROcodone-ACET 5/325MG TAB PO PRN (13:30)
[2025-10-27] MEDS ORDERED: MORPHINE SULFATE INJ 2 MG/ml SYRG IV PRN (13:30)
--- NOTE | 2025-10-27 13:48 | DVHHP2 ---
History of Present Illness Reason for Visit: Shortness of breath History of Present Illness Liliam Shook is an 85-year-old female with past medical history of CHF, CKF, COPD, GERD, hypertension, LA, S/P TAVR, atrial fibrillation, GOUT, hard of hearing, and pacemaker, who was brought to the hospital by EMS for shortness of breath. Patient resides at [facility] on the minimal assistance side. When the staff went to check on her they found her short of breath with increased work of breathing and called EMS. Son is at the bedside at time of assessment. Patient and Son state that since she had her TAVR in March 2024 she has been in and out of the hospital frequently. He states she gets transferred to a SNF for rehabilitation, and ends up wanting to leave and go home too soon because she misses her friends. Cardiovascular: AFIB, CHF, HTN, hyperipidemia Pulmonary: COPD Rheumatologic: Gout Renal/: Chronic renal insuff Past Surgical History: Other (Pacemaker, TAVR, varicose vein surgery) Smoke: No ALCOHOL: none Drugs: None Lives: [facility] Domestic Violence: Neg Review of Systems Constitutional: No: Fever, Chills, Sweats, Weakness, Malaise, Other Eyes: No: Pain, Vision change, Conjunctivae inflammation, Eyelid inflammation, Other, Redness ENT: No: Ear pain, Ear discharge, Nose pain, Nose discharge, Nose congestion, Mouth pain, Mouth swelling, Throat pain, Throat swelling, Other Respiratory: Shortness of breath, SOB with excertion, Wheezing; No: Cough, Dry, Hemoptysis, Pleuritic Pain, Sputum, Wheezing, Other Cardiovascular: No: Chest Pain, Palpitations, Orthopnea, Paroxysmal Noc. Dyspnea, Edema, Lt Headedness, Other Gastrointestinal: No: Nausea, Vomiting, Abdominal Pain, Diarrhea, Constipation, Melena, Hematochezia, Other Genitourinary: No Dysuria, No Frequency, No Incontinence, No Hematuria, No Retention, No Other Musculoskeletal: No: other, neck pain, shoulder pain, arm pain, back pain, hand pain, leg pain, foot pain Skin: No: Rash, Lesions, Jaundice, Bruising, Other Neurological: No: Weakness, Numbness, Incoordination, Change in speech, Confusion, Seizures, Other Allergies: Coded Allergies: Acetaminophen (Verified Allergy, Unknown, 08/09/25) Hydrocodone (Verified Allergy, Unknown, 08/09/25) Tramadol (Verified Adverse Reaction, Unknown, 06/18/25) Medications Current Medications Medications Dose Ordered Sig/Payam Route Start Time Stop Time Status Last Admin Dose Admin Norepinephrine Bitartrate 250 ml @ 3.75 mls/hr Q24H IV 10/27/25 12:15 10/27/25 12:41 3.75 MLS/HR Sodium Chloride 10 ml Q8HR IV 10/27/25 14:00 UNV Acetaminophen/ Hydrocodone Bitart 1 tab Q4HP PRN PO 10/27/25 13:30 UNV Ondansetron HCl 4 mg Q4HP PRN IV 10/27/25 13:30 UNV Docusate Sodium 100 mg BIDPRN PRN PO 10/27/25 13:30 UNV Enoxaparin Sodium 40 mg DAILY SC 10/28/25 10:00 UNV Acetaminophen 650 mg Q6HP PRN PO 10/27/25 13:30 UNV Nitroglycerin 0.4 mg Q5MINP PRN SL 10/27/25 13:30 UNV Morphine Sulfate 2 mg Q30M PRN IV 10/27/25 13:30 UNV Exam Vital Signs Vital Signs Date Time Temp Pulse Resp B/P (MAP) Pulse Ox O2 Delivery O2 Flow Rate FiO2 10/27/25 12:41 92/33 10/27/25 12:05 99.2 74 22 97 99.2 10/27/25 12:05 Nasal Cannula* 3 32 General Appearance: Alert, Oriented X3, Cooperative, moderate distress HEENT: Atraumatic, PERRLA, Mucous membr. moist/pink Respiratory: Other (bilateral wheezing, diminished breath sounds) Cardiovascular: Regular rate, Normal S1, Normal S2 Abdominal: Normal bowel sounds Extremities: No clubbing, No cyanosis, Other (bilateral lower extremity edema) Skin: No rashes, No breakdown, No significant lesion Neuro: Normal speech, Other (generalized weakness) Psych/Mental Status: Mental status NL Labs/Xrays Labs Test 10/27/25 11:20 10/27/25 10:34 10/27/25 09:00 10/27/25 08:15 Range/Units Troponin I High Sensitivity 101 *H </=34 ng/L Influenza Type A Antigen Negative Negative Influenza Type B Antigen Negative Negative SARS-CoV-2 Antigen (Rapid) Negative NEGATIVE Urine Color Light-yellow Yellow Urine Clarity Clear Clear Urine pH 6.0 5.0-9.0 Urine Specific [place] 1.014 1.001-1.035 Urine Protein Negative Negative Urine Ketones Negative Negative Urine Blood Negative Negative /uL Urine Nitrite Negative Negative Urine Bilirubin Negative Negative Urine Urobilinogen Normal Negative mg/dL Urine Leukocyte Esterase Negative Negative /uL Urine RBC None seen 0 - 4 /hpf Urine Microscopic WBC 1 0-5 /HPF Urine Squamous Epithelial Cells Few <5 /hpf Urine Bacteria Few H None Seen /hpf Urine Glucose Normal Normal mg/dL White Blood Count 17.3 #H 4.4-10.8 10^3/uL Red Blood Count 3.70 L 4.0-5.20 10^6/uL Hemoglobin 9.7 L 12.2-16.2 g/dL Hematocrit 30.8 L 36.0-46.0 % Mean Corpuscular Volume 83.1 80.0-100.0 fL Mean Corpuscular Hemoglobin 26.3 L 28.0-32.0 pg Mean Corpuscular Hemoglobin Concent 31.6 L 32.0-36.0 g/dL Red Cell Distribution Width 20.6 H 11.8-14.3 % Platelet Count 332 140-450 10^3/uL Mean Platelet Volume 8.9 6.9-10.8 fL Neutrophils (%) (Auto) 95.3 H 37.0-80.0 % Lymphocytes (%) (Auto) 1.3 L 10.0-50.0 % Monocytes (%) (Auto) 2.0 0.0-12.0 % Eosinophils (%) (Auto) 0.7 0.0-7.0 % Basophils (%) (Auto) 0.7 0.0-2.0 % Neutrophils # (Auto) 16.5 H 1.6-8.6 10 ^3/uL Lymphocytes # (Auto) 0.2 L 0.4-5.4 10 ^3/uL Monocytes # (Auto) 0.3 0-1.3 10 ^3/uL Eosinophils # (Auto) 0.1 0-0.8 10 ^3/uL Basophils # (Auto) 0.1 0-0.2 10 ^3/uL Nucleated Red Blood Cells 0.1 % Sodium Level 137 # 136-145 mmol/L Potassium Level 4.6 3.5-5.1 mmol/L Chloride Level 102 98-107 mmol/L Carbon Dioxide Level 24 20-31 mmol/L Anion Gap 11 5-15 Blood Urea Nitrogen 29 H 9-23 mg/dL Creatinine 1.78 H 0.550-1.02 mg/dL Glomerular Filtration Rate Calc 28 >90 mL/min BUN/Creatinine Ratio 16.3 10.0-20.0 Serum Glucose 141 H 74-106 mg/dL Lactic Acid Level 1.7 0.4-2.0 mmol/L Calcium Level 9.0 8.7-10.4 mg/dL B-Type Natriuretic Peptide 647.35 0-100 pg/mL CHEST RADIOGRAPH FINDINGS: Lines and Tubes: Left chest wall pacemaker. Lungs: Increased interstitial prominence. This may represent pulmonary vascular congestion and/or viral pneumonia. Pleura: No effusion. No pneumothorax. Cardiomediastinal contours: Cardiomegaly. Bones: Unremarkable IMPRESSION: Cardiomegaly. Increased interstitial prominence. This may represent pulmonary vascular congestion and/or viral pneumonia. SEPSIS Sepsis Screen Date sepsis recognized/suspect: Oct 27, 2025 Time Sepsis recognized/suspect: 1205 Recent Procedure: No On Antibiotic Therapy: Yes Respiratory Rate >20: Yes Heart Rate >90: No Temp<36 C (96.8 F) or >38.3 C: No SBP <90 or MAP <65 mmHG: Yes New Acute Mental Status Change: No Is the patient on CPAP, BIPAP,: No IV fluid challenge completed?: Yes Physician Orders Chest Portable (10/27/25 07:54) Electrocardigram (10/27/25 07:54) Blood Culture (10/27/25 07:54) Electrocardigram (10/27/25 08:54) Electrocardigram (10/27/25 10:54) Notify Md If Map <65 Or Bp<90 (10/27/25 08:54) If Map<65 Start Vasopressor (10/27/25 08:54) Sepsis Reassesment After Fluid (10/27/25 09:54) Insert [place] Catheter QSHIFT (10/27/25 12:10) Norepinephrine 8 Mg/250ml Kit (Levophed) (10/27/25 12:15) Urine Bacterial Culture (10/27/25 12:13) Admit (10/27/25 13:16) Code Status (10/27/25 13:16) Sodium Chloride Lock (Saline Lock Ns) (10/27/25 14:00) Hydrocodone-Acet 5/325mg Tab ([place] (10/27/25 13:30) Ondansetron Hcl (Zofran) (10/27/25 13:30) Docusate Sodium Capsule (Colace Capsule) (10/27/25 13:30) Enoxaparin Sodium (Lovenox) (10/28/25 10:00) Fall Risk Precautions In Place QSHIFT (10/27/25 13:16) Complete Blood Count (10/28/25 04:00) Comprehensive Metabolic Panel (10/28/25 04:00) Cardiac Diet-2gna,Lofat,Lochol (10/27/25 Lunch) Pt Request For Service (10/27/25 13:16) Condition: Critical (10/27/25 13:16) Acetaminophen Tablet (Tylenol Tablet) (10/27/25 13:30) Nitroglycerin Sublingual (Ntrostat Subli (10/27/25 13:30) Morphine Sulfate Injection (10/27/25 13:30) Stat Ekg For Chest Pain (10/27/25 13:16) Notify Md Of Changes From Base (10/27/25 13:16) Crown Ceramist For 24 Hours (10/27/25 13:16) Emergency Dysrhythmia Protocol (10/27/25 13:16) Rhythm Strips Once Every Shift (10/27/25 13:16) Oxygen By Nasal Cannula (10/27/25 13:16) Vital Signs Date Time Temp Pulse Resp B/P (MAP) Pulse Ox O2 Delivery O2 Flow Rate FiO2 10/27/25 12:41 92/33 10/27/25 12:05 99.2 74 22 103/45 (64) 97 99.2 10/27/25 12:05 74 22 97 Nasal Cannula* 3 32 10/27/25 10:10 86 22 103/26 (51) 97 10/27/25 10:00 89 22 98/34 (55) 98 10/27/25 09:50 88 22 88/24 (45) 98 10/27/25 09:40 92 30 91/25 (47) 98 10/27/25 09:30 84 20 82/26 (44) 98 10/27/25 09:20 101 14 80/27 (44) 97 10/27/25 09:10 101 32 82/21 (41) 98 10/27/25 09:00 101 28 90/26 (47) 85 10/27/25 08:30 101.8 108 23 105/29 (54) 87 101.8 10/27/25 08:30 101 33 94 Nasal Cannula* 4 36 10/27/25 07:58 98 10/27/25 07:45 99.4 99 18 151/73 98 99.4 Laboratory Tests Test 10/27/25 08:15 Lactic Acid Level 1.7 mmol/L (0.4-2.0) White Blood Count 17.3 10^3/uL (4.4-10.8) #H Medications Medications Dose Ordered Sig/Payam Route Start Time Stop Time Status Last Admin Dose Admin Cefepime HCl 50 ml @ 50 mls/hr ONCE ONCE IV 10/27/25 09:00 10/27/25 09:59 DC 10/27/25 09:24 50 MLS/HR Ketorolac Tromethamine 15 mg ONCE ONCE IV 10/27/25 09:00 10/27/25 09:01 DC 10/27/25 09:14 15 MG Lactated Ringer's 1,000 ml @ 1,000 mls/hr Q1H ONCE IV 10/27/25 10:30 10/27/25 11:29 DC 10/27/25 10:52 1,000 MLS/HR Lactated Ringer's 1,650 ml @ 1,650 mls/hr ONCE ONCE IV 10/27/25 09:00 10/27/25 09:59 DC 10/27/25 09:15 1,650 MLS/HR Norepinephrine Bitartrate 250 ml @ 3.75 mls/hr Q24H IV 10/27/25 12:15 10/27/25 12:41 3.75 MLS/HR Vancomycin HCl 250 ml @ 250 mls/hr ONCE ONCE IV 10/27/25 09:00 10/27/25 09:59 DC 10/27/25 09:15 250 MLS/HR Assessment/Plan Assessment/Plan Assessment: Sepsis, unspecified organism, Possible pneumonia, Hypotension, Leukocytosis, COPD, Atrial fibrillation, Hyperlipemia, Hypertension, Plan: Admit to ICU, IV vasopressors as needed, IV antibiotics, IV hydration, Blood cultures, Urine culture, Daily weight, Strict I&Os, Home medications reconciled, Plan discussed with: Patient, Son My Orders Orders - HAM DAVENPORT Procedure Category Date Status Time Admit ADMIT 10/27/25 Transmitted 13:16 Code Status CODE 10/27/25 Transmitted 13:16 Sodium Chloride Lock PHA 10/27/25 Logged (Saline Lock Ns) 14:00 Hydrocodone-Acet PHA 10/27/25 Logged 5/325mg Tab ([place] 13:30 Ondansetron Hcl PHA 10/27/25 Logged (Zofran) 13:30 Docusate Sodium PHA 10/27/25 Logged Capsule (Colace 13:30 Enoxaparin Sodium PHA 10/28/25 Logged (Lovenox) 10:00 Fall Risk Precautions [facility] 10/27/[address] 13:16 Complete Blood Count LAB 10/28/25 Verified 04:00 Comprehensive LAB 10/28/25 Verified Metabolic Panel 04:00 Cardiac DIET 10/27/25 Transmitted Diet-2gna,Lofat,Lochol Lunch Pt Request For Service PT 10/27/25 Logged 13:16 Condition: Critical [facility] 10/27/25 In Process 13:16 Acetaminophen Tablet PHA 10/27/25 Logged (Tylenol Tablet) 13:30 Nitroglycerin PHA 10/27/25 Logged Sublingual (Ntrostat 13:30 Morphine Sulfate PHA 10/27/25 Logged Injection 13:30 Stat Ekg For Chest [facility] 10/27/25 In Process Pain 13:16 Notify Md Of Changes [facility] 10/27/25 In Process From Base 13:16 Crown Ceramist For [facility] 10/27/25 In Process 24 Hours 13:16 Emergency Dysrhythmia [facility] 10/27/25 In Process Protocol 13:16 Rhythm Strips Once [facility] 10/27/25 In Process Every Shift 13:16 Oxygen By Nasal RT 10/27/25 Transmitted Cannula 13:16 Date of Service: Oct 27, 2025 Billing Provider: HAM DAVENPORT Common Visit Codes: [id number] INP/OBS CARE (HIGH) HAM DAVENPORT Oct 27, 2025 13:48
[2025-10-27] MEDS: SODIUM CHLOR 0.9% PF (SALINE LOCK) 10ML VIAL/SYR IV SCH (14:08)
[2025-10-27] MEDS ORDERED: VANCOMYCIN PER PHARMACY 0 MG IV SCH (15:00)
[2025-10-27] MEDS: VANCOMYCIN 500mg/100mL 100 ML IV ONE (18:09)
[2025-10-27] MEDS: CARVEDILOL 3.125 MG TAB PO SCH (22:00)
[2025-10-27] MEDS: APIXABAN 2.5 MG TAB PO SCH (22:00)
[2025-10-27] MEDS: AMIODARONE HCL 200 MG TAB PO SCH (22:00)
[2025-10-27] MEDS: SILDENAFIL CITRATE 20 MG TAB PO SCH (22:00)
[2025-10-27] MEDS: ATORVASTATIN 20 MG TAB PO SCH (22:43)
[2025-10-27 23:33] VITALS: PULSE 68; RESP 17; O2SAT 100
[2025-10-28] VITALS (56 sets, daily range): BP systolic 105–155; BP diastolic 26–53; PULSE 60–78; RESP 11–28; TEMP 97.6–99; O2SAT 94–100
[2025-10-28 05:12] LABS: Hematocrit 28.4 % (36.0-46.0); Hemoglobin 9.0 g/dL (12.2-16.2); Mean Corpuscular Hemoglobin 26.3 pg (28.0-32.0); Mean Corpuscular Volume 83.3 fL (80.0-100.0); Nucleated Red Blood Cells % 0.0 %
[2025-10-28 05:14] LABS: Alanine Aminotransferase 14 U/L (7-40); Albumin 3.5 g/dL (3.2-4.8); Alkaline Phosphatase 56 U/L (46-116); Anion Gap 9 (5-15); BUN/Creatinine Ratio 19.8 (10.0-20.0); Bilirubin, Total 0.6 mg/dL (0.2-1.0); Carbon Dioxide 25 mmol/L (20-31); Chloride 105 mmol/L (98-107); Potassium 4.9 mmol/L (3.5-5.1); Sodium 139 mmol/L (136-145)
[2025-10-28 05:15] LABS: Blood Urea Nitrogen 33 mg/dL (9-23); Calcium 8.4 mg/dL (8.7-10.4); Glucose 117 mg/dL (74-106); Total Protein 5.5 g/dL (5.7-8.2)
[2025-10-28] MEDS: PANTOPRAZOLE 40 MG TAB PO SCH (06:22)
[2025-10-28] MEDS: ALLOPURINOL 100 MG TAB PO SCH (09:55)
[2025-10-28] MEDS: MONTELUKAST SODIUM 10 MG TAB PO SCH (09:55)
[2025-10-28] MEDS: guaiFENesin-DM 100/10mg/5ml SYR PO PRN (10:00)
[2025-10-28] MEDS ORDERED: CEFEPIME 1GM/50ML 50 ML IV SCH (10:00)
[2025-10-28] MEDS ORDERED: ENOXAPARIN SOD 30 MG/0.3 ML SYRINGE SC SCH (10:00)
[2025-10-28] MEDS: VANCOMYCIN 500mg/100mL 100 ML IV ONE (10:19)
[2025-10-28] MEDS: CEFEPIME 1GM/50ML 50 ML IV SCH (11:30)
[2025-10-28] MEDS: FUROSEMIDE 40 MG/4 ML VIAL IV SCH (12:45)
[2025-10-28] MEDS: methylPREDNISolone SOD SUCC 40 MG/ML VL IV SCH (12:45)
--- NOTE | 2025-10-28 12:54 | DVHPNRES ---
Progress Note Date Seen: Oct 28, 2025 Resident Creating Document: MIGUEL DUNN RESIDENT Medical Necessity Reason Pt with a Central, PICC or Fol: No Subjective Review of Systems Liliam Shoko is an 85-year-old female with past medical history of CHF, CKF, COPD, GERD, hypertension, [place], S/P TAVR, atrial fibrillation, GOUT, hard of hearing, and pacemaker, who was brought to the hospital by EMS for shortness of breath. Patient resides at [facility] on the minimal assistance side. When the staff went to check on her they found her short of breath with increased work of breathing and called EMS. Son is at the bedside at time of assessment. Patient and Son state that since she had her TAVR in March 2024 she has been in and out of the hospital frequently. He states she gets transferred to a SNF for rehabilitation, and ends up wanting to leave and go home too soon because she misses her friends. PMH: AFib, CHF, HTN, HLD, COPD, gout, CKD, PSH: TAVR, varicose vein surgery, pacemaker Social history: Lives at custodial. Denies smoking, alcohol and other drug abuse Allergies: acetaminophen, hydrocodone, tramadol Patient seen and examined at the bedside. Patient currently reporting having shortness of breath and currently on 3 L nasal cannula. Continuously monitoring lab. Rest of ROS is negative Objective vital signs Vital Sign Date Time Temp Pulse Resp B/P (MAP) Pulse Ox O2 Delivery O2 Flow Rate FiO2 10/28/25 12:02 60 19 114/31 (58) 100 10/28/25 11:02 99.0 99.0 10/28/25 10:40 Nasal Cannula* 3 32 Total Intake and Output 10/27/25 10/27/25 10/28/25 15:00 23:00 07:00 Intake Total 2950 ml 71.25 ml 113.437 ml Balance 2950 ml 71.25 ml 113.437 ml medications Current Medications Medications Dose Ordered Sig/Payam Route Start Time Stop Time Status Last Admin Dose Admin Norepinephrine Bitartrate 250 ml @ 3.75 mls/hr Q24H IV 10/27/25 12:15 10/28/25 02:17 15 MLS/HR Sodium Chloride 10 ml Q8HR IV 10/27/25 14:00 10/28/25 12:30 10 ML Acetaminophen/ Hydrocodone Bitart 1 tab Q4HP PRN PO 10/27/25 13:30 Cancel Ondansetron HCl 4 mg Q4HP PRN IV 10/27/25 13:30 Docusate Sodium 100 mg BIDPRN PRN PO 10/27/25 13:30 Acetaminophen 650 mg Q6HP PRN PO 10/27/25 13:30 Cancel Nitroglycerin 0.4 mg Q5MINP PRN SL 10/27/25 13:30 Hold Morphine Sulfate 2 mg Q30M PRN IV 10/27/25 13:30 Vancomycin HCl 0 ml @ 0 mls/hr PER PHARMACY IV 10/27/25 15:00 Allopurinol 100 mg DAILY PO 10/28/25 10:00 10/28/25 09:55 100 MG Amiodarone HCl 200 mg BID PO 10/27/25 22:00 10/28/25 09:55 200 MG Apixaban 2.5 mg BID PO 10/27/25 22:00 10/28/25 09:55 2.5 MG Buspirone HCl 10 mg Q12HR PO 10/27/25 22:00 10/28/25 09:55 10 MG Carvedilol 3.125 mg BID PO 10/27/25 22:00 Montelukast Sodium 10 mg DAILY PO 10/28/25 10:00 10/28/25 09:55 10 MG Pantoprazole Sodium 40 mg QAM PO 10/28/25 07:00 10/28/25 06:22 40 MG Sildenafil Citrate 20 mg TID PO 10/27/25 22:00 Atorvastatin Calcium 40 mg HS PO 10/27/25 22:00 10/27/25 22:43 40 MG Guaifenesin/ Dextromethorphan 10 ml Q4HP PRN PO 10/28/25 05:00 10/28/25 10:00 10 ML Cefepime HCl 50 ml @ 12.5 mls/hr Q24H IV 10/28/25 11:30 Ipratropium [place] 0.5 mg Q4HWA NEB 10/28/25 14:00 Levalbuterol HCl 1.25 mg Q6HR NEB 10/28/25 18:00 UNV Levalbuterol HCl 1.25 mg Q4HR NEB 10/28/25 14:00 UNV Ipratropium [place] 0.5 mg Q4HR NEB 10/28/25 14:00 UNV Methylprednisolone Sodium Succinate 40 mg BID IV 10/28/25 12:45 Furosemide 40 mg DAILY IV 10/28/25 12:45 Examination Pt is lying on bed General Appearance: Alert, Oriented X3, Cooperative, moderate distress HEENT: Atraumatic, Mucous membranes moist/pink Respiratory: bilateral wheezing, diminished breath sounds Cardiovascular: Irregular rate, Normal S1, Normal S2, No murmurs Abdominal: Active bowel sounds, Soft, no distention, no tenderness Extremities: 1+ edema, Normal pulses, No tenderness Skin: No Significant rash, except past surgical scars Neuro: Normal speech, sensorimotor deficits none Psych/Mental Status: Mental status NL, Mood NL Nurse was there as soil sampler during examination laboratory and microbiology Laboratory Tests 10/28/25 04:42 Test 10/28/25 04:42 Range/Units Serum Glucose 117 H 74-106 mg/dL Microbiology Date/Time Source Procedure Growth Status 10/27/25 12:36 Urine - [place] Urine Culture - Preliminary Resulted 10/27/25 08:18 Blood Blood Culture - Preliminary Resulted Labs and/or images reviewed: Labs reviewed by me, Image(s) reviewed by me Problem List/Assessment/Plan Problem List/Assessment/Plan [employer] CVS # Acute on chronic diastolic heart failure # Paroxysmal Atrial fibrillation (CHADS VASC 5) secondary hypercoagulability state # Severe mitral stenosis # NSTEMI probable type II # History of aortic stenosis s/p TAVR # Non Affiliated arrhythmia s/p PPM # Cardiogenic versus septic shock # HLD # HTN # severe pulmonary hypertension Levophed drip Lipitor 40 mg Amiodarone 200 mg p.o. b.i.d. Apixaban Monitoring and telemetry Coreg as tolerated Lasix 40 mg Recent echo in June showing EF 65% with diastolic dysfunction, heavily calcified anterior and posterior mitral leaflets, moderately dilated LA, RV with RVSP 58 severe pulmonary hypertension RS: # Acute hypoxic respiratory failure on 3 L NC # Possible COPD exacerbation # Possible Gram-positive /negative bacterial PNA IV antibiotic cefepime and vancomycin Breathing treatments Pancultures IV Solu-Medrol 40 mg b.i.d. 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 likely from [facility]- continuously monitoring lab and avoid nephrotoxic agents MSK # Gout - continue allopurinol Heme-Onc # Normocytic anemia with iron deficiency- monitor lab Drips Levophed Lines: Peripheral but no central Protonix Eliquis Cardiac diet Goals of care discussed with the patient for more than 27 minutes: Full code status Critical care time spent excluding procedures 110 minutes Case discussed with the , patient and nurse Plan discussed with: Patient, Other (RN) My Orders My Orders Orders - MIGUEL DUNN RESIDENT Procedure Category Date Status Time Ipratropium Medneb PHA 10/28/25 In Process (Atrovent Medneb) 14:00 Levalbuterol Hcl PHA 10/28/25 Logged (Xopenex Medneb) 18:00 Complete Blood Count LAB 10/29/25 Verified 04:00 Comprehensive LAB 10/29/25 Verified Metabolic Panel 04:00 Magnesium LAB 10/29/25 Verified 04:00 Levalbuterol Hcl PHA 10/28/25 Logged (Xopenex Medneb) 14:00 Ipratropium Medneb PHA 10/28/25 Logged (Atrovent Medneb) 14:00 Methylprednisolone PHA 10/28/25 In Process Sod Succ (Solu Medrol 12:45 Furosemide Injection PHA 10/28/25 In Process (Lasix Injection) 12:45 Respiratory Culture OG 10/28/25 Logged W/ Gs 12:37 Visit Coding STANDARD RES Billing Provider: TOOTIE FLORIAN MD Date of Service if different f: Oct 28, 2025 Common Visit Codes: [id number] CARE 30-74 MIN (X2) MIGUEL DUNN RESIDENT Oct 28, 2025 12:53
[2025-10-28] MEDS ORDERED: IPRATROPIUM BROM 0.5 MG/2.5ML INH SOL NEB SCH (14:00)
[2025-10-28] MEDS: IPRATROPIUM BROM 0.5 MG/2.5ML INH SOL NEB SCH (14:45)
[2025-10-28] MEDS: LEVALBUTEROL HCL 1.25 MG/3 ML NEB NEB SCH (14:45)
[2025-10-28] MEDS ORDERED: LEVALBUTEROL HCL 1.25 MG/3 ML NEB NEB SCH (18:00)
[2025-10-29] VITALS (91 sets, daily range): BP systolic 93–136; BP diastolic 31–54; PULSE 59–71; RESP 10–31; TEMP 97.9–98.7; O2SAT 91–100
--- NOTE | 2025-10-29 01:16 | ECG ---
[facility] Test Date: 2025-10-27 Test Time: 07:58:38 Pat Name: KEN BENTLEY Department: ED Room: 0202T Gender: F Svp Of Digital: ER : 1940 Requested By: LEXII CARTER Order Number: [id number] Reading MD: Farooq Jarquin Measurements Intervals [place] Rate: 98 P: 28 AR: 189 QRS: -70 QRSD: 137 T: 74 QT: 383 QTc: 490 Interpretive Statements Atrial-sensed ventricular-paced complexes No further analysis attempted due to paced rhythm Baseline wander in lead(s) V2 Electronically Signed On 11-01-2025 15:19:43 PST by Farooq Jarquin Please click the below link to view image of tracing.
[2025-10-29] MEDS ORDERED: BUSP10TA90 PO (02:43)
[2025-10-29 05:38] LABS: Hematocrit 29.3 % (36.0-46.0); Hemoglobin 8.9 g/dL (12.2-16.2); Mean Corpuscular Hemoglobin 26.3 pg (28.0-32.0); Mean Corpuscular Volume 86.9 fL (80.0-100.0); Nucleated Red Blood Cells % 0.0 %
[2025-10-29 05:59] LABS: Alanine Aminotransferase 12 U/L (7-40); Albumin 3.5 g/dL (3.2-4.8); Alkaline Phosphatase 53 U/L (46-116); Anion Gap 13 (5-15); BUN/Creatinine Ratio 12.0 (10.0-20.0); Blood Urea Nitrogen 20 mg/dL (9-23); Carbon Dioxide 20 mmol/L (20-31); Chloride 106 mmol/L (98-107); Magnesium 2.2 mg/dL (1.6-2.6); Potassium 4.5 mmol/L (3.5-5.1); Sodium 139 mmol/L (136-145); Total Protein 5.8 g/dL (5.7-8.2)
[2025-10-29 06:00] LABS: Glucose 271 mg/dL (74-106)
[2025-10-29 06:01] LABS: Bilirubin, Total 0.3 mg/dL (0.2-1.0); Calcium 8.5 mg/dL (8.7-10.4)
[2025-10-29] MEDS: VANCOMYCIN 1GM/250ML KIT 250 ML IV ONE (10:03)
--- NOTE | 2025-10-29 13:37 | DVHPNRES ---
Progress Note Date Seen: Oct 29, 2025 Resident Creating Document: LORI LANG RESIDENT Medical Necessity Reason Pt with a Central, PICC or Fol: No Subjective Review of Systems Liliam Shook is an 85-year-old female with past medical history of CHF, CKF, COPD, GERD, hypertension, VT, S/P TAVR, atrial fibrillation, GOUT, hard of hearing, and pacemaker, who was brought to the hospital by EMS for shortness of breath. Patient resides at [facility] on the minimal assistance side. When the staff went to check on her they found her short of breath with increased work of breathing and called EMS. Son is at the bedside at time of assessment. Patient and Son state that since she had her TAVR in March 2024 she has been in and out of the hospital frequently. He states she gets transferred to a SNF for rehabilitation, and ends up wanting to leave and go home too soon because she misses her friends. PMH: AFib, CHF, HTN, HLD, COPD, gout, CKD, PSH: TAVR, varicose vein surgery, pacemaker Social history: Lives at jail. Denies smoking, alcohol and other drug abuse Allergies: acetaminophen, hydrocodone, tramadol 80/25: Patient seen and examined at the bedside. Patient currently reporting having shortness of breath and currently on 3 L nasal cannula. Continuously monitoring lab. Rest of ROS is negative 10/29/2025: Patient was seen and examined by me at the bedside. Labs and charts reviewed. Patient reports feeling much better than yesterday. Levophed has been stopped today since yesterday 6:00 p.m. and patient's blood pressure today is maintained at 161/41 mmHg. We will continue patient's ongoing treatment. She is still on 3 L oxygen via nasal cannula. Rest of the ROS is negative Objective vital signs Vital Sign Date Time Temp Pulse Resp B/P (MAP) Pulse Ox O2 Delivery O2 Flow Rate FiO2 10/29/25 12:31 62 10/29/25 12:30 15 96 10/29/25 10:00 Nasal Cannula* 3 32 10/29/25 07:50 98.7 98.7 Total Intake and Output 10/28/25 10/28/25 10/29/25 15:00 23:00 07:00 Intake Total 91.25 ml 607.50 ml 350 ml Output Total 900 ml 1725 ml 1050 ml Balance -808.75 ml -1117.50 ml -700 ml medications Current Medications Medications Dose Ordered Sig/Payam Route Start Time Stop Time Status Last Admin Dose Admin Norepinephrine Bitartrate 250 ml @ 3.75 mls/hr Q24H IV 10/27/25 12:15 10/28/25 02:17 15 MLS/HR Sodium Chloride 10 ml Q8HR IV 10/27/25 14:00 10/29/25 06:28 10 ML Acetaminophen/ Hydrocodone Bitart 1 tab Q4HP PRN PO 10/27/25 13:30 Cancel Ondansetron HCl 4 mg Q4HP PRN IV 10/27/25 13:30 Docusate Sodium 100 mg BIDPRN PRN PO 10/27/25 13:30 Acetaminophen 650 mg Q6HP PRN PO 10/27/25 13:30 Cancel Nitroglycerin 0.4 mg Q5MINP PRN SL 10/27/25 13:30 Hold Morphine Sulfate 2 mg Q30M PRN IV 10/27/25 13:30 Vancomycin HCl 0 ml @ 0 mls/hr PER PHARMACY IV 10/27/25 15:00 Allopurinol 100 mg DAILY PO 10/28/25 10:00 10/29/25 09:31 100 MG Amiodarone HCl 200 mg BID PO 10/27/25 22:00 10/29/25 09:31 200 MG Apixaban 2.5 mg BID PO 10/27/25 22:00 10/29/25 09:31 2.5 MG Buspirone HCl 10 mg Q12HR PO 10/27/25 22:00 10/29/25 09:27 10 MG Carvedilol 3.125 mg BID PO 10/27/25 22:00 10/29/25 11:21 3.125 MG Montelukast Sodium 10 mg DAILY PO 10/28/25 10:00 10/29/25 09:31 10 MG Pantoprazole Sodium 40 mg QAM PO 10/28/25 07:00 10/29/25 06:25 40 MG Sildenafil Citrate 20 mg TID PO 10/27/25 22:00 Atorvastatin Calcium 40 mg HS PO 10/27/25 22:00 10/28/25 21:34 40 MG Guaifenesin/ Dextromethorphan 10 ml Q4HP PRN PO 10/28/25 05:00 10/28/25 22:09 10 ML Cefepime HCl 50 ml @ 12.5 mls/hr Q24H IV 10/28/25 11:30 10/29/25 11:30 12.5 MLS/HR Ipratropium [place] 0.5 mg Q4HWA NEB 10/28/25 14:00 Cancel Levalbuterol HCl 1.25 mg Q6HR NEB 10/28/25 18:00 UNV Levalbuterol HCl 1.25 mg Q4HR NEB 10/28/25 14:00 10/29/25 10:28 1.25 MG Ipratropium [place] 0.5 mg Q4HR NEB 10/28/25 14:00 10/29/25 11:30 0.5 MG Methylprednisolone Sodium Succinate 40 mg BID IV 10/28/25 12:45 10/29/25 09:27 40 MG Furosemide 40 mg DAILY IV 10/28/25 12:45 10/29/25 10:27 40 MG Examination Pt is lying on bed General Appearance: Alert, Oriented X3, Cooperative, Not in acute distress HEENT: Atraumatic, Mucous membranes moist/pink Respiratory: Clear to auscultation, Decreased breath sounds in bilateral lung ghotra Cardiovascular: Regular rate, Normal S1, Normal S2, No murmurs Abdominal: Active bowel sounds, Soft, no distention, no tenderness Extremities: No edema, Normal pulses, tenderness on palpation of bilateral lower extremity [id number] Skin: No Significant rash, except past surgical scars Neuro: Normal speech, sensorimotor deficits none Psych/Mental Status: Mental status NL, Mood NL Nurse was there as mapping analyst during examination laboratory and microbiology Laboratory Tests 10/29/25 05:12 Test 10/29/25 05:12 Range/Units Serum Glucose 271 H 74-106 mg/dL Microbiology Date/Time Source Procedure Growth Status 10/28/25 11:15 Nose MRSA Screen - Final Complete 10/27/25 12:36 Urine - [place] Urine Culture - Final Complete 10/27/25 08:18 Blood Blood Culture - Final Escherichia coli - ESBL Complete Labs and/or images reviewed: Labs reviewed by me, Image(s) reviewed by me Problem List/Assessment/Plan Problem List/Assessment/Plan CVS # Acute on chronic diastolic heart failure # Paroxysmal Atrial fibrillation (CHADS VASC 5) secondary hypercoagulability state # Severe mitral stenosis # NSTEMI probable type II # History of aortic stenosis s/p TAVR # Non Affiliated arrhythmia s/p PPM # Cardiogenic versus septic shock # HLD # HTN # severe pulmonary hypertension Levophed drip Lipitor 40 mg Amiodarone 200 mg p.o. b.i.d. Apixaban Monitoring and telemetry Coreg as tolerated Lasix 40 mg Recent echo in June showing EF 65% with diastolic dysfunction, heavily calcified anterior and posterior mitral leaflets, moderately dilated LA, RV with RVSP 58 severe pulmonary hypertension RS: # Acute hypoxic respiratory failure on 3 L NC # Possible COPD exacerbation # Possible Gram-positive /negative bacterial PNA IV antibiotic cefepime and vancomycin Breathing treatments Pancultures IV Solu-Medrol 40 mg b.i.d. 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 likely from [facility]- continuously monitoring lab and avoid nephrotoxic agents MSK # Gout - continue allopurinol Heme-Onc # Normocytic anemia with iron deficiency- monitor lab Drips Levophed Lines: Peripheral but no central Protonix Eliquis Cardiac diet Goals of care discussed with the patient for more than 27 minutes: Full code status Critical care time spent excluding procedures 110 minutes Case discussed with the Dr. Chavarria, patient and nurse Plan discussed with: Patient, Other (rn) Visit Coding STANDARD RES Billing Provider: DENNIS CHAVARRIA MD Date of Service if different f: Oct 29, 2025 Common Visit Codes: [id number] INP/OBS CARE(HIGH) LORI LANG RESIDENT Oct 29, 2025 13:37 DENNIS CHAVARRIA MD Oct 29, 2025 23:30
[2025-10-30] VITALS (75 sets, daily range): BP systolic 36–126; BP diastolic 18–56; PULSE 60–68; RESP 11–29; TEMP 97.9–99.3; O2SAT 92–100
[2025-10-30 06:17] LABS: Hemoglobin 8.7 g/dL (12.2-16.2); Nucleated Red Blood Cells % 0.1 %
[2025-10-30 06:20] LABS: Hematocrit 28.6 % (36.0-46.0); Mean Corpuscular Hemoglobin 26.2 pg (28.0-32.0); Mean Corpuscular Volume 85.8 fL (80.0-100.0)
[2025-10-30 07:21] LABS: Chloride 106 mmol/L (98-107); Potassium 4.1 mmol/L (3.5-5.1); Sodium 140 mmol/L (136-145)
[2025-10-30 07:22] LABS: Anion Gap 12 (5-15); Carbon Dioxide 22 mmol/L (20-31)
[2025-10-30 07:25] LABS: Calcium 8.6 mg/dL (8.7-10.4)
[2025-10-30 07:27] LABS: BUN/Creatinine Ratio 18.5 (10.0-20.0)
[2025-10-30 07:34] LABS: Blood Urea Nitrogen 31 mg/dL (9-23); Glucose 156 mg/dL (74-106)
--- NOTE | 2025-10-30 14:58 | DVHPNRES ---
Progress Note Date Seen: Oct 30, 2025 Resident Creating Document: LORI LANG RESIDENT Medical Necessity Reason Pt with a Central, PICC or Fol: No Subjective Review of Systems Liliam Shook is an 85-year-old female with past medical history of CHF, CKF, COPD, GERD, hypertension, [place], S/P TAVR, atrial fibrillation, GOUT, hard of hearing, and pacemaker, who was brought to the hospital by EMS for shortness of breath. Patient resides at [facility] on the minimal assistance side. When the staff went to check on her they found her short of breath with increased work of breathing and called EMS. Son is at the bedside at time of assessment. Patient and Son state that since she had her TAVR in March 2024 she has been in and out of the hospital frequently. He states she gets transferred to a SNF for rehabilitation, and ends up wanting to leave and go home too soon because she misses her friends. PMH: AFib, CHF, HTN, HLD, COPD, gout, CKD, PSH: TAVR, varicose vein surgery, pacemaker Social history: Lives at long term. Denies smoking, alcohol and other drug abuse Allergies: acetaminophen, hydrocodone, tramadol Patient seen and examined at the bedside. Patient currently reporting having shortness of breath and currently on 3 L nasal cannula. Continuously monitoring lab. Rest of ROS is negative 10/29/2025: Patient was seen and examined by me at the bedside. Labs and charts reviewed. Patient reports feeling much better than yesterday. Levophed has been stopped today since yesterday 6:00 p.m. and patient's blood pressure today is maintained at 161/41 mmHg. We will continue patient's ongoing treatment. 10/30/2025: Patient was seen and examined by me at the bedside today. Labs and charts were reviewed. Patient reports feeling much better than yesterday and that her breathing has improved. Nurse informed that patient was able to ambulate well to the bathroom and with PT services yesterday down the toure. She was downgraded from ICU status to KALYAN status today. Urinary catheter was removed. All questions and queries asked by the patient regarding her health were answered. Patient requested her son Keyon to be informed as well which was done. Patient's blood pressure is maintained at 98/46 mmHg today which is an improvement from yesterday. His blood culture showed ESBL positive, cefepime was discontinued and ertapenem renal dose has been started as patient's GFR is 30. Objective vital signs Vital Sign Date Time Temp Pulse Resp B/P (MAP) Pulse Ox O2 Delivery O2 Flow Rate FiO2 10/30/25 14:32 95 Nasal Cannula* 1 24 10/30/25 14:32 60 16 10/30/25 14:15 10/30/25 12:45 98.5 98.5 Total Intake and Output 10/29/25 10/29/25 10/30/25 15:00 23:00 07:00 Intake Total 293.75 ml 506.25 ml 450 ml Output Total 975 ml 950 ml Balance 293.75 ml -468.75 ml -500 ml medications Current Medications Medications Dose Ordered Sig/Payam Route Start Time Stop Time Status Last Admin Dose Admin Norepinephrine Bitartrate 250 ml @ 3.75 mls/hr Q24H IV 10/27/25 12:15 10/28/25 02:17 15 MLS/HR Sodium Chloride 10 ml Q8HR IV 10/27/25 14:00 10/30/25 13:28 10 ML Acetaminophen/ Hydrocodone Bitart 1 tab Q4HP PRN PO 10/27/25 13:30 Cancel Ondansetron HCl 4 mg Q4HP PRN IV 10/27/25 13:30 Docusate Sodium 100 mg BIDPRN PRN PO 10/27/25 13:30 Acetaminophen 650 mg Q6HP PRN PO 10/27/25 13:30 Cancel Nitroglycerin 0.4 mg Q5MINP PRN SL 10/27/25 13:30 Hold Morphine Sulfate 2 mg Q30M PRN IV 10/27/25 13:30 Vancomycin HCl 0 ml @ 0 mls/hr PER PHARMACY IV 10/27/25 15:00 Allopurinol 100 mg DAILY PO 10/28/25 10:00 10/29/25 09:31 100 MG Amiodarone HCl 200 mg BID PO 10/27/25 22:00 10/30/25 09:25 200 MG Apixaban 2.5 mg BID PO 10/27/25 22:00 10/30/25 09:25 2.5 MG Buspirone HCl 10 mg Q12HR PO 10/27/25 22:00 10/30/25 09:56 10 MG Carvedilol 3.125 mg BID PO 10/27/25 22:00 10/30/25 09:26 3.125 MG Montelukast Sodium 10 mg DAILY PO 10/28/25 10:00 10/30/25 09:25 10 MG Pantoprazole Sodium 40 mg QAM PO 10/28/25 07:00 10/30/25 06:46 40 MG Sildenafil Citrate 20 mg TID PO 10/27/25 22:00 10/30/25 13:28 20 MG Atorvastatin Calcium 40 mg HS PO 10/27/25 22:00 10/29/25 21:41 40 MG Guaifenesin/ Dextromethorphan 10 ml Q4HP PRN PO 10/28/25 05:00 10/30/25 09:23 10 ML Cefepime HCl 50 ml @ 12.5 mls/hr Q24H IV 10/28/25 11:30 10/30/25 11:07 12.5 MLS/HR Ipratropium [place] 0.5 mg Q4HWA [facility] 10/28/25 14:00 Cancel Levalbuterol HCl 1.25 mg Q6HR NEB 10/28/25 18:00 UNV Levalbuterol HCl 1.25 mg Q4HR [facility] 10/28/25 14:00 10/30/25 14:31 1.25 MG Ipratropium [place] 0.5 mg Q4HR [facility] 10/28/25 14:00 10/30/25 14:31 0.5 MG Methylprednisolone Sodium Succinate 40 mg BID IV 10/28/25 12:45 10/30/25 09:24 40 MG Furosemide 40 mg DAILY IV 10/28/25 12:45 10/30/25 09:24 40 MG Ertapenem 0.5 gm/ Sodium Chloride 50 ml @ 100 mls/hr DAILY IV 10/31/25 10:00 UNV Examination Pt is lying on bed General Appearance: Alert, Oriented X3, Cooperative, Not in acute distress HEENT: Atraumatic, Mucous membranes moist/pink Respiratory: Clear to auscultation, Decreased breath sounds in bilateral lung ghotra Cardiovascular: Regular rate, Normal S1, Normal S2, No murmurs Abdominal: Active bowel sounds, Soft, no distention, no tenderness Extremities: No edema, Normal pulses, tenderness on palpation of bilateral lower extremity [id number] Skin: No Significant rash, except past surgical scars Neuro: Normal speech, sensorimotor deficits none Psych/Mental Status: Mental status NL, Mood NL Nurse was there as cruise director during examination laboratory and microbiology Laboratory Tests 10/30/25 05:52 Test 10/30/25 05:52 Range/Units Serum Glucose 156 H 74-106 mg/dL Microbiology Date/Time Source Procedure Growth Status 10/28/25 11:15 Nose MRSA Screen - Final Complete 10/27/25 12:36 Urine - [place] Urine Culture - Final Complete 10/27/25 08:18 Blood Blood Culture - Final Escherichia coli - ESBL Complete Problem List/Assessment/Plan Problem List/Assessment/Plan CVS # Acute on chronic diastolic heart failure # Paroxysmal Atrial fibrillation (CHADS VASC 5) secondary hypercoagulability state # Severe mitral stenosis # NSTEMI probable type II # History of aortic stenosis s/p TAVR # Non Affiliated arrhythmia s/p PPM # Cardiogenic versus septic shock # HLD # HTN # severe pulmonary hypertension -tropes 108, 106, 101 -Levophed drip; Discontinued on 10/29/2025 -KALYAN status from 10/30/2025 -Lipitor 40 mg -Amiodarone 200 mg p.o. b.i.d. -Apixaban -Monitoring and telemetry -Coreg as tolerated -Lasix 40 mg -Recent echo in June showing EF 65% with diastolic dysfunction, heavily calcified anterior and posterior mitral leaflets, moderately dilated LA, RV with RVSP 58 severe pulmonary hypertension RS: # Acute hypoxic respiratory failure on 3 L NC # Possible COPD exacerbation # Possible Gram-positive /negative bacterial PNA -IV antibiotic cefepime and vancomycin , cefepime discontinued and ertapenem 0.5 mg renal dose given as patient's GFR is 30 -Breathing treatments -blood culture positive for ESBL and E coli -Urine culture shows more than 100,000 mixed simone -DC urinary catheter on 10/30/2025 -IV Solu-Medrol 40 mg b.i.d. -Robitussin DM for cough GI # GERD -on Protonix -Diet-cardiac / Endo / Metabolic # DESTINEE on CKD IV likely from N- continuously monitoring lab and avoid nephrotoxic agents MSK # Gout - continue allopurinol Heme-Onc # Normocytic anemia with iron deficiency- monitor lab Lines: Peripheral but no central Protonix Eliquis Cardiac diet Goals of care discussed with the patient for more than 27 minutes: Full code status Critical care time spent excluding procedures 110 minutes Case discussed with the Dr. Chavarria, patient and nurse Plan discussed with: Patient, Son, Other (rn) My Orders My Orders Orders - LORI LANG Procedure Category Date Status Time Transfer Orders XFER 10/30/25 Transmitted 10:10 D/C [employer] URIOSTEGUI 10/30/25 In Process 10:11 Ertapenem Sod Inj PHA 10/31/25 Logged ([employer]) 10:00 Ertapenem Sod Inj PHA 10/30/25 Logged ([employer]) 14:45 Visit Coding STANDARD RES Billing Provider: DENNIS CHAVARRIA MD Date of Service if different f: Oct 30, 2025 Common Visit Codes: [id number] INP/OBS CARE(HIGH) LORI LANG RESIDENT Oct 30, 2025 14:57 DENNIS CHAVARIRA MD Oct 30, 2025 22:44
[2025-10-30] MEDS: VANCOMYCIN 500mg/100mL 100 ML IV ONE (15:31)
[2025-10-30] MEDS: ERTAPENEM SOD INJ 0.5 GM in SODIUM CHL 0.9% 50 ML IV ONE (17:44)
[2025-10-31] VITALS (34 sets, daily range): BP systolic 89–134; BP diastolic 25–66; PULSE 60–78; RESP 10–30; TEMP 97.8–98.6; O2SAT 90–99
[2025-10-31 06:08] LABS: Hemoglobin 9.3 g/dL (12.2-16.2)
[2025-10-31 06:09] LABS: Hematocrit 29.5 % (36.0-46.0); Mean Corpuscular Hemoglobin 27.0 pg (28.0-32.0); Mean Corpuscular Volume 85.8 fL (80.0-100.0); Nucleated Red Blood Cells % 0.3 %
[2025-10-31 06:46] LABS: Chloride 105 mmol/L (98-107); Potassium 4.3 mmol/L (3.5-5.1); Sodium 138 mmol/L (136-145)
[2025-10-31 06:47] LABS: Anion Gap 10 (5-15); Carbon Dioxide 23 mmol/L (20-31)
[2025-10-31 06:48] LABS: Calcium 8.6 mg/dL (8.7-10.4)
[2025-10-31 06:52] LABS: BUN/Creatinine Ratio 21.7 (10.0-20.0)
[2025-10-31 06:55] LABS: Blood Urea Nitrogen 39 mg/dL (9-23); Glucose 172 mg/dL (74-106)
--- NOTE | 2025-10-31 09:34 | MEDREC ---
[facility] Intervention Section I [facility] Intervention: Deescalate AB based on CS (PLEASE CONSIDER D/C VANCOMYCIN - NARES SCREENING FOR MRSA HAS A HIGH SPECIFICITY AND NEGATIVE PREDICTIVE VALUE FOR RULING OUT MRSA PNEUMONIA) ROB JEFFERSON PHARMACIST Oct 31, 2025 09:34
[2025-10-31] MEDS: ERTAPENEM SOD INJ 0.5 GM in SODIUM CHL 0.9% 50 ML IV SCH (10:26)
--- NOTE | 2025-10-31 13:57 | DVHPNRES ---
Progress Note Date Seen: Oct 31, 2025 Resident Creating Document: JESSICA ROUSE RESIDENT Medical Necessity Reason Pt with a Central, PICC or Fol: No Subjective Review of Systems Liliam Shook is an 85-year-old female with past medical history of CHF, CKD not on dialysis, COPD, GERD, hypertension, [place], S/P TAVR, atrial fibrillation, GOUT, hard of hearing, and pacemaker, who was brought to the hospital by EMS for shortness of breath. Patient resides at [facility] on the minimal assistance side. When the staff went to check on her they found her short of breath with increased work of breathing and called EMS. Son is at the bedside at time of assessment. Patient and Son state that since she had her TAVR in March 2024 she has been in and out of the hospital frequently. He states she gets transferred to a SNF for rehabilitation, and ends up wanting to leave and go home too soon because she misses her friends. PMH: AFib, CHF, HTN, HLD, COPD, gout, CKD, PSH: TAVR, varicose vein surgery, pacemaker Social history: Lives at detention. Denies smoking, alcohol and other drug abuse Allergies: acetaminophen, hydrocodone, tramadol Patient was seen and examined at the bedside. Overnight events were reviewed. Patient was breathing on nasal cannula oxygen. She reports having dry cough and mild chest pain, which she attributes to gastric reflux. The RN was present at bedside, she was concerned about the Coreg goes patient's blood pressure was 95/27. Coreg was held for this morning. No other new complaints reported. Objective vital signs Vital Sign Date Time Temp Pulse Resp B/P (MAP) Pulse Ox O2 Delivery O2 Flow Rate FiO2 10/31/25 13:00 62 14 92 10/31/25 09:42 Room Air* 0 21 10/31/25 08:00 98.6 98.6 Total Intake and Output 10/30/25 10/30/25 10/31/25 15:00 23:00 07:00 Intake Total 50.0 ml 510 ml 400 ml Output Total 800 ml Balance 50.0 ml -290 ml 400 ml medications Current Medications Medications Dose Ordered Sig/Payam Route Start Time Stop Time Status Last Admin Dose Admin Norepinephrine Bitartrate 250 ml @ 3.75 mls/hr Q24H IV 10/27/25 12:15 10/28/25 02:17 15 MLS/HR Sodium Chloride 10 ml Q8HR IV 10/27/25 14:00 10/31/25 13:40 10 ML Acetaminophen/ Hydrocodone Bitart 1 tab Q4HP PRN PO 10/27/25 13:30 Cancel Ondansetron HCl 4 mg Q4HP PRN IV 10/27/25 13:30 Docusate Sodium 100 mg BIDPRN PRN PO 10/27/25 13:30 Acetaminophen 650 mg Q6HP PRN PO 10/27/25 13:30 Cancel Nitroglycerin 0.4 mg Q5MINP PRN SL 10/27/25 13:30 Hold Morphine Sulfate 2 mg Q30M PRN IV 10/27/25 13:30 Vancomycin HCl 0 ml @ 0 mls/hr PER PHARMACY IV 10/27/25 15:00 Allopurinol 100 mg DAILY PO 10/28/25 10:00 10/31/25 10:24 100 MG Amiodarone HCl 200 mg BID PO 10/27/25 22:00 10/31/25 10:25 200 MG Apixaban 2.5 mg BID PO 10/27/25 22:00 10/31/25 10:24 2.5 MG Buspirone HCl 10 mg Q12HR PO 10/27/25 22:00 10/31/25 10:24 10 MG Carvedilol 3.125 mg BID PO 10/27/25 22:00 10/30/25 22:09 3.125 MG Montelukast Sodium 10 mg DAILY PO 10/28/25 10:00 10/31/25 10:24 10 MG Pantoprazole Sodium 40 mg QAM PO 10/28/25 07:00 10/31/25 06:31 40 MG Sildenafil Citrate 20 mg TID PO 10/27/25 22:00 10/31/25 06:16 20 MG Atorvastatin Calcium 40 mg HS PO 10/27/25 22:00 10/30/25 21:39 40 MG Guaifenesin/ Dextromethorphan 10 ml Q4HP PRN PO 10/28/25 05:00 10/30/25 09:23 10 ML Ipratropium [employer] 0.5 mg Q4HWA NEB 10/28/25 14:00 Cancel Levalbuterol HCl 1.25 mg Q6HR NEB 10/28/25 18:00 UNV Levalbuterol HCl 1.25 mg Q4HR NEB 10/28/25 14:00 10/31/25 09:41 1.25 MG Ipratropium [employer] 0.5 mg Q4HR NEB 10/28/25 14:00 10/31/25 09:42 0.5 MG Methylprednisolone Sodium Succinate 40 mg BID IV 10/28/25 12:45 10/31/25 10:24 40 MG Furosemide 40 mg DAILY IV 10/28/25 12:45 10/31/25 10:26 40 MG Ertapenem 0.5 gm/ Sodium Chloride 50 ml @ 100 mls/hr DAILY IV 10/31/25 10:00 10/31/25 10:26 100 MLS/HR Examination Examination Pt is lying on bed General Appearance: Alert, Oriented X3, Cooperative, Not in acute distress HEENT: Atraumatic, Mucous membranes moist/pink Respiratory: Clear to auscultation, Decreased breath sounds in bilateral lung ghotra Cardiovascular: Regular rate, Normal S1, Normal S2, No murmurs Abdominal: Active bowel sounds, Soft, no distention, no tenderness Extremities: No edema, Normal pulses, tenderness on palpation of bilateral lower extremity [id number] Skin: No Significant rash, except past surgical scars Neuro: Normal speech, sensorimotor deficits none Psych/Mental Status: Mental status NL, Mood NL Nurse was there as machine guide base winder during examination laboratory and microbiology Laboratory Tests 10/31/25 05:20 Test 10/31/25 05:20 Range/Units Serum Glucose 172 H 74-106 mg/dL Microbiology Date/Time Source Procedure Growth Status 10/28/25 11:15 Nose MRSA Screen - Final Complete 10/27/25 12:36 Urine - [place] Urine Culture - Final Complete 10/27/25 08:18 Blood Blood Culture - Final Escherichia coli - ESBL Complete Labs and/or images reviewed: Labs reviewed by me, Image(s) reviewed by me Problem List/Assessment/Plan Problem List/Assessment/Plan CVS # Acute on chronic diastolic heart failure # Paroxysmal Atrial fibrillation (CHADS VASC 5) secondary hypercoagulability state # Severe mitral stenosis # NSTEMI probable type II # History of aortic stenosis s/p TAVR # Non Affiliated arrhythmia s/p PPM # Cardiogenic versus septic shock # HLD # HTN # severe pulmonary hypertension -tropes 108, 106, 101 -Levophed drip; Discontinued on 10/29/2025 -KALYAN status from 10/30/2025 -Lipitor 40 mg -Amiodarone 200 mg p.o. b.i.d. -Apixaban -Monitoring and telemetry -Coreg as tolerated -Lasix 40 mg -Recent echo in June showing EF 65% with diastolic dysfunction, heavily calcified anterior and posterior mitral leaflets, moderately dilated LA, RV with RVSP 58 severe pulmonary hypertension RS: # Acute hypoxic respiratory failure on 3 L NC # Possible COPD exacerbation # Possible Gram-positive /negative bacterial PNA -IV antibiotic cefepime and vancomycin , cefepime discontinued and ertapenem 0.5 mg renal dose given as patient's GFR is 30 -Breathing treatments -blood culture positive for ESBL and E coli -Urine culture shows more than 100,000 mixed simone -DC urinary catheter on 10/30/2025 -IV Solu-Medrol 40 mg b.i.d. -Robitussin DM for cough GI # GERD -on Protonix -Diet-cardiac / Endo / Metabolic # DESTINEE on CKD IV likely from [facility]- continuously monitoring lab and avoid nephrotoxic agents MSK # Gout - continue allopurinol Heme-Onc # Normocytic anemia with iron deficiency- monitor lab Lines: Peripheral but no central Protonix Eliquis Cardiac diet Goals of care discussed with the patient for more than 27 minutes: Full code status Critical care time spent excluding procedures 110 minutes Case discussed with the Dr. Chavarria, patient and nurse Plan discussed with: Patient, Son, Other (rn) Plan discussed with: Patient, Other Visit Coding STANDARD RES Billing Provider: DENNIS CHAVARRIA MD Date of Service if different f: Oct 31, 2025 Common Visit Codes: [id number] INP/OBS CARE(HIGH) JESSICA ROUSE RESIDENT Oct 31, 2025 13:57 DENNIS CHAVARRIA MD Oct 31, 2025 23:25
[2025-11-01] VITALS (28 sets, daily range): BP systolic 112–177; BP diastolic 35–80; PULSE 60–82; RESP 15–24; TEMP 96.4–98.8; O2SAT 91–100
[2025-11-01 06:24] LABS: Hemoglobin 10.0 g/dL (12.2-16.2); Mean Corpuscular Hemoglobin 26.3 pg (28.0-32.0); Nucleated Red Blood Cells % 0.1 %
[2025-11-01 06:26] LABS: Hematocrit 31.7 % (36.0-46.0); Mean Corpuscular Volume 82.9 fL (80.0-100.0)
[2025-11-01 06:48] LABS: Alanine Aminotransferase 14 U/L (7-40); Albumin 3.5 g/dL (3.2-4.8); Alkaline Phosphatase 47 U/L (46-116); Anion Gap 10 (5-15); BUN/Creatinine Ratio 28.2 (10.0-20.0); Calcium 8.7 mg/dL (8.7-10.4); Carbon Dioxide 27 mmol/L (20-31); Chloride 103 mmol/L (98-107); Potassium 5.0 mmol/L (3.5-5.1); Sodium 140 mmol/L (136-145)
[2025-11-01 06:50] LABS: Bilirubin, Total 0.3 mg/dL (0.2-1.0); Blood Urea Nitrogen 62 mg/dL (9-23); Glucose 166 mg/dL (74-106); Total Protein 5.5 g/dL (5.7-8.2)
[2025-11-01] MEDS: DOCUSATE SOD 100 MG CAP PO PRN (10:03)
--- NOTE | 2025-11-01 13:03 | DVHPNRES ---
Progress Note Date Seen: Nov 01, 2025 Resident Creating Document: ALVIN LOPES RESIDENT Medical Necessity Reason Pt with a Central, PICC or Fol: No Objective vital signs Vital Sign Date Time Temp Pulse Resp B/P (MAP) Pulse Ox O2 Delivery O2 Flow Rate FiO2 11/01/25 12:00 60 11/01/25 11:00 17 133/59 (83) 94 11/01/25 10:00 Room Air* 0 21 11/01/25 08:00 98.4 98.4 Total Intake and Output 10/31/25 10/31/25 11/01/25 15:00 23:00 07:00 Intake Total 150 ml 500 ml 120 ml Balance 150 ml 500 ml 120 ml medications Current Medications Medications Dose Ordered Sig/Payam Route Start Time Stop Time Status Last Admin Dose Admin Norepinephrine Bitartrate 250 ml @ 3.75 mls/hr Q24H IV 10/27/25 12:15 10/28/25 02:17 15 MLS/HR Sodium Chloride 10 ml Q8HR IV 10/27/25 14:00 11/01/25 05:50 10 ML Acetaminophen/ Hydrocodone Bitart 1 tab Q4HP PRN PO 10/27/25 13:30 Cancel Ondansetron HCl 4 mg Q4HP PRN IV 10/27/25 13:30 Docusate Sodium 100 mg BIDPRN PRN PO 10/27/25 13:30 11/01/25 10:03 100 MG Acetaminophen 650 mg Q6HP PRN PO 10/27/25 13:30 Cancel Nitroglycerin 0.4 mg Q5MINP PRN SL 10/27/25 13:30 Hold Morphine Sulfate 2 mg Q30M PRN IV 10/27/25 13:30 Vancomycin HCl 0 ml @ 0 mls/hr PER PHARMACY IV 10/27/25 15:00 Allopurinol 100 mg DAILY PO 10/28/25 10:00 11/01/25 09:05 100 MG Amiodarone HCl 200 mg BID PO 10/27/25 22:00 11/01/25 09:04 200 MG Apixaban 2.5 mg BID PO 10/27/25 22:00 11/01/25 09:05 2.5 MG Buspirone HCl 10 mg Q12HR PO 10/27/25 22:00 11/01/25 09:25 10 MG Carvedilol 3.125 mg BID PO 10/27/25 22:00 11/01/25 09:05 3.125 MG Montelukast Sodium 10 mg DAILY PO 10/28/25 10:00 11/01/25 09:05 10 MG Pantoprazole Sodium 40 mg QAM PO 10/28/25 07:00 11/01/25 05:50 40 MG Sildenafil Citrate 20 mg TID PO 10/27/25 22:00 11/01/25 05:50 20 MG Atorvastatin Calcium 40 mg HS PO 10/27/25 22:00 10/31/25 20:56 40 MG Guaifenesin/ Dextromethorphan 10 ml Q4HP PRN PO 10/28/25 05:00 10/30/25 09:23 10 ML Ipratropium [place] 0.5 mg Q4HWA NEB 10/28/25 14:00 Cancel Levalbuterol HCl 1.25 mg Q6HR NEB 10/28/25 18:00 UNV Levalbuterol HCl 1.25 mg Q4HR NEB 10/28/25 14:00 11/01/25 10:00 1.25 MG Ipratropium [place] 0.5 mg Q4HR NEB 10/28/25 14:00 11/01/25 10:00 0.5 MG Methylprednisolone Sodium Succinate 40 mg BID IV 10/28/25 12:45 11/01/25 09:04 40 MG Furosemide 40 mg DAILY IV 10/28/25 12:45 11/01/25 09:04 40 MG Ertapenem 0.5 gm/ Sodium Chloride 50 ml @ 100 mls/hr DAILY IV 10/31/25 10:00 11/01/25 09:17 100 MLS/HR Iron Sucrose 110 ml @ 110 mls/hr DAILY@1200 IV 11/02/25 12:00 11/06/25 11:59 UNV Examination General Appearance: Alert, Oriented X3, Cooperative, Not in acute distress HEENT: Atraumatic, Mucous membranes moist/pink Respiratory: Clear to auscultation, Decreased breath sounds in bilateral lung ghotra Cardiovascular: Regular rate, Normal S1, Normal S2, No murmurs Abdominal: Active bowel sounds, Soft, no distention, no tenderness Extremities: No edema, Normal pulses, tenderness on palpation of bilateral lower extremity [id number] Skin: No Significant rash, except past surgical scars Neuro: Normal speech, sensorimotor deficits none Psych/Mental Status: Mental status NL, Mood NL Nurse was there as transportation maintenance supervisor during examination laboratory and microbiology Laboratory Tests 11/01/25 05:44 Test 11/01/25 05:44 Range/Units Serum Glucose 166 H 74-106 mg/dL Microbiology Date/Time Source Procedure Growth Status 10/28/25 11:15 Nose MRSA Screen - Final Complete 10/27/25 12:36 Urine - [place] Urine Culture - Final Complete 10/27/25 08:18 Blood Blood Culture - Final Escherichia coli - ESBL Complete Labs and/or images reviewed: Labs reviewed by me, Image(s) reviewed by me Problem List/Assessment/Plan Problem List/Assessment/Plan Liliam Shook, an 85-year-old female with extensive cardiac and pulmonary history including CHF, CKD, COPD, AFib, prior [place], pacemaker, and S/P TAVR, residing in assisted living, presented via EMS with shortness of breath and increased work of breathing, reporting dry cough and mild chest discomfort attributed to reflux. Assessment # Possible Gram-positive /negative bacterial Community acquired pneumonia. # Sepsis secondary to pneumonia # ESBL bacteremia on Invanz # Acute on chronic diastolic heart failure # Paroxysmal Atrial fibrillation (CHADS VASC 5) # secondary hypercoagulability state on Eliquis. 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 Plan: #Downgrade to Tele, off of levophed. #Repeat blood culture, f/u of 10/27 ESBL blood, ECHO day 02/22 of Ertepenam to continue. #PICC line for IV abx. #PT for DME and deconditioning #Day 5 of Vancomycin, MRSA -ve, DC vancomycin. #SW consult once we know patients discharge disposition. #Hold Lasix as BUN increasing. gentle oral hydration. #IV iron as ferritin 15, poor oral intake. #continue rest of the management Goals of care discussed with the patient for more than 27 minutes Case discussed with the Dr. Chavarria. Plan discussed with: Patient My Orders My Orders Orders - ALVIN LOPES RESIDENT Procedure Category Date Status Time Blood Culture OG 11/01/25 In Process 08:25 Transfer Orders XFER 11/01/25 Transmitted 10:53 * Picc Line Consult CONS 11/01/25 Transmitted 11:00 Iron Sucrose Complex PHA 11/02/25 Logged (Venofer) 12:00 Echo 2d Mode Cardiac US 11/01/25 Logged DOP 12:46 Pt Request For Service PT 11/01/25 Logged 12:55 Dietary Evaluation Review Comments: Diet Order CCHO-60 Cardiac Renal diet Protein restriction: 50g/day Logic Protein restriction Helps slow CKD progression Reduces nitrogenous waste and uremic symptoms Increase carbohydrate intake Provides adequate energy Prevents muscle catabolism and supports glycemic control Expected Outcomes/Goals: to lessen Umria syndrome Date of Service: Nov 01, 2025 Billing Provider: DENNIS CHAVARRIA MD Common Visit Codes: [id number] INP/OBS CARE(HIGH) ALVIN LOPES RESIDENT Nov 01, 2025 13:03 DENNIS CHAVARRIA MD Nov 01, 2025 23:58
[2025-11-01 15:35] LABS: INR 1.19 (0.9-1.15); Partial Thromboplastin Time 28.6 SEC (24.5-34.5); Prothrombin Time 12.4 sec (9.3-11.8)
--- NOTE | 2025-11-01 19:26 | DVHSR ---
APPROVED REPORT EXAM: LIMITED Two-dimensional and M-mode echocardiogram with Doppler and color Doppler. Blood Pressure: 133/59 mmHg INDICATION Bacterimia Limited repeat to rule out infective endocarditis Surgery/Intervention Valve Replacement: Type: TAVR Pacemaker: RISK FACTORS Obesity: Height: 5'4", Weight: 218 Mitral Valve Mitral Mitral Stenosis E wave m/s MV Mean GR. 8mmHg A wave m/s MV Peak GR. 18mmHg E/A ratio 0.0 2D MVA cm2 Aortic Valve Aortic Valve Aortic Stenosis LVOT Diameter 1.8 (1.8-2.4cm) Doppler MAGALY cm2 Other Information Quality : Technically Limited Rhythm : Technically limited study due to limited repeat to rule out endocarditis. Conclusion Left ventricle: Systolic function is normal. Visual estimation of ejection fraction is 55-60%. Mitral valve: There is mitral annular calcification. There is [id number] mitral regurgitation. Aortic valve: The aortic valve is sclerotic. Tricuspid valve: No apparent vegetation. If high index of suspicion for infective endocarditis recommend TOMMY .
[2025-11-02] VITALS (18 sets, daily range): BP systolic 113–142; BP diastolic 60–78; PULSE 60–75; RESP 14–19; TEMP 96.8–98.8; O2SAT 93–100
[2025-11-02 09:43] LABS: Hematocrit 31.9 % (36.0-46.0); Hemoglobin 10.1 g/dL (12.2-16.2); Mean Corpuscular Hemoglobin 25.7 pg (28.0-32.0); Mean Corpuscular Volume 81.1 fL (80.0-100.0); Nucleated Red Blood Cells % 0.0 %
[2025-11-02 09:58] LABS: Anion Gap 13 (5-15); Carbon Dioxide 26 mmol/L (20-31); Chloride 99 mmol/L (98-107); Sodium 138 mmol/L (136-145)
[2025-11-02 09:59] LABS: Calcium 9.1 mg/dL (8.7-10.4)
[2025-11-02 10:04] LABS: BUN/Creatinine Ratio 30.9 (10.0-20.0)
[2025-11-02 10:05] LABS: Blood Urea Nitrogen 72 mg/dL (9-23); Glucose 153 mg/dL (74-106); Potassium 5.1 mmol/L (3.5-5.1)
[2025-11-02] MEDS: IRON SUCROSE COMPLEX 110 ML IV SCH (15:21)
--- NOTE | 2025-11-02 17:29 | DVHPNRES ---
Progress Note Date Seen: Nov 02, 2025 Resident Creating Document: LORI LANG RESIDENT Medical Necessity Reason Pt with a Central, PICC or Fol: No Subjective Review of Systems ROS 11/02/2025: Patient was seen and examined by me at the bedside. Charts and labs reviewed. Patient has no new complaints today. She reports feeling better. Objective vital signs Vital Sign Date Time Temp Pulse Resp B/P (MAP) Pulse Ox O2 Delivery O2 Flow Rate FiO2 11/02/25 16:32 98.0 63 18 142/61 (88) 94 98.0 11/02/25 10:32 Room Air 0.0 11/02/25 10:32 21 Total Intake and Output 11/01/25 11/01/25 11/02/25 15:00 23:00 07:00 Intake Total 800 ml 450 ml 350 ml Balance 800 ml 450 ml 350 ml medications Current Medications Medications Dose Ordered Sig/Payam Route Start Time Stop Time Status Last Admin Dose Admin Sodium Chloride 10 ml Q8HR IV 10/27/25 14:00 11/02/25 15:21 10 ML Acetaminophen/ Hydrocodone Bitart 1 tab Q4HP PRN PO 10/27/25 13:30 Cancel Ondansetron HCl 4 mg Q4HP PRN IV 10/27/25 13:30 Docusate Sodium 100 mg BIDPRN PRN PO 10/27/25 13:30 11/01/25 10:03 100 MG Acetaminophen 650 mg Q6HP PRN PO 10/27/25 13:30 Cancel Nitroglycerin 0.4 mg Q5MINP PRN SL 10/27/25 13:30 Hold Morphine Sulfate 2 mg Q30M PRN IV 10/27/25 13:30 Allopurinol 100 mg DAILY PO 10/28/25 10:00 11/02/25 10:27 100 MG Amiodarone HCl 200 mg BID PO 10/27/25 22:00 11/02/25 10:28 200 MG Apixaban 2.5 mg BID PO 10/27/25 22:00 11/02/25 10:28 2.5 MG Buspirone HCl 10 mg Q12HR PO 10/27/25 22:00 11/02/25 10:27 10 MG Carvedilol 3.125 mg BID PO 10/27/25 22:00 11/02/25 10:29 3.125 MG Montelukast Sodium 10 mg DAILY PO 10/28/25 10:00 11/02/25 10:28 10 MG Pantoprazole Sodium 40 mg QAM PO 10/28/25 07:00 11/02/25 06:00 40 MG Sildenafil Citrate 20 mg TID PO 10/27/25 22:00 11/02/25 15:21 20 MG Atorvastatin Calcium 40 mg HS PO 10/27/25 22:00 11/01/25 22:18 40 MG Guaifenesin/ Dextromethorphan 10 ml Q4HP PRN PO 10/28/25 05:00 11/02/25 10:26 10 ML Ipratropium [place] 0.5 mg Q4HWA NEB 10/28/25 14:00 Cancel Levalbuterol HCl 1.25 mg Q6HR NEB 10/28/25 18:00 UNV Levalbuterol HCl 1.25 mg Q4HR NEB 10/28/25 14:00 11/02/25 10:32 1.25 MG Ipratropium [place] 0.5 mg Q4HR NEB 10/28/25 14:00 11/02/25 10:32 0.5 MG Methylprednisolone Sodium Succinate 40 mg BID IV 10/28/25 12:45 11/02/25 10:27 40 MG Ertapenem 0.5 gm/ Sodium Chloride 50 ml @ 100 mls/hr DAILY IV 10/31/25 10:00 11/02/25 16:32 100 MLS/HR Iron Sucrose 110 ml @ 110 mls/hr DAILY@1200 IV 11/02/25 12:00 11/06/25 11:59 11/02/25 15:21 110 MLS/HR Examination Pt is lying on bed General Appearance: Alert, Oriented X3, Cooperative, Not in acute distress HEENT: Atraumatic, Mucous membranes moist/pink Respiratory: Clear to auscultation, Normal air movement, No added sounds Cardiovascular: Regular rate, Normal S1, Normal S2, No murmurs Abdominal: Active bowel sounds, Soft, no distention, no tenderness Extremities: No edema, Normal pulses, trace pitting edema bilateral limbs up to knee Skin: No Significant rash, except past surgical scars Neuro: Normal speech, sensorimotor deficits none Psych/Mental Status: Mental status NL, Mood NL Nurse was there as overhauler bus truck during examination laboratory and microbiology Laboratory Tests 11/02/25 09:25 Test 11/02/25 09:25 Range/Units Serum Glucose 153 H 74-106 mg/dL Microbiology Date/Time Source Procedure Growth Status 11/01/25 09:02 Blood Blood Culture - Preliminary NO GROWTH AFTER 24 HOURS OF INCUBATION. Resulted 10/28/25 11:15 Nose MRSA Screen - Final Complete 10/27/25 12:36 Urine - [place] Urine Culture - Final Complete Labs and/or images reviewed: Labs reviewed by me, Image(s) reviewed by me Problem List/Assessment/Plan Problem List/Assessment/Plan Liliam Shook, an 85-year-old female with extensive cardiac and pulmonary history including CHF, CKD, COPD, AFib, prior [place], pacemaker, and S/P TAVR, residing in assisted living, presented via EMS with shortness of breath and increased work of breathing, reporting dry cough and mild chest discomfort attributed to reflux. Assessment # Possible Gram-positive /negative bacterial Community acquired pneumonia. # Sepsis secondary to pneumonia # ESBL bacteremia on Invanz # Acute on chronic diastolic heart failure # Paroxysmal Atrial fibrillation (CHADS VASC 5) # secondary hypercoagulability state on Eliquis. 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 Plan: #Downgraded to med-surge, off of levophed. #Repeat blood culture, preliminary negative, f/u of 10/27 ESBL blood, ECHO day 4 of Ertepenam to continue. #midline line for IV abx. #PT for DME and deconditioning #Day 6 of Vancomycin, MRSA -ve, DC vancomycin On 11/02/2025. #SW consult once we know patients discharge disposition. #Hold Lasix as BUN increasing. gentle oral hydration. #IV iron as ferritin 15, poor oral intake. #continue rest of the management Goals of care discussed with the patient for more than 27 minutes Case discussed with the Dr. Chavarria. Plan discussed with: Patient, Other My Orders My Orders Orders - LORI LANG RESIDENT Procedure Category Date Status Time Schedule For Dc MOODY 11/02/25 In Process Clinic F/U 11:50 Dietary Evaluation Review Comments: Diet Order CCHO-60 Cardiac Renal diet Protein restriction: 50g/day Logic Protein restriction Helps slow CKD progression Reduces nitrogenous waste and uremic symptoms Increase carbohydrate intake Provides adequate energy Prevents muscle catabolism and supports glycemic control Expected Outcomes/Goals: to lessen Umria syndrome Visit Coding STANDARD RES Billing Provider: DENNIS CHAVARRIA MD Date of Service if different f: Nov 02, 2025 Common Visit Codes: [id number] INP/OBS CARE(HIGH) LORI LANG RESIDENT Nov 02, 2025 17:29 DENNIS CHAVARRIA MD Nov 02, 2025 22:20
[2025-11-03] VITALS (19 sets, daily range): BP systolic 102–143; BP diastolic 60–72; PULSE 60–77; RESP 16–20; TEMP 97.2–98.1; O2SAT 91–100
[2025-11-03 10:53] LABS: Hemoglobin 9.3 g/dL (12.2-16.2); Nucleated Red Blood Cells % 0.1 %
[2025-11-03 10:55] LABS: Hematocrit 29.3 % (36.0-46.0); Mean Corpuscular Hemoglobin 26.2 pg (28.0-32.0); Mean Corpuscular Volume 82.7 fL (80.0-100.0)
[2025-11-03 11:08] LABS: Alanine Aminotransferase 13 U/L (7-40); Anion Gap 8 (5-15); BUN/Creatinine Ratio 23.7 (10.0-20.0); Carbon Dioxide 25 mmol/L (20-31); Chloride 105 mmol/L (98-107); Potassium 4.9 mmol/L (3.5-5.1); Sodium 138 mmol/L (136-145)
[2025-11-03 11:09] LABS: Albumin 3.4 g/dL (3.2-4.8); Bilirubin, Total 0.4 mg/dL (0.2-1.0)
[2025-11-03 11:11] LABS: Alkaline Phosphatase 43 U/L (46-116); Blood Urea Nitrogen 46 mg/dL (9-23); Calcium 8.5 mg/dL (8.7-10.4); Glucose 164 mg/dL (74-106); Total Protein 5.6 g/dL (5.7-8.2)
--- NOTE | 2025-11-03 11:55 | DVHPNRES ---
Progress Note Date Seen: Nov 03, 2025 Resident Creating Document: LORI LANG RESIDENT Medical Necessity Reason Pt with a Central, PICC or Fol: No Subjective Review of Systems 11/03/2025: Patient was seen and examined by me at the bedside. Charts and labs reviewed. Patient complains of difficulty in swallowing, with pain in her entire mouth and some swelling of her cheeks. No other complaints. Objective vital signs Vital Sign Date Time Temp Pulse Resp B/P (MAP) Pulse Ox O2 Delivery O2 Flow Rate FiO2 11/03/25 10:30 61 20 100 11/03/25 10:22 Room Air 0.0 11/03/25 10:22 21 11/03/25 09:39 126/61 11/03/25 09:00 97.9 97.9 Total Intake and Output 11/02/25 11/02/25 11/03/25 15:00 23:00 07:00 Intake Total 550 ml 660 ml 300 ml Balance 550 ml 660 ml 300 ml medications Current Medications Medications Dose Ordered Sig/Payam Route Start Time Stop Time Status Last Admin Dose Admin Sodium Chloride 10 ml Q8HR IV 10/27/25 14:00 11/03/25 06:16 10 ML Acetaminophen/ Hydrocodone Bitart 1 tab Q4HP PRN PO 10/27/25 13:30 Cancel Ondansetron HCl 4 mg Q4HP PRN IV 10/27/25 13:30 Docusate Sodium 100 mg BIDPRN PRN PO 10/27/25 13:30 11/01/25 10:03 100 MG Acetaminophen 650 mg Q6HP PRN PO 10/27/25 13:30 Cancel Nitroglycerin 0.4 mg Q5MINP PRN SL 10/27/25 13:30 Hold Morphine Sulfate 2 mg Q30M PRN IV 10/27/25 13:30 Allopurinol 100 mg DAILY PO 10/28/25 10:00 11/03/25 09:40 100 MG Amiodarone HCl 200 mg BID PO 10/27/25 22:00 11/03/25 09:39 200 MG Apixaban 2.5 mg BID PO 10/27/25 22:00 11/03/25 09:39 2.5 MG Buspirone HCl 10 mg Q12HR PO 10/27/25 22:00 11/03/25 09:39 10 MG Carvedilol 3.125 mg BID PO 10/27/25 22:00 11/03/25 09:39 3.125 MG Montelukast Sodium 10 mg DAILY PO 10/28/25 10:00 11/03/25 09:40 10 MG Pantoprazole Sodium 40 mg QAM PO 10/28/25 07:00 11/03/25 06:16 40 MG Sildenafil Citrate 20 mg TID PO 10/27/25 22:00 11/03/25 06:16 20 MG Atorvastatin Calcium 40 mg HS PO 10/27/25 22:00 11/02/25 21:47 40 MG Guaifenesin/ Dextromethorphan 10 ml Q4HP PRN PO 10/28/25 05:00 11/02/25 10:26 10 ML Ipratropium [place] 0.5 mg Q4HWA NEB 10/28/25 14:00 Cancel Levalbuterol HCl 1.25 mg Q6HR NEB 10/28/25 18:00 UNV Levalbuterol HCl 1.25 mg Q4HR NEB 10/28/25 14:00 11/03/25 10:22 1.25 MG Ipratropium [place] 0.5 mg Q4HR NEB 10/28/25 14:00 11/03/25 10:22 0.5 MG Methylprednisolone Sodium Succinate 40 mg BID IV 10/28/25 12:45 11/03/25 09:39 40 MG Ertapenem 0.5 gm/ Sodium Chloride 50 ml @ 100 mls/hr DAILY IV 10/31/25 10:00 11/03/25 09:39 100 MLS/HR Iron Sucrose 110 ml @ 110 mls/hr DAILY@1200 IV 11/02/25 12:00 11/06/25 11:59 11/03/25 11:47 110 MLS/HR Chlorhexidine Gluconate 118 ml BID TOP 11/03/25 10:45 Examination Pt is lying on bed General Appearance: Alert, Oriented X3, Cooperative, Not in acute distress HEENT: Atraumatic, Mucous membranes moist/pink, erythema on in her lower lips Respiratory: Clear to auscultation, Normal air movement, No added sounds Cardiovascular: Regular rate, Normal S1, Normal S2, No murmurs Abdominal: Active bowel sounds, Soft, no distention, no tenderness Extremities: No edema, Normal pulses, trace pitting edema bilateral limbs up to knee Skin: No Significant rash, except past surgical scars Neuro: Normal speech, sensorimotor deficits none Psych/Mental Status: Mental status NL, Mood NL Nurse was there as windlasser during examination laboratory and microbiology Laboratory Tests 11/03/25 10:23 Test 11/03/25 10:23 Range/Units Serum Glucose 164 H 74-106 mg/dL Microbiology Date/Time Source Procedure Growth Status 11/01/25 09:02 Blood Blood Culture - Preliminary NO GROWTH AFTER 48 HOURS OF INCUBATION. Resulted 10/28/25 11:15 Nose MRSA Screen - Final Complete 10/27/25 12:36 Urine - [place] Urine Culture - Final Complete Labs and/or images reviewed: Labs reviewed by me, Image(s) reviewed by me Problem List/Assessment/Plan Problem List/Assessment/Plan Liliam Shook, an 85-year-old female with extensive cardiac and pulmonary history including CHF, CKD, COPD, AFib, prior [place], pacemaker, and S/P TAVR, residing in assisted living, presented via EMS with shortness of breath and increased work of breathing, reporting dry cough and mild chest discomfort attributed to reflux. Assessment # Possible Gram-positive /negative bacterial Community acquired pneumonia. # Sepsis secondary to pneumonia # ESBL bacteremia on Invanz # Acute on chronic diastolic heart failure # Paroxysmal Atrial fibrillation (CHADS VASC 5) # secondary hypercoagulability state on Eliquis. 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 # Possible aphthous ulcer Plan: #Downgraded to med-surge, off of levophed. #Repeat blood culture in 48hr shows no growth, f/u of 10/27 ESBL blood, ECHO negative for endocarditis, day 5/14 of Ertepenam to continue. #midline line for IV abx. #PT for DME and deconditioning #SW consult once we know patients discharge disposition; barrier to discharge: patient lives in [facility] which does have provision for continuation of IV medication. overhead line worker on board #IV iron as ferritin 15, poor oral intake day3/ #chlorhexidine b.i.d. daily #continue rest of the management Barriers to Discharge: SW as needed. Goals of care discussed with the patient team for more than 25 minutes: Full code: status Case discussed with Dr. Chavarria and team. Plan discussed with: Patient, Other (rn) My Orders My Orders Orders - LORI LANG Procedure Category Date Status Time Schedule For Dc MOODY 11/02/25 In Process Clinic F/U 11:50 Complete Blood Count LAB 11/04/25 Verified 04:00 Basic Metabolic Panel LAB 11/04/25 Verified 04:00 Dietary Evaluation Review Comments: Diet Order CCHO-60 Cardiac Renal diet Protein restriction: 50g/day Logic Protein restriction Helps slow CKD progression Reduces nitrogenous waste and uremic symptoms Increase carbohydrate intake Provides adequate energy Prevents muscle catabolism and supports glycemic control Expected Outcomes/Goals: to lessen Umria syndrome Visit Coding STANDARD RES Billing Provider: DENNIS CHAVARRIA MD Date of Service if different f: Nov 03, 2025 Common Visit Codes: [id number] INP/OBS CARE(HIGH) LORI LANG RESIDENT Nov 03, 2025 11:55
[2025-11-03] MEDS: CHLORHEXIDINE 0.12% ORAL rinse 473ML MT SCH (22:13)
[2025-11-04] VITALS (17 sets, daily range): BP systolic 121–147; BP diastolic 64–79; PULSE 61–68; RESP 16–21; TEMP 97.1–98.5; O2SAT 93–99
[2025-11-04 06:40] LABS: Hemoglobin 9.5 g/dL (12.2-16.2); Mean Corpuscular Volume 82.9 fL (80.0-100.0)
[2025-11-04 06:42] LABS: Hematocrit 30.5 % (36.0-46.0); Mean Corpuscular Hemoglobin 25.9 pg (28.0-32.0)
[2025-11-04 06:51] LABS: Chloride 103 mmol/L (98-107); Potassium 4.8 mmol/L (3.5-5.1); Sodium 138 mmol/L (136-145)
[2025-11-04 06:52] LABS: Anion Gap 10 (5-15); Carbon Dioxide 25 mmol/L (20-31)
[2025-11-04 06:53] LABS: Calcium 8.6 mg/dL (8.7-10.4)
[2025-11-04 06:57] LABS: BUN/Creatinine Ratio 27.6 (10.0-20.0)
[2025-11-04 07:00] LABS: Blood Urea Nitrogen 54 mg/dL (9-23); Glucose 196 mg/dL (74-106)
[2025-11-04 08:18] LABS: Total Cells Counted 100.0 (100)
[2025-11-04 08:19] LABS: Anisocytosis Moderate
--- NOTE | 2025-11-04 11:28 | DVHPNRES ---
Progress Note Date Seen: Nov 04, 2025 Resident Creating Document: LORI LANG RESIDENT Medical Necessity Reason Pt with a Central, PICC or Fol: No Subjective Review of Systems 11/04/2025: Patient was seen and examined by me at the bedside. Charts and labs reviewed. Patient complains of increased difficulty in swallowing, pain in her tongue, in her lips and feels that her cheeks are more swollen as there are small ulcers in her mouth. Patient reports: Feels worse Changes from previous H/P or p: No Changes Objective vital signs Vital Sign Date Time Temp Pulse Resp B/P (MAP) Pulse Ox O2 Delivery O2 Flow Rate FiO2 11/04/25 09:09 97.8 63 18 138/66 (90) 94 97.8 11/04/25 09:01 Room Air* 0 21 Total Intake and Output 11/03/25 11/03/25 11/04/25 15:00 23:00 07:00 Intake Total 50 ml 600 ml 740 ml Balance 50 ml 600 ml 740 ml medications Current Medications Medications Dose Ordered Sig/Payam Route Start Time Stop Time Status Last Admin Dose Admin Sodium Chloride 10 ml Q8HR IV 10/27/25 14:00 11/04/25 06:02 10 ML Acetaminophen/ Hydrocodone Bitart 1 tab Q4HP PRN PO 10/27/25 13:30 Cancel Ondansetron HCl 4 mg Q4HP PRN IV 10/27/25 13:30 Docusate Sodium 100 mg BIDPRN PRN PO 10/27/25 13:30 11/01/25 10:03 100 MG Acetaminophen 650 mg Q6HP PRN PO 10/27/25 13:30 Cancel Nitroglycerin 0.4 mg Q5MINP PRN SL 10/27/25 13:30 Hold Morphine Sulfate 2 mg Q30M PRN IV 10/27/25 13:30 Allopurinol 100 mg DAILY PO 10/28/25 10:00 11/04/25 08:43 100 MG Amiodarone HCl 200 mg BID PO 10/27/25 22:00 11/04/25 08:42 200 MG Apixaban 2.5 mg BID PO 10/27/25 22:00 11/04/25 08:42 2.5 MG Buspirone HCl 10 mg Q12HR PO 10/27/25 22:00 11/04/25 08:41 10 MG Carvedilol 3.125 mg BID PO 10/27/25 22:00 11/04/25 08:42 3.125 MG Montelukast Sodium 10 mg DAILY PO 10/28/25 10:00 11/04/25 08:42 10 MG Pantoprazole Sodium 40 mg QAM PO 10/28/25 07:00 11/04/25 06:01 40 MG Sildenafil Citrate 20 mg TID PO 10/27/25 22:00 11/04/25 06:02 20 MG Atorvastatin Calcium 40 mg HS PO 10/27/25 22:00 11/03/25 22:14 40 MG Guaifenesin/ Dextromethorphan 10 ml Q4HP PRN PO 10/28/25 05:00 11/02/25 10:26 10 ML Ipratropium [place] 0.5 mg Q4HWA [facility] [place] 10/28/25 14:00 Cancel Levalbuterol HCl 1.25 mg Q6HR [facility] [place] 10/28/25 18:00 UNV Levalbuterol HCl 1.25 mg Q4HR [facility] [place] 10/28/25 14:00 11/04/25 09:01 1.25 MG Ipratropium [place] 0.5 mg Q4HR [facility] [place] 10/28/25 14:00 11/04/25 09:01 0.5 MG Methylprednisolone Sodium Succinate 40 mg BID IV 10/28/25 12:45 11/04/25 08:41 40 MG Ertapenem 0.5 gm/ Sodium Chloride 50 ml @ 100 mls/hr DAILY IV 10/31/25 10:00 11/04/25 08:41 100 MLS/HR Iron Sucrose 110 ml @ 110 mls/hr DAILY@1200 IV 11/02/25 12:00 11/06/25 11:59 11/03/25 11:47 110 MLS/HR Chlorhexidine Gluconate 15 ml Q12HR [place] 11/03/25 22:00 11/04/25 08:41 15 ML Examination Pt is lying on bed General Appearance: Alert, Oriented X3, Cooperative, Not in acute distress HEENT: Atraumatic, Mucous membranes moist/pink, erythema on in her lower lips Respiratory: Clear to auscultation, Normal air movement, No added sounds Cardiovascular: Regular rate, Normal S1, Normal S2, No murmurs Abdominal: Active bowel sounds, Soft, no distention, no tenderness Extremities: No edema, Normal pulses, trace pitting edema bilateral limbs up to knee Skin: No Significant rash, except past surgical scars Neuro: Normal speech, sensorimotor deficits none Psych/Mental Status: Mental status NL, Mood NL Nurse was there as program research specialist during examination laboratory and microbiology Laboratory Tests 11/04/25 04:42 Test 11/04/25 04:42 Range/Units Serum Glucose 196 H 74-106 mg/dL Microbiology Date/Time Source Procedure Growth Status 11/01/25 09:02 Blood Blood Culture - Preliminary NO GROWTH AFTER 72 HOURS OF INCUBATION. Resulted 10/28/25 11:15 Nose MRSA Screen - Final Complete 10/27/25 12:36 Urine - [place] Urine Culture - Final Complete Labs and/or images reviewed: Labs reviewed by me, Image(s) reviewed by me Problem List/Assessment/Plan Problem List/Assessment/Plan Liliam Shook, an 85-year-old female with extensive cardiac and pulmonary history including CHF, CKD, COPD, AFib, prior [place], pacemaker, and S/P TAVR, residing in assisted living, presented via EMS with shortness of breath and increased work of breathing, reporting dry cough and mild chest discomfort attributed to reflux. Assessment # Possible Gram-positive /negative bacterial Community acquired pneumonia. # Sepsis secondary to pneumonia # ESBL bacteremia on Invanz # Acute on chronic diastolic heart failure # Paroxysmal Atrial fibrillation (CHADS VASC 5) # secondary hypercoagulability state on Eliquis. 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 # Possible aphthous ulcer Plan: #Downgraded to med-surge, off of levophed. #Repeat blood culture in 72hrs shows no growth, f/u of 10/27 ESBL blood, ECHO negative for endocarditis, day 6/14 of Ertepenam to continue. #midline line for IV abx. #PT for DME and deconditioning #SW consult once we know patients discharge disposition; barrier to discharge: patient lives in [facility] which does have provision for continuation of IV medication. overhead line worker on board #IV iron as ferritin 15, poor oral intake day4/ #chlorhexidine b.i.d. daily #lidocaine po 2% viscous q.4 PRN #continue rest of the management diet: pureed diet Barriers to Discharge: Awaiting SNF placement Goals of care discussed with the patient team for more than 25 minutes: Full code: status Case discussed with Dr. Chavarria and team. Plan discussed with: Patient, Other (rn) My Orders My Orders Orders - LORI LANG Procedure Category Date Status Time Chlorhexidine Oral PHA 11/03/25 In Process Rinse (Chlorhexidine 22:00 Dietary Evaluation Review Comments: Diet Order CCHO-60 Cardiac Renal diet Protein restriction: 50g/day Logic Protein restriction Helps slow CKD progression Reduces nitrogenous waste and uremic symptoms Increase carbohydrate intake Provides adequate energy Prevents muscle catabolism and supports glycemic control Expected Outcomes/Goals: to lessen Umria syndrome Visit Coding STANDARD RES Billing Provider: DENNIS CHAVARRIA MD Date of Service if different f: Nov 04, 2025 Common Visit Codes: [id number] INP/OBS CARE(HIGH) LORI LANG RESIDENT Nov 04, 2025 11:28 DENNIS CHAVARRIA MD Nov 04, 2025 18:09
[2025-11-05] VITALS (16 sets, daily range): BP systolic 108–156; BP diastolic 55–92; PULSE 60–74; RESP 16–22; TEMP 97.7–98.9; O2SAT 92–100
[2025-11-05] MEDS: GABAPENTIN 300 MG CAP PO ONE (01:21)
[2025-11-05] MEDS: LIDOCAINE VISCOUS 2% 15ML UD MT PRN (06:11)
[2025-11-05 06:58] LABS: Mean Corpuscular Volume 83.3 fL (80.0-100.0)
[2025-11-05 07:00] LABS: Hematocrit 29.4 % (36.0-46.0); Hemoglobin 9.2 g/dL (12.2-16.2); Mean Corpuscular Hemoglobin 26.2 pg (28.0-32.0)
[2025-11-05 07:06] LABS: Anion Gap 10 (5-15); Carbon Dioxide 23 mmol/L (20-31); Chloride 105 mmol/L (98-107); Sodium 138 mmol/L (136-145)
[2025-11-05 07:10] LABS: Calcium 8.7 mg/dL (8.7-10.4); Potassium 5.1 mmol/L (3.5-5.1)
[2025-11-05 07:12] LABS: BUN/Creatinine Ratio 20.0 (10.0-20.0)
[2025-11-05 07:13] LABS: Blood Urea Nitrogen 40 mg/dL (9-23); Glucose 198 mg/dL (74-106)
[2025-11-05 09:07] LABS: Anisocytosis Slight; Total Cells Counted 100.0 (100)
[2025-11-05] MEDS: LIDOCAINE VISCOUS 2% 15ML UD MT SCH (14:08)
[2025-11-05] MEDS ORDERED: methylPREDNISolone 4 MG TAB PO SCH (14:30)
--- NOTE | 2025-11-05 15:37 | DVHPNRES ---
Progress Note Date Seen: Nov 05, 2025 Resident Creating Document: LORI LANG RESIDENT Medical Necessity Reason Pt with a Central, PICC or Fol: No Subjective Review of Systems 11/05/2025: Patient was seen and examined by me at the bedside. Charts and labs reviewed. Patient complains of increased difficulty in swallowing, and complains her cheeks and tongue feel swollen. She reports of pain in her entire mouth stating the xylocaine she received helps a bit but she would like it more frequently. Discussed with patients son Keyon regarding SNF and he agrees Objective vital signs Vital Sign Date Time Temp Pulse Resp B/P (MAP) Pulse Ox O2 Delivery O2 Flow Rate FiO2 11/05/25 14:47 64 16 100 11/05/25 14:41 Room Air 0.0 11/05/25 14:41 21 11/05/25 13:00 98.1 133/64 (87) 98.1 Total Intake and Output 11/04/25 11/04/25 11/05/25 15:00 23:00 07:00 Intake Total 100 ml 525 ml 460 ml Output Total 400 ml Balance 100 ml 125 ml 460 ml medications Current Medications Medications Dose Ordered Sig/Payam Route Start Time Stop Time Status Last Admin Dose Admin Sodium Chloride 10 ml Q8HR IV 10/27/25 14:00 11/05/25 14:08 10 ML Acetaminophen/ Hydrocodone Bitart 1 tab Q4HP PRN PO 10/27/25 13:30 Cancel Ondansetron HCl 4 mg Q4HP PRN IV 10/27/25 13:30 Docusate Sodium 100 mg BIDPRN PRN PO 10/27/25 13:30 11/01/25 10:03 100 MG Acetaminophen 650 mg Q6HP PRN PO 10/27/25 13:30 Cancel Nitroglycerin 0.4 mg Q5MINP PRN SL 10/27/25 13:30 Hold Morphine Sulfate 2 mg Q30M PRN IV 10/27/25 13:30 Allopurinol 100 mg DAILY PO 10/28/25 10:00 11/05/25 09:16 100 MG Amiodarone HCl 200 mg BID PO 10/27/25 22:00 11/05/25 09:17 200 MG Apixaban 2.5 mg BID PO 10/27/25 22:00 11/05/25 09:16 2.5 MG Buspirone HCl 10 mg Q12HR PO 10/27/25 22:00 11/05/25 09:16 10 MG Carvedilol 3.125 mg BID PO 10/27/25 22:00 11/05/25 09:17 3.125 MG Montelukast Sodium 10 mg DAILY PO 10/28/25 10:00 11/05/25 09:16 10 MG Pantoprazole Sodium 40 mg QAM PO 10/28/25 07:00 11/05/25 06:09 40 MG Sildenafil Citrate 20 mg TID PO 10/27/25 22:00 11/05/25 14:08 20 MG Atorvastatin Calcium 40 mg HS PO 10/27/25 22:00 11/04/25 22:25 40 MG Guaifenesin/ Dextromethorphan 10 ml Q4HP PRN PO 10/28/25 05:00 11/02/25 10:26 10 ML Ipratropium [place] 0.5 mg Q4HWA [facility] 10/28/25 14:00 Cancel Levalbuterol HCl 1.25 mg Q6HR [facility] 10/28/25 18:00 UNV Levalbuterol HCl 1.25 mg Q4HR [facility] 10/28/25 14:00 11/05/25 14:41 1.25 MG Ipratropium [place] 0.5 mg Q4HR [facility] 10/28/25 14:00 11/05/25 14:41 0.5 MG Ertapenem 0.5 gm/ Sodium Chloride 50 ml @ 100 mls/hr DAILY IV 10/31/25 10:00 11/05/25 09:29 100 MLS/HR Iron Sucrose 110 ml @ 110 mls/hr DAILY@1200 IV 11/02/25 12:00 11/06/25 11:59 11/05/25 11:41 110 MLS/HR Chlorhexidine Gluconate 15 ml Q12HR [place] 11/03/25 22:00 11/05/25 09:15 15 ML Lidocaine HCl 5 ml Q2HR [place] 11/05/25 14:00 11/05/25 14:08 5 ML Methylprednisolone 4 mg DAILY@LUNCH PO 11/06/25 12:00 11/08/25 23:55 Methylprednisolone 8 mg DAILY@DINNER PO 11/06/25 17:30 11/07/25 23:55 Methylprednisolone 4 mg DAILY@DINNER PO 11/08/25 17:30 11/10/25 23:55 Methylprednisolone 4 mg DAILY@BREAKFAST PO 11/07/25 08:00 11/11/25 23:55 Methylprednisolone 4 mg DAILY@BREAKFAST PO 11/06/25 08:00 11/09/25 23:55 Examination Pt is lying on bed General Appearance: Alert, Oriented X3, Cooperative, Not in acute distress HEENT: Atraumatic, Mucous membranes moist/pink, presence of aphthous ulcers on tongue and in her cheek Respiratory: Clear to auscultation, Normal air movement, No added sounds Cardiovascular: Regular rate, Normal S1, Normal S2, No murmurs Abdominal: Active bowel sounds, Soft, no distention, no tenderness Extremities: No edema, Normal pulses, trace pitting edema bilateral limbs up to knee Skin: No Significant rash, except past surgical scars Neuro: Normal speech, sensorimotor deficits none Psych/Mental Status: Mental status NL, Mood NL Nurse was there as engineer exhauster during examination laboratory and microbiology Laboratory Tests 11/05/25 06:37 Test 11/05/25 06:37 Range/Units Serum Glucose 198 H 74-106 mg/dL Microbiology Date/Time Source Procedure Growth Status 11/01/25 09:02 Blood Blood Culture - Preliminary NO GROWTH AFTER 72 HOURS OF INCUBATION. Resulted 10/28/25 11:15 Nose MRSA Screen - Final Complete 10/27/25 12:36 Urine - [place] Urine Culture - Final Complete Labs and/or images reviewed: Labs reviewed by me, Image(s) reviewed by me Problem List/Assessment/Plan Problem List/Assessment/Plan Liliam Shook, an 85-year-old female with extensive cardiac and pulmonary history including CHF, CKD, COPD, AFib, prior [place], pacemaker, and S/P TAVR, residing in assisted living, presented via EMS with shortness of breath and increased work of breathing, reporting dry cough and mild chest discomfort attributed to reflux. Assessment # Possible Gram-positive /negative bacterial Community acquired pneumonia. # Sepsis secondary to pneumonia # ESBL bacteremia on Invanz # Acute on chronic diastolic heart failure # Paroxysmal Atrial fibrillation (CHADS VASC 5) # secondary hypercoagulability state on Eliquis. 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 # Possible aphthous ulcer Plan: #Downgraded to med-surge, off of levophed. #Repeat blood culture in 48hr shows no growth, f/u of 10/27 ESBL blood, ECHO negative for endocarditis, day 04/24 of Ertepenam to continue. #midline line for IV abx. #PT for DME and deconditioning #SW working to find placement in [facility], awaiting for female bed #IV iron as ferritin 15, poor oral intake day 02/13 #chlorhexidine b.i.d. daily #xylocaine 2%viscous 5ml q2hr #continue rest of the management Barriers to Discharge: SW as needed. Goals of care discussed with the patient team for more than 25 minutes: Full code: status Case discussed with Dr. Valenzuela, and team. Plan discussed with: Patient, Other (rn) My Orders My Orders Orders - LORI LANG Procedure Category Date Status Time Methylprednisolone PHA 11/07/25 In Process (Medrol) 21:00 Methylprednisolone PHA 11/06/25 In Process (Medrol) 08:00 Methylprednisolone PHA 11/07/25 In Process (Medrol) 08:00 Methylprednisolone PHA 11/06/25 In Process (Medrol) 08:00 Methylprednisolone PHA 11/06/25 In Process (Medrol) 12:00 Methylprednisolone PHA 11/06/25 In Process (Medrol) 17:30 Dietary Evaluation Review Comments: Diet Order CCHO-60 Cardiac Renal diet Protein restriction: 50g/day Logic Protein restriction Helps slow CKD progression Reduces nitrogenous waste and uremic symptoms Increase carbohydrate intake Provides adequate energy Prevents muscle catabolism and supports glycemic control Expected Outcomes/Goals: to lessen Umria syndrome Visit Coding STANDARD RES Billing Provider: TOOTIE VALENZUELA MD Date of Service if different f: Nov 05, 2025 Common Visit Codes: [id number] INP/OBS CARE(HIGH) LORI LANG Nov 05, 2025 15:37
--- NOTE | 2025-11-05 17:13 | DVHDSRES ---
Discharge Summary Date of Admission Resident Creating Document: LORI LANG RESIDENT Oct 27, 2025 at 13:16 Date of Discharge: Nov 02, 2025 Admitting Diagnosis Sepsis, unspecified organism Labs/Diagnostic Data: Laboratory Results Test 11/05/25 06:37 11/04/25 04:42 11/03/25 10:23 11/02/25 09:25 White Blood Count 15.3 10^3/uL (4.4-10.8) Red Blood Count 3.53 10^6/uL (4.0-5.20) Hemoglobin 9.2 g/dL (12.2-16.2) Hematocrit 29.4 % (36.0-46.0) Mean Corpuscular Volume 83.3 fL (80.0-100.0) Mean Corpuscular Hemoglobin 26.2 pg (28.0-32.0) Mean Corpuscular Hemoglobin Concent 31.4 g/dL (32.0-36.0) Red Cell Distribution Width 21.0 % (11.8-14.3) Platelet Count 273 10^3/uL (140-450) Mean Platelet Volume 9.9 fL (6.9-10.8) Neutrophils (%) (Auto) % (37.0-80.0) Lymphocytes (%) (Auto) % (10.0-50.0) Monocytes (%) (Auto) % (0.0-12.0) Basophils (%) (Auto) % (0.0-2.0) Neutrophils # (Auto) 10 ^3/uL (1.6-8.6) Lymphocytes # (Auto) 10 ^3/uL (0.4-5.4) Monocytes # (Auto) 10 ^3/uL (0-1.3) Differential Total Cells Counted 100.0 (100) Neutrophils % (Manual) 89 (37.0-80.0) Band Neutrophils % (Manual) 2 Lymphocytes % (Manual) 5 (10.0-50.0) Monocytes % (Manual) 4 (0-12) Eosinophils % (Manual) 0 (0-7) Basophils % (Manual) 0 (0.0-2.0) Metamyelocytes % (manual) 0 Myelocytes % (Manual) 0 Promyelocytes % (Manual) 0 Blast Cells % (Manual) 0 Reactive Lymphocytes 0 Platelet Estimate Adequate Anisocytosis (manual) Slight [place] Cells Few Schistocytes Few Sodium Level 138 mmol/L (136-145) Potassium Level 5.1 mmol/L (3.5-5.1) Chloride Level 105 mmol/L (98-107) Carbon Dioxide Level 23 mmol/L (20-31) Anion Gap 10 (5-15) Blood Urea Nitrogen 40 mg/dL (9-23) Creatinine 2.00 mg/dL (0.550-1.02) Glomerular Filtration Rate Calc 24 mL/min (>90) BUN/Creatinine Ratio 20.0 (10.0-20.0) Serum Glucose 198 mg/dL (74-106) Calcium Level 8.7 mg/dL (8.7-10.4) Hypochromasia (manual) Slight Eosinophils (%) (Auto) 0.0 % (0.0-7.0) Eosinophils # (Auto) 0 10 ^3/uL (0-0.8) Basophils # (Auto) 0 10 ^3/uL (0-0.2) Nucleated Red Blood Cells 0.1 % Total Bilirubin 0.4 mg/dL (0.2-1.0) Aspartate Amino Transferase (AST) 14 U/L (13-40) Alanine Aminotransferase (ALT) 13 U/L (7-40) Alkaline Phosphatase 43 U/L (46-116) Total Protein 5.6 g/dL (5.7-8.2) Albumin 3.4 g/dL (3.2-4.8) Random Vancomycin Level 11.3 ug/mL (5-10) Test 11/01/25 14:56 10/29/25 05:12 10/27/25 11:20 10/27/25 10:34 Prothrombin Time 12.4 sec (9.3-11.8) Prothrombin Time INR 1.19 (0.9-1.15) Activated Partial Thromboplast Time 28.6 SEC (24.5-34.5) Magnesium Level 2.2 mg/dL (1.6-2.6) Troponin I High Sensitivity 101 ng/L (</=34) Influenza Type A Antigen Negative (Negative) Influenza Type B Antigen Negative (Negative) SARS-CoV-2 Antigen (Rapid) Negative (NEGATIVE) Test 10/27/25 09:00 10/27/25 08:15 Urine Color Light-yellow (Yellow) Urine Clarity Clear (Clear) Urine pH 6.0 (5.0-9.0) Urine Specific [place] 1.014 (1.001-1.035) Urine Protein Negative (Negative) Urine Ketones Negative (Negative) Urine Blood Negative /uL (Negative) Urine Nitrite Negative (Negative) Urine Bilirubin Negative (Negative) Urine Urobilinogen Normal mg/dL (Negative) Urine Leukocyte Esterase Negative /uL (Negative) Urine RBC None seen /hpf (0 - 4) Urine Microscopic WBC 1 /HPF (0-5) Urine Squamous Epithelial Cells Few /hpf (<5) Urine Bacteria Few /hpf (None Seen) Urine Glucose Normal mg/dL (Normal) Lactic Acid Level 1.7 mmol/L (0.4-2.0) B-Type Natriuretic Peptide 647.35 pg/mL (0-100) Other Laboratory Tests 11/05/25 06:37 Brief Hx & Hospital Course: Liliam Shook, an 85-year-old female with extensive cardiac and pulmonary history including CHF, CKD, COPD, AFib, prior [place], pacemaker, and S/P TAVR, residing in assisted living, presented via EMS with shortness of breath and increased work of breathing, reporting dry cough and mild chest discomfort attributed to reflux. patient was in septic shock on presentation and was given Levophed to increase her blood pressure. She was on the monitoring and evaluation advisor and slowly blood pressure returned to baseline. Patient was found to have ESBL positive bacteremia and acute on chronic diastolic heart failure. She also had paroxysmal atrial fibrillation and Eliquis was continued. Drip showed NSTEMI type 2. For her ESBL positive bacteremia patient was given ertapenem which needs to be continued even after patient is discharged. We gave her IV steroids as she also had acute exacerbation of COPD. Given that patient requires a longer time, ertapenem for 9 more days, a midline was placed. Patient also had aphthous ulcers for which accident mouthwash and xylocaine 2% viscous was given to relieve pain. Patient will be [place] for continuation of IV medication as she lives in starting in facility which does not allow IV administration of medication. Patient is stable and can be discharged. Pt is lying on bed General Appearance: Alert, Oriented X3, Cooperative, Not in acute distress HEENT: Atraumatic, Mucous membranes moist/pink, presence of aphthous ulcers on tongue and in her cheek Respiratory: Clear to auscultation, Normal air movement, No added sounds Cardiovascular: Regular rate, Normal S1, Normal S2, No murmurs Abdominal: Active bowel sounds, Soft, no distention, no tenderness Extremities: No edema, Normal pulses, trace pitting edema bilateral limbs up to knee Skin: No Significant rash, except past surgical scars Neuro: Normal speech, sensorimotor deficits none Psych/Mental Status: Mental status NL, Mood NL Nurse was there as ribber during examination Operations or Procedures PROCEDURE(s): CXRP - CHEST PORTABLE REASON: sob ORDER NUMBER(s): [id number], ACCESSION NUMBER(s): [id number] CHEST RADIOGRAPH IMPRESSION: Cardiomegaly. Increased interstitial prominence. This may represent pulmonary vascular congestion and/or viral pneumonia. Condition at Discharge: Stable Final Diagnosis/Problems List # Possible Gram-positive /negative bacterial Community acquired pneumonia. # Septic shock secondary to pneumonia # ESBL bacteremia on Invanz # Acute on chronic diastolic heart failure # Paroxysmal Atrial fibrillation (CHADS VASC 5) # secondary hypercoagulability state on Eliquis. 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 # Possible aphthous ulcer Discharge Disposition: [facility] Facility Discharge Instruct/Medications Diet: Consistent carbohydrate, Cardiac 2g Na,low cholest, Renal Activity: No Restrictions, As Tolerated Follow Up/Referral: f/u with pcp in 2 weeks Medications: as per emr Scheduled Allopurinol (Allopurinol), 1 TAB PO DAILY, (Reported) Amiodarone HCl (Amiodarone HCl), 1 TAB PO BID, (Reported) Apixaban [place] (Eliquis), 1 TAB PO BID, (Reported) Atorvastatin Calcium (Lipitor), 1 TAB PO DAILY, (Reported) Buspirone Hcl (Buspirone Hcl), 10 MG PO Q12HR, (Reported) Buspirone Hcl (Buspirone Hcl), 10 MG PO Q6HR, (Reported) Carvedilol (Carvedilol), 1 TAB PO BID, (Reported) Colchicine (Colchicine), 1 CAP PO DAILY, (Reported) Ferrous Sulfate (Iron (Ferrous Sulfate)), 50 MG PO MWF Furosemide (Furosemide), 1 TAB PO DAILY, (Reported) Montelukast Sodium (Montelukast Sodium), 1 TAB PO DAILY, (Reported) Pantoprazole Sodium Sesquihydr (Protonix), 1 TAB PO QAM, (Reported) Sildenafil Citrate (Sildenafil Citrate), 1 TAB PO TID, (Reported) Scheduled PRN Albuterol Sulfate (Albuterol Sulfate Hfa), 2 PUFF IN QID PRN for SHORTNESS OF BREATH, (Reported) Discharge Statement: "Patient was advised to return to the ER or call 911 if any headaches, dizziness, shortness of breath, chest pain, abdominal pain, bleeding, fevers, or worsening of medical condition. Patient was counseled about treatment plan, medications, possible side effects, patientverbalized understanding. All questions were answered to the best of my ability. This discharge took greater then 30 minutes in planning, reviewing documentation, counseling the patient, and discussing with other team members." ASSESSMENT ASSESSMENT Assessment # Possible Gram-positive /negative bacterial Community acquired pneumonia. # Septic shock secondary to pneumonia # ESBL bacteremia Visit Coding STANDARD RES Billing Provider: TOOTIE FLORIAN MD Date of Service if different f: Nov 05, 2025 Common Visit Codes: 68557-YSI/OBS DISCH DAY >30min LORI LANG RESIDENT Nov 05, 2025 17:13
[2025-11-06] MEDS ORDERED: methylPREDNISolone 4 MG TAB PO ONE ×4 (07:00→22:00)
[2025-11-06] MEDS ORDERED: methylPREDNISolone 4 MG TAB PO SCH ×3 (14:30→21:00)
[2025-11-07] MEDS ORDERED: methylPREDNISolone 4 MG TAB PO ONE ×5 (07:00→22:00)
[2025-11-08] MEDS ORDERED: methylPREDNISolone 4 MG TAB PO ONE ×4 (07:00→22:00)
[2025-11-08] MEDS ORDERED: methylPREDNISolone 4 MG TAB PO SCH ×2 (08:00→21:00)
[2025-11-09] MEDS ORDERED: methylPREDNISolone 4 MG TAB PO ONE ×3 (07:00→22:00)
[2025-11-10] MEDS ORDERED: methylPREDNISolone 4 MG TAB PO ONE ×2 (07:00→22:00)
[2025-11-11] MEDS ORDERED: methylPREDNISolone 4 MG TAB PO ONE (07:00)
== END 2025-11-05 21:05 | DRG 871 ==
LOC: EDBD 07:44 → ER 07:44 → OVERFLOW 13:16 → DOU 10-28 11:59 → TELE-CENTR 11-01 12:57 → CENTRAL 11-03 10:01
PROVIDERS: ADMIT Internal Medicine Geriatric Medicine; ATTEND Internal Medicine Geriatric Medicine
PROC: 05HD33Z Insertion of Infusion Device into Right Cephalic Vein, Percutaneous Approach (ICD-10-PCS; principal; 2025-11-01)
PROC: B54MZZA Ultrasonography of Right Upper Extremity Veins, Guidance (ICD-10-PCS; 2025-11-01)
DX: A41.9 Sepsis, unspecified organism (principal); I21.A1 Myocardial infarction type 2; I50.33 Acute on chronic diastolic (congestive) heart failure; J15.69 Pneumonia due to other Gram-negative bacteria; J15.9 Unspecified bacterial pneumonia; R65.21 Severe sepsis with septic shock; J96.01 Acute respiratory failure with hypoxia; N17.0 Acute kidney failure with tubular necrosis; I13.0 Hypertensive heart and chronic kidney disease with heart failure and stage 1 through stage 4 chronic kidney disease, or unspecified chronic kidney disease; I27.20 Pulmonary hypertension, unspecified; J44.1 Chronic obstructive pulmonary disease with (acute) exacerbation; N18.4 Chronic kidney disease, stage 4 (severe); I05.0 Rheumatic mitral stenosis; D50.9 Iron deficiency anemia, unspecified; D68.69 Other thrombophilia; Z16.12 Extended spectrum beta lactamase (ESBL) resistance; Z20.822 Contact with and (suspected) exposure to COVID-19; E78.5 Hyperlipidemia, unspecified; K21.9 Gastro-esophageal reflux disease without esophagitis; K12.0 Recurrent oral aphthae; I48.0 Paroxysmal atrial fibrillation; M10.9 Gout, unspecified; Z95.2 Presence of prosthetic heart valve; Z88.5 Allergy status to narcotic agent; Z88.6 Allergy status to analgesic agent; Z95.0 Presence of cardiac pacemaker; I25.2 Old myocardial infarction
CPT/HCPCS: 36415; 71045; 80048; 80053; 80202; 81001; 83605; 83735; 83880; 84484; 85007; 85025; 85027; 85610; 85730; 87040; 87077; 87081; 87086; 87186; 87426; 87804; 93005; 93306; 94640; 97163; G0378; J1335; J1756; J1885